=== PATIENT | female | born 1950 | race Caucasian/White ===

== ENCOUNTER 2018-12-26 13:17 | Emergency (ER) | payer OTHER, SELFPAY ==
[2018-12-26 13:18] VITALS: BP 148/99; PULSE 74; RESP 17; TEMP 36; O2SAT 100; BMI 35.2
--- NOTE | 2018-12-26 13:29 | EKG12_ITS ---
Test Reason : BACK PAIN Blood Pressure : / mmHG Vent. Rate : 074 BPM Atrial Rate : 074 BPM P-R Int : 146 ms QRS Dur : 078 ms QT Int : 384 ms P-R-T Axes : 027 054 041 degrees QTc Int : 426 ms Normal sinus rhythm Normal ECG Confirmed by WOODROW JOYCE, HANANE ([id number]), news editor KESHA ALBERT ([id number]) on 12/30/2018 1:35:01 PM Referred By: RADHA Confirmed By:HANANE TROY MD
--- NOTE | 2018-12-26 13:31 | ED.DCSUM_ITS ---
History of Present Illness Chief Complaint: Back Informant: Patient Onset: Today Timing: Continuous Current Severity: Mild Maximum Severity: Moderate Worsened by: Nothing Relieved by: Nothing Narrative: Patient states that she was doing mulch in her garden earlier today. When she came inside she had some mild pain to the right lateral posterior ribs. She went to the local grocery store and while there had pain shoot across her back around the bra line. She does not feel short of breath or have anterior chest pain. Patient has history of breast cancer. - Past Medical History (1) Asthma Status: Chronic (2) Diabetes Status: Chronic (3) HLD (hyperlipidemia) Status: Chronic (4) RSD (reflex sympathetic dystrophy) Status: Chronic (5) Breast cancer Status: Resolved Comment: in remission Past Medical History - Allergies and Home Meds Allergies/Adverse Reactions: Allergies typhoid 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 (Verified 12/26/18 13:21) Anaphylaxis Primary Care Physician: Liam Solano MD [Primary Care Provider] - Prior records reviewed: Yes Past Medical History: - - Reviewed Surgical History: mastectomy Smoking Status: Never smoker - Family History Paternal Family History: Reports: Heart Disease Maternal Family History: Reports: Cancer - Uterine and breast cancer, Stroke Review of Systems General: Denies: Chills, Fever Cardiovascular: Denies: Chest pain, Palpitations, Heart racing Respiratory: Denies: Dyspnea, Cough Genitourinary: Denies: Dysuria, Hematuria Musculoskeletal: Reports: Back pain. Denies: Extremity Pain Physical Exam Vital Signs/Narrative: Vital Signs Temp Pulse Resp BP Pulse Ox 12/26/18 13:18 96.8 F L 74 17 148/99 H 100 General: Well nourished, Well developed ENT: Moist mucous membranes Cardiovascular: Regular rate, Regular rhythm Respiratory: No distress, CTA bilaterally Abdomen: Soft, Nontender Back: Nontender, - - No reproducible back tenderness. No skin rash or lesions noted over the area of interest. Extremities: Nontender, No edema Neurological: Alert, Oriented x3 Diagnostic/Tx/Re-eval Chest X-Ray - ED: 2 View, Read by ED Physician, Normal, Heart, Mediastinum, - - Postsurgical changes noted with mild atelectasis. Abnormal Lab Results 12/26/18 12/26/18 12/26/18 13:33 13:33 13:33 WBC 6.8 RBC 4.90 Hgb 14.0 Hct 42.6 MCV 86.9 MCH 28.6 MCHC 32.9 RDW 13.7 RDW Differential 43.6 Plt Count 237 MPV 9.1 Immature Gran % (Auto) 0.300 Neut % (Auto) 63.9 Lymph % (Auto) 25.0 Swisher % (Auto) 7.5 Eos % (Auto) 2.9 Baso % (Auto) 0.4 Absolute Neuts (auto) 4.4 Absolute Lymphs (auto) 1.70 Total Counted Not Reportable D-Dimer Quant (PE/DVT) 0.52 H* Sodium 139 Potassium 4.1 Chloride 107 Carbon Dioxide 26.0 Anion Gap 6 BUN 13 Creatinine 0.93 Estim Creat Clear Calc 60.03 Est GFR (MDRD) Af Amer 77 Est GFR (MDRD) Non-Af 64 BUN/Creatinine Ratio 14.0 Glucose 97 Calcium 9.4 Troponin I < 0.015 - EKG Initial EKG Interpretation: Sinus Rhythm - Normal sinus rhythm at 74 bpm with no acute ischemia. - Medical Decision Making Patient presents with right back pain rating across to the left. She has a history of breast cancer. Pain is not reproducible. Work-up has been unremarkable for blood clots or other more serious etiology. Patient believes she probably pulled a muscle when she was working earlier. She will be given a short course of [place] and Flexeril. She was warned on sedating side effects. ED Disposition - Plan for ED Patient: Disposition: Home or Assisted Living Instructions: BACK PAIN (Acute or Chronic) Prescriptions: cycloBENZAPRine HCl [Flexeril] 10 mg PO TID PRN #20 tablet PRN Reason: Muscle Spasm Hydrocodone Bitart/Apap 5-325 [[place] 5MG-325MG] 1 tablet PO Q6H PRN PRN 3 Days #10 tablet PRN Reason: Pain Referrals: Liam Solano MD [Primary Care Provider] - 3-5 Days if not improving
[2018-12-26 13:44] LABS: Absolute Neutrophil Count 4.4 X10^3/uL (2.0-7.7); Basophil# 0.03 X10^3/uL; Basophil% 0.4 % (0-1); Eosinophils% 2.9 % (0-5); Hematocrit 42.6 % (37-47); Mean Corp Hgb Conc 32.9 g/gl (32-36); Mean Corpuscular Hgb 28.6 pg (27.0-32.0); Mean Corpuscular Volume 86.9 fL (81-99); Mean Platelet Vol. 9.1 fl (6.2-12.0); Monocyte# 0.51 X10^3/uL; Monocyte% 7.5 % (0-10); Neutrophil # 4.35 X10^3/uL (2.7-7.7); Neutrophil % 63.9 % (47-70); Platelet Count 237 K/mm3 (150-450); RBC Distribution Width CV 13.7 % (11.6-14.6); RBC Distribution Width SD 43.6 fl (35.1-43.9); White Blood Count 6.8 K/mm3 (4.4-11.0)
[2018-12-26] MEDS: 0.9% Normal Saline 1,000 ML 150 ML IV (13:44)
[2018-12-26 13:48] LABS: POSITIVE COUNT NO; POSITIVE DIFFERENTIAL NO; POSITIVE MORPHOLOGY NO
[2018-12-26 13:58] LABS: Anion Gap 6 (5-15); BUN 13 mg/dL (7-18); Calcium,Total 9.4 mg/dL (8.5-10.1); Chloride 107 mmol/L (98-107); Creatinine, Serum 0.93 mg/dL (0.55-1.02); EST Glomerular Filtration Rate 64 mL/min (>60); Est Glom Filt Rate - Afr Amer 77 mL/min (>60); Estimated Creatinine Clearance 60.03 ml/min; Glucose 97 mg/dL (74-106); Potassium 4.1 mmol/L (3.5-5.1); Sodium Level 139 mmol/L (136-145)
[2018-12-26 14:09] LABS: D-Dimer Quantitative (DVT/PE) 0.52 FEU/ug/m (0.27-0.49)
--- NOTE | 2018-12-26 15:15 | RAD_ITS ---
STUDY: X-RAY CHEST REASON FOR EXAM: Female, 68 years old. Back pain radiating to right shoulder blade. TECHNIQUE: Frontal and lateral views of the chest. COMPARISON: March 19, 2017 FINDINGS: Stable hyperexpansion. There is no demonstrated pleural abnormality. Borderline cardiomegaly unchanged. Normal mediastinum and vanessa. Normal visualized pulmonary arteries. Normal visualized aortic arch and descending thoracic aorta. Normal visualized thoracic spine. Normal visualized ribs, clavicles, and shoulders. Clips project over the left hilum unchanged. RAD/Chest PA and Lateral IMPRESSION: Stable chest with no acute finding. Electronically Signed: Fabián Jean MD at 16:00 EDT , Service support ,
[2018-12-26 15:50] VITALS: BP 157/84; PULSE 77; RESP 18; O2SAT 98
== END 2018-12-26 15:52 | disposition home or self-care (01) ==
PROVIDERS: Emergency Provider Emergency Medicine; Family Provider Family Medicine; PCP Family Medicine
DX: M54.6 Pain in thoracic spine (principal); Z85.3 Personal history of malignant neoplasm of breast; J45.909 Unspecified asthma, uncomplicated; E11.9 Type 2 diabetes mellitus without complications; G90.50 Complex regional pain syndrome I, unspecified; E78.5 Hyperlipidemia, unspecified; Z79.51 Long term (current) use of inhaled steroids; Z79.899 Other long term (current) drug therapy
CPT/HCPCS: 71046; 80048; 84484; 85025; 85379; 93005; 96360; 96361; 99284; J7030; A4216

== ENCOUNTER 2024-06-11 21:29 | Emergency (ER) | payer BC, SELFPAY ==
[2024-06-11 21:30] VITALS: BP 140/96; PULSE 84; RESP 18; TEMP 36.7; O2SAT 100; BMI 31.6
--- NOTE | 2024-06-11 22:01 | CT_ITS ---
EXAM: CT HEAD WITHOUT INTRAVENOUS CONTRAST CLINICAL INDICATION: dizziness TECHNIQUE: Multiple axial images were obtained of the head without intravenous contrast. This CT exam was performed using one or more of the following dose reduction techniques: automated exposure control, adjustment of the mA and/or kV according to patient size, and/or use of iterative reconstruction technique. COMPARISON: No relevant prior studies available. FINDINGS: BRAIN AND EXTRA-AXIAL SPACES: Unremarkable. No intra- or extra-axial hemorrhage. No evidence of acute infarct. No intracranial mass or mass effect. There is preservation of the malloy/white matter interface. Posterior fossa structures are unremarkable. Ventricles are appropriate for age. No hydrocephalus. Basal cisterns are patent. BONES/JOINTS: Unremarkable. No discrete lytic or blastic abnormalities. SINUSES: Mucosal thickening in the maxillary sinuses. MASTOID AIR CELLS: Unremarkable. Clear. ORBITS: Visualized globes, extraocular muscles, optic nerves and retrobulbar fat appear unremarkable. CT/Brain/Head without Contrast IMPRESSION: No acute findings in the head/brain. Electronically Signed: Eduar Alston MD at 23:18 EST ,
--- NOTE | 2024-06-11 22:01 | EKG12_ITS ---
Test Reason : DYSRHYTHMIA Blood Pressure : */* mmHG Vent. Rate : 86 BPM Atrial Rate : 86 BPM P-R Int : 168 ms QRS Dur : 76 ms QT Int : 372 ms P-R-T Axes : 64 49 48 degrees QTcB Int : 445 ms Sinus rhythm with frequent and consecutive Premature ventricular complexes Abnormal ECG Confirmed by SOO JOYCE, CARLOS ([id number]), pictures editor KESHA ALBERT ([id number]) on 06/12/2024 11:01:35 AM Referred By: BB Confirmed By: CARLOS VANN MD
--- NOTE | 2024-06-11 22:03 | ED.VIS.CHEST ---
HPI History of Present Illness Chief Complaint: Dizziness Informant: patient Onset/Context/Timing Onset: Today Narrative Narrative: 74-year-old female presents describing dizziness, palpitations, and chest pain. From her description it sounds like she had 2 different types of dizziness today. When she got up this morning more than 12 hours ago, she felt off balance, she felt very poorly like things were moving and like she was going to fall and immediately fell back into bed, and felt like she could not move because the symptoms were going to get worse. That lasted for only a few minutes. She has never had that before. About 1 hour ago or a little more, the patient started having a different type of dizziness, she agrees to feels more faint/lightheaded and associated with frequent palpitations that feel like her heart is skipping a lot. She states she feels a little wobbly still when she tries to get up and walk and it does make the lightheadedness worse but she denies any aquiles vertiginous symptoms, she states her vision feels a little fuzzy but she denies any diplopia or focal visual field deficit or any other focal peripheral neurologic symptoms. No hearing changes or tinnitus. She denies any nausea or vomiting with any of this. She states she followed up as an outpatient with camp coordinator for the first time several weeks ago at [facility] and was basically told to go up on her atorvastatin but did not change any other medications. She states the only heart history that she knows of is a little bit of calcification around the valve. Denies any recent illness. Chest pain that she has right now is just right of sternum and just feels mild without radiation or pleuritic component. PE Risk Factors: Negative for Recent Travel/Surgery, Recent Immobilization, Prior DVT or PE, Cancer or OCP + Smoking + >/=35 [facility] Medical History Hypothyroidism History of cancer chemotherapy Home Medications ?Medication ?Instructions ?Recorded ?Last Taken ?Type Amitriptyline HCl 25 mg PO QHS 12/13/15 03/18/17 20:00 History Lipitor 40 mg PO QHS 12/13/15 03/18/17 20:00 History Synthroid 100 mcg PO DAILY 12/13/15 03/18/17 07:00 History albuterol sulfate 90 mcg/actuation 1 puff inhalation DAILY PRN PRN 12/26/15 12/26/15 History aerosol inhaler (Ventolin HFA) Shortness Of Breath guaifenesin 1,200 mg tablet, 1,200 mg PO BID 12/26/15 03/18/17 20:00 History extended release 12 hr (Mucus Relief ER) albuterol sulfate 2.5 mg/3 mL 2.5 mg inhalation Q4H PRN PRN 03/19/17 03/18/17 07:00 History (0.083 %) solution for nebulization Shortness Of Breath metoprolol succinate 25 mg 25 mg PO DAILY #30 tabs 06/12/24 Unknown Rx tablet,extended release 24 hr Allergy/AdvReac Type Severity Reaction Status Date / Time typhoid 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 Anaphylaxis Verified 06/11/24 21:30 Surgical History (Updated 06/11/24 @ 21:49 by Suad Fragoso) History of tonsillectomy Hx of mastectomy Social History Smoking Status: Never smoker ROS ROS ED Constitutional Constitutional ED: Denies chills or fever(s) Eyes Eyes: Denies change in vision or diplopia ENT ENT ED: Denies rhinorrhea or sore throat Cardiovascular Cardiovascular: Reports as per HPI, chest pain, lightheadedness and palpitations; Denies leg edema or syncope Respiratory/Chest Respiratory/Chest: Denies cough or dyspnea Gastrointestinal Gastrointestinal: Denies abdominal pain, diarrhea, nausea or vomiting Genitourinary Genitourinary ED: Denies dysuria or hematuria Musculoskeletal Musculoskeletal: Denies back pain or neck pain Integumentary Denies abscess or rash Neurologic Neurologic: Reports as per HPI, abnormal gait and dizziness; Denies abnormal hearing, abnormal speech, headache(s), paresthesias, seizure-like activity or weakness Psychiatric Psychiatric: Denies anxiety or suicidal thoughts EXAM Physical Exam Const Vital Signs: 06/11/24 21:30 06/11/24 21:47 06/11/24 22:30 Temperature 98.1 F Temperature Source Oral Pulse Rate 84 Respiratory Rate 18 Respiratory Effort Normal Non-Labored Respiratory Pattern Normal Blood Pressure 140/96 H Blood Pressure Mean 110 Pulse Ox 100 97 Oxygen Delivery Method Room Air Room Air 06/11/24 23:30 Temperature Temperature Source Pulse Rate 86 Respiratory Rate 16 Respiratory Effort Respiratory Pattern Blood Pressure 116/64 Blood Pressure Mean 81 Pulse Ox 96 Oxygen Delivery Method Room Air Positive well nourished and well developed General Appearance ED: well developed and NAD HEENT Reports TM's clear and moist mucous membranes normocephalic and atraumatic Tympanic Membrane ED: Yes TM's clear Eyes PERRL and EOMs intact bilaterally Neck full ROM and supple Resp normal respiratory effort Resp Narrative: Bibasilar rhonchi, symmetric. Conversive in full sentences. Cardio regular rate and regular rhythm Rate: other Other Details: Frequent irregularity. No tachycardia. GI non-tender and non-distended Auscultation: normoactive bowel sounds Palpation: soft Back/Spine no CVA tenderness General Back: other FROM Extremity normal to inspection General Extremety ED: Negative for edema, pulses abnormal or tenderness General Extremity: Negative for edema or pulses abnormal Neuro oriented x3, CN's II-XII intact bilaterally and no sensory deficits noted Neuro Narrative: Normal speech. No dysmetria arms and legs. Patient states she is dizzy right now, jolt test is normal. There is no pathologic nystagmus. Sensorium / Orientation: awake and alert Motor Exam: strength 5/5 throughout Psych mental status grossly normal Skin no rashes or lesions noted and no wounds MDM MDM MDM Narrative Medical decision making narrative: Patient agrees she had 2 different types of dizziness this morning when I talked with her in detail. She had disequilibrium this morning, but she is not having that now although she states she still feels wobbly when she walks. She feels more lightheaded when she is having frequent palpitations and these symptoms coincide with each other, making more likely to be lightheadedness. Her blood pressure at the time of evaluation is 124 systolic. Given her metoprolol 5 mg IV in addition to IV fluids while performing a workup including CT of the head and a cardiac workup. I did a jolt test, the result is normal however the patient is not actively vertiginous (she was actively dizzy, but it is most likely lightheadedness not vertigo). The workup is unremarkable. Two-view chest x-ray is normal in my interpretation and the CT of the head is normal on my interpretation, I reviewed the radiology interpretation they agree. Her EKG is normal except for frequent PVCs which I think is causing her current dizziness/lightheadedness. On reevaluation after the metoprolol 5 mg and IV fluids, she is feeling much better and her PVCs are much less frequent. She states she has had PVCs all her life but never experienced it like this. I reassured her that they are frequent PVCs as opposed to a dysrhythmia. She sees cardiology at [facility]. We did true sequential troponins that are both negative. Therefore I do not think her chest discomfort is acute coronary syndrome and uncomfortable having her be discharged home with close outpatient follow-up and ongoing of put her on metoprolol succinate 25 mg once daily until she follows up. With regards to the episodic vertigo that she had 1 episode of this morning, we gave her appropriate instructions regarding this, I offered a Shweta-Hallpike which she does not want, and follow-up advised if she continues to have episodes. History & Record Review Additional record(s) reviewed:: No prior records Lab Data Attestation: I reviewed the patient's lab results. Labs: Laboratory Results - last 24 hr 06/11/24 06/12/24 22:29 00:42 WBC 6.9 RBC 4.38 Hgb 13.1 Hct 39.5 MCV 90.2 MCH 29.9 MCHC 33.2 RDW Std Deviation 44.3 H RDW Coeff of Sarah 13.2 Plt Count 241 MPV 9.4 Immature Gran % (Auto) 0.400 Neut % (Auto) 56.0 Lymph % (Auto) 27.8 Roane % (Auto) 8.9 Eos % (Auto) 6.2 H Baso % (Auto) 0.7 Absolute Neuts (auto) 3.9 Absolute Lymphs (auto) 1.93 Nucleated RBC % 0 Sodium 140 Potassium 4.0 Chloride 107 Carbon Dioxide 29.0 Anion Gap 4 L BUN 12 Creatinine 0.75 Estim Creat Clear Calc 73.94 Est GFR (MDRD) Af Amer 97 Est GFR (MDRD) Non-Af 80 BUN/Creatinine Ratio 15.9 Glucose 94 Calcium 9.7 Troponin I High Sens 7 8 Radiography Diagnostic Testing: Clinical Impression(s) from Imaging Studies Brain CT 06/11/24 22:01 IMPRESSION: No acute findings in the head/brain. Electronically Signed: Eduar Alston MD at 23:18 EST , Chest X-Ray 06/11/24 22:50 IMPRESSION: No radiographic evidence of acute cardiopulmonary disease. Electronically Signed: Eduar Alston MD at 23:11 EST , Rhythm Strip Rhythm Strip: Sinus Rhythm Rate: 85 Ectopy: PVC(s) EKG Initial EKG: Attestation: I personally reviewed and interpreted this EKG as follows: Interpretation: Sinus Rhythm and No Acute Injury Pattern Comments: freq PVCs. nml intervals. nml axis. Discharge Plan Triage Chief Complaint: Dizziness Other Complaint: Palpitations ED Provider: Arnoldo Morales Dx/Rx/DC Orders Clinical Impression: Lightheadedness, Frequent PVCs, Episodic peripheral vertigo Instructions: PVCs, ED BPV Vertigo Prescriptions: New metoprolol succinate 25 mg tablet extended release 24 hr 25 mg PO DAILY Qty: 30 0RF No Action Amitriptyline HCl 25 mg PO QHS Patient Comments: sleep/mental health Lipitor 40 mg PO QHS Patient Comments: cholesterol Synthroid 100 mcg PO DAILY Patient Comments: thyroid albuterol sulfate [Ventolin HFA] 1 INHALER inhaler 1 puff inhalation DAILY PRN PRN (Reason: Shortness Of Breath) Patient Comments: breathing guaifenesin [Mucus Relief ER] 1,200 MG tablet 1,200 mg PO BID Patient Comments: cough albuterol sulfate 2.5 MG/3 ML solution for nebulization 2.5 mg inhalation Q4H PRN PRN (Reason: Shortness Of Breath) Patient Comments: breathing Primary Care Provider: Liam Solano Referrals: Liam Solano MD [Primary Care Provider] - (and f/u with your camp coordinator) Print Language: [place] Disposition Disposition: Home, Self Care
[2024-06-11 22:30] VITALS: O2SAT 97
[2024-06-11] MEDS: Metoprolol Tartrate 5 MG/5 ML Vial IV (22:33)
[2024-06-11] MEDS: Aspirin 81 MG TAB.CHEW 324 MG PO (22:33)
[2024-06-11] MEDS: 0.9% Normal Saline (500mL Bag) 500 ML 999 ML IV (22:34)
[2024-06-11 22:36] LABS: Absolute Lymphocyte Count 1.93 X10^3/uL (0.83-4.51); Absolute Neutrophil Count 3.9 X10^3/uL (2.0-7.7); Basophil# 0.05 X10^3/uL; Basophil% 0.7 % (0-1); Eosinophil# 0.43 X10^3/uL; Eosinophils% 6.2 % (0-5); Hematocrit 39.5 % (37-47); Hemoglobin 13.1 g/dL (12.0-15.0); Lymphocyte # 1.93 X10^3/ul (0.83-4.51); Lymphocyte % 27.8 % (19-41); Mean Corp Hgb Conc 33.2 g/dL (32-36); Mean Corpuscular Hgb 29.9 pg (27.0-32.0); Mean Corpuscular Volume 90.2 fL (81-99); Mean Platelet Vol. 9.4 fl (6.2-12.0); Monocyte# 0.62 X10^3/uL; Monocyte% 8.9 % (0-10); NRBC Flagged by Analyzer 0 % (0-5); Neutrophil # 3.87 X10^3/uL (2.7-7.7); Platelet Count 241 K/mm3 (150-450); RBC Distribution Width CV 13.2 % (11.6-14.6); RBC Distribution Width SD 44.3 fl (35.1-43.9); Red Blood Count 4.38 M/mm3 (4.2-5.4); White Blood Count 6.9 K/mm3 (4.4-11.0)
--- NOTE | 2024-06-11 22:50 | RAD_ITS ---
EXAM: XR CHEST, 1 VIEW CLINICAL INDICATION: chest pain TECHNIQUE: Frontal view of the chest. COMPARISON: 12/26/2018 FINDINGS: LUNGS AND PLEURAL SPACES: Unremarkable. No consolidation or edema. No pneumothorax. No effusion. HEART: Unremarkable. Cardiac silhouette not enlarged. MEDIASTINUM: Central airways and mediastinal contour are unremarkable. BONES/JOINTS: Unremarkable. No acute fracture. SOFT TISSUES: Unremarkable. RAD/Chest 1 View (Portable) IMPRESSION: No radiographic evidence of acute cardiopulmonary disease. Electronically Signed: Eduar Alston MD at 23:11 EST ,
[2024-06-11 22:54] LABS: Anion Gap 4 (5-15); BUN 12 mg/dL (7-18); BUN/Creat Ratio 15.9 RATIO (10-20); Calcium,Total 9.7 mg/dL (8.5-10.1); Chloride 107 mmol/L (98-107); Creatinine, Serum 0.75 mg/dL (0.55-1.02); EST Glomerular Filtration Rate 80 mL/min (>60); Est Glom Filt Rate - Afr Amer 97 mL/min (>60); Estimated Creatinine Clearance 73.94 ml/min; Glucose 94 mg/dL (74-106); Sodium Level 140 mmol/L (136-145); Troponin-I HS (w/2H Reflex) 7 pg/mL (3.0-54.0)
[2024-06-11 23:30] VITALS: BP 116/64; PULSE 86; RESP 16; O2SAT 96
[2024-06-12 00:32] LABS: Reflex Troponin-HS? (from REC) Y
[2024-06-12 01:00] VITALS: BP 106/57; PULSE 87; RESP 21; O2SAT 96
[2024-06-12 01:08] LABS: Troponin-I HS 8 pg/mL (3.0-54.0)
[2024-06-12 01:24] VITALS: BP 124/67; BP 128/78; BP 130/67; PULSE 82; PULSE 83
[2024-06-12 01:29] VITALS: BP 130/67; PULSE 87; RESP 18; TEMP 37; O2SAT 100
== END 2024-06-12 01:30 | disposition home or self-care (01) ==
PROVIDERS: Emergency Provider Emergency Medicine; PCP Family Medicine; Visit Provider Emergency Medicine
DX: I49.3 Ventricular premature depolarization (principal); R07.9 Chest pain, unspecified; R00.2 Palpitations; Z79.899 Other long term (current) drug therapy; H81.399 Other peripheral vertigo, unspecified ear
CPT/HCPCS: 70450; 71045; 80048; 84484; 85025; 93005; 96361; 96374; 99285; A4216

== ENCOUNTER → 2025-03-04 | Outpatient (CLI) | payer BC, SELFPAY ==
--- NOTE | 2025-03-04 16:25 | MRI_ITS ---
PROCEDURE: LOWER EXT/NO JT/W/O 03/04/2025 REASON FOR EXAM: PAIN, STRESS FRACTURE TECHNIQUE: Procedure Code: [id number] Modality: MR Procedure: LOWER EXT/NO JT/W/O Multiplanar and multisequence images were obtained without IV contrast administration through the left forefoot. COMPARISON: COMPARISON : None FINDINGS: Bone Marrow: There is no abnormal bone marrow signal. Joints: No joint effusion. Mild degenerative changes of the 1st MTP joint. Remaining joint space levels are preserved. Lisfranc joint is normal. Soft Tissues: Mild diffuse soft tissue edema. No abnormal fluid collection or mass. Ligaments and Tendons: Flexor and extensor tendons are normal. Intrinsic ligaments about the forefoot are intact. MRI/Lower Ext/No Jt/w/o IMPRESSION: Mild diffuse soft tissue edema. No evidence to suggest a stress fracture. Degenerative changes of the 1st MTP joint. Reading Location: [id number]
--- OUTSIDE RECORDS SUMMARY | 2025-03-04 22:28 | XMS RPT_ITS | CCD ---
Author Organization [facility] Care Team Providers Care Research & Insights Executive Name Role Phone Liam Wilkins MD Primary Care Provider Liam Wilkins MD Primary Care Provider Jes LARGE ENGINE ASSEMBLER.Jojo ALEX Unavailable Obdulia Rowley PA-C Unavailable [phone] Liam Wilkins MD Primary Care Provider Jes LARGE ENGINE ASSEMBLER.Jojo ALEX Unavailable Obdulia Rowley PA-C Unavailable [phone] PROVIDER, UNKNOWN Referring Unavailable PROVIDER, UNKNOWN Primary Care Unavailable Claudette, Liam Primary Care Unavailable Arnoldo Morales Attending Unavailable Liam Verdugo Referring Unavailable Claudette, Liam Primary Care Unavailable Liam Verdugo Attending Unavailable JESSICA ONEIL Attending Unavailable CLAUDETTE, LIAM A Referring Unavailable CLAUDETTE, LIAM A Primary Care Unavailable CLAUDETTE, LIAM A Referring Unavailable CLAUDETTE, LIAM A Primary Care Unavailable CLAUDETTE, LIAM A Primary Care Unavailable OBDULIA ROWLEY Attending Unavailable CLAUDETTE, LIAM A Primary Care Unavailable OBDULIA ROWLEY Referring Unavailable CLAUDETTE, LIAM A Primary Care Unavailable CLAUDETTE, LIAM A Attending Unavailable CLAUDETTE, LIAM A Primary Care Unavailable RAMAN MACIEL Attending Unavailable CLAUDETTE, LIAM A Primary Care Unavailable RAMAN MACIEL Referring Unavailable CLAUDETTE, LIAM A Primary Care Unavailable CLAUDETTE, LIAM A Attending Unavailable CLAUDETTE, LIAM A Primary Care Unavailable REGINA MCPHERSON Attending Unavailab le CLAUDETTE, LIAM A Primary Care Unavailable CLAUDETTE, LIAM A Referring Unavailable CLAUDETTE, LIAM A Primary Care Unavailable RAMAN MACIEL Referring Unavailable LIAM GONZALES Attending Unavailable CALUDETTE, LIAM A Primary Care Unavailable CLAUDETTE, LIAM A Primary Care Unavailable OBDULIA ROWLEY Attending Unavailable CLAUDETTE, LIAM A Primary Care Unavailable CLAUDETTE, LIAM A Referring Unavailable CLAUDETTE, LIAM A Primary Care Unavailable RAMAN MACIEL Referring Unavailable CLAUDETTE, LIAM A Primary Care Unavailable CLAUDETTE, ILAM A Referring Unavailable CLAUDETTE, LIAM A Primary Care Unavailable CLAUDETTE, LIAM A Attending Unavailable CLAUDETTE, LIAM A Primary Care Unavailable JOJO ANDERSON Attending Unavailable CLAUDETTE, LIAM A Primary Care Unavailable CLAUDETTE, LIAM A Referring Unavailable SHERRY BRUCE Attending Unavailable CLAUDETTE, LIAM A Primary Care Unavailable JOJO ANDERSON Referring Unavailable CLAUDETTE, LIAM A Primary Care Unavailable OBDULIA ROWLEY Referring Unavailable CLAUDETTE, LIAM A Primary Care Unavailable OBDULIA ROWLEY Referring Unavailable CLAUDETTE, LIAM A Primary Care Unavailable Allergies Allergy Classification Reported Allergen(s) Allergy Type Date of Onset Reaction(s) Facility Adhesive Tape (1 source) Adhesive Tape Substance Allergy 04-17-20 11 Other: See Comments [facility] Work Phone: Cats (1 source) Cat Animal Allergy (Dander) 05-12-20 05 Intolerance [facility] Dogs (1 source) Dog Animal Allergy (Dander) 05-12-20 05 Intolerance [facility] Dust (1 source) Dust Substance Allergy 05-12-20 05 Intolerance [facility] Mold Extract (1 source) Mold Extract Drug Allergy 05-12-20 05 Intolerance [facility] NSAIDs (2 sources) Diclofenac Drug Allergy 01-04-20 16 Other: See Comments [facility] Typhoid Vi Polysaccharide Vaccine, S typhi Ty2 strain (1 source) Typhoid Vi Polysaccharide Vaccine, S typhi Ty2 strain Drug Allergy 05-12-20 05 Intolerance [facility] (20 sources) Adhesive Tape; Translations: [ADHESIVE TAPE (ROSINS)] Allergy to substance 04-17-20 11 Other: See Comments [facility] Work Phone: (20 sources) Cat; Translations: [CATS] Allergy to substance 05-12-20 05 Intolerance [facility] Work Phone: (20 sources) Diclofenac; Translations: [DICLOFENAC] Drug Allergy 01-04-20 16 Other: See Comments [facility] Work Phone: (20 sources) Dog; Translations: [DOGS] Allergy to substance 05-12-20 05 Intolerance [facility] Work Phone: (20 sources) Dust; Translations: [DUST] Allergy to substance 05-12-20 05 Intolerance [facility] Work Phone: [phone] (20 sources) meloxicam; Translations: [MELOXICAM] Drug Allergy 01-10-20 16 Other: See Comments [facility] Work Phone: (20 sources) Mold Extract; Translations: [MOLD] Drug Allergy 05-12-20 05 Intolerance [facility] Work Phone: [phone] (20 sources) Typhoid Vi Polysaccharide Vaccine, S typhi Ty2 strain; Translations: [TYPHOID VACCINE] Drug Allergy 05-12-20 05 Intolerance [facility] Work Phone: (20 sources) environmental [Other] Propensity to adverse reactions 09-14-19 12 Other: See Comments [facility] Work Phone: (20 sources) Carbamazepine Analogues; Translations: [CARBAMAZEPINE ANALOGUES] Drug Intolerance 11-25-19 09 Intolerance [facility] Work Phone: (1 source) typhoid vaccine Drug allergy (disorder) 06-11-20 24 [facility] Medications Current Medications Medication Drug Class(es) Dates Sig (Normalized) Sig (Original) acetaminophen 500 mg oral tablet (20 sources) take 2 tablets by mouth every twenty-four hours as needed acetaminophen (TYLENOL) 500 mg tablet Take 1,000 mg by mouth at bedtime as needed. Active Comment on above: Take 1,000 mg by keren th at bedtime as needed. amitriptyline hydrochloride 25 mg oral tablet (20 sources) Tricyclic Antidepressant Start: 07-06-2021 End: 03-02-2025 take 2 tablets by mouth once daily at bedtime amitriptyline (ELAVIL) 25 mg tablet Take 2 tablets by mouth daily at bedtime. 180 tablet 1 03/02/2025 Active Start: 08-25-2020 End: 03-03-2021 take 2 tablets by mouth once daily at bedtime amitriptyline (ELAVIL) 25 mg tablet Take 2 tablets by mouth daily at bedtime. 180 tablet 1 08/25/2020 03/03/2021 Discontinued Comment on above: Take 2 tablets by mo [facility] daily at bedtime. take 2 tablets by mo [facility] at bedtime amoxicillin 875 mg / clavulanate 125 mg oral tablet (4 sources) Penicillin-class Antibacterial Start: End: take 1 tablet by mouth every twelve hours amoxicillin-clavul anate potassium (AUGMENTIN) 875-125 mg per tablet Take 1 tablet by mouth every 12 hours for 10 days. 20 tablet 11/26/2024 12/06/2024 Active Start: 01-03-2023 End: 01-10-2023 take 1 tablet by mouth twice daily amoxicillin-clavulanic acid (AUGMENTIN) 875-125 mg per tablet Take 1 tablet by mouth twice daily for 7 days. 14 tablet 0 01/03/2023 01/10/2023 Active Comment on above: Take 1 tablet by keren twice daily for 7 days. atorvastatin 80 mg oral tablet (20 sources) HMG-CoA Reductase Inhibitor Start: End: take 1 tablet by mouth once daily atorvastatin (LIPITOR) 80 mg tablet Take 1 tablet by mouth once daily. 90 tablet 1 11/26/2024 Active Start: 07-06-2021 End: 04-23-2024 take 1 tablet by mouth once daily atorvastatin (LIPITOR) 40 mg tablet Take 1 tablet by mouth once daily. 90 tablet 1 03/07/2024 04/23/2024 Discontinued Start: 08-25-2020 End: 03-30-2021 take 1 tablet by mouth once daily atorvastatin (LIPITOR) 40 mg tablet Take 1 tablet by mouth once daily. 90 tablet 1 08/25/2020 03/30/2021 Discontinued Comment on above: Take 1 tablet by keren once daily. take 1 tablet by keren th once daily clobetasol propionate 0.0005 mg/mg topical ointment (20 sources) Corticosteroid Start: 11-12-2024 clobetasol (TEMOVATE) 0.05 % ointment Indications: Lichen sclerosus Apply 1 application to affected area two times a day. 60 g 3 11/12/2024 Active Start: 11-09-2023 clobetasol (TE MOVATE) 0.05 % ointment Indications: Lichen sclerosus Apply 1 application to affected area two times a day. TO AFFECTED AREA. 60 g 3 11/09/2023 Active Start: 09-30-2020 End: 04-06-2023 clobetasol (TEMOVATE) 0.05 % ointment Apply 1 application to affected area twice daily. TO AFFECTED AREA for 2 weeks. 60 g 2 09/30/2020 04/06/2023 Discontinued (Course of therapy completed) Comment on above: Apply 1 application to affected area twice daily. TO AFFECTED AREA for 2 weeks. COMPOUNDED PRESCRIPTION (20 sources) Start: 02-07-2017 COMPOUNDED PRESCRIPTION NEBULIZER and supplies FOR HOME USE. DX: J45.30, J45.90. Length of need is life. This is a medically necessary devise for management of patients lung disease. Current machine recently stopped working. While trying to use it started to smoke and stopped. 1 Each 02/07/2017 Active Start: 02-07-2017 COMPOUNDED PRE SCRIPTION NEBULIZER and supplies FOR HOME USE. DX: J45.30, J45.90. Length of need is life. This is a medically necessary devise for management of patients lung disease. Current machine recently stopped working. While trying to use it started to smoke and stopped. 1 Each 0 02/07/2017 Active Comment on above: NEBULIZER and suppli es FOR HOME USE. DX: J45.30, J45.90. Length of need is life. This is a medically necessary devise for management of patients lung disease. Current machine recently stopped working. While trying to use it started to smoke and stopped. ezetimibe 10 mg oral tablet (1 source) Dietary Cholesterol Absorption Inhibitor Start: 03-04-20 25 End: 03-04-20 26 take 1 tablet by mouth once daily ezetimibe (ZETIA) 10 mg tablet Take 1 tablet by mouth once daily. 30 tablet 11 03/04/2025 03/04/2026 Active levothyroxine sodium 0.1 mg oral tablet (20 sources) l-Thyroxine Start: 07-06-19 22 End: 09-26-19 25 take 1 tablet by mouth once daily before breakfast levothyroxine (SYNTHROID) 100 mcg tablet Take 1 tablet by mouth daily before breakfast. 90 tablet 1 09/25/2024 Active Start: 08-09-2020 End: 03-08-2021 take 1 tablet by mouth once daily before breakfast levothyroxine (SYNTHROID) 100 mcg tablet Take 1 tablet by mouth daily before breakfast. 90 tablet 1 08/09/2020 03/08/2021 Discontinued Comment on above: Take 1 tablet by keren th daily before breakfast. take 1 tablet by keren th EVERY MORNING BEFORE BREAKFAST 24 hr metoprolol succinate 25 mg extended release oral tablet (20 sources) beta-Adrenergic Del Start: 4 End: 5 take 1 tablet by mouth once daily metoprolol succinate ER (TOPROL XL) 25 mg 24 hr tablet Indications: PVC (premature ventricular contraction) Take 1 tablet by mouth once daily. 90 tablet 1 12/31/2024 Active mupirocin 0.02 mg/mg topical ointment (1 source) RNA Synthetase Inhibitor Antibacterial Start: 3 End: 3 mupirocin (BACTROBAN) 2 % ointment Apply to affected area three times daily for 7 days. 30 g 0 01/03/2023 01/10/2023 Active Comment on above: Apply to affected ar ea three times daily for 7 days. naproxen 500 mg oral tablet (20 sources) Nonsteroidal Anti-inflammatory Drug Start: 5 take 1 tablet by mouth every twelve hours as needed naproxen (NAPROSYN) 500 mg tablet Take 1 tablet by mouth two times a day as needed (for pain/inflammation). Take with food. 30 tablet 01/21/2025 Active Start: 03-27-2023 End: 04-23-2024 take 1 tablet by mouth every twelve hours as needed naproxen (NAPROSYN) 500 mg tablet Take 1 tablet by mouth two times a day as needed (for pain/inflammation). Take with food. 60 tablet 1 05/18/2023 04/23/2024 Discontinued (Course of therapy completed) Comment on above: Take 1 tablet by keren th two times a day as needed (for pain/inflammation). Take with food. pioglitazone 30 mg oral tablet (20 sources) Peroxisome Proliferator Receptor alpha Agonist, Peroxisome Proliferator Receptor gamma Agonist, Thiazolidinedione Start: 06-23-2 025 take 1 tablet by mouth once daily pioglitazone (ACTOS) 30 mg tablet Take 1 tablet by mouth once daily. 90 tablet 1 12/15/2024 Active Start: 10-29-2024 End: 12-15-2024 take 2 tablets by mouth once daily pioglitazone (ACTOS) 15 mg tablet Take 2 tablets by mouth once daily. 90 tablet 1 10/29/2024 12/15/2024 Discontinued Start: 04-17-2023 End: 04-23-2024 take 1 tablet by mouth once daily pioglitazone (ACTOS) 30 mg tablet Take 1 tablet by mouth once daily. 90 tablet 1 04/17/2023 04/23/2024 Discontinued (Clinical Decision) Start: 07-06-2021 End: 04-17-2023 take 1 tablet by mouth once daily pioglitazone (ACTOS) 15 mg tablet Take 1 tablet by mouth once daily. 90 tablet 1 07/06/2021 01/04/2022 Discontinued Start: 08-25-2020 End: 03-08-2021 take 1 tablet by mouth once daily pioglitazone (ACTOS) 15 mg tablet Take 1 tablet by mouth once daily. 90 tablet 1 08/25/2020 03/08/2021 Discontinued Comment on above: Take 1 tablet by keren th once daily. predniSONE 10 mg oral tablet (20 sources) Start: 11-26-2024 End: 12-05-2024 predniSONE (DELTASONE) 10 mg tablet Take 4 tabs daily for 3 days, then 2 tabs daily for 3 days, then 1 tab daily for 3 days with food. 21 tablet 11/26/2024 12/05/2024 Active Start: 11-21-2024 End: 11-26-2024 take 2 tablets by mouth once daily predniSONE (DELTASONE) 20 mg tablet Take 2 tablets by mouth once daily for 5 days. 10 tablet 11/21/2024 11/26/2024 Discontinued Start: 02-22-2022 End: 05-17-2022 predniSONE (DELTASONE) 10 mg tablet Take 4 tabs daily for 3 days, then 2 tabs daily for 3 days, then 1 tab daily for 3 days with food. 21 tablet 0 02/22/2022 05/17/2022 Discontinued Comment on above: Take 4 tabs daily fo r 3 days, then 2 tabs daily for 3 days, then 1 tab daily for 3 days with food. Completed/Discontinued Medications Medication Drug Class(es) Dates Sig (Normalized) Sig (Original) albuterol 0.83 mg/ml inhalation solution (20 sources) beta2-Adrenergic Agonist Start: 11-26-2024 End: 11-26-2024 albuterol 2.5 mg /3 mL (0.083 %) 2.5 mg (PROVENTIL) Start: 11-26-2024 End: 11-26-2024 take 1 dose by inhalation once 2.5 mg, INHALATION, ONC E, 1 dose, On Sun11/26/24 at 0900 Start: 09-27-2020 End: 11-21-2024 take 2 puff(s) by inhalation every four hours as needed VENTOLIN HFA 90 mcg/actuation inhaler Inhale 2 puffs as instructed every 4 hours as needed. 18 g 2 11/21/2024 Active Start: 06-30-2020 End: 10-29-2024 albuterol (PROVENTIL) 2.5 mg /3 mL (0.083 %) nebulizer solution inhale 3 milliliters in nebulizer every 4 hours if needed for wheezing /SHORTNESS OF BREATH. USE OVER 5 -15 MINUTES 150 mL 2 10/20/2021 10/29/2024 Discontinued Comment on above: inhale 3 milliliters in nebulizer every 4 hours if needed for wheezing /SHORTNESS OF BREATH. USE OVER 5 -15 MINUTES Inhale 2 Puffs as in structed every 4 hours as needed for Wheezing/Shortness of Breath. aspirin 81 mg delayed release oral tablet (20 sources) Platelet Aggregation Inhibitor, Nonsteroidal Anti-inflammatory Drug Start: 07-13-19 End: 09-10-19 23 take 1 tablet by mouth once daily aspirin, enteric coated (ASPIRIN, ENTERIC COATED) 81 mg EC tablet Take 1 tablet by mouth once daily. 07/13/2021 09/09/2022 Discontinued Comment on above: Take 1 tablet by keren th once daily. 30 ml bupivacaine hydrochloride 2.5 mg/ml injection (5 sources) Amide Local Anesthetic Start: 08-15-19 End: 08-15-19 bupivacaine (PF) 0.25 % (2.5 mg/mL) 4 mL injection (SENSORCAINE MPF) Start: 08-15-2024 End: 08-15-2024 4 mL, Injection - FOR ORTHO USE ONLY, ONCE, 1 dose, Starting on Sun08/15/24 at 1447, Until Sun08/15/24 at 1447 Start: 02-27-2024 End: 02-27-2024 bupivacaine (PF) 0.25 % (2.5 mg/mL) 4 mL injection (SENSORCAINE MPF) Start: 02-27-2024 End: 02-27-2024 4 mL, Injection - FOR ORTHO USE ONLY, ONCE, 1 dose, Starting on Sun02/27/24 at 1002, Until Sun02/27/24 at 1002 Start: 05-23-2022 End: 05-23-2022 bupivacaine (PF) 0.5 % (5 mg /mL) 20 mg injection calcipotriene 0.52035 mg/mg topical ointment (20 sources) Vitamin D Analog Start: 11-14-2018 End: 01-04-2022 calcipotriene (DOVONEX) 0.005 % oint Apply 1 application to affected area twice daily. For affected area on the lip. 60 g 2 11/14/2018 01/04/2022 Discontinued Comment on above: Apply 1 application to affected area twice daily. For affected area on the lip. cefadroxil 500 mg oral capsule (20 sources) Cephalosporin Antibacterial Start: 12-31-2024 End: 01-10-2025 take 1 capsule by mouth twice daily cefADROxil (DURICEF) 500 mg capsule Take 1 capsule by mouth two times a day for 10 days. 20 capsule 12/31/2024 01/10/2025 Start: 07-15-2021 End: 01-04-2022 take 1 capsule by mouth twice daily cefADROxil (DURICEF) 500 mg capsule Take 1 capsule by mouth twice daily. 20 capsule 07/15/2021 01/04/2022 Discontinued (Course of therapy completed) Comment on above: Take 1 capsule by [facility] twice daily. cephalexin 500 mg oral capsule (4 sources) Cephalosporin Antibacterial Start: 023 End: 023 take 1 capsule by mouth twice daily cephALEXin (KEFLEX) 500 mg capsule Take 1 capsule by mouth twice daily for 7 days. 14 capsule 09/15/2022 09/22/2022 Comment on above: Take 1 capsule by [facility] twice daily for 7 days. docusate sodium 100 mg oral capsule (20 sources) Start: End: take 1 capsule by mouth twice daily docusate sodium (COLACE) 100 mg capsule Indications: S/P left rotator cuff repair Take 1 capsule by mouth two times a day. 30 capsule 1 07/02/2023 04/23/2024 Discontinued (Course of therapy completed) Comment on above: Take 1 capsule by [facility] two times a day. doxycycline hyclate 100 mg oral tablet (4 sources) Tetracycline-class Drug Start: End: take 1 tablet by mouth twice daily doxycycline (VIBRA-TABS) 100 mg tablet Take 1 tablet by mouth two times a day for 5 days. 10 tablet 11/21/2024 11/26/2024 Discontinued ergocalciferol 1.25 mg oral capsule (20 sources) Provitamin D2 Compound Start: End: ergocalciferol 50,000 unit capsule (VITAMIN D2, DRISDOL) Every other week 6 capsule 3 04/17/2023 04/23/2024 Discontinued (Clinical Decision) Start: 11-25-2020 End: 04-17-2023 take 1 capsule by mouth every week ergocalciferol 50,000 unit capsule (VITAMIN D2, DRISDOL) Take 1 capsule by mouth one time a week. 12 capsule 3 03/30/2021 05/01/2022 Discontinued Comment on above: Take 1 capsule by [facility] one time a week. Every other week erythromycin 0.005 mg/mg ophthalmic ointment (14 sources) Macrolide, Macrolide Antimicrobial Start: 12-31-19 End: 02-25-20 erythromycin (ROMYCIN) 5 mg/gram (0.5 %) ophthalmic ointment Use 1 application in both eyes two times a day. 12/30/2024 02/24/2025 Discontinued (Course of therapy completed) fluticasone / salmeterol (20 sources) Corticosteroid, beta2-Adrenergic Agonist Start: 04-06-20 End: 11-27-19 take 1 puff(s) by inhalation twice daily fluticasone-salmete rol (ADVAIR, WIXELA) 250-50 mcg/dose inhaler Indications: Mild intermittent asthma with exacerbation (HCC) Inhale 1 Puff as instructed two times a day. 180 Each 1 04/06/2023 11/26/2024 Discontinued (Discontinued by Patient) Start: 04-06-2023 take 1 puff(s) by in halation twice daily fluticasone-salmeterol (ADVAIR, WIXELA) 250-50 mcg/dose inhaler Indications: Mild intermittent asthma with exacerbation (HCC) Inhale 1 Puff as instructed two times a day. 180 Each 1 04/06/2023 Active Start: 04-06-2023 take 1 puff(s) by in halation twice daily fluticasone-salmeterol (ADVAIR, WIXELA) 250-50 mcg/dose inhaler Indications: Mild intermittent asthma with exacerbation Inhale 1 Puff as instructed two times a day. 180 Each 1 04/06/2023 Active Start: 04-06-2023 End: 10-03-2023 take 1 puff(s) by inhalation twice daily fluticasone-salmeterol (ADVAIR, WIXELA) 250-50 mcg/dose inhaler Indications: Mild intermittent asthma with exacerbation Inhale 1 Puff as instructed two times a day. 180 Each 1 04/06/2023 10/03/2023 Active Start: 02-10-2022 End: 04-06-2023 take 1 puff(s) by inhalation twice daily fluticasone-salmeterol (ADVAIR, WIXELA) 250-50 mcg/dose inhaler Indications: Mild intermittent asthma with exacerbation Inhale 1 Puff as instructed twice daily. 180 Each 1 02/10/2022 04/06/2023 Discontinued Start: 02-10-2022 take 1 puff(s) by in halation twice daily fluticasone-salmeterol (ADVAIR, WIXELA) 250-50 mcg/dose inhaler Indications: Mild intermittent asthma with exacerbation Inhale 1 Puff as instructed twice daily. 180 Each 1 02/10/2022 Active Start: 02-10-2022 End: 08-09-2022 take 1 puff(s) by inhalation twice daily fluticasone-salmeterol (ADVAIR, WIXELA) 250-50 mcg/dose inhaler Indications: Mild intermittent asthma with exacerbation Inhale 1 Puff as instructed twice daily. 180 Each 1 02/10/2022 08/09/2022 Active Start: 07-06-2021 End: 02-10-2022 take 1 puff(s) by inhalation twice daily fluticasone-salmeterol (ADVAIR, WIXELA) 250-50 mcg/dose inhaler Indications: Mild intermittent asthma with exacerbation Inhale 1 Puff as instructed twice daily. 3 Each 1 07/06/2021 02/10/2022 Discontinued Start: 07-06-2021 take 1 puff(s) by in halation twice daily fluticasone-salmeterol (ADVAIR, WIXELA) 250-50 mcg/dose inhaler Indications: Mild intermittent asthma with exacerbation Inhale 1 Puff as instructed twice daily. 3 Each 1 07/06/2021 Active Start: 07-06-2021 take 1 puff(s) by in halation twice daily fluticasone-salmeterol (ADVAIR, WIXELA) 250-50 mcg/dose inhaler Indications: Mild intermittent asthma with exacerbation Inhale 1 Puff as instructed twice daily. 3 Each 1 07/06/2021 Active Start: 11-12-2020 End: 07-06-2021 take 1 puff(s) by inhalation twice daily fluticasone-salmeterol (ADVAIR, WIXELA) 250-50 mcg/dose Indications: Mild intermittent asthma with exacerbation Inhale 1 Puff as instructed twice daily. 3 Inhaler 1 11/12/2020 07/06/2021 Discontinued Comment on above: Inhale 1 Puff as ins tructed twice daily. Inhale 1 Puff as ins tructed two times a day. iohexol 300 mg IV injection (OMNIPAQUE 300) (1 source) Start: 05-23-20 End: 05-23-20 iohexol 300 mg IV injection (OMNIPAQUE 300) iv contrast (will be provided with radiology test) (8 sources) Start: 01-01-20 End: 01-02-20 inject 1 dose intravenously once iv contrast (will be provided with radiology test) Indications: Acute right eye pain , Pain of right eye CT Orbits W IVCON No IV access, insert saline lock prior to the sedation, infusion, injection for imaging exam. Discontinue saline lock post exam. If Pt. has a central line or IVAD, may access for administration according to line specific nursing protocol. Once exam is complete flush line and de-access according to line specific nursing protocol in the CT contrast administration guidelines link. 1 each 12/31/2024 01/01/2025 Start: 12-31-2024 End: 01-01-2025 iv contrast (will be provide d with radiology test) Indications: Family history of brain aneurysm , Vascular anomaly (HCC) MRA Brain Inject, intravenously, once for 1 dose. No IV access, insert saline lock prior to the beginning of sedation, infusion, injection of imaging exam. Discontinue saline lock post exam. If Pt. has a central line or IVAD, may access for administration according to line specific nursing protocol. Once exam is complete flush line and de-access according to line specific nursing protocol in the MR contrast administration guidelines link. 1 each 12/31/2024 01/01/2025 Start: 12-31-2024 End: 01-01-2025 iv contrast (will be provide d with radiology test) Indications: Family history of brain aneurysm , Vascular anomaly (HCC) MRA Brain Inject, intravenously, once for 1 dose. No IV access, insert saline lock prior to the beginning of sedation, infusion, injection of imaging exam. Discontinue saline lock post exam. If Pt. has a central line or IVAD, may access for administration according to line specific nursing protocol. Once exam is complete flush line and de-access according to line specific nursing protocol in the MR contrast administration guidelines link. 1 each 12/31/2024 01/01/2025 Active Start: 12-31-2024 End: 01-01-2025 inject 1 dose intravenously once iv contrast (will be provided with radiology test) Indications: Acute right eye pain , Pain of right eye CT Orbits W IVCON No IV access, insert saline lock prior to the sedation, infusion, injection for imaging exam. Discontinue saline lock post exam. If Pt. has a central line or IVAD, may access for administration according to line specific nursing protocol. Once exam is complete flush line and de-access according to line specific nursing protocol in the CT contrast administration guidelines link. 1 each 12/31/2024 01/01/2025 Active Start: 09-09-2022 End: 09-09-2022 inject 1 dose intravenously once, then inject 1 dose intravenously once iv contrast (will be provided with radiology test) Inject 1 Each intravenously one time only for [address] Neck W IVCON No IV access, insert saline lock prior to the sedation, infusion, injection for imaging exam. Discontinue saline lock post exam. If Pt. has a central line or IVAD, may access for administration according to line specific nursing protocol. Once exam is complete flush line and de-access according to line specific nursing protocol in the CT contrast administration guidelines link. 1 Each 0 09/09/2022 09/09/2022 Active Comment on above: Inject 1 Each intrav enously one time only for [address] Neck W IVCON No IV access, insert saline lock prior to the sedation, infusion, injection for imaging exam. Discontinue saline lock post exam. If Pt. has a central line or IVAD, may access for administration according to line specific nursing protocol. Once exam is complete flush line and de-access according to line specific nursing protocol in the CT contrast administration guidelines link. letrozole 2.5 mg oral tablet (18 sources) Aromatase Inhibitor Start: 2 End: 2 take 1 tablet by mouth once daily letrozole (FEMARA) 2.5 mg tablet Take 1 tablet by mouth once daily. 90 tablet 1 09/23/2021 01/04/2022 Discontinued (Discontinued by another Health Care Provider) Start: 08-09-2020 End: 03-08-2021 take 1 tablet by mouth once daily letrozole (FEMARA) 2.5 mg tablet Take 1 tablet by mouth once daily. 90 tablet 1 08/09/2020 03/08/2021 Discontinued Comment on above: Take 1 tablet by keren th once daily. Lidocaine (1 source) Antiarrhythmic, Amide Local Anesthetic Start: 05-23-20 End: 05-23-20 lidocaine 10 mg/mL (1 %) 100 mg injection (XYLOCAINE) lidocaine (PF) 10 mg/mL (1 %) 15 mg, triamcinolone acetonide 60 mg (1 source) Start: 02-11-20 23 End: 02-11-20 23 lidocaine (PF) 10 mg/mL (1 %) 15 mg, triamcinolone acetonide 60 mg ondansetron 4 mg disintegrating oral tablet (20 sources) Serotonin-3 Receptor Antagonist Start: 07-02-19 End: 04-23-20 take 1 tablet by mouth every eight hours as needed for nausea ondansetron orally disintegrating (ZOFRAN ODT) 4 mg disintegrating tablet Indications: S/P left rotator cuff repair Take 1 tablet by mouth every 8 hours as needed for nausea/vomiting. 30 tablet 1 07/02/2023 04/23/2024 Discontinued (Course of therapy completed) Comment on above: Take 1 tablet by [facility] every 8 hours as needed for nausea/vomiting. polyethylene glycol 3350 [id number] mg / potassium chloride 2970 mg / sodium bicarbonate 6740 mg / sodium chloride 5860 mg / sodium sulfate 23654 mg powder for oral solution (1 source) Osmotic Laxative Start: 11-09-19 End: 11-09-19 peg 3350-Electrolytes (GOLYTELY) 236-22.74-6.74 -5.86 gram suspension Indications: Altered bowel habits Take 4,000 mL by mouth one time only for 1 dose. Refer to printed prep instructions from your provider. 4000 mL 0 11/09/2023 11/09/2023 psyllium 3400 mg powder for oral suspension (20 sources) Start: 07-28-19 End: 01-05-20 psyllium (METAMUCIL) 3.4 gram packet Indications: constipation Take 2 Packets by mouth once daily. 30 Packet 6 07/28/2020 01/04/2022 Discontinued Comment on above: Take 2 Packets by mo [facility] once daily. sertraline 100 mg oral tablet (20 sources) Serotonin Reuptake Inhibitor Start: 09-10-19 End: 04-23-20 24 take 1 tablet by mouth once daily sertraline (ZOLOFT) 100 mg tablet Take one tablet by mouth once a day. 90 tablet 1 09/09/2022 04/23/2024 Discontinued Start: 09-12-2021 End: 09-09-2022 sertraline (ZOLOFT) 50 mg ta blet 1/2 a tablet by mouth once a day for 10 days then go to one tablet daily 30 tablet 5 09/12/2021 03/16/2022 Discontinued Start: 12-17-2020 End: 05-06-2021 sertraline (ZOLOFT) 50 mg ta blet 1/2 a tablet by mouth once a day for 10 days then go to one tablet daily 30 tablet 3 12/17/2020 05/06/2021 Discontinued Comment on above: 1/2 a tablet by mout h once a day for 10 days then go to one tablet daily Take one tablet by m outh once a day. traMADol hydrochloride 50 mg oral tablet (7 sources) Opioid Agonist Start: 04-09-20 End: 06-13-20 take 1 tablet by mouth twice daily as needed for pain traMADol (ULTRAM) 50 mg tablet Indications: Acute shoulder pain, unspecified laterality Take 1 tablet by mouth two times a day as needed for pain. 14 tablet 0 04/09/2023 06/13/2023 Discontinued Comment on above: Take 1 tablet by keren th two times a day as needed for pain. 1 ml triamcinolone acetonide 40 mg/ml injection (4 sources) Corticosteroid Start: 08-15-19 End: 08-15-19 triamcinolone acetonide 80 mg injection (KeNALog 40) Start: 08-15-2024 End: 08-15-2024 80 mg, Injection - FOR ORTHO USE ONLY, ONCE, 1 dose, Starting on Sun08/15/24 at 1447, Until Sun08/15/24 at 1447 Start: 02-27-2024 End: 02-27-2024 triamcinolone acetonide 80 m g injection (KeNALog 40) Start: 02-27-2024 End: 02-27-2024 80 mg, Injection - FOR ORTHO USE ONLY, ONCE, 1 dose, Starting on Sun02/27/24 at 1002, Until Sun02/27/24 at 1002 Problems Active Problems Problem Classification Problem Date Documented Da te Episodic/Chronic Asthma (20 sources) Mild persistent asthma; Translations: [Mild persistent asthma, uncomplicated] Onset: 2 12-20-2016 Chronic Cancer of breast (20 sources) 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; Translations: [Malignant neoplasm of unspecified site of right female breast] Onset: 8 10-07-2020 Chronic Cardiac and circulatory congenital anomalies (5 sources) Congenital vascular disorder; Translations: [Congenital malformation of peripheral vascular system, unspecified] Onset: 5 01-31-2025 Chronic Cardiac dysrhythmias (6 sources) Multiple premature ventricular complexes; Translations: [Ventricular premature depolarization] Onset: 4 06-16-2024 Chronic Cardiac dysrhythmias (1 source) Palpitations; Translations: [Palpitations] 03-04-2025 Episodic Cataract (20 sources) Bilateral cataracts; Translations: [Unspecified cataract] Onset: 7 12-20-2016 Chronic Diseases of white blood cells (20 sources) Drug-induced neutropenia; Translations: [Other drug-induced agranulocytosis] Onset: 2 12-12-2016 Chronic Disorders of lipid metabolism (20 sources) Mixed hyperlipidemia; Translations: [Mixed hyperlipidemia] Onset: 6 12-12-2016 Chronic Diverticulosis and diverticulitis (20 sources) Diverticulosis of large intestine; Translations: [Diverticulosis of large intestine without perforation or abscess without bleeding] 12-12-2016 Chronic E Codes: Fall (2 sources) Fall; Translations: [Unspecified fall, initial encounter] Onset: 5 01-21-2025 Episodic Esophageal disorders (20 sources) Gastroesophageal reflux disease without esophagitis; Translations: [Gastro-esophageal reflux disease without esophagitis] Onset: 7 12-12-2016 Chronic Fracture of lower limb (1 source) Stress fracture, left foot, initial encounter for fracture; Translations: [Stress fracture, left foot, initial encounter for fracture] Onset: 5 Episodic Genitourinary symptoms and ill-defined conditions (1 source) Increased frequency of urination; Translations: [Frequency of micturition] Episodic Heart valve disorders (20 sources) Rheumatic mitral valve disease, unspecified; Translations: [Mitral valve disorders] Onset: 4 12-12-2016 Chronic Hemorrhoids (20 sources) Internal hemorrhoids; Translations: [Other hemorrhoids] 12-12-2016 Episodic Menopausal disorders (1 source) Primary ovarian failure; Translations: [Other primary ovarian failure] Chronic Nonmalignant breast conditions (3 sources) Lump in upper outer quadrant of left breast; Translations: [Unspecified lump in the left breast, upper outer quadrant] Episodic Nutritional deficiencies (20 sources) Vitamin D deficiency; Translations: [Vitamin D deficiency, unspecified] Onset: 0 09-15-2019 Chronic Occlusion or stenosis of precerebral arteries (20 sources) Bilateral stenosis of carotid arteries; Translations: [Occlusion and stenosis of bilateral carotid arteries] Onset: 2 07-13-2021 Chronic Osteoarthritis (3 sources) Degenerative joint disease of shoulder region; Translations: [Primary osteoarthritis, unspecified shoulder] Onset: 5 10-26-2023 Chronic Other and ill-defined cerebrovascular disease (12 sources) Intracranial aneurysm; Translations: [Cerebral aneurysm, nonruptured] Onset: 5 02-02-2025 Chronic Other and ill-defined cerebrovascular disease (1 source) Cerebral aneurysm, nonruptured; Translations: [Brain aneurysm (HCC)] Onset: 5 Chronic Other connective tissue disease (19 sources) Pain in left foot; Translations: [Pain in left foot] Onset: 8 12-31-2017 Episodic Other connective tissue disease (1 source) Muscle pain; Translations: [Myalgia, unspecified site] Episodic Other connective tissue disease (1 source) Muscle spasm of cervical muscle of neck; Translations: [Other muscle spasm] Episodic Other connective tissue disease (2 sources) Mass of neck; Translations: [Other specified soft tissue disorders] Episodic Other connective tissue disease (2 sources) Pain in left foot; Translations: [Pain in left foot] Onset: 5 Episodic Other eye disorders (4 sources) Pain in eye; Translations: [Ocular pain, right eye] 12-31-2024 Episodic Other eye disorders (4 sources) Pain of right eye; Translations: [Ocular pain, right eye] 12-31-2024 Episodic Other eye disorders (4 sources) Ocular pain, right eye; Translations: [Acute right eye pain] Onset: 5 Episodic Other gastrointestinal disorders (20 sources) Irritable bowel syndrome; Translations: [Mixed irritable bowel syndrome] Onset: 1 07-06-2021 Chronic Other gastrointestinal disorders (1 source) Mixed irritable bowel syndrome; Translations: [Irritable bowel syndrome with both constipation and diarrhea] Onset: 4 Chronic Other gastrointestinal disorders (1 source) Altered bowel function; Translations: [Change in bowel habit] 11-09-2023 Episodic Other gastrointestinal disorders (1 source) Constipation; Translations: [Constipation, unspecified] 01-02-2025 Episodic Other injuries and conditions due to external causes (1 source) Local infection of wound; Translations: [Other injury of unspecified body region, initial encounter] 01-03-2023 Episodic Other liver diseases (20 sources) Steatosis of liver; Translations: [Fatty (change of) liver, not elsewhere classified] Onset: 6 12-12-2016 Chronic Other liver diseases (1 source) Fatty (change of) liver, not elsewhere classified; Translations: [Fatty liver] Onset: 5 Chronic Other lower respiratory disease (4 sources) Rib pain; Translations: [Pleurodynia] Episodic Other nervous system disorders (20 sources) Complex regional pain syndrome; Translations: [Complex regional pain syndrome I, unspecified] 07-06-2021 Chronic Other nervous system disorders (1 source) Complex regional pain syndrome I, unspecified; Translations: [RSD (reflex sympathetic dystrophy)] Onset: 2 Chronic Other non-epithelial cancer of skin (20 sources) History of malignant neoplasm of skin; Translations: [Personal history of other malignant neoplasm of skin] 07-03-2018 Episodic Other non-traumatic joint disorders (1 source) Stiffness of left shoulder; Translations: [Stiffness of left shoulder, not elsewhere classified] 08-10-2023 Episodic Other nutritional; endocrine; and metabolic disorders (20 sources) Metabolic syndrome X; Translations: [Metabolic syndrome] Onset: 6 12-12-2016 Chronic Other nutritional; endocrine; and metabolic disorders (20 sources) Obesity; Translations: [Other obesity due to excess calories] Onset: 8 12-31-2017 Chronic Other skin disorders (3 sources) Lichen sclerosus et atrophicus; Translations: [Circumscribed scleroderma] Onset: 5 11-09-2023 Chronic Other skin disorders (1 source) Eruption; Translations: [Rash and other nonspecific skin eruption] Episodic Other skin disorders (1 source) Skin lesion; Translations: [Disorder of the skin and subcutaneous tissue, unspecified] 04-23-2024 Episodic Residual codes; unclassified (5 sources) History of operative procedure on shoulder; Translations: [Other specified postprocedural states] 08-10-2023 Episodic Residual codes; unclassified (20 sources) Family history of aneurysm of artery; Translations: [Family history of ischemic heart disease and other diseases of the circulatory system] Onset: 5 12-31-2024 Episodic Residual codes; unclassified (2 sources) Family history of ischemic heart disease and other diseases of the circulatory system; Translations: [Family history of brain aneurysm] Onset: 5 Episodic Screening and history of mental health and substance abuse codes (20 sources) Ex-smoker; Translations: [Personal history of nicotine dependence] Onset: 5 07-03-2018 Episodic Spondylosis; intervertebral disc disorders; other back problems (4 sources) Cervical spondylosis without myelopathy; Translations: [Spondylosis without myelopathy or radiculopathy, cervical region] Chronic Thyroid disorders (20 sources) Acquired hypothyroidism; Translations: [Hypothyroidism, unspecified] Onset: 6 12-12-2016 Chronic Past or Other Problems Problem Classification Problem Date Documented Da te Episodic/Chronic Abdominal pain (20 sources) Right upper quadrant pain; Translations: [Right upper quadrant pain] Onset: 01-22-2007 Resolved: 09-10-2013 01-24-2019 Episodic Administrative/social admission (20 sources) Advance directive discussed with patient; Translations: [Other specified counseling] Onset: 01-04-2022 Episodic Cancer of breast (2 sources) History of malignant neoplasm of breast; Translations: [Personal history of malignant neoplasm of breast] Onset: 11-12-2024 11-09-2023 Episodic Conditions associated with dizziness or vertigo (20 sources) Dizziness; Translations: [Dizziness and giddiness] Onset: 11-11-2021 Episodic Diabetes mellitus without complication (20 sources) High hemoglobin A1c level; Translations: [Other abnormal glucose] Onset: 09-10-2017 09-10-2017 Episodic E Codes: Fall (1 source) Fall 01-21-2025 Immunizations and screening for infectious disease (2 sources) Suspected disease caused by 2019-nCoV; Translations: [Suspected COVID-19 virus infection] Onset: 10-29-2024 Episodic Nonspecific chest pain (20 sources) Chest wall pain; Translations: [Other chest pain] Onset: 10-05-2017 12-31-2017 Episodic Other aftercare (20 sources) Patient encounter status; Translations: [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] Onset: 01-04-2022 Episodic Other aftercare (1 source) Other long-term (current) drug therapy; Translations: [Medication management] Onset: 01-04-2022 Episodic Other and unspecified benign neoplasm (20 sources) History of polyp of colon; Translations: [Personal history of colonic polyps] Onset: 01-06-2019 12-04-2019 Episodic Other connective tissue disease (20 sources) Plantar fasciitis; Translations: [Plantar fascial fibromatosis] Onset: 11-24-2013 12-12-2016 Episodic Other connective tissue disease (20 sources) Cyst ; Translations: [Ganglion, multiple sites] Onset: 06-23-2014 12-12-2016 Episodic Other connective tissue disease (20 sources) Triggering of digit; Translations: [Trigger finger, right ring finger] Onset: 06-23-2014 12-12-2016 Episodic Other connective tissue disease (20 sources) Partial thickness rotator cuff tear; Translations: [Incomplete rotator cuff tear or rupture of left shoulder, not specified as traumatic] Onset: 04-16-2023 04-16-2023 Episodic Other gastrointestinal disorders (1 source) Constipation, unspecified; Translations: [Constipation, unspecified constipation type] Onset: 11-12-2024 Episodic Other lower respiratory disease (2 sources) Cough; Translations: [Cough] Onset: 11-21-2024 12-22-2020 Episodic Other non-traumatic joint disorders (20 sources) Pain in left shoulder; Translations: [Pain in joint, shoulder region] Onset: 02-20-2023 02-10-2023 Episodic Other non-traumatic joint disorders (20 sources) Pain in wrist; Translations: [Pain in unspecified wrist] Onset: 11-24-2013 Resolved: 06-08-2014 06-08-2014 Episodic Other nutritional; endocrine; and metabolic disorders (20 sources) Obesity caused by energy imbalance; Translations: [Other obesity due to excess calories] Onset: 12-31-2017 Resolved: 10-17-2023 12-31-2017 Chronic Other nutritional; endocrine; and metabolic disorders (20 sources) Overweight; Translations: [Overweight] Onset: 10-17-2023 10-17-2023 Episodic Other screening for suspected conditions (not mental disorders or infectious disease) (20 sources) Breast neoplasm screening status; Translations: [Encounter for other screening for malignant neoplasm of breast] Onset: 10-31-2023 Episodic Other skin disorders (20 sources) Sebaceous cyst of skin; Translations: [Sebaceous cyst] Onset: 01-20-2014 12-12-2016 Episodic Other skin disorders (20 sources) Mass of lower limb; Translations: [Localized swelling, mass and lump, left lower limb] Onset: 07-03-2018 12-04-2019 Episodic Other upper respiratory infections (3 sources) Acute upper respiratory infection; Translations: [Acute upper respiratory infection, unspecified] Onset: 11-26-2024 11-26-2024 Episodic Residual codes; unclassified (20 sources) Active living will ; Translations: [Other specified health status] Onset: 01-04-2022 Episodic Residual codes; unclassified (1 source) Family history of malignant neoplasm of breast; Translations: [Family history of malignant neoplasm of breast] Onset: 11-12-2024 Episodic Skin and subcutaneous tissue infections (20 sources) Cellulitis; Translations: [Cellulitis, unspecified] Onset: 06-21-2011 Resolved: 06-08-2014 06-08-2014 Episodic Spondylosis; intervertebral disc disorders; other back problems (20 sources) Spinal stenosis other than cervical; Translations: [Spinal stenosis, site unspecified] Onset: 03-02-2006 12-12-2016 Episodic Sprains and strains (20 sources) Glenoid labrum tear; Translations: [Superior glenoid labrum lesion of left shoulder, initial encounter] Onset: 04-16-2023 04-16-2023 Episodic Unclassified (2 sources) Patient encounter status 01-01-2025 Results Test Name Value Interpretation Reference Range [facility] Office Visit (NSEAP) MONTSERRAT AGUAYO ([id number]) 1950 F Date Time Provider Department 02/24/25 10:00 AM JESSICA ONEIL NSEAP During your visit today, we recorded the following information about you: Pulse Blood pressure Weight Height 67/minute 130/71 93.4 kg 1.702 m Jessica Oneil, [email or web address].[email or web address] RECRUITER 02/26/2025 2:39 PM Signed Cerebrovascular Center: [facility] Neuroradiology New Visit Montserrat Aguayo CC#: [id number] Date of Service: 02/24/2025 Primary Care Provider: Liam Wilkins MD Collaborating Physician: Marvin Ivory MD Subjective NEUS REASON FOR VISIT RFV Montserrat Aguayo is a 75 yof with PMH of vertigo, HLD, aortic valve stenosis, asthma, diverticulosis, GERD, fatty liver, IBS, spinal stenosis, b/l carotid stenosis, PACs, and recent finding of possible aneurysm found on recent MRA. Montserrat reports that approximately two weeks prior to the MRA, she experienced significant pain in her right eye, described as a sensation of pressure with each blink. She consulted her eye doctor, who found no foreign bodies in the eye, and subsequently saw Dr. Wilkins, who ordered the MRA to investigate further. Although the pain has improved, she continues to feel as though there is something in her eye. She notes that the discomfort is exacerbated by hot water on her face during showers, as advised by her eye doctor. Montserrat also reports occasional visual disturbances described as crystals or wavy patterns in her vision, which her eye doctor attributed to stress. These episodes are infrequent and brief. Montserrat does not endorse any headaches, vision loss, diplopia, numbness, or weakness. She does report a sensation in her feet described as feeling like an extra skin, which has been present since undergoing chemotherapy 12 years ago. Montserrat recalls a past episode of dizziness when turning over or lying down, for which she sought emergency care. She was informed it might be due to dehydration or an issue with crystals in the head. She attended physical therapy and learned exercises to manage the dizziness, which has since improved. She currently exercises four times a week at the [facility]. 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: Right Family history Subarachnoid hemorrhage/aneurysm: Mother had a fatal SAH from aneurysm (age of 74) Stroke: denies Vascular malformations: Denies Other neurologic diseases: Denies + Cancer in the family REVIEW OF SYSTEMS Head: (-) headaches Eyes: (+) foreign body sensation in eyes, (+) visual disturbances, (-) vision loss, (-) diplopia Neurological: (+) bilateral foot paresthesia, (-) numbness, (-) weakness, (-) dizziness, (-) seizures ACTIVE PROBLEM LIST Acquired Hypothyroidism Mixed Hyperlipidemia Spinal stenosis, unspecified region other than cervical Rsd (Reflex Sympathetic Dystrophy) Mitral valve disorders(424.0) Neck Pain Neutropenia, drug-induced (HCC) Mild Persistent Asthma (Hcc) Plantar Fasciitis Sebaceous Cyst Ganglion and Cyst of Synovium, Tendon and Bursa Trigger Ring Finger of Right Hand Fatty Liver Metabolic Syndrome Gastroesophageal Reflux Disease Without Esophagitis Diverticulosis of Large Intestine Internal Hemorrhoids Without Mention of Complication History of Detached Retina Repair Cataracts, Bilateral Elevated Hemoglobin A1c Carcinoma of Female Breast, Right (Hcc) Right-Sided Chest Wall Pain Mass of Left Lower Leg Ex-Smoker History of Skin Cancer History of Colonic Polyps Vitamin D Deficiency Irritable Bowel Syndrome With Both Constipation and Diarrhea Bilateral Carotid Artery Stenosis Living Will in Place Advance Directive Discussed With Patient Medication Management Neural Foraminal Stenosis of Cervical Spine Acute Pain of Left Shoulder Tear of Left Glenoid Labrum Incomplete Tear of Left Rotator Cuff Labral Tear of Long Head of Left Biceps Tendon Over Weight Colon Cancer Screening Nonrheumatic Aortic Valve Stenosis Vertigo Skin Cancer Screening Family History of Brain Aneurysm Brain Aneurysm (Hcc) PAST MEDICAL HISTORY Diagnosis Date Acquired hypothyroidism 11/29/2005 Bilateral carotid artery stenosis 07/13/2021 US: 06/2021: Stephen 20-40% Brain aneurysm (HCC) 02/02/2025 MRI: 01/2025, consult to neurosurgery placed. Breast cancer (HCC) 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, right (HCC) 10/05/2017 Cataracts, bilateral 12/20/2016 Some relation to steroids with her asthma. Cervicalgia 01/27/2011 Class 1 obesity due to excess calories without serious comorbidity with body mass index (BMI) of 33.0 to 33.9 in adult 12/31/2017 Dive (more content not included)... Normal [facility] 02-13-2025 [facility] Telephone (NIQ) MONTSERRAT AGUAYO ([id number]) 1950 F Date Time Provider Department 02/13/25 NEUROLOGY PROVIDER NIQ During your visit today, we recorded the following information about you: Will Pillai 02/13/2025 2:46 PM Signed ENDOVASCULAR INTAKE Patient name: Montserrat Aguayo When was triage completed? February 13 What diagnosis are you looking to be seen for within our center? (ex: aneurysm, angioma, arteriovenous malformation, brain bleed or brain hemorrhage, cavernous malformation, carotid stenosis, fistula, [place], Vein of Fredy, IIH or pseudotumor, etc.) Brain Aneurysm Is there a specific provider who is requesting you see our center? (referring provider) Liam Wilkins MD Has your referring provider recommended a specific provider in our department? No Is this a second opinion? Have you been recommended for surgery or procedure for this condition? Not a second opinion. Not recommended for surgery/procedure. If yes, have you scheduled this procedure at another facility? If yes, when is the procedure scheduled? Where have you had any imaging for this diagnosis in the past year? These include images such as ultrasounds, MRIs, CTs, or angiograms of the head, brain, neck, carotids, or spine. [facility] Images in Chart Have you had any surgeries or procedures for this condition? No If yes, where was it done and when? Who performed the surgery or procedure? Does any of the following pertain to you? Family history of brain aneurysm? Yes, mother passed from a brain aneurysm. Polycystic kidney disease or other genetic kidney disease? Not applicable if chronic kidney disease. No Connective tissue disease such as fibromuscular dysplasia or Abhay-Danlos Syndrome? No Do you prefer in-person or virtual appointment? Out of state residents must be in [place] at the time of their virtual visit. In Person or Virtual Specific day of the week or time of day? Any Time Do you prefer to be notified of your appointment by phone or Brand.nett message? [phone] Phone Call Thank you for speaking with me today. Your information will now be forwarded to our [facility] practice provider team to review and provide scheduling recommendations. Please allow 3 business days to hear back from us. If you do not, feel free to call back [phone] for an update. Will Pillai 02/13/2025 2:46 PM Signed OSH imaging/records received from [facility]: February 13, 2025 - Imaging AND Records available in Chart Allergies As of Date: 02/13/2025 Noted Allergy Reaction TYPHOID VACCINE 05/12/2005 5 - Intolerance ADHESIVE TAPE (ROSINS) 04/17/2011 14 - Other: See Comments Comments: after 2 days area becomes red and itches CATS 05/12/2005 5 - Intolerance DICLOFENAC 01/04/2016 14 - Other: See Comments Comments: elevated liver enz DOGS 05/12/2005 5 - Intolerance DUST 05/12/2005 5 - Intolerance MELOXICAM 01/10/2016 14 - Other: See Comments Comments: Swollen eyelids MOLD 05/12/2005 5 - Intolerance TEGRETOL (CARBAMAZEPINE ANALOGUES)11/24/2008 5 - Intolerance Comments: blood problem Date Reviewed: 01/31/2025 Reviewed by: Jojo Mueller, assistant manager retail - Fully Assessed Reason for Visit: Future Appointment [256] Cmt: New [place] Any Prescriptions as of 02/27/2025 - naproxen (NAPROSYN) 500 mg tablet Take 1 tablet by mouth two times a day as needed (for pain/inflammation). Take with food. - metoprolol succinate ER (TOPROL XL) 25 mg 24 hr tablet Take 1 tablet by mouth once daily. - pioglitazone (ACTOS) 30 mg tablet Take 1 tablet by mouth once daily. - atorvastatin (LIPITOR) 80 mg tablet Take 1 tablet by mouth once daily. - VENTOLIN HFA 90 mcg/actuation inhaler Inhale 2 puffs as instructed every 4 hours as needed. - clobetasol (TEMOVATE) 0.05 % ointment Apply 1 application to affected area two times a day. - levothyroxine (SYNTHROID) 100 mcg tablet Take 1 tablet by mouth daily before breakfast. - amitriptyline (ELAVIL) 25 mg tablet Take 2 tablets by mouth daily at bedtime. - acetaminophen (TYLENOL) 500 mg tablet Take 1,000 mg by mouth at bedtime as needed. - COMPOUNDED PRESCRIPTION NEBULIZER and supplies FOR HOME USE. DX: J45.30, J45.90. Length of need is life. This is a medically necessary devise for management of patients lung disease. Current machine recently stopped working. While trying to use it started to smoke and stopped. Problem List As Of Date 02/13/2025 Noted Resolved Acquired hypothyroidism [E03.9] 11/29/2005 Mixed hyperlipidemia [E78.2] 11/29/2005 Spinal stenosis, unspecified region other than *03/02/2006 RSD (reflex sympathetic dystrophy) [G90.50] Mitral valve disorders(424.0) [I05.9] Abdominal pain, unspecified site [R10.9] 01/22/2007 09/10/2013 Neck pain [M54.2] 01/27/2011 Cellulitis [L03.90] 06/21/2011 06/08/2014 Neutropenia, drug-induced (HCC) [D70. (more content not included)... Normal [facility] CNPNon 02-10-2025 CNPN Telephone ([facility]) MONTSERRAT AGUAYO ([id number]) 1950 F Date Time Provider Department 02/10/25 MARVIN IVORY [facility] During your visit today, we recorded the following information about you: Tiny Mchugh 02/10/2025 8:15 AM Signed Patient called wanting to schedule an appointment to see Dr Ivory, she has an aneurism. I asked Dr Ivory to review the chart, he states: No need to schedule she can be seen at the [facility] at [facility] or even in [place] we have a neurology clinic that can see her. I called Montserrat to let her know they should be contacting her to schedule. Chapis Dover, RN 02/13/2025 2:14 PM Signed Pt reports her MRI brain shows she has an aneurysm and she was instructed someone would call her to schedule with neuro. See message below. This nurse spoke with naa uriarte pss who attempted to schedule but was denied access stating only the [facility] can decide where this patient can be seen and gave me the number for pt to call and schedule: [phone]. Spoke with pt and gave her this information. Pt agreeable to call the number given. Allergies As of Date: 02/10/2025 Noted Allergy Reaction TYPHOID VACCINE 05/12/2005 5 - Intolerance ADHESIVE TAPE (ROSINS) 04/17/2011 14 - Other: See Comments Comments: after 2 days area becomes red and itches CATS 05/12/2005 5 - Intolerance DICLOFENAC 01/04/2016 14 - Other: See Comments Comments: elevated liver enz DOGS 05/12/2005 5 - Intolerance DUST 05/12/2005 5 - Intolerance MELOXICAM 01/10/2016 14 - Other: See Comments Comments: Swollen eyelids MOLD 05/12/2005 5 - Intolerance TEGRETOL (CARBAMAZEPINE ANALOGUES)11/24/2008 5 - Intolerance Comments: blood problem Date Reviewed: 01/31/2025 Reviewed by: Jojo Mueller, assistant manager retail - Fully Assessed Prescriptions as of 02/13/2025 - naproxen (NAPROSYN) 500 mg tablet Take 1 tablet by mouth two times a day as needed (for pain/inflammation). Take with food. - metoprolol succinate ER (TOPROL XL) 25 mg 24 hr tablet Take 1 tablet by mouth once daily. - erythromycin (ROMYCIN) 5 mg/gram (0.5 %) ophthalmic ointment Use 1 application in both eyes two times a day. - pioglitazone (ACTOS) 30 mg tablet Take 1 tablet by mouth once daily. - atorvastatin (LIPITOR) 80 mg tablet Take 1 tablet by mouth once daily. - VENTOLIN HFA 90 mcg/actuation inhaler Inhale 2 puffs as instructed every 4 hours as needed. - clobetasol (TEMOVATE) 0.05 % ointment Apply 1 application to affected area two times a day. - levothyroxine (SYNTHROID) 100 mcg tablet Take 1 tablet by mouth daily before breakfast. - amitriptyline (ELAVIL) 25 mg tablet Take 2 tablets by mouth daily at bedtime. - acetaminophen (TYLENOL) 500 mg tablet Take 1,000 mg by mouth at bedtime as needed. - COMPOUNDED PRESCRIPTION NEBULIZER and supplies FOR HOME USE. DX: J45.30, J45.90. Length of need is life. This is a medically necessary devise for management of patients lung disease. Current machine recently stopped working. While trying to use it started to smoke and stopped. Problem List As Of Date 02/10/2025 Noted Resolved Acquired hypothyroidism [E03.9] 11/29/2005 Mixed hyperlipidemia [E78.2] 11/29/2005 Spinal stenosis, unspecified region other than *03/02/2006 RSD (reflex sympathetic dystrophy) [G90.50] Mitral valve disorders(424.0) [I05.9] Abdominal pain, unspecified site [R10.9] 01/22/2007 09/10/2013 Neck pain [M54.2] 01/27/2011 Cellulitis [L03.90] 06/21/2011 06/08/2014 Neutropenia, drug-induced (HCC) [D70.2] 08/11/2011 Mild persistent asthma [J45.30] 09/07/2011 Plantar fasciitis [M72.2] 11/24/2013 Wrist pain [M25.539] 11/24/2013 06/08/2014 Sebaceous cyst [L72.3] 01/20/2014 Ganglion and cyst of synovium, tendon and bursa*06/23/2014 Trigger ring finger of right hand [M65.341] 06/23/2014 Fatty liver [K76.0] 04/19/2016 Metabolic syndrome [E88.810] 04/19/2016 Gastroesophageal reflux disease without esophag*08/21/2016 Diverticulosis of large intestine [K57.30] Internal hemorrhoids without mention of complic* History of detached retina repair [Z98.890, Z86*12/20/2016 Cataracts, bilateral [H26.9] 12/20/2016 Well adult exam [Z00.00] 12/20/2016 01/02/2025 Elevated hemoglobin A1c [R73.09] 09/10/2017 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, right (HCC) [C50.91*10/05/2017 Right-sided chest wall pain [R07.89] 10/05/2017 Class 1 obesity due to excess calories without *12/31/2017 10/17/2023 Mass of left lower leg [R22.42] 07/03/2018 Ex-smoker [Z87.891] History of skin cancer [Z85.828] History of colonic polyps [Z86.0100] 01/06/2019 Vitamin D deficiency [E55.9] 09/15/2019 Irritable bowel syndrome with both constipation*07/28/2020 Bilateral carotid artery stenosis [I65.23] 07/13/[address] [Z78.9] 01/04/2022 Advance directive discussed with patient [Z71.8*01/04/2022 Medication managem (more content not included)... [facility] 02-02-2025 CNPN Telephone ([facility]) OLIVIERMONTSERRAT Rod ([id number]) 1950 F Date Time Provider Department [facility]/02[facility] your visit today, we recorded the following information about you: Eliz Camarena LPN 02/02/2025 2:02 PM Signed Patient calling she saw her results of the MRA Brain and shows an Aneurysm. Patient is asking what is she to do next? Please advise Liam Wilkins MD 02/02/2025 8:13 PM Signed Let patient know I will want her to see Neurosurgery for their input to if treatment is needed or just monitoring. Order placed. Katia Bhatt MA 02/03/2025 8:21 AM Signed Pt notified. She will call back to schedule appt with Neurosurgeon. ZEINAB Correa Amanda, RN 02/09/2025 9:45 AM Signed Pt put through to scheduling to set up an appointment with Neurosurgery. Niesha Mujica RN Allergies As of Date: 02/02/2025 Noted Allergy Reaction TYPHOID VACCINE 05/12/2005 5 - Intolerance ADHESIVE TAPE (ROSINS) 04/17/2011 14 - Other: See Comments Comments: after 2 days area becomes red and itches CATS 05/12/2005 5 - Intolerance DICLOFENAC 01/04/2016 14 - Other: See Comments Comments: elevated liver enz DOGS 05/12/2005 5 - Intolerance DUST 05/12/2005 5 - Intolerance MELOXICAM 01/10/2016 14 - Other: See Comments Comments: Swollen eyelids MOLD 05/12/2005 5 - Intolerance TEGRETOL (CARBAMAZEPINE ANALOGUES)11/24/2008 5 - Intolerance Comments: blood problem Date Reviewed: 01/31/2025 Reviewed by: Jojo Mueller, assistant manager retail - Fully Assessed Reason for Visit: MRA brain results [Other] Primary Visit Diagnosis:Brain aneurysm (HCC) [I67.1] Order(s):CONSULT TO NEUROSURGERY [19990701] Order #: [id number]: 1 FUTURE Prescriptions as of 02/09/2025 - naproxen (NAPROSYN) 500 mg tablet Take 1 tablet by mouth two times a day as needed (for pain/inflammation). Take with food. - metoprolol succinate ER (TOPROL XL) 25 mg 24 hr tablet Take 1 tablet by mouth once daily. - erythromycin (ROMYCIN) 5 mg/gram (0.5 %) ophthalmic ointment Use 1 application in both eyes two times a day. - pioglitazone (ACTOS) 30 mg tablet Take 1 tablet by mouth once daily. - atorvastatin (LIPITOR) 80 mg tablet Take 1 tablet by mouth once daily. - VENTOLIN HFA 90 mcg/actuation inhaler Inhale 2 puffs as instructed every 4 hours as needed. - clobetasol (TEMOVATE) 0.05 % ointment Apply 1 application to affected area two times a day. - levothyroxine (SYNTHROID) 100 mcg tablet Take 1 tablet by mouth daily before breakfast. - amitriptyline (ELAVIL) 25 mg tablet Take 2 tablets by mouth daily at bedtime. - acetaminophen (TYLENOL) 500 mg tablet Take 1,000 mg by mouth at bedtime as needed. - COMPOUNDED PRESCRIPTION NEBULIZER and supplies FOR HOME USE. DX: J45.30, J45.90. Length of need is life. This is a medically necessary devise for management of patients lung disease. Current machine recently stopped working. While trying to use it started to smoke and stopped. Problem List As Of Date 02/02/2025 Noted Resolved Acquired hypothyroidism [E03.9] 11/29/2005 Mixed hyperlipidemia [E78.2] 11/29/2005 Spinal stenosis, unspecified region other than *03/02/2006 RSD (reflex sympathetic dystrophy) [G90.50] Mitral valve disorders(424.0) [I05.9] Abdominal pain, unspecified site [R10.9] 01/22/2007 09/10/2013 Neck pain [M54.2] 01/27/2011 Cellulitis [L03.90] 06/21/2011 06/08/2014 Neutropenia, drug-induced (HCC) [D70.2] 08/11/2011 Mild persistent asthma [J45.30] 09/07/2011 Plantar fasciitis [M72.2] 11/24/2013 Wrist pain [M25.539] 11/24/2013 06/08/2014 Sebaceous cyst [L72.3] 01/20/2014 Ganglion and cyst of synovium, tendon and bursa*06/23/2014 Trigger ring finger of right hand [M65.341] 06/23/2014 Fatty liver [K76.0] 04/19/2016 Metabolic syndrome [E88.810] 04/19/2016 Gastroesophageal reflux disease without esophag*08/21/2016 Diverticulosis of large intestine [K57.30] Internal hemorrhoids without mention of complic* History of detached retina repair [Z98.890, Z86*12/20/2016 Cataracts, bilateral [H26.9] 12/20/2016 Well adult exam [Z00.00] 12/20/2016 01/02/2025 Elevated hemoglobin A1c [R73.09] 09/10/2017 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, right (HCC) [C50.91*10/05/2017 Right-sided chest wall pain [R07.89] 10/05/2017 Class 1 obesity due to excess calories without *12/31/2017 10/17/2023 Mass of left lower leg [R22.42] 07/03/2018 Ex-smoker [Z87.891] History of skin cancer [Z85.828] History of colonic polyps [Z86.0100] 01/06/2019 Vitamin D deficiency [E55.9] 09/15/2019 Irritable bowel syndrome with both constipation*07/28/2020 Bilateral carotid artery stenosis [I65.23] 07/13/[address] [Z78.9] 01/04/2022 Advance directive discussed with patient [Z71.8*01/04/2022 Medication management [Z79.899] 01/04/2022 Neural foraminal stenosis of cervical spine [M4*03/21/2022 Acute pain of left (more content not included)... Normal [facility] MRA BRAIN WO/W IVCONon 01-31 MRA BRAIN WO/W IVCON * * *Final Report* * * DATE OF EXAM: Jan 31 2025 11:29AM [facility] 0273 - MRA BRAIN WO/W IVCON / PROCEDURE REASON: multiple diagnoses * * * * Physician Interpretation * * * * EXAMINATION: MRA BRAIN WO/W IVCON CLINICAL HISTORY: Left P-comm Aneurysm versus infundibulum. TECHNIQUE: Intracranial 3D [id number]-mo-glzwlw MRA with post-processing performed at the modality and 2D multiplanar and 3D maximum intensity projections were created, reviewed and archived. Contrast enhanced intracranial MRA. MR Contrast: Elucirem MR Contrast Volume (ml): 9 MR Contrast Route of Administration: IV MQ: MRAB_4 COMPARISON: 07/15/2021 MRI brain. CTA 08/30/2021 RESULT: INTRACRANIAL MRA: 1-2 millimeter laterally directed outpouching from the right cavernous carotid segment on series 2 image 78 is unchanged suggesting small extradural saccular aneurysm. Remaining intracranial ICAs,, proximal MCA segments bilaterally, as well as proximal JONNY segments bilaterally are patent and without significant focal narrowing or other aneurysm. 1-2 millimeter infundibulum at the origin of the left posterior communicating artery. Intracranial vertebral arteries, basilar artery, and proximal [employer] segments bilaterally are patent and without significant focal narrowing or aneurysm. IMPRESSION: 1-2 millimeter saccular outpouching projecting laterally from the right cavernous ICA segment consistent with small extradural saccular aneurysm, unchanged. Infundibulum at the origin of the left posterior communicating arteries unchanged. No large arterial vessel occlusion, significant focal narrowing, or other aneurysm on intracranial MRA. Photographs Curator: DON Transcribe Date/Time: Jan 31 2025 1:05P Dictated by : CHU KEENE MD This examination was interpreted and the report reviewed and electronically signed by: CHU KEENE MD on Jan 31 2025 1:10PM EST [id number] Normal [facility] MRA Head vessels WO and W co ntrast Arian 01-31-2025 IMPRESSION: 1-2 millimeter saccular outpouching projecting laterally from the right cavernous ICA segment consistent with small extradural saccular aneurysm, unchanged. Infundibulum at the origin of the left posterior communicating arteries unchanged. No large arterial vessel occlusion, significant focal narrowing, or other aneurysm on intracranial MRA. Photographs Curator: PSCB Transcribe Date/Time: Jan 31 2025 1:05P Dictated by : CHU KEENE MD This examination was interpreted and the report reviewed and electronically signed by: CHU KEENE MD on Jan 31 2025 1:10PM EST [facility] * * *Final Report* * * DATE OF EXAM: Jan 31 2025 11:29AM [facility] 0273 - MRA BRAIN WO/W IVCON / PROCEDURE REASON: multiple diagnoses * * * * Physician Interpretation * * * * EXAMINATION: MRA BRAIN WO/W IVCON CLINICAL HISTORY: Left P-comm Aneurysm versus infundibulum. TECHNIQUE: Intracranial 3D mrbg-wn-xlzbmf MRA with post-processing performed at the modality and 2D multiplanar and 3D maximum intensity projections were created, reviewed and archived. Contrast enhanced intracranial MRA. MR Contrast: Elucirem MR Contrast Volume (ml): 9 MR Contrast Route of Administration: IV MQ: MRAB_4 COMPARISON: 07/15/2021 MRI brain. CTA 08/30/2021 RESULT: INTRACRANIAL MRA: 1-2 millimeter laterally directed outpouching from the right cavernous carotid segment on series 2 image 78 is unchanged suggesting small extradural saccular aneurysm. Remaining intracranial ICAs,, proximal MCA segments bilaterally, as well as proximal JONNY segments bilaterally are patent and without significant focal narrowing or other aneurysm. 1-2 millimeter infundibulum at the origin of the left posterior communicating artery. Intracranial vertebral arteries, basilar artery, and proximal FAMILY [employer] SERV[employer]IST segments bilaterally are patent and without significant focal narrowing or aneurysm. [facility] Provider, [facility] Iman Kraus - 01/31/2025 * * *Final Report* * * DATE OF EXAM: Jan 31 2025 11:29AM [facility] 0273 - MRA BRAIN WO/W IVCON / PROCEDURE REASON: multiple diagnoses * * * * Physician Interpretation * * * * EXAMINATION: MRA BRAIN WO/W IVCON CLINICAL HISTORY: Left P-comm Aneurysm versus infundibulum. TECHNIQUE: Intracranial 3D fhfx-id-ymuwde MRA with post-processing performed at the modality and 2D multiplanar and 3D maximum intensity projections were created, reviewed and archived. Contrast enhanced intracranial MRA. MR Contrast: Elucirem MR Contrast Volume (ml): 9 MR Contrast Route of Administration: IV MQ: MRAB_4 COMPARISON: 07/15/2021 MRI brain. CTA 08/30/2021 RESULT: INTRACRANIAL MRA: 1-2 millimeter laterally directed outpouching from the right cavernous carotid segment on series 2 image 78 is unchanged suggesting small extradural saccular aneurysm. Remaining intracranial ICAs,, proximal MCA segments bilaterally, as well as proximal JONNY segments bilaterally are patent and without significant focal narrowing or other aneurysm. 1-2 millimeter infundibulum at the origin of the left posterior communicating artery. Intracranial vertebral arteries, basilar artery, and proximal [employer] segments bilaterally are patent and without significant focal narrowing or aneurysm. IMPRESSION IMPRESSION: 1-2 millimeter saccular outpouching projecting laterally from the right cavernous ICA segment consistent with small extradural saccular aneurysm, unchanged. Infundibulum at the origin of the left posterior communicating arteries unchanged. No large arterial vessel occlusion, significant focal narrowing, or other aneurysm on intracranial MRA. Photographs Curator: PSCB Transcribe Date/Time: Jan 31 2025 1:05P Dictated by : CHU KEENE MD This examination was interpreted and the report reviewed and electronically signed by: CHU KEENE MD on Jan 31 2025 1:10PM EST [facility] Radiology Study observation (narrative) [facility] MRA Head vessels WO and W co ntrast IVOrdered By: [facility] Provider on 01-31-2025 [facility] CNOVon 01-21-2025 CNOV Office Visit (FAMPWS ) MONTSERRAT AGUAYO ([id number]) 1950 F Date Time Provider Department 01/21/25 11:40 AM OBDULIA ROWLEY During your visit today, we recorded the following information about you: Temperature Pulse Respiration Blood pressure 97 degrees 81/minute 18/minute 110/78 Weight 93.4 kg Obdulia Rowley PA-C 01/21/2025 2:05 PM Signed Chief Complaint Patient presents with: left foot pain: X 2 weeks HPI Montserrat Aguayo is a 75 year old female who presents here today for Above Complaints.. Left Foot Pain: - Left foot pain x2 weeks following a fall. - Incident occurred when stepping on a walnut under a leaf, causing the right foot to roll and resulting in a fall onto the left side. - Pain localized to the arch and top of the foot. - Severe pain last night, causing difficulty sleeping. - No noticeable bruising on the foot. - Denies decreased sensation in the toes. - History of neuropathy following chemotherapy and radiation. - Previous fall 8 years ago also involved stepping on a walnut, resulting in a foot fracture and requiring a full leg boot. Weight Gain: - Weight increased from 190 lbs last year to 206 lbs currently. - Denies changes in diet or alcohol consumption. - Unable to exercise due to foot pain; previously walked a mile a day and worked out daily. - Recent labs were normal. Past medical history, appointments, medications, allergies reviewed. Previous Medical History PAST MEDICAL HISTORY Diagnosis Date Acquired hypothyroidism 11/29/2005 Bilateral carotid artery stenosis 07/13/2021 US: 06/2021: Stephen 20-40% Breast cancer (HCC) 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, right (HCC) 10/05/2017 Cataracts, bilateral 12/20/2016 Some relation to steroids with her asthma. Cervicalgia 01/27/2011 Class 1 obesity due to excess calories without serious comorbidity with body mass index (BMI) of 33.0 to 33.9 in adult 12/31/2017 Diverticulosis of large intestine Elevated hemoglobin A1c 09/10/2017 Ex-smoker Family history of brain aneurysm 12/31/2024 Mother who . 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 Incomplete tear of left rotator cuff 04/16/2023 Internal hemorrhoids without mention of complication Irritable bowel syndrome with both constipation and diarrhea 07/28/2020 Labral tear of long head of left biceps tendon 04/16/2023 Lichen sclerosus Living will in place 01/04/2022 DPA: Deshawn () Mass of left lower leg 07/03/2018 Benign w/u Metabolic syndrome 04/19/2016 Mild persistent asthma (HCC) 09/07/2011 Mitral valve disorders(424.0) Mixed hyperlipidemia 11/29/2005 Neural foraminal stenosis of cervical spine 03/21/2022 Mod-sever on the left Neutropenia, drug-induced 08/11/2011 Nonrheumatic aortic valve stenosis 06/13/2024 Seeing Cardio: Dr. Colon Obesity Osteopenia 12/22/2024 Right Hip Over weight 10/17/2023 Plantar fasciitis 11/24/2013 Primary insomnia 07/06/2021 Right-sided chest wall pain 10/05/2017 Secondary to breast cancer radiation. RSD (reflex sympathetic dystrophy) Sebaceous cyst 01/20/2014 Spinal stenosis, unspecified region other than cervical 03/02/2006 Tear of left glenoid labrum 04/16/2023 Trigger ring finger of right hand 06/23/2014 Vitamin D deficiency 09/15/2019 Previous Surgical History PAST SURGICAL HISTORY Procedure Laterality Date ADENOIDECTOMY PRIMARY Adenoidectomy BREAST BIOPSY CORE 04/11/2011 right breast 2:00, 4:00 and 10:00 BREAST BIOPSY INCISIONAL 14 years ago right and left breast- benign BREAST RECONSTRUC W FREE FLAP 12/13/2012 bilateral breast BREAST RECONSTRUC W TISS EXPANDR 05/25/2011 right breast with elevation of the serratus flap CARDIAC CATH 03/20/2017 normal, by Dr. Colvin COLONOSCOPY 01/03/2024 repeat 3 years COLONOSCOPY FLX DX W/COLLJ SPEC WHEN PFRMD 04/08/2007 COLONOSCOPY FLX DX W/COLLJ SPEC WHEN PFRMD N/A 09/06/2016 MAC COLONOSCOPY FLX DX W/COLLJ SPEC WHEN PFRMD 02/10/2019 Colonoscopy INSJ TUNNELED CTR VAD W/SUBQ PORT AGE 5 YR/> 07/06/2011 left IJ MASTECTOMY, SIMPLE, COMPLETE 05/25/2011 right breast skin-sparing with SLND/level 1 LND MASTECTOMY, SIMPLE, COMPLETE 12/13/2012 prophylactic left breast PAST SURGICAL HISTORY OF squamous cell skin ca nose, lips, face PAST SURGICAL HISTORY OF 1972 removal of sweat glands (bilateral axilla (right x 2)and groin) PAST SURGICAL HISTORY OF 03/06/2016 removal of polyp at [facility] [employer] COVID-19 VACCINE, AGE 12+ YR (PURPLE TOP) 09/11/2020 first vaccine REM LESION TRUNK,ARM, LEG <0.5 CM 01/24/2014 Exc. se (more content not included)... Normal [facility] XR FOOT 3V AP/LAT/OBL LTon 0 01-21-2025 XR FOOT 3V AP/LAT/OBL LT * * *Final Report* * * DATE OF EXAM: Jan 21 2025 12:57PM [facility] [id number] - XR FOOT 3V AP/LAT/OBL LT / PROCEDURE REASON: multiple diagnoses * * * * Physician Interpretation * * * * EXAM TITLE: XR FOOT 3V AP/LAT/OBL LT EXAM DATE/TIME: 01/21/2025 12:57 PM COMPARISON: None CLINICAL INDICATION/HISTORY: Fall. TECHNIQUE: AP, lateral and oblique views of the left foot are presented. FINDINGS: No acute fractures or subluxations are noted. There is first metatarsophalangeal joint space narrowing, with minimal osteophyte formation. The mineralization of the bones is normal. There is no significant soft tissue swelling. IMPRESSION: No acute fracture seen in the left foot. Degenerative changes in the first metatarsophalangeal joint. Photographs Curator: PSCB Transcribe Date/Time: Jan 21 2025 1:06P Dictated by : SUMEET JARRETT MD This examination was interpreted and the report reviewed and electronically signed by: SUMEET JARRETT MD on Jan 21 2025 1:10PM EST [id number] Normal [facility] XR Foot - left AP and Latera l and obliqueon 01-21-2025 IMPRESSION: No acute fracture seen in the left foot. Degenerative changes in the first metatarsophalangeal joint. Photographs Curator: DON Transcribe Date/Time: Jan 21 2025 1:06P Dictated by : SUMEET JARRETT MD This examination was interpreted and the report reviewed and electronically signed by: SUMEET JARRETT MD on Jan 21 2025 1:10PM [facility] DIVISION OF RADIOLOGY * * *Final Report* * * DATE OF EXAM: Jan 21 2025 12:57PM WOX [id number] - XR FOOT 3V AP/LAT/OBL LT / PROCEDURE REASON: multiple diagnoses * * * * Physician Interpretation * * * * EXAM TITLE: XR FOOT 3V AP/LAT/OBL LT EXAM DATE/TIME: 01/21/2025 12:57 PM COMPARISON: None CLINICAL INDICATION/HISTORY: Fall. TECHNIQUE: AP, lateral and oblique views of the left foot are presented. FINDINGS: No acute fractures or subluxations are noted. There is first metatarsophalangeal joint space narrowing, with minimal osteophyte formation. The mineralization of the bones is normal. There is no significant soft tissue swelling. DIVISION [facility] RADIOLOGY [facility] * * *Final Report* * * DATE OF EXAM: Jan 21 2025 12:57PM WOX [id number] - XR FOOT 3V AP/LAT/OBL LT / PROCEDURE REASON: multiple diagnoses * * * * Physician Interpretation * * * * EXAM TITLE: XR FOOT 3V AP/LAT/OBL LT EXAM DATE/TIME: 01/21/2025 12:57 PM COMPARISON: None CLINICAL INDICATION/HISTORY: Fall. TECHNIQUE: AP, lateral and oblique views of the left foot are presented. FINDINGS: No acute fractures or subluxations are noted. There is first metatarsophalangeal joint space narrowing, with minimal osteophyte formation. The mineralization of the bones is normal. There is no significant soft tissue swelling. IMPRESSION IMPRESSION: No acute fracture seen in the left foot. Degenerative changes in the first metatarsophalangeal joint. Photographs Curator: DON Transcribe Date/Time: Jan 21 2025 1:06P Dictated by : SUMEET JARRETT MD This examination was interpreted and the report reviewed and electronically signed by: SUMEET JARRETT MD on Jan 21 2025 1:10PM EST [facility] Radiology Study observation (narrative) [facility] XR Foot - left AP and Latera l and obliqueOrdered By: Ccf Provider on 01-21-2025 [facility] US Pelvison 01-02-2025 Indication constipation, family history of malignancy, history of breast cancer Impression The uterus is anteverted and measures 71 mm x 39 mm x 53 mm. The endometrial thickness is 1.7 mm. The right ovary measures 10 mm x 9 mm x 23 mm. The left ovary is not visualized. There is no free fluid visualized. Recommendations Normal pelvic ultrasound. 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 View: Suboptimal view: restricted by poor bladder filling. Suboptimal view: restricted by increased bowel gas. Suboptimal view: restricted by patient discomfort Uterus Uterus: Visualized Uterus position: anteverted Description of uterine malformations: none Myometrium: heterogeneous, normal Endometrium: normal Cervix details: normal Uterus length 71 mm Uterus width 53 mm Uterus height 39 mm Uterus Vol 75.0 cm Endometrial thickness, total 1.7 mm Fibroids: No fibroids identified Polyps: No polyps identified Right Ovary Rt ovary: Visualized Rt ovary morphology: postmenopausal atrophic Rt ovary D1 10 mm Rt ovary D2 9 mm Rt ovary D3 23 mm Rt ovary Vol 1.2 cm Rt ovarian cyst(s): No cysts identified Left Ovary Lt ovary: Not visualized Cul de Sac Visualized. no free fluid visualized Performed By: Adriana Limon RDMS Read By: Kam Tay M.D. MATERNAL MEDICINE [facility] DBT Breast - bilateral scree nayelygopiter 01-01-2025 IMPRESSION: There is no mammographic evidence of malignancy. Routine screening mammogram is recommended. Annual mammogram will be due in 1 year. BI-RADS Category 2: Benign RISK: Due to the reported patient's history, the patient's estimated lifetime risk of developing breast cancer cannot be assessed at this time. We encourage all patients to talk with their providers about their risk assessment, further recommendations for managing breast health, and appropriate supplemental screening options if the patient has dense breast tissue. Interpreting Radiologist: Geovanna Fink M.D. Electronically signed on: 01/01/2025 Photographs Curator: COLTON Transcribe Date/Time: Jan 01 2025 9:38A Dictated by: GEOAVNNA FINK MD This examination was interpreted and the report reviewed and electronically signed by: GEOVANNA FINK MD on Jan 01 2025 1:31PM [facility] DIVISION OF RADIOLOGY * * *Final Report* * * DATE OF EXAM: Jan 01 2025 9:51AM [facility] 0582 - YAQUELIN SCREENING W SHAGGY / PROCEDURE REASON: multiple diagnoses * * * * Physician Interpretation * * * * RESULT: [facility] [address] [place] [address] #[id number] - [facility] SCREENING W SHAGGY HISTORY: 74 year-old patient presents for screening. Patient is asymptomatic in both breasts. The patient has the following personal history of breast cancer: breast cancer in the right breast. The patient has a family history of breast cancer. COMPARISON STUDIES: The present examination has been compared to prior imaging studies dated 01/27/2019 (ultrasound), 01/27/2019 (mammogram), 11/09/2021 (mammogram), 11/30/2023 (mammogram) and 01/16/2024 (mammogram). MAMMOGRAM TECHNIQUE: The study was acquired using full field digital technology and interpreted from soft copy. Digital Breast Tomosynthesis (DBT) images were obtained and used to assist in the interpretation of this examination. MAMMOGRAM FINDINGS: The breasts are almost entirely fatty. There are post-operative changes from bilateral mastectomy with tissue flap reconstruction. No suspicious masses, calcifications or other abnormalities are seen in either breast. DIVISION OF RADIOLOGY Provider, [facility] - 01/01/2025 * * *Final Report* * * DATE OF EXAM: Jan 01 2025 9:51AM [facility] 0582 - YAQUELIN SCREENING W SHAGGY / PROCEDURE REASON: multiple diagnoses * * * * Physician Interpretation * * * * RESULT: [facility] [address] [id number] #[id number] - [facility] SCREENING W SHAGGY HISTORY: 74 year-old patient presents for screening. Patient is asymptomatic in both breasts. The patient has the following personal history of breast cancer: breast cancer in the right breast. The patient has a family history of breast cancer. COMPARISON STUDIES: The present examination has been compared to prior imaging studies dated 01/27/2019 (ultrasound), 01/27/2019 (mammogram), 11/09/2021 (mammogram), 11/30/2023 (mammogram) and 01/16/2024 (mammogram). MAMMOGRAM TECHNIQUE: The study was acquired using full field digital technology and interpreted from soft copy. Digital Breast Tomosynthesis (DBT) images were obtained and used to assist in the interpretation of this examination. MAMMOGRAM FINDINGS: The breasts are almost entirely fatty. There are post-operative changes from bilateral mastectomy with tissue flap reconstruction. No suspicious masses, calcifications or other abnormalities are seen in either breast. IMPRESSION IMPRESSION: There is no mammographic evidence of malignancy. Routine screening mammogram is recommended. Annual mammogram will be due in 1 year. BI-RADS Category 2: Benign RISK: Due to the reported patient's history, the patient's estimated lifetime risk of developing breast cancer cannot be assessed at this time. We encourage all patients to talk with their providers about their risk assessment, further recommendations for managing breast health, and appropriate supplemental screening options if the patient has dense breast tissue. Interpreting Radiologist: Geovanna Fink M.D. Electronically signed on: 01/01/2025 Photographs Curator: COLTON Transcribe Date/Time: Jan 01 2025 9:38A Dictated by: GEOVANNA FINK MD This examination was interpreted and the report reviewed and electronically signed by: GEOVANNA FINK MD on Jan 01 2025 1:31PM EST [facility] Radiology Study observation (narrative) [facility] DBT Breast - bilateral scree ningOrdered By: Ccf Provider on 01-01-2025 [facility] YAQUELIN SCREENING W TOMOon 01-01 YAQUELIN SCREENING W SHAGGY * * *Final Report* * * DATE OF EXAM: Jan 01 2025 9:51AM [facility] [id number] - YAQUELIN SCREENING W SHAGGY / PROCEDURE REASON: multiple diagnoses * * * * Physician Interpretation * * * * RESULT: [place] [address] [place] [id number] #[id number] - [facility] SCREENING W SHAGGY HISTORY: 74 year-old patient presents for screening. Patient is asymptomatic in both breasts. The patient has the following personal history of breast cancer: breast cancer in the right breast. The patient has a family history of breast cancer. COMPARISON STUDIES: The present examination has been compared to prior imaging studies dated 01/27/2019 (ultrasound), 01/27/2019 (mammogram), 11/09/2021 (mammogram), 11/30/2023 (mammogram) and 01/16/2024 (mammogram). MAMMOGRAM TECHNIQUE: The study was acquired using full field digital technology and interpreted from soft copy. Digital Breast Tomosynthesis (DBT) images were obtained and used to assist in the interpretation of this examination. MAMMOGRAM FINDINGS: The breasts are almost entirely fatty. There are post-operative changes from bilateral mastectomy with tissue flap reconstruction. No suspicious masses, calcifications or other abnormalities are seen in either breast. IMPRESSION: There is no mammographic evidence of malignancy. Routine screening mammogram is recommended. Annual mammogram will be due in 1 year. BI-RADS Category 2: Benign RISK: Due to the reported patient's history, the patient's estimated lifetime risk of developing breast cancer cannot be assessed at this time. We encourage all patients to talk with their providers about their risk assessment, further recommendations for managing breast health, and appropriate supplemental screening options if the patient has dense breast tissue. Interpreting Radiologist: Geovanna Fink M.D. Electronically signed on: 01/01/2025 Photographs Curator: COLTON Transcribe Date/Time: Jan 01 2025 9:38A Dictated by: GEOVANNA FINK MD This examination was interpreted and the report reviewed and electronically signed by: GEOVANNA FINK MD on Jan 01 2025 1:31PM EST [id number] Normal [facility] US Pelvison 01-01-2025 Radiology Study observation (narrative) [facility] CNOVon 12-31-2024 CNOV Office Visit (FAMPWS ) MONTSERRAT AGUAYO ([id number]) 1950 F Date Time Provider Department 12/31/24 2:00 PM LIAM WILKINS During your visit today, we recorded the following information about you: Pulse Respiration Blood pressure Weight 84/minute 16/minute 118/80 94.2 kg Liam Wilkins MD 12/31/2024 10:08 PM Signed Chief Complaint Patient presents with: Eye Pain HPI Montserrat Aguayo is a 74 year old female who presents here today for right eye pain. Pt called into the office today and spoke with Triage Nurse regarding her symptoms. Pt woke up Sunday morning with right eye pain, soreness, and discomfort behind her eye. Denies any injury or redness to the eye. She did see an Eye Provider on 12/30/24 who examined her eye and stated overall her eye exam was good, no injury in eye, nothing in her eye, and her pressures were good. She was given a prescription for an antibiotic cream to apply twice a day both eyes, due to possible infection. Has applied one application last night and this morning. She was advised if she started getting a MASTERS to contact her PCP's office. This morning she woke up with MASTERS symptoms. Reports aching pain right around her right eye area. Pain described as aching. Montserrat Aguayo is a 74-year-old female presenting with right eye pain. Montserrat reports right eye pain that began yesterday and was evaluated by ophthalmology. The cork tipper performed a comprehensive examination, including fluorescein staining and eversion of the eyelid, and prescribed an ointment. No abrasions or foreign bodies were identified, and the internal structures of the eye appeared normal. Despite this, Montserrat continues to experience pain when blinking, which is localized to the eye, behind the eye, and on the surrounding bone. She also reports discomfort when closing her eyes and significant pain when looking down. Eye movement is mildly painful, but she denies any changes in vision. She denies any history of facial trauma, fever, or chills. She does not wear contact lenses but uses [id number] glasses for reading and computer use. Past medical history, appointments, medications, allergies reviewed. Previous Medical History PAST MEDICAL HISTORY Diagnosis Date Acquired hypothyroidism 11/29/2005 Bilateral carotid artery stenosis 07/13/2021 US: 06/2021: Stephen 20-40% Breast cancer (HCC) 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, right (HCC) 10/05/2017 Cataracts, bilateral 12/20/2016 Some relation to steroids with her asthma. 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 Incomplete tear of left rotator cuff 04/16/2023 Internal hemorrhoids without mention of complication Irritable bowel syndrome with both constipation and diarrhea 07/28/2020 Labral tear of long head of left biceps tendon 04/16/2023 Lichen sclerosus Living will in place 01/04/2022 DPA: Deshawn () Mass of left lower leg 07/03/2018 Benign w/u Metabolic syndrome 04/19/2016 Mild persistent asthma (HCC) 09/07/2011 Mitral valve disorders(424.0) Mixed hyperlipidemia 11/29/2005 Neural foraminal stenosis of cervical spine 03/21/2022 Mod-sever on the left Neutropenia, drug-induced 08/11/2011 Nonrheumatic aortic valve stenosis 06/13/2024 Seeing Cardio: Dr. Colon Obesity Osteopenia 12/22/2024 Right Hip Over weight 10/17/2023 Plantar fasciitis 11/24/2013 Primary insomnia 07/06/2021 Right-sided chest wall pain 10/05/2017 Secondary to breast cancer radiation. RSD (reflex sympathetic dystrophy) Sebaceous cyst 01/20/2014 Spinal stenosis, unspecified region other than cervical 03/02/2006 Tear of left glenoid labrum 04/16/2023 Trigger ring finger of right hand 06/23/2014 Vitamin D deficiency 09/15/2019 Previous Surgical History PAST SURGICAL HISTORY Procedure Laterality Date ADENOIDECTOMY PRIMARY Adenoidectomy BREAST BIOPSY CORE 04/11/2011 right breast 2:00, 4:00 and 10:00 BREAST BIOPSY INCISIONAL 14 years ago right and left breast- benign BREAST RECONSTRUC W FREE FLAP 12/13/2012 bilateral breast BREAST RECONSTRUC W TISS EXPANDR 05/25/2011 right breast with elevation of the serratus flap CARDIAC CATH 03/20/2017 normal, by Dr. Colvin COLONOSCOPY 01/03/2024 repeat 3 years COLONOSCOPY FLX DX W/COLLJ SPEC WHEN PFRMD 04/08/2007 COLONOSCOPY FLX DX W/COLLJ SPEC WHEN PFRMD N/A 03 (more content not included)... Normal [facility] CT ORBITS W IVCONon 01-01-[address] ORBITS W IVCON * * *Final Report* * * DATE OF EXAM: Dec 31 2024 5:07PM [facility] 0014 - CT ORBITS W IVCON / PROCEDURE REASON: multiple diagnoses * * * * Physician Interpretation * * * * EXAMINATION: CT ORBITS W IVCON HISTORY: Acute right eye pain Pain of right eye . TECHNIQUE: CT facial bones with contrast. MQ: CTBWO_3 CT Dose-Length Product (DLP): 303.47 mGy*cm CT Dose Reduction Employed: Automated exposure control(AEC) and iterative recon Contrast: Omnipaque 350. Contrast Dose: 100 cc Route of Administration: IV COMPARISON: CT dated 09/25/2022 RESULT: CT FACIAL BONES: Soft Tissues: Minimal bilateral lower preseptal soft tissue swelling, could reflect preseptal cellulitis in appropriate clinical setting. No discrete post septal extension identified. No abscess. No abnormal enhancement. Facial bones: No evidence of an acute fracture in the visualized facial bones. Orbits: No evidence of an acute fracture. The globes are intact. The soft tissue planes of the orbits are maintained. Paranasal Sinuses: The paranasal sinuses are clear. Foreign Bodies: No evidence of radio opaque foreign bodies. Other: No evidence of a remote fracture. No lytic or blastic process seen in the facial bones. 2 mm LEFT P-comm aneurysm versus infundibulum image: 99, Series: 4 IMPRESSION: 1. Minimal bilateral lower preseptal soft tissue swelling, could reflect preseptal cellulitis in appropriate clinical setting. No definite post septal extension identified. No abscess. 2.2 mm LEFT P-comm aneurysm versus infundibulum image: 99, Series: [address] or MR angiogram of head for confirmation. COMMUNICATION: Instructed ISN to call report to provider at 12/31/2024 9:37 PM Photographs Curator: DON Transcribe Date/Time: Dec 31 2024 9:32P Dictated by : REHAN DELEON MD This examination was interpreted and the report reviewed and electronically signed by: REHAN DELEON MD on Dec 31 2024 9:38PM EST [id number] Normal [facility] CT Orbit W contrast Arian IMPRESSION: 1. Minimal bilateral lower preseptal soft tissue swelling, could reflect preseptal cellulitis in appropriate clinical setting. No definite post septal extension identified. No abscess. 2.2 mm LEFT P-comm aneurysm versus infundibulum image: 99, Series: [address] or MR angiogram of head for confirmation. COMMUNICATION: Instructed ISN to call report to provider at 12/31/2024 9:37 PM Photographs Curator: [facility] Transcribe Date/Time: Dec 31 2024 9:32P Dictated by : REHAN DELEON MD This examination was interpreted and the report reviewed and electronically signed by: REHAN DELEON MD on Dec 31 2024 9:38PM EST [facility] * * *Final Report* * * DATE OF EXAM: Dec 31 2024 5:07PM [facility] 0014 - CT ORBITS W IVCON / PROCEDURE REASON: multiple diagnoses * * * * Physician Interpretation * * * * EXAMINATION: CT ORBITS W IVCON HISTORY: Acute right eye pain Pain of right eye . TECHNIQUE: CT facial bones with contrast. MQ: CTBWO_3 CT Dose-Length Product (DLP): 303.47 mGy*cm CT Dose Reduction Employed: Automated exposure control(AEC) and iterative recon Contrast: Omnipaque 350. Contrast Dose: 100 cc Route of Administration: IV COMPARISON: CT dated 09/25/2022 RESULT: CT FACIAL BONES: Soft Tissues: Minimal bilateral lower preseptal soft tissue swelling, could reflect preseptal cellulitis in appropriate clinical setting. No discrete post septal extension identified. No abscess. No abnormal enhancement. Facial bones: No evidence of an acute fracture in the visualized facial bones. Orbits: No evidence of an acute fracture. The globes are intact. The soft tissue planes of the orbits are maintained. Paranasal Sinuses: The paranasal sinuses are clear. Foreign Bodies: No evidence of radio opaque foreign bodies. Other: No evidence of a remote fracture. No lytic or blastic process seen in the facial bones. 2 mm LEFT P-comm aneurysm versus infundibulum image: 99, Series: 4 [place] [facility] Provider, [facility] - 12/31/2024 * * *Final Report* * * DATE OF EXAM: Dec 31 2024 5:07PM [facility] 0014 - CT ORBITS W IVCON / PROCEDURE REASON: multiple diagnoses * * * * Physician Interpretation * * * * EXAMINATION: CT ORBITS W IVCON HISTORY: Acute right eye pain Pain of right eye . TECHNIQUE: CT facial bones with contrast. MQ: CTBWO_3 CT Dose-Length Product (DLP): 303.47 mGy*cm CT Dose Reduction Employed: Automated exposure control(AEC) and iterative recon Contrast: Omnipaque 350. Contrast Dose: 100 cc Route of Administration: IV COMPARISON: CT dated 09/25/2022 RESULT: CT FACIAL BONES: Soft Tissues: Minimal bilateral lower preseptal soft tissue swelling, could reflect preseptal cellulitis in appropriate clinical setting. No discrete post septal extension identified. No abscess. No abnormal enhancement. Facial bones: No evidence of an acute fracture in the visualized facial bones. Orbits: No evidence of an acute fracture. The globes are intact. The soft tissue planes of the orbits are maintained. Paranasal Sinuses: The paranasal sinuses are clear. Foreign Bodies: No evidence of radio opaque foreign bodies. Other: No evidence of a remote fracture. No lytic or blastic process seen in the facial bones. 2 mm LEFT P-comm aneurysm versus infundibulum image: 99, Series: 4 IMPRESSION IMPRESSION: 1. Minimal bilateral lower preseptal soft tissue swelling, could reflect preseptal cellulitis in appropriate clinical setting. No definite post septal extension identified. No abscess. 2.2 mm LEFT P-comm aneurysm versus infundibulum image: 99, Series: [address] or MR angiogram of head for confirmation. COMMUNICATION: Instructed ISN to call report to provider at 12/31/2024 9:37 PM Photographs Curator: DON Transcribe Date/Time: Dec 31 2024 9:32P Dictated by : REHAN DELEON MD This examination was interpreted and the report reviewed and electronically signed by: REHAN DELEON MD on Dec 31 2024 9:38PM EST [facility] Radiology Study observation (narrative) [facility] CT Orbit W contrast IVOrdere d By: Ccf Provider on 12-31-2024 [facility] Creatinine + eGFR Pnl SerPlB ldon 12-31-2024 Creatinine and Glomerular filtration rate.predicted panel (S/P/Bld) 77 mL/min/1.73m??? Normal >=60 [facility] Comment on above: Order Comment: Speci men Type: BLOOD SPECIMENOrdering Facility: [facility] Address: [address] [place] [address] [place] [address] Result Comment: Yvette mated Glomerular Filtration Rate (eGFR) is calculated using the 2020 CKD-EPI creatinine equation. This equation utilizes serum creatinine, sex, and age as parameters. The creatinine assay has traceable calibration to isotope dilution-mass spectrometry. Refer to KDIGO guidelines for clinical interpretation. In patients with unstable renal function, e.g. those with acute kidney injury, the eGFR may not accurately reflect actual GFR. Performed By: #### 4 [id number] ####[facility] [id number] [place] [address] [place] Creatinine and Glomerular fi ltration rate.predicted panel (S/P/Bld)Ordered By: Jane Matias on 12-31-2024 Creatinine [Mass/Vol] 0.81 mg/dL 0.58 - 0.96 mg/dL [facility] GFR/1.73 sq M.predicted among non-blacks MDRD (S/P/Bld) [Vol rate/Area] 77 mL/min/{1.73_m2} - PINF [facility] Comment on above: Estimated Glomerular Filtration Rate (eGFR) is calculated using the 2020 CKD-EPI creatinine equation. This equation utilizes serum creatinine, sex, and age as parameters. The creatinine assay has traceable calibration to isotope dilution-mass spectrometry. Refer to KDIGO guidelines for clinical interpretation. In patients with unstable renal function, e.g. those with acute kidney injury, the eGFR may not accurately reflect actual GFR. Interpretation and review of laboratory results Normal [facility] Creatinine and Glomerular fi ltration rate.predicted panel (S/P/Bld)on 12-31-2024 Creatinine [Mass/Vol] 0.81 mg/dL Normal 0.58-0.96 [facility] Comment on above: Order Comment: Speci men Type: BLOOD SPECIMENOrdering Facility: [facility] Address: [facility] [place] [id number] Performed By: #### 4 [id number] ####[facility] [id number] [address] [facility] MONTSERRAT AGUAYO ([id number]) 1950 F Date Time Provider Department 12/15/24 [facility] During your visit today, we recorded the following information about you: Eliz Camarena LPN 12/15/2024 9:41 AM Signed Patient calling with question, she was told by 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 Patient wanted to ask PCP if she should go ahead and start taking both? Can send her a my chart message with response. Please advise Jojo Anderson APRN.INTEL RECRUITER 12/15/2024 10:30 AM Signed Ok for patient to start supplementation. Clarisa Solorzano MA 12/15/2024 11:32 AM Signed [employer] message sent with response to below per pt request Clarisa Solorzano MA Allergies As of Date: 12/15/2024 Noted Allergy Reaction TYPHOID VACCINE 05/12/2005 5 - Intolerance ADHESIVE TAPE (ROSINS) 04/17/2011 14 - Other: See Comments Comments: after 2 days area becomes red and itches CATS 05/12/2005 5 - Intolerance DICLOFENAC 01/04/2016 14 - Other: See Comments Comments: elevated liver enz DOGS 05/12/2005 5 - Intolerance DUST 05/12/2005 5 - Intolerance MELOXICAM 01/10/2016 14 - Other: See Comments Comments: Swollen eyelids MOLD 05/12/2005 5 - Intolerance TEGRETOL (CARBAMAZEPINE ANALOGUES)11/24/2008 5 - Intolerance Comments: blood problem Date Reviewed: 11/26/2024 Reviewed by: Sabas Peacock LPN - Fully Assessed Reason for Visit: Patient Question [2542] Prescriptions as of 12/15/2024 - pioglitazone (ACTOS) 30 mg tablet Take 1 tablet by mouth once daily. - atorvastatin (LIPITOR) 80 mg tablet Take 1 tablet by mouth once daily. - VENTOLIN HFA 90 mcg/actuation inhaler Inhale 2 puffs as instructed every 4 hours as needed. - clobetasol (TEMOVATE) 0.05 % ointment Apply 1 application to affected area two times a day. - metoprolol succinate ER (TOPROL XL) 25 mg 24 hr tablet Take 1 tablet by mouth once daily. - levothyroxine (SYNTHROID) 100 mcg tablet Take 1 tablet by mouth daily before breakfast. - amitriptyline (ELAVIL) 25 mg tablet Take 2 tablets by mouth daily at bedtime. - acetaminophen (TYLENOL) 500 mg tablet Take 1,000 mg by mouth at bedtime as needed. - COMPOUNDED PRESCRIPTION NEBULIZER and supplies FOR HOME USE. DX: J45.30, J45.90. Length of need is life. This is a medically necessary devise for management of patients lung disease. Current machine recently stopped working. While trying to use it started to smoke and stopped. Problem List As Of Date 12/15/2024 Noted Resolved Acquired hypothyroidism [E03.9] 11/29/2005 Mixed hyperlipidemia [E78.2] 11/29/2005 Spinal stenosis, unspecified region other than *03/02/2006 RSD (reflex sympathetic dystrophy) [G90.50] Mitral valve disorders(424.0) [I05.9] Abdominal pain, unspecified site [R10.9] 01/22/2007 09/10/2013 Neck pain [M54.2] 01/27/2011 Cellulitis [L03.90] 06/21/2011 06/08/2014 Neutropenia, drug-induced (HCC) [D70.2] 08/11/2011 Mild persistent asthma [J45.30] 09/07/2011 Plantar fasciitis [M72.2] 11/24/2013 Wrist pain [M25.539] 11/24/2013 06/08/2014 Sebaceous cyst [L72.3] 01/20/2014 Ganglion and cyst of synovium, tendon and bursa*06/23/2014 Trigger ring finger of right hand [M65.341] 06/23/2014 Fatty liver [K76.0] 04/19/2016 Metabolic syndrome [E88.810] 04/19/2016 Gastroesophageal reflux disease without esophag*08/21/2016 Diverticulosis of large intestine [K57.30] Internal hemorrhoids without mention of complic* History of detached retina repair [Z98.890, Z86*12/20/2016 Cataracts, bilateral [H26.9] 12/20/2016 Well adult exam [Z00.00] 12/20/2016 Elevated hemoglobin A1c [R73.09] 09/10/2017 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, right (HCC) [C50.91*10/05/2017 Right-sided chest wall pain [R07.89] 10/05/2017 Class 1 obesity due to excess calories without *12/31/2017 10/17/2023 Mass of left lower leg [R22.42] 07/03/2018 Ex-smoker [Z87.891] History of skin cancer [Z85.828] History of colonic polyps [Z86.0100] 01/06/2019 Vitamin D deficiency [E55.9] 09/15/2019 Irritable bowel syndrome with both constipation*07/28/2020 Bilateral carotid artery stenosis [I65.23] 07/13/[address] [Z78.9] 01/04/2022 Advance directive discussed with patient [Z71.8*01/04/2022 Medication management [Z79.899] 01/04/2022 Neural foraminal stenosis of cervical spine [M4*03/21/2022 Acute pain of left shoulder [M25.512] 02/20/2023 Tear of left glenoid labrum [S43.432A] 04/16/2023 Incomplete tear of left rotator cuff [M75.112] 04/16/2023 Labral tear of long head of left biceps tendon *04/16/2023 Over weight [E66.3] 10/17/2023 Colon cancer screening [Z12.11] 10/31/2023 Nonrheumatic aortic valve stenosis [I35.0] 06/13/2024 Vertigo [R42] 08/12/2024 Skin cancer screening [Z12.83] 10/29/2024 Encounter (more content not included)... Normal [facility] BD DXA - AXIAL SKELETONon BD DXA - AXIAL SKELETON * * *Final Report* * * DATE OF EXAM: Dec 11 2024 3:42PM ERICKSON 0804 - BD DXA - AXIAL SKELETON / PROCEDURE REASON: Encounter for screening for osteoporosis * * * * Physician Interpretation * * * * EXAMINATION: DXA BONE DENSITOMETRY BD DXA - AXIAL SKELETON, BD DXA TRABECLR BONE SCORE (TBS) PATIENT DEMOGRAPHICS: Age: 74 years, Gender: Female SCANNER INFORMATION: DXA Model: Snapsort - TidalScale C 61389 Date Scanned: 12/11/2024 3:42 PM CLINICAL HISTORY: SCREENING Encounter for screening for osteoporosis . RISK FACTORS FOR OSTEOPOROSIS AND ASSOCIATED FRACTURES REPORTED BY THIS PATIENT: Please refer to Bone Health Questionnaire in the EMR CURRENT THERAPY: Please refer to Bone Health Questionnaire in the EMR TECHNICAL LIMITATIONS: RESULTS: Lumbar spine (L1, L2, L3, L4): 1.055 g/cm2, T-score 0.1 , Z-score 2.3 Lumbar spine: 2012 : 1.095 g/cm2 Statistically significant decrease Right Femoral Neck: 0.725 g/cm2, T-score -1.1 , Z-score 0.8 Right Total Hip: 0.895 g/cm2, T-score -0.4 , Z-score 1.3 Left Femoral Neck: 0.767 g/cm2, T-score -0.7 , Z-score 1.2 Left Femoral Neck: 2012 : 0.924 g/cm2 Statistically significant decrease Left Total Hip: 0.968 g/cm2, T-score 0.2 , Z-score 1.9 Left Total Hip: 2012 : 1.128 g/cm2 Statistically significant decrease CHANGE IS STATISTICALLY SIGNIFICANT IN THE SPINE OR HIP IF GREATER THAN OR EQUAL TO 0.04 g/cm2 VERTEBRAL FRACTURE ASSESSMENT Not performed. TRABECULAR BONE ASSESSMENT TBS score: 1.218 Bone micro-architecture: Degraded (< or = 1.230) IMPRESSION: THE LOWEST T-SCORE IS -1.1 IN THE RIGHT HIP 1) DIAGNOSIS (based on BMD alone): OSTEOPENIA Caution: Medical conditions other than osteoporosis may cause low bone density, such as osteomalacia or renal osteodystrophy. Clinical correlation is necessary. 2) FRACTURE RISK (Based on TBS adjusted FRAX): 10-year absolute fracture risk: - major osteoporotic fracture = 12 % - hip fracture = 2.1 % - A diagnosis of Osteoporosis, a 10 year probability of hip fracture greater than or equal to 3% or a 10 year probability of any major osteoporosis-related fracture greater than or equal to 20% should be considered for treatment. - DXA scanner generated FRAX calculations may slightly differ from online FRAX calculations due to differences in software versions. - All recommendations and calculations are to be considered as guidelines and should not replace sound clinical judgement - Caution: Fracture risk may be increased independent of BMD in patients with corticosteroid use, age greater than 65 years, or a history of prior fragility fracture. RECOMMENDATIONS: Follow-up in 2 years or as clinically indicated. Patients that are taking corticosteroids, are transplant recipients or have hyperparathyroidism should have annual follow-up. Follow-up scans should always be done on the same machine for accurate comparison. FOR MORE INFORMATION ABOUT DIAGNOSIS AND TREATMENT: [facility] for Osteoporosis and Metabolic Bone Disease:? www.ccf.org/arthritis/o steo National Osteoporosis Foundation:? www.nof.org International Society of Clinical Densitometry www.iscd.org Photographs Curator: DON Transcribe Date/Time: Dec 14 2024 7:18A Dictated by : VENESSA DUMONT MD This examination was interpreted and the report reviewed and electronically signed by: VENESSA DUMONT MD on Dec 14 2024 7:20AM EST [id number] -1.1 Normal [facility] BD DXA TRABECLR BONE SCORE ( TBS)on 12-11-2024 BD DXA TRABECLR BONE SCORE (TBS) * * *Final Report* * * DATE OF EXAM: Dec 11 2024 3:42PM WRB 0801 - BD DXA TRABECLR BONE SCORE (TBS) / PROCEDURE REASON: Encounter for screening for osteoporosis * * * * Physician Interpretation * * * * EXAMINATION: DXA BONE DENSITOMETRY BD DXA - AXIAL SKELETON, BD DXA TRABECLR BONE SCORE (TBS) PATIENT DEMOGRAPHICS: Age: 74 years, Gender: Female SCANNER INFORMATION: DXA Model: Snapsort - TidalScale C 12527 Date Scanned: 12/11/2024 3:42 PM CLINICAL HISTORY: SCREENING Encounter for screening for osteoporosis . RISK FACTORS FOR OSTEOPOROSIS AND ASSOCIATED FRACTURES REPORTED BY THIS PATIENT: Please refer to Bone Health Questionnaire in the EMR CURRENT THERAPY: Please refer to Bone Health Questionnaire in the EMR TECHNICAL LIMITATIONS: RESULTS: Lumbar spine (L1, L2, L3, L4): 1.055 g/cm2, T-score 0.1 , Z-score 2.3 Lumbar spine: 2011 : 1.095 g/cm2 Statistically significant decrease Right Femoral Neck: 0.725 g/cm2, T-score -1.1 , Z-score 0.8 Right Total Hip: 0.895 g/cm2, T-score -0.4 , Z-score 1.3 Left Femoral Neck: 0.767 g/cm2, T-score -0.7 , Z-score 1.2 Left Femoral Neck: 2012 : 0.924 g/cm2 Statistically significant decrease Left Total Hip: 0.968 g/cm2, T-score 0.2 , Z-score 1.9 Left Total Hip: 2012 : 1.128 g/cm2 Statistically significant decrease CHANGE IS STATISTICALLY SIGNIFICANT IN THE SPINE OR HIP IF GREATER THAN OR EQUAL TO 0.04 g/cm2 VERTEBRAL FRACTURE ASSESSMENT Not performed. TRABECULAR BONE ASSESSMENT TBS score: 1.218 Bone micro-architecture: Degraded (< or = 1.230) IMPRESSION: THE LOWEST T-SCORE IS -1.1 IN THE RIGHT HIP 1) DIAGNOSIS (based on BMD alone): OSTEOPENIA Caution: Medical conditions other than osteoporosis may cause low bone density, such as osteomalacia or renal osteodystrophy. Clinical correlation is necessary. 2) FRACTURE RISK (Based on TBS adjusted FRAX): 10-year absolute fracture risk: - major osteoporotic fracture = 12 % - hip fracture = 2.1 % - A diagnosis of Osteoporosis, a 10 year probability of hip fracture greater than or equal to 3% or a 10 year probability of any major osteoporosis-related fracture greater than or equal to 20% should be considered for treatment. - DXA scanner generated FRAX calculations may slightly differ from online FRAX calculations due to differences in software versions. - All recommendations and calculations are to be considered as guidelines and should not replace sound clinical judgement - Caution: Fracture risk may be increased independent of BMD in patients with corticosteroid use, age greater than 65 years, or a history of prior fragility fracture. RECOMMENDATIONS: Follow-up in 2 years or as clinically indicated. Patients that are taking corticosteroids, are transplant recipients or have hyperparathyroidism should have annual follow-up. Follow-up scans should always be done on the same machine for accurate comparison. FOR MORE INFORMATION ABOUT DIAGNOSIS AND TREATMENT: [facility] for Osteoporosis and Metabolic Bone Disease:? www.ccf.org/arthritis/o steo National Osteoporosis Foundation:? www.nof.org International Society of Clinical Densitometry www.iscd.org Photographs Curator: DON Transcribe Date/Time: Dec 14 2024 7:18A Dictated by : VENESSA DUMONT MD This examination was interpreted and the report reviewed and electronically signed by: VENESSA DUMONT MD on Dec 14 2024 7:20AM EST [id number] -1.1 Normal [facility] CNOVon 11-26-2024 CNOV Office Visit (FAMPWS ) MONTSERRAT AGUAYO ([id number]) 1950 F Date Time Provider Department 11/26/24 8:00 AM [facility] During your visit today, we recorded the following information about you: Temperature Pulse Respiration Blood pressure 97 degrees 71/minute 18/minute 128/70 Weight 91.6 kg Obdulia Rowley PA-C 11/26/2024 11:24 AM Signed Chief Complaint Patient presents with: Follow Up: Was seen in and is not feeling any better HPI Montserrat R Olivier is a 74 year old female who presents here today for continued URI symptoms and productive cough. She was seen in [facility] 1 week ago, was given 40 mg prednisone x5d and doxycycline x5 days both completed without any improvement. She has a history of asthma and has been using her ventolin inhaler more frequently. She is coughing up mucus and wakes up during the night coughing. Denies fever, SOB, chest pain, n/v, diarrhea or hemoptysis. She does use afrin daily but this has been her habit for over 20 years. Past medical history, appointments, medications, allergies reviewed. Previous Medical History PAST MEDICAL HISTORY Diagnosis Date Acquired hypothyroidism 11/29/2005 Bilateral carotid artery stenosis 07/13/2021 US: 06/2021: Setphen 20-40% Breast cancer (HCC) 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, right (HCC) 10/05/2017 Cataracts, bilateral 12/20/2016 Some relation to steroids with her asthma. 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 Incomplete tear of left rotator cuff 04/16/2023 Internal hemorrhoids without mention of complication Irritable bowel syndrome with both constipation and diarrhea 07/28/2020 Labral tear of long head of left biceps tendon 04/16/2023 Lichen sclerosus Living will in place 01/04/2022 DPA: Deshawn () Mass of left lower leg 07/03/2018 Benign w/u Metabolic syndrome 04/19/2016 Mild persistent asthma (HCC) 09/07/2011 Mitral valve disorders(424.0) Mixed hyperlipidemia 11/29/2005 Neural foraminal stenosis of cervical spine 03/21/2022 Mod-sever on the left Neutropenia, drug-induced 08/11/2011 Nonrheumatic aortic valve stenosis 06/13/2024 Seeing Cardio: Dr. Dookhan Obesity Over weight 10/17/2023 Plantar fasciitis 11/24/2013 Primary insomnia 07/06/2021 Right-sided chest wall pain 10/05/2017 Secondary to breast cancer radiation. RSD (reflex sympathetic dystrophy) Sebaceous cyst 01/20/2014 Spinal stenosis, unspecified region other than cervical 03/02/2006 Tear of left glenoid labrum 04/16/2023 Trigger ring finger of right hand 06/23/2014 Vitamin D deficiency 09/15/2019 Previous Surgical History PAST SURGICAL HISTORY Procedure Laterality Date ADENOIDECTOMY PRIMARY Adenoidectomy BREAST BIOPSY CORE 04/11/2011 right breast 2:00, 4:00 and 10:00 BREAST BIOPSY INCISIONAL 14 years ago right and left breast- benign BREAST RECONSTRUC W FREE FLAP 12/13/2012 bilateral breast BREAST RECONSTRUC W TISS EXPANDR 05/25/2011 right breast with elevation of the serratus flap CARDIAC CATH 03/20/2017 normal, by Dr. Colvin COLONOSCOPY 01/03/2024 repeat 3 years COLONOSCOPY FLX DX W/COLLJ SPEC WHEN PFRMD 04/08/2007 COLONOSCOPY FLX DX W/COLLJ SPEC WHEN PFRMD N/A 09/06/2016 MAC COLONOSCOPY FLX DX W/COLLJ SPEC WHEN PFRMD 02/10/2019 Colonoscopy INSJ TUNNELED CTR VAD W/SUBQ PORT AGE 5 YR/> 07/06/2011 left IJ MASTECTOMY, SIMPLE, COMPLETE 05/25/2011 right breast skin-sparing with SLND/level 1 LND MASTECTOMY, SIMPLE, COMPLETE 12/13/2012 prophylactic left breast PAST SURGICAL HISTORY OF squamous cell skin ca nose, lips, face PAST SURGICAL HISTORY OF 1972 removal of sweat glands (bilateral axilla (right x 2)and groin) PAST SURGICAL HISTORY OF 03/06/2016 removal of polyp at [facility] [employer] COVID-19 VACCINE, AGE 12+ YR (PURPLE TOP) 09/11/2020 first vaccine REM LESION TRUNK,ARM, LEG <0.5 CM 01/24/2014 Exc. deyanira cyst left inframammary REPAIR ROTATOR CUFF,ACUTE Left 07/02/2023 RMVL MOISES CTR VAD W/SUBQ PORT/BUHR MILL OPERATOR CTR/PRPH INSJ 01/18/2012 Removal left IJ port RPR COMPLEX RETINA DETACH VITRECT ANDMEMBRANE PEEL 09/2014 left retina SIGMOIDOSCOPY FLX DX W/COLLJ SPEC BR/WA IF PFRMD 01/27/2002 Sigmoidoscopy TONSILLECTOMY PRIMARY/SECONDARY Tonsillectomy Family History FAMILY HISTORY Problem Relation Age of Onset Breast Cancer Mother dx in her 50's other (uter (more content not included)... Normal [facility] XR CHEST 2V FRONTAL/LATon XR CHEST 2V FRONTAL/LAT * * *Final Report* * * DATE OF EXAM: Nov 26 2024 10:32AM WOX [id number] - XR CHEST 2V FRONTAL/LAT / PROCEDURE REASON: URI, acute * * * * Physician Interpretation * * * * EXAMINATION: CHEST RADIOGRAPH (2 VIEW FRONTAL and LATERAL) CLINICAL HISTORY: URI, acute MQ: XC2_6 EXAM DATE/TIME: 11/26/2024 10:32 AM COMPARISON: Radiograph dated 09/22/2022 RESULT: Lines, tubes, and devices: Numerous surgical clips again seen projecting over the bilateral hemithoraces. Lungs and pleura: No consolidation. No lung mass. No pleural effusion. No pneumothorax. Cardiomediastinal silhouette: Stable cardiomediastinal silhouette. Bones and soft tissues: Degenerative changes are present within the thoracic spine. IMPRESSION: No acute radiographic abnormality. Photographs Curator: DON Transcribe Date/Time: Nov 26 2024 10:33A Dictated by : KEVIN MONTESINOS MD This examination was interpreted and the report reviewed and electronically signed by: KEVIN MONTESINOS MD on Nov 26 2024 10:34AM EST [id number] Normal [facility] XR Chest PA and Lateralon IMPRESSION: No acute radiographic abnormality. Photographs Curator: [facility] Transcribe Date/Time: Nov 26 2024 10:33A Dictated by : KEVIN MONTESINOS MD This examination was interpreted and the report reviewed and electronically signed by: KEVIN MONTESINOS MD on Nov 26 2024 10:34AM EST DIVISION OF RADIOLOGY * * *Final Report* * * DATE OF EXAM: Nov 26 2024 10:32AM WOX 5291 - XR CHEST 2V FRONTAL/LAT / PROCEDURE REASON: URI, acute * * * * Physician Interpretation * * * * EXAMINATION: CHEST RADIOGRAPH (2 VIEW FRONTAL & LATERAL) CLINICAL HISTORY: URI, acute MQ: XC2_6 EXAM DATE/TIME: 11/26/2024 10:32 AM COMPARISON: Radiograph dated 09/22/2022 RESULT: Lines, tubes, and devices: Numerous surgical clips again seen projecting over the bilateral hemithoraces. Lungs and pleura: No consolidation. No lung mass. No pleural effusion. No pneumothorax. Cardiomediastinal silhouette: Stable cardiomediastinal silhouette. Bones and soft tissues: Degenerative changes are present within the thoracic spine. DIVISION OF RADIOLOGY Provider, Alivia Iman [facility] - 11/26/2024 * * *Final Report* * * DATE OF EXAM: Nov 26 2024 10:32AM WOX 5291 - XR CHEST 2V FRONTAL/LAT / PROCEDURE REASON: URI, acute * * * * Physician Interpretation * * * * EXAMINATION: CHEST RADIOGRAPH (2 VIEW FRONTAL & LATERAL) CLINICAL HISTORY: URI, acute MQ: XC2_6 EXAM DATE/TIME: 11/26/2024 10:32 AM COMPARISON: Radiograph dated 09/22/2022 RESULT: Lines, tubes, and devices: Numerous surgical clips again seen projecting over the bilateral hemithoraces. Lungs and pleura: No consolidation. No lung mass. No pleural effusion. No pneumothorax. Cardiomediastinal silhouette: Stable cardiomediastinal silhouette. Bones and soft tissues: Degenerative changes are present within the thoracic spine. IMPRESSION IMPRESSION: No acute radiographic abnormality. Photographs Curator: DON Transcribe Date/Time: Nov 26 2024 10:33A Dictated by : KEVIN MONTESINOS MD This examination was interpreted and the report reviewed and electronically signed by: KEVIN MONTESINOS MD on Nov 26 2024 10:34AM EST [facility] Radiology Study observation (narrative) [facility] XR Chest PA and LateralOrder ed By: [facility] Provider on 11-26-2024 [facility] CNPAbril 11-25-2024 CNPN Telephone (INTMWS) MONTSERRAT AGUAYO ([id number]) 1950 F Date Time Provider Department 11/25/24 LIAM WILKINS During your visit today, we recorded the following information about you: Viky HawkinsMITZY 11/25/2024 8:54 AM Signed Electronic PA rec'd and completed for ventolin. This was reviewed and approved with insurance. prior authorization approved Payer: [employer] [phone] Note from payer: CaseId:[id number];Status: Approved;Review Type:Prior Auth;Coverage Start Date:10/25/2024;Coverag e End Date:11/24/2025; Approval Details Authorized from October 25, 2024 to November 24, 2025 Electronic appeal: Not supported View History Medication Being Authorized VENTOLIN HFA 90 mcg/actuation inhaler Inhale 2 puffs as instructed every 4 hours as needed. Dispense: 18 g Refills: 2 ISAAC Start: 11/21/2024 Class: Normal This order has been released to its destination. To be filled at: [place] [address] [address] [facility] [phone] TerenceViky hernandezMITZY 11/25/2024 8:54 AM Signed Pt notified via [employer]. Allergies As of Date: 11/25/2024 Noted Allergy Reaction TYPHOID VACCINE 05/12/2005 5 - Intolerance ADHESIVE TAPE (ROSINS) 04/17/2011 14 - Other: See Comments Comments: after 2 days area becomes red and itches CATS 05/12/2005 5 - Intolerance DICLOFENAC 01/04/2016 14 - Other: See Comments Comments: elevated liver enz DOGS 05/12/2005 5 - Intolerance DUST 05/12/2005 5 - Intolerance MELOXICAM 01/10/2016 14 - Other: See Comments Comments: Swollen eyelids MOLD 05/12/2005 5 - Intolerance TEGRETOL (CARBAMAZEPINE ANALOGUES)11/24/2008 5 - Intolerance Comments: blood problem Date Reviewed: 11/21/2024 Reviewed by: Liam Gonzales APRN.INTEL RECRUITER - Fully Assessed Reason for Visit: Insurance Authorization [[id number]] Prescriptions as of 11/25/2024 - doxycycline (VIBRA-TABS) 100 mg tablet Take 1 tablet by mouth two times a day for 5 days. - predniSONE (DELTASONE) 20 mg tablet Take 2 tablets by mouth once daily for 5 days. - VENTOLIN HFA 90 mcg/actuation inhaler Inhale 2 puffs as instructed every 4 hours as needed. - clobetasol (TEMOVATE) 0.05 % ointment Apply 1 application to affected area two times a day. - pioglitazone (ACTOS) 15 mg tablet Take 2 tablets by mouth once daily. - metoprolol succinate ER (TOPROL XL) 25 mg 24 hr tablet Take 1 tablet by mouth once daily. - levothyroxine (SYNTHROID) 100 mcg tablet Take 1 tablet by mouth daily before breakfast. - amitriptyline (ELAVIL) 25 mg tablet Take 2 tablets by mouth daily at bedtime. - atorvastatin (LIPITOR) 80 mg tablet Take 1 tablet by mouth once daily. - fluticasone-salmeterol (ADVAIR, WIXELA) 250-50 mcg/dose inhaler Inhale 1 Puff as instructed two times a day. - acetaminophen (TYLENOL) 500 mg tablet Take 1,000 mg by mouth at bedtime as needed. - COMPOUNDED PRESCRIPTION NEBULIZER and supplies FOR HOME USE. DX: J45.30, J45.90. Length of need is life. This is a medically necessary devise for management of patients lung disease. Current machine recently stopped working. While trying to use it started to smoke and stopped. Problem List As Of Date 11/25/2024 Noted Resolved Acquired hypothyroidism [E03.9] 11/29/2005 Mixed hyperlipidemia [E78.2] 11/29/2005 Spinal stenosis, unspecified region other than *03/02/2006 RSD (reflex sympathetic dystrophy) [G90.50] Mitral valve disorders(424.0) [I05.9] Abdominal pain, unspecified site [R10.9] 01/22/2007 09/10/2013 Neck pain [M54.2] 01/27/2011 Cellulitis [L03.90] 06/21/2011 06/08/2014 Neutropenia, drug-induced (HCC) [D70.2] 08/11/2011 Mild persistent asthma [J45.30] 09/07/2011 Plantar fasciitis [M72.2] 11/24/2013 Wrist pain [M25.539] 11/24/2013 06/08/2014 Sebaceous cyst [L72.3] 01/20/2014 Ganglion and cyst of synovium, tendon and bursa*06/23/2014 Trigger ring finger of right hand [M65.341] 06/23/2014 Fatty liver [K76.0] 04/19/2016 Metabolic syndrome [E88.810] 04/19/2016 Gastroesophageal reflux disease without esophag*08/21/2016 Diverticulosis of large intestine [K57.30] Internal hemorrhoids without mention of complic* History of detached retina repair [Z98.890, Z86*12/20/2016 Cataracts, bilateral [H26.9] 12/20/2016 Well adult exam [Z00.00] 12/20/2016 Elevated hemoglobin A1c [R73.09] 09/10/2017 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, right (HCC) [C50.91*10/05/2017 Right-sided chest wall pain [R07.89] 10/05/2017 Class 1 obesity due to excess calories without *12/31/2017 10/17/2023 Mass of left lower leg [R22.42] 07/03/2018 Ex-smoker [Z87.891] History of skin cancer [Z85.828] History of colonic polyps [Z86.0100] 01/06/2019 Vitamin D deficiency [E55.9] 09/15/2019 Irritable bowel syndrome with both constipation*07/28/2020 Bilateral carotid artery stenosis [I65.23] 07/13/[address] [Z78.9] 0 (more content not included)... Normal [facility] CNOVon 11-21-2024 CNOV Office Visit (UCWSTR ) MONTSERRAT AGUAYO ([id number]) 1950 F Date Time Provider Department 11/21/24 9:30 AM LIAM GONZALES UCWSTR During your visit today, we recorded the following information about you: Temperature Pulse Respiration Blood pressure 97.1 degrees 78/minute 18/minute 112/68 Weight 92 kg Liam Gonzales APRN.CNP 11/21/2024 10:05 AM Signed Subjective HPI Nontoxic-appearing 74-year-old female presents urgent care chief complaint cough body aches chills chest congestion. Duration of symptoms 3 to 4 days. Associated symptoms listed above. Presents today for evaluation. No throat symptoms today is productive cough. States has been using rescue inhaler much more frequently. OTC medications acetaminophen. This is helped with symptom management. Denies any chest pain or hemoptysis. No pleuritic pain. No high fevers. Past medical history prescription medications allergies reviewed. .Patient presents with: Cough: Chest congestion, sneezing, runny nose, sore throat, productive cough, yellow mucous, wheeze and rattling in chest, tightness in chest x 3 days PAST MEDICAL HISTORY Diagnosis Date Acquired hypothyroidism 11/29/2005 Bilateral carotid artery stenosis 07/13/2021 US: 06/2021: Stephen 20-40% Breast cancer (HCC) 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, right (HCC) 10/05/2017 Cataracts, bilateral 12/20/2016 Some relation to steroids with her asthma. 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 Incomplete tear of left rotator cuff 04/16/2023 Internal hemorrhoids without mention of complication Irritable bowel syndrome with both constipation and diarrhea 07/28/2020 Labral tear of long head of left biceps tendon 04/16/2023 Lichen sclerosus Living will in place 01/04/2022 DPA: Deshawn () Mass of left lower leg 07/03/2018 Benign w/u Metabolic syndrome 04/19/2016 Mild persistent asthma (HCC) 09/07/2011 Mitral valve disorders(424.0) Mixed hyperlipidemia 11/29/2005 Neural foraminal stenosis of cervical spine 03/21/2022 Mod-sever on the left Neutropenia, drug-induced 08/11/2011 Nonrheumatic aortic valve stenosis 06/13/2024 Seeing Cardio: Dr. Colon Obesity Over weight 10/17/2023 Plantar fasciitis 11/24/2013 Primary insomnia 07/06/2021 Right-sided chest wall pain 10/05/2017 Secondary to breast cancer radiation. RSD (reflex sympathetic dystrophy) Sebaceous cyst 01/20/2014 Spinal stenosis, unspecified region other than cervical 03/02/2006 Tear of left glenoid labrum 04/16/2023 Trigger ring finger of right hand 06/23/2014 Vitamin D deficiency 09/15/2019 PAST SURGICAL HISTORY Procedure Laterality Date ADENOIDECTOMY PRIMARY Adenoidectomy BREAST BIOPSY CORE 04/11/2011 right breast 2:00, 4:00 and 10:00 BREAST BIOPSY INCISIONAL 14 years ago right and left breast- benign BREAST RECONSTRUC W FREE FLAP 12/13/2012 bilateral breast BREAST RECONSTRUC W TISS EXPANDR 05/25/2011 right breast with elevation of the serratus flap CARDIAC CATH 03/20/2017 normal, by Dr. Colvin COLONOSCOPY 01/03/2024 repeat 3 years COLONOSCOPY FLX DX W/COLLJ SPEC WHEN PFRMD 04/08/2007 COLONOSCOPY FLX DX W/COLLJ SPEC WHEN PFRMD N/A 09/06/2016 MAC COLONOSCOPY FLX DX W/COLLJ SPEC WHEN PFRMD 02/10/2019 Colonoscopy INSJ TUNNELED CTR VAD W/SUBQ PORT AGE 5 YR/> 07/06/2011 left IJ MASTECTOMY, SIMPLE, COMPLETE 05/25/2011 right breast skin-sparing with SLND/level 1 LND MASTECTOMY, SIMPLE, COMPLETE 12/13/2012 prophylactic left breast PAST SURGICAL HISTORY OF squamous cell skin ca nose, lips, face PAST SURGICAL HISTORY OF 1972 removal of sweat glands (bilateral axilla (right x 2)and groin) PAST SURGICAL HISTORY OF 03/06/2016 removal of polyp at [facility] [employer] COVID-19 VACCINE, AGE 12+ YR (PURPLE TOP) 09/11/2020 first vaccine REM LESION TRUNK,ARM, LEG <0.5 CM 01/24/2014 Exc. deyanira cyst left inframammary REPAIR ROTATOR CUFF,ACUTE Left 07/02/2023 RMVL MOISES CTR VAD W/SUBQ PORT/BUHR MILL OPERATOR CTR/PRPH INSJ 01/18/2012 Removal left IJ port RPR COMPLEX RETINA DETACH VITRECT ANDMEMBRANE PEEL 09/2014 left retina SIGMOIDOSCOPY FLX DX W/COLLJ SPEC BR/WA IF PFRMD 01/27/2002 Sigmoidoscopy TONSILLECTOMY PRIMARY/SECONDARY Tonsillectomy ALLERGIES Typhoid Vaccine, Adhesive Tape (Rosins), Cats, Diclofenac, Dogs, Dust, Meloxicam, Mold, and Tegretol [Carbamazepine An (more content not included)... 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 Montserrat is a 74 year old who presents for an annual gynecologic exam without complaints. History of mastectomy. History of breast cancer. History of LS, controlled with Clobetasol. Postmenopausal: Yes since age 54. Denies bleeding or pelvic pain. HRT use: No. Last pap smear: 09/30/2020 normal with negative HPV History of abnormal pap: No Last mammogram: 01/16/2024 normal with follow up in one year. History of abnormal mammogram: Yes , hx of breast cancer OB History Gravida2 Para2 Term2 Preterm0 AB0 Living2 SAB0 IAB0 Ectopic0 Multiple0 Live Births0 Comment: menarche age 17; afb 37; natural menopause age 60 2 vaginal deliveries Box [employer] History LMP: 01/06/2009, Postmenopausal Age at Menarche: Age at First : Age at Menopause: Box Car Bracer History Comments: Sexual Activity: Not Currently; Male; prostate cancer Contraception: No contraception data on record PAST MEDICAL HISTORY Diagnosis Date Acquired hypothyroidism 11/29/2005 Bilateral carotid artery stenosis 07/13/2021 US: 06/2021: Stephen 20-40% 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, right (HCC) 10/05/2017 Cataracts, bilateral 12/20/2016 Some relation to steroids with her asthma. 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 Incomplete tear of left rotator cuff 04/16/2023 Internal hemorrhoids without mention of complication Irritable bowel syndrome with both constipation and diarrhea 07/28/2020 Labral tear of long head of left biceps tendon 04/16/2023 Lichen sclerosus Living will in place 01/04/2022 DPA: Deshawn () Mass of left lower leg 07/03/2018 Benign w/u Metabolic syndrome 04/19/2016 Mild persistent asthma (HCC) 09/07/2011 Mitral valve disorders(424.0) Mixed hyperlipidemia 11/29/2005 Neural foraminal stenosis of cervical spine 03/21/2022 Mod-sever on the left Neutropenia, drug-induced 08/11/2011 Nonrheumatic aortic valve stenosis 06/13/2024 Seeing Cardio: Dr. Colon Obesity Over weight 10/17/2023 Plantar fasciitis 11/24/2013 Primary insomnia 07/06/2021 Right-sided chest wall pain 10/05/2017 Secondary to breast cancer radiation. RSD (reflex sympathetic dystrophy) Sebaceous cyst 01/20/2014 Spinal stenosis, unspecified region other than cervical 03/02/2006 Tear of left glenoid labrum 04/16/2023 Trigger ring finger of right hand 06/23/2014 Vitamin D deficiency 09/15/2019 PAST SURGICAL HISTORY Procedure Laterality Date ADENOIDECTOMY PRIMARY Adenoidectomy BREAST BIOPSY CORE 04/11/2011 right breast 2:00, 4:00 and 10:00 BREAST BIOPSY INCISIONAL 14 years ago right and left breast- benign BREAST RECONSTRUC W FREE FLAP 12/13/2012 bilateral breast BREAST RECONSTRUC W TISS EXPANDR 05/25/2011 right breast with elevation of the serratus flap CARDIAC CATH 03/20/2017 normal, by Dr. Colvin COLONOSCOPY 01/03/2024 repeat 3 years COLONOSCOPY FLX DX W/COLLJ SPEC WHEN PFRMD 04/08/2007 COLONOSCOPY FLX DX W/COLLJ SPEC WHEN PFRMD N/A 09/06/2016 MAC COLONOSCOPY FLX DX W/COLLJ SPEC WHEN PFRMD 02/10/2019 Colonoscopy INSJ TUNNELED CTR VAD W/SUBQ PORT AGE 5 YR/> 07/06/2011 left IJ MASTECTOMY, SIMPLE, COMPLETE 05/25/2011 right breast skin-sparing with SLND/level 1 LND MASTECTOMY, SIMPLE, COMPLETE 12/13/2012 prophylactic left breast PAST SURGICAL HISTORY OF squamous cell skin ca nose, lips, face PAST SURGICAL HISTORY OF 1972 removal of sweat glands (bilateral axilla (right x 2)and groin) PAST SURGICAL HISTORY OF 03/06/2016 removal of polyp at [facility] [employer] COVID-19 VACCINE, AGE 12+ YR (PURPLE TOP) 09/11/2020 first vaccine REM LESION TRUNK,ARM, LEG <0.5 CM 01/24/2014 Exc. deyanira cyst left inframammary REPAIR ROTATOR CUFF,ACUTE Left 07/02/2023 RMVL MOISES CTR VAD W/SUBQ PORT/BUHR MILL OPERATOR CTR/PRPH INSJ 01/18/2012 Removal left IJ port RPR COMPLEX RETINA DETACH VITRECT ANDMEMBRANE PEEL 09/2014 left retina SIGMOIDOSCOPY FLX DX W/COLLJ SPEC BR/WA IF PFRMD 01/27/2002 Sigmoidoscopy TONSILLECTOMY PRIMARY/SECONDARY Tonsillectomy FAMILY HISTORY Problem (more content not included)... Normal [facility] CNOVon 10-29-2024 CNOV Office Visit (FAMPWS ) MONTSERRAT AGUAYO ([id number]) 1950 F Date Time Provider Department 10/29/24 8:40 AM LIAM WILKINS During your visit today, we recorded the following information about you: Pulse Respiration Blood pressure Weight 64/minute 16/minute 118/72 91.6 kg Height 1.727 m Liam Wilkins MD 10/29/2024 9:34 AM Signed Montserrat Aguayo is a 74 year old female here for a Medicare wellness visit. Medicare Health Risk Assessment General Health Good Exercise: Minutes/Day 30 min Exercise: Days/Week 4 days Alcohol: Daily Use declined Alcohol: Drinks/Day 3 or 4 Alcohol: 6 or more drinks Never Feel off balance No Concerns: Teeth/Dentures No Concerns: Sexual function No Troubled by feelings Anxious; Stressed; Angry Frequency: Eating healthy diet Several days ADLs requiring help None of the above Safety precautions in home/vehicle No Smoke, vape, chews tobacco No Difficulty hearing No Difficulty seeing No Current Providers Specialists: I have reviewed specialist-related care of the patient in the medical record. Current care team: Patient Care Team: Liam Wilkins MD as PCP - General (Family Medicine) Jojo Anderson APRN.CNP as Banner Painter (Family Medicine) Obdulia Rowley PA-C as Banner Painter (Family Medicine) Medical/Family history review Reviewed and updated problem list, medical/surgical/family /social history, medications, and allergies. Opioid use review Opioid Medications (last 90 days) No data to display Anxiety/Depression screening PHQ-2 Score: 0 (Lower risk for depression) Recommendation: no further intervention at this time Cognitive screening Score: 4 Cognitive screening reviewed and No further action needed (score 3-5). Functional Observation Was the patient's Timed Up AND Go test unsteady or >= 12 seconds? No Advance Care Planning Surrogate decision maker documented and/or advance directives scanned in chart Measurements BP 118/72 Pulse 64 Resp 16 Ht 172.7 cm (5' 8) Wt 91.6 kg (202 lb) LMP 01/06/2009 BMI 30.71 kg/m? Vision Screening: Follows with optometry/ophthalmology Assessment/Plan See below Chief Complaint Patient presents with: Medicare Wellness Exam HPI Montserrat Aguayo is a 74 year old female who presents here today for Chronic Medical Conditions. and Medicare Annual Visit. Patient is here today with hx of Hypothyroidism, elevated A1c, GERD, hyperlipidemia, RSD, Vit D def, mild persistent asthma, Hx of breast cancer on the right side, obisity as well as those reviewed and addressed below Patient Ophthalmology last visit 08/2024 Patient sees COSMETIC MANAGER next visit 10/2024 patient has [place] having increased stress with family and work at the [employer]. Past medical history, appointments, medications, allergies reviewed. Previous Medical History PAST MEDICAL HISTORY Diagnosis Date Acquired hypothyroidism 11/29/2005 Bilateral carotid artery stenosis 07/13/2021 US: 06/2021: Stephen 20-40% 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, right (HCC) 10/05/2017 Cataracts, bilateral 12/20/2016 Some relation to steroids with her asthma. 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 Incomplete tear of left rotator cuff 04/16/2023 Internal hemorrhoids without mention of complication Irritable bowel syndrome with both constipation and diarrhea 07/28/2020 Labral tear of long head of left biceps tendon 04/16/2023 Lichen sclerosus Living will in place 01/04/2022 DPA: Deshawn () Mass of left lower leg 07/03/2018 Benign w/u Metabolic syndrome 04/19/2016 Mild persistent asthma 09/07/2011 Mitral valve disorders(424.0) Mixed hyperlipidemia 11/29/2005 Neural foraminal stenosis of cervical spine 03/21/2022 Mod-sever on the left Neutropenia, drug-induced (HCC) 08/11/2011 Nonrheumatic aortic valve stenosis 06/13/2024 Seeing Cardio: Dr. Colon Obesity Over weight 10/17/2023 Plantar fasciitis 11/24/2013 Primary insomnia 07/06/2021 Right-sided chest wall pain 10/05/2017 Secondary to breast cancer radiation. RSD (reflex sympathetic dystrophy) Sebaceous cyst 01/20/2014 Spinal stenosis, unspecified region other than cervical 03/02/2006 Tear of left glenoid labrum 04/16/2023 Trigger ring finger of right hand 06/23/2014 Vitamin D deficiency 09/15/2019 Previous Surgical History PAST SURGICAL HI (more content not included)... Normal [facility] Urinalysis complete panel (U )on 10-28-2024 Bacteria LM.HPF (Urine sed) [#/Area] Negative Normal Negative [facility] Comment on above: Order Comment: Speci men Type: URINE SPECIMENOrdering Facility: [facility] Address: [address] [place] [address] Performed By: #### 2 4356-8 ####[facility] LABCLIA [id number] [place] [address] [place] Bilirubin Ql (U) Negative Normal Negative [facility] Comment on above: Order Comment: Speci men Type: URINE SPECIMENOrdering Facility: [facility] Address: [address] [place] [address] Performed By: #### 2 4356-8 ####[facility] LABCLIA [id number] [place] [address] [place] Clarity (Unsp spec) Clear Normal Clear [facility] Comment on above: Order Comment: Speci men Type: URINE SPECIMENOrdering Facility: [facility] Address: [address] [place] [address] Performed By: #### 2 4356-8 ####[facility] LABCLIA [id number] [place] [address] [place] Color (U) Yellow Normal Yellow [facility] Comment on above: Order Comment: Speci men Type: URINE SPECIMENOrdering Facility: [facility] Address: [address] [place] [address] Performed By: #### 2 4356-8 ####[facility] LABCLIA [id number] [address], [facility] [place] Epithelial cells LM.HPF (Urine sed) [#/Area] None Seen Normal [facility] Comment on above: Order Comment: Speci men Type: URINE SPECIMENOrdering Facility: [facility] Address: [address] [place] [address] Performed By: #### 2 4356-8 ####[facility] LABCLIA [id number] [address] STATES OF [facility] Glucose Test strip (U) [Mass/Vol] Negative Normal Negative [facility] Comment on above: Order Comment: Speci men Type: URINE SPECIMENOrdering Facility: [facility] Address: [address] [place] [address] Performed By: #### 2 4356-8 ####[facility]CLIA [id number] [address], [facility] [place] Hemoglobin Ql (U) Negative Normal Negative [facility] Comment on above: Order Comment: Speci men Type: URINE SPECIMENOrdering Facility: [facility] Address: [address] [place] [address] Performed By: #### 2 4356-8 ####[facility] LABCLIA [id number] [facility] [address] [place] [address] [place] Hyaline casts (Urine sed) [#/Area] 0 /[LPF] Normal 0 /LPF [facility] Comment on above: Order Comment: Speci men Type: URINE SPECIMENOrdering Facility: [facility] Address: [address] [place], [place] [id number] Performed By: #### 2 4356-8 ####[facility] LABCLIA [id number] [place] [id number] [place] Ketones Ql (U) Negative Normal Negative [facility] Comment on above: Order Comment: Speci men Type: URINE SPECIMENOrdering Facility: [facility] Address: [address] [place] [address] Performed By: #### 2 4356-8 ####[facility] LABCLIA [id number] [place] [address] [place] Leukocyte esterase Test strip Ql (U) Negative Normal Negative [facility] Comment on above: Order Comment: Speci men Type: URINE SPECIMENOrdering Facility: [facility] Address: [address] [place] [address] Performed By: #### 2 4356-8 ####[facility] LABCLIA [id number] [place] [address] [place] Nitrite Ql (U) Negative Normal Negative [facility] Comment on above: Order Comment: Speci men Type: URINE SPECIMENOrdering Facility: [facility] Address: [address] [place] [address] Performed By: #### 2 4356-8 ####[facility] LABCLIA [id number] [place] [address] [place] pH (U) 5.5 [pH] Normal <8.5 [facility] Comment on above: Order Comment: Speci men Type: URINE SPECIMENOrdering Facility: [facility] Address: [address] [place] [address] Performed By: #### 2 4356-8 ####[facility] LABCLIA [id number] [place] [address] [place] Protein (U) [Mass/Vol] Negative Normal Negative [facility] Comment on above: Order Comment: Speci men Type: URINE SPECIMENOrdering Facility: [facility] Address: [address] [place] [address] Performed By: #### 2 4356-8 ####[facility] LABCLIA [id number] [place] [address] [place] RBC LM.HPF (Urine sed) [#/Area] 0-2 /HPF Normal 0-2 /HPF [facility] Comment on above: Order Comment: Speci men Type: URINE SPECIMENOrdering Facility: [facility] Address: [address] [place] [address] Performed By: #### 2 4356-8 ####[facility] [id number] [place] [address] [place] Specific gravity (U) [Rel density] 1.014 Normal 1.005-1.030 [facility] Comment on above: Order Comment: Speci men Type: URINE SPECIMENOrdering Facility: [facility] Address: [address] [place] [address] Performed By: #### 2 4356-8 ####[facility] [id number] [address] [place] Urobilinogen Ql (U) 0.2 EU/dL Normal 0.2-1.0 EU/dL Cl [facility] Comment on above: Order Comment: Speci men Type: URINE SPECIMENOrdering Facility: [facility] Address: [address] [place] [address] Performed By: #### 2 4356-8 ####[facility] [id number] [place] [address] [place] WBC LM.HPF (Urine sed) [#/Area] 0-5 /HPF Normal 0-5 /HPF [facility] Comment on above: Order Comment: Speci men Type: URINE SPECIMENOrdering Facility: [facility] Address: [address] [place] [address] Performed By: #### 2 4356-8 ####[facility] [id number] [place] [address] [place] 25(OH)D3 SerPl-Ginger 2024 25-hydroxyvitamin D3 [Mass/Vol] 49.2 ng/mL Normal 31.0-80.0 [facility] Comment on above: Order Comment: Speci men Type: BLOOD SPECIMENOrdering Facility: [facility] Address: [address] [place] [address] Result Comment: Clas sification of 25 [place] Vitamin D status: Deficiency/Insufficiency: < or = 30 ng/ml. Sufficiency/Optimal Levels: 31-80 ng/mL Toxicity: > 100 ng/mL. Test performed by chemiluminescent immunoassay. Performed By: #### 1 989-3 ####[facility] LABIA [id number] [place] [address] [place] CBC W Auto Differential pane l (Bld)on 10-27-2024 Basophils (Bld) [#/Vol] 0.07 10*3/uL Normal <0.11 [facility] Comment on above: Order Comment: Speci men Type: BLOOD SPECIMENOrdering Facility: [facility] Address: [address] [place] [address] Performed By: #### 5 7021-8 ####[facility]CLIA [id number] [place] [address] [place] Basophils/100 WBC (Bld) 1.1 % Normal [facility] Comment on above: Order Comment: Speci men Type: BLOOD SPECIMENOrdering Facility: [facility] Address: [address] [place] [address] Performed By: #### 5 7021-8 ####[facility] LABCLIA [id number] [place] [id number] [place] Differential cell count method Nom (Bld) Auto Normal [facility] Comment on above: Order Comment: Speci men Type: BLOOD SPECIMENOrdering Facility: [facility] Address: [address] [place] [address] Performed By: #### 5 7021-8 ####[facility] LABCLIA [id number] [place] [address] [place] Eosinophils (Bld) [#/Vol] 0.20 10*3/uL Normal <0.46 [facility] Comment on above: Order Comment: Speci men Type: BLOOD SPECIMENOrdering Facility: [facility] Address: [address] [place] [address] Performed By: #### 5 7021-8 ####[facility] LABCLIA [id number] [address], [place] [address] [place] Eosinophils/100 WBC (Bld) 3.0 % Normal [facility] Comment on above: Order Comment: Speci men Type: BLOOD SPECIMENOrdering Facility: [facility] Address: [address] [place] [address] Performed By: #### 5 7021-8 ####[facility] LABCLIA [id number] [address], [place] [address] [place] Erythrocyte distribution width (RBC) [Ratio] 13.6 % Normal 11.5-15.0 [facility] Comment on above: Order Comment: Speci men Type: BLOOD SPECIMENOrdering Facility: [facility] Address: [address] [place] [address] Performed By: #### 5 7021-8 ####[facility] LABCLIA [id number] [address], [place] [address] [place] Hematocrit (Bld) [Volume fraction] 41.0 % Normal 36.0-46.0 [facility] Comment on above: Order Comment: Speci men Type: BLOOD SPECIMENOrdering Facility: [facility] Address: [address] [place] [address] Performed By: #### 5 7021-8 ####[facility] LABCLIA [id number] [place] [id number] [place] Hemoglobin (Bld) [Mass/Vol] 13.2 g/dL Normal 11.5-15.5 [facility] Comment on above: Order Comment: Speci men Type: BLOOD SPECIMENOrdering Facility: [facility] Address: [address] [place] [address] Performed By: #### 5 7021-8 ####[facility] LABCLIA [id number] [place] [address] [place] Immature granulocytes (Bld) [#/Vol] 10*3/uL Normal <0.10 [facility] Comment on above: Order Comment: Speci men Type: BLOOD SPECIMENOrdering Facility: [facility] Address: [address] [place] [address] Performed By: #### 5 7021-8 ####[facility] LABCLIA [id number] [place] [address] [place] Immature granulocytes/100 WBC (Bld) 0.3 % Normal [facility] Comment on above: Order Comment: Speci men Type: BLOOD SPECIMENOrdering Facility: [facility] Address: [address] [place] [address] Performed By: #### 5 7021-8 ####[facility] LABCLIA [id number] [place] [address] [place] Lymphocytes (Bld) [#/Vol] 1.90 10*3/uL Normal 1.00-4.00 [facility] Comment on above: Order Comment: Speci men Type: BLOOD SPECIMENOrdering Facility: [facility] Address: [address] [place] [address] Performed By: #### 5 7021-8 ####[facility] LABCLIA [id number] [place] [id number] [place] Lymphocytes/100 WBC (Bld) 29.0 % Normal [facility] Comment on above: Order Comment: Speci men Type: BLOOD SPECIMENOrdering Facility: [facility] Address: [address] [place] [address] Performed By: #### 5 7021-8 ####[facility] LABCLIA [id number] [place] [address] [place] MCH (RBC) [Entitic mass] 29.7 pg Normal 26.0-34.0 [facility] Comment on above: Order Comment: Speci men Type: BLOOD SPECIMENOrdering Facility: [facility] Address: [address] [place] [address] Performed By: #### 5 7021-8 ####[facility] LABIA [id number] [address] [place] MCHC (RBC) [Mass/Vol] 32.2 g/dL Normal 30.5-36.0 [facility] Comment on above: Order Comment: Speci men Type: BLOOD SPECIMENOrdering Facility: [facility] Address: [address] [place] [address] Performed By: #### 5 7021-8 ####[facility] LABCLIA [id number] [place] [address] [place] MCV (RBC) [Entitic vol] 92.1 fL Normal 80.0-100.0 [facility] Comment on above: Order Comment: Speci men Type: BLOOD SPECIMENOrdering Facility: [facility] Address: [address] [place] [address] Performed By: #### 5 7021-8 ####[facility] LABIA [id number] [place] [address] [place] Monocytes (Bld) [#/Vol] 0.54 10*3/uL Normal <0.87 [facility] Comment on above: Order Comment: Speci men Type: BLOOD SPECIMENOrdering Facility: [facility] Address: [address] [place] [address] Performed By: #### 5 7021-8 ####[facility] LABCLIA [id number] [address] [place] Monocytes/100 WBC (Bld) 8.2 % Normal [facility] Comment on above: Order Comment: Speci men Type: BLOOD SPECIMENOrdering Facility: [facility] Address: [address] [place] [address] Performed By: #### 5 7021-8 ####[facility] LABCLIA [id number] [address] [address] [place] Neutrophils (Bld) [#/Vol] 3.83 10*3/uL Normal 1.45-7.50 [facility] Comment on above: Order Comment: Speci men Type: BLOOD SPECIMENOrdering Facility: [facility] Address: [address] [place] [address] Performed By: #### 5 7021-8 ####[facility] LABCLIA [id number] [place] [address] [place] Neutrophils/100 WBC (Bld) 58.4 % Normal [facility] Comment on above: Order Comment: Speci men Type: BLOOD SPECIMENOrdering Facility: [facility] Address: [address] [place] [address] Performed By: #### 5 7021-8 ####[facility] LABCLIA [id number] [place] [address] [place] Nucleated RBC (Bld) [#/Vol] 10*3/uL Normal <0.01 [facility] Comment on above: Order Comment: Speci men Type: BLOOD SPECIMENOrdering Facility: [facility] Address: [address] [place] [address] Performed By: #### 5 7021-8 ####[facility] LABCLIA [id number] [place] [id number] [place] Nucleated RBC/100 WBC (Bld) [Ratio] 0.0 /100 WBC Normal [facility] Comment on above: Order Comment: Speci men Type: BLOOD SPECIMENOrdering Facility: [facility] Address: [address] [place] [address] Performed By: #### 5 7021-8 ####[facility] LABCLIA [id number] [address] [place] [address] [place] Platelet mean volume (Bld) [Entitic vol] 10.5 fL Normal 9.0-12.7 [facility] Comment on above: Order Comment: Speci men Type: BLOOD SPECIMENOrdering Facility: [facility] Address: [address] [place] [address] Performed By: #### 5 7021-8 ####[facility] LABIA [id number] [address], [facility]95 [place] Platelets (Bld) [#/Vol] 303 10*3/uL Normal 150-400 [facility] Comment on above: Order Comment: Speci men Type: BLOOD SPECIMENOrdering Facility: [facility] Address: [address] [place] [address] Performed By: #### 5 7021-8 ####[facility] LABIA [id number] [place] [address] [place] RBC (Bld) [#/Vol] 4.45 10*6/uL Normal 3.90-5.20 [facility] Comment on above: Order Comment: Speci men Type: BLOOD SPECIMENOrdering Facility: [facility] Address: [address] [place] [address] Performed By: #### 5 7021-8 ####[facility] LABIA [id number] [place] [id number] [place] WBC (Bld) [#/Vol] 6.56 10*3/uL Normal 3.70-11.00 [facility] Comment on above: Order Comment: Speci men Type: BLOOD SPECIMENOrdering Facility: [facility] Address: [address] [place] [address] Performed By: #### 5 7021-8 ####[facility] LABIA [id number] [address], [facility]95 [place] Comprehensive metabolic 2000 panelon 10-27-2024 Albumin [Mass/Vol] 4.7 g/dL Normal 3.9-4.9 [facility] Comment on above: Order Comment: Speci men Type: BLOOD SPECIMENOrdering Facility: [facility] Address: [address] [place] [address] Performed By: #### 3 016-3, LIPNF, 36352-9 ####[facility] LABCLIA [id number] [place] [address] [place] ALP [Catalytic activity/Vol] 86 U/L Normal 34-123 [facility] Comment on above: Order Comment: Speci men Type: BLOOD SPECIMENOrdering Facility: [facility] Address: [address] [place] [address] Performed By: #### 3 016-3, LIPNF, 06095-2 ####[facility] LABCLIA [id number] [place] [address] [place] ALT [Catalytic activity/Vol] 32 U/L Normal 7-38 [facility] Comment on above: Order Comment: Speci men Type: BLOOD SPECIMENOrdering Facility: [facility] Address: [address] [place] [address] Performed By: #### 3 016-3, LIPNF, 44632-1 ####[facility] LABCLIA [id number] [place] [address] [place] Anion gap [Moles/Vol] 16 mmol/L High 8-15 [facility] Comment on above: Order Comment: Speci men Type: BLOOD SPECIMENOrdering Facility: [facility] Address: [address] [place] [address] Performed By: #### 3 016-3, LIPNF, 59661-9 ####[facility] LABCLIA [id number] [place] [id number] [place] AST [Catalytic activity/Vol] 33 U/L Normal 13-35 [facility] Comment on above: Order Comment: Speci men Type: BLOOD SPECIMENOrdering Facility: [facility] Address: [address] [place], [place] [address] Performed By: #### 3 016-3, LIPNF, ####[facility] LABCLIA [id number] [address] [address] [place] Bilirubin [Mass/Vol] 0.4 mg/dL Normal 0.2-1.3 [facility] Comment on above: Order Comment: Speci men Type: BLOOD SPECIMENOrdering Facility: [facility] Address: [address] [place], [place] [address] Performed By: #### 3 016-3, LIPNF, ####[facility] LABCLIA [id number] [place] [address] [place] Calcium [Mass/Vol] 10.0 mg/dL Normal 8.5-10.2 [facility] Comment on above: Order Comment: Speci men Type: BLOOD SPECIMENOrdering Facility: [facility] Address: [address] [place] [address] Performed By: #### 3 016-3, LIPNF, ####[facility] LABCLIA [id number] [place] [address] [place] Chloride [Moles/Vol] 103 mmol/L Normal 98-107 [facility] Comment on above: Order Comment: Speci men Type: BLOOD SPECIMENOrdering Facility: [facility] Address: [address] [place], [place] [address] Performed By: #### 3 016-3, LIPNF, 61056-4 ####[facility] LABCLIA [id number] [place] [id number] [place] CO2 [Moles/Vol] 21 mmol/L Low 22-30 [facility] Comment on above: Order Comment: Speci men Type: BLOOD SPECIMENOrdering Facility: [facility] Address: [address] [place] [address] Performed By: #### 3 016-3, LIPTHELMA, 62257-2 ####[facility] LABIA [id number] [place] [id number] [place] Creatinine [Mass/Vol] 0.80 mg/dL Normal 0.58-0.96 [facility] Comment on above: Order Comment: Speci men Type: BLOOD SPECIMENOrdering Facility: [facility] Address: [address] [place] [address] Performed By: #### 3 016-3, LIPTHELMA, 11891-1 ####[facility] LABIA [id number] [place] [address] [place] Creatinine and Glomerular filtration rate.predicted panel (S/P/Bld) 78 mL/min/1.73m??? Normal >=60 [facility] Comment on above: Order Comment: [facility] Type: BLOOD SPECIMENOrdering Facility: [facility] Address: [address] [place] [address] Result Comment: Yvette mated Glomerular Filtration Rate (eGFR) is calculated using the 2020 CKD-EPI creatinine equation. This equation utilizes serum creatinine, sex, and age as parameters. The creatinine assay has traceable calibration to isotope dilution-mass spectrometry. Refer to KDIGO guidelines for clinical interpretation. In patients with unstable renal function, e.g. those with acute kidney injury, the eGFR may not accurately reflect actual GFR. Performed By: #### 3 016-3, DANIEL, 93379-9 ####[facility] LABIA [id number] [place] [id number] [place] Glucose [Mass/Vol] 90 mg/dL Normal 74-99 [facility] Comment on above: Order Comment: Speci men Type: BLOOD SPECIMENOrdering Facility: [facility] Address: [address] [place] [address] Result Comment: The [place] Diabetes Association (ADA) provides guidance for cutoff values for fasting glucose and random glucose. The ADA defines fasting as no caloric intake for at least 8 hours. Fasting plasma glucose results between 100 to 125 mg/dL indicate increased risk for diabetes (prediabetes). Fasting plasma glucose results greater than or equal to 126 mg/dL meet the criteria for diagnosis of diabetes. In the absence of unequivocal hyperglycemia, results should be confirmed by repeat testing. In a patient with classic symptoms of hyperglycemia or hyperglycemic crisis, random plasma glucose results greater than or equal to 200 mg/dL meet the criteria for diagnosis of diabetes. Reference: Standards of Medical Care in Diabetes 2016, [place] [employer] Association. Diabetes Care. 2016.39(Suppl 1). Performed By: #### 3 016-3, LIPNF, ####[facility] LABCLIA [id number] [place] [address] [place] Potassium [Moles/Vol] 5.0 mmol/L Normal 3.7-5.1 [facility] Comment on above: Order Comment: Speci men Type: BLOOD SPECIMENOrdering Facility: [facility] Address: [address] [place] [address] Performed By: #### 3 016-3, LIPNF, 44381-7 ####[facility] LABIA [id number] [place] [address] [place] Protein [Mass/Vol] 7.4 g/dL Normal 6.3-8.0 [facility] Comment on above: Order Comment: Speci men Type: BLOOD SPECIMENOrdering Facility: [facility] Address: [address] [place] [address] Performed By: #### 3 016-3, LIPNF, 86477-5 ####[facility] LABIA [id number] [place] [address] [place] Sodium [Moles/Vol] 140 mmol/L Normal 136-144 [facility] Comment on above: Order Comment: Speci men Type: BLOOD SPECIMENOrdering Facility: [facility] Address: [address] [place] [address] Performed By: #### 3 016-3, LIPNF, 78411-9 ####[facility] LABCLIA [id number] [place] [id number] [place] Urea nitrogen [Mass/Vol] 14 mg/dL Normal 7-21 [facility] Comment on above: Order Comment: Speci men Type: BLOOD SPECIMENOrdering Facility: [facility] Address: [address] [place] [address] Performed By: #### 3 016-3, LIPNF, 11800-3 ####[facility] LABCLIA [id number] [address], [facility]95 [place] HbA1c (Bld)on 10-27-2024 Average glucose Estimated from glycated hemoglobin (Bld) [Mass/Vol] 126 mg/dL Normal [facility] Comment on above: Order Comment: Sarayi men Type: BLOOD SPECIMENOrdering Facility: [facility] Address: [address] [place] [address] Result Comment: eAG: (Estimated average glucose) is a calculated value from HgbA1c and is operations support representative of the average blood glucose level in the last 2-3 month period. Performed By: #### 5 5454-3 ####[facility] LABCLIA [id number] [address] [place] [address] [place] HbA1c (Bld) [Mass fraction] 6.0 % High 4.3-5.6 [facility] Comment on above: Order Comment: Sarayi men Type: BLOOD SPECIMENOrdering Facility: [facility] Address: [address] [place] [address] Result Comment: [place] Diabetes Association guidelines indicate that patients with HgbA1c in the range 5.7-6.4% are at increased risk for development of diabetes, and intervention by lifestyle modification may be beneficial. HgbA1c greater or equal to 6.5% is considered diagnostic of diabetes. Performed By: #### 5 5454-3 ####[facility] LABCLIA [id number] [facility] [id number] [address] [place] LIPID PANEL, NONFASTINGon Cholesterol [Mass/Vol] 190 mg/dL Normal <200 [facility] Comment on above: Order Comment: Speci men Type: BLOOD SPECIMENOrdering Facility: [facility] Address: [address] [place] [address] Result Comment: <200 mg/dL, Desirable 200-239 mg/dL, Borderline high >239 mg/dL, High Performed By: #### 3 016-3, LIPNF, 86886-1 ####[facility] LABCLIA [id number] [address] [place] HDL CHOLESTEROL, NF 70 mg/dL Normal >39 [facility] Comment on above: Order Comment: Speci men Type: BLOOD SPECIMENOrdering Facility: [facility] Address: [address] [place] [address] Result Comment: 40-5 9 mg/dL, Acceptable >59 mg/dL, High: Negative risk factor for coronary heart disease <40 mg/dL, Low: Positive risk factor for coronary heart disease Performed By: #### 3 016-3, LIPNF, 04267-9 ####[facility] LABCLIA [id number] [address] LDL CHOLESTEROL CALCULATED, NF 90 mg/dL Normal <100 [facility] Comment on above: Order Comment: Speci men Type: BLOOD SPECIMENOrdering Facility: [facility] Address: [address] [place] [address] Result Comment: <100 mg/dL, Optimal 100-129 mg/dL, Near optimal/above optimal 130-159 mg/dL, Borderline high 160-189 mg/dL, High >189 mg/dL, Very high Secondary prevention optimal LDL Cholesterol levels are recommended to be <70 mg/dL LDL cholesterol is calculated using the Nevarez-NIH equation. Performed By: #### 3 016-3, LIPNF, 15629-6 ####[facility] LABCLIA [id number] [place] [id number] [facility] [place] LDL/HDL RATIO, NF 1.29 mg/dL Normal <2.54 [facility] Comment on above: Order Comment: Speci men Type: BLOOD SPECIMENOrdering Facility: [facility] Address: [address] [place] [address] Result Comment: Nora christian: 1. National Cholesterol Education Program ATP III Guideline At-A-Glance Quick Desk Reference: National Heart, Lung, and Blood [place]. National Institutes of Health. 2001: NIH Publication No. 01-3305. 2. An International Atherosclerosis Society position paper: global recommendations for the management of dyslipidemia: executive summary, Atherosclerosis. 2014: 232(2):410-413. Performed By: #### 3 016-3, LIPNF, 50453-5 ####[facility] LABCLIA [id number] [place] [address] [place] NON HDL CHOL, NF 120 mg/dL Normal <130 [facility] Comment on above: Order Comment: Speci men Type: BLOOD SPECIMENOrdering Facility: [facility] Address: [address] [place] [address] Result Comment: <130 mg/dL, Optimal 130-159 mg/dL, Near optimal/above optimal 160-189 mg/dL, Borderline high 190-219 mg/dL, High >219 mg/dL, Very high Secondary prevention optimal non HDL Cholesterol levels are recommended to be <100 mg/dL Performed By: #### 3 016-3, LIPNF, 55148-2 ####[facility] LABCLIA [id number] [address] [place] T CHOL/HDL RATIO NF 2.71 mg/dL Normal <5.10 [facility] Comment on above: Order Comment: Speci men Type: BLOOD SPECIMENOrdering Facility: [facility] Address: [address] [place] [address] Performed By: #### 3 016-3, LIPNF, 34807-0 ####[facility] LABCLIA [id number] [place] [address] [place] TRIGLYCERIDES, NF 177 mg/dL High <150 [facility] Comment on above: Order Comment: Speci men Type: BLOOD SPECIMENOrdering Facility: [facility] Address: [address] [place] [address] Result Comment: <150 mg/dL, Normal 150-199 mg/dL, Borderline high 200-499 mg/dL, High >499 mg/dL, Very high Performed By: #### 3 016-3, LIPTHELMA, 11333-1 ####[facility] LABCLIA [id number] [place] [address] [place] VLDL CHOLESTEROL, NF 28 mg/dL Normal <30 [facility] Comment on above: Order Comment: Speci men Type: BLOOD SPECIMENOrdering Facility: [facility] Address: [address] [place] [address] Performed By: #### 3 016-3, LIPTHELMA, 66663-5 ####[facility] LABIA [id number] [place] [address] [place] TSH SerPl-aCncon 10-27-2024 TSH Qn 1.080 m[IU]/L Normal 0.270-4.200 [facility] Comment on above: Order Comment: Speci men Type: BLOOD SPECIMENOrdering Facility: [facility] Address: [address] [place] [address] Performed By: #### 3 016-3, LIPTHELMA, 89534-5 ####[facility] LABIA [id number] [address] [place] CNOVon 08-15-2024 CNOV Office Visit (ORMDRG ) MONTSERRAT AGUAYO ([id number]) 1950 F Date Time Provider Department 08/15/24 2:30 PM REGINA MCPHERSON During your visit today, we recorded the following information about you: Regina Mcpherson MD 08/15/2024 2:48 PM Signed PAIN EVALUATION 08/15/2024 1433 Pain Location: Shoulder-Left Description: Aching Frequency: Intermittent Comments: last L-shoulder CSI:02/22/24 Encounter Diagnosis ICD-10-CM 1. Left shoulder pain, unspecified chronicity M25.512 2. S/P shoulder surgery Z98.890 Montserrat Aguayo returns for left shoulder injection. Had been doing well but hurting more due to need to sleep on that side. Large Joint Arthro/Inj: L shoulder joint 08/15/2024 2:47 PM The procedure site was prepped in the usual sterile fashion. Site: L shoulder joint Medications: 80 mg triamcinolone acetonide 40 mg/mL Anesthetics: 4 mL bupivacaine (PF) 0.25 % (2.5 mg/mL) Outcome: Tolerated well, no immediate complications Post-injection instructions were reviewed with the patient and the patient voiced understanding of these instructions. Regina Mcpherson MD Shoulder AND Elbow Surgeon Department of Orthopaedic Surgery [facility] Allergies As of Date: 08/15/2024 Noted Allergy Reaction TYPHOID VACCINE 05/12/2005 5 - Intolerance ADHESIVE TAPE (ROSINS) 04/17/2011 14 - Other: See Comments Comments: after 2 days area becomes red and itches CATS 05/12/2005 5 - Intolerance DICLOFENAC 01/04/2016 14 - Other: See Comments Comments: elevated liver enz DOGS 05/12/2005 5 - Intolerance DUST 05/12/2005 5 - Intolerance MELOXICAM 01/10/2016 14 - Other: See Comments Comments: Swollen eyelids MOLD 05/12/2005 5 - Intolerance TEGRETOL (CARBAMAZEPINE ANALOGUES)11/24/2008 5 - Intolerance Comments: blood problem Date Reviewed: 06/16/2024 Reviewed by: Clarisa Solorzano MA - Fully Assessed Reason for Visit: Established Patient [175] Follow Up [171] Primary Visit Diagnosis:Left shoulder pain, unspecified chronicity [M25.512] Other Visit Diagnosis:S/P shoulder surgery [Z98.890] Order(s):Large Joint Arthro/Inj: L shoulder joint [[id number]] Order #: [id number] [] bupivacaine (PF) 0.25 % (2.5 mg/mL) 4 mL injection (SENSORCAINE MPF)Disp: Rfl: [] triamcinolone acetonide 80 mg injection (KeNALog 40)Disp: Rfl: Prescriptions as of 08/15/2024 - metoprolol succinate ER (TOPROL XL) 25 mg 24 hr tablet Take 1 tablet by mouth once daily. - atorvastatin (LIPITOR) 80 mg tablet Take 1 tablet by mouth once daily. - amitriptyline (ELAVIL) 25 mg tablet Take 2 tablets by mouth daily at bedtime. - levothyroxine (SYNTHROID) 100 mcg tablet Take 1 tablet by mouth daily before breakfast. - VENTOLIN HFA 90 mcg/actuation inhaler Inhale 2 Puffs as instructed every 4 hours as needed for wheezing/shortness of breath. - VENTOLIN HFA 90 mcg/actuation inhaler Inhale 2 Puffs as instructed every 4 hours as needed. - clobetasol (TEMOVATE) 0.05 % ointment Apply 1 application to affected area two times a day. TO AFFECTED AREA. - fluticasone-salmeterol (ADVAIR, WIXELA) 250-50 mcg/dose inhaler Inhale 1 Puff as instructed two times a day. - acetaminophen (TYLENOL) 500 mg tablet Take 1,000 mg by mouth at bedtime as needed. - albuterol (PROVENTIL) 2.5 mg /3 mL (0.083 %) nebulizer solution inhale 3 milliliters in nebulizer every 4 hours if needed for wheezing /SHORTNESS OF BREATH. USE OVER 5 -15 MINUTES - COMPOUNDED PRESCRIPTION NEBULIZER and supplies FOR HOME USE. DX: J45.30, J45.90. Length of need is life. This is a medically necessary devise for management of patients lung disease. Current machine recently stopped working. While trying to use it started to smoke and stopped. Problem List As Of Date 08/15/2024 Noted Resolved Acquired hypothyroidism [E03.9] 11/29/2005 Mixed hyperlipidemia [E78.2] 11/29/2005 Spinal stenosis, unspecified region other than *03/02/2006 RSD (reflex sympathetic dystrophy) [G90.50] Mitral valve disorders(424.0) [I05.9] Abdominal pain, unspecified site [R10.9] 01/22/2007 09/10/2013 Neck pain [M54.2] 01/27/2011 Cellulitis [L03.90] 06/21/2011 06/08/2014 Neutropenia, drug-induced (HCC) [D70.2] 08/11/2011 Mild persistent asthma [J45.30] 09/07/2011 Plantar fasciitis [M72.2] 11/24/2013 Wrist pain [M25.539] 11/24/2013 06/08/2014 Sebaceous cyst [L72.3] 01/20/2014 Ganglion and cyst of synovium, tendon and bursa*06/23/2014 Trigger ring finger of right hand [M65.341] 06/23/2014 Fatty liver [K76.0] 04/19/2016 Metabolic syndrome [E88.810] 04/19/2016 Gastroesophageal reflux disease without esophag*08/21/2016 Diverticulosis of large intestine [K57.30] Internal hemorrhoids without mention of complic* History of detached retina repair [Z98.890, Z86*12/20/2016 Cataracts, bilater (more content not included)... Normal [facility] Large Joint Arthro/Inj: L sh oulder jointon 08-15-2024 Regina Mcpherson MD 08/15/2024 2:48 PM Large Joint Arthro/Inj: L shoulder joint 08/15/2024 2:47 PM The procedure site was prepped in the usual sterile fashion. Site: L shoulder joint Medications: 80 mg triamcinolone acetonide 40 mg/mL Anesthetics: 4 mL bupivacaine (PF) 0.25 % (2.5 mg/mL) Outcome: Tolerated well, no immediate complications Post-injection instructions were reviewed with the patient and the patient voiced understanding of these instructions. [facility] [id number] 08-12-2024 [id number] HNO ID: [id number] Author: SHERRY BRUCE PT Service: ? Author Type: Physical Therapist Type: [id number] Filed: 08/12/2024 10:28 Note Text: [facility] Physical Therapy Plan of Care Certification Patient Name: Montserrat Aguayo : 1950 [facility] #: [id number] Date: 08/12/2024 To: Liam Wilkins MD From Therapist: Sherry Bruce PT RE: Patient Certification/ Recertification Your review, approval and electronic signature are required in order to comply with Payor: RUPERT / Plan: BLUE ACCESS PPO / Product Type: PPO / regulations. The identified Physical Therapy PLAN OF CARE for the patient is as follows: R42 Vertigo (primary encounter diagnosis) PLAN OF CARE: Assessment: Montserrat Aguayo presents with diagnosis of vertigo that interferes with bed mobility . The patient presents with impairments in ADL's, independence in exercise, overall function, patient reported outcome measures, and symptom management. Patient did not complete the PROMIS? (Patient Reported Outcome Measures Information System). Prognosis for therapy is Good due to: current objective clinical presentation, good overall health status, acuteness of condition, positive past response to therapy, within-session changes, good support system/ coping skills . The patient will benefit from skilled therapy services to meet the goals established for this plan of care as noted below. Goals for Episode of Care: established 08/12/24 Patient will have negative positional testing for BPPV. Patient will be independent with home exercise program and progression. Patient will return to prior level of function with all activities of daily living with trace reports of dizziness. Patient Goals: resolve vertigo with positional changes Time Frame for Goals and Treatment : 09/23/24 Planned Interventions, Frequency, and Duration: Current Frequency: 1x/week Duration: 6 weeks Total Number of Visits Planned: 6 Planned Treatment Interventions: Therapeutic exercise (10322), Neuromuscular re-education (93886), Manual therapy (04421), Therapeutic activities (99861), Self-retirement management (89395), Gait Training (57572) PLAN FOR NEXT VISIT: pt. to return has needed for BPPV Patient demonstrates good understanding of plan of care and treatment. The above goals and plan of care were discussed and agreed upon by patient/family. For further details regarding this patient refer to the Physical Therapy electronically documented visit dated 08/12/2024. Provider Attestation I have reviewed the treatment plan for Montserrat Aguayo, [facility]# [id number] for the period of 08/12/24 -- 09/23/24, established on 08/12/2024. Signature certifies the need for therapy services. Normal [facility] CNTHERAPYon 08-12-2024 CNTHERAPY OT/PT/Speech Visit (PTWS) MONTSERRAT AGUAYO ([id number]) 1950 F Date Time Provider Department 08/12/24 9:45 AM SHERRY BRUCE PTWS Date Time Provider Department [place] 08/12/2024 9:45 AM [id number] BRUCE PTMOMO Gutierrez Reason for Visit: PT Eval [747] Primary Visit Diagnosis:Vertigo [R42] Allergies As of Date: 08/12/2024 Noted Allergy Reaction TYPHOID VACCINE 05/12/2005 5 - Intolerance ADHESIVE TAPE (ROSINS) 04/17/2011 14 - Other: See Comments Comments: after 2 days area becomes red and itches CATS 05/12/2005 5 - Intolerance DICLOFENAC 01/04/2016 14 - Other: See Comments Comments: elevated liver enz DOGS 05/12/2005 5 - Intolerance DUST 05/12/2005 5 - Intolerance MELOXICAM 01/10/2016 14 - Other: See Comments Comments: Swollen eyelids MOLD 05/12/2005 5 - Intolerance TEGRETOL (CARBAMAZEPINE ANALOGUES)11/24/2008 5 - Intolerance Comments: blood problem Date Reviewed: 06/16/2024 Reviewed by: Clarisa Solorzano MA - Fully Assessed Prescriptions as of 08/12/2024 - metoprolol succinate ER (TOPROL XL) 25 mg 24 hr tablet Take 1 tablet by mouth once daily. - atorvastatin (LIPITOR) 80 mg tablet Take 1 tablet by mouth once daily. - amitriptyline (ELAVIL) 25 mg tablet Take 2 tablets by mouth daily at bedtime. - levothyroxine (SYNTHROID) 100 mcg tablet Take 1 tablet by mouth daily before breakfast. - VENTOLIN HFA 90 mcg/actuation inhaler Inhale 2 Puffs as instructed every 4 hours as needed for wheezing/shortness of breath. - VENTOLIN HFA 90 mcg/actuation inhaler Inhale 2 Puffs as instructed every 4 hours as needed. - clobetasol (TEMOVATE) 0.05 % ointment Apply 1 application to affected area two times a day. TO AFFECTED AREA. - fluticasone-salmeterol (ADVAIR, WIXELA) 250-50 mcg/dose inhaler Inhale 1 Puff as instructed two times a day. - acetaminophen (TYLENOL) 500 mg tablet Take 1,000 mg by mouth at bedtime as needed. - albuterol (PROVENTIL) 2.5 mg /3 mL (0.083 %) nebulizer solution inhale 3 milliliters in nebulizer every 4 hours if needed for wheezing /SHORTNESS OF BREATH. USE OVER 5 -15 MINUTES - COMPOUNDED PRESCRIPTION NEBULIZER and supplies FOR HOME USE. DX: J45.30, J45.90. Length of need is life. This is a medically necessary devise for management of patients lung disease. Current machine recently stopped working. While trying to use it started to smoke and stopped. Captain'S Assistant: Therapy (PT/OT/Speech/Resp) ID: [id number] 08/12/2024 10:17 AM Author: SHERRY BRUCE Signed by SHERRY BRUCE PT on 08/12/2024 at 10:17 AM Document text: Program_ID:[id number] Access Code: [email or web address] URL: [email or web address] Date: 08-12-2024 Prepared By: Sherry Bruce Program Notes Patient Education - BPPV - What Is The Vestibular System? - What Is Vestibular Rehab? - BPPV - What Is BPPV? Normal [facility] THERAPY NTon 08-12-2024 THERAPY NT HNO ID: [id number] Author: SHERRY BRUCE PT Service: ? Author Type: Physical Therapist Type: Therapy (PT/OT/Speech/Resp) Filed: 08/12/2024 10:17 Note Text: Program_ID:[id number] Access Code: [email or web address] URL: [email or web address] Date: 08-12-2024 Prepared By: Sherry Bruce Program Notes Patient Education - BPPV - What Is The Vestibular System? - What Is Vestibular Rehab? - BPPV - What Is BPPV? Normal [facility] CNPNon 07-28-2024 CNPN Telephone (FAMPWS) MONTSERRAT AGUAYO ([id number]) 1950 F Date Time Provider Department 07/28/24 JOJO ANDERSON [facility] During your visit today, we recorded the following information about you: Jojo Anderson APRN.INTEL RECRUITER 07/28/2024 10:19 AM Signed Please let patient know her heart monitor shows PVC and PAC which are benign abnormal beats of the heart. She ccan continue the metoprolol. Katia Bhatt MA 07/28/2024 10:37 AM Signed Pt notified of results via [employer]. Katia Bhatt Ma Allergies As of Date: 07/28/2024 Noted Allergy Reaction TYPHOID VACCINE 05/12/2005 5 - Intolerance ADHESIVE TAPE (ROSINS) 04/17/2011 14 - Other: See Comments Comments: after 2 days area becomes red and itches CATS 05/12/2005 5 - Intolerance DICLOFENAC 01/04/2016 14 - Other: See Comments Comments: elevated liver enz DOGS 05/12/2005 5 - Intolerance DUST 05/12/2005 5 - Intolerance MELOXICAM 01/10/2016 14 - Other: See Comments Comments: Swollen eyelids MOLD 05/12/2005 5 - Intolerance TEGRETOL (CARBAMAZEPINE ANALOGUES)11/24/2008 5 - Intolerance Comments: blood problem Date Reviewed: 06/16/2024 Reviewed by: Clarisa Solorzano MA - Fully Assessed Reason for Visit: Results [95] Prescriptions as of 07/28/2024 - metoprolol succinate ER (TOPROL XL) 25 mg 24 hr tablet Take 1 tablet by mouth once daily. - atorvastatin (LIPITOR) 80 mg tablet Take 1 tablet by mouth once daily. - amitriptyline (ELAVIL) 25 mg tablet Take 2 tablets by mouth daily at bedtime. - levothyroxine (SYNTHROID) 100 mcg tablet Take 1 tablet by mouth daily before breakfast. - VENTOLIN HFA 90 mcg/actuation inhaler Inhale 2 Puffs as instructed every 4 hours as needed for wheezing/shortness of breath. - VENTOLIN HFA 90 mcg/actuation inhaler Inhale 2 Puffs as instructed every 4 hours as needed. - clobetasol (TEMOVATE) 0.05 % ointment Apply 1 application to affected area two times a day. TO AFFECTED AREA. - fluticasone-salmeterol (ADVAIR, WIXELA) 250-50 mcg/dose inhaler Inhale 1 Puff as instructed two times a day. - acetaminophen (TYLENOL) 500 mg tablet Take 1,000 mg by mouth at bedtime as needed. - albuterol (PROVENTIL) 2.5 mg /3 mL (0.083 %) nebulizer solution inhale 3 milliliters in nebulizer every 4 hours if needed for wheezing /SHORTNESS OF BREATH. USE OVER 5 -15 MINUTES - COMPOUNDED PRESCRIPTION NEBULIZER and supplies FOR HOME USE. DX: J45.30, J45.90. Length of need is life. This is a medically necessary devise for management of patients lung disease. Current machine recently stopped working. While trying to use it started to smoke and stopped. Problem List As Of Date 07/28/2024 Noted Resolved Acquired hypothyroidism [E03.9] 11/29/2005 Mixed hyperlipidemia [E78.2] 11/29/2005 Spinal stenosis, unspecified region other than *03/02/2006 RSD (reflex sympathetic dystrophy) [G90.50] Mitral valve disorders(424.0) [I05.9] Abdominal pain, unspecified site [R10.9] 01/22/2007 09/10/2013 Neck pain [M54.2] 01/27/2011 Cellulitis [L03.90] 06/21/2011 06/08/2014 Neutropenia, drug-induced (HCC) [D70.2] 08/11/2011 Mild persistent asthma [J45.30] 09/07/2011 Plantar fasciitis [M72.2] 11/24/2013 Wrist pain [M25.539] 11/24/2013 06/08/2014 Sebaceous cyst [L72.3] 01/20/2014 Ganglion and cyst of synovium, tendon and bursa*06/23/2014 Trigger ring finger of right hand [M65.341] 06/23/2014 Fatty liver [K76.0] 04/19/2016 Metabolic syndrome [E88.810] 04/19/2016 Gastroesophageal reflux disease without esophag*08/21/2016 Diverticulosis of large intestine [K57.30] Internal hemorrhoids without mention of complic* History of detached retina repair [Z98.890, Z86*12/20/2016 Cataracts, bilateral [H26.9] 12/20/2016 Well adult exam [Z00.00] 12/20/2016 Elevated hemoglobin A1c [R73.09] 09/10/2017 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, right (HCC) [C50.91*10/05/2017 Right-sided chest wall pain [R07.89] 10/05/2017 Class 1 obesity due to excess calories without *12/31/2017 10/17/2023 Mass of left lower leg [R22.42] 07/03/2018 Ex-smoker [Z87.891] History of skin cancer [Z85.828] History of colonic polyps [Z86.0100] 01/06/2019 Vitamin D deficiency [E55.9] 09/15/2019 Irritable bowel syndrome with both constipation*07/28/2020 Bilateral carotid artery stenosis [I65.23] 07/13/[address] [Z78.9] 01/04/2022 Advance directive discussed with patient [Z71.8*01/04/2022 Medication management [Z79.899] 01/04/2022 Neural foraminal stenosis of cervical spine [M4*03/21/2022 Acute pain of left shoulder [M25.512] 02/20/2023 Tear of left glenoid labrum [S43.432A] 04/16/2023 Incomplete tear of left rotator cuff [M75.112] 04/16/2023 Labral tear of long head of left biceps tendon *04/16/2023 Over weight [E66.3] 10/17/2023 Colon cancer screening [Z12.11] 10/31/2023 Nonrheumatic aortic valve stenosis [I35.0] 06/13/2024 Encounter S (more content not included)... Normal [facility] CNPNon 07-02-2024 CNPN Telephone (FAMPWS) OLIVIERMONTSERRAT R ([id number]) 1950 F Date Time Provider Department 07/02/24 LIAM WILKINS During your visit today, we recorded the following information about you: Chapis Dover RN 07/02/2024 12:11 PM Signed Pt phoned to let Dr. Wilkins know about 2 weeks ago, went to ER because her heart was going crazy and she was dizzy. ER told her she had ventricular something. ER prescribed metoprolol. Pt had appt with Rhoda Anderson, who ordered a heart monitor. Pt is currently wearing the heart monitor. Reports the dizziness is better, but not gone, and now only occurs when she lays down at night. Asking pcp if she needs to keep taking the metoprolol? If yes, please send new Rx to her pharmacy as she needs a refill. Liam Wilkins MD 07/02/2024 8:02 PM Signed Find out if patient made a f/u appt with cardio like ER advised. If not I would advise her to do this and stay on the metoprolol until she sees them. Has she had the event monitor placed and wearing it yet? Script sent. The following approved medication requests have been transmitted electronically. Requested Prescriptions Signed Prescriptions Disp Refills metoprolol succinate ER (TOPROL XL) 25 mg 24 hr tablet 90 tablet 1 Sig: Take 1 tablet by mouth once daily. Authorizing Provider: LIAM WILKINS MD Hudson, M Robin, RN 07/03/2024 9:12 AM Signed Phoned patient and given provider's message below. Pt reports: 1) Jenna put the heart monitor on her at a nurse visit on 06-23-24. She has been wearing it almost 2 weeks and was instructed to wear it for 1 month. Its a little itchy but its doing ok. 2) Pt has f/u appt with [facility] studder on 08/22/24 in [place]. Pt agreeable to keep taking the metoprolol. 3) Pt had appt w/Rhoda Anderson on 06/16/24 and discussed the dizziness. Reports provider checked for orthostatic BP and it was negative. Provider thought it could be caused by inner ear thing or dehydration. Pt states she increased her fluid intake but the dizziness is still happening only when she lays down or sits up. Pt is very concerned about this. 4) Pt reports she is receiving an injection in her left shoulder next week on 07-10-24 with [facility] in [place]. Liam Wilkins MD 07/03/2024 5:23 PM Signed Find out from Montserrat if the dizziness with position changes feels like a spinning feeling. If so the next step would be to get vestibular Tx at PHYSICAL THERAPY. Chapis Dover RN 07/04/2024 9:36 AM Signed Phoned pt and given provider's message below. Pt states the dizziness does happen with position changes and it does feel like everything is spinning around her. Pt agreeable to try vestibular tx with physical therapy. Please place order and have someone call her to schedule appt. Pt asking message be sent to Dr. Wilkins from her: Liam Madera MD 07/04/2024 4:21 PM Signed Order placed. Namrata Clifford MA 07/04/2024 4:29 PM Signed Please assist patient with scheduling with PT. Namrata Clifford MA Allergies As of Date: 07/02/2024 Noted Allergy Reaction TYPHOID VACCINE 05/12/2005 5 - Intolerance ADHESIVE TAPE (ROSINS) 04/17/2011 14 - Other: See Comments Comments: after 2 days area becomes red and itches CATS 05/12/2005 5 - Intolerance DICLOFENAC 01/04/2016 14 - Other: See Comments Comments: elevated liver enz DOGS 05/12/2005 5 - Intolerance DUST 05/12/2005 5 - Intolerance MELOXICAM 01/10/2016 14 - Other: See Comments Comments: Swollen eyelids MOLD 05/12/2005 5 - Intolerance TEGRETOL (CARBAMAZEPINE ANALOGUES)11/24/2008 5 - Intolerance Comments: blood problem Date Reviewed: 06/16/2024 Reviewed by: Clarisa Solorzano MA - Fully Assessed Reason for Visit: Patient Question [0427] Primary Visit Diagnosis:Vertigo [R42] Other Visit Diagnosis:PVC (premature ventricular contraction) [I49.3] Order(s):metoprolol succinate ER (TOPROL XL) 25 mg 24 hr tabletTake 1 tablet by mouth once daily.Disp: 90 tabletRfl: 1 CONSULT TO PHYSICAL THERAPY [9020] Order #: [id number]: 1 FUTURE Prescriptions as of 08/22/2024 - metoprolol succinate ER (TOPROL XL) 25 mg 24 hr tablet Take 1 tablet by mouth once daily. - atorvastatin (LIPITOR) 80 mg tablet Take 1 tablet by mouth once daily. - amitriptyline (ELAVIL) 25 mg tablet Take 2 tablets by mouth daily at bedtime. - levothyroxine (SYNTHROID) 100 mcg tablet Take 1 tablet by mouth daily before breakfast. - VENTOLIN HFA 90 mcg/actuation inhaler Inhale 2 Puffs as instructed every 4 hours as needed for wheezing/shortness of breath. - VENTOLIN HFA 90 mcg/actuation inhaler Inhale 2 Puffs as instructed every 4 hours as needed. - clobetasol (TEMOVATE) 0.05 % ointment Apply 1 application to affected area two times a day. TO AFFECTED AREA. - fluticasone-salmeterol (ADVAIR, WIXELA) 250-50 mcg/dose inhaler Inhale 1 Puff as instructed (more content not included)... [facility] Nurse Visit (FAMPWS) MONTSERRAT AGUAYO ([id number]) 1950 F Date Time Provider Department 06/23/24 4:00 PM MT NURSE RONALDO During your visit today, we recorded the following information about you: Jenna Betancourt LPN 06/23/2024 4:23 PM Signed Patient brought cardiac event monitor that was mailed to her. [place] that she needed help applying it to ensure done correctly. Helped set up device, prep area, and apply at this time. Patient tolerated well. Device is reading accurately. Reviewed instruction booklet for when to charge devices, apply replacement pad, and how to return when complete therapy. Also provided with number to call if any further assistance is needed. Pt verbalized understanding of all information. Jenna Betancourt LPN Allergies As of Date: 06/23/2024 Noted Allergy Reaction TYPHOID VACCINE 05/12/2005 5 - Intolerance ADHESIVE TAPE (ROSINS) 04/17/2011 14 - Other: See Comments Comments: after 2 days area becomes red and itches CATS 05/12/2005 5 - Intolerance DICLOFENAC 01/04/2016 14 - Other: See Comments Comments: elevated liver enz DOGS 05/12/2005 5 - Intolerance DUST 05/12/2005 5 - Intolerance MELOXICAM 01/10/2016 14 - Other: See Comments Comments: Swollen eyelids MOLD 05/12/2005 5 - Intolerance TEGRETOL (CARBAMAZEPINE ANALOGUES)11/24/2008 5 - Intolerance Comments: blood problem Date Reviewed: 06/16/2024 Reviewed by: Clarisa Solorzano MA - Fully Assessed Reason for Visit: event monitor [Other] Primary Visit Diagnosis:Dizziness [R42] Other Visit Diagnosis:PVC (premature ventricular contraction) [I49.3] Prescriptions as of 06/23/2024 - metoprolol succinate ER (TOPROL XL) 25 mg 24 hr tablet Take 25 mg by mouth once daily. - atorvastatin (LIPITOR) 80 mg tablet Take 1 tablet by mouth once daily. - amitriptyline (ELAVIL) 25 mg tablet Take 2 tablets by mouth daily at bedtime. - levothyroxine (SYNTHROID) 100 mcg tablet Take 1 tablet by mouth daily before breakfast. - VENTOLIN HFA 90 mcg/actuation inhaler Inhale 2 Puffs as instructed every 4 hours as needed for wheezing/shortness of breath. - VENTOLIN HFA 90 mcg/actuation inhaler Inhale 2 Puffs as instructed every 4 hours as needed. - clobetasol (TEMOVATE) 0.05 % ointment Apply 1 application to affected area two times a day. TO AFFECTED AREA. - fluticasone-salmeterol (ADVAIR, WIXELA) 250-50 mcg/dose inhaler Inhale 1 Puff as instructed two times a day. - acetaminophen (TYLENOL) 500 mg tablet Take 1,000 mg by mouth at bedtime as needed. - albuterol (PROVENTIL) 2.5 mg /3 mL (0.083 %) nebulizer solution inhale 3 milliliters in nebulizer every 4 hours if needed for wheezing /SHORTNESS OF BREATH. USE OVER 5 -15 MINUTES - COMPOUNDED PRESCRIPTION NEBULIZER and supplies FOR HOME USE. DX: J45.30, J45.90. Length of need is life. This is a medically necessary devise for management of patients lung disease. Current machine recently stopped working. While trying to use it started to smoke and stopped. Problem List As Of Date 06/23/2024 Noted Resolved Acquired hypothyroidism [E03.9] 11/29/2005 Mixed hyperlipidemia [E78.2] 11/29/2005 Spinal stenosis, unspecified region other than *03/02/2006 RSD (reflex sympathetic dystrophy) [G90.50] Mitral valve disorders(424.0) [I05.9] Abdominal pain, unspecified site [R10.9] 01/22/2007 09/10/2013 Neck pain [M54.2] 01/27/2011 Cellulitis [L03.90] 06/21/2011 06/08/2014 Neutropenia, drug-induced (HCC) [D70.2] 08/11/2011 Mild persistent asthma [J45.30] 09/07/2011 Plantar fasciitis [M72.2] 11/24/2013 Wrist pain [M25.539] 11/24/2013 06/08/2014 Sebaceous cyst [L72.3] 01/20/2014 Ganglion and cyst of synovium, tendon and bursa*06/23/2014 Trigger ring finger of right hand [M65.341] 06/23/2014 Fatty liver [K76.0] 04/19/2016 Metabolic syndrome [E88.810] 04/19/2016 Gastroesophageal reflux disease without esophag*08/21/2016 Diverticulosis of large intestine [K57.30] Internal hemorrhoids without mention of complic* History of detached retina repair [Z98.890, Z86*12/20/2016 Cataracts, bilateral [H26.9] 12/20/2016 Well adult exam [Z00.00] 12/20/2016 Elevated hemoglobin A1c [R73.09] 09/10/2017 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, right (HCC) [C50.91*10/05/2017 Right-sided chest wall pain [R07.89] 10/05/2017 Class 1 obesity due to excess calories without *12/31/2017 10/17/2023 Mass of left lower leg [R22.42] 07/03/2018 Ex-smoker [Z87.891] History of skin cancer [Z85.828] History of colonic polyps [Z86.0100] 01/06/2019 Vitamin D deficiency [E55.9] 09/15/2019 Irritable bowel syndrome with both constipation*07/28/2020 Bilateral carotid artery stenosis [I65.23] 07/13/[address] [Z78.9] 01/04/2022 Advance directive discussed with patient [Z71.8*01/04/2022 Medication management [Z79.899] 01/04/2022 Neural foraminal stenosis of cervical spine [M4*03/21/2022 Acute pain of le (more content not included)... [facility] MON[facility] ([id number]) 1950 F Date Time Provider Department 06/23/24 KNOBLE, JOJO FAMPWS During your visit today, we recorded the following information about you: Niesha Mujica RN 06/23/2024 11:07 AM Signed Pt called in and reports she was ordered a halter monitor by Jojo Anderson FACILITIES OPERATOR for dizziness and PVCs. Pt reports she has stenosis in her neck and she only notices the dizziness when she is laying down on a pillow and putting pressure on her neck. She was wondering if this could be causing the dizziness and heart issues. Pt set up with Jenna Betancourt LPN to place heart monitor. Please call and advise. Jojo Anderson, LYNN.INTEL RECRUITER 06/23/2024 12:31 PM Signed It could contribute to her dizziness but I do not believe it is the source of all of her symptoms. Niesha Mujica RN 06/23/2024 12:37 PM Signed Pt called and is notified of providers message. Pt voices understanding and was asking if she should have a f/u on the stenosis to see if it has gotten worse. CHRISTIE Brandon Danielle, LYNN.INTEL RECRUITER 06/23/2024 12:38 PM Signed US completed 11/2023. Showed 20-40% stenosis no need for follow up at this time. Clarisa Solorzano MA 06/23/2024 1:46 PM Signed Left message for patient to return call to office ZEINAB Bo Krystle, RN 06/23/2024 3:03 PM Signed Patient returns call and provider message reviewed with verbalized understanding. CHRISTIE Way Brittany, MA 06/23/2024 4:45 PM Signed Pt stops by office requesting provider reconsider a repeat US. She states every tie she turns her head she feels dizzy and feels this is necessary Please advise ZEINAB Bo Danielle, LYNN.INTEL RECRUITER 06/23/2024 4:52 PM Signed Please let patient know that stenosis is something that happens over time and repeating testing this soon is not advised. Annual monitoring is the most frequent we would schedule this test. Also her amount of stenosis is very minimal for her age and is not likely to cause symptoms. Niesha Mujica RN 06/23/2024 4:59 PM Signed Pt called and is notified of providers results and instructions. Pt voices understanding. Niesha Mujica RN Allergies As of Date: 06/23/2024 Noted Allergy Reaction TYPHOID VACCINE 05/12/2005 5 - Intolerance ADHESIVE TAPE (ROSINS) 04/17/2011 14 - Other: See Comments Comments: after 2 days area becomes red and itches CATS 05/12/2005 5 - Intolerance DICLOFENAC 01/04/2016 14 - Other: See Comments Comments: elevated liver enz DOGS 05/12/2005 5 - Intolerance DUST 05/12/2005 5 - Intolerance MELOXICAM 01/10/2016 14 - Other: See Comments Comments: Swollen eyelids MOLD 05/12/2005 5 - Intolerance TEGRETOL (CARBAMAZEPINE ANALOGUES)11/24/2008 5 - Intolerance Comments: blood problem Date Reviewed: 06/16/2024 Reviewed by: Clarisa Solorzano MA - Fully Assessed Reason for Visit: Patient Question [3252] Appointment [186] Prescriptions as of 06/23/2024 - metoprolol succinate ER (TOPROL XL) 25 mg 24 hr tablet Take 25 mg by mouth once daily. - atorvastatin (LIPITOR) 80 mg tablet Take 1 tablet by mouth once daily. - amitriptyline (ELAVIL) 25 mg tablet Take 2 tablets by mouth daily at bedtime. - levothyroxine (SYNTHROID) 100 mcg tablet Take 1 tablet by mouth daily before breakfast. - VENTOLIN HFA 90 mcg/actuation inhaler Inhale 2 Puffs as instructed every 4 hours as needed for wheezing/shortness of breath. - VENTOLIN HFA 90 mcg/actuation inhaler Inhale 2 Puffs as instructed every 4 hours as needed. - clobetasol (TEMOVATE) 0.05 % ointment Apply 1 application to affected area two times a day. TO AFFECTED AREA. - fluticasone-salmeterol (ADVAIR, WIXELA) 250-50 mcg/dose inhaler Inhale 1 Puff as instructed two times a day. - acetaminophen (TYLENOL) 500 mg tablet Take 1,000 mg by mouth at bedtime as needed. - albuterol (PROVENTIL) 2.5 mg /3 mL (0.083 %) nebulizer solution inhale 3 milliliters in nebulizer every 4 hours if needed for wheezing /SHORTNESS OF BREATH. USE OVER 5 -15 MINUTES - COMPOUNDED PRESCRIPTION NEBULIZER and supplies FOR HOME USE. DX: J45.30, J45.90. Length of need is life. This is a medically necessary devise for management of patients lung disease. Current machine recently stopped working. While trying to use it started to smoke and stopped. Problem List As Of Date 06/23/2024 Noted Resolved Acquired hypothyroidism [E03.9] 11/29/2005 Mixed hyperlipidemia [E78.2] 11/29/2005 Spinal stenosis, unspecified region other than *03/02/2006 RSD (reflex sympathetic dystrophy) [G90.50] Mitral valve disorders(424.0) [I05.9] Abdominal pain, unspecified site [R10.9] 01/22/2007 09/10/2013 Neck pain [M54.2] 01/27/2011 Cellulitis [L03.90] 06/21/2011 06/08/2014 Neutropenia, drug-induced (HCC) [D70.2] 08/11/2011 Mild persistent asthma [J45.30] more content not included)... [facility] MONTSERRAT AGUAYO ([id number]) 1950 F Date Time Provider Department 06/17/24 [facility] During your visit today, we recorded the following information about you: Jojo Anderson APRN.INTEL RECRUITER 06/17/2024 8:58 AM Signed Please let patient know her T3 is slightly low but her TSH and other labs are normal. Continue current levothyroxine dose. Namrata Clifford MA 06/17/2024 9:05 AM Signed Patient notified and voiced understanding. Namrata Clifford MA Allergies As of Date: 06/17/2024 Noted Allergy Reaction TYPHOID VACCINE 05/12/2005 5 - Intolerance ADHESIVE TAPE (ROSINS) 04/17/2011 14 - Other: See Comments Comments: after 2 days area becomes red and itches CATS 05/12/2005 5 - Intolerance DICLOFENAC 01/04/2016 14 - Other: See Comments Comments: elevated liver enz DOGS 05/12/2005 5 - Intolerance DUST 05/12/2005 5 - Intolerance MELOXICAM 01/10/2016 14 - Other: See Comments Comments: Swollen eyelids MOLD 05/12/2005 5 - Intolerance TEGRETOL (CARBAMAZEPINE ANALOGUES)11/24/2008 5 - Intolerance Comments: blood problem Date Reviewed: 06/16/2024 Reviewed by: Clarisa Solorzano MA - Fully Assessed Reason for Visit: Results [95] Prescriptions as of 06/17/2024 - metoprolol succinate ER (TOPROL XL) 25 mg 24 hr tablet Take 25 mg by mouth once daily. - atorvastatin (LIPITOR) 80 mg tablet Take 1 tablet by mouth once daily. - amitriptyline (ELAVIL) 25 mg tablet Take 2 tablets by mouth daily at bedtime. - levothyroxine (SYNTHROID) 100 mcg tablet Take 1 tablet by mouth daily before breakfast. - VENTOLIN HFA 90 mcg/actuation inhaler Inhale 2 Puffs as instructed every 4 hours as needed for wheezing/shortness of breath. - VENTOLIN HFA 90 mcg/actuation inhaler Inhale 2 Puffs as instructed every 4 hours as needed. - clobetasol (TEMOVATE) 0.05 % ointment Apply 1 application to affected area two times a day. TO AFFECTED AREA. - fluticasone-salmeterol (ADVAIR, WIXELA) 250-50 mcg/dose inhaler Inhale 1 Puff as instructed two times a day. - acetaminophen (TYLENOL) 500 mg tablet Take 1,000 mg by mouth at bedtime as needed. - albuterol (PROVENTIL) 2.5 mg /3 mL (0.083 %) nebulizer solution inhale 3 milliliters in nebulizer every 4 hours if needed for wheezing /SHORTNESS OF BREATH. USE OVER 5 -15 MINUTES - COMPOUNDED PRESCRIPTION NEBULIZER and supplies FOR HOME USE. DX: J45.30, J45.90. Length of need is life. This is a medically necessary devise for management of patients lung disease. Current machine recently stopped working. While trying to use it started to smoke and stopped. Problem List As Of Date 06/17/2024 Noted Resolved Acquired hypothyroidism [E03.9] 11/29/2005 Mixed hyperlipidemia [E78.2] 11/29/2005 Spinal stenosis, unspecified region other than *03/02/2006 RSD (reflex sympathetic dystrophy) [G90.50] Mitral valve disorders(424.0) [I05.9] Abdominal pain, unspecified site [R10.9] 01/22/2007 09/10/2013 Neck pain [M54.2] 01/27/2011 Cellulitis [L03.90] 06/21/2011 06/08/2014 Neutropenia, drug-induced (HCC) [D70.2] 08/11/2011 Mild persistent asthma [J45.30] 09/07/2011 Plantar fasciitis [M72.2] 11/24/2013 Wrist pain [M25.539] 11/24/2013 06/08/2014 Sebaceous cyst [L72.3] 01/20/2014 Ganglion and cyst of synovium, tendon and bursa*06/23/2014 Trigger ring finger of right hand [M65.341] 06/23/2014 Fatty liver [K76.0] 04/19/2016 Metabolic syndrome [E88.810] 04/19/2016 Gastroesophageal reflux disease without esophag*08/21/2016 Diverticulosis of large intestine [K57.30] Internal hemorrhoids without mention of complic* History of detached retina repair [Z98.890, Z86*12/20/2016 Cataracts, bilateral [H26.9] 12/20/2016 Well adult exam [Z00.00] 12/20/2016 Elevated hemoglobin A1c [R73.09] 09/10/2017 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, right (HCC) [C50.91*10/05/2017 Right-sided chest wall pain [R07.89] 10/05/2017 Class 1 obesity due to excess calories without *12/31/2017 10/17/2023 Mass of left lower leg [R22.42] 07/03/2018 Ex-smoker [Z87.891] History of skin cancer [Z85.828] History of colonic polyps [Z86.0100] 01/06/2019 Vitamin D deficiency [E55.9] 09/15/2019 Irritable bowel syndrome with both constipation*07/28/2020 Bilateral carotid artery stenosis [I65.23] 07/13/[address] [Z78.9] 01/04/2022 Advance directive discussed with patient [Z71.8*01/04/2022 Medication management [Z79.899] 01/04/2022 Neural foraminal stenosis of cervical spine [M4*03/21/2022 Acute pain of left shoulder [M25.512] 02/20/2023 Tear of left glenoid labrum [S43.432A] 04/16/2023 Incomplete tear of left rotator cuff [M75.112] 04/16/2023 Labral tear of long head of left biceps tendon *04/16/2023 Over weight [E66.3] 10/17/2023 Colon cancer screening [Z12.11] 10/31/2023 Nonrheumatic aortic valve stenosis [I35.0] 06/13/2024 Encounter Status:Clos (more content not included)... Normal [facility] CNOVon 06-16-2024 CNOV Office Visit (NICOLE[facility] ) MONTSERRAT AGUAYO ([id number]) 1950 F Date Time Provider Department 06/16/24 3:20 PM JOJO ANDERSON During your visit today, we recorded the following information about you: Pulse Blood pressure Weight 82/minute 141/69 90.7 kg Jojo Anderson APRN.INTEL RECRUITER 06/16/2024 3:28 PM Signed Chief Complaint Patient presents with: ER F/U HPI Motnserrat Aguayo is a 74 year old female who presents here today for Above Complaints.. Patient presents for ER follow up for irregular heartbeat and dizziness. Patient was seen 06/12 ad was told she may have vertigo as well as PVC's. Past medical history, appointments, medications, allergies reviewed. Previous Medical History PAST MEDICAL HISTORY Diagnosis Date Acquired hypothyroidism 11/29/2005 Bilateral carotid artery stenosis 07/13/2021 US: 06/2021: Stephen 20-40% 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, right (HCC) 10/05/2017 Cataracts, bilateral 12/20/2016 Some relation to steroids with her asthma. 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 Incomplete tear of left rotator cuff 04/16/2023 Internal hemorrhoids without mention of complication Irritable bowel syndrome with both constipation and diarrhea 07/28/2020 Labral tear of long head of left biceps tendon 04/16/2023 Lichen sclerosus Living will in place 01/04/2022 DPA: Deshawn () Mass of left lower leg 07/03/2018 Benign w/u Metabolic syndrome 04/19/2016 Mild persistent asthma 09/07/2011 Mitral valve disorders(424.0) Mixed hyperlipidemia 11/29/2005 Neural foraminal stenosis of cervical spine 03/21/2022 Mod-sever on the left Neutropenia, drug-induced (HCC) 08/11/2011 Nonrheumatic aortic valve stenosis 06/13/2024 Seeing Cardio: Dr. Colon Obesity Over weight 10/17/2023 Plantar fasciitis 11/24/2013 Primary insomnia 07/06/2021 Right-sided chest wall pain 10/05/2017 Secondary to breast cancer radiation. RSD (reflex sympathetic dystrophy) Sebaceous cyst 01/20/2014 Spinal stenosis, unspecified region other than cervical 03/02/2006 Tear of left glenoid labrum 04/16/2023 Trigger ring finger of right hand 06/23/2014 Vitamin D deficiency 09/15/2019 Previous Surgical History PAST SURGICAL HISTORY Procedure Laterality Date ADENOIDECTOMY PRIMARY Adenoidectomy BREAST BIOPSY CORE 04/11/2011 right breast 2:00, 4:00 and 10:00 BREAST BIOPSY INCISIONAL 14 years ago right and left breast- benign BREAST RECONSTRUC W FREE FLAP 12/13/2012 bilateral breast BREAST RECONSTRUC W TISS EXPANDR 05/25/2011 right breast with elevation of the serratus flap CARDIAC CATH 03/20/2017 normal, by Dr. Colvin COLONOSCOPY 01/03/2024 repeat 3 years COLONOSCOPY FLX DX W/COLLJ SPEC WHEN PFRMD 04/08/2007 COLONOSCOPY FLX DX W/COLLJ SPEC WHEN PFRMD N/A 09/06/2016 MAC COLONOSCOPY FLX DX W/COLLJ SPEC WHEN PFRMD 02/10/2019 Colonoscopy INSJ TUNNELED CTR VAD W/SUBQ PORT AGE 5 YR/> 07/06/2011 left IJ MASTECTOMY, SIMPLE, COMPLETE 05/25/2011 right breast skin-sparing with SLND/level 1 LND MASTECTOMY, SIMPLE, COMPLETE 12/13/2012 prophylactic left breast PAST SURGICAL HISTORY OF squamous cell skin ca nose, lips, face PAST SURGICAL HISTORY OF 1972 removal of sweat glands (bilateral axilla (right x 2)and groin) PAST SURGICAL HISTORY OF 03/06/2016 removal of polyp at [facility] [employer] COVID-19 VACCINE, AGE 12+ YR (PURPLE TOP) 09/11/2020 first vaccine REM LESION TRUNK,ARM, LEG <0.5 CM 01/24/2014 Exc. deyanira cyst left inframammary REPAIR ROTATOR CUFF,ACUTE Left 07/02/2023 RMVL MOISES CTR VAD W/SUBQ PORT/BUHR MILL OPERATOR CTR/PRPH INSJ 01/18/2012 Removal left IJ port RPR COMPLEX RETINA DETACH VITRECT ANDMEMBRANE PEEL 09/2014 left retina SIGMOIDOSCOPY FLX DX W/COLLJ SPEC BR/WA IF PFRMD 01/27/2002 Sigmoidoscopy TONSILLECTOMY PRIMARY/SECONDARY Tonsillectomy Family History FAMILY HISTORY Problem Relation Age of Onset Breast Cancer Mother dx in her 50's other (uterine cancer) Mother dx before breast cancer Aneurysm Mother Brain Heart Father MT, valve disorder Headache Sister other (other cances) Sister no known family h/o: ovarian; prostate, colon, pancreatic, lung, thyroid, brain, melenoma, leukemia, sarcomas No Known Problems Maternal Grandmother Heart Attack Maternal Grandfather other (rectal cancer) Paternal Grandmother 95 Colon Cancer (more content not included)... Normal [facility] GYL13ze 06-16-2024 ECG01 Ventricular Rate : 6 7 BPM Atrial Rate : 67 BPM P-R Interval : 150 ms QRS Duration : 76 ms Q-T Interval : 382 ms QTC Calculation(Bazett) : 403 ms Calculated P [place] : 68 degrees Calculated R [place] : 42 degrees Calculated T [place] : 49 degrees NORMAL SINUS RHYTHM NORMAL ECG Confirmed by MD PEARCE QARAB ([id number]) on 06/24/2024 3:21:05 PM NAME : MONTSERRAT AGUAYO PID : [id number] : 1950 Gender : Female Race : ORD : Procedure Date : Jun 16 2024 15:37:28 Edit Date : Jun 24 2024 15:21:08 Diagnosis: NORMAL SINUS RHYTHM NORMAL ECG Confirmed by MD PEARCE QARAB ([id number]) on 06/24/2024 3:21:05 PM Test Reason : [facility] Over[facility] By : MD PEARCE QARAB Edited By : MD PEARCE QARAB Referred By : Jojo Anderson Acquired by : Dee cordero [facility] HbA1c (Bld)on 06-16-2024 Average glucose Estimated from glycated hemoglobin (Bld) [Mass/Vol] 111 mg/dL Normal [facility] Comment on above: Order Comment: Coral silver Type: BLOOD SPECIMENOrdering Facility: [facility] Address: [address] [place] [address] Result Comment: eAG: (Estimated average glucose) is a calculated value from HgbA1c and is operations support representative of the average blood glucose level in the last 2-3 month period. Performed By: #### 5 5454-3 ####[facility] [id number] [place] [address] [place] HbA1c (Bld) [Mass fraction] 5.5 % Normal 4.3-5.6 [facility] Comment on above: Order Comment: Coral silver Type: BLOOD SPECIMENOrdering Facility: [facility] Address: [address] [place] [address] Result Comment: Amer [place] Diabetes Association guidelines indicate that patients with HgbA1c in the range 5.7-6.4% are at increased risk for development of diabetes, and intervention by lifestyle modification may be beneficial. HgbA1c greater or equal to 6.5% is considered diagnostic of diabetes. Performed By: #### 5 5454-3 ####[facility] [id number] [place] [address] [place] T3 SerPl-mCncon 06-16-2024 T3 [Mass/Vol] 76 ng/dL Low 79-165 [facility] Comment on above: Order Comment: Speci men Type: BLOOD SPECIMENOrdering Facility: [facility] Address: [address] [place] [address] Performed By: #### 3 024-7, 3016-3, 3053-6 ####[facility] [id number] [place] [address] [place] T4 Free SerPl-mCncon 024 Free T4 [Mass/Vol] 1.3 ng/dL Normal 0.9-1.7 [facility] Comment on above: Order Comment: Speci men Type: BLOOD SPECIMENOrdering Facility: [facility] Address: [address] [place] [address] Performed By: #### 3 024-7, 3016-3, 305-6 ####[facility] [id number] [address] [place] TSH SerPl-aCncon 06-16-2024 TSH Qn 1.590 m[IU]/L Normal 0.270-4.200 [facility] Comment on above: Order Comment: Speci men Type: BLOOD SPECIMENOrdering Facility: [facility] Address: [address] [place] [address] Performed By: #### 3 024-7, 3016-3, 3053-6 ####[facility] [id number] [place] [id number] [place] CNPNon 06-12-2024 CNPN Telephone ([facility]) MONTSERRAT AGUAYO ([id number]) 1950 F Date Time Provider Department 06/12/24 LIAM WILKINS During your visit today, we recorded the following information about you: Chapis Dover RN 06/12/2024 10:16 AM Signed Pt reports she was in [facility] ER yesterday with dizziness and irregular heart beat. Reports irregular heart beat is not new. Reports she was having a-fib and pvc's. ER prescribed metoprolol succinate. Reports CT was negative, CXR negative. Reports she slept good last night, woke up this morning with a little dizziness, but had not drank liquids yet. Reports the dizziness this morning is not near as bad as yesterday. Pt started drinking water while talking to this nurse. Pt declined ER f/u appt on Sunday stating she has jury duty. Scheduled f/u appt for Sunday. Advised patient to ER if dizziness became worse, and if she develops CP, SOB, MASTERS or any concerning symptoms. Pt agreeable. Liam Wilkins MD 06/12/2024 11:25 AM Signed I do not have the ER report to review. However if she was in A. Fib they should ad advised she f/u with cardiology? Can someone pull the ER report and confirm if she was in A. Fib? If so was she advised to see cardio? Sabas Peacock LPN 06/12/2024 1:04 PM Signed Was able to locate ER Discharge summary in Onbase Initial EKG Interpretation: Sinus Rhythm and no acute injury pattern. Frequent pvcs nml intervals nml axis. Pt was advised to f/u with her hairspring studder. No mention of A-fib. Sabas Peacock LPN Scan on 06/12/2024 1:23 AM by Provider, External, PA-C: Consultation - Emergency Medicine Liam Wilkins MD 06/13/2024 1:40 PM Signed Jojo patient will probably need a 30 day event monitor and check TSH and Free T4 if it was not done yet. Allergies As of Date: 06/12/2024 Noted Allergy Reaction TYPHOID VACCINE 05/12/2005 5 - Intolerance ADHESIVE TAPE (ROSINS) 04/17/2011 14 - Other: See Comments Comments: after 2 days area becomes red and itches CATS 05/12/2005 5 - Intolerance DICLOFENAC 01/04/2016 14 - Other: See Comments Comments: elevated liver enz DOGS 05/12/2005 5 - Intolerance DUST 05/12/2005 5 - Intolerance MELOXICAM 01/10/2016 14 - Other: See Comments Comments: Swollen eyelids MOLD 05/12/2005 5 - Intolerance TEGRETOL (CARBAMAZEPINE ANALOGUES)11/24/2008 5 - Intolerance Comments: blood problem Date Reviewed: 04/23/2024 Reviewed by: Liam Wilkins MD - Fully Assessed Reason for Visit: [facility] ER visit [Other] Prescriptions as of 06/17/2024 - metoprolol succinate ER (TOPROL XL) 25 mg 24 hr tablet Take 25 mg by mouth once daily. - atorvastatin (LIPITOR) 80 mg tablet Take 1 tablet by mouth once daily. - amitriptyline (ELAVIL) 25 mg tablet Take 2 tablets by mouth daily at bedtime. - levothyroxine (SYNTHROID) 100 mcg tablet Take 1 tablet by mouth daily before breakfast. - VENTOLIN HFA 90 mcg/actuation inhaler Inhale 2 Puffs as instructed every 4 hours as needed for wheezing/shortness of breath. - VENTOLIN HFA 90 mcg/actuation inhaler Inhale 2 Puffs as instructed every 4 hours as needed. - clobetasol (TEMOVATE) 0.05 % ointment Apply 1 application to affected area two times a day. TO AFFECTED AREA. - fluticasone-salmeterol (ADVAIR, WIXELA) 250-50 mcg/dose inhaler Inhale 1 Puff as instructed two times a day. - acetaminophen (TYLENOL) 500 mg tablet Take 1,000 mg by mouth at bedtime as needed. - albuterol (PROVENTIL) 2.5 mg /3 mL (0.083 %) nebulizer solution inhale 3 milliliters in nebulizer every 4 hours if needed for wheezing /SHORTNESS OF BREATH. USE OVER 5 -15 MINUTES - COMPOUNDED PRESCRIPTION NEBULIZER and supplies FOR HOME USE. DX: J45.30, J45.90. Length of need is life. This is a medically necessary devise for management of patients lung disease. Current machine recently stopped working. While trying to use it started to smoke and stopped. Problem List As Of Date 06/12/2024 Noted Resolved Acquired hypothyroidism [E03.9] 11/29/2005 Mixed hyperlipidemia [E78.2] 11/29/2005 Spinal stenosis, unspecified region other than *03/02/2006 RSD (reflex sympathetic dystrophy) [G90.50] Mitral valve disorders(424.0) [I05.9] Abdominal pain, unspecified site [R10.9] 01/22/2007 09/10/2013 Neck pain [M54.2] 01/27/2011 Cellulitis [L03.90] 06/21/2011 06/08/2014 Neutropenia, drug-induced (HCC) [D70.2] 08/11/2011 Mild persistent asthma [J45.30] 09/07/2011 Plantar fasciitis [M72.2] 11/24/2013 Wrist pain [M25.539] 11/24/2013 06/08/2014 Sebaceous cyst [L72.3] 01/20/2014 Ganglion and cyst of synovium, tendon and bursa*06/23/2014 Trigger ring finger of right hand [M65.341] 06/23/2014 Fatty liver [K76.0] 04/19/2016 Metabolic syndrome [E88.810] 04/19/2016 Gastroesophageal reflux disease without esophag*08/21/2016 Diverticulosis of large intestine [K57.30] Internal hemorrhoids without mention of c (more content not included)... Normal [facility] L501.4020on 06-12-2024 TROPONIN-I HS 8 pg/mL Normal 3.0-54.0 [facility] Comment on above: Result Comment: Plea se Note: New Test Units and Gender Specific Reference Ranges. For more information see Policy Stat Procedure [place] High Sensitivity Troponin (TNIH) and attachments. Performed By: #### L 501.4020 #### [facility] [address] [place], [place], [id number] 12 Lead EKGon 06-11-2024 12 Lead EKG [facility] [address] [place] [address] 12 Lead EKG 06/11/24 2206 MR#: [id number] Acct: [id number] Name: MONTSERRAT AGUAYO Rep #: [id number] : 1950 74 From: Michael Ferguson MD Attending Dr: Status: DEP ER Ordering Dr: Arnoldo Morales MD Date: 06/11/24 Location: ED Sex: F C Admitted: Test Reason : DYSRHYTHMIA Blood Pressure : */* mmHG Vent. Rate : 86 BPM Atrial Rate : 86 BPM P-R Int : 168 ms QRS Dur : 76 ms QT Int : 372 ms P-R-T Axes : 64 49 48 degrees QTcB Int : 445 ms Sinus rhythm with frequent and consecutive Premature ventricular complexes Abnormal ECG Confirmed by SOO JOYCE, MICHAEL ([id number]), editor & co founder NIESHA ALBERT ([id number]) on 06/12/2024 11:01:35 AM Referred By: BB Confirmed By: MICHAEL FERGUSON MD 06/12/24 1101 Date Michael Ferguson MD CC: Dr. Arnoldo Morales MD; Dr. Liam Wilkins MD Signed Normal [facility] Basic Metabolic Profile (BMP )on 06-11-2024 BUN/CRE 15.9 RATIO Normal 10-20 [facility] Comment on above: Order Comment: 1 Y Performed By: #### L 501.5425, L500.2500, L100.0100 #### [facility] [address] [place], [address] CA,Total 9.7 mg/dL Normal 8.5-10.1 [facility] Comment on above: Order Comment: 1 Y Performed By: #### L 501.5425, L500.2500, L100.0100 #### [facility] [address] [place], [address] Chloride [Moles/Vol] 107 mmol/L Normal 98-107 [facility] Comment on above: Order Comment: 1 Y Performed By: #### L 501.5425, L500.2500, L100.0100 #### [facility] [address] [place], [address] CO2 [Moles/Vol] 29.0 mmol/L Normal 21.0-32.0 [facility] Comment on above: Order Comment: 1 Y Performed By: #### L 501.5425, L500.2500, L100.0100 #### [facility] [address] [place], [address] Creatinine [Mass/Vol] 0.75 mg/dL Normal 0.55-1.02 [facility] Comment on above: Order Comment: 1 Y Result Comment: The validity of the calculated GFR GFRAA in patients over 70 years has not been determined. Clinical correlation is essential. Performed By: #### L 501.5425, L500.2500, L100.0100 #### [facility] [address] [place], [address] ECRCL 73.94 ml/min Normal [facility] Comment on above: Order Comment: 1 Y Performed By: #### L 501.5425, L500.2500, L100.0100 #### [facility] [address] [place], [address] EST GFR - AA 97 mL/min Normal >60 [facility] Comment on above: Order Comment: 1 Y Result Comment: Afri can [place] GFR Calc Performed By: #### L 501.5425, L500.2500, L100.0100 #### [facility] [address] [place], [address] GAP 4 Low 5-15 [facility] Comment on above: Order Comment: 1 Y Performed By: #### L 501.5425, L500.2500, L100.0100 #### [facility] [address] [place], [address] GFR/1.73 sq M.predicted among non-blacks MDRD (S/P/Bld) [Vol rate/Area] 80 mL/min/{1.73_m2} Normal >60 [facility] Comment on above: Order Comment: 1 Y Result Comment: Non- GFR Calc Performed By: #### L 501.5425, L500.2500, L100.0100 #### [facility] [address] [place], [address] Glucose [Mass/Vol] 94 mg/dL Normal 74-106 [facility] Comment on above: Order Comment: 1 Y Performed By: #### L 501.5425, L500.2500, L100.0100 #### [facility] [address] [place], [address] Potassium [Moles/Vol] 4.0 mmol/L Normal 3.5-5.1 [facility] Comment on above: Order Comment: 1 Y Performed By: #### L 501.5425, L500.2500, L100.0100 #### [facility] [address] [place], [address] Sodium [Moles/Vol] 140 mmol/L Normal 136-145 [facility] Comment on above: Order Comment: 1 Y Performed By: #### L 501.5425, L500.2500, L100.0100 #### [facility] [address] [place], [address] Urea nitrogen [Mass/Vol] 12 mg/dL Normal 7-18 [facility] Comment on above: Order Comment: 1 Y Performed By: #### L 501.5425, L500.2500, L100.0100 #### [facility] [address] [place], [address] Brain/Head without Contrasto n 06-11-2024 Brain/Head without Contrast [facility] [address] [place] [address] Brain/Head without Contrast MR#: [id number] Acct: [id number] Name: MONTSERRAT AGUAYO Rep #: [id number] : 1950 F 74 From: Eduar Alston MD PCP: Dr. Liam Wilkins MD Status: REG ER Study: Brain/Head without Contrast Date of Exam: 05/25 02/15 Exam# [id number] Ordering Dr: [place] [id number] EXAM: CT HEAD WITHOUT INTRAVENOUS CONTRAST CLINICAL INDICATION: dizziness TECHNIQUE: Multiple axial images were obtained of the head without intravenous contrast. This CT exam was performed using one or more of the following dose reduction techniques: automated exposure control, adjustment of the mA and/or kV according to patient size, and/or use of iterative reconstruction technique. COMPARISON: No relevant prior studies available. FINDINGS: BRAIN AND EXTRA-AXIAL SPACES: Unremarkable. No intra- or extra-axial hemorrhage. No evidence of acute infarct. No intracranial mass or mass effect. There is preservation of the malloy/white matter interface. Posterior fossa structures are unremarkable. Ventricles are appropriate for age. No hydrocephalus. Basal cisterns are patent. BONES/JOINTS: Unremarkable. No discrete lytic or blastic abnormalities. SINUSES: Mucosal thickening in the maxillary sinuses. MASTOID AIR CELLS: Unremarkable. Clear. ORBITS: Visualized globes, extraocular muscles, optic nerves and retrobulbar fat appear unremarkable. CT/Brain/Head without Contrast IMPRESSION: No acute findings in the head/brain. Electronically Signed: Eduar Alston MD at 23:18 EST , CC: Dr. Arnoldo Morales MD; Dr. Liam Wilkins MD Photographs Curator: Signed Normal [facility] CBC W/Diff, Automatedon 05-25 Absolute Lymph 1.93 X10 3/uL Normal 0.83-4.51 [facility] Comment on above: Performed By: #### L 501.5425, L500.2500, L100.0100 #### [facility] [address] [place], [address] Absolute Neut 3.9 X10 3/uL Normal 2.0-7.7 [facility] Comment on above: Performed By: #### L 501.5425, L500.2500, L100.0100 #### [facility] [address] [place], [address] Basophils/100 WBC (Bld) 0.7 % Normal 0-1 [facility] Comment on above: Performed By: #### L 501.5425, L500.2500, L100.0100 #### [facility] [address] [place], [address] Eosinophils/100 WBC (Bld) 6.2 % High 0-5 [facility] Comment on above: Performed By: #### L 501.5425, L500.2500, L100.0100 #### [facility] [address] [place], [address] Erythrocyte distribution width (RBC) [Ratio] 13.2 % Normal 11.6-14.6 [facility] Comment on above: Performed By: #### L 501.5425, L500.2500, L100.0100 #### [facility] [address] [place], [address] Hematocrit (Bld) [Volume fraction] 39.5 % Normal 37-47 [facility] Comment on above: Performed By: #### L 501.5425, L500.2500, L100.0100 #### [facility] [address] [place], [address] Hemoglobin (Bld) [Mass/Vol] 13.1 g/dL Normal 12.0-15.0 [facility] Comment on above: Performed By: #### L 501.5425, L500.2500, L100.0100 #### [facility] [address] [place], [address] IG% 0.400 Normal 0.0-0.9 [facility] Comment on above: Result Comment: IG% - Immature Granulocytes (promyelocytes, myelocytes and metamyelocytes) > 1% indicates that a LEFT SHIFT is Present. Performed By: #### L 501.5425, L500.2500, L100.0100 #### [facility] [address] [place], [address] Lymphocytes/100 WBC (Bld) 27.8 % Normal 19-41 [facility] Comment on above: Performed By: #### L 501.5425, L500.2500, L100.0100 #### [facility] [address] [place], [address] MCH (RBC) [Entitic mass] 29.9 pg Normal 27.0-32.0 [facility] Comment on above: Performed By: #### L 501.5425, L500.2500, L100.0100 #### [facility] [address] [place], [address] MCHC (RBC) [Mass/Vol] 33.2 g/dL Normal 32-36 [facility] Comment on above: Performed By: #### L 501.5425, L500.2500, L100.0100 #### [facility] [address] [place], [address] MCV (RBC) [Entitic vol] 90.2 fL Normal 81-99 [facility] Comment on above: Performed By: #### L 501.5425, L500.2500, L100.0100 #### [facility] [address] [place], [address] Monocytes/100 WBC (Bld) 8.9 % Normal 0-10 [facility] Comment on above: Performed By: #### L 501.5425, L500.2500, L100.0100 #### [facility] [address] [place], [address] Neutrophils/100 WBC (Bld) 56.0 % Normal 47-70 [facility] Comment on above: Performed By: #### L 501.5425, L500.2500, L100.0100 #### [facility] [address] [place], [address] Nucleated RBC (Bld) [#/Vol] 0 10*3/uL Normal 0-5 [facility] Comment on above: Performed By: #### L 501.5425, L500.2500, L100.0100 #### [facility] [address] [place], [address] Platelet mean volume (Bld) [Entitic vol] 9.4 fL Normal 6.2-12.0 [facility] Comment on above: Performed By: #### L 501.5425, L500.2500, L100.0100 #### [facility] [address] [place], [address] Platelets (Bld) [#/Vol] 241 10*3/uL Normal 150-450 [facility] Comment on above: Performed By: #### L 501.5425, L500.2500, L100.0100 #### [facility] [address] [place], [address] RBC (Bld) [#/Vol] 4.38 10*6/uL Normal 4.2-5.4 [facility] Comment on above: Performed By: #### L 501.5425, L500.2500, L100.0100 #### [facility] [address] [place], [address] RDW SD 44.3 fl High 35.1-43.9 [facility] Comment on above: Performed By: #### L 501.5425, L500.2500, L100.0100 #### [facility] [address] [place], [address] WBC (Bld) [#/Vol] 6.9 10*3/uL Normal 4.4-11.0 [facility] Comment on above: Performed By: #### L 501.5425, L500.2500, L100.0100 #### [facility] [address] [place], [address] Chest 1 View (Portable)on Chest 1 View (Portable) [facility] [address] [place] [address] Chest 1 View (Portable) MR#: [id number] Acct: [id number] Name: MONTSERRAT AGUAYO Rep #: [id number] : 1950 F 74 From: Eduar Alston MD PCP: Dr. Liam Wilkins MD Status: REG ER Study: Chest 1 View (Portable) Date of Exam: 06/11/24 Exam# [id number] Ordering Dr: [place] [id number] EXAM: XR CHEST, 1 VIEW CLINICAL INDICATION: chest pain TECHNIQUE: Frontal view of the chest. COMPARISON: 12/26/2018 FINDINGS: LUNGS AND PLEURAL SPACES: Unremarkable. No consolidation or edema. No pneumothorax. No effusion. HEART: Unremarkable. Cardiac silhouette not enlarged. MEDIASTINUM: Central airways and mediastinal contour are unremarkable. BONES/JOINTS: Unremarkable. No acute fracture. SOFT TISSUES: Unremarkable. RAD/Chest 1 View (Portable) IMPRESSION: No radiographic evidence of acute cardiopulmonary disease. Electronically Signed: Eduar Alston MD at 23:11 EST , CC: Dr. Arnoldo Morales MD; Dr. Liam Wilkins MD Photographs Curator: Signed Normal [facility] Emergency Department Summary on 06-11-2024 Emergency Department Summary [facility] Medical Records Department [address] [place] [address] Emergency Department Summary 06/11/24 MR#: [id number] Acct: [id number] Name: MONTSERRAT AGUAYO Rep #: [id number] : 1950 74 From: Arnoldo Morales MD PCP: Dr. Liam Wilkins MD Status:REG ER Location: ED HPI History of Present Illness Chief Complaint: Dizziness Informant: patient Onset/Context/Timing Onset: Today Narrative Narrative: 74-year-old female presents describing dizziness, palpitations, and chest pain. From her description it sounds like she had 2 different types of dizziness today. When she got up this morning more than 12 hours ago, she felt off balance, she felt very poorly like things were moving and like she was going to fall and immediately fell back into bed, and felt like she could not move because the symptoms were going to get worse. That lasted for only a few minutes. She has never had that before. About 1 hour ago or a little more, the patient started having a different type of dizziness, she agrees to feels more faint/lightheaded and associated with frequent palpitations that feel like her heart is skipping a lot. She states she feels a little wobbly still when she tries to get up and walk and it does make the lightheadedness worse but she denies any aquiles vertiginous symptoms, she states her vision feels a little fuzzy but she denies any diplopia or focal visual field deficit or any other focal peripheral neurologic symptoms. No hearing changes or tinnitus. She denies any nausea or vomiting with any of this. She states she followed up as an outpatient with [facility] studder for the first time several weeks ago at [facility] and was basically told to go up on her atorvastatin but did not change any other medications. She states the only heart history that she knows of is a little bit of calcification around the valve. Denies any recent illness. Chest pain that she has right now is just right of sternum and just feels mild without radiation or pleuritic component. PE Risk Factors: Negative for Recent Travel/Surgery, Recent Immobilization, Prior DVT or PE, Cancer or OCP + Smoking + >/=35 PFSH PFSH Medical History Hypothyroidism History of cancer chemotherapy Home Medications ???Medication ???Instructions ???Recorded ???Last Taken ???Type Amitriptyline HCl 25 mg PO QHS 12/13/15 03/18/17 20:00 History Lipitor 40 mg PO QHS 12/13/15 03/18/17 20:00 History Synthroid 100 mcg PO DAILY 12/13/15 03/18/17 07:00 History albuterol sulfate 90 mcg/actuation 1 puff inhalation DAILY PRN PRN 12/26/15 12/26/15 History aerosol inhaler (Ventolin HFA) Shortness Of Breath guaifenesin 1,200 mg tablet, 1,200 mg PO BID 12/26/15 03/18/17 20:00 History extended release 12 hr (Mucus Relief ER) albuterol sulfate 2.5 mg/3 mL 2.5 mg inhalation Q4H PRN PRN 03/19/17 03/18/17 07:00 History (0.083 %) solution for nebulization Shortness Of Breath metoprolol succinate 25 mg 25 mg PO DAILY #30 tabs 06/12/24 Unknown Rx tablet,extended release 24 hr Allergy/AdvReac Type Severity Reaction Status Date / Time typhoid 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 Anaphylaxis Verified 06/11/24 21:30 Surgical History (Updated 06/11/24 @ 21:49 by Megha Fragoso) History of tonsillectomy Hx of mastectomy Social History Smoking Status: Never smoker ROS ROS ED Constitutional Constitutional ED: Denies chills or fever(s) Eyes Eyes: Denies change in vision or diplopia ENT ENT ED: Denies rhinorrhea or sore throat Cardiovascular Cardiovascular: Reports as per HPI, chest pain, lightheadedness and palpitations; Denies leg edema or syncope Respiratory/Chest Respiratory/Chest: Denies cough or dyspnea Gastrointestinal Gastrointestinal: Denies abdominal pain, diarrhea, nausea or vomiting Genitourinary Genitourinary ED: Denies dysuria or hematuria Musculoskeletal Musculoskeletal: Denies back pain or neck pain Integumentary Denies abscess or rash Neurologic Neurologic: Reports as per HPI, abnormal gait and dizziness; Denies abnormal hearing, abnormal speech, headache(s), paresthesias, seizure-like activity or weakness Psychiatric Psychiatric: Denies anxiety or suicidal thoughts EXAM Physical Exam Const Vital Signs: 06/11/24 21:30 06/11/24 21:47 06/11/24 22:30 Temperature 98.1 F Temperature Source Oral Pulse Rate 84 Respiratory Rate 18 Respiratory Effort Normal Non-Labored Respiratory Pattern Normal Blood Pressure 140/96 H Blood Pressure Mean 110 Pulse Ox 100 97 Oxygen Delivery Method Room Air Room Air 06/11/24 23:30 Temperature Temperature Source Pulse Rate 86 Respiratory Rate 16 Respiratory Effort Respiratory Pattern Blood Pressure 116/64 Blood Pressure (more content not included)... Normal [facility] L501.5425on 06-11-2024 TROPONIN-I HS 7 pg/mL Normal 3.0-54.0 [facility] Comment on above: Order Comment: 1 Y Result Comment: Luis Carlos irby Note: New Test Units and Gender Specific Reference Ranges. For more information see Policy Stat Procedure [place] High Sensitivity Troponin (TNIH) and attachments. Performed By: #### L 501.5425, L500.2500, L100.0100 #### [facility] [address] [place], [address] CNOVon 04-23-2024 CNOV Office Visit (FAMPWS ) MONTSERRAT AGUAYO ([id number]) 1950 F Date Time Provider Department 04/23/24 3:00 PM LIAM WILKINS FAMPWS During your visit today, we recorded the following information about you: Pulse Respiration Blood pressure Weight 80/minute 16/minute 114/70 88 kg Liam Wilkins MD 04/23/2024 9:30 PM Signed Chief Complaint Patient presents with: F/U 6 months HPI Montserratshani Aguayo is a 74 year old female who presents here today for 6 month follow up. Patient is here today with hx of Hypothyroidism, elevated A1c, GERD, hyperlipidemia, RSD, Vit D def, mild persistent asthma, Hx of breast cancer on the right side, obisity as well as those reviewed and addressed below Patient has been doing well. In the past used topical cream to treat scalp for precancer. Has noted dents on both sides of the scalp feel rough. Sometimes itchy. Past medical history, appointments, medications, allergies reviewed. Previous Medical History PAST MEDICAL HISTORY Diagnosis Date Acquired hypothyroidism 11/29/2005 Bilateral carotid artery stenosis 07/13/2021 US: 06/2021: Stephen 20-40% 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, right (HCC) 10/05/2017 Cataracts, bilateral 12/20/2016 Some relation to steroids with her asthma. 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 Incomplete tear of left rotator cuff 04/16/2023 Internal hemorrhoids without mention of complication Irritable bowel syndrome with both constipation and diarrhea 07/28/2020 Labral tear of long head of left biceps tendon 04/16/2023 Lichen sclerosus Living will in place 01/04/2022 DPA: Deshawn () Mass of left lower leg 07/03/2018 Benign w/u Metabolic syndrome 04/19/2016 Mild persistent asthma 09/07/2011 Mitral valve disorders(424.0) Mixed hyperlipidemia 11/29/2005 Neural foraminal stenosis of cervical spine 03/21/2022 Mod-sever on the left Neutropenia, drug-induced (HCC) 08/11/2011 Obesity Over weight 10/17/2023 Plantar fasciitis 11/24/2013 Primary insomnia 07/06/2021 Right-sided chest wall pain 10/05/2017 Secondary to breast cancer radiation. RSD (reflex sympathetic dystrophy) Sebaceous cyst 01/20/2014 Spinal stenosis, unspecified region other than cervical 03/02/2006 Tear of left glenoid labrum 04/16/2023 Trigger ring finger of right hand 06/23/2014 Vitamin D deficiency 09/15/2019 Previous Surgical History PAST SURGICAL HISTORY Procedure Laterality Date ADENOIDECTOMY PRIMARY Adenoidectomy BREAST BIOPSY CORE 04/11/2011 right breast 2:00, 4:00 and 10:00 BREAST BIOPSY INCISIONAL 14 years ago right and left breast- benign BREAST RECONSTRUC W FREE FLAP 12/13/2012 bilateral breast BREAST RECONSTRUC W TISS EXPANDR 05/25/2011 right breast with elevation of the serratus flap CARDIAC CATH 03/20/2017 normal, by Dr. Colvin COLONOSCOPY 01/03/2024 repeat 3 years COLONOSCOPY FLX DX W/COLLJ SPEC WHEN PFRMD 04/08/2007 COLONOSCOPY FLX DX W/COLLJ SPEC WHEN PFRMD N/A 09/06/2016 MAC COLONOSCOPY FLX DX W/COLLJ SPEC WHEN PFRMD 02/10/2019 Colonoscopy INSJ TUNNELED CTR VAD W/SUBQ PORT AGE 5 YR/> 07/06/2011 left IJ MASTECTOMY, SIMPLE, COMPLETE 05/25/2011 right breast skin-sparing with SLND/level 1 LND MASTECTOMY, SIMPLE, COMPLETE 12/13/2012 prophylactic left breast PAST SURGICAL HISTORY OF squamous cell skin ca nose, lips, face PAST SURGICAL HISTORY OF 1972 removal of sweat glands (bilateral axilla (right x 2)and groin) PAST SURGICAL HISTORY OF 03/06/2016 removal of polyp at [facility] [employer] COVID-19 VACCINE, AGE 12+ YR (PURPLE TOP) 09/11/2020 first vaccine REM LESION TRUNK,ARM, LEG <0.5 CM 01/24/2014 Exc. deyanira cyst left inframammary REPAIR ROTATOR CUFF,ACUTE Left 07/02/2023 RMVL MOISES CTR VAD W/SUBQ PORT/BUHR MILL OPERATOR CTR/PRPH INSJ 01/18/2012 Removal left IJ port RPR COMPLEX RETINA DETACH VITRECT ANDMEMBRANE PEEL 09/2014 left retina SIGMOIDOSCOPY FLX DX W/COLLJ SPEC BR/WA IF PFRMD 01/27/2002 Sigmoidoscopy TONSILLECTOMY PRIMARY/SECONDARY Tonsillectomy Family History FAMILY HISTORY Problem Relation Age of Onset Breast Cancer Mother dx in her 50's other (uterine cancer) Mother dx before breast cancer Aneurysm Mother Brain Heart Father MT, valve disorder Headache Sister other (other cances) Sister no known family h/o: ovarian; prostate, colon, pancreatic, lung, (more content not included)... Normal [facility] CNPNon 04-23-2024 CNPN Telephone (FAMPWS) OLIVIERMONTSERRAT IRBY ([id number]) 1950 F Date Time Provider Department 04/23/24 NAMRATA CLIFFORD [facility] During your visit today, we recorded the following information about you: Namrata Clifford MA 04/23/2024 3:57 PM Signed Patient forgot to ask in the appointment. When she had her colonoscopy she had stopped her sugar medication. They told her that her sugar was too low and she has never started the medication again. Should she restart she noticed her blood work her sugar was a little high. Namrata Clifford MA Can notify patient via my chart. Liam Wilkins MD 04/23/2024 4:08 PM Signed Advise patient that I still want her to stay of the medication at this time. Namrata Clifford MA 04/23/2024 4:22 PM Signed Patient notified via my chart. ZEINAB Angelo Jeffrey A, MD 05/05/2024 12:18 PM Signed Let patient know I want her to stay off the pioglitazone. Namrata Clifford MA 05/05/2024 12:50 PM Signed Patient notified via my chart. Namrata Clifford MA Allergies As of Date: 04/23/2024 Noted Allergy Reaction TYPHOID VACCINE 05/12/2005 5 - Intolerance ADHESIVE TAPE (ROSINS) 04/17/2011 14 - Other: See Comments Comments: after 2 days area becomes red and itches CATS 05/12/2005 5 - Intolerance DICLOFENAC 01/04/2016 14 - Other: See Comments Comments: elevated liver enz DOGS 05/12/2005 5 - Intolerance DUST 05/12/2005 5 - Intolerance MELOXICAM 01/10/2016 14 - Other: See Comments Comments: Swollen eyelids MOLD 05/12/2005 5 - Intolerance TEGRETOL (CARBAMAZEPINE ANALOGUES)11/24/2008 5 - Intolerance Comments: blood problem Date Reviewed: 04/23/2024 Reviewed by: Liam Wilkins MD - Fully Assessed Reason for Visit: Patient Question [7917] Prescriptions as of 05/05/2024 - atorvastatin (LIPITOR) 80 mg tablet Take 1 tablet by mouth once daily. - amitriptyline (ELAVIL) 25 mg tablet Take 2 tablets by mouth daily at bedtime. - levothyroxine (SYNTHROID) 100 mcg tablet Take 1 tablet by mouth daily before breakfast. - VENTOLIN HFA 90 mcg/actuation inhaler Inhale 2 Puffs as instructed every 4 hours as needed for wheezing/shortness of breath. - VENTOLIN HFA 90 mcg/actuation inhaler Inhale 2 Puffs as instructed every 4 hours as needed. - clobetasol (TEMOVATE) 0.05 % ointment Apply 1 application to affected area two times a day. TO AFFECTED AREA. - fluticasone-salmeterol (ADVAIR, WIXELA) 250-50 mcg/dose inhaler Inhale 1 Puff as instructed two times a day. - acetaminophen (TYLENOL) 500 mg tablet Take 1,000 mg by mouth at bedtime as needed. - albuterol (PROVENTIL) 2.5 mg /3 mL (0.083 %) nebulizer solution inhale 3 milliliters in nebulizer every 4 hours if needed for wheezing /SHORTNESS OF BREATH. USE OVER 5 -15 MINUTES - COMPOUNDED PRESCRIPTION NEBULIZER and supplies FOR HOME USE. DX: J45.30, J45.90. Length of need is life. This is a medically necessary devise for management of patients lung disease. Current machine recently stopped working. While trying to use it started to smoke and stopped. Problem List As Of Date 04/23/2024 Noted Resolved Acquired hypothyroidism [E03.9] 11/29/2005 Mixed hyperlipidemia [E78.2] 11/29/2005 Spinal stenosis, unspecified region other than *03/02/2006 RSD (reflex sympathetic dystrophy) [G90.50] Mitral valve disorders(424.0) [I05.9] Abdominal pain, unspecified site [R10.9] 01/22/2007 09/10/2013 Neck pain [M54.2] 01/27/2011 Cellulitis [L03.90] 06/21/2011 06/08/2014 Neutropenia, drug-induced (HCC) [D70.2] 08/11/2011 Mild persistent asthma [J45.30] 09/07/2011 Plantar fasciitis [M72.2] 11/24/2013 Wrist pain [M25.539] 11/24/2013 06/08/2014 Sebaceous cyst [L72.3] 01/20/2014 Ganglion and cyst of synovium, tendon and bursa*06/23/2014 Trigger ring finger of right hand [M65.341] 06/23/2014 Fatty liver [K76.0] 04/19/2016 Metabolic syndrome [E88.810] 04/19/2016 Gastroesophageal reflux disease without esophag*08/21/2016 Diverticulosis of large intestine [K57.30] Internal hemorrhoids without mention of complic* History of detached retina repair [Z98.890, Z86*12/20/2016 Cataracts, bilateral [H26.9] 12/20/2016 Well adult exam [Z00.00] 12/20/2016 Elevated hemoglobin A1c [R73.09] 09/10/2017 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, right (HCC) [C50.91*10/05/2017 Right-sided chest wall pain [R07.89] 10/05/2017 Class 1 obesity due to excess calories without *12/31/2017 10/17/2023 Mass of left lower leg [R22.42] 07/03/2018 Ex-smoker [Z87.891] History of skin cancer [Z85.828] History of colonic polyps [Z86.0100] 01/06/2019 Vitamin D deficiency [E55.9] 09/15/2019 Irritable bowel syndrome with both constipation*07/28/2020 Bilateral carotid artery stenosis [I65.23] 07/13/[address] [Z78.9] 01/04/2022 Advance directive discussed with patient [Z71.8*01/04/2022 Medication management [Z79.899] 01/04/2022 Neural foraminal stenosi (more content not included)... Normal [facility] Toi 04-19-2024 CNPN Telephone ([facility]) MONTSERRAT AGUAYO ([id number]) 1950 F Date Time Provider Department 04/19/24 ANUJA COLON During your visit today, we recorded the following information about you: Anuja Colon MD 04/19/2024 11:23 AM Addendum I spoke to Montserrat and reviewed her 04/18 lipids and LFTs with her. She states that she has not increased her Lipitor dose to 80 mg po daily and is waiting to discuss this with Dr. Wilkins on 04/23. She will keep us updated and how she wishes to proceed. She is advised that if/when she increases her lipitor dose to 80 mg daily, repeat lipids and LFTs in 4-6 weeks is recommended[address] CT showed trivial calcific plaque in LM. Carotid US showed 20-39% ICA stenosis bilaterally. Goal LDL ideally <70. Allergies As of Date: 04/19/2024 Noted Allergy Reaction TYPHOID VACCINE 05/12/2005 5 - Intolerance ADHESIVE TAPE (ROSINS) 04/17/2011 14 - Other: See Comments Comments: after 2 days area becomes red and itches CATS 05/12/2005 5 - Intolerance DICLOFENAC 01/04/2016 14 - Other: See Comments Comments: elevated liver enz DOGS 05/12/2005 5 - Intolerance DUST 05/12/2005 5 - Intolerance MELOXICAM 01/10/2016 14 - Other: See Comments Comments: Swollen eyelids MOLD 05/12/2005 5 - Intolerance TEGRETOL (CARBAMAZEPINE ANALOGUES)11/24/2008 5 - Intolerance Comments: blood problem Date Reviewed: 02/22/2024 Reviewed by: Rosi Luke MA - Fully Assessed Prescriptions as of 04/19/2024 - amitriptyline (ELAVIL) 25 mg tablet Take 2 tablets by mouth daily at bedtime. - atorvastatin (LIPITOR) 40 mg tablet Take 1 tablet by mouth once daily. - levothyroxine (SYNTHROID) 100 mcg tablet Take 1 tablet by mouth daily before breakfast. - VENTOLIN HFA 90 mcg/actuation inhaler Inhale 2 Puffs as instructed every 4 hours as needed for wheezing/shortness of breath. - VENTOLIN HFA 90 mcg/actuation inhaler Inhale 2 Puffs as instructed every 4 hours as needed. - clobetasol (TEMOVATE) 0.05 % ointment Apply 1 application to affected area two times a day. TO AFFECTED AREA. - ondansetron orally disintegrating (ZOFRAN ODT) 4 mg disintegrating tablet Take 1 tablet by mouth every 8 hours as needed for nausea/vomiting. - docusate sodium (COLACE) 100 mg capsule Take 1 capsule by mouth two times a day. - naproxen (NAPROSYN) 500 mg tablet Take 1 tablet by mouth two times a day as needed (for pain/inflammation). Take with food. - ergocalciferol 50,000 unit capsule (VITAMIN D2, DRISDOL) Every other week - pioglitazone (ACTOS) 30 mg tablet Take 1 tablet by mouth once daily. - fluticasone-salmeterol (ADVAIR, WIXELA) 250-50 mcg/dose inhaler Inhale 1 Puff as instructed two times a day. - sertraline (ZOLOFT) 100 mg tablet Take one tablet by mouth once a day. - acetaminophen (TYLENOL) 500 mg tablet Take 1,000 mg by mouth at bedtime as needed. - albuterol (PROVENTIL) 2.5 mg /3 mL (0.083 %) nebulizer solution inhale 3 milliliters in nebulizer every 4 hours if needed for wheezing /SHORTNESS OF BREATH. USE OVER 5 -15 MINUTES - COMPOUNDED PRESCRIPTION NEBULIZER and supplies FOR HOME USE. DX: J45.30, J45.90. Length of need is life. This is a medically necessary devise for management of patients lung disease. Current machine recently stopped working. While trying to use it started to smoke and stopped. Problem List As Of Date 04/19/2024 Noted Resolved Acquired hypothyroidism [E03.9] 11/29/2005 Mixed hyperlipidemia [E78.2] 11/29/2005 Spinal stenosis, unspecified region other than *03/02/2006 RSD (reflex sympathetic dystrophy) [G90.50] Mitral valve disorders(424.0) [I05.9] Abdominal pain, unspecified site [R10.9] 01/22/2007 09/10/2013 Neck pain [M54.2] 01/27/2011 Cellulitis [L03.90] 06/21/2011 06/08/2014 Neutropenia, drug-induced (HCC) [D70.2] 08/11/2011 Mild persistent asthma [J45.30] 09/07/2011 Plantar fasciitis [M72.2] 11/24/2013 Wrist pain [M25.539] 11/24/2013 06/08/2014 Sebaceous cyst [L72.3] 01/20/2014 Ganglion and cyst of synovium, tendon and bursa*06/23/2014 Trigger ring finger of right hand [M65.341] 06/23/2014 Fatty liver [K76.0] 04/19/2016 Metabolic syndrome [E88.810] 04/19/2016 Gastroesophageal reflux disease without esophag*08/21/2016 Diverticulosis of large intestine [K57.30] Internal hemorrhoids without mention of complic* History of detached retina repair [Z98.890, Z86*12/20/2016 Cataracts, bilateral [H26.9] 12/20/2016 Well adult exam [Z00.00] 12/20/2016 Elevated hemoglobin A1c [R73.09] 09/10/2017 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, right (HCC) [C50.91*10/05/2017 Right-sided chest wall pain [R07.89] 10/05/2017 Class 1 obesity due to excess calories without *12/31/2017 10/17/2023 Mass of left lower leg [R22.42] 07/03/2018 Ex-smoker [Z87.891] History of skin cancer [Z85.828] History of colonic polyps [Z86.0100] 01/06/2019 Vitamin D deficiency [E55.9] (more content not included)... Normal [facility] HbA1c (Bld)on 04-18-2024 Average glucose Estimated from glycated hemoglobin (Bld) [Mass/Vol] 120 mg/dL Normal [facility] Comment on above: Order Comment: Speci men Type: BLOOD SPECIMENOrdering Facility: [facility] Address: [address], [place] [address] Result Comment: eAG: (Estimated average glucose) is a calculated value from HgbA1c and is operations support representative of the average blood glucose level in the last 2-3 month period. Performed By: #### 5 5454-3 ####[facility] LABCLIA [id number] [address] [address] [place] HbA1c (Bld) [Mass fraction] 5.8 % High 4.3-5.6 [facility] Comment on above: Order Comment: Speci men Type: BLOOD SPECIMENOrdering Facility: [facility] Address: [address] [place] [address] Result Comment: Amer ican Diabetes Association guidelines indicate that patients with HgbA1c in the range 5.7-6.4% are at increased risk for development of diabetes, and intervention by lifestyle modification may be beneficial. HgbA1c greater or equal to 6.5% is considered diagnostic of diabetes. Performed By: #### 5 5454-3 ####[facility] LABIA [id number] [place] [address] [place] Hepatic function 2000 panelo n 04-18-2024 Albumin [Mass/Vol] 4.3 g/dL Normal 3.9-4.9 [facility] Comment on above: Order Comment: Coral silver Type: BLOOD SPECIMENOrdering Facility: [facility] Address: [address] [place] [address] Performed By: #### 2 4325-3, LIPNF, 6-3 ####[facility] LABIA [id number] [place] [address] [place] ALP [Catalytic activity/Vol] 80 U/L Normal 34-123 [facility] Comment on above: Order Comment: Coral men Type: BLOOD SPECIMENOrdering Facility: [facility] Address: [address] [place] [address] Performed By: #### 2 4325-3, LIPNF, 3016-3 ####[facility] LABIA [id number] [place] [id number] [place] ALT [Catalytic activity/Vol] 30 U/L Normal 7-38 [facility] Comment on above: Order Comment: Speci men Type: BLOOD SPECIMENOrdering Facility: [facility] Address: [address] [place] [address] Performed By: #### 2 4325-3, LIPNF, 3016-3 ####[facility] LABCLIA [id number] [place] [address] [place] AST [Catalytic activity/Vol] 32 U/L Normal 13-35 [facility] Comment on above: Order Comment: Speci men Type: BLOOD SPECIMENOrdering Facility: [facility] Address: [address] [place] [address] Performed By: #### 2 4325-3, LIPNF, 3015-3 ####[facility] LABCLIA [id number] [place] [address] [place] Bilirubin [Mass/Vol] 0.4 mg/dL Normal 0.2-1.3 [facility] Comment on above: Order Comment: Speci men Type: BLOOD SPECIMENOrdering Facility: [facility] Address: [address] [place] [address] Performed By: #### 2 4325-3, LIPNF, 3015-3 ####[facility] LABCLIA [id number] [place] [address] [place] Bilirubin.conjugated [Mass/Vol] mg/dL Normal <0.2 [facility] Comment on above: Order Comment: Speci men Type: BLOOD SPECIMENOrdering Facility: [facility] Address: [address] [place] [address] Performed By: #### 2 4325-3, LIPNF, 3016-3 ####[facility] LABCLIA [id number] [place] [id number] [place] Protein [Mass/Vol] 7.0 g/dL Normal 6.3-8.0 [facility] Comment on above: Order Comment: Speci men Type: BLOOD SPECIMENOrdering Facility: [facility] Address: [address] [place] [address] Performed By: #### 2 4325-3, LIPNF, 3016-3 ####[facility] LABCLIA [id number] [place] [address] [place] LIPID PANEL, NONFASTINGon Cholesterol [Mass/Vol] 202 mg/dL High <200 [facility] Comment on above: Order Comment: Speci men Type: BLOOD SPECIMENOrdering Facility: [facility] Address: [address] [place] [address] Result Comment: <200 mg/dL, Desirable 200-239 mg/dL, Borderline high >239 mg/dL, High Performed By: #### 2 4325-3, LIPNF, 3016-3 ####[facility] LABCLIA [id number] [place] [address] [place] HDL CHOLESTEROL, NF 93 mg/dL Normal >39 [facility] Comment on above: Order Comment: Speci men Type: BLOOD SPECIMENOrdering Facility: [facility] Address: [address] [place] [address] Result Comment: 40-5 9 mg/dL, Acceptable >59 mg/dL, High: Negative risk factor for coronary heart disease <40 mg/dL, Low: Positive risk factor for coronary heart disease Performed By: #### 2 4325-3, LIPNF, 3016-3 ####[facility] LABCLIA [id number] [place] [address] [place] LDL CHOLESTEROL, NF 96 mg/dL Normal <100 [facility] Comment on above: Order Comment: Speci men Type: BLOOD SPECIMENOrdering Facility: [facility] Address: [address] [place] [address] Result Comment: <100 mg/dL, Optimal 100-129 mg/dL, Near optimal/above optimal 130-159 mg/dL, Borderline high 160-189 mg/dL, High >189 mg/dL, Very high Secondary prevention optimal LDL Cholesterol levels are recommended to be < 70 mg/dL Performed By: #### 2 4325-3, LIPTHELMA, 3015-3 ####[facility] LABCLIA [id number] [place] [address] [place] LDL/HDL RATIO, NF 1.03 mg/dL Normal <2.54 [facility] Comment on above: Order Comment: Speci men Type: BLOOD SPECIMENOrdering Facility: [facility] Address: [address] [place] [address] Result Comment: Refe rence: 1. National Cholesterol Education Program ATP III Guideline At-A-Glance Quick Desk Reference: National Heart, Lung, and Blood [place]. National Institutes of Health. 2001: NIH Publication No. 01-3305. 2. An International Atherosclerosis Society position paper: global recommendations for the management of dyslipidemia: executive summary, Atherosclerosis. 2014: 232(2):410-413. Performed By: #### 2 4325-3, DANIEL, 3015-3 ####[facility] LABCLIA [id number] [place] [address] [place] NON HDL CHOL, NF 109 mg/dL Normal <130 [facility] Comment on above: Order Comment: Speci men Type: BLOOD SPECIMENOrdering Facility: [facility] Address: [address] [place] [address] Result Comment: <130 mg/dL, Optimal 130-159 mg/dL, Near optimal/above optimal 160-189 mg/dL, Borderline high 190-219 mg/dL, High >219 mg/dL, Very high Secondary prevention optimal non HDL Cholesterol levels are recommended to be <100 mg/dL Performed By: #### 2 4325-3, LIPTHELMA, 3015-3 ####[facility] LABCLIA [id number] [place] [address] [place] T CHOL/HDL RATIO NF 2.17 mg/dL Normal <5.10 [facility] Comment on above: Order Comment: Speci men Type: BLOOD SPECIMENOrdering Facility: [facility] Address: [address] [place] [address] Performed By: #### 2 4325-3, LIPNF, 3015-3 ####[facility] LABCLIA [id number] [place] [address] [place] TRIGLYCERIDES, NF 63 mg/dL Normal <150 [facility] Comment on above: Order Comment: Speci men Type: BLOOD SPECIMENOrdering Facility: [facility] Address: [address] [place] [address] Result Comment: <150 mg/dL, Normal 150-199 mg/dL, Borderline high 200-499 mg/dL, High >499 mg/dL, Very high Performed By: #### 2 4325-3, LIPNF, 3015-3 ####[facility] LABCLIA [id number] [place] [address] [place] VLDL CHOLESTEROL, NF 13 mg/dL Normal <30 [facility] Comment on above: Order Comment: Speci men Type: BLOOD SPECIMENOrdering Facility: [facility] Address: [address] [place] [address] Performed By: #### 2 4325-3, LIPNF, 3015-3 ####[facility] LABCLIA [id number] [place] [address] [place] TSH SerPl-aCncon 04-18-2024 TSH Qn 1.570 m[IU]/L Normal 0.270-4.200 [facility] Comment on above: Order Comment: Speci men Type: BLOOD SPECIMENOrdering Facility: [facility] Address: [address] [place] [address] Performed By: #### 2 4325-3, LIPNF, 3015-3 ####[facility] LABCLIA [id number] [place] [address] [place] Large Joint Arthro/Inj: L zulma munoz jointon 02-27-2024 Regina Mcpherson MD 02/27/2024 10:02 AM Large Joint Arthro/Inj: L shoulder joint 02/27/2024 10:02 AM The procedure site was prepped in the usual sterile fashion. Site: L shoulder joint Medications: 80 mg triamcinolone acetonide 40 mg/mL Anesthetics: 4 mL bupivacaine (PF) 0.25 % (2.5 mg/mL) Outcome: Tolerated well, no immediate complications Post-injection instructions were reviewed with the patient and the patient voiced understanding of these instructions. [facility] MG Breast - left Diagnostic for implanton 01-16-2024 IMPRESSION: BENIGN There is no mammographic evidence of malignancy. Return to annual mammogram screening schedule is recommended. Bandar Amaro M.D. djg/:01/16/2024 14:02:51 Family Dinner Service Specialist(s): Malia Ortega [facility] Mammogram BI-RADS: Category 2: Benign Multiple national specialty organizations have released breast cancer screening guidelines for women at average risk for developing breast cancer - guidelines that are based on both evidence and opinion, yet differ on when to start and how often to screen for breast cancer. With representation from Breast Imaging, Internal Medicine, Women's Health, Family Medicine, and Medical/Surgical Oncology, the [facility] has carefully reviewed the data and reached the following consensus: 1) All women should engage in shared decision-making with their providers to decide when to start and how often to screen; 2) All women should have the opportunity to start screening mammography at age 40; 3) For women ages 45-55, we recommend annual screening mammograms; 4) For women ages 55 and over, we support both the transition from an annual to a biennial interval if this aligns more with patient's values and preferences, or continuation with annual screening; 5) All women should discuss with their providers when to stop screening mammograms. Photographs Curator: Criss Transcribe Date/Time: Jan 16 2024 1:17P Dictated by: BANDAR AMARO MD This examination was interpreted and the report reviewed and electronically signed by: BANDAR AMARO MD on Jan 16 2024 2:02PM [facility] DIVISION OF RADIOLOGY * * *Final Report* * * DATE OF EXAM: Jan 16 2024 1:50PM [facility] 0621 - YAQUELIN DIAGNOSTIC LT / PROCEDURE REASON: Abnormal mammogram of left breast * * * * Physician Interpretation * * * * RESULT: #[id number] - [facility] DIAGNOSTIC LT UNILATERAL LEFT DIGITAL DIAGNOSTIC MAMMOGRAM WITH CAD: 01/16/2024 HISTORY: Abnormal Mammogram Of Left Breast / Call back/abnormal mamm: Left/ Calcifications on left TRAM /priors available for comparison. RESULT: TECHNIQUE: The study was acquired using full field digital technology and interpreted from soft copy. Current study was also evaluated with a Computer Aided Detection (CAD). Comparison is made to exams dated: 11/30/2023 mammogram, 11/09/2021 mammogram - [facility], 01/27/2019 mammogram - [facility] [place], and 04/09/2012 mammogram - [facility]. The left breast is almost entirely fatty. 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 No significant masses, calcifications, or other findings are seen in the breast. Specifically, no convincing microcalcifcations are reproduced in the area of interest on screening mammogram. DIVISION OF RADIOLOGY Provider, [facility] - 01/16/2024 * * *Final Report* * * DATE OF EXAM: Jan 16 2024 1:50PM [facility] 0621 - [facility] DIAGNOSTIC LT / PROCEDURE REASON: Abnormal mammogram of left breast * * * * Physician Interpretation * * * * RESULT: #[id number] - [facility] DIAGNOSTIC LT UNILATERAL LEFT DIGITAL DIAGNOSTIC MAMMOGRAM WITH CAD: 01/16/2024 HISTORY: Abnormal Mammogram Of Left Breast / Call back/abnormal mamm: Left/ Calcifications on left TRAM /priors available for comparison. RESULT: TECHNIQUE: The study was acquired using full field digital technology and interpreted from soft copy. Current study was also evaluated with a Computer Aided Detection (CAD). Comparison is made to exams dated: 11/30/2023 mammogram, 11/09/2021 mammogram - [facility], 01/27/2019 mammogram - [facility], and 04/09/2012 mammogram - [facility]. The left breast is almost entirely fatty. 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 No significant masses, calcifications, or other findings are seen in the breast. Specifically, no convincing microcalcifcations are reproduced in the area of interest on screening mammogram. IMPRESSION IMPRESSION: BENIGN There is no mammographic evidence of malignancy. Return to annual mammogram screening schedule is recommended. Bandar Amaro M.D. djg/:01/16/2024 14:02:51 Family Dinner Service Specialist(s): Bre [facility] Mammogram BI-RADS: Category 2: Benign Multiple national specialty organizations have released breast cancer screening guidelines for women at average risk for developing breast cancer - guidelines that are based on both evidence and opinion, yet differ on when to start and how often to screen for breast cancer. With representation from Breast Imaging, Internal Medicine, Women's Health, Family Medicine, and Medical/Surgical Oncology, the [facility] has carefully reviewed the data and reached the following consensus: 1) All women should engage in shared decision-making with their providers to decide when to start and how often to screen; 2) All women should have the opportunity to start screening mammography at age 40; 3) For women ages 45-55, we recommend annual screening mammograms; 4) For women ages 55 and over, we support both the transition from an annual to a biennial interval if this aligns more with patient's values and preferences, or continuation with annual screening; 5) All women should discuss with their providers when to stop screening mammograms. Photographs Curator: Criss Transcribe Date/Time: Jan 16 2024 1:17P Dictated by: BANDAR AMARO MD This examination was interpreted and the report reviewed and electronically signed by: BANDAR AMARO MD on Jan 16 2024 2:02PM EST [facility] Radiology Study observation (narrative) [facility] MG Breast - left Diagnostic for implantOrdered By: Ccf Provider on 01-16-2024 [facility] XR SHOULDER GENERAL 3V OR MO RE AP/TRUE AP/OTHER LEFTon 04-06-2023 [facility] XR Shoulder - left 3 Viewson 04-06-2023 IMPRESSION: No acute osseous abnormality Photographs Curator: DON Transcribe Date/Time: Apr 06 2023 4:25P Dictated by : JENNA EAST MD This examination was interpreted and the report reviewed and electronically signed by: JENNA EAST MD on Apr 06 2023 4:26PM EST DIVISION OF RADIOLOGY * * *Final Report* * * DATE OF EXAM: Apr 06 2023 4:22PM WOX 5252 - XR SHLDR >/=3V AP/REID AP/OTHR LT / PROCEDURE REASON: Left shoulder pain, unspecified chronicity * * * * Physician Interpretation * * * * EXAMINATION: XR SHLDR >/=3V AP/REID AP/OTHR LT CLINICAL HISTORY: Left shoulder pain Technique: XR SHLDR >/=3V AP/REID AP/OTHR LT -- LEFT with 3 views on 3 images Comparison: None RESULT: No acute fracture or dislocation. Mild acromioclavicular joint space narrowing. DIVISION OF RADIOLOGY Provider, [facility] - 04/06/2023 * * *Final Report* * * DATE OF EXAM: Apr 06 2023 4:22PM WOX 5252 - XR SHLDR >/=3V AP/REID AP/OTHR LT / PROCEDURE REASON: Left shoulder pain, unspecified chronicity * * * * Physician Interpretation * * * * EXAMINATION: XR SHLDR >/=3V AP/REID AP/OTHR LT CLINICAL HISTORY: Left shoulder pain Technique: XR SHLDR >/=3V AP/REID AP/OTHR LT -- LEFT with 3 views on 3 images Comparison: None RESULT: No acute fracture or dislocation. Mild acromioclavicular joint space narrowing. IMPRESSION IMPRESSION: No acute osseous abnormality Photographs Curator: [facility] Transcribe Date/Time: Apr 06 2023 4:25P Dictated by : JENNA EAST MD This examination was interpreted and the report reviewed and electronically signed by: JENNA EAST MD on Apr 06 2023 4:26PM EST [facility] Radiology Study observation (narrative) [facility] XR Shoulder - left 3 ViewsOr dered By: [facility] Provider on 04-06-2023 [facility] No Panel Informationon 11-09 [facility] UA DIP, URINE (POC)on 2022 BILIRUBIN UA (POCT) Negative Negative [facility] CLARITY UA (POCT) Clear [facility] COLOR UA (POCT) Yellow [facility] GLUCOSE UA (POCT) Negative Negative mg/dL [facility] HEMOGLOBIN/BLOOD UA (POCT) Negative Negative [facility] KETONE UA (POCT) Negative Negative mg/dL [facility] LEUKOCYTES UA (POCT) Trace Abnormal Negative [facility]) Negative Negative [facility] PH UA (POCT) 5.5 4.5 - 8.0 [facility] Protein Ql (U) Negative Negative mg/dL [facility] SPECIFIC GRAVITY UA (POCT) 1.010 1.005 - 1.030 [facility] UROBILINOGEN UA (POCT) 0.2 E.U./dL Normal E.U./dL [facility] CT FLANK WO IVCONon 10-07-19 [facility] [address] NECK SOFT TISSUE W IVCONo n 09-25-2022 [facility] XR Abdomen Supine and Uprigh ton 09-25-2022 IMPRESSION: Nonobstructive bowel gas pattern Photographs Curator: DON Transcribe Date/Time: Sep 25 2022 4:23P Dictated by : KEVIN MONTESINOS MD This examination was interpreted and the report reviewed and electronically signed by: KEVIN MONTESINOS MD on Sep 25 2022 4:29PM [facility] DIVISION OF RADIOLOGY * * *Final Report* * * DATE OF EXAM: Sep 22 2022 11:52AM WOX [id number] - XR ABDOMEN 1V SUPINE / PROCEDURE REASON: Flank pain * * * * Physician Interpretation * * * * TITLE: XR ABDOMEN 1V SUPINE CLINICAL INDICATION: Flank pain TECHNIQUE: Supine frontal radiograph of the abdomen COMPARISON: None FINDINGS: Nonobstructive bowel gas pattern. Moderate stool burden. No radiographic evidence of urinary tract calculi. Phleboliths in the pelvis. Surgical clips project over the lower abdomen and pelvis. Degenerative changes in the spine. DIVISION OF RADIOLOGY Provider, [place] [facility] [place] - 09/25/2022 * * *Final Report* * * DATE OF EXAM: Sep 22 2022 11:52AM WOX [id number] - XR ABDOMEN 1V SUPINE / PROCEDURE REASON: Flank pain * * * * Physician Interpretation * * * * TITLE: XR ABDOMEN 1V SUPINE CLINICAL INDICATION: Flank pain TECHNIQUE: Supine frontal radiograph of the abdomen COMPARISON: None FINDINGS: Nonobstructive bowel gas pattern. Moderate stool burden. No radiographic evidence of urinary tract calculi. Phleboliths in the pelvis. Surgical clips project over the lower abdomen and pelvis. Degenerative changes in the spine. IMPRESSION IMPRESSION: Nonobstructive bowel gas pattern Photographs Curator: [facility] Transcribe Date/Time: Sep 25 2022 4:23P Dictated by : KEVIN MONTESINOS MD This examination was interpreted and the report reviewed and electronically signed by: KEVIN MONTESINOS MD on Sep 25 2022 4:29PM EST [facility] XR Abdomen Supine and Uprigh tOrdered By: [facility] Provider on 09-25-2022 [facility] XR Ribs - right Views and est PAon 09-25-2022 IMPRESSION: No radiographic evidence of acute osseous abnormality in the right ribs Photographs Curator: [facility] Transcribe Date/Time: Sep 25 2022 4:30P Dictated by : KEVIN MONTESINOS MD This examination was interpreted and the report reviewed and electronically signed by: KEVIN MONTESINOS MD on Sep 25 2022 4:32PM EST DIVISION OF RADIOLOGY * * *Final Report* * * DATE OF EXAM: Sep 22 2022 11:52AM WOX [id number] - XR RIB/CHST 3V AP RIB/OBL/CHST R / PROCEDURE REASON: multiple diagnoses * * * * Physician Interpretation * * * * TITLE: XR RIB/CHST 3V AP RIB/OBL/CHST R CLINICAL INDICATION: Right rib pain TECHNIQUE: 3 view right sided radiographic rib series with inclusion of the single frontal view of the chest for purposes of comparison/symmetry COMPARISON: Chest x-ray dated December 22, 2020 FINDINGS: No acute displaced right rib fracture or radiographic evidence of destructive osseous lesion. Numerous surgical clips project over the bilateral hemithoraces. Degenerative changes in the spine. DIVISION OF RADIOLOGY Provider, [facility] - 09/25/2022 * * *Final Report* * * DATE OF EXAM: Sep 22 2022 11:52AM WOX [id number] - XR RIB/CHST 3V AP RIB/OBL/CHST R / PROCEDURE REASON: multiple diagnoses * * * * Physician Interpretation * * * * TITLE: XR RIB/CHST 3V AP RIB/OBL/CHST R CLINICAL INDICATION: Right rib pain TECHNIQUE: 3 view right sided radiographic rib series with inclusion of the single frontal view of the chest for purposes of comparison/symmetry COMPARISON: Chest x-ray dated December 22, 2020 FINDINGS: No acute displaced right rib fracture or radiographic evidence of destructive osseous lesion. Numerous surgical clips project over the bilateral hemithoraces. Degenerative changes in the spine. IMPRESSION IMPRESSION: No radiographic evidence of acute osseous abnormality in the right ribs Photographs Curator: [facility] Transcribe Date/Time: Sep 25 2022 4:30P Dictated by : KEVIN MONTESINOS MD This examination was interpreted and the report reviewed and electronically signed by: KEVIN MONTESINOS MD on Sep 25 2022 4:32PM EST [facility] No Panel Informationon 09-22 Radiology Study observation (narrative) [facility] UA DIP, URINE (POC)on 2022 BILIRUBIN UA (POCT) Negative Negative [facility] CLARITY UA (POCT) Slightly Cloudy Cl [facility] COLOR UA (POCT) Other [facility] GLUCOSE UA (POCT) Negative Negative mg/dL [facility] HEMOGLOBIN/BLOOD UA (POCT) Trace-intact Abnormal Negative [facility] KETONE UA (POCT) Negative Negative mg/dL [facility] LEUKOCYTES UA (POCT) Trace Abnormal Negative [facility] NITRITE UA (POCT) Negative Negative [facility] PH UA (POCT) 7.0 4.5 - 8.0 [facility] Protein Ql (U) Negative Negative mg/dL [facility] SPECIFIC GRAVITY UA (POCT) 1.010 1.005 - 1.030 [facility] UROBILINOGEN UA (POCT) 0.2 E.U./dL Normal E.U./dL [facility] MRI CERVICAL SPINE WO IVCONo n 03-21-2022 [facility] YAQUELIN DIAGNOSTIC BILATon 11-09 [facility] US BREAST LTD LTon [facility] XR CERV OTHER 4V AP/LAT/OBLo n 11-08-2021 [facility] XR Cervical spine AP and Lat eral and obliqueon 11-08-2021 IMPRESSION: Degenerative changes as detailed in report. Photographs Curator: [facility] Transcribe Date/Time: Nov 08 2021 11:33A Dictated by : ELIZ TOLEDO MD This examination was interpreted and the report reviewed and electronically signed by: ELIZ TOLEDO MD on Nov 08 2021 11:35AM EST [email or web address] E_DIVISION OF RADIOLOGY * * *Final Report* * * DATE OF EXAM: Nov 08 2021 10:09AM WOX [id number] - XR CERVICAL 4V AP/LAT/OBL / PROCEDURE REASON: Neck pain * * * * Physician Interpretation * * * * EXAMINATION: XR CERVICAL 4V AP/LAT/OBL HISTORY: Neck pain in upper cervical region on both sides for a month. Negative injury. TECHNIQUE: XR CERVICAL 4V AP/LAT/OBL Laterality: NOT APPLICABLE Number of different views (projections): 4 M: XB_1 COMPARISON: Comparison is made to prior cervical spine dated 01/20/2011 RESULT: 4 views of the cervical spine demonstrate multilevel degenerative change with vertebral body osteophytosis and disc space narrowing, greatest at C5-6, C6-7 and C7-T1. There are no vertebral body compression deformities and alignment is well maintained. Bilateral obliques demonstrate moderate to severe foraminal narrowing bilaterally from C3 through T1. The atlantoaxial interval and craniocervical junction are intact. There is no prevertebral soft tissue abnormality. [email or web address] E_DIVISION OF RADIOLOGY Provider, Geraldine Valerio [facility] - 11/08/2021 * * *Final Report* * * DATE OF EXAM: Nov 08 2021 10:09AM WOX [id number] - XR CERVICAL 4V AP/LAT/OBL / PROCEDURE REASON: Neck pain * * * * Physician Interpretation * * * * EXAMINATION: XR CERVICAL 4V AP/LAT/OBL HISTORY: Neck pain in upper cervical region on both sides for a month. Negative injury. TECHNIQUE: XR CERVICAL 4V AP/LAT/OBL Laterality: NOT APPLICABLE Number of different views (projections): 4 M: XB_1 COMPARISON: Comparison is made to prior cervical spine dated 01/20/2011 RESULT: 4 views of the cervical spine demonstrate multilevel degenerative change with vertebral body osteophytosis and disc space narrowing, greatest at C5-6, C6-7 and C7-T1. There are no vertebral body compression deformities and alignment is well maintained. Bilateral obliques demonstrate moderate to severe foraminal narrowing bilaterally from C3 through T1. The atlantoaxial interval and craniocervical junction are intact. There is no prevertebral soft tissue abnormality. IMPRESSION IMPRESSION: Degenerative changes as detailed in report. Photographs Curator: [facility] Transcribe Date/Time: Nov 08 2021 11:33A Dictated by : ELIZ TOLEDO MD This examination was interpreted and the report reviewed and electronically signed by: ELIZ TOLEDO MD on Nov 08 2021 11:35AM EST [facility] Radiology Study observation (narrative) [facility] XR Cervical spine AP and Lat eral and obliqueOrdered By: [facility] Provider on 11-08-2021 [facility] XR Chest PA and Lateralon IMPRESSION: No acute radiographic abnormality. Photographs Curator: [facility] Transcribe Date/Time: Dec 22 2020 9:01A Dictated by : PREETI STEPHENS MD This examination was interpreted and the report reviewed and electronically signed by: PREETI STEPHENS MD on Dec 22 2020 9:12AM [facility] DIVISION OF RADIOLOGY * * *Final Report* * * DATE OF EXAM: Dec 22 2020 8:53AM WOX [id number] - XR CHEST 2V FRONTAL/LAT / PROCEDURE REASON: Cough * * * * Physician Interpretation * * * * EXAMINATION: CHEST RADIOGRAPH (2 VIEW FRONTAL & LATERAL) CLINICAL HISTORY: Cough MQ: XC2_6 EXAM DATE/TIME: 12/22/2020 8:53 AM COMPARISON: 12/05/2019 RESULT: Lines, tubes, and devices: None. Lungs and pleura: No consolidation. No lung mass. No pleural effusion. No pneumothorax. Cardiomediastinal silhouette: Normal cardiomediastinal silhouette. Bones and soft tissues: Unremarkable. Mild degenerative change and osteophytosis throughout the dorsal spine. Mild scoliosis DIVISION OF RADIOLOGY Provider, [facility] - 12/22/2020 * * *Final Report* * * DATE OF EXAM: Dec 22 2020 8:53AM WOX [id number] - XR CHEST 2V FRONTAL/LAT / PROCEDURE REASON: Cough * * * * Physician Interpretation * * * * EXAMINATION: CHEST RADIOGRAPH (2 VIEW FRONTAL & LATERAL) CLINICAL HISTORY: Cough MQ: XC2_6 EXAM DATE/TIME: 12/22/2020 8:53 AM COMPARISON: 12/05/2019 RESULT: Lines, tubes, and devices: None. Lungs and pleura: No consolidation. No lung mass. No pleural effusion. No pneumothorax. Cardiomediastinal silhouette: Normal cardiomediastinal silhouette. Bones and soft tissues: Unremarkable. Mild degenerative change and osteophytosis throughout the dorsal spine. Mild scoliosis IMPRESSION IMPRESSION: No acute radiographic abnormality. Photographs Curator: [facility] Transcribe Date/Time: Dec 22 2020 9:01A Dictated by : PREETI STEPHENS MD This examination was interpreted and the report reviewed and electronically signed by: PREETI STEPHENS MD on Dec 22 2020 9:12AM EST [facility] Radiology Study observation (narrative) [facility] XR Chest PA and LateralOrder ed By: [facility] Provider on 12-22-2020 [facility] Vital Signs Date Time Vital Sign Value Performing Clinician Facility 03-04-2025 10:47-0400 Body height 170.2 cm Anuja Colon MD Work Phone: [facility] 03-04-2025 10:47-0400 Body mass index (BMI) [Ratio] 32.46 kg/m2 Anuja Colon MD Work Phone: [facility] 03-04-2025 10:47-0400 Body weight 94 kg Anuja Colon MD Work Phone: [facility] 03-04-2025 10:47-0400 Diastolic blood pressure 64 mm[Hg] Anuja Colon MD Work Phone: [facility] 03-04-2025 10:47-0400 Heart rate 79 /min Anuja Colon MD Work Phone: [facility] 03-04-2025 10:47-0400 SaO2% (BldA) [Mass fraction] 97 % Anuja Colon MD Work Phone: [facility] 03-04-2025 10:47-0400 Systolic blood pressure 126 mm[Hg] Anuja Colon MD Work Phone: [facility] 02-24-2025 09:33-0400 Body height 170.2 cm Jessica Oneil LARGE ENGINE ASSEMBLER.INTEL RECRUITER Work Phone: [facility] 02-24-2025 09:33-0400 Body mass index (BMI) [Ratio] 32.26 kg/m2 Jessica Oneil LARGE ENGINE ASSEMBLER.INTEL RECRUITER Work Phone: [facility] 02-24-2025 09:33-0400 Body weight 93.44 kg Jessica Oneil LARGE ENGINE ASSEMBLER.INTEL RECRUITER Work Phone: [facility] 02-24-2025 09:33-0400 Diastolic blood pressure 71 mm[Hg] Jessica Oneil LARGE ENGINE ASSEMBLER.INTEL RECRUITER Work Phone: [facility] 02-24-2025 09:33-0400 Heart rate 67 /min Jessica Oneil LARGE ENGINE ASSEMBLER.INTEL RECRUITER Work Phone: [facility] 02-24-2025 09:33-0400 Systolic blood pressure 130 mm[Hg] Jessica Oneil LARGE ENGINE ASSEMBLER.INTEL RECRUITER Work Phone: [facility] 01-21-2025 11:38-0400 Body mass index (BMI) [Ratio] 31.33 kg/m2 Obdulia Rowley PA-C Work Phone: [facility] 01-21-2025 11:38-0400 Body temperature 97 [degF] Obdulia Rowley PA-C Work Phone: [facility] 01-21-2025 11:38-0400 Body weight 93.44 kg Obdulia Rowley PA-C Work Phone: [facility] 01-21-2025 11:38-0400 Diastolic blood pressure 78 mm[Hg] Obdulia Rowley PA-C Work Phone: [facility] 01-21-2025 11:38-0400 Heart rate 81 /min Obdulia Rowley PA-C Work Phone: [facility] 01-21-2025 11:38-0400 Respiratory rate 18 /min Obdulia Rowley PA-C Work Phone: [facility] 01-21-2025 11:38-0400 SaO2% (BldA) [Mass fraction] 98 % Obdulia MCCULLOUGH-C Work Phone: [facility] 01-21-2025 11:38-0400 Systolic blood pressure 110 mm[Hg] Obdulia MCCULLOUGH-C Work Phone: [facility] 12-31-2024 14:04-0400 Body mass index (BMI) [Ratio] 31.57 kg/m2 Liam Wilkins MD Work Phone: [facility] 12-31-2024 14:04-0400 Body weight 94.17 kg Liam Wilkins MD Work Phone: [facility] 12-31-2024 14:04-0400 Diastolic blood pressure 80 mm[Hg] Liam Wilkins MD Work Phone: [facility] 12-31-2024 14:04-0400 Heart rate 84 /min Liam Wilkins MD Work Phone: [facility] 12-31-2024 14:04-0400 Respiratory rate 16 /min Liam Wilkins MD Work Phone: [facility] 12-31-2024 14:04-0400 Systolic blood pressure 118 mm[Hg] Liam Wilknis MD Work Phone: [facility] 11-26-2024 08:56-0400 SaO2% (BldA) [Mass fraction] 98 % Obdulia MCCULLOUGH-C Work Phone: [facility] Comment on above: after albuterol treatment 11-26-2024 08:04-0400 Body mass index (BMI) [Ratio] 30.72 kg/m2 Obdulia MCCULLOUGH-C Work Phone: [facility] 11-26-2024 08:04-0400 Body temperature 97 [degF] Obdulia MCCULLOUGH-C Work Phone: [facility] 11-26-2024 08:04-0400 Body weight 91.63 kg Obdulia MCCULLOUGH-C Work Phone: [facility] 11-26-2024 08:04-0400 Diastolic blood pressure 70 mm[Hg] Obdulia Rowley PA-C Work Phone: [facility] 11-26-2024 08:04-0400 Heart rate 71 /min Obdulia Rowley PA-C Work Phone: [facility] 11-26-2024 08:04-0400 Respiratory rate 18 /min Obdulia Rowley PA-C Work Phone: [facility] 11-26-2024 08:04-0400 Systolic blood pressure 128 mm[Hg] Obdulia Rowley PA-C Work Phone: [facility] 11-21-2024 09:37-0400 Body mass index (BMI) [Ratio] 30.85 kg/m2 Liam Gonzales LARGE ENGINE ASSEMBLER.INTEL RECRUITER Work Phone: [facility] 11-21-2024 09:37-0400 Body temperature 97.11 [degF] Liam Candelarialance LARGE ENGINE ASSEMBLER.INTEL RECRUITER Work Phone: [facility] 11-21-2024 09:37-0400 Body weight 92 kg Liam Gonzales LARGE ENGINE ASSEMBLER.INTEL RECRUITER Work Phone: [facility] 11-21-2024 09:37-0400 Diastolic blood pressure 68 mm[Hg] Liam Candelarialance LARGE ENGINE ASSEMBLER.INTEL RECRUITER Work Phone: [facility] 11-21-2024 09:37-0400 Heart rate 78 /min Liam Gonzales LARGE ENGINE ASSEMBLER.INTEL RECRUITER Work Phone: [facility] 11-21-2024 09:37-0400 Respiratory rate 18 /min Liam Gonzales LARGE ENGINE ASSEMBLER.INTEL RECRUITER Work Phone: [facility] 11-21-2024 09:37-0400 SaO2% (BldA) [Mass fraction] 98 % Liam Gonzales LARGE ENGINE ASSEMBLER.INTEL RECRUITER Work Phone: [facility] 11-21-2024 09:37-0400 Systolic blood pressure 112 mm[Hg] Liam Gonzales LARGE ENGINE ASSEMBLER.INTEL RECRUITER Work Phone: [facility] 10-29-2024 08:38-0400 Body height 172.7 cm Liam Wilkins MD Work Phone: [facility] 10-29-2024 08:38-0400 Body mass index (BMI) [Ratio] 30.71 kg/m2 Liam Wilkins MD Work Phone: [facility] 10-29-2024 08:38-0400 Body weight 91.63 kg Liam Wilkins MD Work Phone: [facility] 10-29-2024 08:38-0400 Diastolic blood pressure 72 mm[Hg] Liam Wilkins MD Work Phone: [facility] 10-29-2024 08:38-0400 Heart rate 64 /min Liam Wilkins MD Work Phone: [facility] 10-29-2024 08:38-0400 Respiratory rate 16 /min Liam Wilkins MD Work Phone: [facility] 10-29-2024 08:38-0400 Systolic blood pressure 118 mm[Hg] Liam Wilkins MD Work Phone: [facility] 06-16-2024 15:09-0500 Body mass index (BMI) [Ratio] 30.41 kg/m2 Jojo Anderson APRN.INTEL RECRUITER Work Phone: [facility] 06-16-2024 15:09-0500 Body weight 90.72 kg Jojo Anderson APRN.INTEL RECRUITER Work Phone: [facility] 06-16-2024 15:09-0500 Diastolic blood pressure 69 mm[Hg] Jojo Anderson APRN.INTEL RECRUITER Work Phone: [facility] 06-16-2024 15:09-0500 Heart rate 82 /min Jojo Anderson APRN.INTEL RECRUITER Work Phone: [facility] 06-16-2024 15:09-0500 Systolic blood pressure 141 mm[Hg] Jojo Anderson APRN.INTEL RECRUITER Work Phone: [facility] 04-23-2024 14:47-0400 Body mass index (BMI) [Ratio] 29.5 kg/m2 Liam Wilkins MD Work Phone: [facility] 04-23-2024 14:47-0400 Body weight 88 kg Liam Wilkins MD Work Phone: [facility] 04-23-2024 14:47-0400 Diastolic blood pressure 70 mm[Hg] Liam Wilkins MD Work Phone: [facility] 04-23-2024 14:47-0400 Heart rate 80 /min Liam Wilkins MD Work Phone: [facility] 04-23-2024 14:47-0400 Respiratory rate 16 /min Liam Wilkins MD Work Phone: [facility] 04-23-2024 14:47-0400 Systolic blood pressure 114 mm[Hg] Liam Wilkins MD Work Phone: [facility] 02-22-2024 09:09-0400 Body height 172.7 cm Anuja Colon MD Work Phone: [facility] 02-22-2024 09:09-0400 Body mass index (BMI) [Ratio] 29.16 kg/m2 Anuja Colon MD Work Phone: [facility] 02-22-2024 09:09-0400 Body weight 87 kg Anuja Colon MD Work Phone: [facility] 02-22-2024 09:09-0400 Diastolic blood pressure 66 mm[Hg] Anuja Colon MD Work Phone: [facility] 02-22-2024 09:09-0400 Heart rate 88 /min Anuja Colon MD Work Phone: [facility] 02-22-2024 09:09-0400 SaO2% (BldA) [Mass fraction] 98 % Anuja Colon MD Work Phone: [facility] 02-22-2024 09:09-0400 Systolic blood pressure 106 mm[Hg] Anuja Colon MD Work Phone: [facility] 11-13-2023 08:29-0400 Body height 172.7 cm Sangeetha South MD Work Phone: [facility] 11-13-2023 08:29-0400 Body mass index (BMI) [Ratio] 29.19 kg/m2 Sangeetha South MD Work Phone: [facility] 11-13-2023 08:29-0400 Body weight 87.09 kg Sangeetha South MD Work Phone: [facility] 11-13-2023 08:29-0400 Diastolic blood pressure 82 mm[Hg] Sangeetha South MD Work Phone: [facility] 11-13-2023 08:29-0400 Systolic blood pressure 128 mm[Hg] Sangeetha South MD Work Phone: [facility] 11-09-2023 14:52-0400 Body mass index (BMI) [Ratio] 29.19 kg/m2 Dianna Eller MD Work Phone: [facility] 11-09-2023 14:52-0400 Body weight 87.09 kg Dianna Eller MD Work Phone: [facility] 11-09-2023 14:52-0400 Diastolic blood pressure 62 mm[Hg] Dianna Eller MD Work Phone: [facility] 11-09-2023 14:52-0400 Heart rate 84 /min Dianna Eller MD Work Phone: [facility] 11-09-2023 14:52-0400 Systolic blood pressure 116 mm[Hg] Dianna Eller MD Work Phone: [facility] 11-09-2023 14:27-0400 Body mass index (BMI) [Ratio] 29.19 kg/m2 Sangeetha South MD Work Phone: [facility] 11-09-2023 14:27-0400 Body weight 87.09 kg Sangeetha South MD Work Phone: [facility] 11-09-2023 14:27-0400 Diastolic blood pressure 62 mm[Hg] Sangeetha South MD Work Phone: [facility] 11-09-2023 14:27-0400 Systolic blood pressure 116 mm[Hg] Sangeetha South MD Work Phone: [facility] 10-17-2023 18:06-0400 Body height 172.7 cm Liam Wilkins MD Work Phone: [facility] 10-17-2023 18:06-0400 Body mass index (BMI) [Ratio] 29.8 kg/m2 Liam Wilkins MD Work Phone: [facility] 10-17-2023 18:06-0400 Body weight 88.91 kg Liam Wilkins MD Work Phone: [facility] 10-17-2023 18:06-0400 Diastolic blood pressure 70 mm[Hg] Liam Wilkins MD Work Phone: [facility] 10-17-2023 18:06-0400 Heart rate 84 /min Liam Wilkins MD Work Phone: [facility] 10-17-2023 18:06-0400 Respiratory rate 16 /min Liam Wilkins MD Work Phone: [facility] 10-17-2023 18:06-0400 Systolic blood pressure 118 mm[Hg] Liam Wilkins MD Work Phone: [facility] 06-13-2023 09:18-0500 Body height 172.7 cm Pacc 1 Work Phone: [facility] 06-13-2023 09:18-0500 Body temperature 97.7 [degF] Pacc 1 Work Phone: [facility] 06-13-2023 09:18-0500 Body weight 92.08 kg Pacc 1 Work Phone: [facility] 06-13-2023 09:18-0500 Diastolic blood pressure 88 mm[Hg] Pacc 1 Work Phone: [facility] 06-13-2023 09:18-0500 Heart rate 80 /min Pacc 1 Work Phone: [facility] 06-13-2023 09:18-0500 Respiratory rate 16 /min Pacc 1 Work Phone: [facility] 06-13-2023 09:18-0500 SaO2% (BldA) [Mass fraction] 96 % Pacc 1 Work Phone: [facility] 06-13-2023 09:18-0500 Systolic blood pressure 122 mm[Hg] Pacc 1 Work Phone: [facility] 04-17-2023 11:43-0400 Body weight 94.35 kg Liam Wilkins MD Work Phone: [facility] 04-17-2023 11:43-0400 Diastolic blood pressure 60 mm[Hg] Liam Wilkins MD Work Phone: [facility] 04-17-2023 11:43-0400 Heart rate 54 /min Liam Wilkins MD Work Phone: [facility] 04-17-2023 11:43-0400 Respiratory rate 16 /min Liam Wilkins MD Work Phone: [facility] 04-17-2023 11:43-0400 Systolic blood pressure 122 mm[Hg] Liam Wilkins MD Work Phone: [facility] 04-06-2023 15:33-0400 Body weight 92.99 kg Liam Wilkins MD Work Phone: [facility] 04-06-2023 15:33-0400 Diastolic blood pressure 76 mm[Hg] Liam Wilkins MD Work Phone: [facility] 04-06-2023 15:33-0400 Heart rate 80 /min Liam Wilkins MD Work Phone: [facility] 04-06-2023 15:33-0400 Respiratory rate 14 /min Liam Wilkins MD Work Phone: [facility] 04-06-2023 15:33-0400 Systolic blood pressure 132 mm[Hg] Liam Wilkins MD Work Phone: [facility] 02-10-2023 10:18-0400 Body weight 95.71 kg Liam Wilkins MD Work Phone: [facility] 02-10-2023 10:18-0400 Diastolic blood pressure 70 mm[Hg] Liam Wilkins MD Work Phone: [facility] 02-10-2023 10:18-0400 Heart rate 68 /min Liam Wilkins MD Work Phone: [facility] 02-10-2023 10:18-0400 Respiratory rate 16 /min Liam Wilkins MD Work Phone: [facility] 02-10-2023 10:18-0400 Systolic blood pressure 118 mm[Hg] Liam Wilkins MD Work Phone: [facility] 01-03-2023 14:50-0400 Body temperature 98.29 [degF] Jney Athy PA-C Work Phone: [facility] 01-03-2023 14:50-0400 Body weight 97.43 kg Jeny Athy PA-C Work Phone: [facility] 01-03-2023 14:50-0400 Diastolic blood pressure 68 mm[Hg] Jeny Athy PA-C Work Phone: [facility] 01-03-2023 14:50-0400 Heart rate 100 /min Jeny Athy PA-C Work Phone: [facility] 01-03-2023 14:50-0400 Respiratory rate 21 /min Jeyn Athy PA-C Work Phone: [facility] 01-03-2023 14:50-0400 SaO2% (BldA) [Mass fraction] 96 % Jeny Athy PA-C Work Phone: [facility] 01-03-2023 14:50-0400 Systolic blood pressure 124 mm[Hg] Jeny Athy PA-C Work Phone: [facility] 10-25-2022 18:33-0400 Body weight 98.43 kg Liam Wilkins MD Work Phone: [facility] 10-25-2022 18:33-0400 Diastolic blood pressure 74 mm[Hg] Liam Wilkins MD Work Phone: [facility] 10-25-2022 18:33-0400 Heart rate 72 /min Liam Wilkins MD Work Phone: [facility] 10-25-2022 18:33-0400 Respiratory rate 16 /min Liam Wilkins MD Work Phone: [facility] 10-25-2022 18:33-0400 Systolic blood pressure 124 mm[Hg] Liam Wlikins MD Work Phone: [facility] 09-22-2022 10:35-0400 Body temperature 99.61 [degF] Obdulia Rowley PA-C Work Phone: [facility] 09-22-2022 10:35-0400 Body weight 98.43 kg Obdulia Rowley PA-C Work Phone: [facility] 09-22-2022 10:35-0400 Diastolic blood pressure 82 mm[Hg] Obdulia Rowley PA-C Work Phone: [facility] 09-22-2022 10:35-0400 Heart rate 60 /min Obdulia Rowley PA-C Work Phone: [facility] 09-22-2022 10:35-0400 Respiratory rate 18 /min Obdulia Rowley PA-C Work Phone: [facility] 09-22-2022 10:35-0400 Systolic blood pressure 132 mm[Hg] Obdulia Rowley PA-C Work Phone: [facility] 09-15-2022 09:10-0400 Body temperature 97.7 [degF] Liam Gonzales LARGE ENGINE ASSEMBLER.INTEL RECRUITER Work Phone: [facility] 09-15-2022 09:10-0400 Diastolic blood pressure 82 mm[Hg] Liam Gonzales LARGE ENGINE ASSEMBLER.INTEL RECRUITER Work Phone: [facility] 09-15-2022 09:10-0400 Heart rate 110 /min Liam Gonzales LARGE ENGINE ASSEMBLER.INTEL RECRUITER Work Phone: [facility] 09-15-2022 09:10-0400 Respiratory rate 18 /min Liam Gonzales LARGE ENGINE ASSEMBLER.INTEL RECRUITER Work Phone: [facility] 09-15-2022 09:10-0400 SaO2% (BldA) [Mass fraction] 97 % Liam Gonzales LARGE ENGINE ASSEMBLER.INTEL RECRUITER Work Phone: [facility] 09-15-2022 09:10-0400 Systolic blood pressure 148 mm[Hg] Liam Gonzales LARGE ENGINE ASSEMBLER.INTEL RECRUITER Work Phone: [facility] 09-09-2022 09:08-0400 Body height 170.8 cm Liam Wilkins MD Work Phone: [facility] 09-09-2022 09:08-0400 Body weight 99.79 kg Liam Wilkins MD Work Phone: [facility] 09-09-2022 09:08-0400 Diastolic blood pressure 82 mm[Hg] Liam Wilkins MD Work Phone: [facility] 09-09-2022 09:08-0400 Heart rate 70 /min Liam Wilkins MD Work Phone: [facility] 09-09-2022 09:08-0400 Respiratory rate 16 /min Liam Wilkins MD Work Phone: [facility] 09-09-2022 09:08-0400 Systolic blood pressure 138 mm[Hg] Liam Wilkins MD Work Phone: [facility] 08-16-2022 08:45-0500 Body height 172.7 cm Leslie Ricodon PA-C Work Phone: [facility] 08-16-2022 08:45-0500 Body weight 101.52 kg Leslie Ney PA-C Work Phone: [facility] 08-16-2022 08:45-0500 Diastolic blood pressure 72 mm[Hg] Leslie Ney PA-C Work Phone: [facility] 08-16-2022 08:45-0500 Heart rate 85 /min Leslie Ney PA-C Work Phone: [facility] 08-16-2022 08:45-0500 Respiratory rate 18 /min Leslie Ney PA-C Work Phone: [facility] 08-16-2022 08:45-0500 Systolic blood pressure 146 mm[Hg] Leslie Ney PA-C Work Phone: [facility] 05-23-2022 09:19-0500 Diastolic blood pressure 87 mm[Hg] Ramiro Barnett MD Work Phone: [facility] 05-23-2022 09:19-0500 Heart rate 72 /min Ramiro Barnett MD Work Phone: [facility] 05-23-2022 09:19-0500 Respiratory rate 18 /min Ramiro Barnett MD Work Phone: [facility] 05-23-2022 09:19-0500 SaO2% (BldA) [Mass fraction] 96 % Ramiro Barnett MD Work Phone: [facility] 05-23-2022 09:19-0500 Systolic blood pressure 123 mm[Hg] Ramiro Barnett MD Work Phone: [facility] 05-17-2022 07:25-0500 Body height 170.2 cm Margarita Traylor LARGE ENGINE ASSEMBLER.INTEL RECRUITER Work Phone: [facility] 05-17-2022 07:25-0500 Body weight 97.07 kg Margarita Traylor LARGE ENGINE ASSEMBLER.INTEL RECRUITER Work Phone: [facility] 04-20-2022 08:31-0400 Heart rate 84 /min Ramiro Barnett MD Work Phone: [facility] 04-20-2022 08:31-0400 Respiratory rate 16 /min Ramiro Barnett MD Work Phone: [facility] 04-20-2022 08:31-0400 SaO2% (BldA) [Mass fraction] 97 % Ramiro Barnett MD Work Phone: [facility] 03-21-2022 10:33-0400 Body temperature 97.2 [degF] Jeny Athy PA-C Work Phone: [facility] 03-21-2022 10:33-0400 Diastolic blood pressure 84 mm[Hg] Jeny Athy PA-C Work Phone: [facility] 03-21-2022 10:33-0400 Heart rate 82 /min Jeny Athy PA-C Work Phone: [facility] 03-21-2022 10:33-0400 Respiratory rate 18 /min Jeny Athy PA-C Work Phone: [facility] 03-21-2022 10:33-0400 SaO2% (BldA) [Mass fraction] 99 % Jeny Athy PA-C Work Phone: [facility] 03-21-2022 10:33-0400 Systolic blood pressure 126 mm[Hg] Jeny Athy PA-C Work Phone: [facility] 03-03-2022 10:33-0400 Body weight 97.07 kg Liam Wilkins MD Work Phone: [facility] 03-03-2022 10:33-0400 Diastolic blood pressure 80 mm[Hg] Liam Wilkins MD Work Phone: [facility] 03-03-2022 10:33-0400 Heart rate 72 /min Liam Wilkins MD Work Phone: [facility] 03-03-2022 10:33-0400 Respiratory rate 16 /min Liam Wilkins MD Work Phone: [facility] 03-03-2022 10:33-0400 Systolic blood pressure 138 mm[Hg] Liam Wilkins MD Work Phone: [facility] 02-22-2022 07:25-0400 Body temperature 96.91 [degF] Liam Gonzales APRN.CNP Work Phone: [facility] 02-22-2022 07:25-0400 Body weight 98.43 kg [facility] LARGE ENGINE ASSEMBLER.INTEL RECRUITER Work Phone: [facility] 02-22-2022 07:25-0400 Diastolic blood pressure 80 mm[Hg] [facility] LARGE ENGINE ASSEMBLER.INTEL RECRUITER Work Phone: [facility] 02-22-2022 07:25-0400 Heart rate 90 /min [facility] LARGE ENGINE ASSEMBLER.INTEL RECRUITER Work Phone: [facility] 02-22-2022 07:25-0400 Respiratory rate 16 /min [facility] LARGE ENGINE ASSEMBLER.INTEL RECRUITER Work Phone: [facility] 02-22-2022 07:25-0400 SaO2% (BldA) [Mass fraction] 97 % [facility] LARGE ENGINE ASSEMBLER.INTEL RECRUITER Work Phone: [facility] 02-22-2022 07:25-0400 Systolic blood pressure 122 mm[Hg] [facility] LARGE ENGINE ASSEMBLER.INTEL RECRUITER Work Phone: [facility] 01-04-2022 10:46-0400 Body weight 99.79 kg Liam Wilkins MD Work Phone: [facility] 01-04-2022 10:46-0400 Diastolic blood pressure 76 mm[Hg] Liam Wilkins MD Work Phone: [facility] 01-04-2022 10:46-0400 Heart rate 68 /min Liam Wilkins MD Work Phone: [facility] 01-04-2022 10:46-0400 Respiratory rate 16 /min Liam Wilkins MD Work Phone: [facility] 01-04-2022 10:46-0400 Systolic blood pressure 126 mm[Hg] Liam Wilkins MD Work Phone: [facility] 11-08-2021 09:04-0400 Body weight 100.25 kg Liam Wilkins MD Work Phone: [facility] 11-08-2021 09:04-0400 Diastolic blood pressure 78 mm[Hg] Liam Wilkins MD Work Phone: [facility] 11-08-2021 09:04-0400 Heart rate 78 /min Liam Wilkins MD Work Phone: [facility] 11-08-2021 09:04-0400 Respiratory rate 14 /min Liam Wilkins MD Work Phone: [facility] 11-08-2021 09:04-0400 Systolic blood pressure 130 mm[Hg] Liam Wilkins MD Work Phone: [facility] 11-02-2021 14:17-0400 Body height 171 cm Bala Masci DO Work Phone: [facility] 11-02-2021 14:17-0400 Body temperature 97.9 [degF] Bala Masci DO Work Phone: [facility] 11-02-2021 14:17-0400 Body weight 100.25 kg Bala Masci DO Work Phone: [facility] 11-02-2021 14:17-0400 Diastolic blood pressure 88 mm[Hg] Bala Masci DO Work Phone: [facility] 11-02-2021 14:17-0400 Heart rate 72 /min Bala Masci DO Work Phone: [facility] 11-02-2021 14:17-0400 SaO2% (BldA) [Mass fraction] 95 % Bala Masci DO Work Phone: [facility] 11-02-2021 14:17-0400 Systolic blood pressure 133 mm[Hg] Bala Masci DO Work Phone: [facility] Encounters Encounter Date Encounter Type Care Provider Facility Start: 03-04-2025 ambulatory Liam Lopez y:[facility] Start: 03-04-2025 End: 03-04-2025 Patient encounter procedure Anuja Colon MD Work Phone: Cardiology Comment on above: Palpitations (Primar y Dx); Hyperlipidemia, unspecified hyperlipidemia type Start: 03-02-2025 End: 03-02-2025 Refill Liam Wilkins MD Work Phone: [facility] Comment on above: Refill Request Start: 02-27-2025 End: 02-27-2025 E-mail encounter from caregiver Jessica Oneil LARGE ENGINE ASSEMBLER.INTEL RECRUITER Work Phone: [facility] Start: 02-27-2025 End: 02-27-2025 Follow-up encounter Jessica Nation Thad LARGE ENGINE ASSEMBLER.INTEL RECRUITER Work Phone: [facility] Comment on above: Follow up Start: 02-24-2025 End: 02-24-2025 Patient encounter procedure Jessica Nation Thad LARGE ENGINE ASSEMBLER.INTEL RECRUITER Work Phone: NEUROLOGY Comment on above: Brain aneurysm (HCC) (Primary Dx); Family history of brain aneurysm Start: 02-24-2025 End: 02-24-2025 ambulatory JESSICA ONEIL Facility:[facility] Start: 02-13-2025 End: 02-27-2025 Telephone encounter Neurology Provider Neurology Comment on above: Future Appointment ( [place] Any) Start: 02-10-2025 End: 02-10-2025 Telephone encounter Marvin Ivory MD Work Phone: [facility] Start: 02-02-2025 End: 02-03-2025 Telephone encounter Liam Wilkins MD Work Phone: [facility] Comment on above: MRA brain results Start: 01-31-2025 ambulatory UNKNOWN PROVIDER Facili ty:[facility] Start: 01-31-2025 End: 01-31-2025 Subsequent hospital visit by physician [facility] (1.5t) Radiology Comment on above: Family history of br ain aneurysm [Z82.49] Start: 01-21-2025 End: 01-21-2025 Follow-up encounter Obdulia Rowley PA-C Work Phone: [facility] Start: 01-21-2025 End: 01-21-2025 Subsequent hospital visit by physician [facility] Work Phone: Radiology Comment on above: Foot pain, left [M79 .672] Start: 01-21-2025 End: 01-21-2025 Office outpatient visit 15 minutes Obdulia Rowley PA-C Work Phone: [facility] Comment on above: Foot pain, left (Mckayla camara Dx); Fall, initial encounter Start: 01-21-2025 End: 01-21-2025 ambulatory Liam Wilkins MD Work Phone: [facility] [place] Comment on above: Foot Pain Start: 01-01-2025 End: 01-01-2025 Patient encounter procedure [employer] [facility]/Gynecology Start: 01-01-2025 End: 01-01-2025 ambulatory [employer] [facility] Work Phone: OB/Gynecology Start: 01-01-2025 End: 01-01-2025 Patient encounter status [facility] Start: 01-01-2025 End: 01-01-2025 Subsequent hospital visit by physician Screen Mammo [facility] Mammogram Comment on above: Encounter for gyneco logical examination (general) (routine) without abnormal findings [Z01.419] Start: 12-31-2024 End: 03-02-2025 Refill Liam Wilkins MD Work Phone: [facility] Comment on above: Refill Request Eye Pain Right Eye Acute right eye pain (Primary Dx); Pain of right eye; Medication management Acute right eye pain [H57.11] Results Start: 12-15-2024 End: 02-14-2025 Refill Liam Wilkins MD Work Phone: [facility] Comment on above: Refill Request Patient Question Start: 12-11-2024 ambulatory LIAM Ardon ty:[facility] Start: 12-11-2024 End: 12-11-2024 Subsequent hospital visit by physician [facility] Work Phone: [facility] Comment on above: Encounter for screen ing for osteoporosis [Z13.820] Start: 11-26-2024 End: 11-26-2024 Follow-up encounter Obdulia Rowley PA-C Work Phone: [facility] [place] Start: 11-26-2024 ambulatory LIAM Ardon ty:[facility] Start: 11-26-2024 End: 11-26-2024 Subsequent hospital visit by physician [facility] Work Phone: Radiology Comment on above: URI, acute [J06.9] Start: 11-26-2024 End: 11-26-2024 Office outpatient visit 25 minutes Obdulia Rowley PA-C Work Phone: [facility] Comment on above: URI, acute (Primary Dx); Mild intermittent asthma with acute exacerbation (HCC) Start: 11-26-2024 End: 11-26-2024 ambulatory LIAM WILKINS Facility:[facility] Start: 11-25-2024 End: 11-25-2024 Telephone encounter Liam Wilkins MD Work Phone: [facility] Comment on above: Insurance Authorizat ion Start: 11-21-2024 End: 11-21-2024 Office outpatient visit 25 minutes Liam Gonzales APRN.CNP Work Phone: [facility] Comment on above: Mild intermittent as thma with acute exacerbation (HCC) (Primary Dx) Start: 11-21-2024 End: 11-21-2024 Refill Liam Wilkins MD Work Phone: [facility] Comment on above: Refill Request Start: 11-12-2024 End: 11-12-2024 ambulatory LIAM WILKINS Facility:[facility] Start: 11-12-2024 Encounter for gynecological examination (general) (routine) without abnormal findings RAMAN MACIEL [facility] Start: 10-29-2024 Encounter for genera l adult medical examination without abnormal findings LIAM WILKINS [facility] Start: 10-29-2024 End: 10-29-2024 Patient encounter procedure Liam Wilkins MD Work Phone: [facility] Comment on above: Well adult exam (Mckayla jax Dx); Mixed hyperlipidemia; Acquired hypothyroidism; Elevated hemoglobin A1c; Gastroesophageal reflux disease without esophagitis; Mild persistent asthma without complication (HCC); Nonrheumatic aortic valve stenosis; 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, right (HCC); Neutropenia, drug-induced (HCC); RSD (reflex sympathetic dystrophy); Fatty liver; Irritable bowel syndrome with both constipation and diarrhea; Advance directive discussed with patient; Encounter for immunization; Skin cancer screening; Screening for depression Start: 10-29-2024 End: 10-29-2024 Patient encounter status Liam Wilkins MD Work Phone: [facility] Work Phone: Start: 10-29-2024 End: 10-29-2024 ambulatory LIAM WILKINS Facility:[facility] Start: 10-27-2024 End: 10-27-2024 ambulatory LIAM WILKINS Facility:[facility] Start: 10-06-2024 End: 10-06-2024 Refill Liam Wilkins MD Work Phone: [facility] [place] Comment on above: Refill Request Start: 09-25-2024 End: 09-25-2024 Refill Liam Wilkins MD Work Phone: [facility] [place] Comment on above: Refill Request Start: 09-22-2024 End: 09-22-2024 Chart abstracting Liam Wilkins MD Work Phone: [facility] Comment on above: Outside Diabetic Eye Exam Start: 09-05-2024 End: 09-05-2024 Refill Liam Wilkins MD Work Phone: [address] [place] [address] Comment on above: Rx Refills Start: 08-15-2024 End: 08-15-2024 ambulatory LIAM WILKINS Facility:[facility] Start: 08-15-2024 End: 08-15-2024 E-mail encounter from caregiver Anuja Colon MD Work Phone: Cardiology Start: 08-15-2024 End: 08-15-2024 Patient encounter procedure Anuja Colon MD Work Phone: Cardiology Comment on above: 08/21 Appointment Left shoulder pain, unspecified chronicity (Primary Dx); S/P shoulder surgery Start: 08-12-2024 End: 08-12-2024 ambulatory Sherry Swain [facility] Physical Therapy Comment on above: Vertigo (Primary Dx) Start: 07-28-2024 End: 07-28-2024 Telephone encounter Jojo Anderson APRN.INTEL RECRUITER Work Phone: [facility] Comment on above: Results Start: 07-02-2024 End: 08-22-2024 Telephone encounter Liam Wilkins MD Work Phone: [facility] Comment on above: Patient Question Start: 06-23-2024 End: 06-23-2024 ambulatory [facility] Facility:[facility] Start: 06-23-2024 End: 06-23-2024 Nursing evaluation of patient and report Mi Nurse Work Phone: [facility] Comment on above: Dizziness (Primary D x); PVC (premature ventricular contraction) Start: 06-23-2024 End: 06-23-2024 Telephone encounter Jojo Anderson APRN.INTEL RECRUITER Work Phone: [facility] Comment on above: Patient Question; Ap pointment Start: 06-17-2024 End: 06-17-2024 Telephone encounter Jojo Anderson APRN.INTEL RECRUITER Work Phone: [facility] Comment on above: Results Start: 06-16-2024 End: 06-16-2024 Patient encounter procedure Jojo Anderson APRN.INTEL RECRUITER Work Phone: [facility] Comment on above: Acquired hypothyroid ism (Primary Dx); Elevated hemoglobin A1c; Dizziness; PVC (premature ventricular contraction) Start: 06-16-2024 End: 06-16-2024 ambulatory LIAM Dipika WILKINS Facility:[facility] Start: 06-12-2024 End: 06-17-2024 Telephone encounter Liam Wilkins MD Work Phone: [facility] Comment on above: [facility] ER visit Start: 06-11-2024 End: 06-12-2024 Emergency department patient visit Liam Claudette Facility:[facility] Start: 04-23-2024 End: 04-23-2024 ambulatory LIAM WILKINS Facility:[facility] Start: 04-23-2024 End: 04-23-2024 Patient encounter procedure Liam Wilkins MD Work Phone: [facility] Comment on above: Mixed hyperlipidemia (Primary Dx); Acquired hypothyroidism; Elevated hemoglobin A1c; Gastroesophageal reflux disease without esophagitis; Bilateral carotid artery stenosis; Mild persistent asthma without complication; 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, right (HCC); Neutropenia, drug-induced (HCC); Vitamin D deficiency; Fatty liver; Skin lesions Start: 04-23-2024 End: 04-23-2024 Telephone encounter Namrata Clifford MA [facility] Comment on above: Patient Question Start: 04-19-2024 End: 04-19-2024 Telephone encounter Anuja Colon MD Work Phone: Cardiology Start: 04-18-2024 End: 04-18-2024 ambulatory LIAM WILKINS Facility:[facility] Start: 03-07-2024 End: 03-07-2024 Refill Liam Wilkins MD Work Phone: [facility] Comment on above: Refill Request Start: 02-22-2024 End: 02-22-2024 Patient encounter procedure Anuja Colon MD Work Phone: Cardiology Comment on above: Aortic valve stenosi s, etiology of cardiac valve disease unspecified (Primary Dx); Bilateral carotid artery stenosis Left shoulder pain, unspecified chronicity (Primary Dx); S/P shoulder surgery Start: 02-01-2024 Telephone encounter Dianna Avila MD Work Phone: General Surgery Start: 01-16-2024 End: 01-16-2024 Subsequent hospital visit by physician [facility] Work Phone: Radiology Comment on above: Abnormal mammogram o f left breast [R92.8] Start: 01-10-2024 Telephone encounter Liam Wilkins MD Work Phone: [facility] Comment on above: Results Start: 01-09-2024 Telephone encounter Regina Mcpherson MD Work Phone: Orthopaedics Comment on above: Appointment Start: 2024 Telephone encounter Liam Wilkins MD Work Phone: [facility] Comment on above: medication issue/que stion regarding pap Start: 12-31-2023 Refill Liam stevens MD Work Phone: [facility] Comment on above: Refill Request Start: 12-20-2023 Refill Liam stevens MD Work Phone: [facility] Comment on above: Refill Request Start: 12-18-2023 Telephone encounter Liam Wilkins MD Work Phone: [facility] Comment on above: Patient Question Start: 12-14-2023 End: 12-14-2023 Patient encounter procedure Regina Mcpherson MD Work Phone: Orthopedics Comment on above: Osteoarthritis of oulder, unspecified laterality, unspecified osteoarthritis type (Primary Dx) Start: 12-05-2023 Telephone encounter Obdulia park PA-C Work Phone: [facility] [place] Comment on above: Results Start: 11-30-2023 Documentation procedure Mammog karolina Coordinator [facility] Department Start: 11-30-2023 Letter encounter Mammography Coordinator [facility] Department Start: 11-28-2023 Telephone encounter Liam Wilkins MD Work Phone: [facility] Comment on above: Results Start: 11-13-2023 End: 11-13-2023 Patient encounter status Sangeetha South MD Work Phone: [facility] Start: 11-13-2023 End: 11-13-2023 Periodic preventive med est patient 65yrs& older Sangeetha South MD Work Phone: OB/Gynecology Comment on above: Encounter for gyneco logical examination (general) (routine) without abnormal findings (Primary Dx); Encounter for screening mammogram for breast cancer; Lichen sclerosus Start: 11-09-2023 End: 11-09-2023 Patient encounter procedure Dianna Eller MD Work Phone: General Surgery Comment on above: Colon cancer screeni ng; Altered bowel habits Start: 11-09-2023 End: 11-09-2023 Office outpatient visit 15 minutes Sangeetha South MD Work Phone: OB/Gynecology Comment on above: Lichen sclerosus (Pr imary Dx); History of right breast cancer; H/O bilateral mastectomy Start: 10-31-2023 Telephone encounter Liam Wilkins MD Work Phone: [facility] [place] Comment on above: Patient Question Start: 10-26-2023 End: 10-26-2023 Patient encounter procedure Regina Mcpherson MD Work Phone: Orthopedics Comment on above: Osteoarthritis of sh [place]ulder, unspecified laterality, unspecified osteoarthritis type (Primary Dx); S/P shoulder surgery Start: 10-23-2023 End: 10-23-2023 ambulatory Alex [facility] Physical Therapy Comment on above: Tear of left glenoid labrum, subsequent encounter (Primary Dx); Labral tear of long head of left biceps tendon, initial encounter Start: 10-17-2023 End: 10-17-2023 Patient encounter procedure Liam Wilkins MD Work Phone: [facility] Comment on above: Well adult exam ([facility] Dx); Mixed hyperlipidemia; Elevated hemoglobin A1c; Bilateral carotid artery stenosis; Acquired hypothyroidism; Mild persistent asthma without complication; Gastroesophageal reflux disease without esophagitis; Neutropenia, drug-induced (HCC); Vitamin D deficiency; RSD (reflex sympathetic dystrophy); Over weight; 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, right (HCC); Irritable bowel syndrome with both constipation and diarrhea; Fatty liver; Incomplete tear of left rotator cuff, unspecified whether traumatic; Encounter for immunization Start: 10-17-2023 End: 10-17-2023 Patient encounter status Liam Wilkins MD Work Phone: [facility] Work Phone: Start: 10-09-2023 End: 10-09-2023 ambulatory Alex [facility]enhall [facility] Comment on above: Tear of left glenoid labrum, subsequent encounter (Primary Dx); Labral tear of long head of left biceps tendon, initial encounter Start: 10-03-2023 End: 10-03-2023 ambulatory Alex [facility] Physical Therapy Comment on above: Tear of left glenoid labrum, subsequent encounter (Primary Dx); Labral tear of long head of left biceps tendon, initial encounter Start: 09-28-2023 End: 09-28-2023 Patient encounter procedure Megha Seymour PA-C Work Phone: Orthopedics Comment on above: S/P shoulder surgery (Primary Dx) Start: 09-26-2023 End: 09-26-2023 ambulatory La[facility] Physical Therapy Comment on above: Tear of left glenoid labrum, subsequent encounter (Primary Dx); Labral tear of long head of left biceps tendon, initial encounter Start: 09-18-2023 End: 09-18-2023 ambulatory Alex [facility] Physical Therapy Comment on above: Tear of left glenoid labrum, subsequent encounter (Primary Dx); Labral tear of long head of left biceps tendon, initial encounter Start: 09-11-2023 End: 09-11-2023 ambulatory Alex [facility] Physical Therapy Comment on above: Tear of left glenoid labrum, subsequent encounter (Primary Dx); Labral tear of long head of left biceps tendon, initial encounter Start: 09-04-2023 End: 09-04-2023 ambulatory Alex [facility] Physical Therapy Comment on above: Tear of left glenoid labrum, initial encounter (Primary Dx); Labral tear of long head of left biceps tendon, initial encounter Start: 09-03-2023 Refill Liam stevens MD Work Phone: [facility] Comment on above: Refill Request Start: 08-21-2023 End: 08-21-2023 ambulatory Alex [facility] Physical Therapy Comment on above: Tear of left glenoid labrum, initial encounter (Primary Dx); Labral tear of long head of left biceps tendon, initial encounter Start: 08-16-2023 Chart abstracting Liam yi MD Work Phone: [facility] Comment on above: Outside Diabetic Eye Exam Start: 08-14-2023 End: 08-14-2023 ambulatory Alex [facility] Physical Therapy Comment on above: Tear of left glenoid labrum, initial encounter (Primary Dx); Labral tear of long head of left biceps tendon, initial encounter Start: 08-10-2023 End: 08-10-2023 Patient encounter procedure Megha Seymour PA-C Work Phone: Orthopedics Comment on above: S/P shoulder surgery (Primary Dx); Stiffness of left shoulder joint Start: 08-07-2023 End: 08-07-2023 ambulatory Alex [facility] Physical Therapy Comment on above: Tear of left glenoid labrum, initial encounter (Primary Dx); Labral tear of long head of left biceps tendon, initial encounter Start: 07-31-2023 End: 07-31-2023 ambulatory Alex Mendenhall [facility] Comment on above: Tear of left glenoid labrum, initial encounter (Primary Dx); Labral tear of long head of left biceps tendon, initial encounter Start: 07-24-2023 End: 07-24-2023 ambulatory Alex Mendenhall [facility] Comment on above: Tear of left glenoid labrum, initial encounter (Primary Dx); Labral tear of long head of left biceps tendon, initial encounter Start: 06-13-2023 End: 06-13-2023 Admission to [facility] 1 Work Phone: [facility] Start: 06-13-2023 End: 06-13-2023 ambulatory [facility] 1 Work Phone: Pre Anesthesia Comment on above: Pre-operative examin ation (Primary Dx); Acquired hypothyroidism; Bilateral carotid artery stenosis; 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, right (HCC); Elevated hemoglobin A1c; History of skin cancer; Irritable bowel syndrome with both constipation and diarrhea; Mild persistent asthma without complication; Mixed hyperlipidemia; RSD (reflex sympathetic dystrophy); Class 1 obesity due to excess calories without serious comorbidity with body mass index (BMI) of 30.0 to 30.9 in adult Start: 06-13-2023 End: 06-13-2023 Preprocedural examination done [facility] 1 Work Phone: [facility] Work Phone: Start: 05-30-2023 Telephone encounter Regina Mcpherson MD Work Phone: Orthopedics Comment on above: Appointment (Post-op physical therapy appointment) Start: 05-14-2023 Orders Only Regina Mcpherson MD Work Phone: Orthopedics Comment on above: Tear of left glenoid labrum, initial encounter (Primary Dx); Incomplete tear of left rotator cuff, unspecified whether traumatic; Labral tear of long head of left biceps tendon, initial encounter Start: 04-26-2023 ambulatory Liam stevens MD Work Phone: [facility] Comment on above: recommendations for moving forward Start: 04-17-2023 End: 04-17-2023 Patient encounter procedure Liam Wilkins MD Work Phone: [facility] Comment on above: Mixed hyperlipidemia (Primary Dx); Acquired hypothyroidism; Elevated hemoglobin A1c; Gastroesophageal reflux disease without esophagitis; Mild persistent asthma without complication; Bilateral carotid artery stenosis; 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, right (HCC); Class 1 obesity due to excess calories without serious comorbidity with body mass index (BMI) of 33.0 to 33.9 in adult; Neutropenia, drug-induced (HCC); RSD (reflex sympathetic dystrophy); Vitamin D deficiency; Acute pain of left shoulder Start: 04-16-2023 Telephone encounter Liam Wilkins MD Work Phone: [facility] Comment on above: Results Start: 04-11-2023 End: 04-11-2023 Subsequent hospital visit by physician [facility] (1.5t) [facility] Comment on above: Left shoulder pain, unspecified chronicity [M25.512] Start: 04-06-2023 End: 04-06-2023 Subsequent hospital visit by physician Pat [facility] Work Phone: Radiology Comment on above: Left shoulder pain, unspecified chronicity [M25.512] Start: 04-06-2023 End: 04-06-2023 Patient encounter procedure Liam Wilkins MD Work Phone: [facility] Comment on above: Left shoulder pain, unspecified chronicity (Primary Dx); Mild intermittent asthma with exacerbation Start: 04-03-2023 Telephone encounter Liam Wilkins MD Work Phone: [facility] Comment on above: Appointment Start: 04-02-2023 End: 04-02-2023 ambulatory Alex Swain [facility] Comment on above: Acute pain of left s phyllis (Primary Dx) Start: 03-27-2023 Telephone encounter Liam Wilkins MD Work Phone: [facility] Comment on above: requesting medicatio n Start: 03-26-2023 End: 03-26-2023 ambulatory Alex Mendenhall PT [facility] Comment on above: Acute pain of left s phyllis (Primary Dx) Start: 03-13-2023 End: 03-13-2023 ambulatory Alex Mendenhall PT [facility] Comment on above: Acute pain of left s phyllis (Primary Dx) Start: 03-01-2023 Refill Jojo rabago LARGE ENGINE ASSEMBLER.INTEL RECRUITER Work Phone: [facility] Comment on above: Refill Request Start: 02-20-2023 Refill Jojo rabago LARGE ENGINE ASSEMBLER.INTEL RECRUITER Work Phone: [facility] Comment on above: Refill Request Start: 02-20-2023 End: 02-20-2023 ambulatory Sherry Bruce PT [facility] Comment on above: Acute pain of left s phyllis (Primary Dx) Start: 02-10-2023 End: 02-10-2023 Patient encounter procedure Liam Wilkins MD Work Phone: [facility] Comment on above: Acute pain of left s phyllis (Primary Dx) Start: 01-03-2023 End: 01-03-2023 Patient encounter procedure Jeny Don PA-C Work Phone: [facility] Comment on above: Infected wound (Prim kaylee Dx) Start: 11-09-2022 End: 11-09-2022 Subsequent hospital visit by physician [facility] Work Phone: Nuclear Medicine Comment on above: Rib pain on right si de [R07.81] Start: 10-25-2022 End: 10-25-2022 Patient encounter procedure Liam Wilkins MD Work Phone: [facility] Comment on above: Rib pain on right si de (Primary Dx) Start: 10-10-2022 Telephone encounter Obdulia park PA-C Work Phone: [facility] Comment on above: Results Start: 10-06-2022 End: 10-06-2022 Subsequent hospital visit by physician T[facility] (I-Stat) Work Phone: Cat Scan Comment on above: Flank pain [R10.9] Start: 09-26-2022 Telephone encounter Obdulia MCCULLOUGH-C Work Phone: [facility] Comment on above: Results Start: 09-25-2022 Telephone encounter Obdulia park PA-C Work Phone: [facility] Comment on above: Results Start: 09-25-2022 End: 09-25-2022 Subsequent hospital visit by physician T[facility] (I-Stat) Work Phone: Cat Scan Comment on above: Mass of soft tissue of neck [M79.89] Start: 09-22-2022 End: 09-22-2022 Subsequent hospital visit by physician Pat [facility] Work Phone: Radiology Comment on above: Flank pain [R10.9] Start: 09-22-2022 End: 09-22-2022 Patient encounter procedure Obdulia Rowley PA-C Work Phone: [facility] Comment on above: Flank pain (Primary Dx); Rib pain on right side Start: 09-16-2022 Telephone encounter Jeny DobbsC Work Phone: [facility] Comment on above: Results Start: 09-15-2022 End: 09-15-2022 Office outpatient visit 25 minutes Liam Gonzales APRN.CNP Work Phone: [facility] Comment on above: Urinary frequency (P rimary Dx) Start: 09-09-2022 End: 09-09-2022 Patient encounter procedure Liam Wilkins MD Work Phone: [facility] Comment on above: Well adult exam ([facility] Dx); Acquired hypothyroidism; Mixed hyperlipidemia; Mild persistent asthma without complication; Gastroesophageal reflux disease without esophagitis; Elevated hemoglobin A1c; Bilateral carotid artery stenosis; RSD (reflex sympathetic dystrophy); Neutropenia, drug-induced (HCC); 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, right (HCC); Class 1 obesity due to excess calories without serious comorbidity with body mass index (BMI) of 33.0 to 33.9 in adult; Vitamin D deficiency; Mass of soft tissue of neck; Advance directive discussed with patient Start: 09-09-2022 End: 09-09-2022 Patient encounter status Liam Wilkins MD Work Phone: [facility] Start: 09-04-2022 Refill Liam stevens MD Work Phone: [facility] Comment on above: Refill Request Start: 08-30-2022 Telephone encounter Obdulia park PA-C Work Phone: [facility] Comment on above: Results Start: 08-29-2022 Telephone encounter Liam Wilkins MD Work Phone: [facility] Comment on above: Orders Start: 08-16-2022 End: 08-16-2022 Patient encounter procedure Leslie Lesliegem Brewster PA-C Work Phone: [facility] [place] Comment on above: Degenerative disc di sease, cervical (Primary Dx); Osseous and subluxation stenosis of intervertebral foramina of cervical region; Muscle spasms of neck; Neural foraminal stenosis of cervical spine; Neck pain Start: 07-24-2022 Telephone encounter Liam Wilkins MD Work Phone: [facility] Comment on above: Referral Request Start: 06-23-2022 Telephone encounter Ramiro Barnett MD Work Phone: [facility] [place] Comment on above: Appointment Start: 06-22-2022 Telephone encounter Liam Wilkins MD Work Phone: Pain Management Comment on above: Appointment Start: 06-15-2022 End: 06-15-2022 ambulatory Alex Mendenhall PT [facility] Comment on above: Neck pain (Primary D x); Dizziness Start: 06-05-2022 End: 06-05-2022 ambulatory Alex Mendenhall PT [facility] Comment on above: Neck pain (Primary D x); Dizziness Start: 05-30-2022 End: 05-30-2022 ambulatory Alex Mendenhall [facility] Comment on above: Neck pain (Primary D x); Dizziness Start: 05-24-2022 End: 05-24-2022 ambulatory Margarita Traylor APRN.INTEL RECRUITER Work Phone: [facility] [place] Comment on above: Cervical spondylosis without myelopathy (Primary Dx); Myalgia Start: 05-24-2022 End: 05-24-2022 Telemedicine consultation with patient Margarita Traylor LARGE ENGINE ASSEMBLER.INTEL RECRUITER Work Phone: [facility] Start: 05-23-2022 End: 05-23-2022 ambulatory Ramiro Barnett MD Work Phone: [facility] [place] Comment on above: Procedure Start: 05-23-2022 End: 05-23-2022 Patient encounter procedure Ramiro Barnett MD Work Phone: [facility] Start: 05-16-2022 End: 05-16-2022 ambulatory Alex [facility]enh[facility] Comment on above: Neck pain (Primary D x); Dizziness Start: 05-02-2022 End: 05-02-2022 ambulatory Alex [facility]enh[facility] Comment on above: Neck pain (Primary D x); Dizziness Start: 05-01-2022 Refill Liam stevens MD Work Phone: [facility] Comment on above: Refill Request Start: 04-25-2022 End: 04-25-2022 ambulatory Alex Abdirashid [facility] Comment on above: Dizziness (Primary D x); Neck pain Start: 04-24-2022 Telephone encounter Liam Wilkins MD Work Phone: [facility] Comment on above: Physical Therapy Start: 04-20-2022 Telephone encounter Ramiro Barnett MD Work Phone: [facility] Comment on above: Patient Update (Inje ction questions ) Start: 04-20-2022 End: 04-20-2022 Patient encounter procedure Ramiro Barnett MD Work Phone: [facility] Comment on above: Cervical spondylosis without myelopathy (Primary Dx); Cervical stenosis of spinal canal Start: 03-21-2022 Telephone encounter Liam Wilkins MD Work Phone: [facility] Comment on above: Results Start: 03-21-2022 End: 03-21-2022 Patient encounter procedure Jeny Don PA-C Work Phone: [facility] Comment on above: Suspected COVID-19 v irus infection (Primary Dx) Start: 03-21-2022 End: 03-21-2022 Subsequent hospital visit by physician Mri [facility] (I-Stat/1.5t) Work Phone: Radiology Comment on above: Cervicalgia [M54.2] Start: 03-16-2022 Refill Liam stevens MD Work Phone: [facility] Comment on above: Refill Request Start: 03-03-2022 End: 03-03-2022 Patient encounter procedure Liam Wilkins MD Work Phone: [facility] Comment on above: Cervicalgia (Primary Dx) Start: 02-22-2022 End: 02-22-2022 Patient encounter procedure Liam Gonzales APRN.CNP Work Phone: [facility] Comment on above: Rash (Primary Dx) Start: 02-10-2022 Refill Liam stevens MD Work Phone: [facility] Comment on above: Refill Request Start: 02-07-2022 End: 02-07-2022 ambulatory Alex Mendenhall PT [facility] Comment on above: Dizziness (Primary D x) Start: 01-16-2022 End: 01-16-2022 ambulatory Alex Mendenhall PT [facility] Comment on above: Dizziness (Primary D x) Start: 01-09-2022 End: 01-09-2022 ambulatory Alex Mendenhall PT [facility] Comment on above: Dizziness (Primary D x) Start: 01-04-2022 End: 01-04-2022 Patient encounter procedure Liam Wilkins MD Work Phone: [facility] Comment on above: Mixed hyperlipidemia (Primary Dx); Acquired hypothyroidism; Elevated hemoglobin A1c; Gastroesophageal reflux disease without esophagitis; Mild persistent asthma without complication; Bilateral carotid artery stenosis; 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, right (HCC); Class 1 obesity due to excess calories without serious comorbidity with body mass index (BMI) of 33.0 to 33.9 in adult; Neutropenia, drug-induced (HCC); RSD (reflex sympathetic dystrophy); Vitamin D deficiency; Living will in place; Advance directive discussed with patient; Screening for osteoporosis; Primary ovarian failure; Medication management Start: 01-02-2022 End: 01-02-2022 ambulatory Alex [facility] Comment on above: Dizziness (Primary D x) Start: 12-16-2021 End: 12-16-2021 ambulatory Alex [facility] Comment on above: Dizziness (Primary D x) Start: 12-05-2021 End: 12-05-2021 ambulatory Alex Abdirashid [facility] Comment on above: Dizziness (Primary D x) Start: 11-30-2021 End: 11-30-2021 ambulatory Alex [facility] Comment on above: Dizziness (Primary D x) Start: 11-14-2021 End: 11-14-2021 ambulatory Alex Abdirashid PT Work Phone: [facility] Comment on above: Dizziness (Primary D x) Start: 11-10-2021 End: 11-10-2021 ambulatory Alex Abdirashid PT Work Phone: [facility] Comment on above: Dizziness (Primary D x) Start: 11-09-2021 End: 11-09-2021 Subsequent hospital visit by physician [facility] Comment on above: Mass of upper outer quadrant of left breast [N63.21] Start: 11-08-2021 Telephone encounter Liam Wilkins MD Work Phone: [facility] Comment on above: Results Start: 11-08-2021 End: 11-08-2021 Subsequent hospital visit by physician [facility] Work Phone: Radiology Comment on above: Neck pain [M54.2] Start: 11-08-2021 End: 11-08-2021 Patient encounter procedure Liam Wilkins MD Work Phone: [facility] Comment on above: Neck pain (Primary D x) Start: 11-06-2021 ambulatory Liam stevens MD Work Phone: [facility] Comment on above: related issue? advic e please Start: 11-02-2021 End: 11-02-2021 ambulatory Bala Wolf DO Work Phone: Hematology/Oncology Comment on above: 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, right (HCC) (Primary Dx); Mass of upper outer quadrant of left breast; Breast cancer screening, high risk patient Start: 11-02-2021 End: 11-02-2021 Patient encounter procedure Bala Wolf DO Work Phone: [facility] Start: 10-20-2021 Refill Liam stevens MD Work Phone: [facility] Comment on above: Refill Request Start: 09-27-2021 E-mail encounter fro m caregiver [facility] Provider [facility] ARLIN [facility]TE[facility] Start: 09-27-2021 Patient encounter procedure [facility] Provider Neurology Comment on above: appointment Start: 09-23-2021 Refill Liam stevens MD Work Phone: [facility] Comment on above: Refill Request Start: 09-13-2021 Telephone encounter Liam Wilkins MD Work Phone: [facility] Comment on above: Patient Update Start: 09-08-2021 Telephone encounter Liam Wilkins MD Work Phone: [facility] Comment on above: Appointment Start: 07-06-2021 Patient encounter status Bj Wilkins MD Work Phone: [facility] Work Phone: Start: 12-22-2020 End: 12-22-2020 Subsequent hospital visit by physician [facility] Work Phone: Radiology Comment on above: Cough [R05] Start: 12-20-2016 End: 01-02-2025 Patient encounter status [facility] Procedures Date Procedure Procedure Detail Performing Clinician Start: 01-31-2025 Mra head w/o & w/contrast material Liam Wilkins MD Work Phone: Start: 01-21-2025 Radex foot complete minimum 3 views Obdulia MCCULLOUGH-C Work Phone: Start: 01-01-2025 Screening digital breast tomosynthesis bi Raman Janell LARGE ENGINE ASSEMBLER.INTEL RECRUITER Work Phone: Start: 01-01-2025 Us pelvic nonobstetric real-time image complete Raman Janell BAILEY.INTEL RECRUITER Work Phone: Start: 12-31-2024 Ct orbit sella/post fossa/ear w/contrast matrl Liam Wilkins MD Work Phone: Start: 11-26-2024 Radiologic exam chest 2 views Obdulia MCCULLOUGH-C Work Phone: Start: 10-29-2024 PFIZER-BIONTNuiku COVID-19 VACCINE AGE 12+ YR (COMIRNATY) Liam Wilkins MD Work Phone: Start: 10-29-2024 Adult depression screening assessment Liam Wilkins MD Work Phone: Start: 10-27-2024 Lipid 1996 panel - Serum or Plasma Liam Wilkins MD Work Phone: Start: 08-15-2024 Arthrocentesis aspir&/inj major jt/bursa w/o us Regina Mcpherson MD Work Phone: Start: 06-16-2024 Ecg routine ecg w/least 12 lds i&r only [facility] Provider Start: 04-18-2024 Lipid 1996 panel - Serum or Plasma Anuja Colon MD Work Phone: Start: 02-27-2024 Arthrocentesis aspir&/inj major jt/bursa w/o us Regina Mcpherson MD Work Phone: Start: 01-16-2024 Diagnostic mammography computer-aided detcj uni Sangeetha South MD Work Phone: Start: 10-17-2023 PFIZER-BIONTNuiku COVID-19 VACCINE ( SEASON) AGE 12+ YR Liam Wilkins MD Work Phone: Start: 10-04-2023 Lipid 1995 panel - Serum or Plasma Alex Mendenhall PT Start: 04-06-2023 Radex shoulder complete minimum 2 views iLam Wilkins MD Work Phone: Start: 03-26-2023 Lipid 1995 panel - Serum or Plasma Alex Mendenhall PT Start: 01-03-2023 Cul bact xcpt urine blood/stool aerobic isol Jeny R Florencia MOCTEZUMA Work Phone: Start: 11-09-2022 Bone &/joint imaging whole body Liam Wilkins MD Work Phone: Start: 10-25-2022 Urnls dip stick/tablet rgnt auto w/o microscopy Liam Wilkins MD Work Phone: Start: 10-06-2022 Ct abdomen & pelvis w/o contrast material Obdulia Rowley PA-C Work Phone: Start: 09-25-2022 Ct soft tissue neck w/contrast material Liam Wilkins MD Work Phone: Start: 09-22-2022 Radiologic exam abdomen 1 view Obdulia Rowley PA-C Work Phone: Start: 09-15-2022 Urnls dip stick/tablet rgnt auto w/o microscopy Sherry Douglas LARGE ENGINE ASSEMBLER.INTEL RECRUITER Work Phone: Start: 08-29-2022 Lipid 1995 panel - Serum or Plasma Alex Mendenhall PT Start: 03-21-2022 Mri spinal canal cervical w/o contrast matrl Liam Wilkins MD Work Phone: Start: 01-04-2022 Adult depression screening assessment Liam Wilkins MD Work Phone: Start: 11-09-2021 Us breast uni real time with image limited Bala Wolf DO Work Phone: Start: 11-09-2021 Diagnostic mammography computer-aided detcj bi Bala Wolf DO Work Phone: Start: 11-08-2021 Radex spine cervical 4 or 5 views Liam Wilkins MD Work Phone: Start: 12-22-2020 Radiologic exam chest 2 views Liam Gonzales APRN.CNP Work Phone: Start: 12-15-2020 Adult depression screening assessment Liam Wilkins MD Work Phone: Start: 02-10-2019 Colonoscopy Liam Wilkins MD Work Phone: Start: 12-20-2016 H/O: surgery History of detached retina repair Liam Wilkins MD Work Phone: History of bilateral mastectomy H/O bilateral mastectomy Sangeetha South MD Work Phone: Plan of Treatment Date Care Activity Detail Author Start: 06-10-2030 Urine microalbumin profile [facility] Start: 10-27-2029 Lipid panel Lipid Screening [facility] Start: 04-18-2029 Lipid panel Lipid Screening [facility] Start: 10-03-2028 Lipid panel Lipid Screening [facility] Start: 03-26-2028 Lipid 1996 panel - S nikos or Plasma Lipid Screening [facility] Start: 03-26-2028 Lipid panel Lipid Screening [facility] Start: 10-28-2027 Diabetes Screening Diabetes Screenin [facility] Start: 08-30-2027 Lipid 1996 panel - S nikos or Plasma Lipid Screening [facility] Start: 08-30-2027 LIPID SCREEN LIPID SCREEN [facility] Start: 06-16-2027 Diabetes Screening Diabetes Screenin g [facility] Start: 04-18-2027 Diabetes Screening Diabetes Screenin g [facility] Start: 01-09-2027 Diabetes Screening Diabetes Screenin g [facility] Start: 01-02-2027 Screening for malign ant neoplasm of colon [facility] Start: 12-30-2026 LIPID SCREEN LIPID SCREEN [facility] Start: 10-03-2026 Diabetes Screening Diabetes Screenin g [facility] Start: 07-04-2026 LIPID SCREEN LIPID SCREEN [facility] Start: 03-26-2026 Diabetes Screening Diabetes Screenin g [facility] Start: 01-21-2026 Annual PCP Team Cigarette Packing Machine Operator faith Disease Visit Annual PCP Team Chronic Disease Visit [facility] Start: 12-31-2025 Annual PCP Team Cigarette Packing Machine Operator faith Disease Visit Annual PCP Team Chronic Disease Visit [facility] Start: 11-26-2025 Annual PCP Team Cigarette Packing Machine Operator faith Disease Visit Annual PCP Team Chronic Disease Visit [facility] Start: 11-17-2025 End: 11-17-2025 Patient encounter procedure 11/17/2025 9:00 AM EDT Office Visit Cardiology [address] [place] [id number] Anuja Colon MD [address] [place] [address] [phone] 8 mo follow up Cardiology Comment on above: 8 mo follow up Start: 10-29-2025 Annual PCP Team Cigarette Packing Machine Operator faith Disease Visit Annual PCP Team Chronic Disease Visit [facility] Start: 10-29-2025 Anxiety Screening Anxiety Screening [facility] Start: 10-29-2025 Depression Screening Depression Scre ening [facility] Start: 08-29-2025 DIABETES SCREEN DIABETES SCREEN [facility] Start: 08-29-2025 Diabetes Screening Diabetes Screenin g [facility] Start: 06-23-2025 End: 06-23-2025 ambulatory 06/23/2025 10:30 AM EST [facility] [employer] [facility] [id number] [place] [id number] Rosario Leal, [facility] [address] [place] [address] Family history of malignant neoplasm of breast [Z80.3]; History of breast cancer [Z85.3] [facility] Comment on above: Family history of ma lignant neoplasm of breast [Z80.3]; History of breast cancer [Z85.3] Start: 06-16-2025 Annual PCP Team Cigarette Packing Machine Operator faith Disease Visit Annual PCP Team Chronic Disease Visit [facility] Start: 05-05-2025 End: 05-05-2025 Patient encounter procedure 05/05/2025 8:40 AM EST Office Visit [facility] [address] [facility] [place], [place] [address] Liam Wilkins MD [address] [place], [place] [address] [address] 6 month follow up Family [facility] Comment on above: 6 month follow up Start: 05-01-2025 Covid-19 Vaccine (10 - Pfizer risk season) Covid-19 Vaccine (10 - Pfizer risk ) [facility] Start: 04-23-2025 Annual PCP Team Cigarette Packing Machine Operator faith Disease Visit Annual PCP Team Chronic Disease Visit [facility] Start: 04-23-2025 Anxiety Screening Anxiety Screening [facility] Comment on above: Postponed from 01/06 (Declined at this time) Start: 04-17-2025 End: 07-17-2025 Hemoglobin A1c in Blood HEMOGLOBIN A1C Lab Routine Elevated hemoglobin A1c Expected: 04/17/2025, Expires: 07/17/2025 [facility] Work Phone: Comment on above: Expected: 04/17/2025 , Expires: 07/17/2025 Start: 04-17-2025 End: 07-17-2025 LIPID PANEL, NONFASTING LIPID PANEL, NONFASTING Lab Routine Mixed hyperlipidemia Expected: 04/17/2025, Expires: 07/17/2025 [facility] Comment on above: Expected: 04/17/2025 , Expires: 07/17/2025 Start: 04-17-2025 End: 07-17-2025 Thyrotropin [Units/volume] in Serum or Plasma THYROID STIMULATING HORMONE Lab Routine Acquired hypothyroidism Expected: 04/17/2025, Expires: 07/17/2025 [facility] Comment on above: Expected: 04/17/2025 , Expires: 07/17/2025 Start: 04-03-2025 End: 07-03-2025 Hepatic function 2000 panel - Serum or Plasma HEPATIC FUNCTION PNL Lab Routine Hyperlipidemia, unspecified hyperlipidemia type Expected: 04/03/2025, Expires: 07/03/2025 [facility] Comment on above: Expected: 04/03/2025 , Expires: 07/03/2025 Start: 04-03-2025 End: 07-03-2025 LIPID PANEL, NONFASTING LIPID PANEL, NONFASTING Lab Routine Hyperlipidemia, unspecified hyperlipidemia type Expected: 04/03/2025, Expires: 07/03/2025 [facility] Comment on above: Expected: 04/03/2025 , Expires: 07/03/2025 Start: 03-04-2025 End: 03-04-2025 Patient encounter procedure 03/04/2025 11:00 AM EDT Office Visit Cardiology [address] [address] Anuja Colon MD [address] [place], [place] [id number] DX: Ventricular Tachycardia, Valve Issue Cardiology Comment on above: DX: Ventricular Tach ycardia, Valve Issue Start: 02-23-2025 Influenza vaccination Influenza Vacc ine (#1) [facility] Start: 01-31-2025 End: 01-31-2025 Patient encounter procedure 01/31/2025 10:30 AM EDT Appointment Radiology [address] [place] [address] Family history of brain aneurysm [Z82.49] Radiology Comment on above: Family history of br ain aneurysm [Z82.49] Start: 01-01-2025 End: 01-01-2025 Patient encounter procedure 01/01/2025 9:50 AM EDT Appointment Mammogram [address] [place] [address] Encounter for gynecological examination (general) (routine) without abnormal findings [Z01.419]; Encounter for screening mammogram for breast cancer [Z12.31] Mammogram Comment on above: Encounter for gyneco logical examination (general) (routine) without abnormal findings [Z01.419]; Encounter for screening mammogram for breast cancer [Z12.31] Start: 01-01-2025 End: 01-01-2025 ambulatory 01/01/2025 9:00 AM EDT Procedure OB/Gynecology [address] [address] Remote, [employer] [facility] [address] [place] [address] Constipation, unspecified constipation type [K59.00] OB/Gynecology Comment on above: Constipation, unspec ified constipation type [K59.00] Start: 01-01-2025 End: 01-01-2025 Patient encounter procedure 01/01/2025 7:45 AM EDT Appointment Radiology [address] [place] [id number] Encounter for screening for osteoporosis [Z13.820] Radiology Comment on above: Encounter for screen ing for osteoporosis [Z13.820] Start: 12-30-2024 DIABETES SCREEN DIABETES SCREEN [facility] Start: 11-26-2024 End: 11-26-2024 Patient encounter procedure 11/26/2024 8:00 AM EDT Office Visit [facility] [place] [address] [place] [address] Obdulia Rowley PA-C [address] [place] [address] Follow Up EC. URI. ATB will be completed 11/25/2024 and patient not feeling any better. [facility] Comment on above: Follow Up EC. URI. A TB will be completed 11/25/2024 and patient not feeling any better. Start: 11-21-2024 End: 11-21-2024 Patient encounter procedure 11/21/2024 10:15 AM EDT Office Visit Orthopedics [address] [facility] [address] [place] [address] Regina Mcpherson MD [address] [facility] [address] [place] [address] L-shoulder CSI Orthopedics Comment on above: L-shoulder CSI Start: 11-12-2024 End: 11-12-2024 Patient encounter procedure 11/12/2024 10:15 AM EDT Office Visit OB/Gynecology [address] [place] [address] Raman Maciel APRN.INTEL RECRUITER [address] [place] [address] Annual OB/Gynecology Comment on above: Annual Start: 10-29-2024 End: 10-29-2024 Patient encounter procedure [facility] [place] Comment on above: Medicare wellness Start: 10-16-2024 Annual PCP Team Cigarette Packing Machine Operator faith Disease Visit Annual PCP Team Chronic Disease Visit [facility] Start: 10-10-2024 End: 01-09-2025 25-hydroxyvitamin D3 [Mass/volume] in Serum or Plasma VITAMIN D 25 HYDROXY Lab Routine Vitamin D deficiency Expected: 10/10/2024, Expires: 01/09/2025 [facility] Work Phone: Comment on above: Expected: 10/10/2024 , Expires: 01/09/2025 Start: 10-10-2024 End: 01-09-2025 CBC W Auto Differential panel - Blood COMPLETE BLOOD COUNT AND DIFFERENTIAL Lab Routine Neutropenia, drug-induced (HCC) Fatty liver Expected: 10/10/2024, Expires: 01/09/2025 [facility] Comment on above: Expected: 10/10/2024 , Expires: 01/09/2025 Start: 10-10-2024 End: 01-09-2025 Comprehensive metabolic 2000 panel - Serum or Plasma COMPREHENSIVE METABOLIC PANEL Lab Routine Mixed hyperlipidemia Fatty liver Expected: 10/10/2024, Expires: 01/09/2025 [facility] Comment on above: Expected: 10/10/2024 , Expires: 01/09/2025 Start: 10-10-2024 End: 01-09-2025 Hemoglobin A1c in Blood HEMOGLOBIN A1C Lab Routine Elevated hemoglobin A1c Expected: 10/10/2024, Expires: 01/09/2025 [facility] Comment on above: Expected: 10/10/2024 , Expires: 01/09/2025 Start: 10-10-2024 End: 01-09-2025 LIPID PANEL, NONFASTING LIPID PANEL, NONFASTING Lab Routine Mixed hyperlipidemia Bilateral carotid artery stenosis Fatty liver Expected: 10/10/2024, Expires: 01/09/2025 [facility] Comment on above: Expected: 10/10/2024 , Expires: 01/09/2025 Start: 10-10-2024 End: 01-09-2025 Thyrotropin [Units/volume] in Serum or Plasma THYROID STIMULATING HORMONE Lab Routine Acquired hypothyroidism Expected: 10/10/2024, Expires: 01/09/2025 [facility] Comment on above: Expected: 10/10/2024 , Expires: 01/09/2025 Start: 10-10-2024 End: 01-09-2025 Urinalysis complete panel - Urine URINALYSIS, WITH MICROSCOPIC Lab Routine Mixed hyperlipidemia Expected: 10/10/2024, Expires: 01/09/2025 [facility] Comment on above: Expected: 10/10/2024 , Expires: 01/09/2025 Start: 08-22-2024 End: 08-22-2024 Patient encounter procedure 08/22/2024 2:00 PM EST Office Visit Cardiology [address] [address] Anuja Colon MD [address] [place] [id number] 6 month follow up Cardiology Comment on above: 6 month follow up Start: 08-21-2024 End: 08-21-2024 ambulatory 08/21/2024 11:00 AM EST OT/PT/Speech Visit [facility] Therapy [address] [place] [address] O'Sherry Box, PT R42 (ICD-10-CM) - Vertigo [facility] Comment on above: R42 (ICD-10-CM) - Ve rtigo Start: 08-15-2024 End: 08-15-2024 Patient encounter procedure Orthopedics Comment on above: left shoulder surg f ollow up L-shoulder CSI Start: 08-12-2024 End: 08-12-2024 ambulatory 08/12/2024 9:45 AM EST OT/PT/Speech Visit [facility] Therapy [address] [place] [address] O'IsauroSherry pierre, PT Vertigo [R42] [facility] Comment on above: Vertigo [R42] Start: 07-10-2024 End: 07-10-2024 Patient encounter procedure 07/10/2024 10:15 AM EST Office Visit [facility] [address] [place] [address] Regina Mcpherson MD [address] [place] [address] [place] [address] Left shoulder pain---dmk [facility] Comment on above: Left shoulder pain-- -dmk Start: 07-04-2024 DIABETES SCREEN DIABETES SCREEN [facility] Start: 06-25-2024 Advance Directive Discussion Advance Directive Discussion [facility] Start: 06-24-2024 Behavioral Health Screening Behavioral Health Screening [facility] Comment on above: Postponed from 06/25 (Declined at this time) Start: 06-16-2024 End: 09-15-2024 Hemoglobin A1c in Blood [facility] Comment on above: Expected: 06/16/2024 , Expires: 09/15/2024 Start: 06-16-2024 End: 09-15-2024 Thyrotropin [Units/volume] in Serum or Plasma [facility] Work Phone: Comment on above: Expected: 06/16/2024 , Expires: 09/15/2024 Start: 06-16-2024 End: 09-15-2024 Thyroxine (T4) free [Mass/volume] in Serum or Plasma [facility] Comment on above: Expected: 06/16/2024 , Expires: 09/15/2024 Start: 06-16-2024 End: 09-15-2024 Triiodothyronine (T3) [Mass/volume] in Serum or Plasma [facility] Comment on above: Expected: 06/16/2024 , Expires: 09/15/2024 Start: 06-15-2024 Annual PCP Team Cigarette Packing Machine Operator faith Disease Visit Annual PCP Team Chronic Disease Visit [facility] Start: 06-14-2024 Covid-19 Vaccine ( season) Covid-19 Vaccine () [facility] Start: 06-06-2024 Covid-19 Vaccine ( season) Covid-19 Vaccine () [facility] Start: 04-23-2024 End: 04-23-2024 Patient encounter procedure 04/23/2024 3:00 PM EDT Office Visit [facility] [place] [address] [place] [address] Liam Wilkins MD [address] [place] [address] 6 month follow up [facility] [place] Comment on above: 6 month follow up Start: 04-23-2024 Depression Screening Depression Scre ening [facility] Comment on above: Postponed from 01/06 (Declined at this time) Start: 04-17-2024 Annual PCP Team Cigarette Packing Machine Operator faith Disease Visit Annual PCP Team Chronic Disease Visit [facility] Start: 04-06-2024 Annual PCP Team Cigarette Packing Machine Operator faith Disease Visit Annual PCP Team Chronic Disease Visit [facility] Start: 04-04-2024 End: 07-04-2024 Hemoglobin A1c in Blood HEMOGLOBIN A1C Lab Routine Elevated hemoglobin A1c Expected: 04/04/2024, Expires: 07/04/2024 [facility] Comment on above: Expected: 04/04/2024 , Expires: 07/04/2024 Start: 04-04-2024 End: 07-04-2024 LIPID PANEL, NONFASTING LIPID PANEL, NONFASTING Lab Routine Mixed hyperlipidemia Bilateral carotid artery stenosis Expected: 04/04/2024, Expires: 07/04/2024 [facility] Comment on above: Expected: 04/04/2024 , Expires: 07/04/2024 Start: 04-04-2024 End: 07-04-2024 Thyrotropin [Units/volume] in Serum or Plasma THYROID STIMULATING HORMONE Lab Routine Acquired hypothyroidism Expected: 04/04/2024, Expires: 07/04/2024 [facility] Comment on above: Expected: 04/04/2024 , Expires: 07/04/2024 Start: 03-24-2024 End: 06-23-2024 Hepatic function 2000 panel - Serum or Plasma HEPATIC FUNCTION PNL Lab Routine Bilateral carotid artery stenosis Expected: 03/24/2024, Expires: 06/23/2024 [facility] Work Phone: Comment on above: Expected: 03/24/2024 , Expires: 06/23/2024 Start: 02-24-2024 Covid-19 Vaccine ( season) Covid-19 Vaccine ( season) [facility] Start: 02-24-2024 Covid-19 Vaccine ( season) Covid-19 Vaccine () [facility] Start: 02-24-2024 Influenza vaccination Influenza Vacc ine (#1) [facility] Start: 02-22-2024 End: 02-22-2024 Patient encounter procedure Cardiology Comment on above: [email or web address] left shoulder inj Start: 02-11-2024 ANNUAL PCP TEAM APPLICATION ASSISTANT FAITH DISEASE VISIT ANNUAL PCP TEAM CHRONIC DISEASE VISIT [facility] Start: 02-11-2024 Colonoscopy COLONOSCOPY [facility] Start: 02-11-2024 COLORECTAL CANCER SCREENING COLORECTAL CANCER SCREENING [facility] Start: 02-11-2024 Screening for malign ant neoplasm of colon [facility] Start: 02-08-2024 End: 02-08-2024 Patient encounter procedure 02/08/2024 3:15 PM EDT Office Visit Orthopedics [address] [facility] [address] [place] [phone] Regina Mcpherson MD [address] [facility] [address] [place], [place] [id number] left shoulder inj Orthopedics Comment on above: left shoulder inj Start: 01-16-2024 End: 01-16-2024 Patient encounter procedure Mammogram Comment on above: Comp- LT CALCS CB callback Start: 01-09-2024 End: 04-09-2024 Basic metabolic 2000 panel - Serum or Plasma BASIC METABOLIC PANEL Lab Routine Elevated hemoglobin A1c Mixed hyperlipidemia Expected: 01/09/2024, Expires: 04/09/2024 [facility] Work Phone: Comment on above: Expected: 01/09/2024 , Expires: 04/09/2024 Start: 01-03-2024 End: 01-03-2024 Patient encounter procedure LD SURGERY Comment on above: Altered bowel habits [R19.4] Start: 01-02-2024 End: 01-02-2024 Patient encounter procedure 01/02/2024 9:00 AM EDT Office Visit OB/Gynecology [address] [place], [place] [id number] Sangeetha South MD [address] [place] [address] mother had a history of uterine cancer OB/Gynecology Comment on above: mother had a history of uterine cancer Start: 12-25-2023 End: 12-25-2023 Patient encounter procedure 12/25/2023 2:00 PM EDT Appointment Mammogram [address] [place] [address] Comp- LT CALCS CB Mammogram Comment on above: Comp- LT CALCS CB Start: 12-14-2023 End: 12-14-2023 Patient encounter procedure Orthopedics Comment on above: 6 week follow up for left shoulder L-BTR 07/02/23, 6wk f/ u Start: 12-13-2023 End: 12-13-2023 Patient encounter procedure 12/13/2023 1:00 PM EDT Appointment LD SURGERY [address] [place] [address] Dianna Eller MD [address] [place] [id number] LD SURGERY Start: 12-12-2023 Covid-19 Vaccine ( season) Covid-19 Vaccine ( season) [facility] Start: 11-30-2023 End: 11-30-2023 Patient encounter procedure 11/30/2023 9:10 AM EDT Appointment Mammogram [address] [place] [address] Mammogram Start: 11-28-2023 End: 11-28-2023 Patient encounter procedure 11/28/2023 10:00 AM EDT Office Visit Vasculary Surgery [address] [place], [place] [address] Bilateral carotid artery stenosis [I65.23] Vasculary Surgery Comment on above: Bilateral carotid ar silvia stenosis [I65.23] Start: 11-23-2023 End: 11-23-2023 Patient encounter procedure 11/23/2023 8:15 AM EDT Office Visit Orthopedics [address] [phone] Regina Mcpherson MD [address] [place] [address] left bicep followup Orthopedics Comment on above: left bicep followup Start: 11-16-2023 End: 02-15-2024 25-hydroxyvitamin D3 [Mass/volume] in Serum or Plasma VITAMIN D 25 HYDROXY Lab Routine Vitamin D deficiency Expected: 11/16/2023, Expires: 02/15/2024 [facility] Work Phone: Comment on above: Expected: 11/16/2023 , Expires: 02/15/2024 Start: 11-13-2023 End: 11-13-2023 Patient encounter procedure 11/13/2023 8:40 AM EDT Office Visit OB/Gynecology [address] [place] [address] Sangeetha South MD [address] [place] [address] Annual OB/Gynecology Comment on above: Annual Start: 11-08-2023 End: 11-08-2023 Patient encounter procedure 11/08/2023 12:30 PM EDT Office Visit Vasculary Surgery [address] [place] [address] Bilateral carotid artery stenosis [I65.23] Vasculary Surgery Comment on above: Bilateral carotid ar silvia stenosis [I65.23] Start: 10-26-2023 ANNUAL PCP TEAM APPLICATION ASSISTANT FAITH DISEASE VISIT ANNUAL PCP TEAM CHRONIC DISEASE VISIT [facility] Start: 10-26-2023 End: 10-26-2023 Patient encounter procedure 10/26/2023 9:15 AM EDT Office Visit Orthopedics [address] [phone] Regina Mcpherson MD [address] [place] [address] L-arthroscopic biceps tenodesis 07-02-2023 Orthopedics Comment on above: L-arthroscopic bicep s tenodesis 07-02-2023 Start: 10-23-2023 End: 10-23-2023 ambulatory 10/23/2023 6:00 PM EDT OT/PT/Speech Visit [facility] Physical Therapy [address] [place] [address] Alex Mendenhall, PT M75.112 (ICD-10-CM) - Incomplete tear of left rotator cuff, unspecified whether traumatic [facility] Comment on above: M75.112 (ICD-10-CM) - Incomplete tear of left rotator cuff, unspecified whether traumatic Start: 10-05-2023 End: 01-04-2024 25-hydroxyvitamin D3 [Mass/volume] in Serum or Plasma VITAMIN D 25 HYDROXY Lab Routine Vitamin D deficiency Expected: 10/05/2023, Expires: 01/04/2024 [facility] Work Phone: Comment on above: Expected: 10/05/2023 , Expires: 01/04/2024 Start: 10-05-2023 End: 01-04-2024 CBC W Auto Differential panel - Blood CBC + DIFF Lab Routine Acquired hypothyroidism Expected: 10/05/2023, Expires: 01/04/2024 [facility] Work Phone: Comment on above: Expected: 10/05/2023 , Expires: 01/04/2024 Start: 10-05-2023 End: 01-04-2024 Comprehensive metabolic 2000 panel - Serum or Plasma COMP METABOLIC PANEL Lab Routine Mixed hyperlipidemia Expected: 10/05/2023, Expires: 01/04/2024 [facility] Work Phone: Comment on above: Expected: 10/05/2023 , Expires: 01/04/2024 Start: 10-05-2023 End: 01-04-2024 Hemoglobin A1c in Blood HGB A1C Lab Routine Elevated hemoglobin A1c Expected: 10/05/2023, Expires: 01/04/2024 [facility] Work Phone: Comment on above: Expected: 10/05/2023 , Expires: 01/04/2024 Start: 10-05-2023 End: 01-04-2024 LIPID PANEL, NONFASTING LIPID PANEL, NONFASTING Lab Routine Mixed hyperlipidemia Bilateral carotid artery stenosis Expected: 10/05/2023, Expires: 01/04/2024 [facility] Work Phone: Comment on above: Expected: 10/05/2023 , Expires: 01/04/2024 Start: 10-05-2023 End: 01-04-2024 Thyrotropin [Units/volume] in Serum or Plasma TSH BLD Lab Routine Acquired hypothyroidism Expected: 10/05/2023, Expires: 01/04/2024 [facility] Work Phone: Comment on above: Expected: 10/05/2023 , Expires: 01/04/2024 Start: 10-05-2023 End: 01-04-2024 Urinalysis complete panel - Urine URINALYSIS, WITH MICROSCOPIC Lab Routine Mixed hyperlipidemia Expected: 10/05/2023, Expires: 01/04/2024 [facility] Work Phone: Comment on above: Expected: 10/05/2023 , Expires: 01/04/2024 Start: 09-23-2023 ANNUAL PCP TEAM APPLICATION ASSISTANT FAITH DISEASE VISIT ANNUAL PCP TEAM CHRONIC DISEASE VISIT [facility] Start: 09-10-2023 ANNUAL PCP TEAM APPLICATION ASSISTANT FAITH DISEASE VISIT ANNUAL PCP TEAM CHRONIC DISEASE VISIT [facility] Start: 06-25-2023 Advance Directive Discussion Advance Directive Discussion [facility] Start: 06-25-2023 Behavioral Health Screening Behavioral Health Screening [facility] Start: 06-25-2023 Depression Assessment Depression Ass essment [facility] Start: 04-21-2023 Covid-19 Vaccine () Covid-19 Vaccine () [facility] Start: 04-21-2023 Covid-19 Vaccine (7 - Pfizer risk series) Covid-19 Vaccine (7 - Pfizer risk series) [facility] Start: 03-03-2023 ANNUAL PCP TEAM APPLICATION ASSISTANT FAITH DISEASE VISIT ANNUAL PCP TEAM CHRONIC DISEASE VISIT [facility] Start: 02-23-2023 End: 04-25-2023 25-hydroxyvitamin D3 [Mass/volume] in Serum or Plasma VITAMIN D 25 HYDROXY Lab Routine Vitamin D deficiency Expected: 02/23/2023, Expires: 04/25/2023 [facility] Work Phone: Comment on above: Expected: 02/23/2023 , Expires: 04/25/2023 Start: 02-23-2023 End: 04-25-2023 Hemoglobin A1c in Blood HGB A1C Lab Routine Elevated hemoglobin A1c Expected: 02/23/2023, Expires: 04/25/2023 [facility] Work Phone: Comment on above: Expected: 02/23/2023 , Expires: 04/25/2023 Start: 02-23-2023 Influenza vaccination INFLUENZA (#1) [facility] Start: 02-23-2023 End: 04-25-2023 LIPID PANEL, NONFASTING LIPID PANEL, NONFASTING Lab Routine Mixed hyperlipidemia Expected: 02/23/2023, Expires: 04/25/2023 [facility] Work Phone: Comment on above: Expected: 02/23/2023 , Expires: 04/25/2023 Start: 02-23-2023 End: 04-25-2023 Thyrotropin [Units/volume] in Serum or Plasma TSH BLD Lab Routine Acquired hypothyroidism Expected: 02/23/2023, Expires: 04/25/2023 [facility] Work Phone: Comment on above: Expected: 02/23/2023 , Expires: 04/25/2023 Start: 01-04-2023 Adult depression screening assessment DEPRESSION SCREENING [facility] Start: 01-04-2023 ANNUAL PCP TEAM APPLICATION ASSISTANT FAITH DISEASE VISIT ANNUAL PCP TEAM CHRONIC DISEASE VISIT [facility] Start: 11-08-2022 ANNUAL PCP TEAM APPLICATION ASSISTANT FAITH DISEASE VISIT ANNUAL PCP TEAM CHRONIC DISEASE VISIT [facility] Start: 08-29-2022 End: 10-29-2022 25-hydroxyvitamin D3 [Mass/volume] in Serum or Plasma [facility] Work Phone: Comment on above: Expected: 08/29/2022 , Expires: 10/29/2022 Start: 08-29-2022 End: 10-29-2022 CBC W Auto Differential panel - Blood [facility] Work Phone: Comment on above: Expected: 08/29/2022 , Expires: 10/29/2022 Start: 08-29-2022 End: 10-29-2022 Comprehensive metabolic 2000 panel - Serum or Plasma [facility] Work Phone: Comment on above: Expected: 08/29/2022 , Expires: 10/29/2022 Start: 08-29-2022 End: 10-29-2022 Hemoglobin A1c in Blood [facility] Work Phone: Comment on above: Expected: 08/29/2022 , Expires: 10/29/2022 Start: 08-29-2022 End: 10-29-2022 LIPID PANEL, NONFASTING [facility] Work Phone: Comment on above: Expected: 08/29/2022 , Expires: 10/29/2022 Start: 08-29-2022 End: 10-29-2022 Thyrotropin [Units/volume] in Serum or Plasma [facility] Work Phone: Comment on above: Expected: 08/29/2022 , Expires: 10/29/2022 Start: 08-29-2022 End: 10-29-2022 Urinalysis complete panel - Urine [facility] Work Phone: Comment on above: Expected: 08/29/2022 , Expires: 10/29/2022 Start: 07-06-2022 ANNUAL PCP TEAM APPLICATION ASSISTANT FAITH DISEASE VISIT ANNUAL PCP TEAM CHRONIC DISEASE VISIT [facility] Start: 06-25-2022 ADVANCE DIRECTIVE DISCUSSION ADVANCE DIRECTIVE DISCUSSION [facility] Start: 06-25-2022 DEPRESSION ASSESSMENT DEPRESSION ASS ESSMENT [facility] Start: 06-23-2022 End: 08-23-2022 25-hydroxyvitamin D3 [Mass/volume] in Serum or Plasma VITAMIN D 25 HYDROXY Lab Routine Vitamin D deficiency Expected: 06/23/2022, Expires: 08/23/2022 [facility] Work Phone: Comment on above: Expected: 06/23/2022 , Expires: 08/23/2022 Start: 06-23-2022 End: 08-23-2022 CBC W Auto Differential panel - Blood CBC + DIFF Lab Routine Acquired hypothyroidism Medication management Expected: 06/23/2022, Expires: 08/23/2022 [facility] Work Phone: Comment on above: Expected: 06/23/2022 , Expires: 08/23/2022 Start: 06-23-2022 End: 08-23-2022 Comprehensive metabolic 2000 panel - Serum or Plasma COMP METABOLIC PANEL Lab Routine Mixed hyperlipidemia Elevated hemoglobin A1c Expected: 06/23/2022, Expires: 08/23/2022 [facility] Work Phone: Comment on above: Expected: 06/23/2022 , Expires: 08/23/2022 Start: 06-23-2022 End: 08-23-2022 Hemoglobin A1c in Blood HGB A1C Lab Routine Elevated hemoglobin A1c Expected: 06/23/2022, Expires: 08/23/2022 [facility] Work Phone: Comment on above: Expected: 06/23/2022 , Expires: 08/23/2022 Start: 06-23-2022 End: 08-23-2022 LIPID PANEL, NONFASTING LIPID PANEL, NONFASTING Lab Routine Mixed hyperlipidemia Expected: 06/23/2022, Expires: 08/23/2022 [facility] Work Phone: Comment on above: Expected: 06/23/2022 , Expires: 08/23/2022 Start: 06-23-2022 End: 08-23-2022 Thyrotropin [Units/volume] in Serum or Plasma TSH BLD Lab Routine Acquired hypothyroidism Expected: 06/23/2022, Expires: 08/23/2022 [facility] Work Phone: Comment on above: Expected: 06/23/2022 , Expires: 08/23/2022 Start: 06-23-2022 End: 08-23-2022 Urinalysis complete panel - Urine URINALYSIS, WITH MICROSCOPIC Lab Routine Mixed hyperlipidemia Expected: 06/23/2022, Expires: 08/23/2022 [facility] Work Phone: Comment on above: Expected: 06/23/2022 , Expires: 08/23/2022 Start: 05-26-2022 COVID-19 VACCINE (6 - Pfizer risk series) COVID-19 VACCINE (6 - Pfizer risk series) [facility] Start: 03-21-2022 End: 04-04-2022 Influenza virus A and B RNA and SARS-CoV-2 (COVID-19) N gene panel - Respiratory specimen by JOSE with probe detection [facility] Work Phone: Comment on above: Expected: 03/21/2022 , Expires: 04/04/2022 Start: 03-08-2022 COVID-19 VACCINE (5 - Booster for Pfizer series) COVID-19 VACCINE (5 - Booster for Pfizer series) [facility] Start: 02-23-2022 Influenza vaccination INFLUENZA (#1) [facility] Start: 12-31-2021 COVID-19 VACCINE (5 - Booster for Pfizer series) COVID-19 VACCINE (5 - Booster for Pfizer series) [facility] Start: 12-15-2021 Adult depression screening assessment DEPRESSION SCREENING [facility] Start: 09-30-2021 Screening for malign ant neoplasm of cervix Cervical Cancer Screening [facility] Start: 07-31-2021 COVID-19 VACCINE (4 - Booster for Pfizer series) COVID-19 VACCINE (4 - Booster for Pfizer series) [facility] Start: 06-25-2021 ADVANCE DIRECTIVE DISCUSSION ADVANCE DIRECTIVE DISCUSSION [facility] Start: 06-25-2021 DEPRESSION ASSESSMENT DEPRESSION ASS ESSMENT [facility] Start: 02-15-2007 FECAL OCCULT BLOOD FECAL OCCULT BLOO D [facility] Start: 02-15-2007 Screening for malign ant neoplasm of colon Fecal Occult Blood [facility] Start: 01-06-1997 COLOGUARD (FIT-DNA) COLOGUARD (FIT-D NA) [facility] Start: 01-06-[address] COLONOGRAPHY [facility] Start: 01-06-1997 Screening for malign ant neoplasm of colon [facility] Start: 01-06-1997 SIGMOIDOSCOPY SIGMO[facility]OSCOPY [facility] Start: 01-06-1970 Anxiety Screening Anxiety Screening [facility] Start: 01-06-1970 Depression Screening Depression Scre ening [facility] Bacteria identified in Urine by Culture URINE CULTURE Microbiology Routine Urinary frequency Ordered: 09/15/2022 [facility] Work Phone: Comment on above: Ordered: 09/15/2022 Bacteria identified in Urine by Culture URINE CULTURE Microbiology Routine Flank pain 09/22/2022 11:[address] [facility] Work Phone: Bacteria identified in Wound by Culture ABSCESS AND WOUND CULTURE WITH GRAM STAIN Microbiology Routine Infected wound 01/03/2023 3:[address] [facility] Work Phone: BD DXA TRABECULAR JERAD NE SCORE (TBS) BD DXA TRABECULAR BONE SCORE (TBS) Radiology Routine Encounter for screening for osteoporosis 12/11/2024 3:42 PM EDT [facility] End: 11-24-2023 Bone &/joint imaging whole body NM BONE WHOLE BODY Radiology Routine Rib pain on right side 1 Occurrences starting 10/25/2022 until 11/24/2023 [facility] Work Phone: Comment on above: 1 Occurrences starti ng 10/25/2022 until 11/24/2023 End: 10-22-2023 Ct abdomen & pelvis w/o contrast material CT FLANK WO IVCON Radiology Routine Flank pain 1 Occurrences starting 09/22/2022 until 10/22/2023 [facility] Work Phone: Comment on above: 1 Occurrences starti ng 09/22/2022 until 10/22/2023 End: 10-09-2023 Ct soft tissue neck w/contrast material CT NECK SOFT TISSUE W IVCON Radiology Routine Mass of soft tissue of neck 1 Occurrences starting 09/09/2022 until 10/09/2023 [facility] Work Phone: Comment on above: 1 Occurrences starti ng 09/09/2022 until 10/09/2023 End: 12-12-2024 DBT Breast - bilateral screening YAQUELIN SCREENING W SHAGGY Radiology Routine Encounter for screening mammogram for breast cancer 1 Occurrences starting 11/13/2023 until 12/12/2024 [facility] Work Phone: Comment on above: 1 Occurrences starti ng 11/13/2023 until 12/12/2024 End: 12-02-2022 Diagnostic mammography computer-aided detcj bi YAQUELIN DIAGNOSTIC BILAT Radiology Routine Mass of upper outer quadrant of left breast Breast cancer screening, high risk patient 1 Occurrences starting 11/02/2021 until 12/02/2022 [facility] Work Phone: Comment on above: 1 Occurrences starti ng 11/02/2021 until 12/02/2022 End: 02-03-2023 Dxa bone density study 1/> sites axial skel DXA-AXIAL SKELETON Radiology Routine Screening for osteoporosis Primary ovarian failure 1 Occurrences starting 01/04/2022 until 02/03/2023 [facility] Work Phone: Comment on above: 1 Occurrences starti ng 01/04/2022 until 02/03/2023 DXA Skeletal system. axial Views for bone density DXA-AXIAL SKELETON Radiology Routine Encounter for screening for osteoporosis 12/11/2024 3:[address] [facility] Work Phone: ECG COMPLETE [facility] Comment on above: Ordered: 06/16/2024 End: 11-08-2024 Flexible sigmoidoscopy study COLONOSCOPY DIAGNOSTIC Endoscopy Routine Altered bowel habits 1 Occurrences starting 11/09/2023 until 11/08/2024 [facility] Work Phone: Comment on above: 1 Occurrences starti ng 11/09/2023 until 11/08/2024 End: 05-05-2024 MRI SHOULDER WO IVCON LEFT MRI SHOULDER WO IVCON LEFT Radiology Routine Left shoulder pain, unspecified chronicity 1 Occurrences starting 04/06/2023 until 05/05/2024 [facility] Work Phone: Comment on above: 1 Occurrences starti ng 04/06/2023 until 05/05/2024 MRI SHOULDER WO IVCO N LEFT MRI SHOULDER WO IVCON LEFT Radiology Routine Left shoulder pain, unspecified chronicity 04/11/2023 10:[address] [facility] Work Phone: End: 04-02-2023 Mri spinal canal cervical w/o contrast matrl MRI CERVICAL SPINE WO IVCON Radiology Routine Cervicalgia 1 Occurrences starting 03/03/2022 until 04/02/2023 [facility] Work Phone: Comment on above: 1 Occurrences starti ng 03/03/2022 until 04/02/2023 Njx dx/ther agt pvrt facet jt crv/thrc 1 level NJX DX/THER AGT PVRT FACET JT CRV/THRC 1 LEVEL Procedures Routine Cervical spondylosis without myelopathy Ordered: 05/23/2022 [facility] Work Phone: Comment on above: Ordered: 05/23/2022 Njx dx/ther agt pvrt facet jt crv/thrc 2nd level NJX DX/THER AGT PVRT FACET JT CRV/THRC 2ND LEVEL Procedures Routine Cervical spondylosis without myelopathy Ordered: 05/23/2022 [facility] Work Phone: Comment on above: Ordered: 05/23/2022 OUTSIDE VENDOR CARDI AC OUTPATIENT EVENT RECORDER OUTSIDE VENDOR CARDIAC OUTPATIENT EVENT RECORDER Holter Routine Dizziness PVC (premature ventricular contraction) Ordered: 06/16/2024 [facility] Comment on above: Ordered: 06/16/2024 OUTSIDE VENDOR CARDI AC OUTPATIENT EXTENDED RHYTHM RECORDING (WITHOUT TELEMETRY) OUTSIDE VENDOR CARDIAC OUTPATIENT EXTENDED RHYTHM RECORDING (WITHOUT TELEMETRY) Holter Routine Palpitations Ordered: 03/04/2025 [facility] Work Phone: Comment on above: Ordered: 03/04/2025 Urinalysis complete panel - Urine URINALYSIS, WITH MICROSCOPIC Lab Routine Flank pain 09/22/2022 11:[address] [facility] Work Phone: End: 12-02-2022 Us breast uni real time with image limited US BREAST LTD LT Radiology Routine Mass of upper outer quadrant of left breast Breast cancer screening, high risk patient 1 Occurrences starting 11/02/2021 until 12/02/2022 [facility] Work Phone: Comment on above: 1 Occurrences starti ng 11/02/2021 until 12/02/2022 End: 10-16-2024 US Carotid arteries - bilateral US CAROTID ARTERIES [facility] Vascular Lab Routine Bilateral carotid artery stenosis 1 Occurrences starting 10/17/2023 until 10/16/2024 [facility] Comment on above: 1 Occurrences starti ng 10/17/2023 until 10/16/2024 End: 10-22-2023 XR ABDOMEN 1V SUPINE XR ABDOMEN 1V SUPINE Radiology Routine Flank pain 1 Occurrences starting 09/22/2022 until 10/22/2023 [facility] Work Phone: Comment on above: 1 Occurrences starti ng 09/22/2022 until 10/22/2023 XR ABDOMEN 1V SUPINE XR ABDOMEN 1V SUPINE Radiology Routine Flank pain 09/22/2022 11:[address] [facility] Work Phone: End: 10-22-2023 XR RIBS/CHEST 3V AP RIB/OBLS/CXR RIGHT XR RIBS/CHEST 3V AP RIB/OBLS/CXR RIGHT Radiology Routine Flank pain Rib pain on right side 1 Occurrences starting 09/22/2022 until 10/22/2023 [facility] Work Phone: Comment on above: 1 Occurrences starti ng 09/22/2022 until 10/22/2023 XR RIBS/CHEST 3V AP RIB/OBLS/CXR RIGHT XR RIBS/CHEST 3V AP RIB/OBLS/CXR RIGHT Radiology Routine Flank pain Rib pain on right side 09/22/2022 11:[address] [facility] Work Phone: [facility] Immunizations Immunization Date Immunization Notes Care Provider Fa pa 10-29-2024 COVID-19 vaccine, ag e 12+ yr (PFIZER-BIONTECH COMIRNATY) Liam Wilkins MD Work Phone: [facility] 04-19-2024 influenza virus vacc ine, unspecified formulation Liam Wilkins MD Work Phone: [facility] 04-12-2024 influenza, high dose seasonal, preservative-free Namrata Clifford [facility] 04-11-2024 COVID-19 vaccine, ag e 12+ yr, bivalent (MODERNA) Namrata Clifford [facility] 10-17-2023 COVID-19 vaccine, ag e 12+ yr, season (PFIZER-BIONTECH) Liam Wilkins MD Work Phone: [facility] 02-24-2023 COVID-19 vaccine, ag e 12+ yr, season (PFIZER-BIONTECH) Liam Wilkins MD Work Phone: [facility] 02-24-2023 influenza, high dose seasonal, preservative-free Liam Wilkins MD Work Phone: [facility] 02-24-2023 respiratory syncytia l virus (RSV) vaccine, unspecified formulation Liam Wilkins MD Work Phone: [facility] 02-24-2023 influenza virus vacc ine, unspecified formulation Liam Wilkins MD Work Phone: [facility] 10-02-2020 COVID-19 vaccine, ag e 12+ yr (PFIZER-BIONTECH - PURPLE TOP) Liam Wilkins MD Work Phone: [facility] 09-11-2020 COVID-19 vaccine, ag e 12+ yr (PFIZER-BIONTECH - PURPLE TOP) Liam Wilkins MD Work Phone: [facility] Work Phone: 06-10-2020 tetanus toxoid, redu sony diphtheria toxoid, and acellular pertussis vaccine, adsorbed Liam Wilkins MD Work Phone: [facility] 06-10-2020 zoster vaccine recombinant Liam Wilkins MD Work Phone: [facility] 04-17-2020 influenza, high-dose , quadrivalent vaccine (FLUZONE HIGH DOSE QUADRIVALENT) Liam Wilkins MD Work Phone: [facility] 08-22-2019 zoster vaccine recombinant Liam Wilkins MD Work Phone: [facility] 07-03-2018 influenza, high dose seasonal, preservative-free Liam Wilkins MD Work Phone: [facility] 12-31-2017 pneumococcal polysaccharide vaccine, 23 valent Liam Wilkins MD Work Phone: [facility] 03-20-2017 influenza, high dose seasonal, preservative-free Liam Wilkins MD Work Phone: [facility] 12-20-2016 pneumococcal conjuga te vaccine, 13 valent Liam Wilkins MD Work Phone: [facility] 03-21-2016 influenza, injectabl e, quadrivalent, contains preservative Liam Wilkins MD Work Phone: [facility] 06-08-2014 influenza, seasonal, injectable Liam Wilkins MD Work Phone: [facility] 04-08-2009 influenza virus vacc ine, unspecified formulation Liam Wilkins MD Work Phone: [facility] 01-30-2008 tetanus toxoid, redu sony diphtheria toxoid, and acellular pertussis vaccine, adsorbed Liam Wilkins MD Work Phone: [facility] Work Phone: 12-22-1997 diphtheria and tetan us toxoids, adsorbed for pediatric use Liam Wiklins MD Work Phone: [facility] Work Phone: 10-23-1994 pneumococcal polysaccharide vaccine, 23 valgina Wilkins MD Work Phone: [facility] Payers Date Payer Category Payer Self-pay 2024 Unknown [id number] 2021 Blue Cross Blue Shield BLUE ACCE SS PPO Member Subscriber Plan / Payer (Effective 2021-Present) Name: Montserrat Aguayo Relation to Subscriber: Self Name: Montserrat Aguayo Payer ID: [id number] (NAIC) Type: PPO Address: [address] [place] [id number] 2021 Unknown RUPERT BLUE ACCE SS PPO [id number] 2021-Present [phone] [address] [place] [address] PPO [id number] 2021 Unknown ANTHLEIA BLUE ACCE PPO [id number] 2021-Present [phone] [address] [place] [address] O [id number] 2021 Unknown [id number] 2020 Private Health Insurance DARCIE Kat ESTHER OA [id number] 2020-2021 [address] [place] [address] Open Access [id number] Unknown [id number] Unknown [id number] Social History Date Type Detail Facility Start: 04-25-2011 End: 02-22-2024 Tobacco smoking status NHIS Ex-smoker [facility] Start: 06-25-1969 End: 06-25-1981 History of tobacco use Current smoker [facility] Start: 06-25-1969 End: 06-25-1981 History of tobacco use Cigarette Smoker [facility] Start: 12-22-2020 End: 07-13-2021 Alcohol intake Current non-drinker of alcohol (finding) [facility] Start: 12-04-2019 History SDOH Alcohol Frequency 5 [facility] Start: 12-04-2019 End: 06-03-2020 History SDOH Alcohol Std Drinks 1 [facility] Start: 12-04-2019 History SDOH Social Connections Phone 4 [facility] Start: 12-04-2019 End: 06-03-2020 History SDOH Social Connections Get Together 2 [facility] Start: 12-04-2019 History SDOH Social Connections Living 3 [facility] Start: 12-04-2019 History SDOH Physica l Activity DPW 6 [facility] Start: 12-04-2019 Education 20 [facility] Start: 1950 Sex Assigned At Not on file [facility] Start: 11-22-2020 End: 05-23-2022 Exposure to SARS-CoV-2 (event) Not sure [facility] Start: 11-02-2021 End: 02-24-2025 Alcohol intake Current drinker of alcohol (finding) [facility] Start: 11-02-2021 History SDOH Alcohol Comment wine with meals [facility] Start: 04-25-2011 End: 10-25-2022 Cigarettes smoked current (pack per day) - Reported 2 [facility] Work Phone: Start: 04-25-2011 End: 02-22-2024 Tobacco use and exposure Smokeless tobacco non-user [facility] Start: 10-25-2022 End: 01-03-2023 Tobacco use panel [facility] Work Phone: Start: 05-26-2012 Adult Depression Scr eening Assessment 2 [facility] Work Phone: Do you belong to any clubs or organizations such as rastafarian groups, unions, fraternal or athletic groups, or school groups? Yes [facility] Are you now , , , , never or living with a partner? [facility] How often to you hav e a drink containing alcohol? 4 or more times a week [facility] Work Phone: How many standard dr inks containing alcohol do you have on a typical day? 1 or 2 [facility] Work Phone: How often do you hav e 6 or more drinks on 1 occasion? Never [facility] Work Phone: Do you feel stress - tense, restless, nervous, or anxious, or unable to sleep at night because your mind is troubled all the time - these days [OSQ] Only a little [facility] (I/We) worried kevin er (my/our) food would run out before (I/we) got money to buy more. Never true [facility] In the past 12 month s, was there a time when you were not able to pay the mortgage or rent on time? No [facility] How many standard dr inks containing alcohol do you have on a typical day? 3 or 4 [facility] Medical Equipment Procedure Code Equipment Code Equipment Origin al Text Equipment Identifier Dates Exp Tiss 550ml S tyl Cpx3 Med - [id number] Start: 05-25-2011 Mesh Srg Surgipr o 6x6in Liset - [id number] Start: 12-13-2012 Comment on above: Description: Surgipr o [place]. Poly. Mesh Mesh Srg Surgipr o 6x6in Liset - [id number] Start: 12-13-2012 Comment on above: Description: surgipr o mesh Port Implantable Power Port 6fr - [id number] Start: 07-06-2011 Lnt Implant Syst em 4.75 Bc [facility] [id number] Start: 07-02-2023 Functional Status Date Assessment Result Facility 01-05-2015 Are you deaf, or do you have serious difficulty hearing No 01/05/2015 10:21 AM Petra Morton RN No [facility] 01-05-2015 Are you blind, or do you have serious difficulty seeing, even when wearing glasses No 01/05/2015 10:21 AM Petra Morton RN No [facility] 01-05-2015 Do you have serious difficulty walking or climbing stairs No 01/05/2015 10:21 AM Petra Morton RN No [facility] 01-05-2015 Do you have difficul ty dressing or bathing No 01/05/2015 10:21 AM EDPetra Kumar, CHRISTIE No [facility] 01-05-2015 Because of a physica l, mental, or emotional condition, do you have difficulty doing errands alone such as visiting a physician's office or shopping No 01/05/2015 10:21 AM Petra Morton, CHRISTIE No [facility] Mental Status Date Assessment Result Facility 01-05-2015 Because of a physica l, mental, or emotional condition, do you have serious difficulty concentrating, remembering, or making decisions No 01/05/2015 10:21 AM EDPetra Kumar, CHRISTIE No [facility] Clinical Notes 11-24-2013 to 03-04-2025 Ajay Uribe LPN - 03/04/2025 1:06 PM JOHNNYTAnuja Colon MD - 03/04/2025 11:00 AM EDTPatient InstructionsTelephone Encounter - Liam Wilkins MD - 03/02/2025 9:15 PM EDTPatient Instructions Note Date & Type Note Facility 03-04-2025 History of Present illness Narrative EVENT MONITOR DISPOSABLE PATCH INSTRUCTIONS Patient Name: Montserrat Aguayo Clinic Number: [id number] Skin prepped and cleansed with alcohol Patch secured to prepped area Monitor Activated Serial #: [id number] Patient Instructed: Prescribed order timeframe Bathing guidelines Usage of event button and diary documentation Return of monitor at the end of prescribed order Call with problems [phone] or [phone]. [phone] Patient expresses a good understanding of instructions Ajay Uribe LPN Images from the original note were not included. [facility] SECTION OF REGIONAL CARDIOLOGY OUTPATIENT VISIT DATE 02/22/2024 OUTPATIENT VISIT TYPE Established PRIMARY CARE PHYSICIAN: Liam Wilkins [address] [place] [address] HISTORY OF PRESENT ILLNESS: Ms. Aguayo is a 74 year old female, history of hypothyroidism, carotid artery stenosis 20-39% ICA stenosis bilaterally, aortic stenosis, hyperlipidemia, presents for f/u. Last seen on 02/22/24. She denies chest pain, SOB, palpitations, orthopnea, PND, leg swelling, lightheadedness, syncope. She presented to [facility] in May 2024 with palpitations and dizziness. She wore an event monitor from 06/23 to 07/22/2024 which showed episodes of PVCs, ventricular bigeminy, PACs with sinus rhythm. She was started on metoprolol and since then states that her palpitations are improved. She did PT for dizziness which has since resolved. TTE 06/19/2023: EF 54%, 0.9/0.9, mild TR, paradoxical low-flow, low gradient severe . Trace to 1+ AR. Peak AV velocity 272. LAINEY 0.72. Mid/distal ascending aorta 2.8/2.9 Prior hx: Previously seen by Dr. Deng Joe 06/22/2023. RONY was recommended to assess her aortic valve severity however RONY declined and lasted another modality. CT scan was offered. Cardiac CT 06/27/2023 revealed a trileaflet aortic valve with trivial calcification of leaflets. No evidence of any significant stenosis. Trivial calcific atherosclerotic plaque in the distal left main, otherwise no calcific plaque noted. No significant coronary stenosis however current study not optimized for assessment of CAD. Normal aortic size. She exercised 3-4x per week-engages in 30 mins of resistance training machines as well as walks 1 mile per day. She is limited by left leg pain and is following with podiatry. She is planned for MRI of the leg to assess for any stress fracture. PAST MEDICAL HISTORY Diagnosis Date Acquired hypothyroidism 11/29/2005 Bilateral carotid artery stenosis 07/13/2021 US: 06/2021: Stephen 20-40% Brain aneurysm (HCC) 02/02/2025 MRI: 01/2025, consult to neurosurgery placed. Breast cancer (HCC) 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, right (HCC) 10/05/2017 Cataracts, bilateral 12/20/2016 Some relation to steroids with her asthma. Cervicalgia 01/27/2011 Class 1 obesity due to excess calories without serious comorbidity with body mass index (BMI) of 33.0 to 33.9 in adult 12/31/2017 Diverticulosis of large intestine Elevated hemoglobin A1c 09/10/2017 Ex-smoker Family history of brain aneurysm 12/31/2024 Mother who . 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 Incomplete tear of left rotator cuff 04/16/2023 Internal hemorrhoids without mention of complication Irritable bowel syndrome with both constipation and diarrhea 07/28/2020 Labral tear of long head of left biceps tendon 04/16/2023 Lichen sclerosus Living will in place 01/04/2022 DPA: Deshawn () Mass of left lower leg 07/03/2018 Benign w/u Metabolic syndrome 04/19/2016 Mild persistent asthma (HCC) 09/07/2011 Mitral valve disorders(424.0) Mixed hyperlipidemia 11/29/2005 Neural foraminal stenosis of cervical spine 03/21/2022 Mod-sever on the left Neutropenia, drug-induced 08/11/2011 Nonrheumatic aortic valve stenosis 06/13/2024 Seeing Cardio: Dr. Colon Obesity Osteopenia 12/22/2024 Right Hip Over weight 10/17/2023 Plantar fasciitis 11/24/2013 Primary insomnia 07/06/2021 Right-sided chest wall pain 10/05/2017 Secondary to breast cancer radiation. RSD (reflex sympathetic dystrophy) Sebaceous cyst 01/20/2014 Spinal stenosis, unspecified region other than cervical 03/02/2006 Tear of left glenoid labrum 04/16/2023 Trigger ring finger of right hand 06/23/2014 Vitamin D deficiency 09/15/2019 PAST SURGICAL HISTORY Procedure Laterality Date ADENOIDECTOMY PRIMARY <AGE 14 Adenoidectomy BREAST BIOPSY CORE 04/11/2011 right breast 2:00, 4:00 and 10:00 BREAST BIOPSY INCISIONAL 14 years ago right and left breast- benign BREAST RECONSTRUC W FREE FLAP 12/13/2012 bilateral breast BREAST RECONSTRUC W TISS EXPANDR 05/25/2011 right breast with elevation of the serratus flap CARDIAC CATH 03/20/2017 normal, by Dr. Colvin COLONOSCOPY 01/03/2024 repeat 3 years COLONOSCOPY FLX DX W/COLLJ SPEC WHEN PFRMD 04/08/2007 COLONOSCOPY FLX DX W/COLLJ SPEC WHEN PFRMD N/A 09/06/2016 MAC COLONOSCOPY FLX DX W/COLLJ SPEC WHEN PFRMD 02/10/2019 Colonoscopy INSJ TUNNELED CTR VAD W/SUBQ PORT AGE 5 YR/> 07/06/2011 left IJ MASTECTOMY, SIMPLE, COMPLETE 05/25/2011 right breast skin-sparing with SLND/level 1 LND MASTECTOMY, SIMPLE, COMPLETE 12/13/2012 prophylactic left breast PAST SURGICAL HISTORY OF squamous cell skin ca nose, lips, face PAST SURGICAL HISTORY OF 1972 removal of sweat glands (bilateral axilla (right x 2)and groin) PAST SURGICAL HISTORY OF 03/06/2016 removal of polyp at [facility] [employer] COVID-19 VACCINE, AGE 12+ YR (PURPLE TOP) 09/11/2020 first vaccine REM LESION TRUNK,ARM, LEG <0.5 CM 01/24/2014 Exc. deyanira cyst left inframammary REPAIR ROTATOR CUFF,ACUTE Left 07/02/2023 RMVL MOISES CTR VAD W/SUBQ PORT/BUHR MILL OPERATOR CTR/PRPH INSJ 01/18/2012 Removal left IJ port RPR COMPLEX RETINA DETACH VITRECT &MEMBRANE PEEL 09/2014 left retina SIGMOIDOSCOPY FLX DX W/COLLJ SPEC BR/WA IF PFRMD 01/27/2002 Sigmoidoscopy TONSILLECTOMY PRIMARY/SECONDARY <AGE 12 Tonsillectomy Social History Tobacco Use Smoking status: Former Current packs/day: 0.00 Average packs/day: 2.0 packs/day for 12.0 years (24.0 ttl pk-yrs) Types: Cigarettes Start date: 06/25/1969 Quit date: 06/25/1981 Years since quittin.7 Smokeless tobacco: Never Vaping Use Vaping status: Never Used Substance Use Topics Alcohol use: Yes Alcohol/week: 7.0 standard drinks of alcohol Types: 7 Glasses of wine per week Comment: wine with meals Drug use: No FAMILY HISTORY Problem Relation Age of Onset Breast Cancer Mother dx in her 50's other (uterine cancer) Mother dx before breast cancer Aneurysm Mother Brain Heart Father [place], valve disorder Headache Sister other (other cances) Sister no known family h/o: ovarian; prostate, colon, pancreatic, lung, thyroid, brain, melenoma, leukemia, sarcomas No Known Problems Maternal Grandmother Heart Attack Maternal Grandfather other (rectal cancer) Paternal Grandmother 95 Colon Cancer Paternal Grandmother No Known Problems Paternal Grandfather No Known Problems Daughter Heart Son Breast Cancer Maternal Aunt 1) details unknown Breast Cancer Maternal Aunt 2) details unknown ALLERGIES Allergen Reactions Typhoid Vaccine Intolerance Adhesive Tape (Haley* Other: See Comments after 2 days area becomes red and itches Cats Intolerance Diclofenac Other: See Comments elevated liver enz Dogs Intolerance Dust Intolerance Meloxicam Other: See Comments Swollen eyelids Mold Intolerance Tegretol [Carbamaze* Intolerance blood problem CURRENT MEDICATIONS: amitriptyline (ELAVIL) 25 mg tablet Take 2 tablets by mouth daily at bedtime. naproxen (NAPROSYN) 500 mg tablet Take 1 tablet by mouth two times a day as needed (for pain/inflammation). Take with food. metoprolol succinate ER (TOPROL XL) 25 mg 24 hr tablet Take 1 tablet by mouth once daily. pioglitazone (ACTOS) 30 mg tablet Take 1 tablet by mouth once daily. atorvastatin (LIPITOR) 80 mg tablet Take 1 tablet by mouth once daily. VENTOLIN HFA 90 mcg/actuation inhaler Inhale 2 puffs as instructed every 4 hours as needed. clobetasol (TEMOVATE) 0.05 % ointment Apply 1 application to affected area two times a day. levothyroxine (SYNTHROID) 100 mcg tablet Take 1 tablet by mouth daily before breakfast. acetaminophen (TYLENOL) 500 mg tablet Take 1,000 mg by mouth at bedtime as needed. COMPOUNDED PRESCRIPTION NEBULIZER and supplies FOR HOME USE. DX: J45.30, J45.90. Length of need is life. This is a medically necessary devise for management of patients lung disease. Current machine recently stopped working. While trying to use it started to smoke and stopped. PHYSICAL EXAMINATION: BP 126/64 (BP Position: Sitting) Pulse 79 Ht 170.2 cm (5' 7) Wt 94 kg (207 lb 3.7 oz) LMP 01/06/2009 SpO2 97% BMI 32.46 kg/m General: Appears comfortable in no apparent cardiopulmonary distress Neck: No JVD, no bruits CVS: S1, S2, No m/r/g Chest: CTAB Abd: Soft, nontender, no masses, BS present Ext: No pedal edema, pedal pulses 2+ bilaterally Neuro: No focal neurological deficits CARDIOVASCULAR MEDICINE TESTING: Last ECHO Result Conclusion ECHO Collected: 06/19/2023 7:56 AM (Edited Result - FINAL) Impression: CONCLUSIONS: - Exam indication: Abnormal ECG - The left ventricle is normal in size. Left ventricular systolic function is normal. EF = 54 5% (2D biplane) Grade I left ventricular diastolic dysfunction. - The right ventricle is normal in size. Right ventricular systolic function is normal. - There appears to be paradoxical low flow, low gradient severe aortic valve stenosis caused by calcified valve. AV area is 0.72 cm (0.34 cm /m ) by BERTO youngerI. LAINEY could not be assessed by planimetry due to poor visualization of the aortic valve. The peak gradient is 30 mmHg, the mean gradient is 17 mmHg and the dimensionless valve index is 0.21. - Exam was compared with the prior echocardiographic exam performed on 06/27/2011. There was no aortic stenosis in 2011 and LVEF was 60+/-5%. * * * Final (Updated) * * * Last EKG Result Conclusion ECG COMPLETE Collected: 06/16/2024 3:37 PM (Final result) Impression: NORMAL SINUS RHYTHM NORMAL ECG Confirmed by MD PORTIA, QAB ([id number]) on 06/24/2024 3:21:05 PM ASSESSMENT/PLAN: 1. Aortic valve stenosis, etiology of cardiac valve disease unspecified - ICD9: 424.1, ICD10: I35.0 Per TTE 2022: paradoxical low-flow, low gradient severe . Trace to 1+ AR. Peak AV velocity 272. LAINEY 0.72. No e/o stenosis per CT - We discussed repeating TTE. She is declining at this time. 2. Carotid artery stenosis- 20-39% bilateral carotid artery stenosis. 3. Coronary artery stenosis- trivial LM calcific plaque per cardiac CT. - Aim for LDL <70. LDL 90 on 10/27/24. - Increase atorvastatin to 80 mg p.o. daily. Start zetia - Check lipids and LFTs in 4 to 6 weeks - Low cholesterol diet- limit red meats, shellfish. Prioritize white meats such as chicken breast, turkey breast, fish for animal protein source, green vegetables, fruits, healthy nuts, heart healthy oats. - RTC in 6-8 months, sooner if medically necessary 4. PVCs - Obtain 1 week Zio patch - On metoprolol Anuja Colon MD, [facility] Non invasive Sports Case Repairer documented in this encounter [facility] 03-04-2025 Instructions Anuja Colon MD - 03/04/2025 11:35 AM EDT Start ezetimibe for cholesterol in addition to your atorvastatin. Proceed to the lab 4-6 weeks after starting ezetimibe to check your lipid panel and liver function lab tests. documented in this encounter [facility] 03-02-2025 Telephone encounter Note The following approved medication requests have been transmitted electronically. Requested Prescriptions Signed Prescriptions Disp Refills amitriptyline (ELAVIL) 25 mg tablet 180 tablet 1 Sig: Take 2 tablets by mouth daily at bedtime. Authorizing Provider: LIAM WILKINS MD [facility] 03-02-2025 Miscellaneous Notes The following approved medication requests have been transmitted electronically. Requested Prescriptions Signed Prescriptions Disp Refills amitriptyline (ELAVIL) 25 mg tablet 180 tablet 1 Sig: Take 2 tablets by mouth daily at bedtime. Authorizing Provider: LIAM WILKINS MD Prescription Refill Information The patient has been identified by name and date of : Yes Caregiver verified no other encounters exist for this prescription request: Yes Caregiver confirmed with patient/requestor that no other refills are due, in the near future, with this provider at this time: Yes The last office visit in the department: 01-21-25 Does the patient have a future office visit with this provider/department: Yes Requested Prescriptions Pending Prescriptions Disp Refills amitriptyline (ELAVIL) 25 mg tablet 180 tablet 1 Sig: Take 2 tablets by mouth daily at bedtime. Patricia Condon March 02, 2025 8:20 AM documented in this encounter [facility] 03-02-2025 Telephone encounter Note Prescription Refill Information The patient has been identified by name and date of : Yes Caregiver verified no other encounters exist for this prescription request: Yes Caregiver confirmed with patient/requestor that no other refills are due, in the near future, with this provider at this time: Yes The last office visit in the department: 01-21-25 Does the patient have a future office visit with this provider/department: Yes Requested Prescriptions Pending Prescriptions Disp Refills amitriptyline (ELAVIL) 25 mg tablet 180 tablet 1 Sig: Take 2 tablets by mouth daily at bedtime. Patricia Condon March 02, 2025 8:20 AM [facility] 02-24-2025 Instructions Jessica Oneil APRN.INTEL RECRUITER - 02/24/2025 10:14 AM EDT Today you saw: Jessica MCCANN APRN at the [facility]'s Cerebrovascular Neurosurgery/Endovascular Department Thank you seeing me today. Our office will try to remind you about your next follow-up around 2-3 months before you are due. If you do not hear from us, please call [phone], option 2 or send a My Chart message to connect with one of our caregivers. Please join us for our Brain Aneurysm support group: [facility]- Conference Room B (8th floor) [address] [place] [address] Rd, [place], [place] Upcoming dates & topics: 6:00-7:00PM September 30, 2024- Disability and social work resources December 30, 2024- Aneurysm rupture and family screening April 07, 2025 - What to do when you plateau in your recovery? Stroke support group information can be found on: [email or web address] Save the date: Brain Aneurysm Awareness 5K Run/ Walk on Friday March 14, 2025 [email or web address] Call 911 right away if you or someone else has any of these stroke symptoms: Sudden numbness or weakness in the face, arm, or leg, especially on one side of the body. Sudden confusion, trouble speaking, slurred speech, or difficulty understanding speech. Sudden trouble seeing or double vision in one or both eyes. Sudden trouble walking, dizziness, loss of balance, or lack of coordination. Sudden severe headache, worst headache of life, often accompanied by neck stiffness and vomiting. We discussed your recent MRA findings: - You have two findings: a right cavernous aneurysm and a possible left posterior communicating artery (PCOM) infundibulum. - The right cavernous aneurysm is located outside the brain and poses very low risk of causing a stroke. Its rupture risk is essentially 0% over the next 5 years. It has been stable since 2021. - The left PCOM finding is likely an infundibulum (a normal variant where an artery branches off). This also appears stable and does not currently look concerning. - I will send your imaging to Dr. Moncada for review to confirm these findings. If he agrees that the left PCOM is an infundibulum, we will follow up with imaging in 2 years. If he feels further evaluation is needed, we may consider a cerebral angiogram for a more detailed 3D view of the blood vessels. - I recommend that your siblings and children undergo screening for aneurysms, given your family history. I have sent a letter to your MyChart with instructions for them to share with their healthcare providers. We discussed living with an aneurysm: - There are no restrictions on your daily activities. You can fly, travel, and exercise as usual. - Avoid skydiving, deep scuba diving, or heavy weightlifting. When lifting objects, always remember to breathe to avoid sudden spikes in blood pressure. - Keep your blood pressure under 130. Your current reading of 130/71 is excellent. We discussed your next steps: - I will follow up with Dr. Moncada and notify you of his recommendations. - If you have any new symptoms, such as severe headaches, vision changes, or neurological symptoms, please contact our office or go to the emergency room immediately. You are doing well overall, and I encourage you to continue your current healthy habits, including regular exercise and maintaining good blood pressure control. documented in this encounter [facility] 02-24-2025 Note HNO ID: [id number] Author: JESSICA ONEIL APRN.ABI Service: ? Author Type: Nurse Practitioner Type: Progress Notes Filed: 02/26/2025 14:39 Note Text: Cerebrovascular Center: Cerebrovascular Neurosurgery and Endovascular Surgical Neuroradiology New Visit Montserrat Aguayo [facility]#: [id number] Date of Service: 02/24/2025 Primary Care Provider: Liam Wilkins MD Collaborating Physician: Marvin Ivory MD [facility] REASON FOR VISIT RFV Montserrat Aguayo is a 75 yof with PMH of vertigo, HLD, aortic valve stenosis, asthma, diverticulosis, GERD, fatty liver, IBS, spinal stenosis, b/l carotid stenosis, PACs, and recent finding of possible aneurysm found on recent MRA. Montserrat reports that approximately two weeks prior to the MRA, she experienced significant pain in her right eye, described as a sensation of pressure with each blink. She consulted her eye doctor, who found no foreign bodies in the eye, and subsequently saw Dr. Wilkins, who ordered the MRA to investigate further. Although the pain has improved, she continues to feel as though there is something in her eye. She notes that the discomfort is exacerbated by hot water on her face during showers, as advised by her eye doctor. Montserrat also reports occasional visual disturbances described as crystals or wavy patterns in her vision, which her eye doctor attributed to stress. These episodes are infrequent and brief. Montserrat does not endorse any headaches, vision loss, diplopia, numbness, or weakness. She does report a sensation in her feet described as feeling like an extra skin, which has been present since undergoing chemotherapy 12 years ago. Montserrat recalls a past episode of dizziness when turning over or lying down, for which she sought emergency care. She was informed it might be due to dehydration or an issue with crystals in the head. She attended physical therapy and learned exercises to manage the dizziness, which has since improved. She currently exercises four times a week at the [facility]. 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: Right Family history Subarachnoid hemorrhage/aneurysm: Mother had a fatal SAH from aneurysm (age of 74) Stroke: denies Vascular malformations: Denies Other neurologic diseases: Denies + Cancer in the family REVIEW OF SYSTEMS Head: (-) headaches Eyes: (+) foreign body sensation in eyes, (+) visual disturbances, (-) vision loss, (-) diplopia Neurological: (+) bilateral foot paresthesia, (-) numbness, (-) weakness, (-) dizziness, (-) seizures ACTIVE PROBLEM LIST Acquired Hypothyroidism Mixed Hyperlipidemia Spinal stenosis, unspecified region other than cervical Rsd (Reflex Sympathetic Dystrophy) Mitral valve disorders(424.0) Neck Pain Neutropenia, drug-induced (HCC) Mild Persistent Asthma (Hcc) Plantar Fasciitis Sebaceous Cyst Ganglion and Cyst of Synovium, Tendon and Bursa Trigger Ring Finger of Right Hand Fatty Liver Metabolic Syndrome Gastroesophageal Reflux Disease Without Esophagitis Diverticulosis of Large Intestine Internal Hemorrhoids Without Mention of Complication History of Detached Retina Repair Cataracts, Bilateral Elevated Hemoglobin A1c Carcinoma of Female Breast, Right (Hcc) Right-Sided Chest Wall Pain Mass of Left Lower Leg Ex-Smoker History of Skin Cancer History of Colonic Polyps Vitamin D Deficiency Irritable Bowel Syndrome With Both Constipation and Diarrhea Bilateral Carotid Artery Stenosis Living Will in Place Advance Directive Discussed With Patient Medication Management Neural Foraminal Stenosis of Cervical Spine Acute Pain of Left Shoulder Tear of Left Glenoid Labrum Incomplete Tear of Left Rotator Cuff Labral Tear of Long Head of Left Biceps Tendon Over Weight Colon Cancer Screening Nonrheumatic Aortic Valve Stenosis Vertigo Skin Cancer Screening Family History of Brain Aneurysm Brain Aneurysm (Hcc) PAST MEDICAL HISTORY Diagnosis Date Acquired hypothyroidism 11/29/2005 Bilateral carotid artery stenosis 07/13/2021 US: 06/2021: Stephen 20-40% Brain aneurysm (HCC) 02/02/2025 MRI: 01/2025, consult to neurosurgery placed. Breast cancer (HCC) 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, right (HCC) 10/05/2017 Cataracts, bilateral 12/20/2016 Some relation to steroids with her asthma. Cervicalgia 01/27/2011 Class 1 obesity due to excess calories without serious comorbidity with body mass index (BMI) of 33.0 to 33.9 in adult 12/31/2017 Diverticulosis of large intestine Elevated hemoglobin A1c 09/10/2017 Ex-smoker Family history of brain aneurysm 12/31/2024 Mother who . Fatty liver 04/19/2016 Foot pain, left 12/31/2017 Ganglion and cyst of synovium, tendon and bursa (more content not included)... [facility] 02-24-2025 History of Present illness Narrative Images from the original note were not included. Cerebrovascular Center: Cerebrovascular Neurosurgery and Endovascular Surgical Neuroradiology New Visit Montserrat Aguayo [facility]#: [id number] Date of Service: 02/24/2025 Primary Care Provider: Liam Wilkins MD Collaborating Physician: Marvin Ivory MD Subjective [facility] REASON FOR VISIT RFV Montserrat Aguayo is a 75 yof with PMH of vertigo, HLD, aortic valve stenosis, asthma, diverticulosis, GERD, fatty liver, IBS, spinal stenosis, b/l carotid stenosis, PACs, and recent finding of possible aneurysm found on recent MRA. Montserrat reports that approximately two weeks prior to the MRA, she experienced significant pain in her right eye, described as a sensation of pressure with each blink. She consulted her eye doctor, who found no foreign bodies in the eye, and subsequently saw Dr. Wilkins, who ordered the MRA to investigate further. Although the pain has improved, she continues to feel as though there is something in her eye. She notes that the discomfort is exacerbated by hot water on her face during showers, as advised by her eye doctor. Montserrat also reports occasional visual disturbances described as crystals or wavy patterns in her vision, which her eye doctor attributed to stress. These episodes are infrequent and brief. Montserrat does not endorse any headaches, vision loss, diplopia, numbness, or weakness. She does report a sensation in her feet described as feeling like an extra skin, which has been present since undergoing chemotherapy 12 years ago. Montserrat recalls a past episode of dizziness when turning over or lying down, for which she sought emergency care. She was informed it might be due to dehydration or an issue with crystals in the head. She attended physical therapy and learned exercises to manage the dizziness, which has since improved. She currently exercises four times a week at the [facility]. 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: Right Family history Subarachnoid hemorrhage/aneurysm: Mother had a fatal SAH from aneurysm (age of 74) Stroke: denies Vascular malformations: Denies Other neurologic diseases: Denies + Cancer in the family REVIEW OF SYSTEMS Head: (-) headaches Eyes: (+) foreign body sensation in eyes, (+) visual disturbances, (-) vision loss, (-) diplopia Neurological: (+) bilateral foot paresthesia, (-) numbness, (-) weakness, (-) dizziness, (-) seizures ACTIVE PROBLEM LIST Acquired Hypothyroidism Mixed Hyperlipidemia Spinal stenosis, unspecified region other than cervical Rsd (Reflex Sympathetic Dystrophy) Mitral valve disorders(424.0) Neck Pain Neutropenia, drug-induced (HCC) Mild Persistent Asthma (Hcc) Plantar Fasciitis Sebaceous Cyst Ganglion and Cyst of Synovium, Tendon and Bursa Trigger Ring Finger of Right Hand Fatty Liver Metabolic Syndrome Gastroesophageal Reflux Disease Without Esophagitis Diverticulosis of Large Intestine Internal Hemorrhoids Without Mention of Complication History of Detached Retina Repair Cataracts, Bilateral Elevated Hemoglobin A1c Carcinoma of Female Breast, Right (Hcc) Right-Sided Chest Wall Pain Mass of Left Lower Leg Ex-Smoker History of Skin Cancer History of Colonic Polyps Vitamin D Deficiency Irritable Bowel Syndrome With Both Constipation and Diarrhea Bilateral Carotid Artery Stenosis Living Will in Place Advance Directive Discussed With Patient Medication Management Neural Foraminal Stenosis of Cervical Spine Acute Pain of Left Shoulder Tear of Left Glenoid Labrum Incomplete Tear of Left Rotator Cuff Labral Tear of Long Head of Left Biceps Tendon Over Weight Colon Cancer Screening Nonrheumatic Aortic Valve Stenosis Vertigo Skin Cancer Screening Family History of Brain Aneurysm Brain Aneurysm (Hcc) PAST MEDICAL HISTORY Diagnosis Date Acquired hypothyroidism 11/29/2005 Bilateral carotid artery stenosis 07/13/2021 US: 06/2021: Stephen 20-40% Brain aneurysm (HCC) 02/02/2025 MRI: 01/2025, consult to neurosurgery placed. Breast cancer (HCC) 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, right (HCC) 10/05/2017 Cataracts, bilateral 12/20/2016 Some relation to steroids with her asthma. Cervicalgia 01/27/2011 Class 1 obesity due to excess calories without serious comorbidity with body mass index (BMI) of 33.0 to 33.9 in adult 12/31/2017 Diverticulosis of large intestine Elevated hemoglobin A1c 09/10/2017 Ex-smoker Family history of brain aneurysm 12/31/2024 Mother who . 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 Incomplete tear of left rotator cuff 04/16/2023 Internal hemorrhoids without mention of complication Irritable bowel syndrome with both constipation and diarrhea 07/28/2020 Labral tear of long head of left biceps tendon 04/16/2023 Lichen sclerosus Living will in place 01/04/2022 DPA: Deshawn () Mass of left lower leg 07/03/2018 Benign w/u Metabolic syndrome 04/19/2016 Mild persistent asthma (HCC) 09/07/2011 Mitral valve disorders(424.0) Mixed hyperlipidemia 11/29/2005 Neural foraminal stenosis of cervical spine 03/21/2022 Mod-sever on the left Neutropenia, drug-induced 08/11/2011 Nonrheumatic aortic valve stenosis 06/13/2024 Seeing Cardio: Dr. Colon Obesity Osteopenia 12/22/2024 Right Hip Over weight 10/17/2023 Plantar fasciitis 11/24/2013 Primary insomnia 07/06/2021 Right-sided chest wall pain 10/05/2017 Secondary to breast cancer radiation. RSD (reflex sympathetic dystrophy) Sebaceous cyst 01/20/2014 Spinal stenosis, unspecified region other than cervical 03/02/2006 Tear of left glenoid labrum 04/16/2023 Trigger ring finger of right hand 06/23/2014 Vitamin D deficiency 09/15/2019 PAST SURGICAL HISTORY Procedure Laterality Date ADENOIDECTOMY PRIMARY <AGE 12 Adenoidectomy BREAST BIOPSY CORE 04/11/2011 right breast 2:00, 4:00 and 10:00 BREAST BIOPSY INCISIONAL 14 years ago right and left breast- benign BREAST RECONSTRUC W FREE FLAP 12/13/2012 bilateral breast BREAST RECONSTRUC W TISS EXPANDR 05/25/2011 right breast with elevation of the serratus flap CARDIAC CATH 03/20/2017 normal, by Dr. Colvin COLONOSCOPY 01/03/2024 repeat 3 years COLONOSCOPY FLX DX W/COLLJ SPEC WHEN PFRMD 04/08/2007 COLONOSCOPY FLX DX W/COLLJ SPEC WHEN PFRMD N/A 09/06/2016 MAC COLONOSCOPY FLX DX W/COLLJ SPEC WHEN PFRMD 02/10/2019 Colonoscopy INSJ TUNNELED CTR VAD W/SUBQ PORT AGE 5 YR/> 07/06/2011 left IJ MASTECTOMY, SIMPLE, COMPLETE 05/25/2011 right breast skin-sparing with SLND/level 1 LND MASTECTOMY, SIMPLE, COMPLETE 12/13/2012 prophylactic left breast PAST SURGICAL HISTORY OF squamous cell skin ca nose, lips, face PAST SURGICAL HISTORY OF 1972 removal of sweat glands (bilateral axilla (right x 2)and groin) PAST SURGICAL HISTORY OF 03/06/2016 removal of polyp at [facility] [employer] COVID-19 VACCINE, AGE 12+ YR (PURPLE TOP) 09/11/2020 first vaccine REM LESION TRUNK,ARM, LEG <0.5 CM 01/24/2014 Exc. deyanira cyst left inframammary REPAIR ROTATOR CUFF,ACUTE Left 07/02/2023 RMVL MOISES CTR VAD W/SUBQ PORT/BUHR MILL OPERATOR CTR/PRPH INSJ 01/18/2012 Removal left IJ port RPR COMPLEX RETINA DETACH VITRECT &MEMBRANE PEEL 09/2014 left retina SIGMOIDOSCOPY FLX DX W/COLLJ SPEC BR/WA IF PFRMD 01/27/2002 Sigmoidoscopy TONSILLECTOMY PRIMARY/SECONDARY <AGE 12 Tonsillectomy Allergies: Typhoid Vaccine, Adhesive Tape (Rosins), Cats, Diclofenac, Dogs, Dust, Meloxicam, Mold, and Tegretol [Carbamazepine Analogues] Medications: Current Outpatient Medications Medication Sig naproxen (NAPROSYN) 500 mg tablet Take 1 tablet by mouth two times a day as needed (for pain/inflammation). Take with food. metoprolol succinate ER (TOPROL XL) 25 mg 24 hr tablet Take 1 tablet by mouth once daily. pioglitazone (ACTOS) 30 mg tablet Take 1 tablet by mouth once daily. atorvastatin (LIPITOR) 80 mg tablet Take 1 tablet by mouth once daily. VENTOLIN HFA 90 mcg/actuation inhaler Inhale 2 puffs as instructed every 4 hours as needed. clobetasol (TEMOVATE) 0.05 % ointment Apply 1 application to affected area two times a day. levothyroxine (SYNTHROID) 100 mcg tablet Take 1 tablet by mouth daily before breakfast. amitriptyline (ELAVIL) 25 mg tablet Take 2 tablets by mouth daily at bedtime. acetaminophen (TYLENOL) 500 mg tablet Take 1,000 mg by mouth at bedtime as needed. COMPOUNDED PRESCRIPTION NEBULIZER and supplies FOR HOME USE. DX: J45.30, J45.90. Length of need is life. This is a medically necessary devise for management of patients lung disease. Current machine recently stopped working. While trying to use it started to smoke and stopped. No current facility-administered medications for this visit. SOCIAL HISTORY[1] Objective Patient Entered Questionnaires PROMIS/NeuroQoL Score Percentiles 09/04/2023 07/08/2023 03/13/2023 Physical Health Physical Function Percentile 4 7 18* 11/10/2021 PROMIS SOCIAL ROLE SCORE Social Role Satisfaction Percentile 82 06/13/2023 03/13/2023 11/10/2021 PROMIS Global Health Scale Physical Health Percentile 41 31 66 Mental Health Percentile 53 73 53 Percentiles provide an indication of how a patient's score ranks in relation to the [place] general population. > 31st percentile is within normal limits or better * < 31st percentile is at least SD worse than population, which may be clinically relevant < 16th percentile is at least 1 SD worse than population and warrants attention Depression Screenin10/29/2024 04/20/2022 11/15/2011 PHQ-9 Score 4 0 1 Self-Harm Response Several days Not at all Not at all Data saved with a previous flowsheet row definition PHQ-9 Scores: PHQ-9 Self-Harm (Item 9) Response: 0 - 9 No to Mild depression 0 - Not at all 10 - 14 Moderate depression 1 - Several Days > 15 Severe depression 2 - More than half the days 3 - Nearly every day 06/13/2023 Sleep Apnea Probability Score Probability (%) 35 (Sleep study not recommended) PHYSICAL EXAMINATION BP 130/71 Pulse 67 Ht 170.2 cm (5' 7) Wt 93.4 kg (206 lb) LMP 01/06/2009 BMI 32.26 kg/m General: Well-developed, well-nourished, in no acute distress. HEENT: Normocephalic, atraumatic. Sclerae anicteric. Lungs: Respirations even and unlabored, on room air. Extremities: No edema, cyanosis, or clubbing. Skin: No rash or ecchymoses. Neurological: Awake, alert, oriented to person, place, and time. Speech fluent, no dysarthria. Good attention and insight into illness. Cranial Nerves: Pupils equal, extraocular movements intact without nystagmus. Facial sensation and movements normal and symmetric. Tongue midline. Shoulder shrug symmetric. Motor: Normal bulk and tone. Strength 5/5 throughout. No pronator drift or tremor. Sensation: Grossly intact light touch. Coordination: Tmdiwy-lg-[id number] without dysmetria bilaterally. Gait: Ambulates easily into the office without assistance. Stroke Mechanism and Scales = 0 RESULTS 01/31/25 MRA: 1-2 millimeter saccular outpouching projecting laterally from the right cavernous ICA segment consistent with small extradural saccular aneurysm, unchanged. Infundibulum at the origin of the left posterior communicating arteries unchanged. No large arterial vessel occlusion, significant focal narrowing, or other aneurysm on intracranial MRA. 08/30/2021 CTA head/neck: Mild supratentorial microvascular ischemic changes. Otherwise normal brain. No evidence of an acute intracranial process. No significant stenosis in either carotid bifurcation by NASCET criteria. Patent cervical vertebral arteries. Mild stenosis in the proximal cervical right vertebral artery. Mild distal left vertebral artery stenosis. Otherwise no evidence of significant large vessel intracranial occlusive disease. 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 Discussed estimated low risk considering size, location, and evidence of stability. Family history is notable for maternal from a brain aneurysm at age 74. - Will review imaging with Dr. Moncada to confirm findings and determine if further angiography is warranted or if routine surveillance in 2 years is appropriate in setting of ongoing stability. - Advised patient to maintain goal BP <130/80 mmHg - No activity restrictions necessary; advised to avoid skydiving, deep scuba diving, and heavy lifting; patient already avoids lifting >10 lbs due to prior shoulder surgery. - Recommended screening for aneurysms in first-degree relatives (sister, son, daughter); provided a letter via [employer] with instructions for MRA or CTA screening. I spent a total of 40 minutes on the date of the service which included preparing to see the patient, [id number] patient care, completing clinical documentation, obtaining and/or reviewing separately obtained history, performing a medically appropriate examination, counseling and educating the patient/family/caregiver, communicating with other HCPs (not separately reported), independently interpreting results (not separately reported), communicating results to the patient/family/caregiver, and care coordination (not separately reported). Recording using [employer] software for draft documentation of the visit was discussed with the patient/authorized operations support representative; all questions welcomed and answered. Patient/authorized operations support representative agreed to proceed SIGNATURE Jessica Oneil APRN.INTEL RECRUITER 02/24/2025 CC Liam Wilkins [address] [place] [id number] Liam Wilkins [address] [place] [id number] [1] Social History Tobacco Use Smoking status: Former Current packs/day: 0.00 Average packs/day: 2.0 packs/day for 12.0 years (24.0 ttl pk-yrs) Types: Cigarettes Start date: 06/25/1969 Quit date: 06/25/1981 Years since quittin.7 Smokeless tobacco: Never Vaping Use Vaping status: Never Used Substance Use Topics Alcohol use: Yes Alcohol/week: 7.0 standard drinks of alcohol Types: 7 Glasses of wine per week Comment: wine with meals Drug use: No documented in this encounter [facility] 02-13-2025 Telephone encounter Note OSH imaging/records received from [facility]: February 13, 2025 - Imaging & Records available in Chart [facility] 02-13-2025 Miscellaneous Notes OSH imaging/records received from [facility]: February 13, 2025 - Imaging & Records available in Chart ENDOVASCULAR INTAKE Patient name: Montserrat Aguayo When was triage completed? February 13 What diagnosis are you looking to be seen for within our center? (ex: aneurysm, angioma, arteriovenous malformation, brain bleed or brain hemorrhage, cavernous malformation, carotid stenosis, fistula, Moy[place]oya, Vein of Fredy, IIH or pseudotumor, etc.) Brain Aneurysm Is there a specific provider who is requesting you see our center? (referring provider) Liam Wilkins MD Has your referring provider recommended a specific provider in our department? No Is this a second opinion? Have you been recommended for surgery or procedure for this condition? Not a second opinion. Not recommended for surgery/procedure. If yes, have you scheduled this procedure at another facility? If yes, when is the procedure scheduled? Where have you had any imaging for this diagnosis in the past year? These include images such as ultrasounds, MRIs, CTs, or angiograms of the head, brain, neck, carotids, or spine. [facility] Images in Chart Have you had any surgeries or procedures for this condition? No If yes, where was it done and when? Who performed the surgery or procedure? Does any of the following pertain to you? Family history of brain aneurysm? Yes, mother passed from a brain aneurysm. Polycystic kidney disease or other genetic kidney disease? Not applicable if chronic kidney disease. No Connective tissue disease such as fibromuscular dysplasia or Abhay-Danlos Syndrome? No Do you prefer in-person or virtual appointment? Out of state residents must be in [place] at the time of their virtual visit. In Person or Virtual Specific day of the week or time of day? Any Time Do you prefer to be notified of your appointment by phone or MyChart message? [phone] Phone Call Thank you for speaking with me today. Your information will now be forwarded to our endovascular advance practice provider team to review and provide scheduling recommendations. Please allow 3 business days to hear back from us. If you do not, feel free to call back [phone] for an update. documented in this encounter [facility] 02-13-2025 Telephone encounter Note ENDOVASCULAR INTAKE Patient name: Montserrat Aguayo When was triage completed? February 13 What diagnosis are you looking to be seen for within our center? (ex: aneurysm, angioma, arteriovenous malformation, brain bleed or brain hemorrhage, cavernous malformation, carotid stenosis, fistula, Moyamoya, Vein of Fredy, IIH or pseudotumor, etc.) Brain Aneurysm Is there a specific provider who is requesting you see our center? (referring provider) Liam Wilkins MD Has your referring provider recommended a specific provider in our department? No Is this a second opinion? Have you been recommended for surgery or procedure for this condition? Not a second opinion. Not recommended for surgery/procedure. If yes, have you scheduled this procedure at another facility? If yes, when is the procedure scheduled? Where have you had any imaging for this diagnosis in the past year? These include images such as ultrasounds, MRIs, CTs, or angiograms of the head, brain, neck, carotids, or spine. [facility] Images in Chart Have you had any surgeries or procedures for this condition? No If yes, where was it done and when? Who performed the surgery or procedure? Does any of the following pertain to you? Family history of brain aneurysm? Yes, mother passed from a brain aneurysm. Polycystic kidney disease or other genetic kidney disease? Not applicable if chronic kidney disease. No Connective tissue disease such as fibromuscular dysplasia or Abhay-Danlos Syndrome? No Do you prefer in-person or virtual appointment? Out of state residents must be in [place] at the time of their virtual visit. In Person or Virtual Specific day of the week or time of day? Any Time Do you prefer to be notified of your appointment by phone or Tripcoverhart message? [phone] Phone Call Thank you for speaking with me today. Your information will now be forwarded to our endovascular advance practice provider team to review and provide scheduling recommendations. Please allow 3 business days to hear back from us. If you do not, feel free to call back [phone] for an update. [facility] 02-10-2025 Telephone encounter Note Patient called wanting to schedule an appointment to see Dr Ivory, she has an aneurism. I asked Dr Ivory to review the chart, he states: No need to schedule she can be seen at the [facility] at [facility] or even in [place] we have a neurology clinic that can see her. I called Montserrat to let her know they should be contacting her to schedule. [facility] 02-10-2025 Miscellaneous Notes Patient called wanting to schedule an appointment to see Dr Ivory, she has an aneurism. I asked Dr Ivory to review the chart, he states: No need to schedule she can be seen at the [facility] at [facility] or even in [place] we have a neurology clinic that can see her. I called Montserrat to let her know they should be contacting her to schedule. documented in this encounter [facility] 02-03-2025 Telephone encounter Note Pt notified. She will call back to schedule appt with Neurosurgeon. Katia Bhatt MA [facility] 02-03-2025 Miscellaneous Notes Pt notified. She will call back to schedule appt with Neurosurgeon. Katia Bhatt MA Let patient know I will want her to see Neurosurgery for their input to if treatment is needed or just monitoring. Order placed. Patient calling she saw her results of the MRA Brain and shows an Aneurysm. Patient is asking what is she to do next? Please advise documented in this encounter [facility] 02-02-2025 Telephone encounter Note Let patient know I will want her to see Neurosurgery for their input to if treatment is needed or just monitoring. Order placed. [facility] 02-02-2025 Telephone encounter Note Patient calling she saw her results of the MRA Brain and shows an Aneurysm. Patient is asking what is she to do next? Please advise [facility] 01-31-2025 History of Present illness Narrative Radiology Service Progress Note DATE OF SERVICE: January 31, 2025 TIME: 11:05 AM PATIENT IDENTITY VERIFICATION COMPLETED USING TWO (2) STANDARD IDENTIFIERS: Name and Date of confirmed by patient verbally and Name and Date of confirmed by identification band. FALL SCREENING: Has the patient had 2 falls in the last year or 1 fall with injury or currently using an Ambulatory Assistive Device (Walker, Cane, Wheelchair, Crutches, etc.)? No PATIENT GENDER DATA: Assigned female at . status: : No status: NO. PATIENT RELEVANT IMPLANT DATA REVIEWED: Yes PATIENT PRESENTS WITH AN IMPLANTABLE OR ATTACHED UNIT SECRETARY: No ALLERGIES: Reviewed and unchanged CONTRAST ALLERGY: NO. EXAM: MRI - CONTRAST TYPE: GROUP II PERIPHERAL IV DATA: Ambulatory: A peripheral IV was started in the Left antecubital site with a Angio cath/Butterfly: 22 gauge. RADIOLOGY DEPARTMENT: MR; Exam(s) Completed: Head: [place] MRA. Aromatherapy Administered: No SIGNATURE: SOFIA Jones PATIENT NAME: Montserrat Augayo DATE: January 31, 2025 TIME: 11:05 AM documented in this encounter [facility] 01-31-2025 Note HNO ID: [id number] Author: JOJO MUELLER MRI Tech Service: Radiology Author Type: Country Director Type: Progress Notes Filed: 01/31/2025 11:10 Note Text: Radiology Service Progress Note DATE OF SERVICE: January 31, 2025 TIME: 11:05 AM PATIENT IDENTITY VERIFICATION COMPLETED USING TWO (2) STANDARD IDENTIFIERS: Name and Date of confirmed by patient verbally and Name and Date of confirmed by identification band. FALL SCREENING: Has the patient had 2 falls in the last year or 1 fall with injury or currently using an Ambulatory Assistive Device (Walker, Cane, Wheelchair, Crutches, etc.)? No PATIENT GENDER DATA: Assigned female at . status: : No status: NO. PATIENT RELEVANT IMPLANT DATA REVIEWED: Yes PATIENT PRESENTS WITH AN IMPLANTABLE OR ATTACHED UNIT SECRETARY: No ALLERGIES: Reviewed and unchanged CONTRAST ALLERGY: NO. EXAM: MRI - CONTRAST TYPE: GROUP II PERIPHERAL IV DATA: Ambulatory: A peripheral IV was started in the Left antecubital site with a Angio cath/Butterfly: 22 gauge. RADIOLOGY DEPARTMENT: MR; Exam(s) Completed: Head: [place] MRA. Aromatherapy Administered: No SIGNATURE: SOFIA Jones PATIENT NAME: Montserrat Aguayo DATE: January 31, 2025 TIME: 11:05 AM [facility] 01-21-2025 Telephone encounter Note The following approved medication requests have been transmitted electronically. Requested Prescriptions Signed Prescriptions Disp Refills naproxen (NAPROSYN) 500 mg tablet 30 tablet 0 Sig: Take 1 tablet by mouth two times a day as needed (for pain/inflammation). Take with food. Authorizing Provider: OBDULIA ROWLEY PA-C [facility] 01-21-2025 Miscellaneous Notes The following approved medication requests have been transmitted electronically. Requested Prescriptions Signed Prescriptions Disp Refills naproxen (NAPROSYN) 500 mg tablet 30 tablet 0 Sig: Take 1 tablet by mouth two times a day as needed (for pain/inflammation). Take with food. Authorizing Provider: OBDULIA ROWLEY PA-C Pt notified of Obdulia's message. She would like to try this. Please send to [facility]. Sabas Peacock LPN Noted. We could do some anti-inflammatory medications such as naproxen to see if that helps? Pt notified of results and instructions. Pt would like to try the surgical shoe. Pt currently wearing a mens size 11. Wants the larger size. Pt will crop picker out front. Shoe placed out fron for crop picker. Pt also advises that she has had RSD in the past and a injury makes this flare up. She is worried about this. Sabas Peacock LPN Let patient know that there are no fractures. We could put her in a surgical shoes if she would like to go that route. documented in this encounter [facility] 01-21-2025 Telephone encounter Note Pt notified of Obdulia's message. She would like to try this. Please send to [facility]. Sabas Peacock LPN [facility] 01-21-2025 Telephone encounter Note Noted. We could do some anti-inflammatory medications such as naproxen to see if that helps? [facility] 01-21-2025 Telephone encounter Note Pt notified of results and instructions. Pt would like to try the surgical shoe. Pt currently wearing a mens size 11. Wants the larger size. Pt will crop picker out front. Shoe placed out fron for crop picker. Pt also advises that she has had RSD in the past and a injury makes this flare up. She is worried about this. Sabas Peacock LPN [facility] 01-21-2025 Telephone encounter Note Let patient know that there are no fractures. We could put her in a surgical shoes if she would like to go that route. [facility] 01-21-2025 History of Present illness Narrative Radiology Service Progress Note PATIENT NAME: Montserrat Aguayo DATE OF SERVICE: January 21, 2025 TIME: 12:46 PM PATIENT IDENTITY VERIFICATION COMPLETED USING TWO (2) IDENTIFIERS: Name and Date of confirmed by patient verbally. FALL SCREENING: Has the patient had 2 falls in the last year or 1 fall with injury or currently using an Ambulatory Assistive Device (Walker, Cane, Wheelchair, Crutches, etc.)? No PATIENT GENDER DATA: Assigned female at . status: : No status: NO. PATIENT RELEVANT IMPLANT DATA REVIEWED: Yes PATIENT PRESENTS WITH AN IMPLANTABLE OR ATTACHED UNIT SECRETARY: No RADIOLOGY DEPARTMENT: General X-ray: Exam(s) Completed: Lower Extremity X-Ray(s): Foot, Left PERIPHERAL IV DATA: Not applicable SIGNED BY: DENISE Coburn) January 21, 2025 12:46 PM documented in this encounter [facility] 01-21-2025 Note HNO ID: [id number] Author: AVNI RICKS RT (R) Service: ? Author Type: Country Director Type: Progress Notes Filed: 01/21/2025 12:54 Note Text: Radiology Service Progress Note PATIENT NAME: Montserrat Aguayo DATE OF SERVICE: January 21, 2025 TIME: 12:46 PM PATIENT IDENTITY VERIFICATION COMPLETED USING TWO (2) IDENTIFIERS: Name and Date of confirmed by patient verbally. FALL SCREENING: Has the patient had 2 falls in the last year or 1 fall with injury or currently using an Ambulatory Assistive Device (Walker, Cane, Wheelchair, Crutches, etc.)? No PATIENT GENDER DATA: Assigned female at . status: : No status: NO. PATIENT RELEVANT IMPLANT DATA REVIEWED: Yes PATIENT PRESENTS WITH AN IMPLANTABLE OR ATTACHED UNIT SECRETARY: No RADIOLOGY DEPARTMENT: General X-ray: Exam(s) Completed: Lower Extremity X-Ray(s): Foot, Left PERIPHERAL IV DATA: Not applicable SIGNED BY: DENISE Coburn) January 21, 2025 12:46 PM [facility] 01-21-2025 Note HNO ID: [id number] Author: OBDULIA ROWLEY PA-C Service: ? Author Type: Physician Press Machine Feeder Type: Progress Notes Filed: 01/21/2025 14:05 Note Text: Chief Complaint Patient presents with: left foot pain: X 2 weeks HPI Montserrat Aguayo is a 75 year old female who presents here today for Above Complaints.. Left Foot Pain: - Left foot pain x2 weeks following a fall. - Incident occurred when stepping on a walnut under a leaf, causing the right foot to roll and resulting in a fall onto the left side. - Pain localized to the arch and top of the foot. - Severe pain last night, causing difficulty sleeping. - No noticeable bruising on the foot. - Denies decreased sensation in the toes. - History of neuropathy following chemotherapy and radiation. - Previous fall 8 years ago also involved stepping on a walnut, resulting in a foot fracture and requiring a full leg boot. Weight Gain: - Weight increased from 190 lbs last year to 206 lbs currently. - Denies changes in diet or alcohol consumption. - Unable to exercise due to foot pain; previously walked a mile a day and worked out daily. - Recent labs were normal. Past medical history, appointments, medications, allergies reviewed. Previous Medical History PAST MEDICAL HISTORY Diagnosis Date Acquired hypothyroidism 11/29/2005 Bilateral carotid artery stenosis 07/13/2021 US: 06/2021: [place] 20-40% Breast cancer (HCC) 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, right (HCC) 10/05/2017 Cataracts, bilateral 12/20/2016 Some relation to steroids with her asthma. Cervicalgia 01/27/2011 Class 1 obesity due to excess calories without serious comorbidity with body mass index (BMI) of 33.0 to 33.9 in adult 12/31/2017 Diverticulosis of large intestine Elevated hemoglobin A1c 09/10/2017 Ex-smoker Family history of brain aneurysm 12/31/2024 Mother who . 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 Incomplete tear of left rotator cuff 04/16/2023 Internal hemorrhoids without mention of complication Irritable bowel syndrome with both constipation and diarrhea 07/28/2020 Labral tear of long head of left biceps tendon 04/16/2023 Lichen sclerosus Living will in place 01/04/2022 DPA: Deshawn () Mass of left lower leg 07/03/2018 Benign w/u Metabolic syndrome 04/19/2016 Mild persistent asthma (HCC) 09/07/2011 Mitral valve disorders(424.0) Mixed hyperlipidemia 11/29/2005 Neural foraminal stenosis of cervical spine 03/21/2022 Mod-sever on the left Neutropenia, drug-induced 08/11/2011 Nonrheumatic aortic valve stenosis 06/13/2024 Seeing Cardio: Dr. Colon Obesity Osteopenia 12/22/2024 Right Hip Over weight 10/17/2023 Plantar fasciitis 11/24/2013 Primary insomnia 07/06/2021 Right-sided chest wall pain 10/05/2017 Secondary to breast cancer radiation. RSD (reflex sympathetic dystrophy) Sebaceous cyst 01/20/2014 Spinal stenosis, unspecified region other than cervical 03/02/2006 Tear of left glenoid labrum 04/16/2023 Trigger ring finger of right hand 06/23/2014 Vitamin D deficiency 09/15/2019 Previous Surgical History PAST SURGICAL HISTORY Procedure Laterality Date ADENOIDECTOMY PRIMARY Adenoidectomy BREAST BIOPSY CORE 04/11/2011 right breast 2:00, 4:00 and 10:00 BREAST BIOPSY INCISIONAL 14 years ago right and left breast- benign BREAST RECONSTRUC W FREE FLAP 12/13/2012 bilateral breast BREAST RECONSTRUC W TISS EXPANDR 05/25/2011 right breast with elevation of the serratus flap CARDIAC CATH 03/20/2017 normal, by Dr. Colvin COLONOSCOPY 01/03/2024 repeat 3 years COLONOSCOPY FLX DX W/COLLJ SPEC WHEN PFRMD 04/08/2007 COLONOSCOPY FLX DX W/COLLJ SPEC WHEN PFRMD N/A 09/06/2016 MAC COLONOSCOPY FLX DX W/COLLJ SPEC WHEN PFRMD 02/10/2019 Colonoscopy INSJ TUNNELED CTR VAD W/SUBQ PORT AGE 5 YR/> 07/06/2011 left IJ MASTECTOMY, SIMPLE, COMPLETE 05/25/2011 right breast skin-sparing with SLND/level 1 LND MASTECTOMY, SIMPLE, COMPLETE 12/13/2012 prophylactic left breast PAST SURGICAL HISTORY OF squamous cell skin ca nose, lips, face PAST SURGICAL HISTORY OF 1972 removal of sweat glands (bilateral axilla (right x 2)and groin) PAST SURGICAL HISTORY OF 03/06/2016 removal of polyp at [facility] [employer] COVID-19 VACCINE, AGE 12+ YR (PURPLE TOP) 09/11/2020 first vaccine REM LESION TRUNK,ARM, LEG <0.5 CM 01/24/2014 Exc. deyanira cyst left inframammary REPAIR ROTATOR CUFF,ACUTE Left 07/02/2023 RMVL [place]IS[place] CTR VAD W/SUBQ PORT/BUHR MILL OPERATOR CTR/PRPH INSJ 01/18/2012 Removal left IJ port RPR COMPLEX RETINA DETACH VITRECT ANDMEMBRANE PEEL 09/2014 left retina SIGMOIDOSCOPY FLX DX W/COLLJ SPEC BR/WA IF PFRMD 01/27/2002 (more content not included)... [facility] 01-21-2025 History of Present illness Narrative Chief Complaint Patient presents with: left foot pain: X 2 weeks HPI Montserrat Aguayo is a 75 year old female who presents here today for Above Complaints.. Left Foot Pain: - Left foot pain x2 weeks following a fall. - Incident occurred when stepping on a walnut under a leaf, causing the right foot to roll and resulting in a fall onto the left side. - Pain localized to the arch and top of the foot. - Severe pain last night, causing difficulty sleeping. - No noticeable bruising on the foot. - Denies decreased sensation in the toes. - History of neuropathy following chemotherapy and radiation. - Previous fall 8 years ago also involved stepping on a walnut, resulting in a foot fracture and requiring a full leg boot. Weight Gain: - Weight increased from 190 lbs last year to 206 lbs currently. - Denies changes in diet or alcohol consumption. - Unable to exercise due to foot pain; previously walked a mile a day and worked out daily. - Recent labs were normal. Past medical history, appointments, medications, allergies reviewed. Previous Medical History PAST MEDICAL HISTORY Diagnosis Date Acquired hypothyroidism 11/29/2005 Bilateral carotid artery stenosis 07/13/2021 US: 06/2021: Stephen 20-40% Breast cancer (HCC) 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, right (HCC) 10/05/2017 Cataracts, bilateral 12/20/2016 Some relation to steroids with her asthma. Cervicalgia 01/27/2011 Class 1 obesity due to excess calories without serious comorbidity with body mass index (BMI) of 33.0 to 33.9 in adult 12/31/2017 Diverticulosis of large intestine Elevated hemoglobin A1c 09/10/2017 Ex-smoker Family history of brain aneurysm 12/31/2024 Mother who . 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 Incomplete tear of left rotator cuff 04/16/2023 Internal hemorrhoids without mention of complication Irritable bowel syndrome with both constipation and diarrhea 07/28/2020 Labral tear of long head of left biceps tendon 04/16/2023 Lichen sclerosus Living will in place 01/04/2022 DPA: Deshawn () Mass of left lower leg 07/03/2018 Benign w/u Metabolic syndrome 04/19/2016 Mild persistent asthma (HCC) 09/07/2011 Mitral valve disorders(424.0) Mixed hyperlipidemia 11/29/2005 Neural foraminal stenosis of cervical spine 03/21/2022 Mod-sever on the left Neutropenia, drug-induced 08/11/2011 Nonrheumatic aortic valve stenosis 06/13/2024 Seeing Cardio: Dr. Colon Obesity Osteopenia 12/22/2024 Right Hip Over weight 10/17/2023 Plantar fasciitis 11/24/2013 Primary insomnia 07/06/2021 Right-sided chest wall pain 10/05/2017 Secondary to breast cancer radiation. RSD (reflex sympathetic dystrophy) Sebaceous cyst 01/20/2014 Spinal stenosis, unspecified region other than cervical 03/02/2006 Tear of left glenoid labrum 04/16/2023 Trigger ring finger of right hand 06/23/2014 Vitamin D deficiency 09/15/2019 Previous Surgical History PAST SURGICAL HISTORY Procedure Laterality Date ADENOIDECTOMY PRIMARY <AGE 14 Adenoidectomy BREAST BIOPSY CORE 04/11/2011 right breast 2:00, 4:00 and 10:00 BREAST BIOPSY INCISIONAL 14 years ago right and left breast- benign BREAST RECONSTRUC W FREE FLAP 12/13/2012 bilateral breast BREAST RECONSTRUC W TISS EXPANDR 05/25/2011 right breast with elevation of the serratus flap CARDIAC CATH 03/20/2017 normal, by Dr. Colvin COLONOSCOPY 01/03/2024 repeat 3 years COLONOSCOPY FLX DX W/COLLJ SPEC WHEN PFRMD 04/08/2007 COLONOSCOPY FLX DX W/COLLJ SPEC WHEN PFRMD N/A 09/06/2016 MAC COLONOSCOPY FLX DX W/COLLJ SPEC WHEN PFRMD 02/10/2019 Colonoscopy INSJ TUNNELED CTR VAD W/SUBQ PORT AGE 5 YR/> 07/06/2011 left IJ MASTECTOMY, SIMPLE, COMPLETE 05/25/2011 right breast skin-sparing with SLND/level 1 LND MASTECTOMY, SIMPLE, COMPLETE 12/13/2012 prophylactic left breast PAST SURGICAL HISTORY OF squamous cell skin ca nose, lips, face PAST SURGICAL HISTORY OF 1972 removal of sweat glands (bilateral axilla (right x 2)and groin) PAST SURGICAL HISTORY OF 03/06/2016 removal of polyp at [facility] COVID-19 VACCINE, AGE 12+ YR (PURPLE TOP) 09/11/2020 first vaccine REM LESION TRUNK,ARM, LEG <0.5 CM 01/24/2014 Exc. deyanira cyst left inframammary REPAIR ROTATOR CUFF,ACUTE Left 07/02/2023 RMVL MOISES CTR VAD W/SUBQ PORT/BUHR MILL OPERATOR CTR/PRPH INSJ 01/18/2012 Removal left IJ port RPR COMPLEX RETINA DETACH VITRECT &MEMBRANE PEEL 09/2014 left retina SIGMOIDOSCOPY FLX DX W/COLLJ SPEC BR/WA IF PFRMD 01/27/2002 Sigmoidoscopy TONSILLECTOMY PRIMARY/SECONDARY <AGE 14 Tonsillectomy Family History FAMILY HISTORY Problem Relation Age of Onset Breast Cancer Mother dx in her 50's other (uterine cancer) Mother dx before breast cancer Aneurysm Mother Brain Heart Father MT, valve disorder Headache Sister other (other cances) Sister no known family h/o: ovarian; prostate, colon, pancreatic, lung, thyroid, brain, melenoma, leukemia, sarcomas No Known Problems Maternal Grandmother Heart Attack Maternal Grandfather other (rectal cancer) Paternal Grandmother 95 Colon Cancer Paternal Grandmother No Known Problems Paternal Grandfather No Known Problems Daughter Heart Son Breast Cancer Maternal Aunt 1) details unknown Breast Cancer Maternal Aunt 2) details unknown Patient Allergies ALLERGIES Allergen Reactions Typhoid Vaccine Intolerance Adhesive Tape (Haley* Other: See Comments after 2 days area becomes red and itches Cats Intolerance Diclofenac Other: See Comments elevated liver enz Dogs Intolerance Dust Intolerance Meloxicam Other: See Comments Swollen eyelids Mold Intolerance Tegretol [Carbamaze* Intolerance blood problem Current Medications Current Outpatient Medications on File Prior to Visit Medication Sig metoprolol succinate ER (TOPROL XL) 25 mg 24 hr tablet Take 1 tablet by mouth once daily. pioglitazone (ACTOS) 30 mg tablet Take 1 tablet by mouth once daily. atorvastatin (LIPITOR) 80 mg tablet Take 1 tablet by mouth once daily. VENTOLIN HFA 90 mcg/actuation inhaler Inhale 2 puffs as instructed every 4 hours as needed. clobetasol (TEMOVATE) 0.05 % ointment Apply 1 application to affected area two times a day. levothyroxine (SYNTHROID) 100 mcg tablet Take 1 tablet by mouth daily before breakfast. amitriptyline (ELAVIL) 25 mg tablet Take 2 tablets by mouth daily at bedtime. acetaminophen (TYLENOL) 500 mg tablet Take 1,000 mg by mouth at bedtime as needed. erythromycin (ROMYCIN) 5 mg/gram (0.5 %) ophthalmic ointment Use 1 application in both eyes two times a day. (Patient not taking: Reported on 01/21/2025) COMPOUNDED PRESCRIPTION NEBULIZER and supplies FOR HOME USE. DX: J45.30, J45.90. Length of need is life. This is a medically necessary devise for management of patients lung disease. Current machine recently stopped working. While trying to use it started to smoke and stopped. No current facility-administered medications on file prior to visit. Social History Social History Tobacco Use Smoking status: Former Current packs/day: 0.00 Average packs/day: 2.0 packs/day for 12.0 years (24.0 ttl pk-yrs) Types: Cigarettes Start date: 06/25/1969 Quit date: 06/25/1981 Years since quittin.6 Smokeless tobacco: Never Vaping Use Vaping status: Never Used Substance Use Topics Alcohol use: Yes Alcohol/week: 7.0 standard drinks of alcohol Types: 7 Glasses of wine per week Comment: wine with meals Drug use: No Review of Symptoms REVIEW OF SYSTEMS SEE HPI EXAM: BP 110/78 (BP Site: Left Arm, BP Position: Sitting, BP Cuff Size: Large Adult) Pulse 81 Temp 36.1 C (97 F) Resp 18 Wt 93.4 kg (206 lb) LMP 01/06/2009 SpO2 98% BMI 31.33 kg/m General Appearance: Well appearing, alert, in no acute distress, well-hydrated, well nourished.. Musculoskeletal: +pain to palp throughout forefoot. No bruising or swelling noted. ROM intact with discomfort. . Health Maintenance List Influenza Vaccine(1) due on 02/23/2025 Depression Screening due on 10/29/2025 Anxiety Screening due on 10/29/2025 Annual PCP Team Chronic Disease Visit due on 01/21/2026 Colorectal Cancer Screening due on 01/02/2027 Diabetes Screening due on 10/28/2027 Lipid Screening due on 10/27/2029 DTaP,Tdap,Td Vaccine(4 - Td or Tdap) due on 06/10/2030 Bone Density Screening Completed Advance Directive Discussion Completed RSV Vaccine Completed Hepatitis C Screening Completed Shingrix Vaccine Completed Pneumococcal Vaccine: 50+ Completed Mammogram Screening Discontinued Cervical Cancer Screening Discontinued Data reviewed Xray self read: Neg for fracture. Radiology read: IMPRESSION: No acute fracture seen in the left foot. Degenerative changes in the first metatarsophalangeal joint. Assessment and Plan 1. Foot pain, left (M79.672) 2. Fall, initial encounter (W19.XXXA) - Acute left foot pain and swelling following a fall two weeks ago; pain localized to the arch and dorsum of the foot, with significant tenderness on palpation. - No clear history of ecchymosis; no new numbness reported, though baseline paresthesia present from prior chemotherapy and radiation. - Order X-ray of the left foot to evaluate for possible fracture. - Xray negative for fracture, will offer patient a surgical shoe for comfort. Obdulia Rowley PA-C Recording using [employer] software for draft documentation of the visit was discussed with the patient/authorized operations support representative; all questions welcomed and answered. Patient/authorized operations support representative agreed to proceed documented in this encounter [facility] 01-21-2025 Telephone encounter Note Patient calls for foot pain. Nurse triage completed. Protocol recommends see provider within 24 hours. Same-day appt scheduled. Care advice reviewed with verbalized understanding. Reason for Disposition [1] MODERATE pain (e.g., interferes with normal activities, limping) AND [2] high-risk adult (e.g., age > 60 years, osteoporosis, chronic steroid use) Answer Assessment - Initial Assessment Questions 1. MECHANISM: Patient reports that on 01/06 she had fallen. At the time she noticed maybe a little pain but as time has passed and she has ambulated on the foot the pain has become worse. She reports that at rest it is minimal and if she ices it the pain is relieved but when she is up walking on it she would rate it a 7/10. 2. ONSET: 01/06 3. LOCATION: Foot 4. APPEARANCE of INJURY: Patient reports that she might notice a little swelling to the top of her foot. 5. WEIGHT-BEARING: Patient is able to bear weight and walk. 6. SIZE: NA 7. PAIN: - MILD (1-3): Doesn't interfere with normal activities. TO - MODERATE (4-7): Interferes with normal activities (e.g., work or school), awakens from sleep, limping. 8. TETANUS: NA 9. OTHER SYMPTOMS: No Protocols used: Foot [id number] [facility] 01-21-2025 Miscellaneous Notes Patient calls for foot pain. Nurse triage completed. Protocol recommends see provider within 24 hours. Same-day appt scheduled. Care advice reviewed with verbalized understanding. Reason for Disposition [1] MODERATE pain (e.g., interferes with normal activities, limping) AND [2] high-risk adult (e.g., age > 60 years, osteoporosis, chronic steroid use) Answer Assessment - Initial Assessment Questions 1. MECHANISM: Patient reports that on 01/06 she had fallen. At the time she noticed maybe a little pain but as time has passed and she has ambulated on the foot the pain has become worse. She reports that at rest it is minimal and if she ices it the pain is relieved but when she is up walking on it she would rate it a 7/10. 2. ONSET: 01/06 3. LOCATION: Foot 4. APPEARANCE of INJURY: Patient reports that she might notice a little swelling to the top of her foot. 5. WEIGHT-BEARING: Patient is able to bear weight and walk. 6. SIZE: NA 7. PAIN: - MILD (1-3): Doesn't interfere with normal activities. TO - MODERATE (4-7): Interferes with normal activities (e.g., work or school), awakens from sleep, limping. 8. TETANUS: NA 9. OTHER SYMPTOMS: No Protocols used: Foot [id number] documented in this encounter [facility] 01-02-2025 Note HNO ID: [id number] Author: KAM TAY MD Service: ? Author Type: Physician Type: Progress Notes Filed: 01/02/2025 22:49 Note Text: The patient presents for requested ultrasound. Full report available in the Imaging tab in [employer]. Kam Tay MD [facility] 01-02-2025 History of Present illness Narrative The patient presents for requested ultrasound. Full report available in the Imaging tab in [employer]. Kam Tay MD documented in this encounter [facility] 01-01-2025 Telephone encounter Note Please contact pt to set up MRA. Katia Bhatt MA [facility] 01-01-2025 Miscellaneous Notes Please contact pt to set up MRA. Katia Bhatt MA Patient contacted and informed of CT findings of a periorbital cellulitis and antibiotic being sent in. She was also informed o a possible aneurysm and need for a MRA of the brain. Order placed and needs scheduled. Per patient her mother from a brain aneurysm. documented in this encounter [facility] 01-01-2025 History of Present illness Narrative Radiology Service Progress Note PATIENT NAME: Montserrat Aguayo DATE OF SERVICE: January 01, 2025 TIME: 9:58 AM PATIENT IDENTITY VERIFICATION COMPLETED USING TWO (2) IDENTIFIERS: Name and Date of confirmed by patient verbally. FALL SCREENING: Has the patient had 2 falls in the last year or 1 fall with injury or currently using an Ambulatory Assistive Device (Walker, Cane, Wheelchair, Crutches, etc.)? No PATIENT GENDER DATA: Assigned female at . status: : No status: NO. PATIENT RELEVANT IMPLANT DATA REVIEWED: Not Applicable PATIENT PRESENTS WITH AN IMPLANTABLE OR ATTACHED UNIT SECRETARY: No RADIOLOGY DEPARTMENT: Mammography PERIPHERAL IV DATA: Not applicable SIGNED BY: Romina Barriga January 01, 2025 9:58 AM documented in this encounter [facility] 01-01-2025 Note HNO ID: [id number] Author: HAYLIE SIERRA Mammo Tech Service: ? Author Type: Country Director Type: Progress Notes Filed: 01/01/2025 09:58 Note Text: Radiology Service Progress Note PATIENT NAME: Montserrat Aguayo DATE OF SERVICE: January 01, 2025 TIME: 9:58 AM PATIENT IDENTITY VERIFICATION COMPLETED USING TWO (2) IDENTIFIERS: Name and Date of confirmed by patient verbally. FALL SCREENING: Has the patient had 2 falls in the last year or 1 fall with injury or currently using an Ambulatory Assistive Device (Walker, Cane, Wheelchair, Crutches, etc.)? No PATIENT GENDER DATA: Assigned female at . status: : No status: NO. PATIENT RELEVANT IMPLANT DATA REVIEWED: Not Applicable PATIENT PRESENTS WITH AN IMPLANTABLE OR ATTACHED UNIT SECRETARY: No RADIOLOGY DEPARTMENT: Mammography PERIPHERAL IV DATA: Not applicable SIGNED BY: Romina Barriga January 01, 2025 9:58 AM [facility] 12-31-2024 Telephone encounter Note Patient contacted and informed of CT findings of a periorbital cellulitis and antibiotic being sent in. She was also informed o a possible aneurysm and need for a MRA of the brain. Order placed and needs scheduled. Per patient her mother from a brain aneurysm. [facility] 12-31-2024 History of Present illness Narrative Radiology Service Progress Note DATE OF SERVICE: December 31, 2024 TIME: 5:10 PM PATIENT IDENTITY VERIFICATION COMPLETED USING TWO (2) STANDARD IDENTIFIERS: Name and Date of confirmed by patient verbally. FALL SCREENING: Has the patient had 2 falls in the last year or 1 fall with injury or currently using an Ambulatory Assistive Device (Walker, Cane, Wheelchair, Crutches, etc.)? No PATIENT GENDER DATA: Assigned female at . status: : No status: NO. PATIENT RELEVANT IMPLANT DATA REVIEWED: Yes PATIENT PRESENTS WITH AN IMPLANTABLE OR ATTACHED UNIT SECRETARY: No ALLERGIES: Reviewed and unchanged CONTRAST ALLERGY: NO. EXAM: CT -CONTRAST INDUCED NEPHROPATHY RISK FACTORS: Patient age > 60 years CREATININE: Creatinine Date Value Ref Range Status 12/31/2024 0.81 0.58 - 0.96 mg/dL Final 10/27/2024 0.80 0.58 - 0.96 mg/dL Final 01/10/2024 0.82 0.58 - 0.96 mg/dL Final Estimated Glomerular Filtration Rate Date Value Ref Range Status 12/31/2024 77 >=60 mL/min/1.73m Final Comment: Estimated Glomerular Filtration Rate (eGFR) is calculated using the 2020 CKD-EPI creatinine equation. This equation utilizes serum creatinine, sex, and age as parameters. The creatinine assay has traceable calibration to isotope dilution-mass spectrometry. Refer to KDIGO guidelines for clinical interpretation. In patients with unstable renal function, e.g. those with acute kidney injury, the eGFR may not accurately reflect actual GFR. eGFR- Date Value Ref Range Status 07/04/2021 >60 Final P.O.C.T. RESULTS: POC done: Yes, See Lab Tab December 31, 2024 TREATMENT: N/A PERIPHERAL IV DATA: Ambulatory: A peripheral IV was started in the Left antecubital site with a Angio cath: 20 gauge. RADIOLOGY DEPARTMENT: CT; Exam(s) Completed: Orbits SIGNATURE: RT Juliano(Rod) PATIENT NAME: Montserrat Aguayo DATE: December 31, 2024 TIME: 5:10 PM documented in this encounter [facility] 12-31-2024 Note HNO ID: [id number] Author: JANE BACK RT(Rod) Service: Radiology Author Type: Country Director Type: Progress Notes Filed: 12/31/2024 17:10 Note Text: Radiology Service Progress Note DATE OF SERVICE: December 31, 2024 TIME: 5:10 PM PATIENT IDENTITY VERIFICATION COMPLETED USING TWO (2) STANDARD IDENTIFIERS: Name and Date of confirmed by patient verbally. FALL SCREENING: Has the patient had 2 falls in the last year or 1 fall with injury or currently using an Ambulatory Assistive Device (Walker, Cane, Wheelchair, Crutches, etc.)? No PATIENT GENDER DATA: Assigned female at . status: : No status: NO. PATIENT RELEVANT IMPLANT DATA REVIEWED: Yes PATIENT PRESENTS WITH AN IMPLANTABLE OR ATTACHED UNIT SECRETARY: No ALLERGIES: Reviewed and unchanged CONTRAST ALLERGY: NO. EXAM: CT -CONTRAST INDUCED NEPHROPATHY RISK FACTORS: Patient age > 60 years CREATININE: Creatinine Date Value Ref Range Status 12/31/2024 0.81 0.58 - 0.96 mg/dL Final 10/27/2024 0.80 0.58 - 0.96 mg/dL Final 01/10/2024 0.82 0.58 - 0.96 mg/dL Final Estimated Glomerular Filtration Rate Date Value Ref Range Status 12/31/2024 77 >=60 mL/min/1.73m? Final Comment: Estimated Glomerular Filtration Rate (eGFR) is calculated using the 2020 CKD-EPI creatinine equation. This equation utilizes serum creatinine, sex, and age as parameters. The creatinine assay has traceable calibration to isotope dilution-mass spectrometry. Refer to KDIGO guidelines for clinical interpretation. In patients with unstable renal function, e.g. those with acute kidney injury, the eGFR may not accurately reflect actual GFR. eGFR- Date Value Ref Range Status 07/04/2021 >60 Final P.O.C.T. RESULTS: POC done: Yes, See Lab Tab December 31, 2024 TREATMENT: N/A PERIPHERAL IV DATA: Ambulatory: A peripheral IV was started in the Left antecubital site with a Angio cath: 20 gauge. RADIOLOGY DEPARTMENT: CT; Exam(s) Completed: Orbits SIGNATURE: RT Juliano(R) PATIENT NAME: Montserrat Aguayo DATE: December 31, 2024 TIME: 5:10 PM [facility] 07-09-2025 Instructions Liam Wilkins MD - 12/31/2024 2:42 PM EDT We discussed your right eye pain: - You were evaluated by ophthalmology yesterday, and no abrasions or foreign objects were found in your eye. They started you on an ointment as a precaution. - Today, you reported pain in and behind your right eye, especially when blinking or looking down. You also noted that closing your eye increases the pressure and discomfort. - I performed an exam, including a fluorescein stain test, which did not reveal any abnormalities. - To further evaluate the cause of your symptoms, I am ordering a stat orbital CT scan to check for any issues behind the eye, such as orbital cellulitis. The goal is to have this completed today. If we cannot perform the scan here, we will coordinate with [facility]. - Please monitor your symptoms closely. If you develop redness, swelling, fever, or worsening pain, seek immediate medical attention. We discussed your ear: - You mentioned a slight ache in your ear. Upon examination, your ear canal, eardrum, and the area behind the eardrum appeared normal with no redness or signs of infection. Next steps: - Complete the orbital CT scan as soon as possible. We will contact you with the results and discuss the next steps based on the findings. - If your symptoms worsen or you have any new concerns, please call our office. documented in this encounter [facility] 12-31-2024 Note HNO ID: [id number] Author: LIAM WILKINS MD Service: ? Author Type: Physician Type: Progress Notes Filed: 12/31/2024 22:08 Note Text: Chief Complaint Patient presents with: Eye Pain HPI Montserrat Aguayo is a 74 year old female who presents here today for right eye pain. Pt called into the office today and spoke with Triage Nurse regarding her symptoms. Pt woke up Sunday morning with right eye pain, soreness, and discomfort behind her eye. Denies any injury or redness to the eye. She did see an Eye Provider on 12/30/24 who examined her eye and stated overall her eye exam was good, no injury in eye, nothing in her eye, and her pressures were good. She was given a prescription for an antibiotic cream to apply twice a day both eyes, due to possible infection. Has applied one application last night and this morning. She was advised if she started getting a MASTERS to contact her PCP's office. This morning she woke up with MASTERS symptoms. Reports aching pain right around her right eye area. Pain described as aching. Montserrat Aguayo is a 74-year-old female presenting with right eye pain. Montserrat reports right eye pain that began yesterday and was evaluated by ophthalmology. The cork tipper performed a comprehensive examination, including fluorescein staining and eversion of the eyelid, and prescribed an ointment. No abrasions or foreign bodies were identified, and the internal structures of the eye appeared normal. Despite this, Montserrat continues to experience pain when blinking, which is localized to the eye, behind the eye, and on the surrounding bone. She also reports discomfort when closing her eyes and significant pain when looking down. Eye movement is mildly painful, but she denies any changes in vision. She denies any history of facial trauma, fever, or chills. She does not wear contact lenses but uses [id number] glasses for reading and computer use. Past medical history, appointments, medications, allergies reviewed. Previous Medical History PAST MEDICAL HISTORY Diagnosis Date Acquired hypothyroidism 11/29/2005 Bilateral carotid artery stenosis 07/13/2021 US: 06/2021: Stephen 20-40% Breast cancer (HCC) 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, right (HCC) 10/05/2017 Cataracts, bilateral 12/20/2016 Some relation to steroids with her asthma. 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 Incomplete tear of left rotator cuff 04/16/2023 Internal hemorrhoids without mention of complication Irritable bowel syndrome with both constipation and diarrhea 07/28/2020 Labral tear of long head of left biceps tendon 04/16/2023 Lichen sclerosus Living will in place 01/04/2022 DPA: Deshawn () Mass of left lower leg 07/03/2018 Benign w/u Metabolic syndrome 04/19/2016 Mild persistent asthma (HCC) 09/07/2011 Mitral valve disorders(424.0) Mixed hyperlipidemia 11/29/2005 Neural foraminal stenosis of cervical spine 03/21/2022 Mod-sever on the left Neutropenia, drug-induced 08/11/2011 Nonrheumatic aortic valve stenosis 06/13/2024 Seeing Cardio: Dr. Colon Obesity Osteopenia 12/22/2024 Right Hip Over weight 10/17/2023 Plantar fasciitis 11/24/2013 Primary insomnia 07/06/2021 Right-sided chest wall pain 10/05/2017 Secondary to breast cancer radiation. RSD (reflex sympathetic dystrophy) Sebaceous cyst 01/20/2014 Spinal stenosis, unspecified region other than cervical 03/02/2006 Tear of left glenoid labrum 04/16/2023 Trigger ring finger of right hand 06/23/2014 Vitamin D deficiency 09/15/2019 Previous Surgical History PAST SURGICAL HISTORY Procedure Laterality Date ADENOIDECTOMY PRIMARY Adenoidectomy BREAST BIOPSY CORE 04/11/2011 right breast 2:00, 4:00 and 10:00 BREAST BIOPSY INCISIONAL 14 years ago right and left breast- benign BREAST RECONSTRUC W FREE FLAP 12/13/2012 bilateral breast BREAST RECONSTRUC W TISS EXPANDR 05/25/2011 right breast with elevation of the serratus flap CARDIAC CATH 03/20/2017 normal, by Dr. Colvin COLONOSCOPY 01/03/2024 repeat 3 years COLONOSCOPY FLX DX W/COLLJ SPEC WHEN PFRMD 04/08/2007 COLONOSCOPY FLX DX W/COLLJ SPEC WHEN PFRMD N/A 09/06/2016 MAC COLONOSCOPY FLX DX W/COLLJ SPEC WHEN PFRMD 02/10/2019 Colonoscopy INSJ TUNNELED CTR VAD W/SUBQ PORT AGE 5 YR/> 07/06/2011 left IJ MASTECTOMY, SIMPLE, COMPLETE 05/25/2011 right breast skin-sparing with SLND/level 1 LND MASTECTOMY, SIMPLE, COMPLET (more content not included)... [facility] 07-09-2025 History of Present illness Narrative Chief Complaint Patient presents with: Eye Pain HPI Montserrat Aguayo is a 74 year old female who presents here today for right eye pain. Pt called into the office today and spoke with Triage Nurse regarding her symptoms. Pt woke up Sunday morning with right eye pain, soreness, and discomfort behind her eye. Denies any injury or redness to the eye. She did see an Eye Provider on 12/30/24 who examined her eye and stated overall her eye exam was good, no injury in eye, nothing in her eye, and her pressures were good. She was given a prescription for an antibiotic cream to apply twice a day both eyes, due to possible infection. Has applied one application last night and this morning. She was advised if she started getting a MASTERS to contact her PCP's office. This morning she woke up with MASTERS symptoms. Reports aching pain right around her right eye area. Pain described as aching. Montserrat Aguayo is a 74-year-old female presenting with right eye pain. Montserrat reports right eye pain that began yesterday and was evaluated by ophthalmology. The cork tipper performed a comprehensive examination, including fluorescein staining and eversion of the eyelid, and prescribed an ointment. No abrasions or foreign bodies were identified, and the internal structures of the eye appeared normal. Despite this, Montserrat continues to experience pain when blinking, which is localized to the eye, behind the eye, and on the surrounding bone. She also reports discomfort when closing her eyes and significant pain when looking down. Eye movement is mildly painful, but she denies any changes in vision. She denies any history of facial trauma, fever, or chills. She does not wear contact lenses but uses [id number] glasses for reading and computer use. Past medical history, appointments, medications, allergies reviewed. Previous Medical History PAST MEDICAL HISTORY Diagnosis Date Acquired hypothyroidism 11/29/2005 Bilateral carotid artery stenosis 07/13/2021 US: 06/2021: Stephen 20-40% Breast cancer (HCC) 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, right (HCC) 10/05/2017 Cataracts, bilateral 12/20/2016 Some relation to steroids with her asthma. 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 Incomplete tear of left rotator cuff 04/16/2023 Internal hemorrhoids without mention of complication Irritable bowel syndrome with both constipation and diarrhea 07/28/2020 Labral tear of long head of left biceps tendon 04/16/2023 Lichen sclerosus Living will in place 01/04/2022 DPA: Deshawn () Mass of left lower leg 07/03/2018 Benign w/u Metabolic syndrome 04/19/2016 Mild persistent asthma (HCC) 09/07/2011 Mitral valve disorders(424.0) Mixed hyperlipidemia 11/29/2005 Neural foraminal stenosis of cervical spine 03/21/2022 Mod-sever on the left Neutropenia, drug-induced 08/11/2011 Nonrheumatic aortic valve stenosis 06/13/2024 Seeing Cardio: Dr. Colon Obesity Osteopenia 12/22/2024 Right Hip Over weight 10/17/2023 Plantar fasciitis 11/24/2013 Primary insomnia 07/06/2021 Right-sided chest wall pain 10/05/2017 Secondary to breast cancer radiation. RSD (reflex sympathetic dystrophy) Sebaceous cyst 01/20/2014 Spinal stenosis, unspecified region other than cervical 03/02/2006 Tear of left glenoid labrum 04/16/2023 Trigger ring finger of right hand 06/23/2014 Vitamin D deficiency 09/15/2019 Previous Surgical History PAST SURGICAL HISTORY Procedure Laterality Date ADENOIDECTOMY PRIMARY <AGE 14 Adenoidectomy BREAST BIOPSY CORE 04/11/2011 right breast 2:00, 4:00 and 10:00 BREAST BIOPSY INCISIONAL 14 years ago right and left breast- benign BREAST RECONSTRUC W FREE FLAP 12/13/2012 bilateral breast BREAST RECONSTRUC W TISS EXPANDR 05/25/2011 right breast with elevation of the serratus flap CARDIAC CATH 03/20/2017 normal, by Dr. Colvin COLONOSCOPY 01/03/2024 repeat 3 years COLONOSCOPY FLX DX W/COLLJ SPEC WHEN PFRMD 04/08/2007 COLONOSCOPY FLX DX W/COLLJ SPEC WHEN PFRMD N/A 09/06/2016 MAC COLONOSCOPY FLX DX W/COLLJ SPEC WHEN PFRMD 02/10/2019 Colonoscopy INSJ TUNNELED CTR VAD W/SUBQ PORT AGE 5 YR/> 07/06/2011 left IJ MASTECTOMY, SIMPLE, COMPLETE 05/25/2011 right breast skin-sparing with SLND/level 1 LND MASTECTOMY, SIMPLE, COMPLETE 12/13/2012 prophylactic left breast PAST SURGICAL HISTORY OF squamous cell skin ca nose, lips, face PAST SURGICAL HISTORY OF 1972 removal of sweat glands (bilateral axilla (right x 2)and groin) PAST SURGICAL HISTORY OF 03/06/2016 removal of polyp at [facility] [employer] COVID-19 VACCINE, AGE 12+ YR (PURPLE TOP) 09/11/2020 first vaccine REM LESION TRUNK,ARM, LEG <0.5 CM 01/24/2014 Exc. deyanira cyst left inframammary REPAIR ROTATOR CUFF,ACUTE Left 07/02/2023 RMVL MOISES CTR VAD W/SUBQ PORT/BUHR MILL OPERATOR CTR/PRPH INSJ 01/18/2012 Removal left IJ port RPR COMPLEX RETINA DETACH VITRECT &MEMBRANE PEEL 09/2014 left retina SIGMOIDOSCOPY FLX DX W/COLLJ SPEC BR/WA IF PFRMD 01/27/2002 Sigmoidoscopy TONSILLECTOMY PRIMARY/SECONDARY <AGE 14 Tonsillectomy Family History FAMILY HISTORY Problem Relation Age of Onset Breast Cancer Mother dx in her 50's other (uterine cancer) Mother dx before breast cancer Aneurysm Mother Brain Heart Father MT, valve disorder Headache Sister other (other cances) Sister no known family h/o: ovarian; prostate, colon, pancreatic, lung, thyroid, brain, melenoma, leukemia, sarcomas No Known Problems Maternal Grandmother Heart Attack Maternal Grandfather other (rectal cancer) Paternal Grandmother 95 Colon Cancer Paternal Grandmother No Known Problems Paternal Grandfather No Known Problems Daughter Heart Son Breast Cancer Maternal Aunt 1) details unknown Breast Cancer Maternal Aunt 2) details unknown Patient Allergies ALLERGIES Allergen Reactions Typhoid Vaccine Intolerance Adhesive Tape (Haley* Other: See Comments after 2 days area becomes red and itches Cats Intolerance Diclofenac Other: See Comments elevated liver enz Dogs Intolerance Dust Intolerance Meloxicam Other: See Comments Swollen eyelids Mold Intolerance Tegretol [Carbamaze* Intolerance blood problem Current Medications Current Outpatient Medications on File Prior to Visit Medication Sig pioglitazone (ACTOS) 30 mg tablet Take 1 tablet by mouth once daily. atorvastatin (LIPITOR) 80 mg tablet Take 1 tablet by mouth once daily. VENTOLIN HFA 90 mcg/actuation inhaler Inhale 2 puffs as instructed every 4 hours as needed. clobetasol (TEMOVATE) 0.05 % ointment Apply 1 application to affected area two times a day. levothyroxine (SYNTHROID) 100 mcg tablet Take 1 tablet by mouth daily before breakfast. amitriptyline (ELAVIL) 25 mg tablet Take 2 tablets by mouth daily at bedtime. acetaminophen (TYLENOL) 500 mg tablet Take 1,000 mg by mouth at bedtime as needed. COMPOUNDED PRESCRIPTION NEBULIZER and supplies FOR HOME USE. DX: J45.30, J45.90. Length of need is life. This is a medically necessary devise for management of patients lung disease. Current machine recently stopped working. While trying to use it started to smoke and stopped. No current facility-administered medications on file prior to visit. Social History Social History Tobacco Use Smoking status: Former Current packs/day: 0.00 Average packs/day: 2.0 packs/day for 12.0 years (24.0 ttl pk-yrs) Types: Cigarettes Start date: 06/25/1969 Quit date: 06/25/1981 Years since quittin.5 Smokeless tobacco: Never Vaping Use Vaping status: Never Used Substance Use Topics Alcohol use: Yes Alcohol/week: 7.0 standard drinks of alcohol Types: 7 Glasses of wine per week Comment: wine with meals Drug use: No Review of Symptoms REVIEW OF SYSTEMS SEE HPI EXAM: BP 118/80 (BP Site: Left Arm, BP Position: Sitting, BP Cuff Size: Regular Adult) Pulse 84 Resp 16 Wt 94.2 kg (207 lb 9.6 oz) LMP 01/06/2009 BMI 31.57 kg/m General Appearance: Well appearing, alert, in no acute distress, well-hydrated, well nourished.. Eyes: Anicteric sclera. Pupils are equally round and reactive to light. Extraocular movements are intact. , has mild pain with moving her right eye. If upper eye lid is closed and looks down it hurts more. Could not tolerate me trying to invert the upper eye lid due to pain. Fluorecin staining of the right eye was neg for foreign body or scratch. There is mild tenderness with palpation around the eye especially superiorly and with palpation to the right eye. Ears: right external ear, canal and TM were all normal. . Health Maintenance List Influenza Vaccine(1) due on 02/23/2025 Covid-19 Vaccine(10 - Pfizer risk season) due on 05/01/2025 Depression Screening due on 10/29/2025 Anxiety Screening due on 10/29/2025 Annual PCP Team Chronic Disease Visit due on 12/31/2025 Colorectal Cancer Screening due on 01/02/2027 Diabetes Screening due on 10/28/2027 Lipid Screening due on 10/27/2029 DTaP,Tdap,Td Vaccine(4 - Td or Tdap) due on 06/10/2030 Bone Density Screening Completed Advance Directive Discussion Completed RSV Vaccine Completed Hepatitis C Screening Completed Shingrix Vaccine Completed Pneumococcal Vaccine: 50+ Completed Mammogram Screening Discontinued Cervical Cancer Screening Discontinued Data reviewed Assessment and Plan 1. Acute right eye pain (H57.11) Pain of right eye (H57.11) Ophthalmology evaluation yesterday revealed no abrasions or foreign bodies. Patient reports pain when blinking, moving the eye, and pressure on the eye, particularly when looking down. No changes in vision noted. Examination reveals mild tenderness upon palpation and significant pain on the bone around the eye. No signs of periorbital cellulitis observed. Fluorescein stain test performed, no abnormalities detected. - Ordered stat orbital CT scan to evaluate for potential underlying causes such as orbital cellulitis. - Arranged for the CT scan to be performed today, either at our facility or at [facility] if necessary. - undiagnosed new problem withunknown prognosis. 2. Medication management (Z79.899) Ophthalmology prescribed an ointment as a precautionary measure during the initial evaluation. F/u if not resolving. Liam Wilkins MD CT came back showing periorbital cellulitis. Patient was called and notified and script nikko Castellon sent to pharmacy for twice a day for 10 days. Requested Prescriptions Signed Prescriptions Disp Refills iv contrast (will be provided with radiology test) 1 each 0 Sig: CT Orbits W IVCON No IV access, insert saline lock prior to the sedation, infusion, injection for imaging exam. Discontinue saline lock post exam. If Pt. has a central line or IVAD, may access for administration according to line specific nursing protocol. Once exam is complete flush line and de-access according to line specific nursing protocol in the CT contrast administration guidelines link. cefADROxil (DURICEF) 500 mg capsule 20 capsule 0 Sig: Take 1 capsule by mouth two times a day for 10 days. Recording using [employer] software for draft documentation of the visit was discussed with the patient/authorized operations support representative; all questions welcomed and answered. Patient/authorized operations support representative agreed to proceed documented in this encounter [facility] 12-31-2024 Telephone encounter Note Patient notified. Diana [facility] RN [facility] 12-31-2024 Miscellaneous Notes Patient notified. Diana [facility] RN Ok to be seen in office. If pain gets worse I bhavna go to the ER. May need CT to make sure there is no infection behind the eye. Triage Protocol Advised: PCP TO ADVISE. Pt has appt with Dr. Wilkins for 2 pm today. Please call her back to confirm if appt ok to keep or with other instructions. Reason for Disposition MODERATE eye pain or discomfort (e.g., interferes with normal activities or awakens from sleep; more than mild) Answer Assessment - Initial Assessment Questions Pt woke up Sunday morning with right eye pain and eye soreness and also discomfort behind her eye. No redness or injury. She saw an eye provider yesterday who examined her eye and stated eye exam was good, no injury to eyeball, nothing in her eye, and pressure was good. Was ordered an antibiotic cream to apply twice a day. Had one application yesterday and one this morning. She was told that is she began to get a headache to notify PCP. Reports this morning she feels like she may have a slight headache in addition to sx's. She is calling for advise or appt. -discomfort behind right eye area and under right eyebrow area, sore when she pushes on right eyeball, rates it 6-7 out of 10 on pain scale -no right eye vision changes -right eyeball area hurts with blinking or movements -no redness -no rash -no eye drainage -no burning -no increased warmth to right eye orbit area -no swelling -no cold sx's or sinus issues -no right ear, jaw or neck pain -no fever or chills -no dental issues 1. ONSET: Sunday woke up and hurt 2. TIMING: constant and varies 3. SEVERITY: moderate-not taking any OTC analgesics 4. LOCATION: right eye area 5. CAUSE: not certain 6. VISION: no changes in vision 7. EYE DISCHARGE: none 8. FEVER: no 9. OTHER SYMPTOMS: as above 10. : no Protocols used: Eye Pain and Other [id number] documented in this encounter [facility] 12-31-2024 Telephone encounter Note Ok to be seen in office. If pain gets worse I bhavna go to the ER. May need CT to make sure there is no infection behind the eye. [facility] 12-31-2024 Telephone encounter Note Pt prior pharmacy is now permanently closed. Requesting refill of this script to be sent to new pharmacy, as pended. Thank you. The patient has been identified by name and date of : Yes Caregiver verified no other encounters exist for this prescription request: Yes Caregiver confirmed with patient/requestor that no other refills are due, in the near future, with this provider at this time: Yes The last office visit in the department: 11/26/2024 Does the patient have a future office visit with this provider/department: Yes 12/31/2024 Requested Prescriptions Pending Prescriptions Disp Refills metoprolol succinate ER (TOPROL XL) 25 mg 24 hr tablet 90 tablet 1 Sig: Take 1 tablet by mouth once daily. Diana [facility] RN [facility] 12-31-2024 Miscellaneous Notes Pt prior pharmacy is now permanently closed. Requesting refill of this script to be sent to new pharmacy, as pended. Thank you. The patient has been identified by name and date of : Yes Caregiver verified no other encounters exist for this prescription request: Yes Caregiver confirmed with patient/requestor that no other refills are due, in the near future, with this provider at this time: Yes The last office visit in the department: 11/26/2024 Does the patient have a future office visit with this provider/department: Yes 12/31/2024 Requested Prescriptions Pending Prescriptions Disp Refills metoprolol succinate ER (TOPROL XL) 25 mg 24 hr tablet 90 tablet 1 Sig: Take 1 tablet by mouth once daily. Diana [facility] RN documented in this encounter [facility] 12-31-2024 Telephone encounter Note Triage Protocol Advised: PCP TO ADVISE. Pt has appt with Dr. Wilkins for 2 pm today. Please call her back to confirm if appt ok to keep or with other instructions. Reason for Disposition MODERATE eye pain or discomfort (e.g., interferes with normal activities or awakens from sleep; more than mild) Answer Assessment - Initial Assessment Questions Pt woke up Sunday morning with right eye pain and eye soreness and also discomfort behind her eye. No redness or injury. She saw an eye provider yesterday who examined her eye and stated eye exam was good, no injury to eyeball, nothing in her eye, and pressure was good. Was ordered an antibiotic cream to apply twice a day. Had one application yesterday and one this morning. She was told that is she began to get a headache to notify PCP. Reports this morning she feels like she may have a slight headache in addition to sx's. She is calling for advise or appt. -discomfort behind right eye area and under right eyebrow area, sore when she pushes on right eyeball, rates it 6-7 out of 10 on pain scale -no right eye vision changes -right eyeball area hurts with blinking or movements -no redness -no rash -no eye drainage -no burning -no increased warmth to right eye orbit area -no swelling -no cold sx's or sinus issues -no right ear, jaw or neck pain -no fever or chills -no dental issues 1. ONSET: Sunday woke up and hurt 2. TIMING: constant and varies 3. SEVERITY: moderate-not taking any OTC analgesics 4. LOCATION: right eye area 5. CAUSE: not certain 6. VISION: no changes in vision 7. EYE DISCHARGE: none 8. FEVER: no 9. OTHER SYMPTOMS: as above 10. : no Protocols used: Eye Pain and Other [id number] [facility] 12-15-2024 Telephone encounter Note [employer] message sent with response to below per pt request Clarisa Solorzano MA [facility] 12-15-2024 Miscellaneous Notes [employer] message sent with response to below per pt request Clarisa Solorzano MA Ok for patient to start supplementation. Patient calling with question, she was told by 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 Patient wanted to ask PCP if she should go ahead and start taking both? Can send her a my chart message with response. Please advise documented in this encounter [facility] 12-15-2024 Telephone encounter Note Ok for patient to start supplementation. [facility] 12-15-2024 Telephone encounter Note Patient calling with question, she was told by 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 Patient wanted to ask PCP if she should go ahead and start taking both? Can send her a my chart message with response. Please advise [facility] 12-15-2024 Telephone encounter Note The patient has been identified by name and date of : Yes Caregiver verified no other encounters exist for this prescription request: Yes Caregiver confirmed with patient/requestor that no other refills are due, in the near future, with this provider at this time: Yes The last office visit in the department: 11/26/2024 Does the patient have a future office visit with this provider/department: Yes 05/05/2025 Requested Prescriptions Pending Prescriptions Disp Refills pioglitazone (ACTOS) 30 mg tablet 90 tablet Sig: Take 1 tablet by mouth once daily. Eliz Camarena LPN December 15, 2024 9:36 AM [facility] 12-15-2024 Miscellaneous Notes The patient has been identified by name and date of : Yes Caregiver verified no other encounters exist for this prescription request: Yes Caregiver confirmed with patient/requestor that no other refills are due, in the near future, with this provider at this time: Yes The last office visit in the department: 11/26/2024 Does the patient have a future office visit with this provider/department: Yes 05/05/2025 Requested Prescriptions Pending Prescriptions Disp Refills pioglitazone (ACTOS) 30 mg tablet 90 tablet Sig: Take 1 tablet by mouth once daily. Eliz Camarena LPN December 15, 2024 9:36 AM documented in this encounter [facility] 12-11-2024 History of Present illness Narrative Radiology Service Progress Note PATIENT NAME: Montserrat Aguayo DATE OF SERVICE: December 11, 2024 TIME: 3:22 PM PATIENT IDENTITY VERIFICATION COMPLETED USING TWO (2) IDENTIFIERS: Name and Date of confirmed by patient verbally. FALL SCREENING: Has the patient had 2 falls in the last year or 1 fall with injury or currently using an Ambulatory Assistive Device (Walker, Cane, Wheelchair, Crutches, etc.)? No PATIENT GENDER DATA: Assigned female at . status: : No status: NO. PATIENT RELEVANT IMPLANT DATA REVIEWED: Not Applicable PATIENT PRESENTS WITH AN IMPLANTABLE OR ATTACHED UNIT SECRETARY: No RADIOLOGY DEPARTMENT: Bone Density PERIPHERAL IV DATA: Not applicable SIGNED BY: RT Manuel(Rod) December 11, 2024 3:22 PM documented in this encounter [facility] 12-11-2024 Note HNO ID: [id number] Author: ANGELICA ECHEVERRIA RT(R) Service: ? Author Type: Technologist Type: Progress Notes Filed: 12/11/2024 15:30 Note Text: Radiology Service Progress Note PATIENT NAME: Montserrat Aguayo DATE OF SERVICE: December 11, 2024 TIME: 3:22 PM PATIENT IDENTITY VERIFICATION COMPLETED USING TWO (2) IDENTIFIERS: Name and Date of confirmed by patient verbally. FALL SCREENING: Has the patient had 2 falls in the last year or 1 fall with injury or currently using an Ambulatory Assistive Device (Walker, Cane, Wheelchair, Crutches, etc.)? No PATIENT GENDER DATA: Assigned female at . status: : No status: NO. PATIENT RELEVANT IMPLANT DATA REVIEWED: Not Applicable PATIENT PRESENTS WITH AN IMPLANTABLE OR ATTACHED UNIT SECRETARY: No RADIOLOGY DEPARTMENT: Bone Density PERIPHERAL IV DATA: Not applicable SIGNED BY: RT Manuel(R) December 11, 2024 3:22 PM [facility] 11-26-2024 Telephone encounter Note Patient notified of results and provider's instructions. Patient verbalizes understanding. Sabas Peacock LPN [facility] 11-26-2024 Miscellaneous Notes Patient notified of results and provider's instructions. Patient verbalizes understanding. Sabas Peacock LPN CXR negative. Continue as we discussed. documented in this encounter [facility] 11-26-2024 Telephone encounter Note CXR negative. Continue as we discussed. [facility] 11-26-2024 History of Present illness Narrative Radiology Service Progress Note PATIENT NAME: Montserrat Aguayo DATE OF SERVICE: November 26, 2024 TIME: 10:26 AM PATIENT IDENTITY VERIFICATION COMPLETED USING TWO (2) IDENTIFIERS: Name and Date of confirmed by patient verbally. FALL SCREENING: Has the patient had 2 falls in the last year or 1 fall with injury or currently using an Ambulatory Assistive Device (Walker, Cane, Wheelchair, Crutches, etc.)? No PATIENT GENDER DATA: Assigned female at . status: : No status: NO. PATIENT RELEVANT IMPLANT DATA REVIEWED: Yes PATIENT PRESENTS WITH AN IMPLANTABLE OR ATTACHED UNIT SECRETARY: No RADIOLOGY DEPARTMENT: General X-ray: Exam(s) Completed: Chest X-Ray PERIPHERAL IV DATA: Not applicable SIGNED BY: RT Almas(R) November 26, 2024 10:26 AM documented in this encounter [facility] 11-26-2024 Note HNO ID: [id number] Author: AVNI RICKS RT(R) Service: ? Author Type: Country Director Type: Progress Notes Filed: 11/26/2024 10:32 Note Text: Radiology Service Progress Note PATIENT NAME: Montserrat Aguayo DATE OF SERVICE: November 26, 2024 TIME: 10:26 AM PATIENT IDENTITY VERIFICATION COMPLETED USING TWO (2) IDENTIFIERS: Name and Date of confirmed by patient verbally. FALL SCREENING: Has the patient had 2 falls in the last year or 1 fall with injury or currently using an Ambulatory Assistive Device (Walker, Cane, Wheelchair, Crutches, etc.)? No PATIENT GENDER DATA: Assigned female at . status: : No status: NO. PATIENT RELEVANT IMPLANT DATA REVIEWED: Yes PATIENT PRESENTS WITH AN IMPLANTABLE OR ATTACHED UNIT SECRETARY: No RADIOLOGY DEPARTMENT: General X-ray: Exam(s) Completed: Chest X-Ray PERIPHERAL IV DATA: Not applicable SIGNED BY: RT Almas(Rod) November 26, 2024 10:26 AM [facility] 11-26-2024 Note HNO ID: [id number] Author: SABAS PEACOCK LPN Service: ? Author Type: LICENSED NURSE Type: Progress Notes Filed: 11/26/2024 11:24 Note Text: Albuterol 2.5 mg solution aerosol treatment given per doctor's order at 8:50. Lot # [id number], Expiration date 04/24/25. O2 sat is 98% on room air post-treatment.. Patient tolerated treatment with no adverse effects. Sabas Peacock LPN [facility] 11-26-2024 History of Present illness Narrative Albuterol 2.5 mg solution aerosol treatment given per doctor's order at 8:50. Lot # [id number], Expiration date 04/24/25. O2 sat is 98% on room air post-treatment.. Patient tolerated treatment with no adverse effects. Sabas Peacock LPN Chief Complaint Patient presents with: Follow Up: Was seen in and is not feeling any better HPI Montserrat Aguayo is a 74 year old female who presents here today for continued URI symptoms and productive cough. She was seen in 1 week ago, was given 40 mg prednisone x5d and doxycycline x5 days both completed without any improvement. She has a history of asthma and has been using her ventolin inhaler more frequently. She is coughing up mucus and wakes up during the night coughing. Denies fever, SOB, chest pain, n/v, diarrhea or hemoptysis. She does use afrin daily but this has been her habit for over 20 years. Past medical history, appointments, medications, allergies reviewed. Previous Medical History PAST MEDICAL HISTORY Diagnosis Date Acquired hypothyroidism 11/29/2005 Bilateral carotid artery stenosis 07/13/2021 US: 06/2021: Stephen 20-40% Breast cancer (HCC) 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, right (HCC) 10/05/2017 Cataracts, bilateral 12/20/2016 Some relation to steroids with her asthma. 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 Incomplete tear of left rotator cuff 04/16/2023 Internal hemorrhoids without mention of complication Irritable bowel syndrome with both constipation and diarrhea 07/28/2020 Labral tear of long head of left biceps tendon 04/16/2023 Lichen sclerosus Living will in place 01/04/2022 DPA: Deshawn () Mass of left lower leg 07/03/2018 Benign w/u Metabolic syndrome 04/19/2016 Mild persistent asthma (HCC) 09/07/2011 Mitral valve disorders(424.0) Mixed hyperlipidemia 11/29/2005 Neural foraminal stenosis of cervical spine 03/21/2022 Mod-sever on the left Neutropenia, drug-induced 08/11/2011 Nonrheumatic aortic valve stenosis 06/13/2024 Seeing Cardio: Dr. Colon Obesity Over weight 10/17/2023 Plantar fasciitis 11/24/2013 Primary insomnia 07/06/2021 Right-sided chest wall pain 10/05/2017 Secondary to breast cancer radiation. RSD (reflex sympathetic dystrophy) Sebaceous cyst 01/20/2014 Spinal stenosis, unspecified region other than cervical 03/02/2006 Tear of left glenoid labrum 04/16/2023 Trigger ring finger of right hand 06/23/2014 Vitamin D deficiency 09/15/2019 Previous Surgical History PAST SURGICAL HISTORY Procedure Laterality Date ADENOIDECTOMY PRIMARY <AGE 14 Adenoidectomy BREAST BIOPSY CORE 04/11/2011 right breast 2:00, 4:00 and 10:00 BREAST BIOPSY INCISIONAL 14 years ago right and left breast- benign BREAST RECONSTRUC W FREE FLAP 12/13/2012 bilateral breast BREAST RECONSTRUC W TISS EXPANDR 05/25/2011 right breast with elevation of the serratus flap CARDIAC CATH 03/20/2017 normal, by Dr. Colvin COLONOSCOPY 01/03/2024 repeat 3 years COLONOSCOPY FLX DX W/COLLJ SPEC WHEN PFRMD 04/08/2007 COLONOSCOPY FLX DX W/COLLJ SPEC WHEN PFRMD N/A 09/06/2016 MAC COLONOSCOPY FLX DX W/COLLJ SPEC WHEN PFRMD 02/10/2019 Colonoscopy INSJ TUNNELED CTR VAD W/SUBQ PORT AGE 5 YR/> 07/06/2011 left IJ MASTECTOMY, SIMPLE, COMPLETE 05/25/2011 right breast skin-sparing with SLND/level 1 LND MASTECTOMY, SIMPLE, COMPLETE 12/13/2012 prophylactic left breast PAST SURGICAL HISTORY OF squamous cell skin ca nose, lips, face PAST SURGICAL HISTORY OF 1972 removal of sweat glands (bilateral axilla (right x 2)and groin) PAST SURGICAL HISTORY OF 03/06/2016 removal of polyp at [facility] [employer] COVID-19 VACCINE, AGE 12+ YR (PURPLE TOP) 09/11/2020 first vaccine REM LESION TRUNK,ARM, LEG <0.5 CM 01/24/2014 Exc. deyanira cyst left inframammary REPAIR ROTATOR CUFF,ACUTE Left 07/02/2023 RMVL MOISES CTR VAD W/SUBQ PORT/BUHR MILL OPERATOR CTR/PRPH INSJ 01/18/2012 Removal left IJ port RPR COMPLEX RETINA DETACH VITRECT &MEMBRANE PEEL 09/2014 left retina SIGMOIDOSCOPY FLX DX W/COLLJ SPEC BR/WA IF PFRMD 01/27/2002 Sigmoidoscopy TONSILLECTOMY PRIMARY/SECONDARY <AGE 14 Tonsillectomy Family History FAMILY HISTORY Problem Relation Age of Onset Breast Cancer Mother dx in her 50's other (uterine cancer) Mother dx before breast cancer Aneurysm Mother Brain Heart Father [place], valve disorder Headache Sister other (other cances) Sister no known family h/o: ovarian; prostate, colon, pancreatic, lung, thyroid, brain, melenoma, leukemia, sarcomas No Known Problems Maternal Grandmother Heart Attack Maternal Grandfather other (rectal cancer) Paternal Grandmother 95 Colon Cancer Paternal Grandmother No Known Problems Paternal Grandfather No Known Problems Daughter Heart Son Breast Cancer Maternal Aunt 1) details unknown Breast Cancer Maternal Aunt 2) details unknown Patient Allergies ALLERGIES Allergen Reactions Typhoid Vaccine Intolerance Adhesive Tape (Haley* Other: See Comments after 2 days area becomes red and itches Cats Intolerance Diclofenac Other: See Comments elevated liver enz Dogs Intolerance Dust Intolerance Meloxicam Other: See Comments Swollen eyelids Mold Intolerance Tegretol [Carbamaze* Intolerance blood problem Current Medications Current Outpatient Medications on File Prior to Visit Medication Sig doxycycline (VIBRA-TABS) 100 mg tablet Take 1 tablet by mouth two times a day for 5 days. (Patient not taking: Reported on 11/26/2024) predniSONE (DELTASONE) 20 mg tablet Take 2 tablets by mouth once daily for 5 days. (Patient not taking: Reported on 11/26/2024) VENTOLIN HFA 90 mcg/actuation inhaler Inhale 2 puffs as instructed every 4 hours as needed. clobetasol (TEMOVATE) 0.05 % ointment Apply 1 application to affected area two times a day. pioglitazone (ACTOS) 15 mg tablet Take 2 tablets by mouth once daily. metoprolol succinate ER (TOPROL XL) 25 mg 24 hr tablet Take 1 tablet by mouth once daily. levothyroxine (SYNTHROID) 100 mcg tablet Take 1 tablet by mouth daily before breakfast. amitriptyline (ELAVIL) 25 mg tablet Take 2 tablets by mouth daily at bedtime. atorvastatin (LIPITOR) 80 mg tablet Take 1 tablet by mouth once daily. fluticasone-salmeterol (ADVAIR, WIXELA) 250-50 mcg/dose inhaler Inhale 1 Puff as instructed two times a day. (Patient not taking: Reported on 11/21/2024) acetaminophen (TYLENOL) 500 mg tablet Take 1,000 mg by mouth at bedtime as needed. COMPOUNDED PRESCRIPTION NEBULIZER and supplies FOR HOME USE. DX: J45.30, J45.90. Length of need is life. This is a medically necessary devise for management of patients lung disease. Current machine recently stopped working. While trying to use it started to smoke and stopped. No current facility-administered medications on file prior to visit. Social History Social History Tobacco Use Smoking status: Former Current packs/day: 0.00 Average packs/day: 2.0 packs/day for 12.0 years (24.0 ttl pk-yrs) Types: Cigarettes Start date: 06/25/1969 Quit date: 06/25/1981 Years since quittin.4 Smokeless tobacco: Never Vaping Use Vaping status: Never Used Substance Use Topics Alcohol use: Yes Alcohol/week: 7.0 standard drinks of alcohol Types: 7 Glasses of wine per week Comment: wine with meals Drug use: No Review of Symptoms REVIEW OF SYSTEMS GENERAL: No weight loss, malaise or fevers HEENT: Negative for frequent or significant headaches, No changes in hearing or vision, no nasal problems RESPIRATORY: Negative for cough, hemoptysis, dyspnea or shortness of breath CARDIOVASCULAR: Negative for chest pain or palpitations GI: No nausea, vomiting, or diarrhea EXAM: BP 128/70 (BP Site: Left Arm, BP Position: Sitting, BP Cuff Size: Large Adult) Pulse 71 Temp 36.1 C (97 F) Resp 18 Wt 91.6 kg (202 lb) LMP 01/06/2009 SpO2 96% BMI 30.72 kg/m Head: Normocephalic, no masses, lesions, tenderness or abnormalities. Eyes: Anicteric sclera. Extraocular movements are intact. . Ears: External ears normal, canals clear. Nose/Sinuses: Nares normal, septum midline, mucosa normal, no drainage or sinus tenderness. Oropharynx: Lips, mucosa, and tongue normal, teeth and gums normal, oropharynx normal. Neck: Supple, no adenopathy; thyroid symmetric, normal size Lungs: +expiratory wheezing bilaterally. No rhonchi or rales.. Heart: RRR without murmur, gallop, or rubs. No ectopy. Health Maintenance List Covid-19 Vaccine(10 - Pfizer risk season) due on 05/01/2025 Annual PCP Team Chronic Disease Visit due on 10/29/2025 Depression Screening due on 10/29/2025 Anxiety Screening due on 10/29/2025 Colorectal Cancer Screening due on 01/02/2027 Diabetes Screening due on 10/28/2027 Lipid Screening due on 10/27/2029 DTaP,Tdap,Td Vaccine(4 - Td or Tdap) due on 06/10/2030 Bone Density Screening Completed Influenza Vaccine Completed Advance Directive Discussion Completed RSV Vaccine Completed Hepatitis C Screening Completed Shingrix Vaccine Completed Pneumococcal Vaccine: 50+ Completed Mammogram Screening Discontinued Cervical Cancer Screening Discontinued Data reviewed ASSESSMENT/PLAN: 1. URI, acute - ICD9: 465.9, ICD10: J06.9 (primary diagnosis) Due to her symptoms continuing for over a week and her age, 10 day course of augmentin was prescribed. Also instructed pt to continue with mucinex and informed her to take up to 1200mg a day. (Or 600 BID depending on OTC box instructions at home) Ordered Chest XR to r/o other causes of her symptoms Start pred taper. - XR CHEST 2V FRONTAL/LAT - ALBUTEROL SULFATE 2.5 MG/3 ML (0.083 %) SOLUTION FOR NEBULIZATION 2. Mild intermittent asthma with acute exacerbation (HCC) - ICD9: 493.92, ICD10: J45.21 Patient received nebulizer treatment in office today. This improved her pulse ox from 96 to 98 and her expiratory wheezing was decreased bilaterally as well. Instructed patient to continue using her albuterol as needed - ALBUTEROL SULFATE 2.5 MG/3 ML (0.083 %) SOLUTION FOR NEBULIZATION Patient to follow up as needed for worsening or no improvement in symptoms. Eugenie Green PA-S I have personally seen and examined the patient and performed the medical-decision making components. I have reviewed the Physician Press Machine Feeder (PA) student's documentation and verified the findings in the note as written. Any additions or changes are noted in bold/italics. Obdulia Rowley PA-C documented in this encounter [facility] 11-26-2024 Note HNO ID: [id number] Author: OBDULIA ROWLEY PA-C Service: ? Author Type: Physician Press Machine Feeder Type: Progress Notes Filed: 11/26/2024 11:24 Note Text: Chief Complaint Patient presents with: Follow Up: Was seen in and is not feeling any better HPI Montserrat Aguayo is a 74 year old female who presents here today for continued URI symptoms and productive cough. She was seen in 1 week ago, was given 40 mg prednisone x5d and doxycycline x5 days both completed without any improvement. She has a history of asthma and has been using her ventolin inhaler more frequently. She is coughing up mucus and wakes up during the night coughing. Denies fever, SOB, chest pain, n/v, diarrhea or hemoptysis. She does use afrin daily but this has been her habit for over 20 years. Past medical history, appointments, medications, allergies reviewed. Previous Medical History PAST MEDICAL HISTORY Diagnosis Date Acquired hypothyroidism 11/29/2005 Bilateral carotid artery stenosis 07/13/2021 US: 06/2021: Stephen 20-40% Breast cancer (HCC) 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, right (HCC) 10/05/2017 Cataracts, bilateral 12/20/2016 Some relation to steroids with her asthma. 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 Incomplete tear of left rotator cuff 04/16/2023 Internal hemorrhoids without mention of complication Irritable bowel syndrome with both constipation and diarrhea 07/28/2020 Labral tear of long head of left biceps tendon 04/16/2023 Lichen sclerosus Living will in place 01/04/2022 DPA: Deshawn () Mass of left lower leg 07/03/2018 Benign w/u Metabolic syndrome 04/19/2016 Mild persistent asthma (HCC) 09/07/2011 Mitral valve disorders(424.0) Mixed hyperlipidemia 11/29/2005 Neural foraminal stenosis of cervical spine 03/21/2022 Mod-sever on the left Neutropenia, drug-induced 08/11/2011 Nonrheumatic aortic valve stenosis 06/13/2024 Seeing Cardio: Dr. Colon Obesity Over weight 10/17/2023 Plantar fasciitis 11/24/2013 Primary insomnia 07/06/2021 Right-sided chest wall pain 10/05/2017 Secondary to breast cancer radiation. RSD (reflex sympathetic dystrophy) Sebaceous cyst 01/20/2014 Spinal stenosis, unspecified region other than cervical 03/02/2006 Tear of left glenoid labrum 04/16/2023 Trigger ring finger of right hand 06/23/2014 Vitamin D deficiency 09/15/2019 Previous Surgical History PAST SURGICAL HISTORY Procedure Laterality Date ADENOIDECTOMY PRIMARY Adenoidectomy BREAST BIOPSY CORE 04/11/2011 right breast 2:00, 4:00 and 10:00 BREAST BIOPSY INCISIONAL 14 years ago right and left breast- benign BREAST RECONSTRUC W FREE FLAP 12/13/2012 bilateral breast BREAST RECONSTRUC W TISS EXPANDR 05/25/2011 right breast with elevation of the serratus flap CARDIAC CATH 03/20/2017 normal, by Dr. Colvin COLONOSCOPY 01/03/2024 repeat 3 years COLONOSCOPY FLX DX W/COLLJ SPEC WHEN PFRMD 04/08/2007 COLONOSCOPY FLX DX W/COLLJ SPEC WHEN PFRMD N/A 09/06/2016 MAC COLONOSCOPY FLX DX W/COLLJ SPEC WHEN PFRMD 02/10/2019 Colonoscopy INSJ TUNNELED CTR VAD W/SUBQ PORT AGE 5 YR/> 07/06/2011 left IJ MASTECTOMY, SIMPLE, COMPLETE 05/25/2011 right breast skin-sparing with SLND/level 1 LND MASTECTOMY, SIMPLE, COMPLETE 12/13/2012 prophylactic left breast PAST SURGICAL HISTORY OF squamous cell skin ca nose, lips, face PAST SURGICAL HISTORY OF 1972 removal of sweat glands (bilateral axilla (right x 2)and groin) PAST SURGICAL HISTORY OF 03/06/2016 removal of polyp at [facility] [employer] COVID-19 VACCINE, AGE 12+ YR (PURPLE TOP) 09/11/2020 first vaccine REM LESION TRUNK,ARM, LEG <0.5 CM 01/24/2014 Exc. deyanira cyst left inframammary REPAIR ROTATOR CUFF,ACUTE Left 07/02/2023 RMVL MOISES CTR VAD W/SUBQ PORT/BUHR MILL OPERATOR CTR/PRPH INSJ 01/18/2012 Removal left IJ port RPR COMPLEX RETINA DETACH VITRECT ANDMEMBRANE PEEL 09/2014 left retina SIGMOIDOSCOPY FLX DX W/COLLJ SPEC BR/WA IF PFRMD 01/27/2002 Sigmoidoscopy TONSILLECTOMY PRIMARY/SECONDARY Tonsillectomy Family History FAMILY HISTORY Problem Relation Age of Onset Breast Cancer Mother dx in her 50's other (uterine cancer) Mother dx before breast cancer Aneurysm Mother Brain Heart Father [place], valve disorder Headache Sister other (other cances) Sister no known family h/o: ovarian; prostate, colon, pancreatic, lung, thyroid, brain, melenoma, leukemia, sarcomas No Known Problems (more content not included)... [facility] 11-25-2024 Telephone encounter Note Pt notified via [employer]. [facility] 11-25-2024 Miscellaneous Notes Pt notified via [employer]. Images from the original note were not included. Electronic PA rec'd and completed for [employer]. This was reviewed and approved with insurance. prior authorization approved Payer: [employer] [phone] Note from payer: CaseId:[id number];Status:Approved;Re view Type:Prior Auth;Coverage Start Date:10/25/2024;Coverage End Date:11/24/2025; Approval Details Authorized from October 25, 2024 to November 24, 2025 Electronic appeal: Not supported View History Medication Being Authorized VENTOLIN HFA 90 mcg/actuation inhaler Inhale 2 puffs as instructed every 4 hours as needed. Dispense: 18 g Refills: 2 ISAAC Start: 11/21/2024 Class: Normal This order has been released to its destination. To be filled at: [place] [address] [address] [place] [address] documented in this encounter [facility] 11-25-2024 Telephone encounter Note Images from the original note were not included. Electronic PA rec'd and completed for ventolin. This was reviewed and approved with insurance. prior authorization approved Payer: [employer] [phone] Note from payer: CaseId:[id number];Status:Approved;Re view Type:Prior Auth;Coverage Start Date:10/25/2024;Coverage End Date:11/24/2025; Approval Details Authorized from October 25, 2024 to November 24, 2025 Electronic appeal: Not supported View History Medication Being Authorized VENTOLIN HFA 90 mcg/actuation inhaler Inhale 2 puffs as instructed every 4 hours as needed. Dispense: 18 g Refills: 2 ISAAC Start: 11/21/2024 Class: Normal This order has been released to its destination. To be filled at: [place] [address] [address] [address] [facility] 11-21-2024 Telephone encounter Note The following approved medication requests have been transmitted electronically. Requested Prescriptions Signed Prescriptions Disp Refills VENTOLIN HFA 90 mcg/actuation inhaler 18 g 2 Sig: Inhale 2 puffs as instructed every 4 hours as needed. Authorizing Provider: LIAM WILKINS MD [facility] 11-21-2024 Miscellaneous Notes The following approved medication requests have been transmitted electronically. Requested Prescriptions Signed Prescriptions Disp Refills VENTOLIN HFA 90 mcg/actuation inhaler 18 g 2 Sig: Inhale 2 puffs as instructed every 4 hours as needed. Authorizing Provider: LIAM WILKINS MD Patient requests refill of Ventolin as below. Patient reports that insurance no longer covers ventolin and she has spoke with [employer] both of which reports PA needs submitted. Prior Authorization Documentation Prior authorization requested for the following medication: Medication: Ventolin Inhaler Provider: Dr. Wilkins Insurance Company Name: [employer] Phone number: [phone] Patient ID number: [id number] RXBIN: [id number] [id number] Pharm[facility] Name: [facility] Telephone number: [phone] The patient has been identified by name and date of : Yes Caregiver verified no other encounters exist for this prescription request: Yes Caregiver confirmed with patient/requestor that no other refills are due, in the near future, with this provider at this time: Yes The last office visit in the department: 10/29/2024 Does the patient have a future office visit with this provider/department: 05/05/2025 Requested Prescriptions Pending Prescriptions Disp Refills VENTOLIN HFA 90 mcg/actuation inhaler 18 g 0 Sig: Inhale 2 puffs as instructed every 4 hours as needed. Audrey Chamberlain RN November 21, 2024 2:16 PM documented in this encounter [facility] 11-21-2024 Telephone encounter Note Patient requests refill of Ventolin as below. Patient reports that insurance no longer covers ventolin and she has spoke with [employer] both of which reports PA needs submitted. Prior Authorization Documentation Prior authorization requested for the following medication: Medication: Ventolin Inhaler Provider: Dr. Wilkins Insurance Company Name: [employer] Phone number: [phone] Patient ID number: [id number] RXBIN: [id number] RXGRP: [id number] Pharmacy Name: [facility] Telephone number: [phone] [facility] 11-21-2024 Telephone encounter Note The patient has been identified by name and date of : Yes Caregiver verified no other encounters exist for this prescription request: Yes Caregiver confirmed with patient/requestor that no other refills are due, in the near future, with this provider at this time: Yes The last office visit in the department: 10/29/2024 Does the patient have a future office visit with this provider/department: 05/05/2025 Requested Prescriptions Pending Prescriptions Disp Refills VENTOLIN HFA 90 mcg/actuation inhaler 18 g 0 Sig: Inhale 2 puffs as instructed every 4 hours as needed. Audrey Chamberlain RN November 21, 2024 2:16 PM T [facility] 11-21-2024 Note HNO ID: [id number] Author: LIAM GONZALES APRN.INTEL RECRUITER Service: ? Author Type: Nurse Practitioner Type: Progress Notes Filed: 11/21/2024 10:05 Note Text: Subjective HPI Nontoxic-appearing 74-year-old female presents urgent care chief complaint cough body aches chills chest congestion. Duration of symptoms 3 to 4 days. Associated symptoms listed above. Presents today for evaluation. No throat symptoms today is productive cough. States has been using rescue inhaler much more frequently. OTC medications acetaminophen. This is helped with symptom management. Denies any chest pain or hemoptysis. No pleuritic pain. No high fevers. Past medical history prescription medications allergies reviewed. .Patient presents with: Cough: Chest congestion, sneezing, runny nose, sore throat, productive cough, yellow mucous, wheeze and rattling in chest, tightness in chest x 3 days PAST MEDICAL HISTORY Diagnosis Date Acquired hypothyroidism 11/29/2005 Bilateral carotid artery stenosis 07/13/2021 US: 06/2021: Stephen 20-40% Breast cancer (HCC) 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, right (HCC) 10/05/2017 Cataracts, bilateral 12/20/2016 Some relation to steroids with her asthma. 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 Incomplete tear of left rotator cuff 04/16/2023 Internal hemorrhoids without mention of complication Irritable bowel syndrome with both constipation and diarrhea 07/28/2020 Labral tear of long head of left biceps tendon 04/16/2023 Lichen sclerosus Living will in place 01/04/2022 DPA: Deshawn () Mass of left lower leg 07/03/2018 Benign w/u Metabolic syndrome 04/19/2016 Mild persistent asthma (HCC) 09/07/2011 Mitral valve disorders(424.0) Mixed hyperlipidemia 11/29/2005 Neural foraminal stenosis of cervical spine 03/21/2022 Mod-sever on the left Neutropenia, drug-induced 08/11/2011 Nonrheumatic aortic valve stenosis 06/13/2024 Seeing Cardio: Dr. Colon Obesity Over weight 10/17/2023 Plantar fasciitis 11/24/2013 Primary insomnia 07/06/2021 Right-sided chest wall pain 10/05/2017 Secondary to breast cancer radiation. RSD (reflex sympathetic dystrophy) Sebaceous cyst 01/20/2014 Spinal stenosis, unspecified region other than cervical 03/02/2006 Tear of left glenoid labrum 04/16/2023 Trigger ring finger of right hand 06/23/2014 Vitamin D deficiency 09/15/2019 PAST SURGICAL HISTORY Procedure Laterality Date ADENOIDECTOMY PRIMARY Adenoidectomy BREAST BIOPSY CORE 04/11/2011 right breast 2:00, 4:00 and 10:00 BREAST BIOPSY INCISIONAL 14 years ago right and left breast- benign BREAST RECONSTRUC W FREE FLAP 12/13/2012 bilateral breast BREAST RECONSTRUC W TISS EXPANDR 05/25/2011 right breast with elevation of the serratus flap CARDIAC CATH 03/20/2017 normal, by Dr. Colvin COLONOSCOPY 01/03/2024 repeat 3 years COLONOSCOPY FLX DX W/COLLJ SPEC WHEN PFRMD 04/08/2007 COLONOSCOPY FLX DX W/COLLJ SPEC WHEN PFRMD N/A 09/06/2016 MAC COLONOSCOPY FLX DX W/COLLJ SPEC WHEN PFRMD 02/10/2019 Colonoscopy INSJ TUNNELED CTR VAD W/SUBQ PORT AGE 5 YR/> 07/06/2011 left IJ MASTECTOMY, SIMPLE, COMPLETE 05/25/2011 right breast skin-sparing with SLND/level 1 LND MASTECTOMY, SIMPLE, COMPLETE 12/13/2012 prophylactic left breast PAST SURGICAL HISTORY OF squamous cell skin ca nose, lips, face PAST SURGICAL HISTORY OF 1972 removal of sweat glands (bilateral axilla (right x 2)and groin) PAST SURGICAL HISTORY OF 03/06/2016 removal of polyp at [facility] [employer] COVID-19 VACCINE, AGE 12+ YR (PURPLE TOP) 09/11/2020 first vaccine REM LESION TRUNK,ARM, LEG <0.5 CM 01/24/2014 Exc. deyanira cyst left inframammary REPAIR ROTATOR CUFF,ACUTE Left 07/02/2023 RMVL MOISES CTR VAD W/SUBQ PORT/BUHR MILL OPERATOR CTR/PRPH INSJ 01/18/2012 Removal left IJ port RPR COMPLEX RETINA DETACH VITRECT ANDMEMBRANE PEEL 09/2014 left retina SIGMOIDOSCOPY FLX DX W/COLLJ SPEC BR/WA IF PFRMD 01/27/2002 Sigmoidoscopy TONSILLECTOMY PRIMARY/SECONDARY Tonsillectomy ALLERGIES Typhoid Vaccine, Adhesive Tape (Rosins), Cats, Diclofenac, Dogs, Dust, Meloxicam, Mold, and Tegretol [Carbamazepine Analogues] MEDICATIONS clobetasol (TEMOVATE) 0.05 % ointment Apply 1 application to affected area two times a day. pioglitazone (ACTOS) 15 mg tablet Take 2 tablets by mouth once daily. metoprolol succinate ER (TOPROL XL) 25 mg 24 hr tablet Take 1 tablet by mouth once daily. levothy (more content not included)... [facility] 11-21-2024 History of Present illness Narrative Subjective HPI Nontoxic-appearing 74-year-old female presents urgent care chief complaint cough body aches chills chest congestion. Duration of symptoms 3 to 4 days. Associated symptoms listed above. Presents today for evaluation. No throat symptoms today is productive cough. States has been using rescue inhaler much more frequently. OTC medications acetaminophen. This is helped with symptom management. Denies any chest pain or hemoptysis. No pleuritic pain. No high fevers. Past medical history prescription medications allergies reviewed. .Patient presents with: Cough: Chest congestion, sneezing, runny nose, sore throat, productive cough, yellow mucous, wheeze and rattling in chest, tightness in chest x 3 days PAST MEDICAL HISTORY Diagnosis Date Acquired hypothyroidism 11/29/2005 Bilateral carotid artery stenosis 07/13/2021 US: 06/2021: Stephen 20-40% Breast cancer (HCC) 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, right (HCC) 10/05/2017 Cataracts, bilateral 12/20/2016 Some relation to steroids with her asthma. 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 Incomplete tear of left rotator cuff 04/16/2023 Internal hemorrhoids without mention of complication Irritable bowel syndrome with both constipation and diarrhea 07/28/2020 Labral tear of long head of left biceps tendon 04/16/2023 Lichen sclerosus Living will in place 01/04/2022 DPA: Deshawn () Mass of left lower leg 07/03/2018 Benign w/u Metabolic syndrome 04/19/2016 Mild persistent asthma (HCC) 09/07/2011 Mitral valve disorders(424.0) Mixed hyperlipidemia 11/29/2005 Neural foraminal stenosis of cervical spine 03/21/2022 Mod-sever on the left Neutropenia, drug-induced 08/11/2011 Nonrheumatic aortic valve stenosis 06/13/2024 Seeing Cardio: Dr. Colon Obesity Over weight 10/17/2023 Plantar fasciitis 11/24/2013 Primary insomnia 07/06/2021 Right-sided chest wall pain 10/05/2017 Secondary to breast cancer radiation. RSD (reflex sympathetic dystrophy) Sebaceous cyst 01/20/2014 Spinal stenosis, unspecified region other than cervical 03/02/2006 Tear of left glenoid labrum 04/16/2023 Trigger ring finger of right hand 06/23/2014 Vitamin D deficiency 09/15/2019 PAST SURGICAL HISTORY Procedure Laterality Date ADENOIDECTOMY PRIMARY <AGE 14 Adenoidectomy BREAST BIOPSY CORE 04/11/2011 right breast 2:00, 4:00 and 10:00 BREAST BIOPSY INCISIONAL 14 years ago right and left breast- benign BREAST RECONSTRUC W FREE FLAP 12/13/2012 bilateral breast BREAST RECONSTRUC W TISS EXPANDR 05/25/2011 right breast with elevation of the serratus flap CARDIAC CATH 03/20/2017 normal, by Dr. Colvin COLONOSCOPY 01/03/2024 repeat 3 years COLONOSCOPY FLX DX W/COLLJ SPEC WHEN PFRMD 04/08/2007 COLONOSCOPY FLX DX W/COLLJ SPEC WHEN PFRMD N/A 09/06/2016 MAC COLONOSCOPY FLX DX W/COLLJ SPEC WHEN PFRMD 02/10/2019 Colonoscopy INSJ TUNNELED CTR VAD W/SUBQ PORT AGE 5 YR/> 07/06/2011 left IJ MASTECTOMY, SIMPLE, COMPLETE 05/25/2011 right breast skin-sparing with SLND/level 1 LND MASTECTOMY, SIMPLE, COMPLETE 12/13/2012 prophylactic left breast PAST SURGICAL HISTORY OF squamous cell skin ca nose, lips, face PAST SURGICAL HISTORY OF 1972 removal of sweat glands (bilateral axilla (right x 2)and groin) PAST SURGICAL HISTORY OF 03/06/2016 removal of polyp at [facility] [employer] COVID-19 VACCINE, AGE 12+ YR (PURPLE TOP) 09/11/2020 first vaccine REM LESION TRUNK,ARM, LEG <0.5 CM 01/24/2014 Exc. deyanira cyst left inframammary REPAIR ROTATOR CUFF,ACUTE Left 07/02/2023 RMVL MOISES CTR VAD W/SUBQ PORT/BUHR MILL OPERATOR CTR/PRPH INSJ 01/18/2012 Removal left IJ port RPR COMPLEX RETINA DETACH VITRECT &MEMBRANE PEEL 09/2014 left retina SIGMOIDOSCOPY FLX DX W/COLLJ SPEC BR/WA IF PFRMD 01/27/2002 Sigmoidoscopy TONSILLECTOMY PRIMARY/SECONDARY <AGE 12 Tonsillectomy ALLERGIES Typhoid Vaccine, Adhesive Tape (Rosins), Cats, Diclofenac, Dogs, Dust, Meloxicam, Mold, and Tegretol [Carbamazepine Analogues] MEDICATIONS clobetasol (TEMOVATE) 0.05 % ointment Apply 1 application to affected area two times a day. pioglitazone (ACTOS) 15 mg tablet Take 2 tablets by mouth once daily. metoprolol succinate ER (TOPROL XL) 25 mg 24 hr tablet Take 1 tablet by mouth once daily. levothyroxine (SYNTHROID) 100 mcg tablet Take 1 tablet by mouth daily before breakfast. amitriptyline (ELAVIL) 25 mg tablet Take 2 tablets by mouth daily at bedtime. atorvastatin (LIPITOR) 80 mg tablet Take 1 tablet by mouth once daily. VENTOLIN HFA 90 mcg/actuation inhaler Inhale 2 Puffs as instructed every 4 hours as needed for wheezing/shortness of breath. VENTOLIN HFA 90 mcg/actuation inhaler Inhale 2 Puffs as instructed every 4 hours as needed. (Patient not taking: Reported on 11/21/2024) fluticasone-salmeterol (ADVAIR, WIXELA) 250-50 mcg/dose inhaler Inhale 1 Puff as instructed two times a day. (Patient not taking: Reported on 11/21/2024) acetaminophen (TYLENOL) 500 mg tablet Take 1,000 mg by mouth at bedtime as needed. COMPOUNDED PRESCRIPTION NEBULIZER and supplies FOR HOME USE. DX: J45.30, J45.90. Length of need is life. This is a medically necessary devise for management of patients lung disease. Current machine recently stopped working. While trying to use it started to smoke and stopped. FAMILY HISTORY Problem Relation Age of Onset Breast Cancer Mother dx in her 50's other (uterine cancer) Mother dx before breast cancer Aneurysm Mother Brain Heart Father MT, valve disorder Headache Sister other (other cances) Sister no known family h/o: ovarian; prostate, colon, pancreatic, lung, thyroid, brain, melenoma, leukemia, sarcomas No Known Problems Maternal Grandmother Heart Attack Maternal Grandfather other (rectal cancer) Paternal Grandmother 95 Colon Cancer Paternal Grandmother No Known Problems Paternal Grandfather No Known Problems Daughter Heart Son Breast Cancer Maternal Aunt 1) details unknown Breast Cancer Maternal Aunt 2) details unknown Social History Tobacco Use Smoking status: Former Current packs/day: 0.00 Average packs/day: 2.0 packs/day for 12.0 years (24.0 ttl pk-yrs) Types: Cigarettes Start date: 06/25/1969 Quit date: 06/25/1981 Years since quittin.4 Smokeless tobacco: Never Vaping Use Vaping status: Never Used Substance Use Topics Alcohol use: Yes Alcohol/week: 7.0 standard drinks of alcohol Types: 7 Glasses of wine per week Comment: wine with meals Drug use: No BP 112/68 Pulse 78 Temp 36.2 C (97.1 F) Resp 18 Wt 92 kg (202 lb 13.2 oz) LMP 01/06/2009 SpO2 98% BMI 30.85 kg/m Review of Systems Constitutional: Positive for malaise/fatigue. Negative for chills and fever. HENT: Positive for congestion and sore throat. Negative for ear discharge, ear pain and sinus pain. Eyes: Negative for blurred vision, pain, discharge and redness. Respiratory: Positive for cough and sputum production. Negative for hemoptysis, shortness of breath, wheezing and stridor. Cardiovascular: Negative for chest pain. Gastrointestinal: Negative for abdominal pain, diarrhea, nausea and vomiting. Musculoskeletal: Positive for myalgias. Skin: Negative for itching and rash. Neurological: Positive for headaches. Negative for dizziness. Objective Physical Exam Constitutional: General: She is not in acute distress. Appearance: She is not diaphoretic. HENT: Head: Normocephalic. Jaw: No trismus, tenderness, swelling or pain on movement. Nose: Congestion present. Mouth/Throat: Mouth: Mucous membranes are moist. Pharynx: Oropharynx is clear. Uvula midline. No pharyngeal swelling, oropharyngeal exudate, posterior oropharyngeal erythema or uvula swelling. Eyes: Conjunctiva/sclera: Conjunctivae normal. Pupils: Pupils are equal, round, and reactive to light. Cardiovascular: Rate and Rhythm: Normal rate and regular rhythm. Heart sounds: Normal heart sounds. Pulmonary: Effort: Pulmonary effort is normal. No tachypnea, accessory muscle usage or respiratory distress. Breath sounds: No stridor. Wheezing present. No rhonchi or rales. Musculoskeletal: Cervical back: Normal range of motion and neck supple. No edema, erythema, rigidity or tenderness. No pain with movement. Normal range of motion. Lymphadenopathy: Cervical: No cervical adenopathy. Skin: General: Skin is warm and dry. Neurological: Mental Status: She is alert and oriented to person, place, and time. ASSESSMENT/PLAN: 1. Mild intermittent asthma with acute exacerbation (HCC) - ICD9: 493.92, ICD10: J45.21 Diagnosed with asthma exacerbation. Placed on doxycycline and prednisone. Patient was educated on supportive therapies. Patient will follow up with primary care provider as needed. Patient was instructed to immediately proceed to emergency room for any new, worsening, or symptoms lasting longer than anticipated. The patient's clinical presentation is otherwise unremarkable at this time. Based on exam and clinical finding, the patient is stable for discharge. Plan of care was discussed with patient. Patient verbalizes understanding and agrees to plan of care. This note was generated using [employer] software. It may contain errors in wording, punctuation, or spelling. Liam Gonzales APRN.ABI documented in this encounter [facility] 11-12-2024 Note HNO ID: [id number] Author: RAMAN MACIEL APRN.ABI Service: ? 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 Montserrat is a 74 year old who presents for an annual gynecologic exam without complaints. History of mastectomy. History of breast cancer. History of LS, controlled with Clobetasol. Postmenopausal: Yes since age 54. Denies bleeding or pelvic pain. HRT use: No. Last pap smear: 09/30/2020 normal with negative HPV History of abnormal pap: No Last mammogram: 01/16/2024 normal with follow up in one year. History of abnormal mammogram: Yes , hx of breast cancer OB History Gravida2 Para2 Term2 Preterm0 AB0 Living2 SAB0 IAB0 Ectopic0 Multiple0 Live Births0 Comment: menarche age 17; afb 37; natural menopause age 60 2 vaginal deliveries Box [employer] Br[employer] History LMP: 01/06/2009, Postmenopausal Age at Menarche: Age at First : Age at Menopause: Box Car Bracer History Comments: Sexual Activity: Not Currently; Male; prostate cancer Contraception: No contraception data on record PAST MEDICAL HISTORY Diagnosis Date Acquired hypothyroidism 11/29/2005 Bilateral carotid artery stenosis 07/13/2021 US: 06/2021: Stephen 20-40% 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, right (HCC) 10/05/2017 Cataracts, bilateral 12/20/2016 Some relation to steroids with her asthma. 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 Incomplete tear of left rotator cuff 04/16/2023 Internal hemorrhoids without mention of complication Irritable bowel syndrome with both constipation and diarrhea 07/28/2020 Labral tear of long head of left biceps tendon 04/16/2023 Lichen sclerosus Living will in place 01/04/2022 DPA: Deshawn () Mass of left lower leg 07/03/2018 Benign w/u Metabolic syndrome 04/19/2016 Mild persistent asthma (HCC) 09/07/2011 Mitral valve disorders(424.0) Mixed hyperlipidemia 11/29/2005 Neural foraminal stenosis of cervical spine 03/21/2022 Mod-sever on the left Neutropenia, drug-induced 08/11/2011 Nonrheumatic aortic valve stenosis 06/13/2024 Seeing Cardio: Dr. Colon Obesity Over weight 10/17/2023 Plantar fasciitis 11/24/2013 Primary insomnia 07/06/2021 Right-sided chest wall pain 10/05/2017 Secondary to breast cancer radiation. RSD (reflex sympathetic dystrophy) Sebaceous cyst 01/20/2014 Spinal stenosis, unspecified region other than cervical 03/02/2006 Tear of left glenoid labrum 04/16/2023 Trigger ring finger of right hand 06/23/2014 Vitamin D deficiency 09/15/2019 PAST SURGICAL HISTORY Procedure Laterality Date ADENOIDECTOMY PRIMARY Adenoidectomy BREAST BIOPSY CORE 04/11/2011 right breast 2:00, 4:00 and 10:00 BREAST BIOPSY INCISIONAL 14 years ago right and left breast- benign BREAST RECONSTRUC W FREE FLAP 12/13/2012 bilateral breast BREAST RECONSTRUC W TISS EXPANDR 05/25/2011 right breast with elevation of the serratus flap CARDIAC CATH 03/20/2017 normal, by Dr. Colvin COLONOSCOPY 01/03/2024 repeat 3 years COLONOSCOPY FLX DX W/COLLJ SPEC WHEN PFRMD 04/08/2007 COLONOSCOPY FLX DX W/COLLJ SPEC WHEN PFRMD N/A 09/06/2016 MAC COLONOSCOPY FLX DX W/COLLJ SPEC WHEN PFRMD 02/10/2019 Colonoscopy INSJ TUNNELED CTR VAD W/SUBQ PORT AGE 5 YR/> 07/06/2011 left IJ MASTECTOMY, SIMPLE, COMPLETE 05/25/2011 right breast skin-sparing with SLND/level 1 LND MASTECTOMY, SIMPLE, COMPLETE 12/13/2012 prophylactic left breast PAST SURGICAL HISTORY OF squamous cell skin ca nose, lips, face PAST SURGICAL HISTORY OF 1972 removal of sweat glands (bilateral axilla (right x 2)and groin) PAST SURGICAL HISTORY OF 03/06/2016 removal of polyp at [facility] [employer] COVID-19 VACCINE, AGE 12+ YR (PURPLE TOP) 09/11/2020 first vaccine REM LESION TRUNK,ARM, LEG <0.5 CM 01/24/2014 Exc. deyanira cyst left inframammary REPAIR ROTATOR CUFF,ACUTE Left 07/02/2023 RMVL [facility]ISES CTR VAD W/SUBQ PORT/BUHR MILL OPERATOR CTR/PRPH INSJ 01/18/2012 Removal left IJ port RPR COMPLEX RETINA DETACH VITRECT ANDMEMBRANE PEEL 09/2014 left retina SIGMOIDOSCOPY FLX DX W/COLLJ SPEC BR/WA IF PFRMD 01/27/2002 Sigmoidoscopy TONSILLECTOMY PRIMARY/SECONDARY Tonsillectomy FAMILY HISTORY Problem Relation Age of Onset Breast Cancer Mother dx in her 50's other (uterine cancer) Mother dx before breast cancer Aneurysm Mother Brain Heart Father MT, valve disorder Headache Sister other (other cances) (more content not included)... [facility] 10-29-2024 Instructions Liam Wilkins MD - 10/29/2024 8:44 AM EDT Restart the pioglitazone 30 mg a day Please get labs and urine test done on or after 04/17/2025 prior to your next visit. Screening schedule The following prevention plan is recommended: Depression Screening Never done Covid-19 Vaccine( season) due on 06/14/2024 Advance Directive Discussion due on 06/25/2024 WHAT YOU CAN DO TO PREVENT FALLS Many falls can be prevented. By making some changes, you can lower your chances of falling. Four things YOU can do to prevent falls for you* and your caregiver 1. Begin a regular exercise program Exercise is one of the most important ways to lower your chances of falling. It makes you stronger and helps you feel better. Exercises that improve balance and coordination (like Elias Chi) are the most helpful. Lack of exercise leads to weakness and increases your chances of falling. Ask your doctor or health care provider about the best type of exercise program for you. 2. Have your health care provider review your medicines Have your doctor or pharmacist review all the medicines you take, even [id number] medicines. As you get older, the way medicines work in your body can change. Some medicines, or combinations of medicines, can make you sleepy or dizzy and can cause you to fall. 3. Have your vision checked Have your eyes checked by an eye doctor at least once a year. You may be wearing the wrong glasses or have a condition like glaucoma or cataracts that limits your vision. Poor vision can increase your chances of falling. 4. Make your home safer About half of all falls happen at home. To make your home safer: Remove things you can trip over (like papers, books, clothes, and shoes) from stairs and places where you walk. Remove small throw rugs or use double-sided tape to keep the rugs from slipping. Keep items you use often in cabinets you can reach easily without using a step stool. Have grab bars put in next to your toilet and in the tub or shower. Use non-slip mats in the bathtub and on shower floors. Improve the lighting in your home. As you get older, you need brighter lights to see well. Hang light-weight curtains or shades to reduce glare. Have handrails and lights put in on all staircases. Wear shoes both inside and outside the house. Avoid going barefoot or wearing slippers. For more information, contact: Centers for Disease Control and Prevention www.cdc.gov/injury * This information may not apply if you have certain medical conditions. documented in this encounter [facility] 10-29-2024 History of Present illness Narrative Images from the original note were not included. Montserrat Aguayo is a 74 year old female here for a Medicare wellness visit. Medicare Health Risk Assessment General Health Good Exercise: Minutes/Day 30 min Exercise: Days/Week 4 days Alcohol: Daily Use declined Alcohol: Drinks/Day 3 or 4 Alcohol: 6 or more drinks Never Feel off balance No Concerns: Teeth/Dentures No Concerns: Sexual function No Troubled by feelings Anxious; Stressed; Angry Frequency: Eating healthy diet Several days ADLs requiring help None of the above Safety precautions in home/vehicle No Smoke, vape, chews tobacco No Difficulty hearing No Difficulty seeing No Current Providers Specialists: I have reviewed specialist-related care of the patient in the medical record. Current care team: Patient Care Team: Liam Wilkins MD as PCP - General (Family Medicine) Jojo Anderson APRN.INTEL RECRUITER as [facility]anner Painter (Family Medicine) Obdulia Rowley PA-C as [facility] Painter (Family Medicine) Medical/Family history review Reviewed and updated problem list, medical/surgical/family/social history, medications, and allergies. Opioid use review Opioid Medications (last 90 days) No data to display Anxiety/Depression screening PHQ-2 Score: 0 (Lower risk for depression) Recommendation: no further intervention at this time Cognitive screening Score: 4 Cognitive screening reviewed and No further action needed (score 3-5). Functional Observation Was the patient's Timed Up & Go test unsteady or >= 12 seconds? No Advance Care Planning Surrogate decision maker documented and/or advance directives scanned in chart Measurements BP 118/72 Pulse 64 Resp 16 Ht 172.7 cm (5' 8) Wt 91.6 kg (202 lb) LMP 01/06/2009 BMI 30.71 kg/m Vision Screening: Follows with optometry/ophthalmology Assessment/Plan See below Chief Complaint Patient presents with: Medicare Wellness Exam HPI Montserrat Aguayo is a 74 year old female who presents here today for Chronic Medical Conditions. and Medicare Annual Visit. Patient is here today with hx of Hypothyroidism, elevated A1c, GERD, hyperlipidemia, RSD, Vit D def, mild persistent asthma, Hx of breast cancer on the right side, obisity as well as those reviewed and addressed below Patient Ophthalmology last visit 08/2024 Patient sees COSMETIC MANAGER next visit 10/2024 patient has [place] having increased stress with family and work at the [employer]. Past medical history, appointments, medications, allergies reviewed. Previous Medical History PAST MEDICAL HISTORY Diagnosis Date Acquired hypothyroidism 11/29/2005 Bilateral carotid artery stenosis 07/13/2021 US: 06/2021: Stephen 20-40% 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, right (HCC) 10/05/2017 Cataracts, bilateral 12/20/2016 Some relation to steroids with her asthma. 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 Incomplete tear of left rotator cuff 04/16/2023 Internal hemorrhoids without mention of complication Irritable bowel syndrome with both constipation and diarrhea 07/28/2020 Labral tear of long head of left biceps tendon 04/16/2023 Lichen sclerosus Living will in place 01/04/2022 DPA: Deshawn () Mass of left lower leg 07/03/2018 Benign w/u Metabolic syndrome 04/19/2016 Mild persistent asthma 09/07/2011 Mitral valve disorders(424.0) Mixed hyperlipidemia 11/29/2005 Neural foraminal stenosis of cervical spine 03/21/2022 Mod-sever on the left Neutropenia, drug-induced (HCC) 08/11/2011 Nonrheumatic aortic valve stenosis 06/13/2024 Seeing Cardio: Dr. Colon Obesity Over weight 10/17/2023 Plantar fasciitis 11/24/2013 Primary insomnia 07/06/2021 Right-sided chest wall pain 10/05/2017 Secondary to breast cancer radiation. RSD (reflex sympathetic dystrophy) Sebaceous cyst 01/20/2014 Spinal stenosis, unspecified region other than cervical 03/02/2006 Tear of left glenoid labrum 04/16/2023 Trigger ring finger of right hand 06/23/2014 Vitamin D deficiency 09/15/2019 Previous Surgical History PAST SURGICAL HISTORY Procedure Laterality Date ADENOIDECTOMY PRIMARY <AGE 14 Adenoidectomy BREAST BIOPSY CORE 04/11/2011 right breast 2:00, 4:00 and 10:00 BREAST BIOPSY INCISIONAL 14 years ago right and left breast- benign BREAST RECONSTRUC W FREE FLAP 12/13/2012 bilateral breast BREAST RECONSTRUC W TISS EXPANDR 05/25/2011 right breast with elevation of the serratus flap CARDIAC CATH 03/20/2017 normal, by Dr. Colvin COLONOSCOPY 01/03/2024 repeat 3 years COLONOSCOPY FLX DX W/COLLJ SPEC WHEN PFRMD 04/08/2007 COLONOSCOPY FLX DX W/COLLJ SPEC WHEN PFRMD N/A 09/06/2016 MAC COLONOSCOPY FLX DX W/COLLJ SPEC WHEN PFRMD 02/10/2019 Colonoscopy INSJ TUNNELED CTR VAD W/SUBQ PORT AGE 7 YR/> 07/06/2011 left IJ MASTECTOMY, SIMPLE, COMPLETE 05/25/2011 right breast skin-sparing with SLND/level 1 LND MASTECTOMY, SIMPLE, COMPLETE 12/13/2012 prophylactic left breast PAST SURGICAL HISTORY OF squamous cell skin ca nose, lips, face PAST SURGICAL HISTORY OF 1972 removal of sweat glands (bilateral axilla (right x 2)and groin) PAST SURGICAL HISTORY OF 03/06/2016 removal of polyp at [facility] COVID-19 VACCINE, AGE 12+ YR (PURPLE TOP) 09/11/2020 first vaccine REM LESION TRUNK,ARM, LEG <0.5 CM 01/24/2014 Exc. deyanira cyst left inframammary REPAIR ROTATOR CUFF,ACUTE Left 07/02/2023 RMVL MOISES CTR VAD W/SUBQ PORT/BUHR MILL OPERATOR CTR/PRPH INSJ 01/18/2012 Removal left IJ port RPR COMPLEX RETINA DETACH VITRECT &MEMBRANE PEEL 09/2014 left retina SIGMOIDOSCOPY FLX DX W/COLLJ SPEC BR/WA IF PFRMD 01/27/2002 Sigmoidoscopy TONSILLECTOMY PRIMARY/SECONDARY <AGE 12 Tonsillectomy Family History FAMILY HISTORY Problem Relation Age of Onset Breast Cancer Mother dx in her 50's other (uterine cancer) Mother dx before breast cancer Aneurysm Mother Brain Heart Father MT, valve disorder Headache Sister other (other cances) Sister no known family h/o: ovarian; prostate, colon, pancreatic, lung, thyroid, brain, melenoma, leukemia, sarcomas No Known Problems Maternal Grandmother Heart Attack Maternal Grandfather other (rectal cancer) Paternal Grandmother 95 Colon Cancer Paternal Grandmother No Known Problems Paternal Grandfather No Known Problems Daughter Heart Son Breast Cancer Maternal Aunt 1) details unknown Breast Cancer Maternal Aunt 2) details unknown Patient Allergies ALLERGIES Allergen Reactions Typhoid Vaccine Intolerance Adhesive Tape (Haley* Other: See Comments after 2 days area becomes red and itches Cats Intolerance Diclofenac Other: See Comments elevated liver enz Dogs Intolerance Dust Intolerance Meloxicam Other: See Comments Swollen eyelids Mold Intolerance Tegretol [Carbamaze* Intolerance blood problem Current Medications Current Outpatient Medications on File Prior to Visit Medication Sig metoprolol succinate ER (TOPROL XL) 25 mg 24 hr tablet Take 1 tablet by mouth once daily. levothyroxine (SYNTHROID) 100 mcg tablet Take 1 tablet by mouth daily before breakfast. amitriptyline (ELAVIL) 25 mg tablet Take 2 tablets by mouth daily at bedtime. atorvastatin (LIPITOR) 80 mg tablet Take 1 tablet by mouth once daily. VENTOLIN HFA 90 mcg/actuation inhaler Inhale 2 Puffs as instructed every 4 hours as needed for wheezing/shortness of breath. VENTOLIN HFA 90 mcg/actuation inhaler Inhale 2 Puffs as instructed every 4 hours as needed. clobetasol (TEMOVATE) 0.05 % ointment Apply 1 application to affected area two times a day. TO AFFECTED AREA. fluticasone-salmeterol (ADVAIR, WIXELA) 250-50 mcg/dose inhaler Inhale 1 Puff as instructed two times a day. acetaminophen (TYLENOL) 500 mg tablet Take 1,000 mg by mouth at bedtime as needed. albuterol (PROVENTIL) 2.5 mg /3 mL (0.083 %) nebulizer solution inhale 3 milliliters in nebulizer every 4 hours if needed for wheezing /SHORTNESS OF BREATH. USE OVER 5 -15 MINUTES COMPOUNDED PRESCRIPTION NEBULIZER and supplies FOR HOME USE. DX: J45.30, J45.90. Length of need is life. This is a medically necessary devise for management of patients lung disease. Current machine recently stopped working. While trying to use it started to smoke and stopped. (Patient taking differently: NEBULIZER and supplies FOR HOME USE. DX: J45.30, J45.90. Length of need is life. This is a medically necessary devise for management of patients lung disease. Current machine recently stopped working. While trying to use it started to smoke and stopped. As needed) No current facility-administered medications on file prior to visit. Social History Social History Tobacco Use Smoking status: Former Current packs/day: 0.00 Average packs/day: 2.0 packs/day for 12.0 years (24.0 ttl pk-yrs) Types: Cigarettes Start date: 06/25/1969 Quit date: 06/25/1981 Years since quittin.3 Smokeless tobacco: Never Vaping Use Vaping status: Never Used Substance Use Topics Alcohol use: Yes Alcohol/week: 7.0 standard drinks of alcohol Types: 7 Glasses of wine per week Comment: wine with meals Drug use: No Review of Symptoms REVIEW OF SYSTEMS GENERAL: No weight loss, malaise or fevers HEENT: Negative for frequent or significant headaches, No changes in hearing or vision, no nose bleeds or other nasal problems. Just her typical allergy symptoms NECK: Negative for lumps, goiter, pain and significant neck swelling RESPIRATORY: Negative for cough, hemoptysis, wheezing, COPD, dyspnea or shortness of breath CARDIOVASCULAR: Negative for chest pain, leg swelling, hypertension, CHF or palpitations GI: No nausea, vomiting, or increased diarrhea and No heartburn or reflux symptoms. No blood : No history of dysuria, frequency or blood MUSCULOSKELETAL: Negative for joint pain or swelling, back pain or muscle pain SKIN: Negative for lesions, rash, and itching PSYCH: Negative for sleep disturbance, mood disorder. Some recent stress but feels she is doing fine. HEMATOLOGY/LYMPHOLOGY: Negative for prolonged bleeding, bruising easily or swollen nodes ENDOCRINE: Negative for cold or heat intolerance, polyuria, polydipsia and goiter NEURO: No history of headaches, syncope, paralysis, seizures or tremors EXAM: BP 118/72 Pulse 64 Resp 16 Ht 172.7 cm (5' 8) Wt 91.6 kg (202 lb) LMP 01/06/2009 BMI 30.71 kg/m Last 5 Encounter Wt Readings: Date: Wt: 10/29/2024 91.6 kg (202 lb) 06/16/2024 90.7 kg (200 lb) 04/23/2024 88 kg (194 lb) 02/22/2024 87 kg (191 lb 12.8 oz) 12/26/2023 87.1 kg (192 lb) General Appearance: Well appearing, alert, in no acute distress, well-hydrated, well nourished. and Overweight. Skin: sees derm. Head: Normocephalic, no masses, lesions, tenderness or abnormalities. Eyes: Anicteric sclera. Pupils are equally round and reactive to light. Extraocular movements are intact. Ears: External ears, TM's normal, canals clear. Nose/Sinuses: Nares normal, septum midline, mucosa normal, no drainage or sinus tenderness. Oropharynx: Lips, mucosa, and tongue normal, teeth and gums normal, oropharynx normal. Neck: Supple, no adenopathy; thyroid symmetric, normal size, no bruits. Lungs: Lungs clear to auscultation. No wheezing, rhonchi, rales.. Heart: RRR without murmur, gallop, or rubs. No ectopy. Abdomen: Normal abdominal exam, Abdomen soft, non-tender. Bowel sounds normal. No masses, organomegaly. Extremities: No deformities, edema, skin discoloration, Good capillary refill. . Musculoskeletal: Muscular strength intact, No joint swelling, deformity, or tenderness. Peripheral Pulses: Normal. Neurologic: Gait normal. Reflexes normal and symmetric. Sensation to light touch and crainal nerves 2-12 intact.. Health Maintenance List Depression Screening Never done Covid-19 Vaccine( season) due on 06/14/2024 Advance Directive Discussion due on 06/25/2024 Anxiety Screening due on 04/23/2025 Annual PCP Team Chronic Disease Visit due on 06/16/2025 Colorectal Cancer Screening due on 01/02/2027 Diabetes Screening due on 10/28/2027 Lipid Screening due on 10/27/2029 DTaP,Tdap,Td Vaccine(4 - Td or Tdap) due on 06/10/2030 Bone Density Screening Completed Influenza Vaccine Completed RSV Vaccine Completed Hepatitis C Screening Completed Shingrix Vaccine Completed Pneumococcal Vaccine: 50+ Completed Mammogram Screening Discontinued Cervical Cancer Screening Discontinued Data reviewed Latest Ref Rng 10/04/2023 04/18/2024 06/16/2024 10/27/2024 10/28/2024 WBC 3.70 - 11.00 k/uL 6.00 6.56 RBC 3.90 - 5.20 m/uL 4.39 4.45 Hemoglobin 11.5 - 15.5 g/dL 13.1 13.2 Hematocrit 36.0 - 46.0 % 41.1 41.0 MCV 80.0 - 100.0 fL 93.6 92.1 MCH 26.0 - 34.0 pg 29.8 29.7 MCHC 30.5 - 36.0 g/dL 31.9 32.2 RDW-CV 11.5 - 15.0 % 13.4 13.6 Platelet Count 150 - 400 k/uL 289 303 MPV 9.0 - 12.7 fL 9.9 10.5 Neut% % 58.2 58.4 Abs Neut (ANC) 1.45 - 7.50 k/uL 3.49 3.83 Lymph% % 27.0 29.0 Abs Lymph 1.00 - 4.00 k/uL 1.62 1.90 Mcdowell% % 8.0 8.2 Abs Mcdowell <0.87 k/uL 0.48 0.54 Eosin% % 6.0 3.0 Abs Eosin <0.46 k/uL 0.36 0.20 Baso% % 0.5 1.1 Abs Baso <0.11 k/uL 0.03 0.07 Immature Gran % % 0.3 0.3 IMMATURE GRANS (ABS) <0.10 k/uL <0.03 <0.03 NRBC /100 WBC 0.0 0.0 Absolute nRBC <0.01 k/uL <0.01 <0.01 DTYPE Auto Auto Color Yellow Yellow Yellow Clarity Clear Clear Clear Glucose, Urine Negative Negative Negative Bilirubin, Urine Negative Negative Negative Ketones, Urine Negative Negative Negative Specific [place], Ur 1.005 - 1.030 1.006 1.014 Hemoglobin/Blood,Ur Negative Negative Negative pH, Urine <8.5 7.5 5.5 Protein, Urine Negative Negative Negative Urobilinogen 0.2-1.0 EU/dL 0.2 EU/dL 0.2 EU/dL Nitrites Negative Negative Negative Leukest Negative Trace ! Negative WBC, Urine 0-5 /HPF 0-5 /HPF 0-5 /HPF RBC, Urine 0-2 /HPF 0-2 /HPF 0-2 /HPF Bacteria Negative /HPF Negative Negative Epithelial Cells /HPF None Seen None Seen Hyaline Cast 0 /LPF 0 /LPF 0 /LPF Protein, Total 6.3 - 8.0 g/dL 6.9 7.0 7.4 Albumin 3.9 - 4.9 g/dL 4.4 4.3 4.7 Calcium 8.5 - 10.2 mg/dL 9.5 10.0 Bilirubin, Total 0.2 - 1.3 mg/dL 0.4 0.4 0.4 Alkaline Phosphatase 34 - 123 U/L 80 80 86 AST 13 - 35 U/L 26 32 33 ALT 7 - 38 U/L 19 30 32 Glucose 74 - 99 mg/dL 90 90 BUN 7 - 21 mg/dL 11 14 Creatinine 0.58 - 0.96 mg/dL 0.63 0.80 Sodium 136 - 144 mmol/L 140 140 Potassium 3.7 - 5.1 mmol/L 4.5 5.0 Chloride 98 - 107 mmol/L 103 103 CO2 22 - 30 mmol/L 28 21 (L) Anion Gap 8 - 15 mmol/L 9 16 (H) eGFR >=60 mL/min/1.73m 95 78 Total Cholesterol, Nonfasting <200 mg/dL 174 202 (H) 190 Triglycerides, Nonfasting <150 mg/dL 90 63 177 (H) HDL Cholesterol, Nonfasting >39 mg/dL 71 93 70 LDL Cholesterol Calculated, Nonfasting <100 mg/dL 85 96 90 Non HDL Cholesterol, Nonfasting <130 mg/dL 103 109 120 VLDL Cholesterol, Nonfasting <30 mg/dL 18 13 28 Total Chol/HDL Ratio, Nonfasting <5.10 mg/dL 2.45 2.17 2.71 LDL/HDL Ratio, Nonfasting <2.54 mg/dL 1.20 1.03 1.29 Bilirubin, Direct <0.2 mg/dL <0.2 Hemoglobin A1C 4.3 - 5.6 % 5.3 5.8 (H) 5.5 6.0 (H) Estimated Average Glucose mg/dL 105 120 111 126 Vitamin D 25 Hydroxy 31.0 - 80.0 ng/mL 91.5 (H) 49.2 TSH 0.270 - 4.200 mIU/L 1.030 1.570 1.590 1.080 A/P ASSESSMENT/PLAN: 1. Well adult exam - ICD9: V70.0, ICD10: Z00.00 (primary diagnosis) - Counseled on healthy diet and regular exercise - Patient counseled on and acknowledged vaccine benefits/risks/side effects; VIS provided: COVID-19 - Follow up for annual exam in one year 2. Mixed hyperlipidemia - ICD9: 272.2, ICD10: E78.2 - Controlled - Continue current medications - Counseled on healthy diet and regular exercise 3. Acquired hypothyroidism - ICD9: 244.9, ICD10: E03.9 - Instructed patient on importance of taking on an empty stomach either first thing in the morning or at bedtime. - continue current dose of Synthroid 4. Elevated hemoglobin A1c - ICD9: 790.29, ICD10: R73.09 - will place back on Actos at 30 mg a day. 5. Gastroesophageal reflux disease without esophagitis - ICD9: 530.81, ICD10: K21.9 - controlled with diet. 6. Mild persistent asthma without complication (HCC) - ICD9: 493.90, ICD10: J45.30 - Mild persistent asthma stable - Continue current medications - Avoidance of triggers recommended 7. Nonrheumatic aortic valve stenosis - ICD9: 424.1, ICD10: I35.0 - clinically stable and follows with cardio 8. 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, right (HCC) - ICD9: 174.9, ICD10: C50.911 - s/p mastectomy and follows with CONVEYOR SYSTEM DISPATCHER for management 9. Neutropenia, drug-induced (HCC) - ICD9: 288.03, E980.5, ICD10: D70.2 - recent labs were stable 10. RSD (reflex sympathetic dystrophy) - ICD9: 337.20, ICD10: G90.50 - managed per elavil. 11. Fatty liver - ICD9: 571.8, ICD10: K76.0 FIB-4 Calculation: 1.39 at 10/27/2024 2:10 PM Calculated from: SGOT/AST: 33 U/L at 10/27/2024 2:10 PM SGPT/ALT: 32 U/L at 10/27/2024 2:10 PM Platelets: 303 k/uL at 10/27/2024 2:10 PM Age: 74 years 12. Irritable bowel syndrome with both constipation and diarrhea - ICD9: 564.1, ICD10: K58.2 - stable no changes 13. Advance directive discussed with patient - ICD9: V65.49, ICD10: Z71.89 - up to date 14. Encounter for immunization - ICD9: V03.89, ICD10: Z23 - [employer] COVID-19 VACCINE AGE 12+ YR (COMIRNATY): given 15. Skin cancer screening - ICD9: V76.43, ICD10: Z12.83 - seeing derm 16. Screening for depression - ICD9: V79.0, ICD10: Z13.31 - DEPRESSION SCREENING Requested Prescriptions Signed Prescriptions Disp Refills pioglitazone (ACTOS) 15 mg tablet 90 tablet 1 Sig: Take 2 tablets by mouth once daily. F/u 6 months routine check TSH, Lipid and A1c prior Liam Wilkins MD documented in this encounter [facility] 10-29-2024 Note HNO ID: [id number] Author: LIAM WILKINS MD Service: ? Author Type: Physician Type: Progress Notes Filed: 10/29/2024 09:34 Note Text: Montserrat Aguayo is a 74 year old female here for a Medicare wellness visit. Medicare Health Risk Assessment General Health Good Exercise: Minutes/Day 30 min Exercise: Days/Week 4 days Alcohol: Daily Use declined Alcohol: Drinks/Day 3 or 4 Alcohol: 6 or more drinks Never Feel off balance No Concerns: Teeth/Dentures No Concerns: Sexual function No Troubled by feelings Anxious; Stressed; Angry Frequency: Eating healthy diet Several days ADLs requiring help None of the above Safety precautions in home/vehicle No Smoke, vape, chews tobacco No Difficulty hearing No Difficulty seeing No Current Providers Specialists: I have reviewed specialist-related care of the patient in the medical record. Current care team: Patient Care Team: Liam Wilkins MD as PCP - General (Family Medicine) Jojo Anderson APRN.AIB as Banner Painter (Family Medicine) Obdulia Rowley PA-C as [facility] Painter (Family Medicine) Medical/Family history review Reviewed and updated problem list, medical/surgical/family/social history, medications, and allergies. Opioid use review Opioid Medications (last 90 days) No data to display Anxiety/Depression screening PHQ-2 Score: 0 (Lower risk for depression) Recommendation: no further intervention at this time Cognitive screening Score: 4 Cognitive screening reviewed and No further action needed (score 3-5). Functional Observation Was the patient's Timed Up AND Go test unsteady or >= 12 seconds? No Advance Care Planning Surrogate decision maker documented and/or advance directives scanned in chart Measurements BP 118/72 Pulse 64 Resp 16 Ht 172.7 cm (5' 8) Wt 91.6 kg (202 lb) LMP 01/06/2009 BMI 30.71 kg/m? Vision Screening: Follows with optometry/ophthalmology Assessment/Plan See below Chief Complaint Patient presents with: Medicare Wellness Exam HPI Montserrat Aguayo is a 74 year old female who presents here today for Chronic Medical Conditions. and Medicare Annual Visit. Patient is here today with hx of Hypothyroidism, elevated A1c, GERD, hyperlipidemia, RSD, Vit D def, mild persistent asthma, Hx of breast cancer on the right side, obisity as well as those reviewed and addressed below Patient Ophthalmology last visit 08/2024 Patient sees COSMETIC MANAGER next visit 10/2024 patient has [place] having increased stress with family and work at the [employer]. Past medical history, appointments, medications, allergies reviewed. Previous Medical History PAST MEDICAL HISTORY Diagnosis Date Acquired hypothyroidism 11/29/2005 Bilateral carotid artery stenosis 07/13/2021 US: 06/2021: Stephen 20-40% 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, right (HCC) 10/05/2017 Cataracts, bilateral 12/20/2016 Some relation to steroids with her asthma. 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 Incomplete tear of left rotator cuff 04/16/2023 Internal hemorrhoids without mention of complication Irritable bowel syndrome with both constipation and diarrhea 07/28/2020 Labral tear of long head of left biceps tendon 04/16/2023 Lichen sclerosus Living will in place 01/04/2022 DPA: Deshawn () Mass of left lower leg 07/03/2018 Benign w/u Metabolic syndrome 04/19/2016 Mild persistent asthma 09/07/2011 Mitral valve disorders(424.0) Mixed hyperlipidemia 11/29/2005 Neural foraminal stenosis of cervical spine 03/21/2022 Mod-sever on the left Neutropenia, drug-induced (HCC) 08/11/2011 Nonrheumatic aortic valve stenosis 06/13/2024 Seeing Cardio: Dr. Colon Obesity Over weight 10/17/2023 Plantar fasciitis 11/24/2013 Primary insomnia 07/06/2021 Right-sided chest wall pain 10/05/2017 Secondary to breast cancer radiation. RSD (reflex sympathetic dystrophy) Sebaceous cyst 01/20/2014 Spinal stenosis, unspecified region other than cervical 03/02/2006 Tear of left glenoid labrum 04/16/2023 Trigger ring finger of right hand 06/23/2014 Vitamin D deficiency 09/15/2019 Previous Surgical History PAST SURGICAL HISTORY Procedure Laterality Date ADENOIDECTOMY PRIMARY Adenoidectomy BREAST BIOPSY CORE 04/11/2011 right breast 2:00, 4:00 and 10:00 BREAST BIOPSY INCISIONAL 14 years ago right and left breast- benign BREAST RECONSTRUC W FREE FLAP 12/13/2012 bilateral breast BREAST RECONST (more content not included)... [facility] 10-06-2024 Telephone encounter Note The following approved medication requests have been transmitted electronically. Requested Prescriptions Signed Prescriptions Disp Refills metoprolol succinate ER (TOPROL XL) 25 mg 24 hr tablet 90 tablet 1 Sig: Take 1 tablet by mouth once daily. Authorizing Provider: LIAM WILKINS MD [facility] 10-06-2024 Miscellaneous Notes The following approved medication requests have been transmitted electronically. Requested Prescriptions Signed Prescriptions Disp Refills metoprolol succinate ER (TOPROL XL) 25 mg 24 hr tablet 90 tablet 1 Sig: Take 1 tablet by mouth once daily. Authorizing Provider: LIAM WILKINS MD Prescription Refill Information The patient has been identified by name and date of : Yes Caregiver verified no other encounters exist for this prescription request: Yes Caregiver confirmed with patient/requestor that no other refills are due, in the near future, with this provider at this time: Yes The last office visit in the department: 06-16-24 Does the patient have a future office visit with this provider/department: Yes Requested Prescriptions Pending Prescriptions Disp Refills metoprolol succinate ER (TOPROL XL) 25 mg 24 hr tablet 90 tablet 1 Sig: Take 1 tablet by mouth once daily. Sangeetha Crum October 06, 2024 9:15 AM documented in this encounter [facility] 10-06-2024 Telephone encounter Note Prescription Refill Information The patient has been identified by name and date of : Yes Caregiver verified no other encounters exist for this prescription request: Yes Caregiver confirmed with patient/requestor that no other refills are due, in the near future, with this provider at this time: Yes The last office visit in the department: 06-16-24 Does the patient have a future office visit with this provider/department: Yes Requested Prescriptions Pending Prescriptions Disp Refills metoprolol succinate ER (TOPROL XL) 25 mg 24 hr tablet 90 tablet 1 Sig: Take 1 tablet by mouth once daily. Sangeetha Crum October 06, 2024 9:15 AM [facility] 09-25-2024 Telephone encounter Note The patient has been identified by name and date of : Yes Caregiver verified no other encounters exist for this prescription request: Yes Caregiver confirmed with patient/requestor that no other refills are due, in the near future, with this provider at this time: Yes The last office visit in the department: 06/16/2024 Does the patient have a future office visit with this provider/department: Yes 10/29/2024 Requested Prescriptions Pending Prescriptions Disp Refills levothyroxine (SYNTHROID) 100 mcg tablet 90 tablet 1 Sig: Take 1 tablet by mouth daily before breakfast. Diana Bradley RN [facility] 09-25-2024 Miscellaneous Notes The patient has been identified by name and date of : Yes Caregiver verified no other encounters exist for this prescription request: Yes Caregiver confirmed with patient/requestor that no other refills are due, in the near future, with this provider at this time: Yes The last office visit in the department: 06/16/2024 Does the patient have a future office visit with this provider/department: Yes 10/29/2024 Requested Prescriptions Pending Prescriptions Disp Refills levothyroxine (SYNTHROID) 100 mcg tablet 90 tablet 1 Sig: Take 1 tablet by mouth daily before breakfast. Diana Bradley RN documented in this encounter [facility] 09-22-2024 Note HNO ID: [id number] Author: SABAS PEACOCK LPN Service: ? Author Type: LICENSED NURSE Type: Progress Notes Filed: 09/22/2024 15:15 Note Text: Scan on 09/22/2024 11:22 AM by ProviderJay PA-C: Consultation - Ophthalmology [facility] 09-22-2024 History of Present illness Narrative Scan on 09/22/2024 11:22 AM by ProviderJay PA-C: Consultation - Ophthalmology documented in this encounter [facility] 09-05-2024 Telephone encounter Note Called and let Pt know medication was send in for her. [facility] 09-05-2024 Miscellaneous Notes Called and let Pt know medication was send in for her. Prescription Refill Information The patient has been identified by name and date of : Yes Caregiver verified no other encounters exist for this prescription request: Yes Caregiver confirmed with patient/requestor that no other refills are due, in the near future, with this provider at this time: Yes The last office visit in the department: 04/23/25 Does the patient have a future office visit with this provider/department: Yes 10/29/24 Requested Prescriptions Pending Prescriptions Disp Refills amitriptyline (ELAVIL) 25 mg tablet 180 tablet 1 Sig: Take 2 tablets by mouth daily at bedtime. Philomena Hernández LPN September 05, 2024 9:41 AM Patient called in and is wanting is amitriptyline sent to [facility] [place] Please advise Patient has been identified by name and date of : Yes, Provider Date 09/05/24 Time 08:30AM Patient phones for refill(s): amitriptyline Requested Prescriptions No prescriptions requested or ordered in this encounter Date of last office visit in primary care: Visit date not found Date of next office visit in primary care: Visit date not found Please advise. Thank you. Billie Chris. documented in this encounter [facility] 09-05-2024 Telephone encounter Note Prescription Refill Information The patient has been identified by name and date of : Yes Caregiver verified no other encounters exist for this prescription request: Yes Caregiver confirmed with patient/requestor that no other refills are due, in the near future, with this provider at this time: Yes The last office visit in the department: 04/23/25 Does the patient have a future office visit with this provider/department: Yes 10/29/24 Requested Prescriptions Pending Prescriptions Disp Refills amitriptyline (ELAVIL) 25 mg tablet 180 tablet 1 Sig: Take 2 tablets by mouth daily at bedtime. Philomena Hernández LPN September 05, 2024 9:41 AM [facility] 09-05-2024 Telephone encounter Note Patient called in and is wanting is amitriptyline sent [facility] [place] Please advise Patient has been identified by name and date of : Yes, Provider Date 09/05/24 Time 08:30AM Patient phones for refill(s): amitriptyline Requested Prescriptions No prescriptions requested or ordered in this encounter Date of last office visit in primary care: Visit date not found Date of next office visit in primary care: Visit date not found Please advise. Thank you. Billie Chris. [facility] 08-15-2024 Note HNO ID: [id number] Author: REGINA MCPHERSON MD Service: ? Author Type: Physician Type: Progress Notes Filed: 08/15/2024 14:48 Note Text: PAIN EVALUATION 08/15/2024 1433 Pain Location: Shoulder-Left Description: Aching Frequency: Intermittent Comments: last L-shoulder CSI:02/22/24 Encounter Diagnosis ICD-10-CM 1. Left shoulder pain, unspecified chronicity M25.512 2. S/P shoulder surgery Z98.890 [place] R Olivier returns for left shoulder injection. Had been doing well but hurting more due to need to sleep on that side. Large Joint Arthro/Inj: L shoulder joint 08/15/2024 2:47 PM The procedure site was prepped in the usual sterile fashion. Site: L shoulder joint Medications: 80 mg triamcinolone acetonide 40 mg/mL Anesthetics: 4 mL bupivacaine (PF) 0.25 % (2.5 mg/mL) Outcome: Tolerated well, no immediate complications Post-injection instructions were reviewed with the patient and the patient voiced understanding of these instructions. Regina Mcpherson MD Shoulder AND Elbow Surgeon Department of Orthopaedic Surgery [facility] 08-15-2024 History of Present illness Narrative Associated Order(s): Large Joint Arthro/Inj: L shoulder joint Post-Procedure Diagnose(s): S/P shoulder surgery; Left shoulder pain, unspecified chronicity PAIN EVALUATION 08/15/2024 1433 Pain Location: Shoulder-Left Description: Aching Frequency: Intermittent Comments: last L-shoulder CSI:02/22/24 Encounter Diagnosis ICD-10-CM 1. Left shoulder pain, unspecified chronicity M25.512 2. S/P shoulder surgery Z98.890 [place] R Olivier returns for left shoulder injection. Had been doing well but hurting more due to need to sleep on that side. Large Joint Arthro/Inj: L shoulder joint 08/15/2024 2:47 PM The procedure site was prepped in the usual sterile fashion. Site: L shoulder joint Medications: 80 mg triamcinolone acetonide 40 mg/mL Anesthetics: 4 mL bupivacaine (PF) 0.25 % (2.5 mg/mL) Outcome: Tolerated well, no immediate complications Post-injection instructions were reviewed with the patient and the patient voiced understanding of these instructions. Regina Mcpherson MD Shoulder & Elbow Surgeon Department of Orthopaedic Surgery [facility] documented in this encounter [facility] 08-12-2024 History of Present illness Narrative Program_ID:[id number] Access Code: [email or web address] URL: [email or web address] Date: 08-12-2024 Prepared By: Sherry Bruce Program Notes Patient Education - BPPV - What Is The Vestibular System? - What Is Vestibular Rehab? - BPPV - What Is BPPV? Images from the original note were not included. Episode Visit Count: 1 Therapist That Will Accept/Oversee The Plan Of Care: Sherry Bruce Start of Care Date: 08/12/24 Onset Date: 07/01/24 Plan of Care Certification Date: 08/12/24 Next Certification Due Date: 09/23/24 Patient Identified by Name and Date of : Yes REHABILITATION AND SPORTS THERAPY PHYSICAL THERAPY EVALUATION PLAN OF CARE: Assessment: [place]serrat Aguayo presents with diagnosis of vertigo that interferes with bed mobility . The patient presents with impairments in ADL's, independence in exercise, overall function, patient reported outcome measures, and symptom management. Patient did not complete the PROMIS (Patient Reported Outcome Measures Information System). Prognosis for therapy is Good due to: current objective clinical presentation, good overall health status, acuteness of condition, positive past response to therapy, within-session changes, good support system/ coping skills . The patient will benefit from skilled therapy services to meet the goals established for this plan of care as noted below. Goals for Episode of Care: established 08/12/24 Patient will have negative positional testing for BPPV. Patient will be independent with home exercise program and progression. Patient will return to prior level of function with all activities of daily living with trace reports of dizziness. Patient Goals: resolve vertigo with positional changes Time Frame for Goals and Treatment : 09/23/24 Planned Interventions, Frequency, and Duration: Current Frequency: 1x/week Duration: 6 weeks Total Number of Visits Planned: 6 Planned Treatment Interventions: Therapeutic exercise (64508), Neuromuscular re-education (06432), Manual therapy (04694), Therapeutic activities (81156), Self-retirement management (79710), Gait Training (47371) PLAN FOR NEXT VISIT: pt. to return has needed for BPPV Patient demonstrates good understanding of plan of care and treatment. The above goals and plan of care were discussed and agreed upon by patient/family. SUBJECTIVE: for vertigo (room spinning) that came on with getting up from bed and turning in bed either direction, worst with turning to the R. Symptoms have improved, less intense and still only lasting about 30 sec. Patient Goals: resolve vertigo with positional changes Functional Limitations: bed mobility Prior Level of Function: Independent without limitations Intake Information: Prescription present Previous Treatment: (ED) Falls Interview: No positive findings with falls interview Vestibular Symptoms present for: weeks Symptom onset: sudden Dizziness: Yes Description: spinning (self), vertigo (feels eyes moving) Rating of current symptoms: 0/10 Symptoms worsened by: lying down, rolling left, rolling right, supine to sit Symptoms improved by: being still, closing eyes Imbalance: No Fall Assessment: No falls Nausea: denies Motion Sickness: None Neck Symptoms: Yes (chronic -- unchanging) Jaw Symptoms: No Ear Symptoms: No Hearing Changes: No recent changes Sleeping Position: (unable to sleep on L side or supine) History of Syncope: No Denies: headaches, visual changes, paresthesia, neuropathy, focal weakness, tremors, neurological complaints Reports: dizziness Pain: Pain Pain Level: 0 Post Treatment Pain Post Treatment Pain Level: 0 Post Treatment Symptoms: better- resolved symptoms following 2nd manuever PROMIS Scales 09/11/2023 09/04/2023 07/08/2023 Higher is Better Phys Func - T Score 33 (moderate dysfunction) 35 (moderate dysfunction) Phys Func - Percentile 4 7 Self-Eff Symptom - T Score 41 (Average) 50 (Average) Self-Eff Symptom - Percentile 18 50 Proxy-reported 11/10/2021 Lower is Better Pain Interference - T Score 50 (within normal limits) Pain Interference - Percentile 50 T-scores: mean of general population = 50. 5 points is clinically meaningfully difference Percentiles provide an indication of how the patient's score ranks in relation to the general population. Higher percentile rankings indicate better function/quality of life. 50th percentile is the average of the general population and indicates half of respondents had a worse score. OBJECTIVE MEASURES WITH LEVEL OF FUNCTION: Posture / Alignment Posture: Forward head, Increased thoracic kyphosis Oculomotor Testing Fixation Present Ocular ROM: WNL Positional Testing Right Shweta-Hallpike: Upbeat, Less than 60 seconds, Left Torsional / Counterclockwise, Paroxysmal, With delay Positional Test Comments: symptoms without nystagmus with re-test Gait Gait Observation: unremarkable Education: Education Learning Preferences: Demonstration, Explanation, Performance Learning/educational needs: Plan of Care, Home exercise program Education Provided: Yes, see treatment interventions for education provided Education Provided To: Patient Education Mode/Type: Demonstration, Explanation/Discussion, Literature/Printed Materials, Performance Response to Education/Teach Back: States/Identifies, Return Demonstration TREATMENT: PT Treatment Interventions: Self-[facility] Management, Canalith Repositioning, Neuromuscular Re-Education Evaluation Self-[facility] Management: 1: *Access Code: [email or web address] URL: [email or web address] Date: 08/12/2024 Prepared by: Sherry Lovett Patient Education - BPPV - What Is The Vestibular System? - What Is Vestibular Rehab? - BPPV - What Is BPPV? 2: post procedure precautions: head upright x 2 hours, avoid laying on the R side or elevate the head 3: used inner ear model to education BPPV Skilled Intervention: Skilled judgment in the selection of proper modification for activity of daily living/home management based on clinical presentation, deficits, and needs. Provided written instruction for activities of daily living techniques to facilitate proper performance and compliance. Reviewed patient specific diagnosis in relation to activities of daily living/home management. Activity progression based on professional judgement. Moderate verbal cues for maintaining neutral spine alignment. Provided written instruction for home program to facilitate proper performance and compliance. Correct performance of home program was facilitated with verbal, visual, and tactile cueing. Canalith Repositionin: isis for R canalithiasis 2x Skilled Intervention: Professional judgment was used to determine specific treatment interventions based on assessment of symptoms. Physically assisted patient through each step of repositioning. Verbal and tactile cues provided to patient to assist in moving between each position of maneuver in correct sequence. Patient education including handouts provided regarding self repostitioning techniques to be performed at home. Billing * Evaluation Low Complexity: 1 Unit Self-Care/Home Management Treatment Minutes: 10 * Canalith Repositionin unit Skilled Treatment Time Minutes (timed and untimed codes): 45 Total Session Time (minutes): 45 Session Start Time : 936 Session Stop Time : 1021 Sherry Bruce PT documented in this encounter [facility] 08-12-2024 Note HNO ID: [id number] Author: SHERRY BRUCE PT Service: ? Author Type: Physical Therapist Type: Progress Notes Filed: 08/12/2024 10:28 Note Text: Episode Visit Count: 1 Therapist That Will Accept/Oversee The Plan Of Care: Sherry Bruce Start of Care Date: 08/12/24 Onset Date: 07/01/24 Plan of Care Certification Date: 08/12/24 Next Certification Due Date: 09/23/24 Patient Identified by Name and Date of : Yes REHABILITATION AND SPORTS THERAPY PHYSICAL THERAPY EVALUATION PLAN OF CARE: Assessment: Montserrat Aguayo presents with diagnosis of vertigo that interferes with bed mobility . The patient presents with impairments in ADL's, independence in exercise, overall function, patient reported outcome measures, and symptom management. Patient did not complete the PROMIS? (Patient Reported Outcome Measures Information System). Prognosis for therapy is Good due to: current objective clinical presentation, good overall health status, acuteness of condition, positive past response to therapy, within-session changes, good support system/ coping skills . The patient will benefit from skilled therapy services to meet the goals established for this plan of care as noted below. Goals for Episode of Care: established 08/12/24 Patient will have negative positional testing for BPPV. Patient will be independent with home exercise program and progression. Patient will return to prior level of function with all activities of daily living with trace reports of dizziness. Patient Goals: resolve vertigo with positional changes Time Frame for Goals and Treatment : 09/23/24 Planned Interventions, Frequency, and Duration: Current Frequency: 1x/week Duration: 6 weeks Total Number of Visits Planned: 6 Planned Treatment Interventions: Therapeutic exercise (40471), Neuromuscular re-education (10171), Manual therapy (90258), Therapeutic activities (29687), Self-retirement management (54251), Gait Training (15802) PLAN FOR NEXT VISIT: pt. to return has needed for BPPV Patient demonstrates good understanding of plan of care and treatment. The above goals and plan of care were discussed and agreed upon by patient/family. SUBJECTIVE: for vertigo (room spinning) that came on with getting up from bed and turning in bed either direction, worst with turning to the R. Symptoms have improved, less intense and still only lasting about 30 sec. Patient Goals: resolve vertigo with positional changes Functional Limitations: bed mobility Prior Level of Function: Independent without limitations Intake Information: Prescription present Previous Treatment: (ED) Falls Interview: No positive findings with falls interview Vestibular Symptoms present for: weeks Symptom onset: sudden Dizziness: Yes Description: spinning (self), vertigo (feels eyes moving) Rating of current symptoms: 0/10 Symptoms worsened by: lying down, rolling left, rolling right, supine to sit Symptoms improved by: being still, closing eyes Imbalance: No Fall Assessment: No falls Nausea: denies Motion Sickness: None Neck Symptoms: Yes (chronic -- unchanging) Jaw Symptoms: No Ear Symptoms: No Hearing Changes: No recent changes Sleeping Position: (unable to sleep on L side or supine) History of Syncope: No Denies: headaches, visual changes, paresthesia, neuropathy, focal weakness, tremors, neurological complaints Reports: dizziness Pain: Pain Pain Level: 0 Post Treatment Pain Post Treatment Pain Level: 0 Post Treatment Symptoms: better- resolved symptoms following 2nd manuever PROMIS Scales 09/11/2023 09/04/2023 07/08/2023 Higher is Better Phys Func - T Score 33 (moderate dysfunction) 35 (moderate dysfunction) Phys Func - Percentile 4 7 Self-Eff Symptom - T Score 41 (Average) 50 (Average) Self-Eff Symptom - Percentile 18 50 Proxy-reported 11/10/2021 Lower is Better Pain Interference - T Score 50 (within normal limits) Pain Interference - Percentile 50 T-scores: mean of general population = 50. 5 points is clinically meaningfully difference Percentiles provide an indication of how the patient's score ranks in relation to the general population. Higher percentile rankings indicate better function/quality of life. 50th percentile is the average of the general population and indicates half of respondents had a worse score. OBJECTIVE MEASURES WITH LEVEL OF FUNCTION: Posture / Alignment Posture: Forward head, Increased thoracic kyphosis Oculomotor Testing Fixation Present Ocular ROM: WNL Positional Testing Right Shweta-Hallpike: Upbeat, Less than 60 seconds, Left Torsional / Counterclockwise, Paroxysmal, With delay Positional Test Comments: symptoms without nystagmus with re-test Gait Gait Observation: unremarkable Education: Education Learning Preferences: Demonstration, Explanation, Performance Learning/educational needs: Plan of Care, Home exercise program Education Provided: Yes (more content not included)... [facility] 07-28-2024 Telephone encounter Note Pt notified of results via [employer]. Katia Bhatt Ma [facility] 07-28-2024 Miscellaneous Notes Pt notified of results via [employer]. Katia Bhatt Ma Please let patient know her heart monitor shows PVC and PAC which are benign abnormal beats of the heart. She ccan continue the metoprolol. documented in this encounter [facility] 07-28-2024 Telephone encounter Note Please let patient know her heart monitor shows PVC and PAC which are benign abnormal beats of the heart. She ccan continue the metoprolol. [facility] Work Phone: 07-04-2024 Telephone encounter Note Please assist patient with scheduling with PT. Namrata Clifford MA [facility] 07-04-2024 Miscellaneous Notes Please assist patient with scheduling with PT. Namrata Clifford MA Order placed. Phoned pt and given provider's message below. Pt states the dizziness does happen with position changes and it does feel like everything is spinning around her. Pt agreeable to try vestibular tx with physical therapy. Please place order and have someone call her to schedule appt. Pt asking message be sent to Dr. Wilkins from her: [place] Find out from [place]errat if the dizziness with position changes feels like a spinning feeling. If so the next step would be to get vestibular Tx at PHYSICAL THERAPY. Phoned patient and given provider's message below. Pt reports: 1) Jenna put the heart monitor on her at a nurse visit on 06-23-24. She has been wearing it almost 2 weeks and was instructed to wear it for 1 month. Its a little itchy but its doing ok. 2) Pt has f/u appt with [facility] on 08/22/24 in [place]. Pt agreeable to keep taking the metoprolol. 3) Pt had appt w/Rhoda Anderson on 06/16/24 and discussed the dizziness. Reports provider checked for orthostatic BP and it was negative. Provider thought it could be caused by inner ear thing or dehydration. Pt states she increased her fluid intake but the dizziness is still happening only when she lays down or sits up. Pt is very concerned about this. 4) Pt reports she is receiving an injection in her left shoulder next week on 07-10-24 with [facility] in [place]. Find out if patient made a f/u appt with cardio like ER advised. If not I would advise her to do this and stay on the metoprolol until she sees them. Has she had the event monitor placed and wearing it yet? Script sent. The following approved medication requests have been transmitted electronically. Requested Prescriptions Signed Prescriptions Disp Refills metoprolol succinate ER (TOPROL XL) 25 mg 24 hr tablet 90 tablet 1 Sig: Take 1 tablet by mouth once daily. Authorizing Provider: LIAM WILKINS MD Pt phoned to let Dr. Wilkins know about 2 weeks ago, went to ER because her heart was going crazy and she was dizzy. ER told her she had ventricular something. ER prescribed metoprolol. Pt had appt with Rhoda Anderson, who ordered a heart monitor. Pt is currently wearing the heart monitor. Reports the dizziness is better, but not gone, and now only occurs when she lays down at night. Asking pcp if she needs to keep taking the metoprolol? If yes, please send new Rx to her pharmacy as she needs a refill. documented in this encounter [facility] 07-04-2024 Telephone encounter Note Order placed. [facility] 07-04-2024 Telephone encounter Note Phoned pt and given provider's message below. Pt states the dizziness does happen with position changes and it does feel like everything is spinning around her. Pt agreeable to try vestibular tx with physical therapy. Please place order and have someone call her to schedule appt. Pt asking message be sent to Dr. Wilkins from her: Monyu [facility] 07-03-2024 Telephone encounter Note Find out from [place] if the dizziness with position changes feels like a spinning feeling. If so the next step would be to get vestibular Tx at PHYSICAL THERAPY. [facility] 07-03-2024 Telephone encounter Note Phoned patient and given provider's message below. Pt reports: 1) Jenna put the heart monitor on her at a nurse visit on 06-23-24. She has been wearing it almost 2 weeks and was instructed to wear it for 1 month. Its a little itchy but its doing ok. 2) Pt has f/u appt with [facility] on 08/22/24 in [place]. Pt agreeable to keep taking the metoprolol. 3) Pt had appt w/Rhoda Anderson on 06/16/24 and discussed the dizziness. Reports provider checked for orthostatic BP and it was negative. Provider thought it could be caused by inner ear thing or dehydration. Pt states she increased her fluid intake but the dizziness is still happening only when she lays down or sits up. Pt is very concerned about this. 4) Pt reports she is receiving an injection in her left shoulder next week on 07-10-24 with [facility] in [place]. [facility] 07-02-2024 Telephone encounter Note Find out if patient made a f/u appt with cardio like ER advised. If not I would advise her to do this and stay on the metoprolol until she sees them. Has she had the event monitor placed and wearing it yet? Script sent. The following approved medication requests have been transmitted electronically. Requested Prescriptions Signed Prescriptions Disp Refills metoprolol succinate ER (TOPROL XL) 25 mg 24 hr tablet 90 tablet 1 Sig: Take 1 tablet by mouth once daily. Authorizing Provider: LIAM WILKINS MD [facility] 07-02-2024 Telephone encounter Note Pt phoned to let Dr. Wilkins know about 2 weeks ago, went to ER because her heart was going crazy and she was dizzy. ER told her she had ventricular something. ER prescribed metoprolol. Pt had appt with Rhoda Anderson, who ordered a heart monitor. Pt is currently wearing the heart monitor. Reports the dizziness is better, but not gone, and now only occurs when she lays down at night. Asking pcp if she needs to keep taking the metoprolol? If yes, please send new Rx to her pharmacy as she needs a refill. [facility] 06-23-2024 Telephone encounter Note Pt called and is notified of providers results and instructions. Pt voices understanding. Niesha Mujica RN [facility] 06-23-2024 Miscellaneous Notes Pt called and is notified of providers results and instructions. Pt voices understanding. Niesha Mujica RN Please let patient know that stenosis is something that happens over time and repeating testing this soon is not advised. Annual monitoring is the most frequent we would schedule this test. Also her amount of stenosis is very minimal for her age and is not likely to cause symptoms. Pt stops by office requesting provider reconsider a repeat US. She states every tie she turns her head she feels dizzy and feels this is necessary Please advise Clarisa Solorzano MA Patient returns call and provider message reviewed with verbalized understanding. Audrey Chamberlain RN Left message for patient to return call to office Clarisa Solorzano MA US completed 11/2023. Showed 20-40% stenosis no need for follow up at this time. Pt called and is notified of providers message. Pt voices understanding and was asking if she should have a f/u on the stenosis to see if it has gotten worse. Niesha Mujica RN It could contribute to her dizziness but I do not believe it is the source of all of her symptoms. Pt called in and reports she was ordered a halter monitor by Jojo Anderson FACILITIES OPERATOR for dizziness and PVCs. Pt reports she has stenosis in her neck and she only notices the dizziness when she is laying down on a pillow and putting pressure on her neck. She was wondering if this could be causing the dizziness and heart issues. Pt set up with Jenna Betancourt LPN to place heart monitor. Please call and advise. documented in this encounter [facility] 06-23-2024 Telephone encounter Note Please let patient know that stenosis is something that happens over time and repeating testing this soon is not advised. Annual monitoring is the most frequent we would schedule this test. Also her amount of stenosis is very minimal for her age and is not likely to cause symptoms. [facility] Work Phone: 06-23-2024 Telephone encounter Note Pt stops by office requesting provider reconsider a repeat US. She states every tie she turns her head she feels dizzy and feels this is necessary Please advise Clarisa Solorzano MA [facility] 06-23-2024 Note HNO ID: [id number] Author: EJNNA BETANCOURT LPN Service: ? Author Type: LICENSED NURSE Type: Progress Notes Filed: 06/23/2024 16:23 Note Text: Patient brought cardiac event monitor that was mailed to her. [place] that she needed help applying it to ensure done correctly. Helped set up device, prep area, and apply at this time. Patient tolerated well. Device is reading accurately. Reviewed instruction booklet for when to charge devices, apply replacement pad, and how to return when complete therapy. Also provided with number to call if any further assistance is needed. Pt verbalized understanding of all information. Jenna Betancourt LPN [facility] 06-23-2024 History of Present illness Narrative Patient brought cardiac event monitor that was mailed to her. [place] that she needed help applying it to ensure done correctly. Helped set up device, prep area, and apply at this time. Patient tolerated well. Device is reading accurately. Reviewed instruction booklet for when to charge devices, apply replacement pad, and how to return when complete therapy. Also provided with number to call if any further assistance is needed. Pt verbalized understanding of all information. Jenna Betancourt LPN documented in this encounter [facility] 06-23-2024 Telephone encounter Note Patient returns call and provider message reviewed with verbalized understanding. Audrey Chamberlain RN [facility] 06-23-2024 Telephone encounter Note Left message for patient to return call to office Clarisa Solorzano MA [facility] 06-23-2024 Telephone encounter Note US completed 11/2023. Showed 20-40% stenosis no need for follow up at this time. [facility] 06-23-2024 Telephone encounter Note Pt called and is notified of providers message. Pt voices understanding and was asking if she should have a f/u on the stenosis to see if it has gotten worse. Niesha Mujica RN [facility] 06-23-2024 Telephone encounter Note It could contribute to her dizziness but I do not believe it is the source of all of her symptoms. [facility] 06-23-2024 Telephone encounter Note Pt called in and reports she was ordered a halter monitor by Jojo Anderson FACILITIES OPERATOR for dizziness and PVCs. Pt reports she has stenosis in her neck and she only notices the dizziness when she is laying down on a pillow and putting pressure on her neck. She was wondering if this could be causing the dizziness and heart issues. Pt set up with Jenna Betancourt LPN to place heart monitor. Please call and advise. [facility] 06-17-2024 Telephone encounter Note Patient notified and voiced understanding. Namrata Clifford MA [facility] 06-17-2024 Miscellaneous Notes Patient notified and voiced understanding. Namrata Clifford MA Please let patient know her T3 is slightly low but her TSH and other labs are normal. Continue current levothyroxine dose. documented in this encounter [facility] 06-17-2024 Telephone encounter Note Please let patient know her T3 is slightly low but her TSH and other labs are normal. Continue current levothyroxine dose. [facility] Work Phone: 06-16-2024 Note HNO ID: [id number] Author: JOJO ANDERSON APRN.ABI Service: ? Author Type: Nurse Practitioner Type: Progress Notes Filed: 06/16/2024 15:28 Note Text: Chief Complaint Patient presents with: ER F/U HPI Montserrat Aguayo is a 74 year old female who presents here today for Above Complaints.. Patient presents for ER follow up for irregular heartbeat and dizziness. Patient was seen 06/12 ad was told she may have vertigo as well as PVC's. Past medical history, appointments, medications, allergies reviewed. Previous Medical History PAST MEDICAL HISTORY Diagnosis Date Acquired hypothyroidism 11/29/2005 Bilateral carotid artery stenosis 07/13/2021 US: 06/2021: Stephen 20-40% 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, right (HCC) 10/05/2017 Cataracts, bilateral 12/20/2016 Some relation to steroids with her asthma. 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 Incomplete tear of left rotator cuff 04/16/2023 Internal hemorrhoids without mention of complication Irritable bowel syndrome with both constipation and diarrhea 07/28/2020 Labral tear of long head of left biceps tendon 04/16/2023 Lichen sclerosus Living will in place 01/04/2022 DPA: Deshawn () Mass of left lower leg 07/03/2018 Benign w/u Metabolic syndrome 04/19/2016 Mild persistent asthma 09/07/2011 Mitral valve disorders(424.0) Mixed hyperlipidemia 11/29/2005 Neural foraminal stenosis of cervical spine 03/21/2022 Mod-sever on the left Neutropenia, drug-induced (HCC) 08/11/2011 Nonrheumatic aortic valve stenosis 06/13/2024 Seeing Cardio: Dr. Colon Obesity Over weight 10/17/2023 Plantar fasciitis 11/24/2013 Primary insomnia 07/06/2021 Right-sided chest wall pain 10/05/2017 Secondary to breast cancer radiation. RSD (reflex sympathetic dystrophy) Sebaceous cyst 01/20/2014 Spinal stenosis, unspecified region other than cervical 03/02/2006 Tear of left glenoid labrum 04/16/2023 Trigger ring finger of right hand 06/23/2014 Vitamin D deficiency 09/15/2019 Previous Surgical History PAST SURGICAL HISTORY Procedure Laterality Date ADENOIDECTOMY PRIMARY Adenoidectomy BREAST BIOPSY CORE 04/11/2011 right breast 2:00, 4:00 and 10:00 BREAST BIOPSY INCISIONAL 14 years ago right and left breast- benign BREAST RECONSTRUC W FREE FLAP 12/13/2012 bilateral breast BREAST RECONSTRUC W TISS EXPANDR 05/25/2011 right breast with elevation of the serratus flap CARDIAC CATH 03/20/2017 normal, by Dr. Colvin COLONOSCOPY 01/03/2024 repeat 3 years COLONOSCOPY FLX DX W/COLLJ SPEC WHEN PFRMD 04/08/2007 COLONOSCOPY FLX DX W/COLLJ SPEC WHEN PFRMD N/A 09/06/2016 MAC COLONOSCOPY FLX DX W/COLLJ SPEC WHEN PFRMD 02/10/2019 Colonoscopy INSJ TUNNELED CTR VAD W/SUBQ PORT AGE 5 YR/> 07/06/2011 left IJ MASTECTOMY, SIMPLE, COMPLETE 05/25/2011 right breast skin-sparing with SLND/level 1 LND MASTECTOMY, SIMPLE, COMPLETE 12/13/2012 prophylactic left breast PAST SURGICAL HISTORY OF squamous cell skin ca nose, lips, face PAST SURGICAL HISTORY OF 1972 removal of sweat glands (bilateral axilla (right x 2)and groin) PAST SURGICAL HISTORY OF 03/06/2016 removal of polyp at [facility] [employer] COVID-19 VACCINE, AGE 12+ YR (PURPLE TOP) 09/11/2020 first vaccine REM LESION TRUNK,ARM, LEG <0.5 CM 01/24/2014 Exc. deyanira cyst left inframammary REPAIR ROTATOR CUFF,ACUTE Left 07/02/2023 RMVL MOISES CTR VAD W/SUBQ PORT/BUHR MILL OPERATOR CTR/PRPH INSJ 01/18/2012 Removal left IJ port RPR COMPLEX RETINA DETACH VITRECT ANDMEMBRANE PEEL 09/2014 left retina SIGMOIDOSCOPY FLX DX W/COLLJ SPEC BR/WA IF PFRMD 01/27/2002 Sigmoidoscopy TONSILLECTOMY PRIMARY/SECONDARY Tonsillectomy Family History FAMILY HISTORY Problem Relation Age of Onset Breast Cancer Mother dx in her 50's other (uterine cancer) Mother dx before breast cancer Aneurysm Mother Brain Heart Father MT, valve disorder Headache Sister other (other cances) Sister no known family h/o: ovarian; prostate, colon, pancreatic, lung, thyroid, brain, melenoma, leukemia, sarcomas No Known Problems Maternal Grandmother Heart Attack Maternal Grandfather other (rectal cancer) Paternal Grandmother 95 Colon Cancer Paternal Grandmother No Known Problems Paternal Grandfather No Known Problems Daughter Heart Son Breast Cancer Maternal Aunt 1) details unknown Breast Cancer Maternal Aunt 2) details unknown Patient Allergies ALLERGIES All (more content not included)... [facility] 06-16-2024 History of Present illness Narrative Chief Complaint Patient presents with: ER F/U HPI Montserrat Aguayo is a 74 year old female who presents here today for Above Complaints.. Patient presents for ER follow up for irregular heartbeat and dizziness. Patient was seen 06/12 ad was told she may have vertigo as well as PVC's. Past medical history, appointments, medications, allergies reviewed. Previous Medical History PAST MEDICAL HISTORY Diagnosis Date Acquired hypothyroidism 11/29/2005 Bilateral carotid artery stenosis 07/13/2021 US: 06/2021: Stephen 20-40% 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, right (HCC) 10/05/2017 Cataracts, bilateral 12/20/2016 Some relation to steroids with her asthma. 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 Incomplete tear of left rotator cuff 04/16/2023 Internal hemorrhoids without mention of complication Irritable bowel syndrome with both constipation and diarrhea 07/28/2020 Labral tear of long head of left biceps tendon 04/16/2023 Lichen sclerosus Living will in place 01/04/2022 DPA: Deshawn () Mass of left lower leg 07/03/2018 Benign w/u Metabolic syndrome 04/19/2016 Mild persistent asthma 09/07/2011 Mitral valve disorders(424.0) Mixed hyperlipidemia 11/29/2005 Neural foraminal stenosis of cervical spine 03/21/2022 Mod-sever on the left Neutropenia, drug-induced (HCC) 08/11/2011 Nonrheumatic aortic valve stenosis 06/13/2024 Seeing Cardio: Dr. Colon Obesity Over weight 10/17/2023 Plantar fasciitis 11/24/2013 Primary insomnia 07/06/2021 Right-sided chest wall pain 10/05/2017 Secondary to breast cancer radiation. RSD (reflex sympathetic dystrophy) Sebaceous cyst 01/20/2014 Spinal stenosis, unspecified region other than cervical 03/02/2006 Tear of left glenoid labrum 04/16/2023 Trigger ring finger of right hand 06/23/2014 Vitamin D deficiency 09/15/2019 Previous Surgical History PAST SURGICAL HISTORY Procedure Laterality Date ADENOIDECTOMY PRIMARY <AGE 14 Adenoidectomy BREAST BIOPSY CORE 04/11/2011 right breast 2:00, 4:00 and 10:00 BREAST BIOPSY INCISIONAL 14 years ago right and left breast- benign BREAST RECONSTRUC W FREE FLAP 12/13/2012 bilateral breast BREAST RECONSTRUC W TISS EXPANDR 05/25/2011 right breast with elevation of the serratus flap CARDIAC CATH 03/20/2017 normal, by Dr. Colvin COLONOSCOPY 01/03/2024 repeat 3 years COLONOSCOPY FLX DX W/COLLJ SPEC WHEN PFRMD 04/08/2007 COLONOSCOPY FLX DX W/COLLJ SPEC WHEN PFRMD N/A 09/06/2016 MAC COLONOSCOPY FLX DX W/COLLJ SPEC WHEN PFRMD 02/10/2019 Colonoscopy INSJ TUNNELED CTR VAD W/SUBQ PORT AGE 5 YR/> 07/06/2011 left IJ MASTECTOMY, SIMPLE, COMPLETE 05/25/2011 right breast skin-sparing with SLND/level 1 LND MASTECTOMY, SIMPLE, COMPLETE 12/13/2012 prophylactic left breast PAST SURGICAL HISTORY OF squamous cell skin ca nose, lips, face PAST SURGICAL HISTORY OF 1972 removal of sweat glands (bilateral axilla (right x 2)and groin) PAST SURGICAL HISTORY OF 03/06/2016 removal of polyp at [facility] [employer] COVID-19 VACCINE, AGE 12+ YR (PURPLE TOP) 09/11/2020 first vaccine REM LESION TRUNK,ARM, LEG <0.5 CM 01/24/2014 Exc. deyanira cyst left inframammary REPAIR ROTATOR CUFF,ACUTE Left 07/02/2023 RMVL MOISES CTR VAD W/SUBQ PORT/BUHR MILL OPERATOR CTR/PRPH INSJ 01/18/2012 Removal left IJ port RPR COMPLEX RETINA DETACH VITRECT &MEMBRANE PEEL 09/2014 left retina SIGMOIDOSCOPY FLX DX W/COLLJ SPEC BR/WA IF PFRMD 01/27/2002 Sigmoidoscopy TONSILLECTOMY PRIMARY/SECONDARY <AGE 14 Tonsillectomy Family History FAMILY HISTORY Problem Relation Age of Onset Breast Cancer Mother dx in her 50's other (uterine cancer) Mother dx before breast cancer Aneurysm Mother Brain Heart Father MT, valve disorder Headache Sister other (other cances) Sister no known family h/o: ovarian; prostate, colon, pancreatic, lung, thyroid, brain, melenoma, leukemia, sarcomas No Known Problems Maternal Grandmother Heart Attack Maternal Grandfather other (rectal cancer) Paternal Grandmother 95 Colon Cancer Paternal Grandmother No Known Problems Paternal Grandfather No Known Problems Daughter Heart Son Breast Cancer Maternal Aunt 1) details unknown Breast Cancer Maternal Aunt 2) details unknown Patient Allergies ALLERGIES Allergen Reactions Typhoid Vaccine Intolerance Adhesive Tape (Haley* Other: See Comments after 2 days area becomes red and itches Cats Intolerance Diclofenac Other: See Comments elevated liver enz Dogs Intolerance Dust Intolerance Meloxicam Other: See Comments Swollen eyelids Mold Intolerance Tegretol [Carbamaze* Intolerance blood problem Current Medications Current Outpatient Medications on File Prior to Visit Medication Sig metoprolol succinate ER (TOPROL XL) 25 mg 24 hr tablet Take 25 mg by mouth once daily. atorvastatin (LIPITOR) 80 mg tablet Take 1 tablet by mouth once daily. amitriptyline (ELAVIL) 25 mg tablet Take 2 tablets by mouth daily at bedtime. levothyroxine (SYNTHROID) 100 mcg tablet Take 1 tablet by mouth daily before breakfast. VENTOLIN HFA 90 mcg/actuation inhaler Inhale 2 Puffs as instructed every 4 hours as needed for wheezing/shortness of breath. VENTOLIN HFA 90 mcg/actuation inhaler Inhale 2 Puffs as instructed every 4 hours as needed. clobetasol (TEMOVATE) 0.05 % ointment Apply 1 application to affected area two times a day. TO AFFECTED AREA. fluticasone-salmeterol (ADVAIR, WIXELA) 250-50 mcg/dose inhaler Inhale 1 Puff as instructed two times a day. acetaminophen (TYLENOL) 500 mg tablet Take 1,000 mg by mouth at bedtime as needed. albuterol (PROVENTIL) 2.5 mg /3 mL (0.083 %) nebulizer solution inhale 3 milliliters in nebulizer every 4 hours if needed for wheezing /SHORTNESS OF BREATH. USE OVER 5 -15 MINUTES COMPOUNDED PRESCRIPTION NEBULIZER and supplies FOR HOME USE. DX: J45.30, J45.90. Length of need is life. This is a medically necessary devise for management of patients lung disease. Current machine recently stopped working. While trying to use it started to smoke and stopped. (Patient taking differently: NEBULIZER and supplies FOR HOME USE. DX: J45.30, J45.90. Length of need is life. This is a medically necessary devise for management of patients lung disease. Current machine recently stopped working. While trying to use it started to smoke and stopped. As needed) No current facility-administered medications on file prior to visit. Social History Social History Tobacco Use Smoking status: Former Current packs/day: 0.00 Average packs/day: 2.0 packs/day for 12.0 years (24.0 ttl pk-yrs) Types: Cigarettes Start date: 06/25/1969 Quit date: 06/25/1981 Years since quittin.0 Smokeless tobacco: Never Vaping Use Vaping status: Never Used Substance Use Topics Alcohol use: Yes Alcohol/week: 7.0 standard drinks of alcohol Types: 7 Glasses of wine per week Comment: wine with meals Drug use: No Review of Symptoms REVIEW OF SYSTEMS SEE HPI EXAM: BP 141/69 Pulse 82 Wt 90.7 kg (200 lb) LMP 01/06/2009 BMI 30.41 kg/m General Appearance: Well appearing, alert, in no acute distress, well-hydrated, well nourished. Lungs: Lungs clear to auscultation. No wheezing, rhonchi, rales.. Heart: RRR without murmur, gallop, or rubs. No ectopy. Neurologic: Gait normal. Reflexes normal and symmetric. Sensation grossly intact.. Health Maintenance List Depression Screening Never done Covid-19 Vaccine( season) due on 06/14/2024 Anxiety Screening due on 04/23/2025 Annual PCP Team Chronic Disease Visit due on 04/23/2025 Colorectal Cancer Screening due on 01/02/2027 Diabetes Screening due on 04/18/2027 Lipid Screening due on 04/18/2029 DTaP,Tdap,Td Vaccine(4 - Td or Tdap) due on 06/10/2030 Bone Density Screening Completed Influenza Vaccine Completed Advance Directive Discussion Completed RSV Vaccine Completed Hepatitis C Screening Completed Shingrix Vaccine Completed Pneumococcal Vaccine: 50+ Completed HPV Vaccine Aged Out Mammogram Screening Discontinued Spirometry Discontinued Cervical Cancer Screening Discontinued ASSESSMENT/PLAN: 1. Acquired hypothyroidism - ICD9: 244.9, ICD10: E03.9 (primary diagnosis) - Instructed patient on importance of taking on an empty stomach either first thing in the morning or at bedtime. - check TSH, free T4, and Free T3 today - THYROID STIMULATING HORMONE - T3 - T4 FREE/FREE THYROXINE 2. Elevated hemoglobin A1c - ICD9: 790.29, ICD10: R73.09 - HEMOGLOBIN A1C 3. Dizziness - ICD9: 780.4, ICD10: R42 - OUTSIDE VENDOR CARDIAC OUTPATIENT EVENT RECORDER - ECG COMPLETE 4. PVC (premature ventricular contraction) - ICD9: 427.69, ICD10: I49.3 - METOPROLOL SUCCINATE ER 25 MG TABLET,EXTENDED RELEASE 24 HR - OUTSIDE VENDOR CARDIAC OUTPATIENT EVENT RECORDER - ECG COMPLETE Jojo Anderson APRN.INTEL RECRUITER documented in this encounter [facility] 06-16-2024 Note HNO ID: [id number] Author: RAJAN CONCEPCION MD Service: ? Author Type: Physician Type: Procedures Filed: 07/25/2024 16:26 Note Text: [facility] Name: MONTSERRAT AGUAYO : 1950 Ordering provider: JOJO ANDERSON Indication: R42 Dizziness and giddiness Type of monitor: Event Monitor Enrollment dates: 06/23/2024 - 07/22/2024 [facility] 06-13-2024 Telephone encounter Note Jojo patient will probably need a 30 day event monitor and check TSH and Free T4 if it was not done yet. [facility] 06-13-2024 Miscellaneous Notes Jojo patient will probably need a 30 day event monitor and check TSH and Free T4 if it was not done yet. Was able to locate ER Discharge summary in Onbase Initial EKG Interpretation: Sinus Rhythm and no acute injury pattern. Frequent pvcs nml intervals nml axis. Pt was advised to f/u with her hairspring studder. No mention of A-fib. Sabas Peacock LPN Scan on 06/12/2024 1:23 AM by Provider, External[facility]: Consultation - Emergency Medicine I do not have the ER report to review. However if she was in A. Fib they should ad advised she f/u with cardiology? Can someone pull the ER report and confirm if she was in A. Fib? If so was she advised to see cardio? Pt reports she was in [facility] ER yesterday with dizziness and irregular heart beat. Reports irregular heart beat is not new. Reports she was having a-fib and pvc's. ER prescribed metoprolol succinate. Reports CT was negative, CXR negative. Reports she slept good last night, woke up this morning with a little dizziness, but had not drank liquids yet. Reports the dizziness this morning is not near as bad as yesterday. Pt started drinking water while talking to this nurse. Pt declined ER f/u appt on Sunday stating she has jury duty. Scheduled f/u appt for Sunday. Advised patient to ER if dizziness became worse, and if she develops CP, SOB, MASTERS or any concerning symptoms. Pt agreeable. documented in this encounter [facility] 06-12-2024 Telephone encounter Note Was able to locate ER Discharge summary in Onbase Initial EKG Interpretation: Sinus Rhythm and no acute injury pattern. Frequent pvcs nml intervals nml axis. Pt was advised to f/u with her hairspring studder. No mention of A-fib. Sabas Peacock LPN Scan on 06/12/2024 1:23 AM by Provider, RHIANNA Thompson: Consultation - Emergency Medicine [facility] 06-12-2024 Telephone encounter Note I do not have the ER report to review. However if she was in A. Fib they should ad advised she f/u with cardiology? Can someone pull the ER report and confirm if she was in A. Fib? If so was she advised to see cardio? [facility] 06-12-2024 Telephone encounter Note Pt reports she was in [facility] ER yesterday with dizziness and irregular heart beat. Reports irregular heart beat is not new. Reports she was having a-fib and pvc's. ER prescribed metoprolol succinate. Reports CT was negative, CXR negative. Reports she slept good last night, woke up this morning with a little dizziness, but had not drank liquids yet. Reports the dizziness this morning is not near as bad as yesterday. Pt started drinking water while talking to this nurse. Pt declined ER f/u appt on Sunday stating she has jury duty. Scheduled f/u appt for Sunday. Advised patient to ER if dizziness became worse, and if she develops CP, SOB, MASTERS or any concerning symptoms. Pt agreeable. [facility] 04-23-2024 Telephone encounter Note Patient notified via my chart. Namrata Clifford MA [facility] 04-23-2024 Miscellaneous Notes Patient notified via my chart. Namrata Clifford MA Advise patient that I still want her to stay of the medication at this time. Patient forgot to ask in the appointment. When she had her colonoscopy she had stopped her sugar medication. They told her that her sugar was too low and she has never started the medication again. Should she restart she noticed her blood work her sugar was a little high. Namrata Clifford MA Can notify patient via my chart. documented in this encounter [facility] 04-23-2024 Telephone encounter Note Advise patient that I still want her to stay of the medication at this time. [facility] 04-23-2024 Telephone encounter Note Patient forgot to ask in the appointment. When she had her colonoscopy she had stopped her sugar medication. They told her that her sugar was too low and she has never started the medication again. Should she restart she noticed her blood work her sugar was a little high. Namrata Clifford MA Can notify patient via my chart. [facility] 04-23-2024 Instructions Liam Wilkins MD - 04/23/2024 3:42 PM EDT Please get labs and urine test done on or after 10/10/2024 prior to your next visit. documented in this encounter [facility] 04-23-2024 Note HNO ID: [id number] Author: LIAM WILKINS MD Service: ? Author Type: Physician Type: Progress Notes Filed: 04/23/2024 21:30 Note Text: Chief Complaint Patient presents with: F/U 6 months HPI Montserrat Aguayo is a 74 year old female who presents here today for 6 month follow up. Patient is here today with hx of Hypothyroidism, elevated A1c, GERD, hyperlipidemia, RSD, Vit D def, mild persistent asthma, Hx of breast cancer on the right side, obisity as well as those reviewed and addressed below Patient has been doing well. In the past used topical cream to treat scalp for precancer. Has noted dents on both sides of the scalp feel rough. Sometimes itchy. Past medical history, appointments, medications, allergies reviewed. Previous Medical History PAST MEDICAL HISTORY Diagnosis Date Acquired hypothyroidism 11/29/2005 Bilateral carotid artery stenosis 07/13/2021 US: 06/2021: Stephen 20-40% 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, right (HCC) 10/05/2017 Cataracts, bilateral 12/20/2016 Some relation to steroids with her asthma. 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 Incomplete tear of left rotator cuff 04/16/2023 Internal hemorrhoids without mention of complication Irritable bowel syndrome with both constipation and diarrhea 07/28/2020 Labral tear of long head of left biceps tendon 04/16/2023 Lichen sclerosus Living will in place 01/04/2022 DPA: Deshawn () Mass of left lower leg 07/03/2018 Benign w/u Metabolic syndrome 04/19/2016 Mild persistent asthma 09/07/2011 Mitral valve disorders(424.0) Mixed hyperlipidemia 11/29/2005 Neural foraminal stenosis of cervical spine 03/21/2022 Mod-sever on the left Neutropenia, drug-induced (HCC) 08/11/2011 Obesity Over weight 10/17/2023 Plantar fasciitis 11/24/2013 Primary insomnia 07/06/2021 Right-sided chest wall pain 10/05/2017 Secondary to breast cancer radiation. RSD (reflex sympathetic dystrophy) Sebaceous cyst 01/20/2014 Spinal stenosis, unspecified region other than cervical 03/02/2006 Tear of left glenoid labrum 04/16/2023 Trigger ring finger of right hand 06/23/2014 Vitamin D deficiency 09/15/2019 Previous Surgical History PAST SURGICAL HISTORY Procedure Laterality Date ADENOIDECTOMY PRIMARY Adenoidectomy BREAST BIOPSY CORE 04/11/2011 right breast 2:00, 4:00 and 10:00 BREAST BIOPSY INCISIONAL 14 years ago right and left breast- benign BREAST RECONSTRUC W FREE FLAP 12/13/2012 bilateral breast BREAST RECONSTRUC W TISS EXPANDR 05/25/2011 right breast with elevation of the serratus flap CARDIAC CATH 03/20/2017 normal, by Dr. Colvin COLONOSCOPY 01/03/2024 repeat 3 years COLONOSCOPY FLX DX W/COLLJ SPEC WHEN PFRMD 04/08/2007 COLONOSCOPY FLX DX W/COLLJ SPEC WHEN PFRMD N/A 09/06/2016 MAC COLONOSCOPY FLX DX W/COLLJ SPEC WHEN PFRMD 02/10/2019 Colonoscopy INSJ TUNNELED CTR VAD W/SUBQ PORT AGE 5 YR/> 07/06/2011 left IJ MASTECTOMY, SIMPLE, COMPLETE 05/25/2011 right breast skin-sparing with SLND/level 1 LND MASTECTOMY, SIMPLE, COMPLETE 12/13/2012 prophylactic left breast PAST SURGICAL HISTORY OF squamous cell skin ca nose, lips, face PAST SURGICAL HISTORY OF 1972 removal of sweat glands (bilateral axilla (right x 2)and groin) PAST SURGICAL HISTORY OF 03/06/2016 removal of polyp at [facility] [employer] COVID-19 VACCINE, AGE 12+ YR (PURPLE TOP) 09/11/2020 first vaccine REM LESION TRUNK,ARM, LEG <0.5 CM 01/24/2014 Exc. deyanira cyst left inframammary REPAIR ROTATOR CUFF,ACUTE Left 07/02/2023 RMVL MOISES CTR VAD W/SUBQ PORT/BUHR MILL OPERATOR CTR/PRPH INSJ 01/18/2012 Removal left IJ port RPR COMPLEX RETINA DETACH VITRECT ANDMEMBRANE PEEL 09/2014 left retina SIGMOIDOSCOPY FLX DX W/COLLJ SPEC BR/WA IF PFRMD 01/27/2002 Sigmoidoscopy TONSILLECTOMY PRIMARY/SECONDARY Tonsillectomy Family History FAMILY HISTORY Problem Relation Age of Onset Breast Cancer Mother dx in her 50's other (uterine cancer) Mother dx before breast cancer Aneurysm Mother Brain Heart Father MT, valve disorder Headache Sister other (other cances) Sister no known family h/o: ovarian; prostate, colon, pancreatic, lung, thyroid, brain, melenoma, leukemia, sarcomas No Known Problems Maternal Grandmother Heart Attack Maternal Grandfather other (rectal cancer) Paternal Grandmother 95 Colon Cancer Paternal Grandmother No Known Problems Paternal Grandfather No Known Problems [place] (more content not included)... [facility] 04-23-2024 History of Present illness Narrative Chief Complaint Patient presents with: F/U 6 months HPI Montserrat Aguayo is a 74 year old female who presents here today for 6 month follow up. Patient is here today with hx of Hypothyroidism, elevated A1c, GERD, hyperlipidemia, RSD, Vit D def, mild persistent asthma, Hx of breast cancer on the right side, obisity as well as those reviewed and addressed below Patient has been doing well. In the past used topical cream to treat scalp for precancer. Has noted dents on both sides of the scalp feel rough. Sometimes itchy. Past medical history, appointments, medications, allergies reviewed. Previous Medical History PAST MEDICAL HISTORY Diagnosis Date Acquired hypothyroidism 11/29/2005 Bilateral carotid artery stenosis 07/13/2021 US: 06/2021: Stephen 20-40% 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, right (HCC) 10/05/2017 Cataracts, bilateral 12/20/2016 Some relation to steroids with her asthma. 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 Incomplete tear of left rotator cuff 04/16/2023 Internal hemorrhoids without mention of complication Irritable bowel syndrome with both constipation and diarrhea 07/28/2020 Labral tear of long head of left biceps tendon 04/16/2023 Lichen sclerosus Living will in place 01/04/2022 DPA: Deshawn () Mass of left lower leg 07/03/2018 Benign w/u Metabolic syndrome 04/19/2016 Mild persistent asthma 09/07/2011 Mitral valve disorders(424.0) Mixed hyperlipidemia 11/29/2005 Neural foraminal stenosis of cervical spine 03/21/2022 Mod-sever on the left Neutropenia, drug-induced (HCC) 08/11/2011 Obesity Over weight 10/17/2023 Plantar fasciitis 11/24/2013 Primary insomnia 07/06/2021 Right-sided chest wall pain 10/05/2017 Secondary to breast cancer radiation. RSD (reflex sympathetic dystrophy) Sebaceous cyst 01/20/2014 Spinal stenosis, unspecified region other than cervical 03/02/2006 Tear of left glenoid labrum 04/16/2023 Trigger ring finger of right hand 06/23/2014 Vitamin D deficiency 09/15/2019 Previous Surgical History PAST SURGICAL HISTORY Procedure Laterality Date ADENOIDECTOMY PRIMARY <AGE 14 Adenoidectomy BREAST BIOPSY CORE 04/11/2011 right breast 2:00, 4:00 and 10:00 BREAST BIOPSY INCISIONAL 14 years ago right and left breast- benign BREAST RECONSTRUC W FREE FLAP 12/13/2012 bilateral breast BREAST RECONSTRUC W TISS EXPANDR 05/25/2011 right breast with elevation of the serratus flap CARDIAC CATH 03/20/2017 normal, by Dr. Colvin COLONOSCOPY 01/03/2024 repeat 3 years COLONOSCOPY FLX DX W/COLLJ SPEC WHEN PFRMD 04/08/2007 COLONOSCOPY FLX DX W/COLLJ SPEC WHEN PFRMD N/A 09/06/2016 MAC COLONOSCOPY FLX DX W/COLLJ SPEC WHEN PFRMD 02/10/2019 Colonoscopy INSJ TUNNELED CTR VAD W/SUBQ PORT AGE 7 YR/> 07/06/2011 left IJ MASTECTOMY, SIMPLE, COMPLETE 05/25/2011 right breast skin-sparing with SLND/level 1 LND MASTECTOMY, SIMPLE, COMPLETE 12/13/2012 prophylactic left breast PAST SURGICAL HISTORY OF squamous cell skin ca nose, lips, face PAST SURGICAL HISTORY OF 1972 removal of sweat glands (bilateral axilla (right x 2)and groin) PAST SURGICAL HISTORY OF 03/06/2016 removal of polyp at [facility] [employer] COVID-19 VACCINE, AGE 12+ YR (PURPLE TOP) 09/11/2020 first vaccine REM LESION TRUNK,ARM, LEG <0.5 CM 01/24/2014 Exc. deyanira cyst left inframammary REPAIR ROTATOR CUFF,ACUTE Left 07/02/2023 RMVL MOISES CTR VAD W/SUBQ PORT/BUHR MILL OPERATOR CTR/PRPH INSJ 01/18/2012 Removal left IJ port RPR COMPLEX RETINA DETACH VITRECT &MEMBRANE PEEL 09/2014 left retina SIGMOIDOSCOPY FLX DX W/COLLJ SPEC BR/WA IF PFRMD 01/27/2002 Sigmoidoscopy TONSILLECTOMY PRIMARY/SECONDARY <AGE 14 Tonsillectomy Family History FAMILY HISTORY Problem Relation Age of Onset Breast Cancer Mother dx in her 50's other (uterine cancer) Mother dx before breast cancer Aneurysm Mother Brain Heart Father MT, valve disorder Headache Sister other (other cances) Sister no known family h/o: ovarian; prostate, colon, pancreatic, lung, thyroid, brain, melenoma, leukemia, sarcomas No Known Problems Maternal Grandmother Heart Attack Maternal Grandfather other (rectal cancer) Paternal Grandmother 95 Colon Cancer Paternal Grandmother No Known Problems Paternal Grandfather No Known Problems Daughter Heart Son Breast Cancer Maternal Aunt 1) details unknown Breast Cancer Maternal Aunt 2) details unknown Patient Allergies ALLERGIES Allergen Reactions Typhoid Vaccine Intolerance Adhesive Tape (Haley* Other: See Comments after 2 days area becomes red and itches Cats Intolerance Diclofenac Other: See Comments elevated liver enz Dogs Intolerance Dust Intolerance Meloxicam Other: See Comments Swollen eyelids Mold Intolerance Tegretol [Carbamaze* Intolerance blood problem Current Medications Current Outpatient Medications on File Prior to Visit Medication Sig amitriptyline (ELAVIL) 25 mg tablet Take 2 tablets by mouth daily at bedtime. atorvastatin (LIPITOR) 40 mg tablet Take 1 tablet by mouth once daily. levothyroxine (SYNTHROID) 100 mcg tablet Take 1 tablet by mouth daily before breakfast. VENTOLIN HFA 90 mcg/actuation inhaler Inhale 2 Puffs as instructed every 4 hours as needed for wheezing/shortness of breath. VENTOLIN HFA 90 mcg/actuation inhaler Inhale 2 Puffs as instructed every 4 hours as needed. clobetasol (TEMOVATE) 0.05 % ointment Apply 1 application to affected area two times a day. TO AFFECTED AREA. ondansetron orally disintegrating (ZOFRAN ODT) 4 mg disintegrating tablet Take 1 tablet by mouth every 8 hours as needed for nausea/vomiting. (Patient not taking: Reported on 10/17/2023) docusate sodium (COLACE) 100 mg capsule Take 1 capsule by mouth two times a day. naproxen (NAPROSYN) 500 mg tablet Take 1 tablet by mouth two times a day as needed (for pain/inflammation). Take with food. (Patient not taking: Reported on 06/22/2023) ergocalciferol 50,000 unit capsule (VITAMIN D2, DRISDOL) Every other week pioglitazone (ACTOS) 30 mg tablet Take 1 tablet by mouth once daily. (Patient not taking: Reported on 11/09/2023) fluticasone-salmeterol (ADVAIR, WIXELA) 250-50 mcg/dose inhaler Inhale 1 Puff as instructed two times a day. sertraline (ZOLOFT) 100 mg tablet Take one tablet by mouth once a day. (Patient not taking: Reported on 06/22/2023) acetaminophen (TYLENOL) 500 mg tablet Take 1,000 mg by mouth at bedtime as needed. albuterol (PROVENTIL) 2.5 mg /3 mL (0.083 %) nebulizer solution inhale 3 milliliters in nebulizer every 4 hours if needed for wheezing /SHORTNESS OF BREATH. USE OVER 5 -15 MINUTES COMPOUNDED PRESCRIPTION NEBULIZER and supplies FOR HOME USE. DX: J45.30, J45.90. Length of need is life. This is a medically necessary devise for management of patients lung disease. Current machine recently stopped working. While trying to use it started to smoke and stopped. (Patient taking differently: NEBULIZER and supplies FOR HOME USE. DX: J45.30, J45.90. Length of need is life. This is a medically necessary devise for management of patients lung disease. Current machine recently stopped working. While trying to use it started to smoke and stopped. As needed) No current facility-administered medications on file prior to visit. Social History Social History Tobacco Use Smoking status: Former Current packs/day: 0.00 Average packs/day: 2.0 packs/day for 12.0 years (24.0 ttl pk-yrs) Types: Cigarettes Start date: 06/25/1969 Quit date: 06/25/1981 Years since quittin.8 Smokeless tobacco: Never Vaping Use Vaping status: Never Used Substance Use Topics Alcohol use: Yes Alcohol/week: 7.0 standard drinks of alcohol Types: 7 Glasses of wine per week Comment: wine with meals Drug use: No Review of Symptoms REVIEW OF SYSTEMS GENERAL: No weight loss, malaise or fevers NECK: Negative for lumps, goiter, pain and significant neck swelling RESPIRATORY: Negative for cough, hemoptysis, wheezing, COPD, dyspnea or shortness of breath. Allergies has been flared. Has been coughing up some yellow mucus from post nasal drainage but this has decreased. CARDIOVASCULAR: Negative for chest pain, leg swelling, hypertension, CHF or changes in her occasional palpitations GI: No nausea, vomiting, or diarrhea and No heartburn or reflux symptoms ENDOCRINE: Negative for cold or heat intolerance, polyuria, polydipsia and goiter NEURO: No history of headaches, syncope, paralysis, seizures or tremors EXAM: BP 114/70 Pulse 80 Resp 16 Wt 88 kg (194 lb) LMP 01/06/2009 BMI 29.50 kg/m Last 4 Encounter Wt Readings: Date: Wt: 04/23/2024 88 kg (194 lb) 02/22/2024 87 kg (191 lb 12.8 oz) 12/26/2023 87.1 kg (192 lb) 11/13/2023 87.1 kg (192 lb) General Appearance: Well appearing, alert, in no acute distress, well-hydrated, well nourished. and Overweight. Skin: Skin color, texture, turgor normal, no suspicious rashes. Has some dry patchy areas on her scalp. Neck: Supple, no adenopathy; thyroid symmetric, normal size, no bruits. Lungs: Lungs clear to auscultation. No wheezing, rhonchi, rales.. Heart: RRR without murmur, gallop, or rubs. No ectopy. Abdomen: Normal abdominal exam, Abdomen soft, non-tender. Bowel sounds normal. No masses, organomegaly. Extremities: No deformities, edema, skin discoloration, Good capillary refill. . Peripheral Pulses: Normal. Neurologic: Gait normal. Sensation to light touch and crainal nerves 2-12 intact.. Health Maintenance List Depression Screening Never done Anxiety Screening Never done Influenza Vaccine(1) due on 02/24/2024 Covid-19 Vaccine( season) due on 02/24/2024 Annual PCP Team Chronic Disease Visit due on 04/23/2025 Colorectal Cancer Screening due on 01/02/2027 Diabetes Screening due on 04/18/2027 Lipid Screening due on 04/18/2029 DTaP,Tdap,Td Vaccine(4 - Td or Tdap) due on 06/10/2030 Bone Density Screening Completed Advance Directive Discussion Completed RSV Vaccine Completed Hepatitis C Screening Completed Shingrix Vaccine Completed Pneumococcal Vaccine: 65+ Completed HPV Vaccine Aged Out Mammogram Screening Discontinued Spirometry Discontinued Cervical Cancer Screening Discontinued Data reviewed Latest Ref Rng 10/04/2023 12/04/2023 04/18/2024 WBC 3.70 - 11.00 k/uL 6.00 RBC 3.90 - 5.20 m/uL 4.39 Hemoglobin 11.5 - 15.5 g/dL 13.1 Hematocrit 36.0 - 46.0 % 41.1 MCV 80.0 - 100.0 fL 93.6 MCH 26.0 - 34.0 pg 29.8 MCHC 30.5 - 36.0 g/dL 31.9 RDW-CV 11.5 - 15.0 % 13.4 Platelet Count 150 - 400 k/uL 289 MPV 9.0 - 12.7 fL 9.9 Neut% % 58.2 Abs Neut (ANC) 1.45 - 7.50 k/uL 3.49 Lymph% % 27.0 Abs Lymph 1.00 - 4.00 k/uL 1.62 Mcdowell% % 8.0 Abs Mcdowell <0.87 k/uL 0.48 Eosin% % 6.0 Abs Eosin <0.46 k/uL 0.36 Baso% % 0.5 Abs Baso <0.11 k/uL 0.03 Immature Gran % % 0.3 IMMATURE GRANS (ABS) <0.10 k/uL <0.03 NRBC /100 WBC 0.0 Absolute nRBC <0.01 k/uL <0.01 DTYPE Auto Protein, Total 6.3 - 8.0 g/dL 6.9 7.0 Albumin 3.9 - 4.9 g/dL 4.4 4.3 Calcium 8.5 - 10.2 mg/dL 9.5 Bilirubin, Total 0.2 - 1.3 mg/dL 0.4 0.4 Alkaline Phosphatase 34 - 123 U/L 80 80 AST 13 - 35 U/L 26 32 ALT 7 - 38 U/L 19 30 Glucose 74 - 99 mg/dL 90 BUN 7 - 21 mg/dL 11 Creatinine 0.58 - 0.96 mg/dL 0.63 Sodium 136 - 144 mmol/L 140 Potassium 3.7 - 5.1 mmol/L 4.5 Chloride 97 - 105 mmol/L 103 CO2 22 - 30 mmol/L 28 Anion Gap 9 - 18 mmol/L 9 eGFR >=60 mL/min/1.73m 95 Total Cholesterol, Nonfasting <200 mg/dL 174 202 (H) Triglycerides, Nonfasting <150 mg/dL 90 63 HDL Cholesterol, Nonfasting >39 mg/dL 71 93 LDL Cholesterol, Nonfasting <100 mg/dL 85 96 Non HDL Cholesterol, Nonfasting <130 mg/dL 103 109 VLDL Cholesterol, Nonfasting <30 mg/dL 18 13 Total Chol/HDL Ratio, Nonfasting <5.10 mg/dL 2.45 2.17 LDL/HDL Ratio, Nonfasting <2.54 mg/dL 1.20 1.03 Bilirubin, Direct <0.2 mg/dL <0.2 Hemoglobin A1C 4.3 - 5.6 % 5.3 5.8 (H) Estimated Average Glucose mg/dL 105 120 Vitamin D 25 Hydroxy 31.0 - 80.0 ng/mL 91.5 (H) 64.7 TSH 0.270 - 4.200 mIU/L 1.030 1.570 A/P ASSESSMENT/PLAN: 1. Mixed hyperlipidemia - ICD9: 272.2, ICD10: E78.2 (primary diagnosis) - Uncontrolled - Increase atorvastatin (Lipitor) to 80 mg a day. - Counseled on healthy diet and regular exercise - Discussed need for and benefit of weight loss. BMI 29.50 kg/(m^2) 2. Acquired hypothyroidism - ICD9: 244.9, ICD10: E03.9 - Instructed patient on importance of taking on an empty stomach either first thing in the morning or at bedtime. - continue current dose of Synthroid 3. Elevated hemoglobin A1c - ICD9: 790.29, ICD10: R73.09 - cont control with diet. 4. Gastroesophageal reflux disease without esophagitis - ICD9: 530.81, ICD10: K21.9 - controlled with diet. 5. Bilateral carotid artery stenosis - ICD9: 433.10, 433.30, ICD10: I65.23 - goal to get LDL less then 70. Increase lipitor to 80 mg a day. 6. Mild persistent asthma without complication - ICD9: 493.90, ICD10: J45.30 - Mild persistent asthma stable - Continue current medications - Avoidance of triggers recommended 7. 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, right (HCC) - ICD9: 174.9, ICD10: C50.911 - cont f/u with oncology. 8. Neutropenia, drug-induced (HCC) - ICD9: 288.03, E980.5, ICD10: D70.2 - labs have been ok. 9. Vitamin D deficiency - ICD9: 268.9, ICD10: E55.9 - stable with taking Centrum. 10. Fatty liver - ICD9: 571.8, ICD10: K76.0 - patient continues work on weight loss. 11. Skin lesions - ICD9: 709.9, ICD10: L98.9 - advised patient to get back in with [facility]. F/u 6 months Well Adult exam. Check CMP, Lipid, UA, A1c, TSH, CBC, Vit D prior. Liam Wilkins MD documented in this encounter [facility] 04-19-2024 Telephone encounter Note I spoke to Montserrat and reviewed her 04/18 lipids and LFTs with her. She states that she has not increased her Lipitor dose to 80 mg po daily and is waiting to discuss this with Dr. Wilkins on 04/23. She will keep us updated and how she wishes to proceed. She is advised that if/when she increases her lipitor dose to 80 mg daily, repeat lipids and LFTs in 4-6 [address] is recommended[address] CT showed trivial calcific plaque in LM. Carotid US showed 20-39% ICA stenosis bilaterally. Goal LDL ideally <70. [facility] Work Phone: 04-19-2024 Miscellaneous Notes I spoke to Montserrat and reviewed her 04/18 lipids and LFTs with her. She states that she has not increased her Lipitor dose to 80 mg po daily and is waiting to discuss this with Dr. Wilkins on 04/23. She will keep us updated and how she wishes to proceed. She is advised that if/when she increases her lipitor dose to 80 mg daily, repeat lipids and LFTs in 4-6 [address] is recommended[address] Cardiac CT showed trivial calcific plaque in LM. Carotid US showed 20-39% ICA stenosis bilaterally. Goal LDL ideally <70. documented in this encounter [facility] 03-07-2024 Telephone encounter Note Prescription Refill Information The patient has been identified by name and date of : Yes Caregiver verified no other encounters exist for this prescription request: Yes Caregiver confirmed with patient/requestor that no other refills are due, in the near future, with this provider at this time: Yes The last office visit in the department: 10/17/23 Does the patient have a future office visit with this provider/department: Yes Requested Prescriptions Pending Prescriptions Disp Refills amitriptyline (ELAVIL) 25 mg tablet 180 tablet 1 Sig: Take 2 tablets by mouth daily at bedtime. atorvastatin (LIPITOR) 40 mg tablet 90 tablet 1 Sig: Take 1 tablet by mouth once daily. levothyroxine (SYNTHROID) 100 mcg tablet 90 tablet 1 Sig: Take 1 tablet by mouth daily before breakfast. Sabas Peacock LPN March 07, 2024 9:23 AM [facility] 03-07-2024 Miscellaneous Notes Prescription Refill Information The patient has been identified by name and date of : Yes Caregiver verified no other encounters exist for this prescription request: Yes Caregiver confirmed with patient/requestor that no other refills are due, in the near future, with this provider at this time: Yes The last office visit in the department: 10/17/23 Does the patient have a future office visit with this provider/department: Yes Requested Prescriptions Pending Prescriptions Disp Refills amitriptyline (ELAVIL) 25 mg tablet 180 tablet 1 Sig: Take 2 tablets by mouth daily at bedtime. atorvastatin (LIPITOR) 40 mg tablet 90 tablet 1 Sig: Take 1 tablet by mouth once daily. levothyroxine (SYNTHROID) 100 mcg tablet 90 tablet 1 Sig: Take 1 tablet by mouth daily before breakfast. Sabas Peacock LPN March 07, 2024 9:23 AM Prescription Refill Information The patient has been identified by name and date of : Yes Caregiver verified no other encounters exist for this prescription request: Yes Caregiver confirmed with patient/requestor that no other refills are due, in the near future, with this provider at this time: Yes The last office visit in the department: 10/17/23 Does the patient have a future office visit with this provider/department: Yes Requested Prescriptions Pending Prescriptions Disp Refills amitriptyline (ELAVIL) 25 mg tablet 180 tablet 1 Sig: Take 2 tablets by mouth daily at bedtime. atorvastatin (LIPITOR) 40 mg tablet 90 tablet 1 Sig: Take 1 tablet by mouth once daily. levothyroxine (SYNTHROID) 100 mcg tablet 90 tablet 1 Sig: Take 1 tablet by mouth daily before breakfast. Della Levin [facility] March 07, 2024 9:19 AM documented in this encounter [facility] 03-07-2024 Telephone encounter Note Prescription Refill Information The patient has been identified by name and date of : Yes Caregiver verified no other encounters exist for this prescription request: Yes Caregiver confirmed with patient/requestor that no other refills are due, in the near future, with this provider at this time: Yes The last office visit in the department: 10/17/23 Does the patient have a future office visit with this provider/department: Yes Requested Prescriptions Pending Prescriptions Disp Refills amitriptyline (ELAVIL) 25 mg tablet 180 tablet 1 Sig: Take 2 tablets by mouth daily at bedtime. atorvastatin (LIPITOR) 40 mg tablet 90 tablet 1 Sig: Take 1 tablet by mouth once daily. levothyroxine (SYNTHROID) 100 mcg tablet 90 tablet 1 Sig: Take 1 tablet by mouth daily before breakfast. Della Levin [facility] March 07, 2024 9:19 AM [facility] 02-27-2024 History of Present illness Narrative Associated Order(s): Large Joint Arthro/Inj: L shoulder joint Post-Procedure Diagnose(s): S/P shoulder surgery; Left shoulder pain, unspecified chronicity PAIN EVALUATION 02/22/2024 1000 Pain Location: Shoulder-Left Description: Aching Frequency: Intermittent Encounter Diagnosis ICD-10-CM 1. Left shoulder pain, unspecified chronicity M25.512 2. S/P shoulder surgery Z98.890 Montserrat Aguayo returns follow-up on left shoulder pain and stiffness following surgery. Her stiffness has resolved but she still has had achy pain in the lateral shoulder. She request corticosteroid injection today to allow her to continue maintaining her function. I examined the left shoulder today. She does have improvement in her overhead and rotational movement which is less restricted today. She has good strength with resisted elevation. Biceps contour is normal. Belly press test is normal but with pain in the anterior shoulder. PLAN: Discussed the plan for conservative management of her pain in the left shoulder as she recovers her range of motion. Corticosteroid injection was administered in the office today. She will return as needed for continued medical management of her shoulder. Large Joint Arthro/Inj: L shoulder joint 02/27/2024 10:02 AM The procedure site was prepped in the usual sterile fashion. Site: L shoulder joint Medications: 80 mg triamcinolone acetonide 40 mg/mL Anesthetics: 4 mL bupivacaine (PF) 0.25 % (2.5 mg/mL) Outcome: Tolerated well, no immediate complications Post-injection instructions were reviewed with the patient and the patient voiced understanding of these instructions. Regina Mcpherson MD Shoulder & Elbow Surgeon Department of Orthopaedic Surgery [facility] documented in this encounter [facility] 02-22-2024 History of Present illness Narrative Images from the original note were not included. [facility] [place] SECTION OF REGIONAL CARDIOLOGY OUTPATIENT VISIT DATE 02/22/2024 OUTPATIENT VISIT TYPE Established PRIMARY CARE PHYSICIAN: Liam Wilkins [address] [place] [address] HISTORY OF PRESENT ILLNESS: Ms. Aguayo is a 74 year old female, history of hypothyroidism, carotid artery stenosis 20-39% ICA stenosis bilaterally, aortic stenosis, hyperlipidemia, presents for f/u. She denies chest pain, SOB, palpitations, orthopnea, PND, leg swelling, lightheadedness, syncope. At her last visit, RONY was recommended to assess her aortic valve severity however RONY declined and lasted another modality. CT scan was offered. Cardiac CT 06/27/2023 revealed a trileaflet aortic valve with trivial calcification of leaflets. No evidence of any significant stenosis. Trivial calcific atherosclerotic plaque in the distal left main, otherwise no calcific plaque noted. No significant coronary stenosis however current study not optimized for assessment of CAD. Normal aortic size. Previously seen by Dr. Deng Joe 06/22/2023. PAST MEDICAL HISTORY 11/29/2005: Acquired hypothyroidism 07/13/2021: Bilateral carotid artery stenosis Comment: US: 06/2021: Stephen 20-40% 10/05/2017: 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, right (HCC) 12/20/2016: Cataracts, bilateral Comment: Some relation to steroids with her asthma. 01/27/2011: Cervicalgia 12/31/2017: Class 1 obesity due to excess calories without serious comorbidity with body mass index (BMI) of 33.0 to 33.9 in adult No date: Diverticulosis of large intestine 09/10/2017: Elevated hemoglobin A1c No date: Ex-smoker 04/19/2016: Fatty liver 12/31/2017: Foot pain, left 06/23/2014: Ganglion and cyst of synovium, tendon and bursa 08/21/2016: Gastroesophageal reflux disease without esophagitis No date: Hidradenitis 01/06/2019: History of colonic polyps 12/20/2016: History of detached retina repair Comment: left No date: History of skin cancer Comment: Face and lips - SCCIS 04/16/2023: Incomplete tear of left rotator cuff No date: Internal hemorrhoids without mention of complication 07/28/2020: Irritable bowel syndrome with both constipation and diarrhea 04/16/2023: Labral tear of long head of left biceps tendon No date: Lichen sclerosus 01/04/2022: Living will in place Comment: DPA: Deshawn () 07/03/2018: Mass of left lower leg Comment: Benign w/u 04/19/2016: Metabolic syndrome 09/07/2011: Mild persistent asthma No date: Mitral valve disorders(424.0) 11/29/2005: Mixed hyperlipidemia 03/21/2022: Neural foraminal stenosis of cervical spine Comment: Mod-sever on the left 08/11/2011: Neutropenia, drug-induced (HCC) No date: Obesity 10/17/2023: Over weight 11/24/2013: Plantar fasciitis 07/06/2021: Primary insomnia 10/05/2017: Right-sided chest wall pain Comment: Secondary to breast cancer radiation. No date: RSD (reflex sympathetic dystrophy) 01/20/2014: Sebaceous cyst 03/02/2006: Spinal stenosis, unspecified region other than cervical 04/16/2023: Tear of left glenoid labrum 06/23/2014: Trigger ring finger of right hand 09/15/2019: Vitamin D deficiency PAST SURGICAL HISTORY No date: ADENOIDECTOMY PRIMARY <AGE 14 Comment: Adenoidectomy 04/11/2011: BREAST BIOPSY CORE Comment: right breast 2:00, 4:00 and 10:00 14 years ago: BREAST BIOPSY INCISIONAL Comment: right and left breast- benign 12/13/2012: BREAST RECONSTRUC W FREE FLAP Comment: bilateral breast 05/25/2011: BREAST RECONSTRUC W TISS EXPANDR Comment: right breast with elevation of the serratus flap 03/20/2017: CARDIAC CATH Comment: normal, by Dr. Colvin 01/03/2024: COLONOSCOPY Comment: repeat 3 years 04/08/2007: COLONOSCOPY FLX DX W/COLLJ SPEC WHEN PFRMD 09/06/2016: COLONOSCOPY FLX DX W/COLLJ SPEC WHEN PFRMD; N/A Comment: MAC 02/10/2019: COLONOSCOPY FLX DX W/COLLJ SPEC WHEN PFRMD Comment: Colonoscopy 07/06/2011: INSJ TUNNELED CTR VAD W/SUBQ PORT AGE 7 YR/> Comment: left IJ 05/25/2011: MASTECTOMY, SIMPLE, COMPLETE Comment: right breast skin-sparing with SLND/level 1 LND 12/13/2012: MASTECTOMY, SIMPLE, COMPLETE Comment: prophylactic left breast No date: PAST SURGICAL HISTORY OF Comment: squamous cell skin ca nose, lips, face 1972: PAST SURGICAL HISTORY OF Comment: removal of sweat glands (bilateral axilla (right x 2)and groin) 03/06/2016: PAST SURGICAL HISTORY OF Comment: removal of polyp at [facility] 09/11/2020: [employer] COVID-19 VACCINE, AGE 12+ YR (PURPLE TOP) Comment: first vaccine 01/24/2014: REM LESION TRUNK,ARM, LEG <0.5 CM Comment: Exc. deyanira cyst left inframammary 07/02/2023: REPAIR ROTATOR CUFF,ACUTE; Left 01/18/2012: RMVL [facility]IS[facility] CTR VAD W/SUBQ PORT/[facility] OPERATOR CTR/PRPH INSJ Comment: Removal left IJ port 09/2014: RPR COMPLEX RETINA DETACH VITRECT &MEMBRANE PEEL Comment: left retina 01/27/2002: SIGMOIDOSCOPY FLX DX W/COLLJ SPEC BR/WA IF PFRMD Comment: Sigmoidoscopy No date: TONSILLECTOMY PRIMARY/SECONDARY <AGE 14 Comment: Tonsillectomy Social History Tobacco Use Smoking status: Former Current packs/day: 0.00 Average packs/day: 2.0 packs/day for 12.0 years (24.0 ttl pk-yrs) Types: Cigarettes Start date: 06/25/1969 Quit date: 06/25/1981 Years since quittin.6 Smokeless tobacco: Never Vaping Use Vaping status: Never Used Substance Use Topics Alcohol use: Yes Alcohol/week: 7.0 standard drinks of alcohol Types: 7 Glasses of wine per week Comment: wine with meals Drug use: No FAMILY HISTORY Problem Relation Age of Onset Breast Cancer Mother dx in her 50's other (uterine cancer) Mother dx before breast cancer Aneurysm Mother Brain Heart Father MT, valve disorder Headache Sister other (other cances) Sister no known family h/o: ovarian; prostate, colon, pancreatic, lung, thyroid, brain, melenoma, leukemia, sarcomas No Known Problems Maternal Grandmother Heart Attack Maternal Grandfather other (rectal cancer) Paternal Grandmother 95 Colon Cancer Paternal Grandmother No Known Problems Paternal Grandfather No Known Problems Daughter Heart Son Breast Cancer Maternal Aunt 1) details unknown Breast Cancer Maternal Aunt 2) details unknown ALLERGIES Allergen Reactions Typhoid Vaccine Intolerance Adhesive Tape (Haley* Other: See Comments after 2 days area becomes red and itches Cats Intolerance Diclofenac Other: See Comments elevated liver enz Dogs Intolerance Dust Intolerance Meloxicam Other: See Comments Swollen eyelids Mold Intolerance Tegretol [Carbamaze* Intolerance blood problem CURRENT MEDICATIONS: VENTOLIN HFA 90 mcg/actuation inhaler Inhale 2 Puffs as instructed every 4 hours as needed for wheezing/shortness of breath. VENTOLIN HFA 90 mcg/actuation inhaler Inhale 2 Puffs as instructed every 4 hours as needed. clobetasol (TEMOVATE) 0.05 % ointment Apply 1 application to affected area two times a day. TO AFFECTED AREA. atorvastatin (LIPITOR) 40 mg tablet take 1 tablet by mouth once daily amitriptyline (ELAVIL) 25 mg tablet Take 2 tablets by mouth daily at bedtime. ondansetron orally disintegrating (ZOFRAN ODT) 4 mg disintegrating tablet Take 1 tablet by mouth every 8 hours as needed for nausea/vomiting. (Patient not taking: Reported on 10/17/2023) docusate sodium (COLACE) 100 mg capsule Take 1 capsule by mouth two times a day. (Patient not taking: Reported on 12/31/2023) naproxen (NAPROSYN) 500 mg tablet Take 1 tablet by mouth two times a day as needed (for pain/inflammation). Take with food. (Patient not taking: Reported on 06/22/2023) levothyroxine (SYNTHROID) 100 mcg tablet Take 1 tablet by mouth daily before breakfast. ergocalciferol 50,000 unit capsule (VITAMIN D2, DRISDOL) Every other week (Patient not taking: Reported on 12/31/2023) pioglitazone (ACTOS) 30 mg tablet Take 1 tablet by mouth once daily. (Patient not taking: Reported on 11/09/2023) fluticasone-salmeterol (ADVAIR, WIXELA) 250-50 mcg/dose inhaler Inhale 1 Puff as instructed two times a day. sertraline (ZOLOFT) 100 mg tablet Take one tablet by mouth once a day. (Patient not taking: Reported on 06/22/2023) acetaminophen (TYLENOL) 500 mg tablet Take 1,000 mg by mouth at bedtime as needed. albuterol (PROVENTIL) 2.5 mg /3 mL (0.083 %) nebulizer solution inhale 3 milliliters in nebulizer every 4 hours if needed for wheezing /SHORTNESS OF BREATH. USE OVER 5 -15 MINUTES COMPOUNDED PRESCRIPTION NEBULIZER and supplies FOR HOME USE. DX: J45.30, J45.90. Length of need is life. This is a medically necessary devise for management of patients lung disease. Current machine recently stopped working. While trying to use it started to smoke and stopped. (Patient taking differently: NEBULIZER and supplies FOR HOME USE. DX: J45.30, J45.90. Length of need is life. This is a medically necessary devise for management of patients lung disease. Current machine recently stopped working. While trying to use it started to smoke and stopped. As needed) PHYSICAL EXAMINATION: BP 106/66 Pulse 88 Ht 172.7 cm (5' 8) Wt 87 kg (191 lb 12.8 oz) LMP 01/06/2009 SpO2 98% BMI 29.16 kg/m General: Appears comfortable in no apparent cardiopulmonary distress Neck: No JVD, no bruits CVS: S1, S2, No m/r/g Chest: CTAB Abd: Soft, nontender, no masses, BS present Ext: No pedal edema, pedal pulses 2+ bilaterally Neuro: No focal neurological deficits CARDIOVASCULAR MEDICINE TESTING: Last ECHO Result Conclusion ECHO Collected: 06/19/2023 7:56 AM (Edited Result - FINAL) Impression: CONCLUSIONS: - Exam indication: Abnormal ECG - The left ventricle is normal in size. Left ventricular systolic function is normal. EF = 54 5% (2D biplane) Grade I left ventricular diastolic dysfunction. - The right ventricle is normal in size. Right ventricular systolic function is normal. - There appears to be paradoxical low flow, low gradient severe aortic valve stenosis caused by calcified valve. AV area is 0.72 cm (0.34 cm /m ) by continuity, VTI. LAINEY could not be assessed by planimetry due to poor visualization of the aortic valve. The peak gradient is 30 mmHg, the mean gradient is 17 mmHg and the dimensionless valve index is 0.21. - Exam was compared with the prior echocardiographic exam performed on 06/27/2011. There was no aortic stenosis in 2011 and LVEF was 60+/-5%. * * * Final (Updated) * * * Last EKG Result Conclusion ECG COMPLETE Collected: 06/22/2023 1:27 PM (Final result) Impression: SINUS RHYTHM WITH OCCASIONAL PREMATURE VENTRICULAR COMPLEXES NORMAL ECG Confirmed by MILES ETIENNE MD ([id number]) on 07/16/2023 11:01:[address] Result Conclusion CT CARDIAC W IVCON Exam End: 06/27/2023 3:22 PM (Final result) Impression: IMPRESSION: Trileaflet aortic valve with trivial calcification of the valve leaflets. There is preserved excursion of the leaflets without evidence of any significant stenosis. Please correlate with echocardiography for aortic valve gradients, if clinically indicated. Trivial calcific atherosclerotic plaque noted in the distal left main, otherwise no calcific plaque noted. No significant coronary stenosis, however current study not optimized for assessment of CAD. Photographs Curator: DON Transcribe Date/Time: Jun 27 2023 3:44P Dictated by : PATTI MORTON MD This examination was interpreted and the report reviewed and electronically signed by: PATTI MORTON MD on Jun 27 2023 3:52PM EST ASSESSMENT/PLAN: 1. Aortic valve stenosis, etiology of cardiac valve disease unspecified - ICD9: 424.1, ICD10: I35.0 - No e/o stenosis per CT 2. Carotid artery stenosis- 20-39% bilateral carotid artery stenosis. Coronary artery stenosis- trivial LM calcific plaque per cardiac CT. - Aim for LDL <70 - Increase atorvastatin to 80 mg p.o. daily. She states that she will take 2 of her 40 mg atorvastatin tablets once daily and inform us when she needs a new prescription. -Check lipids and LFTs in 4 to 6 weeks - Low cholesterol diet- limit red meats, shellfish. Prioritize white meats such as chicken breast, turkey breast, fish for animal protein source, green vegetables, fruits, healthy nuts, heart healthy oats. - RTC in 6 months, sooner if medically necessary Anuja Colon MD, [facility] Non invasive Sports Case Repairer documented in this encounter [facility] 02-01-2024 Miscellaneous Notes Images from the original note were not included. Dianna Eller MD P [facility] General Surgery Pool Please let patient know that pathology for polyps was benign. Recommend follow up surveillance colonoscopy in 3 years. Please update Health Maintenance and generate recall letter, thank you. My Chart message sent to patient. Health maintenance and surgical history updated. Recall letter placed. Darcy Cruz RN documented in this encounter [facility] 02-01-2024 Telephone encounter Note Images from the original note were not included. Dianna Eller MD P [facility] General Surgery Pool Please let patient know that pathology for polyps was benign. Recommend follow up surveillance colonoscopy in 3 years. Please update Health Maintenance and generate recall letter, thank you. My Chart message sent to patient. Health maintenance and surgical history updated. Recall letter placed. Darcy Cruz RN [facility] 01-16-2024 History of Present illness Narrative Radiology Service Progress Note PATIENT NAME: Montserrat Aguayo DATE OF SERVICE: January 16, 2024 TIME: 1:25 PM PATIENT IDENTITY VERIFICATION COMPLETED USING TWO (2) IDENTIFIERS: Name and Date of confirmed by patient verbally. FALL SCREENING: Has the patient had 2 falls in the last year or 1 fall with injury or currently using an Ambulatory Assistive Device (Walker, Cane, Wheelchair, Crutches, etc.)? No PATIENT GENDER DATA: Female. status: : No status: NO. PATIENT RELEVANT IMPLANT DATA REVIEWED: Not Applicable PATIENT PRESENTS WITH AN IMPLANTABLE OR ATTACHED UNIT SECRETARY: No RADIOLOGY DEPARTMENT: Mammography PERIPHERAL IV DATA: Not applicable SIGNED BY: RT Erika(R) January 16, 2024 1:25 PM documented in this encounter [facility] 01-11-2024 Telephone encounter Note Noted. [facility] 01-11-2024 Miscellaneous Notes Noted. Pt notified of results. Pt states she is still on the same diet but will work on improving it and see what her A1c shows. Sabas Peacock LPN Let patient know her blood sugar was ok at 91. If she feels she maybe doing better with her diet we can hold off on restating the Actos for now and see what her next A1c value is. documented in this encounter [facility] 01-11-2024 Telephone encounter Note Pt notified of results. Pt states she is still on the same diet but will work on improving it and see what her A1c shows. Sabas Peacock LPN [facility] 01-10-2024 Telephone encounter Note Let patient know her blood sugar was ok at 91. If she feels she maybe doing better with her diet we can hold off on restating the Actos for now and see what her next A1c value is. [facility] 01-10-2024 Telephone encounter Note Second attempt at reaching out to patient to reschedule appointment on 02/08/2024 [facility] 01-10-2024 Miscellaneous Notes Second attempt at reaching out to patient to reschedule appointment on 02/08/2024 Lvm for patient to call back and reschedule appointment with Dr. Mcpherson on 02/08/2024. Can be put with Megha Seymour. documented in this encounter [facility] 01-09-2024 Telephone encounter Note Lvm for patient to call back and reschedule appointment with Dr. Mcpherson on 02/08/2024. Can be put with Megha Seymour. [facility] 01-09-2024 Telephone encounter Note Patient notified and voiced understanding. Namrata Clifford MA [facility] 01-09-2024 Miscellaneous Notes Patient notified and voiced understanding. Namrata Clifford MA Let patient know lab order placed. She is not to be fasting when she does this. Pt returned call and given provider's message below with verbalized understanding. Patient reports her last BS was low just before the colonoscopy, and is aware it could be b/c she was fasting, but would feel better if doctor would put order in lab for her to re-check the glucose, just to be safe. Reports she has no s/s of low BS, such as weakness, shakiness, lightheadedness, but she would just feel better to re-check it. Please advise patient. Statement corrected. Clarification Dr. Wilkins is it suppose to say there is no uterine cancer screening or there is now screening. Namrata Clifford MA Let patient know that she had a pelvic exam at her appt on 11/13/2023. They don't do pap smears after the age of 70 for screening. Also let her know uterine cancer would not be found on a pap smear, just cervical cancer is. There is no screening test specifically for uterine cancer. Last visit with [facility] on 11/13/23 with pelvic exam done. Left message for patient to contact office. Happy Birthday! Namrata Clifford MA 1) Advise patient if back to a regular diet then restart the Actos. Advise patient to call her CON[facility] SYSTEM DISPATCHER's office and request an appt for pelvic and possible pap test. Pt calling with 2 questions: Pt had a colonoscopy on Sunday and they did a blood sugar on pt and it was low. Pt is holding her Actose because her blood sugar was low. Pt is asking what to do with Medication. Please advise pt. Pt saw [facility] and they looked at her Lichen but did not do a pap. Pt's mother had uterine cancer in her 60's. Pt was told she can wait for a year to have a pap. Pt concerned with waiting because of the family history. Pt concerned with waiting a year. Please advise pt. Antionette Loo LPN documented in this encounter [facility] 01-09-2024 Telephone encounter Note Let patient know lab order placed. She is not to be fasting when she does this. [facility] 01-09-2024 Telephone encounter Note Pt returned call and given provider's message below with verbalized understanding. Patient reports her last BS was low just before the colonoscopy, and is aware it could be b/c she was fasting, but would feel better if doctor would put order in lab for her to re-check the glucose, just to be safe. Reports she has no s/s of low BS, such as weakness, shakiness, lightheadedness, but she would just feel better to re-check it. Please advise patient. [facility] 01-08-2024 Telephone encounter Note Statement corrected. [facility] 01-08-2024 Telephone encounter Note Clarification Dr. Wilkins is it suppose to say there is no uterine cancer screening or there is now screening. Namrata Clifford MA [facility] 01-08-2024 Telephone encounter Note Let patient know that she had a pelvic exam at her appt on 11/13/2023. They don't do pap smears after the age of 70 for screening. Also let her know uterine cancer would not be found on a pap smear, just cervical cancer is. There is no screening test specifically for uterine cancer. [facility] 01-08-2024 Telephone encounter Note Last visit with [facility] on 11/13/23 with pelvic exam done. [facility] 2024 Telephone encounter Note Left message for patient to contact office. Happy Birthday! Namrata Clifford MA [facility] 2024 Telephone encounter Note 1) Advise patient if back to a regular diet then restart the Actos. Advise patient to call her CON[facility] SYSTEM DISPATCHER's office and request an appt for pelvic and possible pap test. [facility] 2024 Telephone encounter Note Pt calling with 2 questions: Pt had a colonoscopy on Sunday and they did a blood sugar on pt and it was low. Pt is holding her Actose because her blood sugar was low. Pt is asking what to do with Medication. Please advise pt. Pt saw [facility] and they looked at her Lichen but did not do a pap. Pt's mother had uterine cancer in her 60's. Pt was told she can wait for a year to have a pap. Pt concerned with waiting because of the family history. Pt concerned with waiting a year. Please advise pt. Antionette Loo LPN [facility] 12-31-2023 Telephone encounter Note The following approved medication requests have been transmitted electronically. Requested Prescriptions Signed Prescriptions Disp Refills VENTOLIN HFA 90 mcg/actuation inhaler 18 g 11 Sig: Inhale 2 Puffs as instructed every 4 hours as needed for wheezing/shortness of breath. Authorizing Provider: LIAM WILKINS MD T [facility] 12-31-2023 Miscellaneous Notes The following approved medication requests have been transmitted electronically. Requested Prescriptions Signed Prescriptions Disp Refills VENTOLIN HFA 90 mcg/actuation inhaler 18 g 11 Sig: Inhale 2 Puffs as instructed every 4 hours as needed for wheezing/shortness of breath. Authorizing Provider: LIAM WILKINS MD The patient has been identified by name and date of : Yes Caregiver verified no other encounters exist for this prescription request: Yes Caregiver confirmed with patient/requestor that no other refills are due, in the near future, with this provider at this time: Yes The last office visit in the department: 10/17/2023 Does the patient have a future office visit with this provider/department: Yes 04/23/2024 Requested Prescriptions Pending Prescriptions Disp Refills VENTOLIN HFA 90 mcg/actuation inhaler 18 g 11 Sig: Inhale 2 Puffs as instructed every 4 hours as needed for wheezing/shortness of breath. Sydni Simon RN December 31, 2023 3:53 PM documented in this encounter [facility] 12-31-2023 Telephone encounter Note The patient has been identified by name and date of : Yes Caregiver verified no other encounters exist for this prescription request: Yes Caregiver confirmed with patient/requestor that no other refills are due, in the near future, with this provider at this time: Yes The last office visit in the department: 10/17/2023 Does the patient have a future office visit with this provider/department: Yes 04/23/2024 Requested Prescriptions Pending Prescriptions Disp Refills VENTOLIN HFA 90 mcg/actuation inhaler 18 g 11 Sig: Inhale 2 Puffs as instructed every 4 hours as needed for wheezing/shortness of breath. Sydni Simon RN December 31, 2023 3:53 PM [facility] 12-20-2023 Telephone encounter Note The following approved medication requests have been transmitted electronically. Requested Prescriptions Signed Prescriptions Disp Refills VENTOLIN HFA 90 mcg/actuation inhaler 18 g 0 Sig: Inhale 2 Puffs as instructed every 4 hours as needed. Authorizing Provider: LIAM WILKINS MD [facility] 12-20-2023 Miscellaneous Notes The following approved medication requests have been transmitted electronically. Requested Prescriptions Signed Prescriptions Disp Refills VENTOLIN HFA 90 mcg/actuation inhaler 18 g 0 Sig: Inhale 2 Puffs as instructed every 4 hours as needed. Authorizing Provider: LIAM WILKINS MD Patient calling with request for refill of Ventolin Inhaler. She is almost out of medication and she is leaving for [place] tomorrow. She says [facility] is out of medication. She called [facility] and they have one in stock. She is asking for one refill to [facility]. Pended per request. Sydni Simon RN The patient has been identified by name and date of : Yes Caregiver verified no other encounters exist for this prescription request: Yes Caregiver confirmed with patient/requestor that no other refills are due, in the near future, with this provider at this time: Yes The last office visit in the department: 10/17/2023 Does the patient have a future office visit with this provider/department: Yes 04/23/2024 Requested Prescriptions Pending Prescriptions Disp Refills VENTOLIN HFA 90 mcg/actuation inhaler 18 g 0 Sig: Inhale 2 Puffs as instructed every 4 hours as needed. Sydni Simon RN December 20, 2023 2:40 PM documented in this encounter [facility] 12-20-2023 Telephone encounter Note Patient calling with request for refill of Ventolin Inhaler. She is almost out of medication and she is leaving for [place] tomorrow. She says [facility] is out of medication. She called [facility] and they have one in stock. She is asking for one refill to [facility]. Pended per request. Sydni Simon RN The patient has been identified by name and date of : Yes Caregiver verified no other encounters exist for this prescription request: Yes Caregiver confirmed with patient/requestor that no other refills are due, in the near future, with this provider at this time: Yes The last office visit in the department: 10/17/2023 Does the patient have a future office visit with this provider/department: Yes 04/23/2024 Requested Prescriptions Pending Prescriptions Disp Refills VENTOLIN HFA 90 mcg/actuation inhaler 18 g 0 Sig: Inhale 2 Puffs as instructed every 4 hours as needed. Sydni Simon RN December 20, 2023 2:40 PM [facility] 12-18-2023 Telephone encounter Note Patient asking if she can still schedule with cardiology. Advised referral is still active. Transferred to [facility] to schedule with cardiology. [facility] 12-18-2023 Miscellaneous Notes Patient asking if she can still schedule with cardiology. Advised referral is still active. Transferred to [facility] to schedule with cardiology. documented in this encounter [facility] 12-14-2023 History of Present illness Narrative Images from the original note were not included. PAIN EVALUATION 12/14/2023 1007 Pain Location: Shoulder-Left Description: Sore Frequency: Continuous Intervention/Comfort measure: Exercise;Cold;Medication tylenol Comments: PT stop per provider LAMBERT notes, patient has been doing exercises on her own Encounter Diagnosis ICD-10-CM 1. Osteoarthritis of shoulder, unspecified laterality, unspecified osteoarthritis type M19.019 Montserrat Aguayo returns for follow-up on pain of the left shoulder following arthroscopic surgery. She has stopped doing physical therapy and feels much better now. Focused examination of her left shoulder today does demonstrate improved ability to elevate and rotate the shoulder with less discomfort. PLAN: Today we discussed her improvement with stopping physical therapy. Light use of the arm and activity modification was recommended. She has questions today about how to perform exercises while avoiding pain. Her questions were answered today. Follow-up will be as needed. Regina Mcpherson MD Shoulder & Elbow Surgeon Department of Orthopaedic Surgery [facility] documented in this encounter [facility] 12-05-2023 Telephone encounter Note Pt notified of result & voiced understanding. Jayda Gaona LPN [facility] 12-05-2023 Miscellaneous Notes Pt notified of result & voiced understanding. Jayda Gaona LPN Repeat vit D is in normal range. documented in this encounter [facility] 12-05-2023 Telephone encounter Note Repeat vit D is in normal range. [facility] 11-30-2023 Note Formatting of this n ote might be different from the original. November 30, 2023 PID: [id number] Montserrat Aguayo [address] [place] [address] Dear Phd Aguayo, Your recent breast imaging exam on 11/30/2023 showed a possible finding that requires additional imaging studies for a complete evaluation. Most such findings are probably benign (not cancer). If you have a healthcare provider who ordered/prescribed your screening mammogram: Please call [phone] or EXT: [phone] to schedule an appointment for your additional imaging (if you have not already done so). If you DO NOT have a healthcare provider (ie you did not have an order/prescription for your screening mammogram): Please call to schedule an appointment for your additional imaging (if you have not already done so). You must have an order/prescription from your physician when calling to schedule your appointment. If your order/prescription is not electronic, you must bring the hard copy with you on the day of your exam to avoid delays. Your imaging studies and reports are kept on file at [facility] as part of your permanent medical record, and are available for your continuing care. Thank you for allowing us to help in meeting your health care needs. Sincerely, Dr. Han Interpreting Radiologist [facility] (Additional imaging) [facility] 11-30-2023 Miscellaneous Notes November 30, 2023 PID: [id number] Montserrat Aguayo [address] [place] [address] Dear Phd Aguayo, Your recent breast imaging exam on 11/30/2023 showed a possible finding that requires additional imaging studies for a complete evaluation. Most such findings are probably benign (not cancer). If you have a healthcare provider who ordered/prescribed your screening mammogram: Please call [phone] or EXT: [phone] to schedule an appointment for your additional imaging (if you have not already done so). If you DO NOT have a healthcare provider (ie you did not have an order/prescription for your screening mammogram): Please call to schedule an appointment for your additional imaging (if you have not already done so). You must have an order/prescription from your physician when calling to schedule your appointment. If your order/prescription is not electronic, you must bring the hard copy with you on the day of your exam to avoid delays. Your imaging studies and reports are kept on file at [facility] as part of your permanent medical record, and are available for your continuing care. Thank you for allowing us to help in meeting your health care needs. Sincerely, Dr. Han Interpreting Radiologist [facility] (Additional imaging) documented in this encounter [facility] 11-29-2023 Telephone encounter Note Patient informed and verbalized understanding. Petra Bonner MA [facility] 11-29-2023 Miscellaneous Notes Patient informed and verbalized understanding. Petra Bonner MA Let patient kow the US of her neck arteries showed no increased narrowing compared to US done in 2021. No changes needed and continue to monitor. documented in this encounter [facility] 11-28-2023 Telephone encounter Note Let patient kow the US of her neck arteries showed no increased narrowing compared to US done in 2021. No changes needed and continue to monitor. [facility] 11-13-2023 History of Present illness Narrative [employer] Supervisor offered: Patient declines. Mariano is a 73 year old who presents for an annual gynecologic exam without complaints. Started clobetasol crowley weeks itching already improved Postmenopausal: yes HRT use: No. Last Pap: 10/05/2020 normal HPV: 10/04/2020 negative History of abnormal pap: No Last mammogram: 2021 normal History of abnormal mammogram: Yes Lichen sclerosis OB History T2 L2 SAB0 IAB0 Ectopic0 Multiple0 Live Births0 Comment: menarche age 17; afb 37; natural menopause age 60 2 vaginal deliveries Box Car Bracer History LMP: 01/06/2009, Postmenopausal Age at Menarche: Age at First : Age at Menopause: Box Car Bracer History Comments: Sexual Activity: Not Currently; Male; prostate cancer Contraception: No contraception data on record PAST MEDICAL HISTORY Diagnosis Date Acquired hypothyroidism 11/29/2005 Bilateral carotid artery stenosis 07/13/2021 US: 06/2021: Stephen 20-40% 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, right (HCC) 10/05/2017 Cataracts, bilateral 12/20/2016 Some relation to steroids with her asthma. 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 Incomplete tear of left rotator cuff 04/16/2023 Internal hemorrhoids without mention of complication Irritable bowel syndrome with both constipation and diarrhea 07/28/2020 Labral tear of long head of left biceps tendon 04/16/2023 Lichen sclerosus Living will in place 01/04/2022 DPA: Deshawn () Mass of left lower leg 07/03/2018 Benign w/u Metabolic syndrome 04/19/2016 Mild persistent asthma 09/07/2011 Mitral valve disorders(424.0) Mixed hyperlipidemia 11/29/2005 Neural foraminal stenosis of cervical spine 03/21/2022 Mod-sever on the left Neutropenia, drug-induced (HCC) 08/11/2011 Obesity Over weight 10/17/2023 Plantar fasciitis 11/24/2013 Primary insomnia 07/06/2021 Right-sided chest wall pain 10/05/2017 Secondary to breast cancer radiation. RSD (reflex sympathetic dystrophy) Sebaceous cyst 01/20/2014 Spinal stenosis, unspecified region other than cervical 03/02/2006 Tear of left glenoid labrum 04/16/2023 Trigger ring finger of right hand 06/23/2014 Vitamin D deficiency 09/15/2019 PAST SURGICAL HISTORY Procedure Laterality Date ADENOIDECTOMY PRIMARY <AGE 14 Adenoidectomy BREAST BIOPSY CORE 04/11/2011 right breast 2:00, 4:00 and 10:00 BREAST BIOPSY INCISIONAL 14 years ago right and left breast- benign BREAST RECONSTRUC W FREE FLAP 12/13/2012 bilateral breast BREAST RECONSTRUC W TISS EXPANDR 05/25/2011 right breast with elevation of the serratus flap CARDIAC CATH 03/20/2017 normal, by Dr. Colvin COLONOSCOPY FLX DX W/COLLJ SPEC WHEN PFRMD 04/08/2007 COLONOSCOPY FLX DX W/COLLJ SPEC WHEN PFRMD N/A 09/06/2016 MAC COLONOSCOPY FLX DX W/COLLJ SPEC WHEN PFRMD 02/10/2019 Colonoscopy INSJ TUNNELED CTR VAD W/SUBQ PORT AGE 5 YR/> 07/06/2011 left IJ MASTECTOMY, SIMPLE, COMPLETE 05/25/2011 right breast skin-sparing with SLND/level 1 LND MASTECTOMY, SIMPLE, COMPLETE 12/13/2012 prophylactic left breast PAST SURGICAL HISTORY OF squamous cell skin ca nose, lips, face PAST SURGICAL HISTORY OF 1972 removal of sweat glands (bilateral axilla (right x 2)and groin) PAST SURGICAL HISTORY OF 03/06/2016 removal of polyp at [facility] [employer] COVID-19 VACCINE, AGE 12+ YR (PURPLE TOP) 09/11/2020 first vaccine REM LESION TRUNK,ARM, LEG <0.5 CM 01/24/2014 Exc. deyanira cyst left inframammary REPAIR ROTATOR CUFF,ACUTE Left 07/02/2023 RMVL MOISES CTR VAD W/SUBQ PORT/BUHR MILL OPERATOR CTR/PRPH INSJ 01/18/2012 Removal left IJ port RPR COMPLEX RETINA DETACH VITRECT &MEMBRANE PEEL 09/2014 left retina SIGMOIDOSCOPY FLX DX W/COLLJ SPEC BR/WA IF PFRMD 01/27/2002 Sigmoidoscopy TONSILLECTOMY PRIMARY/SECONDARY <AGE 12 Tonsillectomy FAMILY HISTORY Problem Relation Age of Onset Breast Cancer Mother dx in her 50's other (uterine cancer) Mother dx before breast cancer Aneurysm Mother Brain Heart Father MT, valve disorder Headache Sister other (other cances) Sister no known family h/o: ovarian; prostate, colon, pancreatic, lung, thyroid, brain, melenoma, leukemia, sarcomas No Known Problems Maternal Grandmother Heart Attack Maternal Grandfather other (rectal cancer) Paternal Grandmother 95 Colon Cancer Paternal Grandmother No Known Problems Paternal Grandfather No Known Problems Daughter Heart Son Breast Cancer Maternal Aunt 1) details unknown Breast Cancer Maternal Aunt 2) details unknown SOCIAL HISTORY Social History Tobacco Use Smoking status: Former Packs/day: 2.00 Years: 12.00 Additional pack years: 0.00 Total pack years: 24.00 Types: Cigarettes Quit date: 06/25/1981 Years since quittin.4 Smokeless tobacco: Never Vaping Use Vaping Use: Never used Substance Use Topics Alcohol use: Yes Alcohol/week: 7.0 standard drinks of alcohol Types: 7 Glasses of wine per week Comment: wine with meals Drug use: No REVIEW OF SYSTEMS Abdomen: No abdominal pain, nausea, vomiting, diarrhea, or constipation. No bloating, early satiety, indigestion, or increased flatulence. Bladder: No dysuria, gross hematuria, urinary frequency, urinary urgency, or incontinence Breast: No breast lumps, nipple d/c, overlying skin changes, redness or skin retraction Allergies and current medication updated:Yes EXAM: BP 128/82 Ht 5' 8 (1.73m) Wt 192 lb (87.1kg) LMP 01/06/2009 BMI 29.20 kg/(m^2). GENERAL: pleasant, female in no apparent distress HEENT: Normocephalic, atraumatic, mucus membranes moist, and no lesions NECK: Supple, full range of motion, no adenopathy, and thyroid normal DERMATOLOGY: Normal, without lesions, non-icteric, and non-hirsute BREAST: Patient declined due to mastectomy and free flap reconstruction CHEST: Normal inspiratory effort ABDOMEN: soft, non-tender, and no masses PELVIC: external genitalia normal, normal Bartholin's glands, urethra, Lobeco's glands, no cervical lesions, good vaginal support, physiologic discharge present, normal appearing perineal body and perianal region, vulvar lesion think pale skin. Erythema improved from last week BIMANUAL: uterus normal size, shape and consistency, no adnexal masses, and non-tender RECTOVAGINAL: deferred. NEURO: alert and oriented x3,exam grossly non-focal EXTREMITIES: normal ASSESSMENT/PLAN: 1) Health maintenance: Pap/HPV screening no longer needed Mammogram ordered 2) Follow up one year or sooner as needed Sangeetha South MD documented in this encounter [facility] 11-09-2023 Instructions Dianna Eller MD - 11/09/2023 3:01 PM EDT Images from the original note were not included. Bowel Preparation Instructions for: Golytely, Nulytely, Trilyte or Colyte (polyethylene glycol 3350 and electrolytes) IF YOU DO NOT FOLLOW THESE DIRECTIONS, YOUR COLONOSCOPY WILL BE CANCELLED. Zambrano Instructions: Your bowel must be empty so that your doctor can clearly view your colon. Follow all of the instructions in this handout EXACTLY as they are written. Do NOT eat any solid food the ENTIRE day before your colonoscopy. Drink only clear liquids. Buy your bowel preparation at least 5 days before your colonoscopy. TRANSPORTATION on the Day of Your Exam A responsible person MUST be present with you at Check In prior to your colonoscopy and REMAIN in the endoscopy area until you are discharged. You are NOT ALLOWED to drive, take a taxi or bus, or leave the Endoscopy Center ALONE. If you do not have a responsible livery car driver (family member or friend) with you to take you home, your exam cannot be done with sedation and will be cancelled. Please bring a list of all of your current medications, including any Over-the Counter medications with you. Medications If you take insulin, diabetic medications or blood thinners such as Coumadin (warfarin), Plavix (clopidogrel), Ticlid (ticlopidine hydrochloride), Agrylin (anagrelide), Xarelto (Rivaroxaban), Pradaxa (Dabigatran), Eliquis (Apixaban), and Effient (Prasugrel). You MUST call the doctors who orders those medicines for instructions on altering the dosage before your colonoscopy. All other medications should be taken the day of the exam with a sip of water including ASPIRIN. Five (5) Days Before Your Colonoscopy Do NOT take medicines that stop diarrhea - such as Imodium, Kaopectate, or Pepto Bismol. Do NOT take fiber supplements - such as Metamucil, Citrucel, or Perdiem. Do NOT take products that contain iron - such as multi-vitamins (the label lists what is in the products). Do NOT take Vitamin E. Buy the prescription bowel preparation solution at your local pharmacy or drugstore pharmacy. 1 05/2019 Bowel Preparation Instructions for: Golytely, Nulytely, Trilyte or Colyte (polyethylene glycol 3350 and electrolytes) Three (3) Days Before Your Colonoscopy Do NOT eat high-fiber foods - such as popcorn, beans, seeds (flax, sunflower, quinoa), multigrain bread, nuts, salad/vegetables, or fresh and dried fruit. One (1) Day Before Your Colonoscopy Only drink clear liquids the ENTIRE DAY before your colonoscopy. Do NOT eat any solid foods. Drink at least 8 ounces of clear liquids every hour after waking up. The clear liquids you can drink include: Clear Liquid (NO RED LIQUIDS) DO NOT DRINK Gatorade, Pedialyte or Powerade Clear broth or bouillon Coffee or tea (no milk or non-dairy creamer) Carbonated and non-carbonated soft drinks Owen-Aid or other fruit flavored drinks Strained fruit juices (no pulp) Jell-O, popsicles, hard candy Water Alcohol Milk or non-dairy creamers Noodles or vegetables in soup Juice with pulp Liquid you cannot see through Do not use tobacco/vaping products The bowel preparation solution will be consumed in two parts. Mix the solution the evening before your colonoscopy and refrigerate before drinking. You may add the flavor pack that came with the bowel preparation. Do NOT add ice, sugar or any other flavorings to the solution. Part 1 At 6:00 PM - Evening before your colonoscopy Drink an 8-oz glass of bowel preparation every 10 minutes for a total of 8 glasses. You may continue to drink clear liquids until midnight. Part 2 On the day of your colonoscopy you may drink clear liquids up to (three) 3 hours before your procedure. 4 1/2 hours before your colonoscopy Drink an 8-oz glass of bowel preparation every 10 minutes for a total of 8 glasses. Fifteen (15) minutes later, drink an 8-oz glass of clear liquids every 15 minutes for a total of 2 glasses. You may continue to drink clear liquids up to (three) 3 hours before your exam. 2 05/2019 documented in this encounter [facility] 11-09-2023 Nurse Note REVIEW OF SYSTEMS: General: The patient denies fatigue, NOTES weight loss, denies weight gain, denies feeling hot, and denies feelings of cold. Eyes: The patient denies glaucoma, NOTES eye injury/surgery, does not wear glasses or contacts. Ear/Nose/Throat: The patient NOTES allergies, NOTES hayfever, denies ear infections, and denies bloody noses. Cardiovascular: The patient denies chest pain, denies heart disease, denies high blood pressure,denies cardiac stent, denies prior heart attack, denies irregular heart beat, denies high cholesterol, denies poor circulation, denies heart failure, other cardiac issues, denies claudication, denies cold feet, denies peripheral arterial stent. Respiratory: The patient denies tuberculosis, denies pneumonia, denies frequent cough, denies pulmonary embolism, denies shortness of breath, and denies coughing up blood. Gastrointestinal: The patient denies difficulty swallowing, denies acid reflux, denies ulcers, denies vomiting, denies jaundice/hepatitis, denies gallbladder problems, denies black or tarry stools, denies hemorrhoids, denies bleeding from rectum, denies diverticulitis, denies constipation, denies diarrhea, denies loss of stool control, and denies hernias. Kidney/Bladder: The patient denies kidney stones, denies urine infections, and denies bloody urine. Skin: The patient NOTES a history of skin cancer, denies bleeding/changing moles, and denies a history of skin rash. Neurologic: The patient denies a history of epilepsy/convulsions, denies headaches, denies head/spinal injuries, and denies stroke/TIA. Psychiatric: The patient denies psychiatric medications, denies depression, and denies voices, denies substance abuse. Endocrine: The patient NOTES thyroid disorders, denies diabetes, and denies hormonal problems. Hematologic: The patient denies a history of bruising, denies bleeding, and denies anemia, denies blood clots. Infections: The patient denies a history of measles and mumps, denies rheumatic fever, and denies sexually transmitted diseases. Musculoskeletal: The patient denies back pain/injury, denies back problems, NOTES sciatica, denies knee/foot trouble, NOTES arthritis, or denies gout. When was patient's last Mammogram screening? 2021 Last Colonoscopy: 02/10/2019 Antionette Villagran MA [facility] 11-09-2023 Nurse Note REVIEW OF SYSTEMS: General: The patient denies fatigue, NOTES weight loss, denies weight gain, denies feeling hot, and denies feelings of cold. Eyes: The patient denies glaucoma, NOTES eye injury/surgery, does not wear glasses or contacts. Ear/Nose/Throat: The patient NOTES allergies, NOTES hayfever, denies ear infections, and denies bloody noses. Cardiovascular: The patient denies chest pain, denies heart disease, denies high blood pressure,denies cardiac stent, denies prior heart attack, denies irregular heart beat, denies high cholesterol, denies poor circulation, denies heart failure, other cardiac issues, denies claudication, denies cold feet, denies peripheral arterial stent. Respiratory: The patient denies tuberculosis, denies pneumonia, denies frequent cough, denies pulmonary embolism, denies shortness of breath, and denies coughing up blood. Gastrointestinal: The patient denies difficulty swallowing, denies acid reflux, denies ulcers, denies vomiting, denies jaundice/hepatitis, denies gallbladder problems, denies black or tarry stools, denies hemorrhoids, denies bleeding from rectum, denies diverticulitis, denies constipation, denies diarrhea, denies loss of stool control, and denies hernias. Kidney/Bladder: The patient denies kidney stones, denies urine infections, and denies bloody urine. Skin: The patient NOTES a history of skin cancer, denies bleeding/changing moles, and denies a history of skin rash. Neurologic: The patient denies a history of epilepsy/convulsions, denies headaches, denies head/spinal injuries, and denies stroke/TIA. Psychiatric: The patient denies psychiatric medications, denies depression, and denies voices, denies substance abuse. Endocrine: The patient NOTES thyroid disorders, denies diabetes, and denies hormonal problems. Hematologic: The patient denies a history of bruising, denies bleeding, and denies anemia, denies blood clots. Infections: The patient denies a history of measles and mumps, denies rheumatic fever, and denies sexually transmitted diseases. Musculoskeletal: The patient denies back pain/injury, denies back problems, NOTES sciatica, denies knee/foot trouble, NOTES arthritis, or denies gout. When was patient's last Mammogram screening? 2021 Last Colonoscopy: 02/10/2019 Antionette Villagran MA documented in this encounter [facility] 11-09-2023 History of Present illness Narrative HISTORY AND PHYSICAL Montserrat Aguayo 1950 REFERRING PHYSICIAN: Liam Wilkins MD CHIEF COMPLAINT: colon consult HPI: The patient is a 73 year old female referred for endoscopy. Montserrat notes unintentional weight loss - 20# in one year She also notes decreased appetite She denies rectal bleeding; denies blood in stools She denies abdominal pain She does note changes in bowel habits. She states that she has hard bowel movement then followed by loose bowel movements. In the past, she would note constipation, up to 5 days without a BMI. She is now drinking more free water but still alternating hard bowel movements with looose bowel movements She also notes increased eructation and increased abdominal bloating/gas. She last had a colonoscopy 2018 - hyperplastic polyps found; a colonoscopy in 2017 - hyperplastic polyps. She notes no colon cancer in her immediate family. PAST MEDICAL HISTORY Diagnosis Date Acquired hypothyroidism 11/29/2005 Bilateral carotid artery stenosis 07/13/2021 US: 06/2021: Stephen 20-40% 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, right (HCC) 10/05/2017 Cataracts, bilateral 12/20/2016 Some relation to steroids with her asthma. 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 Incomplete tear of left rotator cuff 04/16/2023 Internal hemorrhoids without mention of complication Irritable bowel syndrome with both constipation and diarrhea 07/28/2020 Labral tear of long head of left biceps tendon 04/16/2023 Lichen sclerosus Living will in place 01/04/2022 DPA: Deshawn () Mass of left lower leg 07/03/2018 Benign w/u Metabolic syndrome 04/19/2016 Mild persistent asthma 09/07/2011 Mitral valve disorders(424.0) Mixed hyperlipidemia 11/29/2005 Neural foraminal stenosis of cervical spine 03/21/2022 Mod-sever on the left Neutropenia, drug-induced (HCC) 08/11/2011 Obesity Over weight 10/17/2023 Plantar fasciitis 11/24/2013 Primary insomnia 07/06/2021 Right-sided chest wall pain 10/05/2017 Secondary to breast cancer radiation. RSD (reflex sympathetic dystrophy) Sebaceous cyst 01/20/2014 Spinal stenosis, unspecified region other than cervical 03/02/2006 Tear of left glenoid labrum 04/16/2023 Trigger ring finger of right hand 06/23/2014 Vitamin D deficiency 09/15/2019 PAST SURGICAL HISTORY Procedure Laterality Date ADENOIDECTOMY PRIMARY <AGE 14 Adenoidectomy BREAST BIOPSY CORE 04/11/2011 right breast 2:00, 4:00 and 10:00 BREAST BIOPSY INCISIONAL 14 years ago right and left breast- benign BREAST RECONSTRUC W FREE FLAP 12/13/2012 bilateral breast BREAST RECONSTRUC W TISS EXPANDR 05/25/2011 right breast with elevation of the serratus flap CARDIAC CATH 03/20/2017 normal, by Dr. Colvin COLONOSCOPY FLX DX W/COLLJ SPEC WHEN PFRMD 04/08/2007 COLONOSCOPY FLX DX W/COLLJ SPEC WHEN PFRMD N/A 09/06/2016 MAC COLONOSCOPY FLX DX W/COLLJ SPEC WHEN PFRMD 02/10/2019 Colonoscopy INSJ TUNNELED CTR VAD W/SUBQ PORT AGE 5 YR/> 07/06/2011 left IJ MASTECTOMY, SIMPLE, COMPLETE 05/25/2011 right breast skin-sparing with SLND/level 1 LND MASTECTOMY, SIMPLE, COMPLETE 12/13/2012 prophylactic left breast PAST SURGICAL HISTORY OF squamous cell skin ca nose, lips, face PAST SURGICAL HISTORY OF 1972 removal of sweat glands (bilateral axilla (right x 2)and groin) PAST SURGICAL HISTORY OF 03/06/2016 removal of polyp at [facility] [employer] COVID-19 VACCINE, AGE 12+ YR (PURPLE TOP) 09/11/2020 first vaccine REM LESION TRUNK,ARM, LEG <0.5 CM 01/24/2014 Exc. deyanira cyst left inframammary REPAIR ROTATOR CUFF,ACUTE Left 07/02/2023 RMVL MOISES CTR VAD W/SUBQ PORT/BUHR MILL OPERATOR CTR/PRPH INSJ 01/18/2012 Removal left IJ port RPR COMPLEX RETINA DETACH VITRECT &MEMBRANE PEEL 09/2014 left retina SIGMOIDOSCOPY FLX DX W/COLLJ SPEC BR/WA IF PFRMD 01/27/2002 Sigmoidoscopy TONSILLECTOMY PRIMARY/SECONDARY <AGE 12 Tonsillectomy Current Outpatient Medications Medication Sig clobetasol (TEMOVATE) 0.05 % ointment Apply 1 application to affected area two times a day. TO AFFECTED AREA. atorvastatin (LIPITOR) 40 mg tablet take 1 tablet by mouth once daily amitriptyline (ELAVIL) 25 mg tablet Take 2 tablets by mouth daily at bedtime. docusate sodium (COLACE) 100 mg capsule Take 1 capsule by mouth two times a day. levothyroxine (SYNTHROID) 100 mcg tablet Take 1 tablet by mouth daily before breakfast. ergocalciferol 50,000 unit capsule (VITAMIN D2, DRISDOL) Every other week fluticasone-salmeterol (ADVAIR, WIXELA) 250-50 mcg/dose inhaler Inhale 1 Puff as instructed two times a day. VENTOLIN HFA 90 mcg/actuation inhaler Inhale 2 Puffs as instructed every 4 hours as needed for wheezing/shortness of breath. acetaminophen (TYLENOL) 500 mg tablet Take 1,000 mg by mouth at bedtime as needed. albuterol (PROVENTIL) 2.5 mg /3 mL (0.083 %) nebulizer solution inhale 3 milliliters in nebulizer every 4 hours if needed for wheezing /SHORTNESS OF BREATH. USE OVER 5 -15 MINUTES COMPOUNDED PRESCRIPTION NEBULIZER and supplies FOR HOME USE. DX: J45.30, J45.90. Length of need is life. This is a medically necessary devise for management of patients lung disease. Current machine recently stopped working. While trying to use it started to smoke and stopped. (Patient taking differently: NEBULIZER and supplies FOR HOME USE. DX: J45.30, J45.90. Length of need is life. This is a medically necessary devise for management of patients lung disease. Current machine recently stopped working. While trying to use it started to smoke and stopped. As needed) peg 3350-Electrolytes (GOLYTELY) 236-22.74-6.74 -5.86 gram suspension Take 4,000 mL by mouth one time only for 1 dose. Refer to printed prep instructions from your provider. ondansetron orally disintegrating (ZOFRAN ODT) 4 mg disintegrating tablet Take 1 tablet by mouth every 8 hours as needed for nausea/vomiting. (Patient not taking: Reported on 10/17/2023) naproxen (NAPROSYN) 500 mg tablet Take 1 tablet by mouth two times a day as needed (for pain/inflammation). Take with food. (Patient not taking: Reported on 06/22/2023) pioglitazone (ACTOS) 30 mg tablet Take 1 tablet by mouth once daily. (Patient not taking: Reported on 11/09/2023) sertraline (ZOLOFT) 100 mg tablet Take one tablet by mouth once a day. (Patient not taking: Reported on 06/22/2023) No current facility-administered medications for this visit. ALLERGIES: Typhoid Vaccine, Adhesive Tape (Rosins), Cats, Diclofenac, Dogs, Dust, Meloxicam, Mold, and Tegretol [Carbamazepine Analogues] PERSONAL HISTORY: Social History Tobacco Use Smoking status: Former Packs/day: 2.00 Years: 12.00 Additional pack years: 0.00 Total pack years: 24.00 Types: Cigarettes Quit date: 06/25/1981 Years since quittin.4 Smokeless tobacco: Never Vaping Use Vaping Use: Never used Substance Use Topics Alcohol use: Yes Alcohol/week: 7.0 standard drinks of alcohol Types: 7 Glasses of wine per week Comment: wine with meals Drug use: No FAMILY HISTORY Problem Relation Age of Onset Breast Cancer Mother dx in her 50's other (uterine cancer) Mother dx before breast cancer Aneurysm Mother Brain Heart Father MT, valve disorder Headache Sister other (other cances) Sister no known family h/o: ovarian; prostate, colon, pancreatic, lung, thyroid, brain, melenoma, leukemia, sarcomas No Known Problems Maternal Grandmother Heart Attack Maternal Grandfather other (rectal cancer) Paternal Grandmother 95 Colon Cancer Paternal Grandmother No Known Problems Paternal Grandfather No Known Problems Daughter Heart Son Breast Cancer Maternal Aunt 1) details unknown Breast Cancer Maternal Aunt 2) details unknown The review of systems data was entered by the nurse and reviewed by mn Nursing Notes: Antionette Villagran MA 11/09/2023 2:58 PM Signed REVIEW OF SYSTEMS: General: The patient denies fatigue, NOTES weight loss, denies weight gain, denies feeling hot, and denies feelings of cold. Eyes: The patient denies glaucoma, NOTES eye injury/surgery, does not wear glasses or contacts. Ear/Nose/Throat: The patient NOTES allergies, NOTES hayfever, denies ear infections, and denies bloody noses. Cardiovascular: The patient denies chest pain, denies heart disease, denies high blood pressure,denies cardiac stent, denies prior heart attack, denies irregular heart beat, denies high cholesterol, denies poor circulation, denies heart failure, other cardiac issues, denies claudication, denies cold feet, denies peripheral arterial stent. Respiratory: The patient denies tuberculosis, denies pneumonia, denies frequent cough, denies pulmonary embolism, denies shortness of breath, and denies coughing up blood. Gastrointestinal: The patient denies difficulty swallowing, denies acid reflux, denies ulcers, denies vomiting, denies jaundice/hepatitis, denies gallbladder problems, denies black or tarry stools, denies hemorrhoids, denies bleeding from rectum, denies diverticulitis, denies constipation, denies diarrhea, denies loss of stool control, and denies hernias. Kidney/Bladder: The patient denies kidney stones, denies urine infections, and denies bloody urine. Skin: The patient NOTES a history of skin cancer, denies bleeding/changing moles, and denies a history of skin rash. Neurologic: The patient denies a history of epilepsy/convulsions, denies headaches, denies head/spinal injuries, and denies stroke/TIA. Psychiatric: The patient denies psychiatric medications, denies depression, and denies voices, denies substance abuse. Endocrine: The patient NOTES thyroid disorders, denies diabetes, and denies hormonal problems. Hematologic: The patient denies a history of bruising, denies bleeding, and denies anemia, denies blood clots. Infections: The patient denies a history of measles and mumps, denies rheumatic fever, and denies sexually transmitted diseases. Musculoskeletal: The patient denies back pain/injury, denies back problems, NOTES sciatica, denies knee/foot trouble, NOTES arthritis, or denies gout. When was patient's last Mammogram screening? 2021 Last Colonoscopy: 02/10/2019 Antionette Villagran MA PHYSICAL EXAMINATION: General: The patient is 73 year old female, well nourished, well hydrated in no acute distress. The patient is oriented to time, place, and person. VITALS: Blood pressure 116/62, pulse 84, weight 87.1 kg (192 lb), last menstrual period 01/06/2009. Body mass index is 29.19 kg/m . Head: Normal cephalic, atraumatic Eyes: pupils are equally round, sclera are clear/anicteric Neck is supple with no tracheal deviation Cardiac: normal heart sounds, regular Respiratory: Normal respiratory excursion and pattern. Abdominal exam: benign Extremities: no clubbing, cyanosis or edema. Neuro: non focal Psych: normal mood Assessment IMPRESSION: changes in bowel habits and decreased appetite with weight loss PLAN: I have discussed the above with the patient. I have offered colonoscopy , possible biopsies I have explained the procedure to the patient. I have counseled the patient as to the risks of the procedure, including but not limited to: infection, bleeding, injury to any intrabdominal organs such as liver/spleen, perforation of the GI tract, inability to complete the procedure, complications of anesthesia, etc. - the patient understands. I have explained to the patient the difference between IV conscious sedation and MAC anesthesia - and I have offered either, according to the patient's wishes. I have explained that with IV conscious sedation there is no anesthesia provider available and therefore there is a limitation of the amount of IV medications that can be given and that the patient may wake up in the middle of the procedure and/or experience pain/discomfort during the procedure. Further discussion was done and the patient was given the opportunity to ask questions and all questions were answered. The patient chooses MAC anesthesia. Patient was counseled that if there are changes in his/her medical condition, to let the office know if surgery should proceed. If there are changes in patient's medical condition from time of this encounter to the day of the procedure that preclude anesthesia, patient may have procedure cancelled for patient's safety. The patient wishes to proceed. I have answered all questions to the patient s satisfaction and the patient has no further questions. My clinic staff has educated the patient as to the colon cleansing regimen and I have prescribed Golytely for the colon cleansing solution. The patient will be scheduled for the procedure at [facility] Diagnoses: (R19.4) Altered bowel habits (primary encounter diagnosis) (Z12.11) Colon cancer screening I have confirmed and edited as necessary, the PFSH and ROS obtained by others. Consultation requested by Dr. Liam Wilkins for an opinion regarding patient's changes in bowel habits and decreased appetite with weight loss. My final recommendations will be communicated back to the requesting physician by way of shared Medical record or letter to requesting physician via US mail. Medical Decision Making: Risk: Moderate: Decision on minor surgery w/ risk factors Medical Decision Making Level: 2 - Straightforward Dianna Eller MD documented in this encounter [facility] 11-09-2023 History of Present illness Narrative Montserrat Aguayo is a 73 year old female who presents for problem visit lichen sclerosis HPI: Diagnosed years ago with lichen sclerosis. Improved for a while after radiation an chemo.Now having a recurrence of itching and burning. Wants to restart clobetasol. OB History T2 L2 SAB0 IAB0 Ectopic0 Multiple0 Live Births0 Comment: menarche age 17; afb 37; natural menopause age 60 2 vaginal deliveries Box Car Bracer History LMP: 01/06/2009, Postmenopausal Age at Menarche: Age at First : Age at Menopause: Box Car Bracer History Comments: Sexual Activity: Not Currently; Male; prostate cancer Contraception: No contraception data on record PAST MEDICAL HISTORY Diagnosis Date Acquired hypothyroidism 11/29/2005 Bilateral carotid artery stenosis 07/13/2021 US: 06/2021: Stephen 20-40% 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, right (HCC) 10/05/2017 Cataracts, bilateral 12/20/2016 Some relation to steroids with her asthma. 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 Incomplete tear of left rotator cuff 04/16/2023 Internal hemorrhoids without mention of complication Irritable bowel syndrome with both constipation and diarrhea 07/28/2020 Labral tear of long head of left biceps tendon 04/16/2023 Lichen sclerosus Living will in place 01/04/2022 DPA: Deshawn () Mass of left lower leg 07/03/2018 Benign w/u Metabolic syndrome 04/19/2016 Mild persistent asthma 09/07/2011 Mitral valve disorders(424.0) Mixed hyperlipidemia 11/29/2005 Neural foraminal stenosis of cervical spine 03/21/2022 Mod-sever on the left Neutropenia, drug-induced (HCC) 08/11/2011 Obesity Over weight 10/17/2023 Plantar fasciitis 11/24/2013 Primary insomnia 07/06/2021 Right-sided chest wall pain 10/05/2017 Secondary to breast cancer radiation. RSD (reflex sympathetic dystrophy) Sebaceous cyst 01/20/2014 Spinal stenosis, unspecified region other than cervical 03/02/2006 Tear of left glenoid labrum 04/16/2023 Trigger ring finger of right hand 06/23/2014 Vitamin D deficiency 09/15/2019 PAST SURGICAL HISTORY Procedure Laterality Date ADENOIDECTOMY PRIMARY <AGE 14 Adenoidectomy BREAST BIOPSY CORE 04/11/2011 right breast 2:00, 4:00 and 10:00 BREAST BIOPSY INCISIONAL 14 years ago right and left breast- benign BREAST RECONSTRUC W FREE FLAP 12/13/2012 bilateral breast BREAST RECONSTRUC W TISS EXPANDR 05/25/2011 right breast with elevation of the serratus flap CARDIAC CATH 03/20/2017 normal, by Dr. Colvin COLONOSCOPY FLX DX W/COLLJ SPEC WHEN PFRMD 04/08/2007 COLONOSCOPY FLX DX W/COLLJ SPEC WHEN PFRMD N/A 09/06/2016 MAC COLONOSCOPY FLX DX W/COLLJ SPEC WHEN PFRMD 02/10/2019 Colonoscopy INSJ TUNNELED CTR VAD W/SUBQ PORT AGE 5 YR/> 07/06/2011 left IJ MASTECTOMY, SIMPLE, COMPLETE 05/25/2011 right breast skin-sparing with SLND/level 1 LND MASTECTOMY, SIMPLE, COMPLETE 12/13/2012 prophylactic left breast PAST SURGICAL HISTORY OF squamous cell skin ca nose, lips, face PAST SURGICAL HISTORY OF 1972 removal of sweat glands (bilateral axilla (right x 2)and groin) PAST SURGICAL HISTORY OF 03/06/2016 removal of polyp at [facility] COVID-19 VACCINE, AGE 12+ YR (PURPLE TOP) 09/11/2020 first vaccine REM LESION TRUNK,ARM, LEG <0.5 CM 01/24/2014 Exc. deyanira cyst left inframammary REPAIR ROTATOR CUFF,ACUTE Left 07/02/2023 RMVL MOISES CTR VAD W/SUBQ PORT/BUHR MILL OPERATOR CTR/PRPH INSJ 01/18/2012 Removal left IJ port RPR COMPLEX RETINA DETACH VITRECT &MEMBRANE PEEL 09/2014 left retina SIGMOIDOSCOPY FLX DX W/COLLJ SPEC BR/WA IF PFRMD 01/27/2002 Sigmoidoscopy TONSILLECTOMY PRIMARY/SECONDARY <AGE 14 Tonsillectomy FAMILY HISTORY Problem Relation Age of Onset Breast Cancer Mother dx in her 50's other (uterine cancer) Mother dx before breast cancer Aneurysm Mother Brain Heart Father MT, valve disorder Headache Sister other (other cances) Sister no known family h/o: ovarian; prostate, colon, pancreatic, lung, thyroid, brain, melenoma, leukemia, sarcomas No Known Problems Maternal Grandmother Heart Attack Maternal Grandfather other (rectal cancer) Paternal Grandmother 95 Colon Cancer Paternal Grandmother No Known Problems Paternal Grandfather No Known Problems Daughter Heart Son Breast Cancer Maternal Aunt 1) details unknown Breast Cancer Maternal Aunt 2) details unknown Social History Tobacco Use Smoking status: Former Packs/day: 2.00 Years: 12.00 Additional pack years: 0.00 Total pack years: 24.00 Types: Cigarettes Quit date: 06/25/1981 Years since quittin.4 Smokeless tobacco: Never Vaping Use Vaping Use: Never used Substance Use Topics Alcohol use: Yes Alcohol/week: 7.0 standard drinks of alcohol Types: 7 Glasses of wine per week Comment: wine with meals Drug use: No Current Outpatient Medications Medication Sig atorvastatin (LIPITOR) 40 mg tablet take 1 tablet by mouth once daily amitriptyline (ELAVIL) 25 mg tablet Take 2 tablets by mouth daily at bedtime. docusate sodium (COLACE) 100 mg capsule Take 1 capsule by mouth two times a day. levothyroxine (SYNTHROID) 100 mcg tablet Take 1 tablet by mouth daily before breakfast. ergocalciferol 50,000 unit capsule (VITAMIN D2, DRISDOL) Every other week pioglitazone (ACTOS) 30 mg tablet Take 1 tablet by mouth once daily. (Patient not taking: Reported on 11/09/2023) fluticasone-salmeterol (ADVAIR, WIXELA) 250-50 mcg/dose inhaler Inhale 1 Puff as instructed two times a day. VENTOLIN HFA 90 mcg/actuation inhaler Inhale 2 Puffs as instructed every 4 hours as needed for wheezing/shortness of breath. acetaminophen (TYLENOL) 500 mg tablet Take 1,000 mg by mouth at bedtime as needed. albuterol (PROVENTIL) 2.5 mg /3 mL (0.083 %) nebulizer solution inhale 3 milliliters in nebulizer every 4 hours if needed for wheezing /SHORTNESS OF BREATH. USE OVER 5 -15 MINUTES COMPOUNDED PRESCRIPTION NEBULIZER and supplies FOR HOME USE. DX: J45.30, J45.90. Length of need is life. This is a medically necessary devise for management of patients lung disease. Current machine recently stopped working. While trying to use it started to smoke and stopped. (Patient taking differently: NEBULIZER and supplies FOR HOME USE. DX: J45.30, J45.90. Length of need is life. This is a medically necessary devise for management of patients lung disease. Current machine recently stopped working. While trying to use it started to smoke and stopped. As needed) clobetasol (TEMOVATE) 0.05 % ointment Apply 1 application to affected area two times a day. TO AFFECTED AREA. peg 3350-Electrolytes (GOLYTELY) 236-22.74-6.74 -5.86 gram suspension Take 4,000 mL by mouth one time only for 1 dose. Refer to printed prep instructions from your provider. ondansetron orally disintegrating (ZOFRAN ODT) 4 mg disintegrating tablet Take 1 tablet by mouth every 8 hours as needed for nausea/vomiting. (Patient not taking: Reported on 10/17/2023) naproxen (NAPROSYN) 500 mg tablet Take 1 tablet by mouth two times a day as needed (for pain/inflammation). Take with food. (Patient not taking: Reported on 06/22/2023) sertraline (ZOLOFT) 100 mg tablet Take one tablet by mouth once a day. (Patient not taking: Reported on 06/22/2023) No current facility-administered medications for this visit. Allergies As of Date: 11/09/2023 Allergen Noted Reaction TYPHOID VACCINE 05/12/2005 Intolerance ADHESIVE TAPE (ROSINS) 04/17/2011 Other: See Comments CATS 05/12/2005 Intolerance DICLOFENAC 01/04/2016 Other: See Comments DOGS 05/12/2005 Intolerance DUST 05/12/2005 Intolerance MELOXICAM 01/10/2016 Other: See Comments MOLD 05/12/2005 Intolerance TEGRETOL [CARBAMAZEPINE ANALOGUES]11/24/2008 Intolerance Fully Assessed 11/09/2023 REVIEW OF SYSTEMS Abdomen: No bloating, early satiety, indigestion, or increased flatulence. No abdominal pain, nausea, vomiting, diarrhea, or constipation. Bladder: No dysuria, gross hematuria, urinary frequency, urinary urgency, or incontinence. Breast: No breast lumps, nipple d/c, overlying skin changes, redness or skin retraction. Expanded ROS: CONVEYOR SYSTEM DISPATCHER: Negative for abnormal vaginal bleeding, abnormal vaginal discharge or Positive for vaginal itching Allergies and current medication updated:Yes EXAM: BP 116/62 Wt 192 lb (87.1kg) LMP 01/06/2009 GENERAL: pleasant, female in no apparent distress HEENT: Normocephalic, atraumatic, mucus membranes moist, and no lesions NECK: full range of motion DERMATOLOGY: Normal, without lesions, non-icteric, and non-hirsute BREAST: deferred CHEST: Normal inspiratory effort ABDOMEN: Deferred PELVIC: no vulvar lesions, skin changes consistent with lichen sclerosis. No lesions. No bleeding. No masses. Obliteration of labia. BIMANUAL: uterus normal size, shape and consistency, no adnexal masses, and non-tender NEURO: alert and oriented x3,exam grossly non-focal EXTREMITIES: normal ASSESSMENT AND PLAN: Encounter Diagnosis ICD-10-CM 1. Lichen sclerosus L90.0 clobetasol (TEMOVATE) 0.05 % ointment 2. History of right breast cancer Z85.3 3. H/O bilateral mastectomy Z90.13 clobetasol Sangeetha South MD documented in this encounter [facility] 11-02-2023 Telephone encounter Note Per Angelia: Called and spoke with patient. Please schedule this patient an appointment 3 months from her last for a repeat injection. Thanks, Megha Seymour PA-C Please schedule patient appointment 3 months from 10/26/23 (last office visit) as requested. L-shoulder Thank you, Mable Apodaca MA [facility] 11-02-2023 Miscellaneous Notes Per Angelia: Called and spoke with patient. Please schedule this patient an appointment 3 months from her last for a repeat injection. Thanks, Megha Seymour PA-C Please schedule patient appointment 3 months from 10/26/23 (last office visit) as requested. L-shoulder Thank you, Mable Apodaca MA Called patient and scheduled with Dr. Eller on 11/09/23 Left message for patient to contact office. Please patient with scheduling for colonoscopy. Namrata Clifford MA Let patient know I'm can not say for sure what Dr. Mcpherson ment in regards to exercising at the gym. I will forward this question to him as well so maybe he can have a nurse reach out to her to clarify more. Order placed for Gen surgery consult for colonoscopy. Patient calling and asking if orders can be placed for her to have colonoscopy done? See message below as well. Please review and advise, Theresa Elkins RN Patient did see Dr. Mcpherson who stated that the cartilage in her shoulder is deteriorating and had he recommended that she stop PT as this is causing more problems/worsening issue. She mentioned that he told her that she could go to the gym and work out but not to use weights during her work out. Patient is confused about his recommendations and asking for your advise. documented in this encounter [facility] 11-01-2023 Telephone encounter Note Called patient and scheduled with Dr. Eller on 11/09/23 [facility] 10-31-2023 Telephone encounter Note Left message for patient to contact office. Please patient with scheduling for colonoscopy. Namrata Clifford MA [facility] 10-31-2023 Telephone encounter Note Let patient know I'm can not say for sure what Dr. Mcpherson ment in regards to exercising at the gym. I will forward this question to him as well so maybe he can have a nurse reach out to her to clarify more. Order placed for Gen surgery consult for colonoscopy. [facility] 10-31-2023 Telephone encounter Note Patient calling and asking if orders can be placed for her to have colonoscopy done? See message below as well. Please review and advise, Theresa Elkins RN [facility] 10-31-2023 Telephone encounter Note Patient did see Dr. Mcpherson who stated that the cartilage in her shoulder is deteriorating and had he recommended that she stop PT as this is causing more problems/worsening issue. She mentioned that he told her that she could go to the gym and work out but not to use weights during her work out. Patient is confused about his recommendations and asking for your advise. [facility] 10-26-2023 History of Present illness Narrative Images from the original note were not included. PAIN EVALUATION 10/26/2023 0852 Pain Level: 6 Pain Location: Shoulder-Left Description: Sharp;Shooting;Aching Frequency: Intermittent Intervention/Comfort measure: Exercise;Heat;Cold;Medication tylenol arthritis Comments: PT Currently Encounter Diagnosis ICD-10-CM 1. Osteoarthritis of shoulder, unspecified laterality, unspecified osteoarthritis type M19.019 2. S/P shoulder surgery Z98.890 Montserrat Aguayo returns follow-up on left shoulder with persistent pain and difficulty with mobility nearly 4 months following arthroscopic biceps tenodesis. She has been doing physical therapy and there is concern that she is developing a frozen shoulder. I examined her left shoulder today. She demonstrates 140 degrees of active elevation 120 degrees of active side abduction. There is pain throughout her arc of motion. She does not have any weakness with rotator cuff testing. I reviewed her operative report. At the time of surgery there was findings of significant osteoarthritis with loss of cartilage and osteophyte formation at the posterior humeral head and glenoid. PLAN: Today we decided upon continued medical management of her pain due to early osteoarthritis of her shoulder. Long-term she may benefit from shoulder arthroplasty. She will use the arm for activities as tolerated. She will stretch daily. She will return as needed for continued medical treatments including corticosteroid injection if desired. Regina Mcpherson MD Shoulder & Elbow Surgeon Department of Orthopaedic Surgery [facility] documented in this encounter [facility] 10-24-2023 History of Present illness Narrative Images from the original note were not included. Episode Visit Count: 14 Therapist That Will Accept/Oversee The Plan Of Care: Alex Mendenhall Start of Care Date: 07/09/23 Onset Date: 07/02/23 Plan of Care Certification Date: 02/20/23 Next Certification Due Date: 03/26/23 [facility] PHYSICAL THERAPY PROGRESS REPORT PLAN OF CARE UPDATE: Assessment: Montserrat Aguayo demonstrates difficulty with lifting, physical activities, working, sleeping, reaching behind back, reaching overhead, use hand with arm at shoulder level, and grooming. She has progressed toward goals. Patient continues to present with impairments in ADL's, overall function, range of motion, strength, symptom management, and tissue tenderness that interfere with . Current prognosis is Fair due to: clinical presentation, multiple co- morbidities, chronic nature of impairments, limited tolerance to activity . She will benefit from continued skilled therapy services to meet the updated goals for this plan of care as noted below. Goals updated on 10/23/2023. Goals for Episode of Care: created on 07/09/23 through 11/22/23 Stuart in home exercise program. Met Patient will decrease pain rating by 2 points to meet minimal clinical important difference for numeric pain rating scale. Met Patient will increase active ROM of L elbow and shoulder to WNL to allow pt to to improve performance of ADLs. Progressing towards Patient will demonstrate increase in L shoulder strength to 4+/5 during manual muscle testing in order to improve function for basic self-care tasks, home management tasks, leisure / recreation skills, and prior functional tasks. Progressing Perform reaching, lifting, work tasks with decreased report of symptoms/pain in 8-12 weeks. Progressing Perform self care and sleeping without pain. Progressing towards Planned Interventions, Frequency, and Duration: 1x/week, 4 weeks Total Number of Visits Planned: 4 Patient to be seen for Therapeutic exercise (48895), Neuromuscular re-education (84613), Manual therapy (54855), Therapeutic activities (31501), Self-retirement management ([id number]), Patient/Family/Caregiver Education, Body Mechanics Training PLAN FOR NEXT VISIT: assess carry over from today's visit and follow up with surgeon. Needling an option, will monitor response SUBJECTIVE: Patient has had a rough week. She is not sure what caused it, but her pain went from intermittent to constant and progressive over the last week. Pain is isolated to the L shoulder superiorly and down the arm laterally to mid brachium. Pain: Pain Pain Level: 6 Pain Location: Shoulder - Left Description: Sore, Aching, Radiating, Sharp Frequency: Continuous PROMIS Scales 09/11/2023 09/04/2023 07/08/2023 Higher is Better Phys Func - Score 33 (moderate dysfunction) 35 (moderate dysfunction) Phys Func - Percentile 4 7 Self-Eff Symptom - Score 41 (Average) 50 (Average) Self-Eff Symptom - Percentile 18 50 T-scores: mean of general population = 50. 5 points is clinically meaningfully difference Percentiles provide an indication of how the patient's score ranks in relation to the general population. Higher percentile rankings indicate better function/quality of life. 50th percentile is the average of the general population and indicates half of respondents had a worse score. OBJECTIVE MEASURES WITH LEVEL OF FUNCTION: UE AROM L Shoulder Flex: 145 Degrees L Shoulder ABduction: 110 Degrees L Shoulder Internal Rotation (Functional): greater trochanter L Shoulder External Rotation (Functional): occiput/upper cervical Special Tests - Shoulder Shoulder Special Tests: Empty Can, [place] Empty Can: Left Negative [place]: Left Negative TREATMENT: Therapeutic Exercise: 1: Wall slides into flexion 3x10 2: Shoulder pulleys 3x10 into flexion/scaption 3: Shoulder iso's with light pressure 2x10, 1-2 sec holds 4: Wand ER 3x10 Skilled Intervention: Patient was educated in proper exercise technique and purpose for exercises. Skilled judgment was used in selection of appropriate interventions. Provided written instruction for home exercise program to facilitate proper performance and compliance. Correct performance of therapeutic exercises was facilitated with verbal, visual, and tactile cuing. Manual Therapy: 1: STM, TrPr, stripping to L infraspinatus, supraspinatus, Skilled Intervention: Manual skills to improve joint mobility, ROM, and decrease pain. Utilized anatomy knowledge of the therapist, and assessment of patient's response to intervention. Billing Therapeutic Exercise Treatment Minutes: 15 Manual TherapyTreatment Minutes: 27 Skilled Treatment Time Minutes (timed and untimed codes): 42 Total Session Time (minutes): 42 Session Start Time : 1718 Session Stop Time : 1800 Alex Mendenhall PT documented in this encounter [facility] 10-17-2023 Instructions Liam Wilkins MD - 10/17/2023 6:37 PM EDT Contact our orthopedic and ask if the labral tear was fixed. If no could this be what's still causing you to have pain in the superior part of the left shoulder. Please get your Vit D rechecked on or after 11/16/2023. Please get labs done on or after 04/04/2024 prior to your next visit. documented in this encounter [facility] 10-17-2023 History of Present illness Narrative Images from the original note were not included. Chief Complaint Patient presents with: Physical HPI Montserrat Aguayo is a 73 year old female who presents here today for Physical. Patient is here today with hx of Hypothyroidism, elevated A1c, GERD, hyperlipidemia, RSD, Vit D def, mild persistent asthma, Hx of breast cancer on the right side, obisity as well as those reviewed and addressed below Patient indicated that she has one more session in PT. Patient is still having trouble with left shoulder. Patient indicated loss of appetite. Food just doesn't taste good. She had lost weight after her surgery was down to 186 now back to 196. Said she has been drinking beer to put some weight back on. Patient was taking Tilden during thi time. Patient indicated she got flu shot/RSV/Covid shot in 02/24/2023. Will need to find out which RSV from [facility] in [place]. Past medical history, appointments, medications, allergies reviewed. Previous Medical History PAST MEDICAL HISTORY Diagnosis Date Acquired hypothyroidism 11/29/2005 Bilateral carotid artery stenosis 07/13/2021 US: 06/2021: Stephen 20-40% 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, right (HCC) 10/05/2017 Cataracts, bilateral 12/20/2016 Some relation to steroids with her asthma. 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 Incomplete tear of left rotator cuff 04/16/2023 Internal hemorrhoids without mention of complication Irritable bowel syndrome with both constipation and diarrhea 07/28/2020 Labral tear of long head of left biceps tendon 04/16/[address] 01/04/2022 DPA: Deshawn () Mass of left lower leg 07/03/2018 Benign w/u Metabolic syndrome 04/19/2016 Mild persistent asthma 09/07/2011 Mitral valve disorders(424.0) Mixed hyperlipidemia 11/29/2005 Neural foraminal stenosis of cervical spine 03/21/2022 Mod-sever on the left Neutropenia, drug-induced (HCC) 08/11/2011 Obesity Plantar fasciitis 11/24/2013 Primary insomnia 07/06/2021 Right-sided chest wall pain 10/05/2017 Secondary to breast cancer radiation. RSD (reflex sympathetic dystrophy) Sebaceous cyst 01/20/2014 Spinal stenosis, unspecified region other than cervical 03/02/2006 Tear of left glenoid labrum 04/16/2023 Trigger ring finger of right hand 06/23/2014 Vitamin D deficiency 09/15/2019 Previous Surgical History PAST SURGICAL HISTORY Procedure Laterality Date ADENOIDECTOMY PRIMARY <AGE 14 Adenoidectomy BREAST BIOPSY CORE 04/11/2011 right breast 2:00, 4:00 and 10:00 BREAST BIOPSY INCISIONAL 14 years ago right and left breast- benign BREAST RECONSTRUC W FREE FLAP 12/13/2012 bilateral breast BREAST RECONSTRUC W TISS EXPANDR 05/25/2011 right breast with elevation of the serratus flap CARDIAC CATH 03/20/2017 normal, by Dr. Colvin COLONOSCOPY FLX DX W/COLLJ SPEC WHEN PFRMD 04/08/2007 COLONOSCOPY FLX DX W/COLLJ SPEC WHEN PFRMD N/A 09/06/2016 MAC COLONOSCOPY FLX DX W/COLLJ SPEC WHEN PFRMD 02/10/2019 Colonoscopy INSJ TUNNELED CTR VAD W/SUBQ PORT AGE 5 YR/> 07/06/2011 left IJ MASTECTOMY, SIMPLE, COMPLETE 05/25/2011 right breast skin-sparing with SLND/level 1 LND MASTECTOMY, SIMPLE, COMPLETE 12/13/2012 prophylactic left breast PAST SURGICAL HISTORY OF squamous cell skin ca nose, lips, face PAST SURGICAL HISTORY OF 1972 removal of sweat glands (bilateral axilla (right x 2)and groin) PAST SURGICAL HISTORY OF 03/06/2016 removal of polyp at [facility] [employer] COVID-19 VACCINE, AGE 12+ YR (PURPLE TOP) 09/11/2020 first vaccine REM LESION TRUNK,ARM, LEG <0.5 CM 01/24/2014 Exc. 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 01/18/2012 Removal left IJ port RPR COMPLEX RETINA DETACH VITRECT &MEMBRANE PEEL 09/2014 left retina SIGMOIDOSCOPY FLX DX W/COLLJ SPEC BR/WA IF PFRMD 01/27/2002 Sigmoidoscopy TONSILLECTOMY PRIMARY/SECONDARY <AGE 12 Tonsillectomy Family History FAMILY HISTORY Problem Relation Age of Onset Breast Cancer Mother dx in her 50's other (uterine cancer) Mother dx before breast cancer Aneurysm Mother Brain Heart Father MT, valve disorder Headache Sister other (other cances) Sister no known family h/o: ovarian; prostate, colon, pancreatic, lung, thyroid, brain, melenoma, leukemia, sarcomas No Known Problems Maternal Grandmother Heart Attack Maternal Grandfather other (rectal cancer) Paternal Grandmother 95 No Known Problems Paternal Grandfather No Known Problems Daughter Heart Son Breast Cancer Maternal Aunt 1) details unknown Breast Cancer Maternal Aunt 2) details unknown Patient Allergies ALLERGIES Allergen Reactions Typhoid Vaccine Intolerance Adhesive Tape (Haley* Other: See Comments after 2 days area becomes red and itches Cats Intolerance Diclofenac Other: See Comments elevated liver enz Dogs Intolerance Dust Intolerance Meloxicam Other: See Comments Swollen eyelids Mold Intolerance Tegretol [Carb[place]aze* Intolerance blood problem Current Medications Current Outpatient Medications on File Prior to Visit Medication Sig atorvastatin (LIPITOR) 40 mg tablet take 1 tablet by mouth once daily amitriptyline (ELAVIL) 25 mg tablet Take 2 tablets by mouth daily at bedtime. ondansetron orally disintegrating (ZOFRAN ODT) 4 mg disintegrating tablet Take 1 tablet by mouth every 8 hours as needed for nausea/vomiting. docusate sodium (COLACE) 100 mg capsule Take 1 capsule by mouth two times a day. naproxen (NAPROSYN) 500 mg tablet Take 1 tablet by mouth two times a day as needed (for pain/inflammation). Take with food. (Patient not taking: Reported on 06/22/2023) levothyroxine (SYNTHROID) 100 mcg tablet Take 1 tablet by mouth daily before breakfast. ergocalciferol 50,000 unit capsule (VITAMIN D2, DRISDOL) Every other week pioglitazone (ACTOS) 30 mg tablet Take 1 tablet by mouth once daily. (Patient taking differently: Take 15 mg by mouth once daily.) fluticasone-salmeterol (ADVAIR, WIXELA) 250-50 mcg/dose inhaler Inhale 1 Puff as instructed two times a day. VENTOLIN HFA 90 mcg/actuation inhaler Inhale 2 Puffs as instructed every 4 hours as needed for wheezing/shortness of breath. sertraline (ZOLOFT) 100 mg tablet Take one tablet by mouth once a day. (Patient not taking: Reported on 06/22/2023) acetaminophen (TYLENOL) 500 mg tablet Take 1,000 mg by mouth at bedtime as needed. albuterol (PROVENTIL) 2.5 mg /3 mL (0.083 %) nebulizer solution inhale 3 milliliters in nebulizer every 4 hours if needed for wheezing /SHORTNESS OF BREATH. USE OVER 5 -15 MINUTES COMPOUNDED PRESCRIPTION NEBULIZER and supplies FOR HOME USE. DX: J45.30, J45.90. Length of need is life. This is a medically necessary devise for management of patients lung disease. Current machine recently stopped working. While trying to use it started to smoke and stopped. (Patient taking differently: NEBULIZER and supplies FOR HOME USE. DX: J45.30, J45.90. Length of need is life. This is a medically necessary devise for management of patients lung disease. Current machine recently stopped working. While trying to use it started to smoke and stopped. As needed) No current facility-administered medications on file prior to visit. Social History Social History Tobacco Use Smoking status: Former Packs/day: 2.00 Years: 12.00 Additional pack years: 0.00 Total pack years: 24.00 Types: Cigarettes Quit date: 06/25/1981 Years since quittin.3 Smokeless tobacco: Never Vaping Use Vaping Use: Never used Substance Use Topics Alcohol use: Yes Alcohol/week: 7.0 standard drinks of alcohol Types: 7 Glasses of wine per week Comment: wine with meals Drug use: No Review of Symptoms REVIEW OF SYSTEMS GENERAL: No malaise or fevers. See HPI HEENT: Negative for frequent or significant headaches, No changes in hearing or vision, no nose bleeds or other nasal problems. Just her allergies. NECK: Negative for lumps, goiter, pain and significant neck swelling RESPIRATORY: Negative for cough, hemoptysis, wheezing, COPD, dyspnea or shortness of breath CARDIOVASCULAR: Negative for chest pain, leg swelling, hypertension, CHF or palpitations GI: No nausea, vomiting, or diarrhea, No heartburn or reflux symptoms, and no blood : No history of dysuria, frequency or incontinence MUSCULOSKELETAL: Negative for new or changes in her typical joint pain or swelling, back pain or muscle pain SKIN: Negative for lesions, rash, and itching PSYCH: Negative for sleep disturbance, mood disorder and recent psychosocial stressors HEMATOLOGY/LYMPHOLOGY: Negative for prolonged bleeding, bruising easily or swollen nodes ENDOCRINE: Negative for cold or heat intolerance, polyuria, polydipsia and goiter NEURO: No history of headaches, syncope, paralysis, seizures or tremors EXAM: BP 118/70 (BP Site: Left Arm, BP Position: Sitting, BP Cuff Size: Large Adult) Pulse 84 Resp 16 Ht 172.7 cm (5' 8) Wt 88.9 kg (196 lb) LMP 01/06/2009 BMI 29.80 kg/m Last 15 Encounter Wt Readings: Date: Wt: 10/17/2023 88.9 kg (196 lb) 06/22/2023 89.4 kg (197 lb) 06/15/2023 92.1 kg (203 lb) 06/13/2023 92.1 kg (203 lb) 04/17/2023 94.3 kg (208 lb) 04/06/2023 93 kg (205 lb) 02/10/2023 95.7 kg (211 lb) 01/03/2023 97.4 kg (214 lb 12.8 oz) 10/25/2022 98.4 kg (217 lb) 09/22/2022 98.4 kg (217 lb) 09/15/2022 0 kg () 09/09/2022 99.8 kg (220 lb) 08/16/2022 101.5 kg (223 lb 12.8 oz) 05/24/2022 97.1 kg (214 lb) 03/21/2022 0 kg () General Appearance: Well appearing, alert, in no acute distress, well-hydrated, well nourished.. Skin: Skin color, texture, turgor normal, no suspicious rashes or lesions. Head: Normocephalic, no masses, lesions, tenderness or abnormalities. Eyes: Anicteric sclera. Pupils are equally round and reactive to light. Extraocular movements are intact. . Ears: External ears, TM's normal, canals clear. Nose/Sinuses: Nares normal, septum midline, mucosa normal, no drainage or sinus tenderness. Oropharynx: Lips, mucosa, and tongue normal, teeth and gums normal, oropharynx normal. Neck: Supple, no adenopathy; thyroid symmetric, normal size, no bruits. Lungs: Lungs clear to auscultation. No wheezing, rhonchi, rales.. Heart: RRR without murmur, gallop, or rubs. No ectopy. Abdomen: Normal abdominal exam, Abdomen soft, non-tender. Bowel sounds normal. No masses, organomegaly. Extremities: No deformities, edema, skin discoloration, Good capillary refill. . Musculoskeletal: Muscular strength intact, No joint swelling, deformity, or tenderness. Peripheral Pulses: Normal. Neurologic: Gait normal. Reflexes normal and symmetric. Sensation to light touch and crainal nerves 2-12 intact.. Health Maintenance List Covid-19 Vaccine( season) due on 04/21/2023 Advance Directive Discussion due on 06/25/2023 Behavioral Health Screening Never done Colorectal Cancer Screening due on 02/11/2024 Annual PCP Team Chronic Disease Visit due on 06/15/2024 Diabetes Screening due on 10/03/2026 Lipid Screening due on 10/03/2028 DTaP,Tdap,Td Vaccine(4 - Td or Tdap) due on 06/10/2030 Bone Density Screening Completed Influenza Vaccine Completed RSV Vaccine Completed Hepatitis C Screening Completed Shingrix Vaccine Completed Pneumococcal Vaccine: 65+ Completed HPV Vaccine Aged Out Mammogram Screening Discontinued Spirometry Discontinued Data reviewed Latest Ref Rng 08/29/2022 03/26/2023 10/04/2023 WBC 3.70 - 11.00 k/uL 5.29 6.00 RBC 3.90 - 5.20 m/uL 4.61 4.39 Hemoglobin 11.5 - 15.5 g/dL 13.5 13.1 Hematocrit 36.0 - 46.0 % 41.7 41.1 MCV 80.0 - 100.0 fL 90.5 93.6 MCH 26.0 - 34.0 pg 29.3 29.8 MCHC 30.5 - 36.0 g/dL 32.4 31.9 RDW-CV 11.5 - 15.0 % 13.0 13.4 Platelet Count 150 - 400 k/uL 254 289 MPV 9.0 - 12.7 fL 10.1 9.9 Neut% % 67.4 58.2 Abs Neut (ANC) 1.45 - 7.50 k/uL 3.57 3.49 Lymph% % 18.9 27.0 Abs Lymph 1.00 - 4.00 k/uL 1.00 1.62 Mcdowell% % 7.6 8.0 Abs [place] <0.87 k/uL 0.40 0.48 Eosin% % 4.9 6.0 Abs Eosin <0.46 k/uL 0.26 0.36 Baso% % 0.6 0.5 Abs Baso <0.11 k/uL 0.03 0.03 Immature Gran % % 0.6 0.3 IMMATURE GRANS (ABS) <0.10 k/uL 0.03 <0.03 NRBC /100 WBC 0.0 0.0 Absolute nRBC <0.01 k/uL <0.01 <0.01 DTYPE Auto Auto Color Yellow Yellow Yellow Clarity Clear Clear Clear Glucose, Urine Negative Negative Negative Bilirubin, Urine Negative Negative Negative Ketones, Urine Negative Negative Negative Specific [place], Ur 1.005 - 1.030 1.019 1.006 Hemoglobin/Blood,Ur Negative Negative Negative pH, Urine <8.5 6.0 7.5 Protein, Urine Negative Trace Negative Urobilinogen 0.2-1.0 EU/dL Negative 0.2 EU/dL Nitrites Negative Negative Negative Leukest Negative 500 Aaliyah/uL ! Trace ! WBC, Urine 0-5 /HPF 6-10 /HPF ! 0-5 /HPF RBC, Urine 0-2 /HPF 0-3 /HPF 0-2 /HPF Bacteria Negative /HPF Negative Epithelial Cells /HPF Few None Seen Hyaline Cast 0 /LPF 0 /LPF Protein, Total 6.3 - 8.0 g/dL 7.1 6.9 Albumin 3.9 - 4.9 g/dL 4.3 4.4 Calcium 8.5 - 10.2 mg/dL 9.5 9.5 Bilirubin, Total 0.2 - 1.3 mg/dL 0.5 0.4 Alkaline Phosphatase 34 - 123 U/L 86 80 AST 13 - 35 U/L 26 26 ALT 7 - 38 U/L 24 19 Glucose 74 - 99 mg/dL 117 (H) 90 BUN 7 - 21 mg/dL 8 11 Creatinine 0.58 - 0.96 mg/dL 0.76 0.63 Sodium 136 - 144 mmol/L 138 140 Potassium 3.7 - 5.1 mmol/L 4.1 4.5 Chloride 97 - 105 mmol/L 104 103 CO2 22 - 30 mmol/L 25 28 Anion Gap 9 - 18 mmol/L 9 9 eGFR >=60 mL/min/1.73m 84 95 Non-Squamous Epithelial Cells None Seen /HPF Few ! Total Cholesterol, Nonfasting <200 mg/dL 207 (H) 195 174 Triglycerides, Nonfasting <150 mg/dL 100 65 90 HDL Cholesterol, Nonfasting >39 mg/dL 78 94 71 LDL Cholesterol, Nonfasting <100 mg/dL 109 (H) 88 85 Non HDL Cholesterol, Nonfasting <130 mg/dL 129 101 103 VLDL Cholesterol, Nonfasting <30 mg/dL 20 13 18 Total Chol/HDL Ratio, Nonfasting <5.10 mg/dL 2.65 2.07 2.45 LDL/HDL Ratio, Nonfasting <2.54 mg/dL 1.40 0.94 1.20 Hemoglobin A1C 4.3 - 5.6 % 5.7 (H) 5.9 (H) 5.3 Estimated Average Glucose mg/dL 117 123 105 Vitamin D 25 Hydroxy 31.0 - 80.0 ng/mL 74.5 69.6 91.5 (H) TSH 0.270 - 4.200 mIU/L 1.230 0.705 1.030 A/P ASSESSMENT/PLAN: 1. Well adult exam - ICD9: V70.0, ICD10: Z00.00 (primary diagnosis) - Counseled on healthy diet and regular exercise - Discussed need and benefit for weight loss. BMI 29.80 kg/(m^2) - Patient was counseled [id number] by myself (the billing provider) for the following immunizations and vaccine components, including side effects: COVID-19. Patient consents for immunization and understands risks and benefits. A VIS sheet on each immunization was given to the patient. - Follow up for annual exam in one year 2. Mixed hyperlipidemia - ICD9: 272.2, ICD10: E78.2 - Controlled - Continue current medications - Counseled on healthy diet and regular exercise - Discussed need for and benefit of weight loss. BMI 29.80 kg/(m^2) 3. Elevated hemoglobin A1c - ICD9: 790.29, ICD10: R73.09 - much improved with life style changes. 4. Bilateral carotid artery stenosis - ICD9: 433.10, 433.30, ICD10: I65.23 - 5. Acquired hypothyroidism - ICD9: 244.9, ICD10: E03.9 - Instructed patient on importance of taking on an empty stomach either first thing in the morning or at bedtime. - continue current dose of Synthroid 6. Mild persistent asthma without complication - ICD9: 493.90, ICD10: J45.30 - Mild persistent asthma stable - Continue current medications - Avoidance of triggers recommended 7. Gastroesophageal reflux disease without esophagitis - ICD9: 530.81, ICD10: K21.9 - controlled with diet. 8. Neutropenia, drug-induced (HCC) - ICD9: 288.03, E980.5, ICD10: D70.2 - recent lab was normal and will monitor 9. Vitamin D deficiency - ICD9: 268.9, ICD10: E55.9 Patient to stay off the 50,000 international unit(s) 's and cont the centrum. In a month check - VITAMIN D 25 HYDROXY 10. RSD (reflex sympathetic dystrophy) - ICD9: 337.20, ICD10: G90.50 - stable with Elavil 11. Over weight - ICD9: 278.02, ICD10: E66.3 - patient to continue to work on weight loss. 12. 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, right (HCC) - ICD9: 174.9, ICD10: C50.911 - needs to make an appt 13. Irritable bowel syndrome with both constipation and diarrhea - ICD9: 564.1, ICD10: K58.2 - stable on Elavil 14. Fatty liver - ICD9: 571.8, ICD10: K76.0 - improved labs FIB-4 Calculation: 1.47 at 10/04/2023 8:03 AM Calculated from: SGOT/AST: 26 U/L at 10/04/2023 8:03 AM SGPT/ALT: 19 U/L at 10/04/2023 8:03 AM Platelets: 289 k/uL at 10/04/2023 8:03 AM Age: 73 years 15. Incomplete tear of left rotator cuff, unspecified whether traumatic - ICD9: 840.4, ICD10: M75.112 - patient to reach out to her ortho physician 16. Encounter for immunization - ICD9: V03.89, ICD10: Z23 - [employer] COVID-19 VACCINE ( SE[place]) AGE 12+ YR given F/u 6 months routine check A1c, TSH Lipid Liam Wilkins MD documented in this encounter [facility] 10-10-2023 History of Present illness Narrative Episode Visit Count: 13 Therapist That Will Accept/Oversee The Plan Of Care: Alex Mendenhall Start of Care Date: 07/09/23 Onset Date: 07/02/23 Plan of Care Certification Date: 02/20/23 Next Certification Due Date: 03/26/23 [facility] PHYSICAL THERAPY TREATMENT NOTE ASSESSMENT: Montserrat Aguayo tolerated the session with no issues. She demonstrated difficulty with active use of LUE and trigger points creating referred pain. The patient will continue to benefit from ongoing skilled physical therapy to progress toward set goals and to continue with post-operative protocol. PLAN FOR NEXT VISIT: Continue manual as tolerated, great candidate for further needling SUBJECTIVE: Patient had ~2 days of increased soreness following the dry needling. Notes that arm is better but still has overall soreness with ocassional referral down to mid brachium. Pain: Pain Pain Level: 3 Pain Location: Shoulder - Left Description: Sore Frequency: Continuous OBJECTIVE MEASURES WITH LEVEL OF FUNCTION: Palpation to supraspinatus and infraspinatus refer pain down arm and into shoulder joint TREATMENT: Therapeutic Exercise: 1: Wall slides in FF and scaption w/ towel x10 ea 2: Shoulder pulleys 2x20 3: PROM shoulder flexion, abduction 2x20 each 4: PROM functional IR 2x10 5: PROM wand ER 2x10 Skilled Intervention: Patient was educated in proper exercise technique and purpose for exercises. Skilled judgment was used in selection of appropriate interventions. Provided written instruction for home exercise program to facilitate proper performance and compliance. Correct performance of therapeutic exercises was facilitated with verbal, visual, and tactile cuing. Manual Therapy: 1: STM and stripping to supraspinatus, infraspinatus Skilled Intervention: Manual skills to improve joint mobility, ROM, and decrease pain. Utilized anatomy knowledge of the therapist, and assessment of patient's response to intervention. Billing Therapeutic Exercise Treatment Minutes: 25 Manual TherapyTreatment Minutes: 15 Skilled Treatment Time Minutes (timed and untimed codes): 40 Total Session Time (minutes): 40 Session Start Time : 1548 Session Stop Time : 1628 Alex Mendenhall PT Program_ID:[id number] Access Code: [email or web address] URL: [email or web address] Date: 10-09-2023 Prepared By: Sherry Bruce Program Notes Exercises - Seated Shoulder Flexion AAROM with Julio Behind - 1 x daily - 7 x weekly - 3 sets - 10 reps - Seated Shoulder Abduction AAROM with Julio Behind - 1 x daily - 7 x weekly - 3 sets - 10 reps - Supine Shoulder External Rotation in 45 Degrees Abduction AAROM with Dowel - 1 x daily - 7 x weekly - 3 sets - 10 reps - Standing Shoulder Internal Rotation AAROM with Dowel - 1 x daily - 7 x weekly - 3 sets - 10 reps documented in this encounter [facility] 10-03-2023 History of Present illness Narrative Episode Visit Count: 12 Therapist That Will Accept/Oversee The Plan Of Care: Alex Mendenhall Start of Care Date: 07/09/23 Onset Date: 07/02/23 Plan of Care Certification Date: 02/20/23 Next Certification Due Date: 03/26/23 REHABILITATION AND SPORTS THERAPY PHYSICAL THERAPY TREATMENT NOTE ASSESSMENT: Montserrat Aguayo tolerated the session with decreased symptoms. She demonstrated difficulty with referred pain down LUE, which was reproduced today with needling to the L supraspinatus. The patient will continue to benefit from ongoing skilled physical therapy to progress toward set goals. PLAN FOR NEXT VISIT: Assess carry over from needling SUBJECTIVE: Pt presents to clinic w/ L shoulder pain, as soreness, in supraspinatus region. Pain: Pain Pain Level: 5 Pain Location: Shoulder - Left Description: Sore Frequency: Continuous OBJECTIVE MEASURES WITH LEVEL OF FUNCTION: TREATMENT: Therapeutic Exercise: 1: Wall slides in FF and scaption w/ towel x10 ea 2: wall wash ccw/cw x10 ea 3: Shoulder pulleys 2x20 4: PROM shoulder flexion 5: Post scapular tilt during wall slides Skilled Intervention: Patient was educated in proper exercise technique and purpose for exercises. Skilled judgment was used in selection of appropriate interventions. Provided written instruction for home exercise program to facilitate proper performance and compliance. Correct performance of therapeutic exercises was facilitated with verbal, visual, and tactile cuing. Manual Therapy: 1: STM and stripping to supraspinatus/spine of scapula area. 2: MWM L shoulder FF faclilitating posterior tilt of scapula x15 3: STM and stripping to pec minor Dry Needling: (1) 50 mm needle to L upper trap with pistoning and fanning to pt tolerance (patient consent gained. (1) needle in (1) needle out) Skilled Intervention: Manual skills to improve joint mobility, ROM, and decrease pain. Utilized anatomy knowledge of the therapist, and assessment of patient's response to intervention. Billing Therapeutic Exercise Treatment Minutes: 20 Manual TherapyTreatment Minutes: 34 Skilled Treatment Time Minutes (timed and untimed codes): 54 Total Session Time (minutes): 54 Session Start Time : 1346 Session Stop Time : 1440 Alex Mendenhall PT documented in this encounter [facility] 09-28-2023 History of Present illness Narrative Megha Seymour PA-C Department of Orthopaedics September 28, 2023 SURGERY: Left shoulder arthroscopic biceps tenodesis SUBJECTIVE: Returns to clinic now 3 months status post the above procedure. Progressing with PT. Still having pain in the anterior and posterior shoulder. Exam: Examination of shoulder reveals active forward elevation to 150. ER to 30 Difficulty with IR to side pocket. Normal biceps contour. ASSESSMENT: Z98.890 S/P shoulder surgery (primary encounter diagnosis) SUMMARY/PLAN: Patient is improving but still having pain and stiffness. Recommend she continue daily stretching and plan recheck in 8-12 weeks to ensure improvement. Megha Seymour PA-C documented in this encounter [facility] 09-26-2023 History of Present illness Narrative Episode Visit Count: 11 Therapist That Will Accept/Oversee The Plan Of Care: Alex Mendenhall Start of Care Date: 07/09/23 Onset Date: 07/02/23 Plan of Care Certification Date: 02/20/23 Next Certification Due Date: 03/26/23 REHABILITATION AND SPORTS THERAPY PHYSICAL THERAPY TREATMENT NOTE ASSESSMENT: Montserrat Aguayo tolerated the session with expected muscle soreness. She demonstrated difficulty with symptom modulation and improvements in LUE AROM quality of motion. The patient will continue to benefit from ongoing skilled physical therapy to progress toward set goals. Patient's pain continues to be mechanical, and can be resolved with improved form. PLAN FOR NEXT VISIT: Assess tolerance and adherence to HEP additions, begin more AAROM eccentric exercise if needed. SUBJECTIVE: Pt presents to clinic w/ L shoulder pain and tightness, reports that motion feels better but pain does not. Pain: Pain Pain Level: 1 Pain Location: Shoulder - Left Description: Tightness Frequency: Intermittent OBJECTIVE MEASURES WITH LEVEL OF FUNCTION: Pt was able to complete LUE FF w/ decreased pain after exercise and manuals TREATMENT: Therapeutic Exercise: 1: Shoulder julio x 3min 2: ABC's x1 3: Shoulder FF w/ lift off 4: Shoulder scaption partial AAROM eccentric, 1# x10 3 count eccentric Skilled Intervention: Patient was educated in proper exercise technique and purpose for exercises. Skilled judgment was used in selection of appropriate interventions. Educated patient on rationale for performing exercises in regards to increase ease of ADL and ROM and function . Patient education as noted. Manual Therapy: 1: STM and push to tolerance on supraspinatus, infraspinatus, teres minor, and muscle belly of biceps brachii. 2: STM and CFM to anterior deltoid, use of skin distraction w/ rolling Skilled Intervention: Manual skills to improve joint mobility, ROM, and decrease pain. Utilized anatomy knowledge of the therapist, and assessment of patient's response to intervention. Billing Therapeutic Exercise Treatment Minutes: 26 Manual TherapyTreatment Minutes: 32 Skilled Treatment Time Minutes (timed and untimed codes): 58 Total Session Time (minutes): 58 Session Start Time : 1348 Session Stop Time : 1446 EDSON Torre Supervising therapist was present and guided the care of the patient for the entire session on this date. All documentation was reviewed and agreed upon. Alex Mendenhall PT Program_ID:[id number] Access Code: [email or web address] URL: [email or web address] Date: 09-26-2023 Prepared By: Sherry Bruce Program Notes Exercises - Standing Circular Shoulder Pendulum Supported with Arm Bent - 1 x daily - 7 x weekly - 3 sets - 10 reps - Seated Shoulder Flexion Table Top Stretch - 1 x daily - 7 x weekly - 3 sets - 10 reps - Supine Shoulder External Rotation with Dowel - 1 x daily - 7 x weekly - 3 sets - 10 reps - Isometric Shoulder Flexion at Wall - 1 x daily - 7 x weekly - 3 sets - 10 reps - Standing Isometric Shoulder Internal Rotation at Doorway - 1 x daily - 7 x weekly - 3 sets - 10 reps - Isometric Shoulder Abduction at Wall - 1 x daily - 7 x weekly - 3 sets - 10 reps - Standing Isometric Shoulder External Rotation with Doorway - 1 x daily - 7 x weekly - 3 sets - 10 reps - Standing Wall Ball Circles with Mini French Ball - 1 x daily - 7 x weekly - 3 sets - 10 reps - Single Arm Serratus Punches in Supine with Dumbbell - 1 x daily - 7 x weekly - 3 sets - 10 reps - Standing Eccentric Shoulder Flexion at Wall - 1 x daily - 7 x weekly - 2 sets - 10 reps documented in this encounter [facility] 09-19-2023 History of Present illness Narrative Program_ID:[id number] Access Code: [email or web address] URL: [email or web address] Date: 09-19-2023 Prepared By: Sherry Bruce Program Notes Exercises - Standing Circular Shoulder Pendulum Supported with Arm Bent - 1 x daily - 7 x weekly - 3 sets - 10 reps - Seated Shoulder Flexion Table Top Stretch - 1 x daily - 7 x weekly - 3 sets - 10 reps - Supine Shoulder External Rotation with Dowel - 1 x daily - 7 x weekly - 3 sets - 10 reps - Isometric Shoulder Flexion at Wall - 1 x daily - 7 x weekly - 3 sets - 10 reps - Standing Isometric Shoulder Internal Rotation at Doorway - 1 x daily - 7 x weekly - 3 sets - 10 reps - Isometric Shoulder Abduction at Wall - 1 x daily - 7 x weekly - 3 sets - 10 reps - Standing Isometric Shoulder External Rotation with Doorway - 1 x daily - 7 x weekly - 3 sets - 10 reps - Standing Wall Ball Circles with Mini French Ball - 1 x daily - 7 x weekly - 3 sets - 10 reps - Single Arm Serratus Punches in Supine with Dumbbell - 1 x daily - 7 x weekly - 3 sets - 10 reps Images from the original note were not included. Episode Visit Count: 10 Therapist That Will Accept/Oversee The Plan Of Care: Alex Mendenhall Start of Care Date: 07/09/23 Onset Date: 07/02/23 Plan of Care Certification Date: 02/20/23 Next Certification Due Date: 03/26/23 REHABILITATION AND SPORTS THERAPY PHYSICAL THERAPY PROGRESS REPORT PLAN OF CARE UPDATE: Assessment: Montserrat Aguayo demonstrates difficulty with heavy exertion, lifting, physical activities, recreational activities, working, cleaning, cooking, dressing, and grooming and improvements in physical activities and recreational activities. She has progressed toward goals. Patient continues to present with impairments in ADL's, posture, range of motion, and strength that interfere with heavy exertion, lifting, physical activities, recreational activities, working, cleaning, cooking, dressing, driving, grooming, reaching overhead, reaching behind back . Current prognosis is Good due to: current objective clinical presentation, good overall health status, positive past response to therapy, within-session changes . She will benefit from continued skilled therapy services to meet the updated goals for this plan of care as noted below. Goals updated on 09/18/2023. Goals for Episode of Care: created on 07/09/23 through 10/08/23 Stuart in home exercise program. Met Patient will decrease pain rating by 2 points to meet minimal clinical important difference for numeric pain rating scale. Met Patient will increase active ROM of L elbow and shoulder to WNL to allow pt to to improve performance of ADLs. Progressing towards Patient will demonstrate increase in L shoulder strength to 4+/5 during manual muscle testing in order to improve function for basic self-care tasks, home management tasks, leisure / recreation skills, and prior functional tasks. Progressing Perform reaching, lifting, work tasks with decreased report of symptoms/pain in 8-12 weeks. Progressing Perform self care and sleeping without pain. Progressing towards Patient Goals: gain full strength and have independence in functional ADLs Planned Interventions, Frequency, and Duration: 1x/week, 4 weeks Total Number of Visits Planned: 4 Patient to be seen for Therapeutic exercise (02584), Neuromuscular re-education (36194), Manual therapy (59030), Self-retirement management (30377), Body Mechanics Training PLAN FOR NEXT VISIT: Assess tolerance and adherence to new HEP changes; as well as tolerance to previous session. SUBJECTIVE: Pt presents to clinic w/ tightness in L shoulder following biceps tenodesis. Pt reports overall improvements in care. Pt reports clinically important difference in pain ratings. Pt is in good mood and motivated for skilled PT.. Patient Goals: gain full strength and have independence in functional ADLs Functional Limitations: heavy exertion, lifting, physical activities, recreational activities, working, cleaning, cooking, dressing, driving, grooming, reaching overhead, reaching behind back Pain: Pain Pain Level: 1 Pain Location: Shoulder - Left Description: Aching, Sore Frequency: Intermittent PROMIS Scales 09/11/2023 09/04/2023 07/08/2023 Higher is Better Phys Func - Score 33 (moderate dysfunction) 35 (moderate dysfunction) Phys Func - Percentile 4 7 Self-Eff Symptom - Score 41 (Average) 50 (Average) Self-Eff Symptom - Percentile 18 50 T-scores: mean of general population = 50. 5 points is clinically meaningfully difference Percentiles provide an indication of how the patient's score ranks in relation to the general population. Higher percentile rankings indicate better function/quality of life. 50th percentile is the average of the general population and indicates half of respondents had a worse score. OBJECTIVE MEASURES WITH LEVEL OF FUNCTION: UE AROM L Shoulder Flex: 140 Degrees L Shoulder ABduction: 132 Degrees L Shoulder External Rotation: 65 Degrees UE and Cervical Strength Strength Tested: Shoulder Dynamometer Testing Dynamometer Strength R Shoulder Standing Scaption (lbs): 9.5 ft/lbs R Shoulder Standing Abduction (lbs): 8.4 ft/lbs R Shoulder Standing External Rotation (lbs): 10.8 ft/lbs L Shoulder Standing Scaption (lbs): 6.7 ft/lbs L Shoulder Standing Abduction (lbs): 5.5 ft/lbs L Shoulder Standing External Rotation (lbs): 7.3 ft/lbs TREATMENT: Therapeutic Exercise: 1: Shoulder julio x3 min 2: wall wash ccw/cw x10; in scaption x10 ccw/cw 3: shoulder FF w/ towel and lift off x5 4: Wand ER 2x10 5: Scapular protraction/retraction supine 2x10 6: PTB supraspinatus pulses x10 Skilled Intervention: Patient was educated in proper exercise technique and purpose for exercises. Skilled judgment was used in selection of appropriate interventions. Educated patient on rationale for performing exercises in regards to increase ease of ADL and ROM and function . Manual Therapy: 1: STM to supraspinatus w/ push to tolerance Skilled Intervention: Manual skills to improve joint mobility, ROM, and decrease pain. Utilized anatomy knowledge of the therapist, and assessment of patient's response to intervention. Billing Therapeutic Exercise Treatment Minutes: 30 Manual TherapyTreatment Minutes: 8 Skilled Treatment Time Minutes (timed and untimed codes): 38 Total Session Time (minutes): 38 Session Start Time : 1550 Session Stop Time : 1628 EDSON Torre Supervising therapist was present and guided the care of the patient for the entire session on this date. All documentation was reviewed and agreed upon. Alex Mendenhall PT documented in this encounter [facility] 09-11-2023 History of Present illness Narrative Episode Visit Count: 9 Therapist That Will Accept/Oversee The Plan Of Care: Alex Mendenhall Start of Care Date: 07/09/23 Onset Date: 07/02/23 Plan of Care Certification Date: 02/20/23 Next Certification Due Date: 03/26/23 REHABILITATION AND SPORTS THERAPY PHYSICAL THERAPY TREATMENT NOTE ASSESSMENT: Montserrat Aguayo tolerated the session with decreased symptoms. She demonstrated improvements in ROM, biomechanics of LUE shoulder girdle and symprom modulation. The patient will continue to benefit from ongoing skilled physical therapy to improve ROM and gain functional ind in overhead ADLS. PLAN FOR NEXT VISIT: Cont plan of care as noted; w/ progress/regress dependent on Pt tolerance. SUBJECTIVE: Pt presents to clinic w/ LUE pain in shoulder; Pt is hesitant for ADLs. Pt. is in good mood to cont skilled PT and gain ind in ADLs. Pain: Pain Pain Level: 3 Pain Location: Shoulder - Left Description: Sore, Aching Frequency: Intermittent OBJECTIVE MEASURES WITH LEVEL OF FUNCTION: UE AROM L Shoulder External Rotation: 60 Degrees (70 after 10 reps of AAROM w/ 3 second holds) TREATMENT: Therapeutic Exercise: 1: Shoulder julio x 3min 2: shoulder flexion w/ towel on wall/door; x10 3: scapular protraction/retraction supine x10 4: Wand ER 2x10 5: door wash ccw/cw x10 Skilled Intervention: Patient was educated in proper exercise technique and purpose for exercises. Skilled judgment was used in selection of appropriate interventions. Educated patient on rationale for performing exercises in regards to ROM and function . Manual Therapy: 1: STM to L biceps; lateral deltoid push to tolerance into ischemic hold. STM and CFM to pec minor. Skilled Intervention: Manual skills to improve joint mobility, ROM, and decrease pain. Utilized anatomy knowledge of the therapist, and assessment of patient's response to intervention. Billing Therapeutic Exercise Treatment Minutes: 29 Manual TherapyTreatment Minutes: 10 Skilled Treatment Time Minutes (timed and untimed codes): 39 Total Session Time (minutes): 39 Session Start Time : 1549 Session Stop Time : 1628 EDSON Torre Supervising therapist was present and guided the care of the patient for the entire session on this date. All documentation was reviewed and agreed upon. Alex Mendenhall PT Program_ID:[id number] Access Code: [email or web address] URL: [email or web address] Date: 09-11-2023 Prepared By: Sherry Bruce Program Notes Exercises - Standing Circular Shoulder Pendulum Supported with Arm Bent - 1 x daily - 7 x weekly - 3 sets - 10 reps - Seated Shoulder Flexion Table Top Stretch - 1 x daily - 7 x weekly - 3 sets - 10 reps - Supine Shoulder External Rotation with Dowel - 1 x daily - 7 x weekly - 3 sets - 10 reps - Isometric Shoulder Flexion at Wall - 1 x daily - 7 x weekly - 3 sets - 10 reps - Standing Isometric Shoulder Internal Rotation at Doorway - 1 x daily - 7 x weekly - 3 sets - 10 reps - Isometric Shoulder Abduction at Wall - 1 x daily - 7 x weekly - 3 sets - 10 reps - Standing Isometric Shoulder External Rotation with Doorway - 1 x daily - 7 x weekly - 3 sets - 10 reps - Standing Wall Ball Circles with Mini French Ball - 1 x daily - 7 x weekly - 3 sets - 10 reps - Single Arm Serratus Punches in Supine with Dumbbell - 1 x daily - 7 x weekly - 3 sets - 10 reps documented in this encounter [facility] 09-04-2023 History of Present illness Narrative Episode Visit Count: 8 Therapist That Will Accept/Oversee The Plan Of Care: Alex Mendenhall Start of Care Date: 07/09/23 Onset Date: 07/02/23 Plan of Care Certification Date: 02/20/23 Next Certification Due Date: 03/26/23 REHABILITATION AND SPORTS THERAPY PHYSICAL THERAPY TREATMENT NOTE ASSESSMENT: Montserrat Aguayo tolerated the session with decreased symptoms and expected muscle soreness. She demonstrated improvements in ROM and quality of scapulohumeral rhythm. The patient will continue to benefit from ongoing skilled physical therapy to progress toward set goals. PLAN FOR NEXT VISIT: Possibly progress Pt. Exercises, as per tolerance. SUBJECTIVE: Pt. presents to clinic w/ L shoulder pain, appears to have reduced frustration with progress of shoulder. Pain: Pain Pain Level: 3 Pain Location: Shoulder - Left Description: Sore, Aching Frequency: Intermittent OBJECTIVE MEASURES WITH LEVEL OF FUNCTION: Poor rotator cuff timing with perturbations today, specifically in elevation and external rotation TREATMENT: Therapeutic Exercise: 1: Shoudler pulleys 2x20 2: shoulder flexion w/ towel on wall/door; x10 3: Supine perturbations x1 min Skilled Intervention: Patient was educated in proper exercise technique and purpose for exercises. Reviewed and educated patient on additions/changes for home exercise program as above (*). Skilled judgment was used in selection of appropriate interventions. Manual Therapy: 1: STM to L biceps; anterior deltoid push to tolerance into ischemic hold. Skilled Intervention: Manual skills to improve joint mobility, ROM, and decrease pain. Utilized anatomy knowledge of the therapist, and assessment of patient's response to intervention. Billing Therapeutic Exercise Treatment Minutes: 17 Manual TherapyTreatment Minutes: 8 Skilled Treatment Time Minutes (timed and untimed codes): 25 Total Session Time (minutes): 25 Session Start Time : 1553 Session Stop Time : 1618 Alex Mendenhall PT documented in this encounter [facility] 09-03-2023 Miscellaneous Notes Patient has been identified by name and date of : Yes, Provider Dr [email or web address] Date 09/03/23 Time 11:18 am Patient phones for refill(s): Requested Prescriptions Pending Prescriptions Disp Refills amitriptyline (ELAVIL) 25 mg tablet 180 tablet 1 Sig: Take 2 tablets by mouth daily at bedtime. Date of last office visit in primary care: 06/15/2023 Date of next office visit in primary care: 10/17/2023 Please advise. Thank you. Sabas Peacock LPN. Patient has been identified by name and date of : Patient phones for refill(s): Requested Prescriptions Pending Prescriptions Disp Refills amitriptyline (ELAVIL) 25 mg tablet 180 tablet 1 Sig: Take 2 tablets by mouth daily at bedtime. Date of last office visit in primary care: 06/15/2023 Date of next office visit in primary care: 10/17/2023 Please advise. Thank you. Patricia Condon. documented in this encounter [facility] 08-23-2023 History of Present illness Narrative Episode Visit Count: 7 Therapist That Will Accept/Oversee The Plan Of Care: Alex Mendenhall Start of Care Date: 07/09/23 Onset Date: 07/02/23 Plan of Care Certification Date: 02/20/23 Next Certification Due Date: 03/26/23 REHABILITATION AND SPORTS THERAPY PHYSICAL THERAPY TREATMENT NOTE ASSESSMENT: Montserrat Aguayo tolerated the session with decreased symptoms. She demonstrated improvements in shoulder motion and decreased pain with improved scapulohumeral rhythm. The patient will continue to benefit from ongoing skilled physical therapy to progress toward set goals. PLAN FOR NEXT VISIT: Continue manual work for decreased pain and improve quality of motion. Progress to AROM if symptoms allow SUBJECTIVE: Patient getting frustrated that she still has pain with certain motions, afraid she isn't progressing well enough Pain: Pain Pain Level: 3 Pain Location: Shoulder - Left Description: Sore, Aching Frequency: Intermittent OBJECTIVE MEASURES WITH LEVEL OF FUNCTION: UE PROM L Shoulder External Rotation: 52 Degrees TREATMENT: Therapeutic Exercise: 1: Shoulder pulleys 2x20 2: Wand ER 2x15 3: *Wall slides 3x3 4: Side lying shoulder elevation with hand on wedge, manual assist for scapular updward rotation 2x10 Skilled Intervention: Patient was educated in proper exercise technique and purpose for exercises. Skilled judgment was used in selection of appropriate interventions. Provided written instruction for home exercise program to facilitate proper performance and compliance. Correct performance of therapeutic exercises was facilitated with verbal, visual, and tactile cuing. Manual Therapy: 1: STM to L biceps, infraspinatus with push to tolerance 2: Shoulder PROM ER and flexion 2x30 reps each in tolerated range Skilled Intervention: Manual skills to improve joint mobility, ROM, and decrease pain. Utilized anatomy knowledge of the therapist, and assessment of patient's response to intervention. Billing Therapeutic Exercise Treatment Minutes: 25 Manual TherapyTreatment Minutes: 14 Skilled Treatment Time Minutes (timed and untimed codes): 39 Total Session Time (minutes): 39 Session Start Time : 1800 Session Stop Time : 183 Alex Mendenhall PT documented in this encounter [facility] 08-16-2023 History of Present illness Narrative Scan on 08/15/2023 2:12 PM by Provider, RHIANNA Thompson: Consultation - Ophthalmology documented in this encounter [facility] 08-14-2023 History of Present illness Narrative Episode Visit Count: 6 Therapist That Will Accept/Oversee The Plan Of Care: Alex Mendenhall Start of Care Date: 07/09/23 Onset Date: 07/02/23 Plan of Care Certification Date: 02/20/23 Next Certification Due Date: 03/26/23 REHABILITATION AND SPORTS THERAPY PHYSICAL THERAPY PROGRESS REPORT PLAN OF CARE UPDATE: Assessment: Montserrat Aguayo demonstrates minimal improvement in working and sleeping. She has progressed toward goals. Patient continues to present with impairments in ADL's, overall function, range of motion, strength, symptom management, and tissue tenderness that interfere with heavy exertion, lifting, physical activities, recreational activities, working, sleeping, reaching behind back, reaching overhead, use hand with arm at shoulder level, cleaning, cooking, dressing, grooming . Current prognosis is Good due to: current objective clinical presentation, good overall health status, acuteness of condition, good support system/ coping skills . She will benefit from continued skilled therapy services to meet the updated goals for this plan of care as noted below. Goals updated on 08/14/2023. Goals for Episode of Care: created on 07/09/23 through 10/08/23 Stuart in home exercise program. Met Patient will decrease pain rating by 2 points to meet minimal clinical important difference for numeric pain rating scale. Partially met Patient will increase active ROM of L elbow and shoulder to WNL to allow pt to to improve performance of ADLs. Progressing towards Patient will demonstrate increase in L shoulder strength to 4+/5 during manual muscle testing in order to improve function for basic self-care tasks, home management tasks, leisure / recreation skills, and prior functional tasks. Not met Perform reaching, lifting, work tasks with decreased report of symptoms/pain in 8-12 weeks. Not met Perform self care and sleeping without pain. Progressing towards Planned Interventions, Frequency, and Duration: 1x/week, 8 weeks Total Number of Visits Planned: 8 Patient to be seen for Therapeutic exercise (65724), Neuromuscular re-education (69899), Manual therapy (57691), Therapeutic activities (96031), Self-retirement management (98306), Patient/Family/Caregiver Education, Body Mechanics Training PLAN FOR NEXT VISIT: May revisit AAROM exercises SUBJECTIVE: Patient a little sore. She tried sliding her arm up the shower wall and this caused some sharp pain, so she stopped. Overall pain is improving, but still bothered by pain and difficulty using the arm activiely. Functional Limitations: heavy exertion, lifting, physical activities, recreational activities, working, sleeping, reaching behind back, reaching overhead, use hand with arm at shoulder level, cleaning, cooking, dressing, grooming Pain: Pain Pain Level: 3 Pain Location: Shoulder - Left Description: Sore, Aching Frequency: Intermittent PROMIS Scales Higher is Better 07/08/2023 03/13/2023 11/10/2021 Phys Func - Score 35 (moderate dysfunction) 41 (mild dysfunction) 48 (within normal limits) Phys Func - Percentile 7% 18% 42% Self-Eff Symptom - Score 50 (Average) 38 (Low) 56 (Average) Self-Eff Symptom - Percentile 50% 12% 73% T-scores: mean of general population = 50. 5 points is clinically meaningfully difference Percentiles provide an indication of how the patient's score ranks in relation to the general population. Higher percentile rankings indicate better function/quality of life. 50th percentile is the average of the general population and indicates half of respondents had a worse score. OBJECTIVE MEASURES WITH LEVEL OF FUNCTION: UE PROM L Shoulder Flex: 135 Degrees L Shoulder External Rotation: 50 Degrees TREATMENT: Therapeutic Exercise: 1: Attempted shoulder pulleys- pain, ceased after 5 reps (patient still compensating with shoulder shrug causing pain) 2: *Shoulder isometrics into flexion, abduction, ER, IR 3x10, 5 sec holds 3: Wall slides at doorway x3 reps (painful, ceased) Skilled Intervention: Patient was educated in proper exercise technique and purpose for exercises. Skilled judgment was used in selection of appropriate interventions. Provided written instruction for home exercise program to facilitate proper performance and compliance. Correct performance of therapeutic exercises was facilitated with verbal, visual, and tactile cuing. Manual Therapy: 1: STM to L biceps, infraspinatus with push to tolerance 2: Shoulder PROM ER and flexion 2x30 reps each in tolerated range Skilled Intervention: Manual skills to improve joint mobility, ROM, and decrease pain. Utilized anatomy knowledge of the therapist, and assessment of patient's response to intervention. Billing Therapeutic Exercise Treatment Minutes: 18 Manual TherapyTreatment Minutes: 25 Skilled Treatment Time Minutes (timed and untimed codes): 43 Total Session Time (minutes): 43 Session Start Time : 1316 Session Stop Time : 1359 Alex Mendenhall PT Program_ID:[id number] Access Code: [email or web address] URL: [email or web address] Date: 08-14-2023 Prepared By: Sherry Bruce Program Notes Exercises - Standing Circular Shoulder Pendulum Supported with Arm Bent - 1 x daily - 7 x weekly - 3 sets - 10 reps - Seated Shoulder Flexion Table Top Stretch - 1 x daily - 7 x weekly - 3 sets - 10 reps - Supine Shoulder External Rotation with Dowel - 1 x daily - 7 x weekly - 3 sets - 10 reps - Isometric Shoulder Flexion at Wall - 1 x daily - 7 x weekly - 3 sets - 10 reps - Standing Isometric Shoulder Internal Rotation at Doorway - 1 x daily - 7 x weekly - 3 sets - 10 reps - Isometric Shoulder Abduction at Wall - 1 x daily - 7 x weekly - 3 sets - 10 reps - Standing Isometric Shoulder External Rotation with Doorway - 1 x daily - 7 x weekly - 3 sets - 10 reps documented in this encounter [facility] 08-10-2023 History of Present illness Narrative Megha Seymour PA-C Department of Orthopaedics August 10, 2023 SURGERY: Left shoulder arthroscopic biceps tenodesis SUBJECTIVE: Patient returns to clinic now 6 weeks status post the above procedure. Has been progressing with PT. Having some pain up around her shoulder joint. Exam: Well healed portal sites. Normal biceps contour. Active forward elevation to 90, passive to 130. ER 30. ASSESSMENT: Z98.890 S/P shoulder surgery (primary encounter diagnosis) M25.612 Stiffness of left shoulder joint SUMMARY/PLAN: Continue PT, continue with daily stretching and okay to begin strengthening. Wean off pain medication as able. Continue to ice as needed. Return to clinic in 6 weeks for repeat examination. Megha Seymour PA-C documented in this encounter [facility] 08-09-2023 History of Present illness Narrative Episode Visit Count: 5 Therapist That Will Accept/Oversee The Plan Of Care: Alex Mendenhall Start of Care Date: 07/09/23 Onset Date: 07/02/23 Plan of Care Certification Date: 02/20/23 Next Certification Due Date: 03/26/23 REHABILITATION AND SPORTS THERAPY PHYSICAL THERAPY TREATMENT NOTE ASSESSMENT: Montserrat Aguayo tolerated the session with decreased symptoms and no issues. She demonstrated improvements in shoulder PROM. The patient will continue to benefit from ongoing skilled physical therapy to progress toward set goals. PLAN FOR NEXT VISIT: Continue PROM and manual as needed, may try light isometrics into shoulder ER, flexion. Scap retractions SUBJECTIVE: Patient continues to feel less pain, but has difficulty with prolonged computer work Pain: Pain Pain Level: 3 Pain Location: Shoulder - Left Description: Sore, Aching Frequency: Continuous OBJECTIVE MEASURES WITH LEVEL OF FUNCTION: UE PROM L Shoulder Flex: 125 Degrees L Shoulder External Rotation: 46 Degrees TREATMENT: Therapeutic Exercise: 1: Table slides into flexion 2: PROM shoulder flexion table slides 3x10 3: Wand ER 3x10 Skilled Intervention: Patient was educated in proper exercise technique and purpose for exercises. Skilled judgment was used in selection of appropriate interventions. Provided written instruction for home exercise program to facilitate proper performance and compliance. Correct performance of therapeutic exercises was facilitated with verbal, visual, and tactile cuing. Manual Therapy: 1: Gentle STM to L biceps, deltoid, upper trap, infraspinatus with push to tolerance 2: Shoulder PROM curcumduction, flexion, ER x20 each Skilled Intervention: Manual skills to improve joint mobility, ROM, and decrease pain. Utilized anatomy knowledge of the therapist, and assessment of patient's response to intervention. Billing Therapeutic Exercise Treatment Minutes: 15 Manual TherapyTreatment Minutes: 24 Skilled Treatment Time Minutes (timed and untimed codes): 39 Total Session Time (minutes): 39 Session Start Time : 1556 Session Stop Time : 1635 Alex Mendenhall PT documented in this encounter [facility] 08-06-2023 History of Present illness Narrative Episode Visit Count: 4 Therapist That Will Accept/Oversee The Plan Of Care: Alex Mendenhall Start of Care Date: 07/09/23 Onset Date: 07/02/23 Plan of Care Certification Date: 02/20/23 Next Certification Due Date: 03/26/23 REHABILITATION AND SPORTS THERAPY PHYSICAL THERAPY TREATMENT NOTE ASSESSMENT: Montserrat Aguayo tolerated the session with decreased symptoms. She demonstrated improvements in shoulder PROM. The patient will continue to benefit from ongoing skilled physical therapy to progress toward set goals. PLAN FOR NEXT VISIT: May try wall slides if symptoms allow SUBJECTIVE: Patient doing ok tonight, some new pain into the forearm lately. Pain: Pain Pain Level: 2 Pain Location: Shoulder - Left Description: Sore, Aching Frequency: Continuous OBJECTIVE MEASURES WITH LEVEL OF FUNCTION: UE PROM L Shoulder Flex: 112 Degrees L Shoulder External Rotation: 32 Degrees TREATMENT: Therapeutic Exercise: 1: Table slides into flexion 2: PROM shoulder flexion table slides 3x10 3: *Wand ER 3x10 Skilled Intervention: Patient was educated in proper exercise technique and purpose for exercises. Skilled judgment was used in selection of appropriate interventions. Provided written instruction for home exercise program to facilitate proper performance and compliance. Correct performance of therapeutic exercises was facilitated with verbal, visual, and tactile cuing. Manual Therapy: 1: Gentle STM to L biceps, deltoid, upper trap, infraspinatus with push to tolerance 2: Shoulder PROM curcumduction, flexion, ER x20 each Skilled Intervention: Manual skills to improve joint mobility, ROM, and decrease pain. Utilized anatomy knowledge of the therapist, and assessment of patient's response to intervention. Billing Therapeutic Exercise Treatment Minutes: 16 Manual TherapyTreatment Minutes: 23 Skilled Treatment Time Minutes (timed and untimed codes): 39 Total Session Time (minutes): 39 Session Start Time : 1547 Session Stop Time : 1626 Alex Mendenhall PT Program_ID:[id number] Access Code: [email or web address] URL: [email or web address] Date: 07-31-2023 Prepared By: Sherry Bruce Program Notes Exercises - Supported Elbow Flexion Extension PROM - 1 x daily - 7 x weekly - 3 sets - 10 reps - Standing Circular Shoulder Pendulum Supported with Arm Bent - 1 x daily - 7 x weekly - 3 sets - 10 reps - Wrist AROM Flexion Extension - 1 x daily - 7 x weekly - 3 sets - 10 reps - Wrist Circumduction AROM - 1 x daily - 7 x weekly - 3 sets - 10 reps - Seated Shoulder Flexion Table Top Stretch - 1 x daily - 7 x weekly - 3 sets - 10 reps - Supine Shoulder External Rotation with Dowel - 1 x daily - 7 x weekly - 3 sets - 10 reps documented in this encounter [facility] 07-26-2023 History of Present illness Narrative Episode Visit Count: 3 Therapist That Will Accept/Oversee The Plan Of Care: Alex Mendenhall Start of Care Date: 07/09/23 Onset Date: 07/02/23 Plan of Care Certification Date: 02/20/23 Next Certification Due Date: 03/26/23 REHABILITATION AND SPORTS THERAPY PHYSICAL THERAPY TREATMENT NOTE ASSESSMENT: Montserrat Aguayo tolerated the session with decreased symptoms. She demonstrated improvements in shoulder motion and tolerance for PROM. The patient will continue to benefit from ongoing skilled physical therapy to progress toward set goals. PLAN FOR NEXT VISIT: Continue gentle PROM, may add in wand ER SUBJECTIVE: patient doing better today, pain easing some. Pain: Pain Pain Level: 3 Pain Location: Shoulder - Left Description: Sore, Aching Frequency: Continuous OBJECTIVE MEASURES WITH LEVEL OF FUNCTION: UE PROM L Shoulder Flex: 95 Degrees L Shoulder External Rotation: 25 Degrees TREATMENT: Therapeutic Exercise: 1: Attempted shoulder pulleys but ceased after 4 reps due to pain 2: *PROM shoulder flexion table slides 3x10 Skilled Intervention: Patient was educated in proper exercise technique and purpose for exercises. Skilled judgment was used in selection of appropriate interventions. Provided written instruction for home exercise program to facilitate proper performance and compliance. Correct performance of therapeutic exercises was facilitated with verbal, visual, and tactile cuing. Manual Therapy: 1: Gentle STM to L biceps, deltoid, upper trap, infraspinatus with push to tolerance 2: Shoulder PROM curcumduction, flexion, ER x20 each Skilled Intervention: Manual skills to improve joint mobility, ROM, and decrease pain. Utilized anatomy knowledge of the therapist, and assessment of patient's response to intervention. Billing Therapeutic Exercise Treatment Minutes: 10 Manual TherapyTreatment Minutes: 30 Skilled Treatment Time Minutes (timed and untimed codes): 40 Total Session Time (minutes): 40 Session Start Time : 1714 Session Stop Time : 175 Alex Mendenhall PT Program_ID:[id number] Access Code: [email or web address] URL: [email or web address] Date: 07-24-2023 Prepared By: Sherry Bruce Program Notes Exercises - Supported Elbow Flexion Extension PROM - 1 x daily - 7 x weekly - 3 sets - 10 reps - Standing Circular Shoulder Pendulum Supported with Arm Bent - 1 x daily - 7 x weekly - 3 sets - 10 reps - Wrist AROM Flexion Extension - 1 x daily - 7 x weekly - 3 sets - 10 reps - Wrist Circumduction AROM - 1 x daily - 7 x weekly - 3 sets - 10 reps - Seated Shoulder Flexion Table Top Stretch - 1 x daily - 7 x weekly - 3 sets - 10 reps documented in this encounter [facility] 06-13-2023 History and physical note HISTORY AND PHYSICAL EXAMINATION SERVICE DATE: 06/13/2023 SERVICE TIME: 10:32 AM PRIMARY CARE PHYSICIAN: Liam Wilkins MD Assessment Patient has the following medical conditions which may affect juan-operative course: Acquired hypothyroidism Assessment: stable on rx Bilateral carotid artery stenosis Assessment: under surveillance, US 06/2021 20-40% bilateral 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 Elevated hemoglobin A1c Assessment: controlled on oral agent Hemoglobin A1C (%) Date Value 03/26/2023 5.9 07/04/2021 5.9 History of skin cancer Assessment: SCC s/p excision Irritable bowel syndrome with both constipation and diarrhea Assessment: taking Zoloft for this per documentation Mild persistent asthma Assessment: controlled on rx and as needed Mitral valve disorders(424.0) Assessment: trivial MR 2008, asymptomatic 2008 Echo CONCLUSIONS: - Exam indication: Chemotherapy baseline/progress - The left ventricle is normal in size. There is mild concentric left ventricular hypertrophy. Left ventricular systolic function is normal. EF = 60 5% (visual est.) Stage I diastolic dysfunction. - The right ventricle is normal in size. Right ventricular systolic function is normal. - Trivial MR. No evidence of mitral valve prolapse. - Trivial TR. RVSP 31mmHg. - No valvular stenosis. - Trivial PI. - There is no previous echo for comparison. Mixed hyperlipidemia Assessment: c/w statin RSD (reflex sympathetic dystrophy) Assessment: controlled on rx, RLE [place] Activity Status Index: METS: Climb a flight of stairs or walk up a hill (5.50 METs) DASI Score: 5.5 Patient denies any chest pain or undue shortness of breath with the above physical activity. Clinical Frailty Scale: 3. Well, with treated comorbid disease STOP-Bang Score: Patient over 50 years old Denies snoring loudly Denies feeling tired, fatigued, or sleepy during the daytime Has not been observed to stop breathing or choking/gasping during sleep Denies having high blood pressure BMI less than or equal to 35 kg/m^2 Does not have a large neck Non-male patient STOP-Bang Score: 1 [id number] Score: Age: 65-74 Sex: female CHF history: No Hypertension history: No Stroke/TIA/thromboembolism history: No Vascular disease history: No Diabetes history: No [id number] Score: 2 ARISCAT Score: Age: 51-80 Preoperative SpO2: >=96% Respiratory infection in the last month: No Preoperative anemia: No Surgical incision: peripheral Duration of surgery: <2 hrs Emergency procedure: No ARISCAT Score: 3 ANESTHESIA FINDINGS: Intubation History: No history of difficult intubation Significant Anesthesia Considerations: none Airway History: No history of difficult airway I - PHYSICAL EVALUATION AIRWAY Patient intubated: No. Tracheostomy tube not present Mallampati: I. TM distance: >3 FB. Neck ROM: full ROM without neurological symptoms. Mouth opening: adequate. Short neck: no. Thick neck: no Kline present: no Lip Bite Test: I Microretrognathia/Micronagthia/Rec essed Chin: No DENTAL Dental findings: teeth intact. Additional comments: +crowns/back. II - ANESTHESIA PLAN Anesthetic Plan: other Beta Del Monitoring Plan Post Procedure Analgesic Plan Informed Consent Anesthetic risks, benefits, alternatives, personnel and consent discussed: yes. Patient / Responsible Constitution Party agrees to proceed: yes Patient / Surrogate agrees to blood products: blood products not planned Discussed the possibility of lip / dental damage: yes REASON FOR VISIT: Montserrat Aguayo is a 73 year old female who is scheduled for Procedure(s): ARTHROSCOPY SHOULDER BICEPS TENODESIS (Left) at the request of Dr. Regina Mcpherson for consultation. My final recommendation will be communicated back to the requesting physician by way of shared medical record or letter. Subjective The patient has the following: ACTIVE PROBLEM LIST Acquired Hypothyroidism Mixed Hyperlipidemia Spinal stenosis, unspecified region other than cervical Rsd (Reflex Sympathetic Dystrophy) Mitral valve disorders(424.0) Neck Pain Neutropenia, drug-induced (HCC) Mild Persistent Asthma Plantar Fasciitis Sebaceous Cyst Ganglion and Cyst of Synovium, Tendon and Bursa Trigger Ring Finger of Right Hand Fatty Liver Metabolic Syndrome Gastroesophageal Reflux Disease Without Esophagitis Diverticulosis of Large Intestine Internal Hemorrhoids Without Mention of Complication History of Detached Retina Repair Cataracts, Bilateral Well Adult Exam Elevated Hemoglobin A1c Carcinoma of Female Breast, Right (Hcc) Right-Sided Chest Wall Pain Class 1 Obesity Due to Excess Calories Without Serious Comorbidity With Body Mass Index (Bmi) of 30.0 to 30.9 in Adult Mass of Left Lower Leg Ex-Smoker History of Skin Cancer History of Colonic Polyps Vitamin D Deficiency Irritable Bowel Syndrome With Both Constipation and Diarrhea Bilateral Carotid Artery Stenosis Living Will in Place Advance Directive Discussed With Patient Medication Management Neural Foraminal Stenosis of Cervical Spine Acute Pain of Left Shoulder Tear of Left Glenoid Labrum Incomplete Tear of Left Rotator Cuff Labral Tear of Long Head of Left Biceps Tendon COVID-19 Immunization Status Overdue - Covid-19 Vaccine (2022-) Overdue since 04/21/2023 02/24/2023 Imm Admin: COVID-19 vaccine, age 12+ yr, bivalent (PFIZER-BIONTECH) 03/31/2022 Imm Admin: COVID-19 vaccine, age 12+ yr, bivalent (PFIZER-BIONTECH) 11/05/2021 Imm Admin: COVID-19 original vaccine, age 12+ yr, monovalent (PFIZER-BIONTECH - ESPINO TOP) Only the first 3 history entries have been loaded, but more history exists. CHIEF COMPLAINT: Pre-op exam HPI: Montserrat Aguayo is a 73 year old seen for PAC due to scheduled above surgery because of left glenoid labrum tear. 05/11/2023, Dr. Mcpherson Montserrat Aguayo is a 73 year old woman referred for evaluation of pain in the left shoulder. This has been an ongoing problem for several months and not responsive to treatment including physical therapy and corticosteroid injection. Relevant history of the current condition includes atraumatic onset with gradual worsening. Examination of the left shoulder demonstrates difficulty with lifting and rotating the arm due to pain. There is painful weakness in elevation and rotation. Positive provocative testing includes [place], [place], [place], [place]. IMAGING: I personally reviewed the MRI of the left shoulder in the office today, and I am in agreement with the radiologist's interpretation with the following modifications: None IMPRESSION: ARTICULAR SURFACE PARTIAL-THICKNESS TEARS OF THE SUPRASPINATUS AND INFRASPINATUS TENDONS. SUBSCAPULARIS TENDINOSIS. MILD SUPRASPINATUS AND INFRASPINATUS MUSCLE ATROPHY. HYPERTROPHIC AC JOINT ARTHROSIS WITH SUPRASPINATUS EFFACEMENT. LONGITUDINAL SPLIT TEAR OF THE EXTRACAPSULAR LONG HEAD BICEPS TENDON. TEAR OF THE SUPERIOR LABRUM. MILD GLENOHUMERAL JOINT ARTHROSIS WITH SMALL EFFUSION. REVIEW OF SYSTEMS: General: No weight loss, malaise or fevers. Neurological: No history of TIA's, stroke, MOTION STUDY ANALYST tumor, impaired sensorium, hemiplegia, paraplegia or quadraplegia. No neurological symptoms or problems. Respiratory: Positive for: asthma (rx as needed). Negative for: COPD, pneumonia within 6 weeks, tobacco use, URI < 2 weeks and obstructive sleep apnea. Cardiovascular: +carotid artery stenosis, under surveillance Positive for: hyperlipidemia (on rx) and murmur/valvular heart disease Negative for: anticoagulation therapy, arrhythmia, atrial fibrillation, CAD, chest pain, CHF, congenital heart defect, DVT/PE, hypertension, recent MT, PVD, open heart surgery and valve surgery. GI: Positive for: GERD (hx, denies any current issues or tx), irritable bowel syndrome (on rx) and liver disease (hx fatty liver) Negative for: abdominal pain, dysphagia, hepatitis, inflammatory bowel disease, nausea, pancreatitis, vomiting and ETOH >2 drinks/day. : No history of dysuria, frequency or incontinence, stones or chronic kidney disease. No difficulty urinating, nocturia > 1 time per night or hematuria. CONVEYOR SYSTEM DISPATCHER: Negative for abnormal vaginal bleeding, abnormal vaginal discharge. Endocrine: Positive for: hypothyroidism (on rx). Negative for: diabetes mellitus. Hematology: Negative for: anemia, bruises/bleeds easily, transfusion of at least 4 units within 72 hours prior to surgery and chronic anti-coagulation/platelet meds. Oncology: +SCC s/p excision +breast cancer b/l mastectomy followed by chemo and XRT Musculoskeletal: See HPI. +chronic neck pain, s/p injection +RDS, on rx Skin: Negative for lesions, rash and itching. PAST MEDICAL HISTORY Diagnosis Date Acquired hypothyroidism 11/29/2005 Bilateral carotid artery stenosis 07/13/2021 US: 06/2021: Stephen 20-40% 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, right (HCC) 10/05/2017 Cataracts, bilateral 12/20/2016 Some relation to steroids with her asthma. 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 Incomplete tear of left rotator cuff 04/16/2023 Internal hemorrhoids without mention of complication Irritable bowel syndrome with both constipation and diarrhea 07/28/2020 Labral tear of long head of left biceps tendon 04/16/[address] 01/04/2022 DPA: Deshawn () Mass of left lower leg 07/03/2018 Benign w/u Metabolic syndrome 04/19/2016 Mild persistent asthma 09/07/2011 Mitral valve disorders(424.0) Mixed hyperlipidemia 11/29/2005 Neural foraminal stenosis of cervical spine 03/21/2022 Mod-sever on the left Neutropenia, drug-induced (HCC) 08/11/2011 Obesity Plantar fasciitis 11/24/2013 Primary insomnia 07/06/2021 Right-sided chest wall pain 10/05/2017 Secondary to breast cancer radiation. RSD (reflex sympathetic dystrophy) Sebaceous cyst 01/20/2014 Spinal stenosis, unspecified region other than cervical 03/02/2006 Tear of left glenoid labrum 04/16/2023 Trigger ring finger of right hand 06/23/2014 Vitamin D deficiency 09/15/2019 PAST SURGICAL HISTORY Procedure Laterality Date ADENOIDECTOMY PRIMARY <AGE 12 Adenoidectomy BREAST BIOPSY CORE 04/11/2011 right breast 2:00, 4:00 and 10:00 BREAST BIOPSY INCISIONAL 14 years ago right and left breast- benign BREAST RECONSTRUC W FREE FLAP 12/13/2012 bilateral breast BREAST RECONSTRUC W TISS EXPANDR 05/25/2011 right breast with elevation of the serratus flap CARDIAC CATH 03/20/2017 normal, by Dr. Colvin COLONOSCOPY FLX DX W/COLLJ SPEC WHEN PFRMD 04/08/2007 COLONOSCOPY FLX DX W/COLLJ SPEC WHEN PFRMD N/A 09/06/2016 MAC COLONOSCOPY FLX DX W/COLLJ SPEC WHEN PFRMD 02/10/2019 Colonoscopy INSJ TUNNELED CTR VAD W/SUBQ PORT AGE 5 YR/> 07/06/2011 left IJ MASTECTOMY, SIMPLE, COMPLETE 05/25/2011 right breast skin-sparing with SLND/level 1 LND MASTECTOMY, SIMPLE, COMPLETE 12/13/2012 prophylactic left breast PAST SURGICAL HISTORY OF squamous cell skin ca nose, lips, face PAST SURGICAL HISTORY OF 1972 removal of sweat glands (bilateral axilla (right x 2)and groin) PAST SURGICAL HISTORY OF 03/06/2016 removal of polyp at [facility] COVID-19 VACCINE, AGE 12+ YR (PURPLE TOP) 09/11/2020 first vaccine REM LESION TRUNK,ARM, LEG <0.5 CM 01/24/2014 Exc. 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 01/18/2012 Removal left IJ port RPR COMPLEX RETINA DETACH VITRECT &MEMBRANE PEEL 09/2014 left retina SIGMOIDOSCOPY FLX DX W/COLLJ SPEC BR/WA IF PFRMD 01/27/2002 Sigmoidoscopy TONSILLECTOMY PRIMARY/SECONDARY <AGE 12 Tonsillectomy FAMILY HISTORY Problem Relation Age of Onset Breast Cancer Mother dx in her 50's other (uterine cancer) Mother dx before breast cancer Heart Father [place] Headache Sister other (other cances) Sister no known family h/o: ovarian; prostate, colon, pancreatic, lung, thyroid, brain, melenoma, leukemia, sarcomas other (rectal cancer) Paternal Grandmother 95 Breast Cancer Maternal Aunt 1) details unknown Breast Cancer Maternal Aunt 2) details unknown Social History Tobacco Use Smoking status: Former Packs/day: 2.00 Years: 12.00 Additional pack years: 0.00 Total pack years: 24.00 Types: Cigarettes Quit date: 06/25/1981 Years since quittin.9 Smokeless tobacco: Never Vaping Use Vaping Use: Never used Substance Use Topics Alcohol use: Yes Comment: wine with meals Drug use: No Prior to Admission medications as of 06/13/23 0926 Medication Sig Last Dose Taking naproxen (NAPROSYN) 500 mg tablet Take 1 tablet by mouth two times a day as needed (for pain/inflammation). Take with food. Taking Yes levothyroxine (SYNTHROID) 100 mcg tablet Take 1 tablet by mouth daily before breakfast. Taking Yes ergocalciferol 50,000 unit capsule (VITAMIN D2, DRISDOL) Every other week Taking Yes pioglitazone (ACTOS) 30 mg tablet Take 1 tablet by mouth once daily. Taking Yes fluticasone-salmeterol (ADVAIR, WIXELA) 250-50 mcg/dose inhaler Inhale 1 Puff as instructed two times a day. Taking Yes atorvastatin (LIPITOR) 40 mg tablet take 1 tablet by mouth once daily Taking Yes amitriptyline (ELAVIL) 25 mg tablet take 2 tablets by mouth at bedtime Taking Yes VENTOLIN HFA 90 mcg/actuation inhaler Inhale 2 Puffs as instructed every 4 hours as needed for wheezing/shortness of breath. Taking Yes sertraline (ZOLOFT) 100 mg tablet Take one tablet by mouth once a day. Taking Yes acetaminophen (TYLENOL) 500 mg tablet Take 1,000 mg by mouth at bedtime as needed. Taking Yes albuterol (PROVENTIL) 2.5 mg /3 mL (0.083 %) nebulizer solution inhale 3 milliliters in nebulizer every 4 hours if needed for wheezing /SHORTNESS OF BREATH. USE OVER 5 -15 MINUTES Taking Yes COMPOUNDED PRESCRIPTION NEBULIZER and supplies FOR HOME USE. DX: J45.30, J45.90. Length of need is life. This is a medically necessary devise for management of patients lung disease. Current machine recently stopped working. While trying to use it started to smoke and stopped. Taking Yes No medication comments found. ALLERGIES Allergen Reactions Typhoid Vaccine Intolerance Adhesive Tape (Haley* Other: See Comments after 2 days area becomes red and itches Cats Intolerance Diclofenac Other: See Comments elevated liver enz Dogs Intolerance Dust Intolerance Environmental [Othe* Other: See Comments sneezing Meloxicam Other: See Comments Swollen eyelids Mold Intolerance Tegretol [Carbamaze* Intolerance blood problem Objective PHYSICAL EXAM: General: alert and oriented (x3), healthy appearance and obese. Pertinent negatives noted - not distressed. Skin: normal color, no rash or lesions. HEENT: EOM intact and pupils equal round. Pertinent negatives noted - no carotid bruit. Cardiovascular: regular rate and rhythm, normal S1 and S2, no rub, murmurs, or gallop. Respiratory: normal breath sounds, no wheezes or crackles. No chest wall deformity or tenderness. Abdomen: soft. Pertinent negatives noted - not tender. Extremities: no deformity, no edema or tenderness, no joint swelling or clubbing. Neurological: normal cognition and motor skills. Gait normal. No weakness or sensory deficit. PAIN ASSESSMENT: Pain Pain Level: 6 Pain Location: Shoulder-Left Description: Radiating, Aching Duration Amount of Time: 3 Duration Units: Months Frequency: Intermittent Intervention/Comfort measure: Medication, Heat, Cold VITALS: BP 122/88 Pulse 80 Temp (Src) 97.7 (Temporal) Resp 16 Ht 5' 8 (1.73m) Wt 203 lb (92.1kg) SpO2 96% LMP 01/06/2009 BMI 30.87 kg/(m^2). Diagnostic tests reviewed for today's visit: Lab Value Units Date High Low HB No results within date range. HCT No results within date range. WBC No results within date range. PLT No results within date range. NA No results within date range. K No results within date range. GLUC No results within date range. BUN No results within date range. CREAT No results within date range. PTSEC No results within date range. INR No results within date range. APTT No results within date range. ALT No results within date range. AST No results within date range. TBILI No results within date range. TSH 0.705 mIU/L 03/26/2023 4.200 0.270 Lab Value Units Date High Low HCGQT No results within date range. UHCG No results within date range. HCG, BODY* No results within date range. Lab Value Units Date High Low ABORHD No results within date range. ABSCREEN No results within date range. Hemoglobin A1C (%) Date Value 03/26/2023 5.9 08/29/2022 5.7 12/30/2021 5.9 07/04/2021 5.9 12/14/2020 5.8 06/04/2020 6.0 12/01/2019 6.0 12/31/2018 5.8 No results found for this or any previous visit (from the past 8760 hour(s)). No results found for this or any previous visit (from the past 83089 hour(s)). Prepared for Surgery: optimally prepared for surgery. CONSULTS: Patient does not require consults for optimization at this time Planned Anesthetic: other anesthesia choice The Following Tests/Procedures Have Been Initiated: No orders of the defined types were placed in this encounter. Instructions Given to Patient: Instructions located in the after visit summary. Patient given verbal and written preop instructions and voices comprehension and compliance. SIGNATURE: Lian Duran APRN.CNP PATIENT NAME: Montserrat Aguayo DATE: June 13, 2023 TIME: 9:28 AM PAGER/CONTACT #: documented in this encounter [facility] 06-13-2023 Instructions Lian Duran APRN.CNP - 06/13/2023 9:26 AM EST PATIENT PREOPERATIVE INSTRUCTIONS Regina Mcpherson,* has scheduled you for your procedure at this surgery center: [facility]: [phone] -- [address] [place] [id number]. Please read below carefully for your personalized instructions. Dietary Restrictions: - No solid food after midnight. - You may have 12 ounces of clear liquids (water, clear juices such as apple juice or gatorade, carbonated beverages, clear tea, black coffee, jello) until 2 hours before scheduled arrival at facility. No red/purple coloring and no creamer/sugar Medications: Unless instructed differently below, stay on all of your medications until your surgery. If you start any new medications after today's visit, please contact your surgeon. Pre-Surgery Med Instructions Medication Instructions naproxen (NAPROSYN) 500 mg tablet Stop 7 days before surgery levothyroxine (SYNTHROID) 100 mcg tablet Take the day of surgery with a small sip of water ergocalciferol 50,000 unit capsule (VITAMIN D2, DRISDOL) Stop 7 days before surgery pioglitazone (ACTOS) 30 mg tablet Do not take the day of surgery fluticasone-salmeterol (ADVAIR, WIXELA) 250-50 mcg/dose inhaler Take the day of surgery with a small sip of water atorvastatin (LIPITOR) 40 mg tablet Take the day of surgery with a small sip of water amitriptyline (ELAVIL) 25 mg tablet Take the day of surgery with a small sip of water VENTOLIN HFA 90 mcg/actuation inhaler Take the day of surgery with a small sip of water sertraline (ZOLOFT) 100 mg tablet Take the day of surgery with a small sip of water acetaminophen (TYLENOL) 500 mg tablet IF needed albuterol (PROVENTIL) 2.5 mg /3 mL (0.083 %) nebulizer solution Take the day of surgery with a small sip of water COMPOUNDED PRESCRIPTION If you start any new medications after today's visit, please contact the surgeon's office. Blood Thinning Medications: - Stop NSAIDS (Ibuprofen, Advil, Aleve, Motrin, Celebrex, Mobic, etc.) 7 days before surgery, as directed by your surgeon. - Stop Aspirin 7 days before surgery, as directed by your surgeon. - Stop Vitamin E, ALL multi-vitamins, herbals and dietary supplements 7 days before surgery. - You may take Tylenol (Acetaminophen) or any of your pain medications that do not contain aspirin or NSAIDS as needed. Important Reminders: - Candy, mints, and tobacco products are NOT permitted the morning of surgery. - Hearing aids, dentures and glasses may be worn the morning of surgery. - NO jewelry, body piercings, makeup, hairpins or contacts are to be worn the day of surgery. If you develop symptoms such as a fever, cold, or flu, or have other changes to your health within TWO DAYS of scheduled surgery or the morning of surgery, please contact the surgery center above. Personal Belongings: -Please have photo ID and insurance cards. -If you do not have a copy of advance directives on file with us, please bring a copy with you on the day of surgery. - Leave ALL valuables and money at home or with family members. For Outpatient Procedures: - YOU MUST HAVE A RESPONSIBLE EXECUTIVE LEGAL SECRETARY TAKE YOU HOME. A MAINTENANCE ASSOCIATE OR AUTOMATIC MOUNTER CANNOT BE MADE A RESPONSIBLE EXECUTIVE LEGAL SECRETARY. - We recommend that a responsible person stays with you overnight to take care of you. - You cannot stay in a hotel alone after outpatient surgery. You will not be permitted to have your surgery, if you do not have someone to take care of you. Arrival Time for Surgery: - The Surgery Center or hospital where you are having surgery will call the afternoon before surgery (or Sunday for Sunday surgery) with a scheduled arrival time. - If you have not heard by 4 pm, please contact the surgery center above. Please be aware that emergency situations arise, which may delay or change your surgical time. If this happens, we will notify you as soon as possible and regret any inconvenience. If you already have an Advance Directive, please fax a copy to [phone] or email to for it to be added to your chart. If you do not have an Advance Directive, you can find the appropriate form and more information at [email or web address]. We recommend that you complete the Advance Directive form found on the website and bring it with you the day of your surgery. It can be witnessed and scanned into your chart that day. Lian Duran APRN.CNP documented in this encounter [facility] 05-30-2023 Miscellaneous Notes Called patient and scheduled PT evaluation for 07/09/23, in [place], per patients request. Patient is scheduled for surgery on 07-02-2023. Please reach out and schedule physical therapy for approximately 1 week post-op. Thank you. Zita Arroyo documented in this encounter [facility] 05-18-2023 Miscellaneous Notes The following approved medication requests have been transmitted electronically. Requested Prescriptions Signed Prescriptions Disp Refills naproxen (NAPROSYN) 500 mg tablet 60 tablet 1 Sig: Take 1 tablet by mouth two times a day as needed (for pain/inflammation). Take with food. Liam Wilkins MD documented in this encounter [facility] 05-14-2023 Miscellaneous Notes Addended by: MEGHA SEYMOUR on: 05/14/2023 12:14 PM Modules accepted: Orders documented in this encounter [facility] 04-17-2023 Miscellaneous Notes Appointment with Brandie Thompson PA-C cancelled. Please assist patient with appointment to see Dr. Jose Mcpherson. Thank you. Patient was seen in Dr. Wilkins's office today. Patient indicated that she is scheduled for 04/23/2023 with Brandie for cortisone injection. Patient indicated that she cannot make that appointment. Update patient did have cortisone injection on 02/10/[address] Wilkins. Patient would like to proceed with Dr. Mcpherson. Please contact patient. Namrata Clifford MA Patient notified. She would like to see Brandie for an injection. Please contact patient to schedule, thank you! Carole Wilson MA Spoke with ortho nursing, patient can see [facility] for a cortisone injection if she would like, if that doesn't work, we would refer her to Dr. Mcpherson at [facility]. Will contact patient this morning to inform. Carole Wilson MA Consult order placed. Patient notified and verbalized understanding. Asking to see [facility] in [place] if possible, sooner than later d/t the pain. Consult pended, once filed will connect with ortho nursing to see what is available. Carole Wilson MA Let patient know the MRI shows several tendon/ligament tears in the left shoulder. Will need to see ortho. Options are with us or [facility]? documented in this encounter [facility] 04-17-2023 Instructions Liam Wilkins MD - 04/17/2023 12:17 PM EDT Please get labs and urine test done on or after 10/05/2023 prior to your next visit. documented in this encounter [facility] 04-17-2023 History of Present illness Narrative Chief Complaint No chief complaint on file. HPI Montserrat Aguayo is a 73 year old female who presents here today for 6 month follow up. Patient is here today with hx of Hypothyroidism, elevated A1c, GERD, hyperlipidemia, RSD, Vit D def, mild persistent asthma, Hx of breast cancer on the right side, obisity as well as those reviewed and addressed below Any concerns today? None Patient indicated that she got the tramodol but has not taken it. Patient is to [facility] for a cortisone injection on April 23. We see if this helps, if that doesn't work, they will refer her to Dr. Mcpherson at [facility]. Past medical history, appointments, medications, allergies reviewed. Previous Medical History PAST MEDICAL HISTORY Diagnosis Date Acquired hypothyroidism 11/29/2005 Bilateral carotid artery stenosis 07/13/2021 US: 06/2021: [place] 20-40% 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, right (HCC) 10/05/2017 Cataracts, bilateral 12/20/2016 Some relation to steroids with her asthma. 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 Incomplete tear of left rotator cuff 04/16/2023 Internal hemorrhoids without mention of complication Irritable bowel syndrome with both constipation and diarrhea 07/28/2020 Labral tear of long head of left biceps tendon 04/16/[address] 01/04/2022 DPA: Deshawn () Mass of left lower leg 07/03/2018 Benign w/u Metabolic syndrome 04/19/2016 Mild persistent asthma 09/07/2011 Mitral valve disorders(424.0) Mixed hyperlipidemia 11/29/2005 Neural foraminal stenosis of cervical spine 03/21/2022 Mod-sever on the left Neutropenia, drug-induced (HCC) 08/11/2011 Obesity Plantar fasciitis 11/24/2013 Primary insomnia 07/06/2021 Right-sided chest wall pain 10/05/2017 Secondary to breast cancer radiation. RSD (reflex sympathetic dystrophy) Sebaceous cyst 01/20/2014 Spinal stenosis, unspecified region other than cervical 03/02/2006 Tear of left glenoid labrum 04/16/2023 Trigger ring finger of right hand 06/23/2014 Vitamin D deficiency 09/15/2019 Previous Surgical History PAST SURGICAL HISTORY Procedure Laterality Date ADENOIDECTOMY PRIMARY <AGE 14 Adenoidectomy BREAST BIOPSY CORE 04/11/2011 right breast 2:00, 4:00 and 10:00 BREAST BIOPSY INCISIONAL 14 years ago right and left breast- benign BREAST RECONSTRUC W FREE FLAP 12/13/2012 bilateral breast BREAST RECONSTRUC W TISS EXPANDR 05/25/2011 right breast with elevation of the serratus flap CARDIAC CATH 03/20/2017 normal, by Dr. Colvin COLONOSCOPY FLX DX W/COLLJ SPEC WHEN PFRMD 04/08/2007 COLONOSCOPY FLX DX W/COLLJ SPEC WHEN PFRMD N/A 09/06/2016 MAC COLONOSCOPY FLX DX W/COLLJ SPEC WHEN PFRMD 02/10/2019 Colonoscopy INSJ TUNNELED CTR VAD W/SUBQ PORT AGE 5 YR/> 07/06/2011 left IJ MASTECTOMY, SIMPLE, COMPLETE 05/25/2011 right breast skin-sparing with SLND/level 1 LND MASTECTOMY, SIMPLE, COMPLETE 12/13/2012 prophylactic left breast PAST SURGICAL HISTORY OF squamous cell skin ca nose, lips, face PAST SURGICAL HISTORY OF 1972 removal of sweat glands (bilateral axilla (right x 2)and groin) PAST SURGICAL HISTORY OF 03/06/2016 removal of polyp at [facility] COVID-19 VACCINE, AGE 12+ YR (PURPLE TOP) 09/11/2020 first vaccine REM LESION TRUNK,ARM, LEG <0.5 CM 01/24/2014 Exc. 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 01/18/2012 Removal left IJ port RPR COMPLEX RETINA DETACH VITRECT &MEMBRANE PEEL 09/2014 left retina SIGMOIDOSCOPY FLX DX W/COLLJ SPEC BR/WA IF PFRMD 01/27/2002 Sigmoidoscopy TONSILLECTOMY PRIMARY/SECONDARY <AGE 14 Tonsillectomy Family History FAMILY HISTORY Problem Relation Age of Onset Breast Cancer Mother dx in her 50's other (uterine cancer) Mother dx before breast cancer Heart Father MT Headache Sister other (other cances) Sister no known family h/o: ovarian; prostate, colon, pancreatic, lung, thyroid, brain, melenoma, leukemia, sarcomas other (rectal cancer) Paternal Grandmother 95 Breast Cancer Maternal Aunt 1) details unknown Breast Cancer Maternal Aunt 2) details unknown Patient Allergies ALLERGIES Allergen Reactions Typhoid Vaccine Intolerance Adhesive Tape (Haley* Other: See Comments after 2 days area becomes red and itches Cats Intolerance Diclofenac Other: See Comments elevated liver enz Dogs Intolerance Dust Intolerance Environmental [Othe* Other: See Comments sneezing Meloxicam Other: See Comments Swollen eyelids Mold Intolerance Tegretol [Carbamaze* Intolerance blood problem Current Medications Current Outpatient Medications on File Prior to Visit Medication Sig traMADol (ULTRAM) 50 mg tablet Take 1 tablet by mouth two times a day as needed for pain. fluticasone-salmeterol (ADVAIR, WIXELA) 250-50 mcg/dose inhaler Inhale 1 Puff as instructed two times a day. naproxen (NAPROSYN) 500 mg tablet Take 1 tablet by mouth two times a day as needed (for pain/inflammation). Take with food. atorvastatin (LIPITOR) 40 mg tablet take 1 tablet by mouth once daily amitriptyline (ELAVIL) 25 mg tablet take 2 tablets by mouth at bedtime levothyroxine (SYNTHROID) 100 mcg tablet take 1 tablet by mouth EVERY MORNING BEFORE BREAKFAST VENTOLIN HFA 90 mcg/actuation inhaler Inhale 2 Puffs as instructed every 4 hours as needed for wheezing/shortness of breath. sertraline (ZOLOFT) 100 mg tablet Take one tablet by mouth once a day. (Patient taking differently: Take half tablet by mouth once a day.) pioglitazone (ACTOS) 15 mg tablet Take 1 tablet by mouth once daily. acetaminophen (TYLENOL) 500 mg tablet Take 1,000 mg by mouth at bedtime as needed. ergocalciferol 50,000 unit capsule (VITAMIN D2, DRISDOL) Take 1 capsule by mouth one time a week. (Patient taking differently: Take 50,000 Units by mouth. Every other week) albuterol (PROVENTIL) 2.5 mg /3 mL (0.083 %) nebulizer solution inhale 3 milliliters in nebulizer every 4 hours if needed for wheezing /SHORTNESS OF BREATH. USE OVER 5 -15 MINUTES COMPOUNDED PRESCRIPTION NEBULIZER and supplies FOR HOME USE. DX: J45.30, J45.90. Length of need is life. This is a medically necessary devise for management of patients lung disease. Current machine recently stopped working. While trying to use it started to smoke and stopped. No current facility-administered medications on file prior to visit. Social History Social History Tobacco Use Smoking status: Former Packs/day: 2.00 Years: 12.00 Additional pack years: 0.00 Total pack years: 24.00 Types: Cigarettes Quit date: 06/25/1981 Years since quittin.8 Smokeless tobacco: Never Vaping Use Vaping Use: Never used Substance Use Topics Alcohol use: Yes Comment: wine with meals Drug use: No Review of Symptoms REVIEW OF SYSTEMS GENERAL: No weight loss, malaise or fevers NECK: Negative for lumps, goiter, pain and significant neck swelling RESPIRATORY: Negative for cough, hemoptysis, wheezing, COPD, dyspnea or shortness of breath CARDIOVASCULAR: Negative for chest pain, leg swelling, hypertension, CHF or palpitations GI: No nausea, vomiting, or diarrhea and No heartburn or reflux symptoms PSYCH: Negative for sleep disturbance, mood disorder and recent psychosocial stressors ENDOCRINE: Negative for cold or heat intolerance, polyuria, polydipsia and goiter NEURO: No history of headaches, syncope, paralysis, seizures or tremors EXAM: BP 122/60 (BP Site: Left Arm, BP Position: Sitting, BP Cuff Size: Regular Adult) Pulse (!) 54 Resp 16 Wt 94.3 kg (208 lb) LMP 01/06/2009 BMI 32.34 kg/m Last 5 Encounter Wt Readings: Date: Wt: 04/17/2023 94.3 kg (208 lb) 04/06/2023 93 kg (205 lb) 02/10/2023 95.7 kg (211 lb)1 01/03/2023 97.4 kg (214 lb 12.8 oz) 10/25/2022 98.4 kg (217 lb) General Appearance: Well appearing, alert, in no acute distress, well-hydrated, well nourished. and Obese. Neck: Supple, no adenopathy; thyroid symmetric, normal size, no bruits. Lungs: Lungs clear to auscultation. No wheezing, rhonchi, rales.. Heart: RRR without murmur, gallop, or rubs. No ectopy. Abdomen: Normal abdominal exam, Abdomen soft, non-tender. Bowel sounds normal. No masses, organomegaly. Extremities: No deformities, edema, skin discoloration, Peripheral Pulses: Normal. Neurologic: Gait normal. Sensation to light touch intact.. Health Maintenance List Covid-19 Vaccine( season) due on 04/21/2023 Colorectal Cancer Screening due on 02/11/2024 Annual PCP Team Chronic Disease Visit due on 04/06/2024 Diabetes Screening due on 03/26/2026 Lipid Screening due on 03/26/2028 DTaP,Tdap,Td Vaccine(4 - Td or Tdap) due on 06/10/2030 Bone Density Screening Completed Influenza Vaccine Completed Advance Directive Discussion Completed Depression Assessment Completed RSV Vaccine Completed Hepatitis C Screening Completed Shingrix Vaccine Completed Pneumococcal Vaccine: 65+ Completed HPV Vaccine Aged Out Mammogram Screening Discontinued Spirometry Discontinued Data reviewed Component Latest Ref Rng & Units 12/30/2021 08/29/2022 03/26/2023 Protein, Total 6.3 - 8.0 g/dL 7.1 Albumin 3.9 - 4.9 g/dL 4.3 Calcium 8.5 - 10.2 mg/dL 9.5 Bilirubin, Total 0.2 - 1.3 mg/dL 0.5 Alkaline Phosphatase 34 - 123 U/L 86 AST 13 - 35 U/L 26 ALT 7 - 38 U/L 24 Glucose 74 - 99 mg/dL 117 (H) BUN 7 - 21 mg/dL 8 Creatinine 0.58 - 0.96 mg/dL 0.76 Sodium 136 - 144 mmol/L 138 Potassium 3.7 - 5.1 mmol/L 4.1 Chloride 97 - 105 mmol/L 104 CO2 22 - 30 mmol/L 25 Anion Gap 9 - 18 mmol/L 9 eGFR >=60 mL/min/1.73m 84 Total Cholesterol, Nonfasting <200 mg/dL 195 Triglycerides, Nonfasting <150 mg/dL 65 HDL Cholesterol, Nonfasting >39 mg/dL 94 LDL Cholesterol, Nonfasting <100 mg/dL 88 Non HDL Cholesterol, Nonfasting <130 mg/dL 101 VLDL Cholesterol, Nonfasting <30 mg/dL 13 Total Chol/HDL Ratio, Nonfasting <5.10 mg/dL 2.07 LDL/HDL Ratio, Nonfasting <2.54 mg/dL 0.94 Hemoglobin A1C 4.3 - 5.6 % 5.7 (H) 5.9 (H) Estimated Average Glucose mg/dL 117 123 Vitamin D 25 Hydroxy 31.0 - 80.0 ng/mL 64.5 74.5 69.6 TSH 0.270 - 4.200 mIU/L 1.230 0.705 A/P ASSESSMENT/PLAN: 1. Mixed hyperlipidemia - ICD9: 272.2, ICD10: E78.2 (primary diagnosis) - Controlled - Continue current medications - Counseled on healthy diet and regular exercise 2. Acquired hypothyroidism - ICD9: 244.9, ICD10: E03.9 - Instructed patient on importance of taking on an empty stomach either first thing in the morning or at bedtime. - continue current dose of Synthroid. 3. Elevated hemoglobin A1c - ICD9: 790.29, ICD10: R73.09 - will increase Actos to 30 mg a day. 4. Gastroesophageal reflux disease without esophagitis - ICD9: 530.81, ICD10: K21.9 - managed with diet. 5. Mild persistent asthma without complication - ICD9: 493.90, ICD10: J45.30 - Mild persistent asthma stable - Continue current medications - Avoidance of triggers recommended 6. Bilateral carotid artery stenosis - ICD9: 433.10, 433.30, ICD10: I65.23 - cont current Tx and get a US in 2023 7. 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, right (HCC) - ICD9: 174.9, ICD10: C50.911 - follows with [facility] 8. Class 1 obesity due to excess calories without serious comorbidity with body mass index (BMI) of 33.0 to 33.9 in adult - ICD9: 278.00, V85.33, ICD10: E66.09, Z68.33 Stable - Behavioral intervention 9. Neutropenia, drug-induced (HCC) - ICD9: 288.03, E980.5, ICD10: D70.2 - last few labs have been normal. Will monitor 10. RSD (reflex sympathetic dystrophy) - ICD9: 337.20, ICD10: G90.50 - stable no changes. 11. Vitamin D deficiency - ICD9: 268.9, ICD10: E55.9 - cont replacement 12. Acute pain of left shoulder - ICD9: 719.41, ICD10: M25.512 - will be seeing ortho. Requested Prescriptions Signed Prescriptions Disp Refills levothyroxine (SYNTHROID) 100 mcg tablet 90 tablet 1 Sig: Take 1 tablet by mouth daily before breakfast. ergocalciferol 50,000 unit capsule (VITAMIN D2, DRISDOL) 6 capsule 3 Sig: Every other week pioglitazone (ACTOS) 30 mg tablet 90 tablet 1 Sig: Take 1 tablet by mouth once daily. F/u 6 months extensive check CMP, lipid, UA, TSH, CBC and Vit D prior Patient was asked at end of visit if they had any questions or input regarding the plan of care we had discussed. Liam Wilkins MD documented in this encounter [facility] 04-11-2023 History of Present illness Narrative Radiology Service Progress Note PATIENT NAME: Montserrat Aguayo DATE OF SERVICE: April 11, 2023 TIME: 9:54 AM PATIENT IDENTITY VERIFICATION COMPLETED USING TWO (2) IDENTIFIERS: Name and Date of confirmed by patient verbally. FALL SCREENING: Has the patient had 2 falls in the last year or 1 fall with injury or currently using an Ambulatory Assistive Device (Walker, Cane, Wheelchair, Crutches, etc.)? No PATIENT GENDER DATA: Female. status: : No status: NO. PATIENT RELEVANT IMPLANT DATA REVIEWED: Yes RADIOLOGY DEPARTMENT: MR; Exam(s) Completed: Upper MSK: Shoulder, left PERIPHERAL IV DATA: Not applicable SIGNED BY: Shelley Pike RDMS, RVT- [place] ([facility]) April 11, 2023 9:54 AM documented in this encounter [facility] 04-06-2023 History of Present illness Narrative Radiology Service Progress Note PATIENT NAME: Montserrat Aguayo DATE OF SERVICE: April 06, 2023 TIME: 4:13 PM PATIENT IDENTITY VERIFICATION COMPLETED USING TWO (2) IDENTIFIERS: Name and Date of confirmed by patient verbally. FALL SCREENING: Has the patient had 2 falls in the last year or 1 fall with injury or currently using an Ambulatory Assistive Device (Walker, Cane, Wheelchair, Crutches, etc.)? No PATIENT GENDER DATA: Female. status: : No status: NO. PATIENT RELEVANT IMPLANT DATA REVIEWED: Not Applicable RADIOLOGY DEPARTMENT: General X-ray: Exam(s) Completed: Upper Extremity X-Ray(s): Shoulder, AP / TRUE AP / SUPRA OUTLET left PERIPHERAL IV DATA: Not applicable SIGNED BY: RT Patrick(R) April 06, 2023 4:13 PM documented in this encounter [facility] 04-06-2023 History of Present illness Narrative Chief Complaint Patient presents with: Pain: LT shoulder HPI Montserrat Aguayo is a 73 year old female who presents here today for Above Complaints.. Patient was seen for left shoulder pain back on 02/10/2023. She has been doing PHYSICAL THERAPY. She has had 6 sessions and though originally she was making improvement she then had a minor set back with an injury ( dog pulled her arm with the leash) and now the pain is worse and has not improved any with further PHYSICAL THERAPY. Last PHYSICAL THERAPY note : Montserrat Aguayo demonstrates difficulty with lifting, physical activities, recreational activities, working, sleeping, reaching behind back, reaching overhead, and use hand with arm at shoulder level. She has new pain/symptoms that require follow up with PCP to update plan of care. Patient continues to present with impairments in ADL's, overall function, range of motion, strength, symptom management, and tissue tenderness that interfere with heavy exertion, lifting, physical activities, recreational activities, working, sleeping, reaching behind back, reaching overhead, use hand with arm at shoulder level . Current prognosis is Fair due to: clinical presentation, chronic nature of impairments, limited tolerance to activity . She will benefit from continued skilled therapy services to meet the updated goals for this plan of care as noted below. Pt continues to have increased and severe pain. To the point where she struggles to even let the arm sway with normal gait. Sleeping is miserable, and really unable to use the arm at all at this point. Functional Limitations: heavy exertion, lifting, physical activities, recreational activities, working, sleeping, reaching behind back, reaching overhead, use hand with arm at shoulder level Patient had her HEP reduced by PHYSICAL THERAPY and is trying to do them but not making any progress and very painful. Can not put her left arm behind her back. Hurts to use to pen a door and to even lay on it. We did do a steroid injection back on 02/10/2023 with no improvement. Past medical history, appointments, medications, allergies reviewed. Previous Medical History PAST MEDICAL HISTORY Diagnosis Date Acquired hypothyroidism 11/29/2005 Bilateral carotid artery stenosis 07/13/2021 US: 06/2021: Stephen 20-40% 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, right (HCC) 10/05/2017 Cataracts, bilateral 12/20/2016 Some relation to steroids with her asthma. 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 Internal hemorrhoids without mention of complication Irritable bowel syndrome with both constipation and diarrhea 07/28/[address] 01/04/2022 DPA: Deshawn () Mass of left lower leg 07/03/2018 Benign w/u Metabolic syndrome 04/19/2016 Mild persistent asthma 09/07/2011 Mitral valve disorders(424.0) Mixed hyperlipidemia 11/29/2005 Neural foraminal stenosis of cervical spine 03/21/2022 Mod-sever on the left Neutropenia, drug-induced (HCC) 08/11/2011 Obesity Plantar fasciitis 11/24/2013 Primary insomnia 07/06/2021 Right-sided chest wall pain 10/05/2017 Secondary to breast cancer radiation. RSD (reflex sympathetic dystrophy) Sebaceous cyst 01/20/2014 Spinal stenosis, unspecified region other than cervical 03/02/2006 Trigger ring finger of right hand 06/23/2014 Vitamin D deficiency 09/15/2019 Previous Surgical History PAST SURGICAL HISTORY Procedure Laterality Date ADENOIDECTOMY PRIMARY <AGE 14 Adenoidectomy BREAST BIOPSY CORE 04/11/2011 right breast 2:00, 4:00 and 10:00 BREAST BIOPSY INCISIONAL 14 years ago right and left breast- benign BREAST RECONSTRUC W FREE FLAP 12/13/2012 bilateral breast BREAST RECONSTRUC W TISS EXPANDR 05/25/2011 right breast with elevation of the serratus flap CARDIAC CATH 03/20/2017 normal, by Dr. Colvin COLONOSCOPY FLX DX W/COLLJ SPEC WHEN PFRMD 04/08/2007 COLONOSCOPY FLX DX W/COLLJ SPEC WHEN PFRMD N/A 09/06/2016 MAC COLONOSCOPY FLX DX W/COLLJ SPEC WHEN PFRMD 02/10/2019 Colonoscopy INSJ TUNNELED CTR VAD W/SUBQ PORT AGE 5 YR/> 07/06/2011 left IJ MASTECTOMY, SIMPLE, COMPLETE 05/25/2011 right breast skin-sparing with SLND/level 1 LND MASTECTOMY, SIMPLE, COMPLETE 12/13/2012 prophylactic left breast PAST SURGICAL HISTORY OF squamous cell skin ca nose, lips, face PAST SURGICAL HISTORY OF 1972 removal of sweat glands (bilateral axilla (right x 2)and groin) PAST SURGICAL HISTORY OF 03/06/2016 removal of polyp at [facility] COVID-19 VACCINE, AGE 12+ YR (PURPLE TOP) 09/11/2020 first vaccine REM LESION TRUNK,ARM, LEG <0.5 CM 01/24/2014 Exc. 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 01/18/2012 Removal left IJ port RPR COMPLEX RETINA DETACH VITRECT &MEMBRANE PEEL 09/2014 left retina SIGMOIDOSCOPY FLX DX W/COLLJ SPEC BR/WA IF PFRMD 01/27/2002 Sigmoidoscopy TONSILLECTOMY PRIMARY/SECONDARY <AGE 12 Tonsillectomy Family History FAMILY HISTORY Problem Relation Age of Onset Breast Cancer Mother dx in her 50's other (uterine cancer) Mother dx before breast cancer Heart Father MT Headache Sister other (other cances) Sister no known family h/o: ovarian; prostate, colon, pancreatic, lung, thyroid, brain, melenoma, leukemia, sarcomas other (rectal cancer) Paternal Grandmother 95 Breast Cancer Maternal Aunt 1) details unknown Breast Cancer Maternal Aunt 2) details unknown Patient Allergies ALLERGIES Allergen Reactions Typhoid Vaccine Intolerance Adhesive Tape (Haley* Other: See Comments after 2 days area becomes red and itches Cats Intolerance Diclofenac Other: See Comments elevated liver enz Dogs Intolerance Dust Intolerance Environmental [Othe* Other: See Comments sneezing Meloxicam Other: See Comments Swollen eyelids Mold Intolerance Tegretol [Carbamaze* Intolerance blood problem Current Medications Current Outpatient Medications on File Prior to Visit Medication Sig acetaminophen (TYLENOL) 500 mg tablet Take 1,000 mg by mouth at bedtime as needed. albuterol (PROVENTIL) 2.5 mg /3 mL (0.083 %) nebulizer solution inhale 3 milliliters in nebulizer every 4 hours if needed for wheezing /SHORTNESS OF BREATH. USE OVER 5 -15 MINUTES amitriptyline (ELAVIL) 25 mg tablet take 2 tablets by mouth at bedtime atorvastatin (LIPITOR) 40 mg tablet take 1 tablet by mouth once daily COMPOUNDED PRESCRIPTION NEBULIZER and supplies FOR HOME USE. DX: J45.30, J45.90. Length of need is life. This is a medically necessary devise for management of patients lung disease. Current machine recently stopped working. While trying to use it started to smoke and stopped. ergocalciferol 50,000 unit capsule (VITAMIN D2, DRISDOL) Take 1 capsule by mouth one time a week. (Patient taking differently: Take 50,000 Units by mouth. Every other week) fluticasone-salmeterol (ADVAIR, WIXELA) 250-50 mcg/dose inhaler Inhale 1 Puff as instructed twice daily. levothyroxine (SYNTHROID) 100 mcg tablet take 1 tablet by mouth EVERY MORNING BEFORE BREAKFAST naproxen (NAPROSYN) 500 mg tablet Take 1 tablet by mouth two times a day as needed (for pain/inflammation). Take with food. pioglitazone (ACTOS) 15 mg tablet Take 1 tablet by mouth once daily. sertraline (ZOLOFT) 100 mg tablet Take one tablet by mouth once a day. (Patient taking differently: Take half tablet by mouth once a day.) VENTOLIN HFA 90 mcg/actuation inhaler Inhale 2 Puffs as instructed every 4 hours as needed for wheezing/shortness of breath. No current facility-administered medications on file prior to visit. Social History Social History Tobacco Use Smoking status: Former Packs/day: 2.00 Years: 12.00 Additional pack years: 0.00 Total pack years: 24.00 Types: Cigarettes Quit date: 06/25/1981 Years since quittin.8 Smokeless tobacco: Never Vaping Use Vaping Use: Never used Substance Use Topics Alcohol use: Yes Comment: wine with meals Drug use: No Review of Symptoms REVIEW OF SYSTEMS See HPI EXAM: BP 132/76 Pulse 80 Resp 14 Wt 93 kg (205 lb) LMP 01/06/2009 BMI 31.87 kg/m General Appearance: Well appearing, alert, in no acute distress, well-hydrated, well nourished.. Musculoskeletal: left shoulder: has pain to palpation of the lateral part of the supraspinatus muscle and anterior portion of the shoulder. Hawken's, Nears, and empty can tests were all positive. Patient can not internally rotate. Health Maintenance List Covid-19 Vaccine( season) due on 04/21/2023 Colorectal Cancer Screening due on 02/11/2024 Annual PCP Team Chronic Disease Visit due on 02/11/2024 Diabetes Screening due on 03/26/2026 Lipid Screening due on 03/26/2028 DTaP,Tdap,Td Vaccine(4 - Td or Tdap) due on 06/10/2030 Bone Density Screening Completed Influenza Vaccine Completed Advance Directive Discussion Completed Depression Assessment Completed Hepatitis C Screening Completed Shingrix Vaccine Completed Pneumococcal Vaccine: 65+ Completed HPV Vaccine Aged Out Mammogram Screening Discontinued Spirometry Discontinued Data reviewed A/P ASSESSMENT/PLAN: 1. Left shoulder pain, unspecified chronicity - ICD9: 719.41, ICD10: M25.512 (primary diagnosis) Will get - XR SHOULDER GENERAL 3V OR MORE AP/TRUE AP/OTHER LEFT However, Patient has had a steroid injection and doing PHYSICAL THERAPY with no improvement in symptoms. ROM has become worse and strongly suspect a rotator cuff tear. - MRI SHOULDER WO IVCON LEFT 2. Mild intermittent asthma with exacerbation - ICD9: 493.92, ICD10: J45.21 Cont - FLUTICASONE 250 MCG-SALMETEROL 50 MCG/DOSE BLISTR POWDR FOR INHALATION Patient to keep routine appt next week. Liam Wilkins MD documented in this encounter [facility] 04-05-2023 History of Present illness Narrative Episode Visit Count: 6 Therapist That Will Accept/Oversee The Plan Of Care: Alex Mendenhall Start of Care Date: 02/20/23 Onset Date: 01/23/23 Plan of Care Certification Date: 02/20/23 Next Certification Due Date: 03/26/23 REHABILITATION AND SPORTS THERAPY PHYSICAL THERAPY PROGRESS REPORT PLAN OF CARE UPDATE: Assessment: Montserrat Aguayo demonstrates difficulty with lifting, physical activities, recreational activities, working, sleeping, reaching behind back, reaching overhead, and use hand with arm at shoulder level. She has new pain/symptoms that require follow up with PCP to update plan of care. Patient continues to present with impairments in ADL's, overall function, range of motion, strength, symptom management, and tissue tenderness that interfere with heavy exertion, lifting, physical activities, recreational activities, working, sleeping, reaching behind back, reaching overhead, use hand with arm at shoulder level . Current prognosis is Fair due to: clinical presentation, chronic nature of impairments, limited tolerance to activity . She will benefit from continued skilled therapy services to meet the updated goals for this plan of care as noted below. Goals for Episode of Care: created on 02/20/23 through 05/03/23 [place] in home exercise program. Met Patient will decrease pain rating by 2 points to meet minimal clinical important difference for numeric pain rating scale. Not met Perform exercise program at [facility] with decreased report of symptoms/pain in 6 weeks. Not met Perform AROM flexion and abduction to 120 or greater of L shoulder without pain. Improve postural awareness while seated or standing. Not met Patient Goals: Pt. 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 To the point where she struggles to even let the arm sway with normal gait. Sleeping is miserable, and really unable to use the arm at all at this point. Functional Limitations: heavy exertion, lifting, physical activities, recreational activities, working, sleeping, reaching behind back, reaching overhead, use hand with arm at shoulder level Pain: Pain Pain Level: 9 Pain Location: Shoulder - Left Description: Sharp Frequency: Continuous PROMIS Scales Higher is Better 03/13/2023 11/10/2021 Phys Func - Score 41 (mild dysfunction) 48 (within normal limits) Phys Func - Percentile 18 % 42 % Self-Eff Symptom - Score 38 (Low) 56 (Average) Self-Eff Symptom - Percentile 12 % 73 % T-scores: mean of general population = 50. 5 points is clinically meaningfully difference Percentiles provide an indication of how the patient's score ranks in relation to the general population. Higher percentile rankings indicate better function/quality of life. 50th percentile is the average of the general population and indicates half of respondents had a worse score. OBJECTIVE MEASURES WITH LEVEL OF FUNCTION: UE AROM L Shoulder Flex: 60 Degrees L Shoulder ABduction: 30 Degrees L Shoulder Internal Rotation (Functional): greater trochanter L Shoulder External Rotation (Functional): Has to move head to hand to compensate TREATMENT: Therapeutic Exercise: 1: Shoulder pulleys x20 into flexion 2: Shoulder isometrics 4 ways- IR, ER, flexion, abduction 3x10, 5 sec holds Skilled Intervention: Patient was educated in proper exercise technique and purpose for exercises. Skilled judgment was used in selection of appropriate interventions. Provided written instruction for home exercise program to facilitate proper performance and compliance. Correct performance of therapeutic exercises was facilitated with verbal, visual, and tactile cuing. Manual Therapy: 1: PROM shoulder flexion, scaption, and ER at side to tolerance 2: Gentle STM to L deltoid, infraspinatus, upper trap with push to tolerance Skilled Intervention: Manual skills to improve joint mobility, ROM, and decrease pain. Utilized anatomy knowledge of the therapist, and assessment of patient's response to intervention. Billing Therapeutic Exercise Treatment Minutes: 10 Manual TherapyTreatment Minutes: 30 Skilled Treatment Time Minutes (timed and untimed codes): 40 Total Session Time (minutes): 40 Session Start Time : 1529 Session Stop Time : 1609 Alex Mendenhall PT documented in this encounter [facility] 04-04-2023 Miscellaneous Notes Patient scheduled. Namrata Clifford MA Left msg for pt to return call. See if patient can see me this Sunday Afternoon for persistent left shoulder pain. documented in this encounter [facility] 03-27-2023 Miscellaneous Notes Left detailed message for patient. Namrata Clifford MA I will send a med for her to take as needed. She can also take tylenol arthritis OTC. Cont with Physical Therapy and follow up with Dr. Wilkins if still not improving. Obdulia Rowley PA-C Pt called and she saw her physical therapist and pt is not getting better and he recommended she contact her pcp for an anti inflammatory medication. Pt reports if she needs to be seen for this [facility] . Please advise pt. Antionette Loo LPN documented in this encounter [facility] 03-27-2023 History of Present illness Narrative Episode Visit Count: 5 Therapist That Will Accept/Oversee The Plan Of Care: Alex Mendenhall Start of Care Date: 02/20/23 Onset Date: 01/23/23 Plan of Care Certification Date: 02/20/23 Next Certification Due Date: 03/26/23 REHABILITATION AND SPORTS THERAPY PHYSICAL THERAPY TREATMENT NOTE ASSESSMENT: Montserrat Aguayo tolerated the session with decreased symptoms. She demonstrated difficulty with L shoulder pain with all ADLs and movements. The patient will continue to benefit from ongoing skilled physical therapy to progress toward set goals and for reassessment by supervising therapist. PLAN FOR NEXT VISIT: [place] SUBJECTIVE: Pt having horrible pain today. Any and all movements hurt. She had to walk dogs and mow the lawn at the end of last week and feels this may have flared things up Pain: Pain Pain Level: 9 Pain Location: Shoulder - Left Description: Sharp Frequency: Continuous OBJECTIVE MEASURES WITH LEVEL OF FUNCTION: Sharp anterolateral shoulder pain with palpation and all movements TREATMENT: Therapeutic Exercise: 1: Shoulder pulleys x20 into flexion 2: Shoulder isometrics 4 ways- IR, ER, flexion, abduction 3x10, 5 sec holds Skilled Intervention: Patient was educated in proper exercise technique and purpose for exercises. Skilled judgment was provided in selection of appropriate interventions. Manual Therapy: 1: PROM shoulder flexion, scaption, and ER at side to tolerance 2: Vibration of LUE in tolerable positions and then working deeper into PROM in above ntoed ranges Skilled Intervention: Manual skills to improve joint mobility, ROM, and decrease pain. Utilized anatomy knowledge of the therapist, and assessment of patient's response to intervention. Billing Therapeutic Exercise Treatment Minutes: 10 Manual TherapyTreatment Minutes: 28 Skilled Treatment Time Minutes (timed and untimed codes): 38 Total Session Time (minutes): 38 Session Start Time : 1532 Session Stop Time : 1610 Alex Mendenhall PT documented in this encounter [facility] 03-16-2023 History of Present illness Narrative Episode Visit Count: 3 Therapist That Will Accept/Oversee The Plan Of Care: Alex Mendenhall Start of Care Date: 02/20/23 Onset Date: 01/23/23 Plan of Care Certification Date: 02/20/23 Next Certification Due Date: 03/26/23 REHABILITATION AND SPORTS THERAPY PHYSICAL THERAPY TREATMENT NOTE ASSESSMENT: Montserrat Aguayo tolerated the session with decreased symptoms and no issues. She demonstrated improvements in tolerance for shoulder strengthening. The patient will continue to benefit from ongoing skilled physical therapy to progress toward set goals. PLAN FOR NEXT VISIT: Continue manual as needed, progress to periscapular strengthening SUBJECTIVE: Pt doing better tonight, but still weak and painful at times Pain: Pain Pain Level: 4 Pain Location: Shoulder - Left Description: Aching OBJECTIVE MEASURES WITH LEVEL OF FUNCTION: Tenderness to below noted mm TREATMENT: Therapeutic Exercise: 1: *Full can 2x10, 1-2# 2: Shoulder pulleys into flexion [id number] 3: PiTB ER 2x10 4: Flexion isometrics 2x10, 5 sec holds 5: SL ER 2# 2x10 Skilled Intervention: Patient was educated in proper exercise technique and purpose for exercises. Skilled judgment was provided in selection of appropriate interventions. Provided written instruction for home exercise program to facilitate proper performance and compliance. Correct performance of therapeutic exercises was facilitated with verbal, visual, and tactile cuing. Manual Therapy: 1: Assisted shoulder motion 2: STM to Infra, supra, levator Skilled Intervention: Manual skills to improve joint mobility, ROM, and decrease pain. Utilized anatomy knowledge of the therapist, and assessment of patient's response to intervention. Billing Therapeutic Exercise Treatment Minutes: 30 Manual TherapyTreatment Minutes: 10 Skilled Treatment Time Minutes (timed and untimed codes): 40 Total Session Time (minutes): 40 Session Start Time : 1634 Session Stop Time : 1714 Alex Mendenhall PT documented in this encounter [facility] 03-01-2023 Miscellaneous Notes Patient has been identified by name and date of : Yes Patient phones for refill(s): Requested Prescriptions Pending Prescriptions Disp Refills atorvastatin (LIPITOR) 40 mg tablet [Pharmacy Med Name: ATORVASTATIN 40 MG TABLET] 90 tablet 1 Sig: take 1 tablet by mouth once daily Date of last office visit in primary care: 02/10/2023 Next appointment scheduled 03/13/2023 Please advise. Thank you. Candice Toney LPN documented in this encounter [facility] 02-20-2023 History of Present illness Narrative Episode Visit Count: 1 Therapist That Will Accept/Oversee The Plan Of Care: Sherry Bruce Start of Care Date: 02/20/23 Onset Date: 01/23/23 Plan of Care Certification Date: 02/20/23 Next Certification Due Date: 03/26/23 Patient Identified by Name and Date of : Yes REHABILITATION AND SPORTS THERAPY PHYSICAL THERAPY EVALUATION PLAN OF CARE: Assessment: Montserrat Aguayo presents with diagnosis of acute pain of the L shoulder that interferes with reaching behind back, reaching overhead, use hand with arm at shoulder level, dressing, grooming . She presents with impairments in ADL's, independence in exercise, overall function, posture, range of motion, and symptom management. PROMIS (Patient-Reported Outcomes Measurement Information System) scores were reviewed and all domains identified as within normal limits. Prognosis for therapy is Fair due to: chronic nature of impairments, advanced age, limited tolerance to activity, clinical presentation . She will benefit from skilled therapy services to meet the goals established for this plan of care as noted below. Goals for Episode of Care: created on 02/20/23 through 04/02/23 Stuart in home exercise program. Patient will decrease pain rating by 2 points to meet minimal clinical important difference for numeric pain rating scale. Perform exercise program at [facility] with decreased report of symptoms/pain in 6 weeks. Perform AROM of L shoulder without pain. Improve postural awareness. Patient Goals: Pt. wants to return to working out at [facility] Planned Interventions, Frequency, and Duration: Current Frequency: 2x/week Duration: 6 weeks Total Number of Visits Planned: 12 Planned Treatment Interventions: Therapeutic exercise (87620), Manual therapy ([id number]), Self-retirement management ([id number]), Neuromuscular re-education (43258) PLAN FOR NEXT VISIT: Assess repsonse to median nerve glides and add postural exercises in the supine position Patient demonstrates good understanding of plan of care and treatment. The above goals and plan of care were discussed and agreed upon by patient/family. SUBJECTIVE: pt. presents with left shoulder pain. recieved Steroid injection 02/10 and states it did not do much. Still does neck exercises that she was given last time she saw PT for her neck. Feels shoulder pain is related to increased work aorund the house. Pt. has diagnosis of stenosis in neckand has used some ice for pain managment. Pt. bought a new mattress to improve sleep. Has been very compliant with previous HEP program. Side bending neck to the left decreases shoulder pain. Any active movement of the shoulder is painful. Patient Goals: Pt. 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 Cervical Arterial Dysfunction Clinical Reasoning: No identified risk factors Cervical Myelopathy: Age > 45 yo Cervical Myelopathy Diagnostic Rule: Proceed with caution Red Flags - Cervical Cancer Red Flags: History of Cancer, Age >50 or <20 Cancer Clinical Reasoning: Proceed with caution Infection Clinical Reasoning: No identified risk factors. Cervical Arterial Dysfunction Clinical Reasoning: No identified risk factors Cervical Myelopathy: Age > 45 yo Cervical Myelopathy Diagnostic Rule: Proceed with caution Spine History Symptoms Location at Onset: Neck, Arm Symptoms Since Onset: Worsening Pain is Worse Always: On the Move Pain is Better Always: Rest Sleeping Position: Side lying left, Side lying right (has switched to sleeping on back to reliev pain) Sleep Affected by Pain: Pain keeps from falling asleep, Pain awakens Pain: Pain Pain Level: 3 (Pain is relieved in supine position.) Pain Location: Shoulder - Left Description: Aching Frequency: With movement Post Treatment Pain Post Treatment Pain Level: 5 Post Treatment Pain Location: Shoulder - Left Post Treatment Pain Description: (with movement) PROMIS Scales Higher is Better 11/10/2021 Phys Func - Score 48 (within normal limits) Phys Func - Percentile 42 % Self-Eff Symptom - Score 56 (Average) Self-Eff Symptom - Percentile 73 % T-scores: mean of general population = 50. 5 points is clinically meaningfully difference Percentiles provide an indication of how the patient's score ranks in relation to the general population. Higher percentile rankings indicate better function/quality of life. 50th percentile is the average of the general population and indicates half of respondents had a worse score. OBJECTIVE MEASURES WITH LEVEL OF FUNCTION: Posture / Alignment Posture: Rounded shoulders, Increased thoracic kyphosis, Forward head Cervical Spine ROM Cervical ROM : Limitation AROM Cervical Retraction AROM: Minimal limitation (combined with retraction sends pain bilaterally. concordant symptoms) Cervical Flexion AROM: Normal Cervical Extension AROM: Moderate limitation (concordant symptoms) Cervical Side-Bend Right AROM: Minimal limitation (concordant symptoms) Cervical Side-Bend Left AROM: Normal Cervical Rotation Right AROM: Normal (no symptoms) Cervical Rotation Left AROM: Normal (no symptoms) Repeated Test Movements - Cervical Cervical RET - Symptoms During: increases Cervical RET - Symptoms After: worse (pt. reports the makes it worse. - during active movement) Cervical Pretest Symptoms Lying: No symptoms in supine - resolved Static Testing - Cervical Sustained Cervical Flexion: no effect Sustained Cervical Retraction: worse (Combined with shoulder retraction caused increased pain.) Sustained Cervical Extension: worse UE AROM L UE AROM: Impaired L Shoulder Flex: (Limited. Imrpoved ROM when eblow is flexed) L Shoulder ABduction: (Limited. Imrpoved ROM when eblow is flexed) L Shoulder External Rotation (Functional): Normal UE PROM L Shoulder Flex: (supine, limited due to pain. improved motion with elbow flexion) L Shoulder ABduction: (supine, limited due to pain. improved motion with elbow flexion) Special Tests - Cervical Cervical Special Tests: Cervical Compression, Cervical Distraction, Median Nerve, Radial Nerve, Ulnar Nerve Cervical Compression: Negative (pt. experiences no pain in the supine position) Cervical Distraction: Negative Median Nerve: Left Positive (reduced symptoms with ipsilateral cervical side flexion -- >90 active L shoulder abd well tolerated with elbow flexed) Ulnar Nerve: Left Negative Radial Nerve: Left Negative Education: Education Learning Preferences: Explanation, Demonstration, Performance Barriers: None Learning/educational needs: Home exercise program, Plan of Care, Posture Education Provided: Yes, see treatment interventions for education provided Education Provided To: Patient Education Mode/Type: Literature/Printed Materials Response to Education/Teach Back: States/Identifies TREATMENT: PT Treatment Interventions: Therapeutic Exercise, Self-[facility] Management Evaluation Therapeutic Exercise: 1: Chin tucks with scapular retraction 1x10 DC due to increase in symptoms 2: *Seated Median nerve glides at 45 degrees abduction 3x10 reps (improves concordant symptoms) 3: seated scapular retraction 1x15 DC due to pain (cues for performing without neck movement and before the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 10/05/2017 Secondary to breast cancer radiation. RSD (reflex sympathetic dystrophy) Sebaceous cyst 01/20/2014 Spinal stenosis, unspecified region other than cervical 03/02/2006 Trigger ring finger of right hand 06/23/2014 Vitamin D deficiency 09/15/2019 Previous Surgical History PAST SURGICAL HISTORY Procedure Laterality Date ADENOIDECTOMY PRIMARY <AGE 14 Adenoidectomy BREAST BIOPSY CORE 04/11/2011 right breast 2:00, 4:00 and 10:00 BREAST BIOPSY INCISIONAL 14 years ago right and left breast- benign BREAST RECONSTRUC W FREE FLAP 12/13/2012 bilateral breast BREAST RECONSTRUC W TISS EXPANDR 05/25/2011 right breast with elevation of the serratus flap CARDIAC CATH 03/20/2017 normal, by Dr. Colvin COLONOSCOPY FLX DX W/COLLJ SPEC WHEN PFRMD 04/08/2007 COLONOSCOPY FLX DX W/COLLJ SPEC WHEN PFRMD N/A 09/06/2016 MAC COLONOSCOPY FLX DX W/COLLJ SPEC WHEN PFRMD 02/10/2019 Colonoscopy INSJ TUNNELED CTR VAD W/SUBQ PORT AGE 5 YR/> 07/06/2011 left IJ MASTECTOMY, SIMPLE, COMPLETE 05/25/2011 right breast skin-sparing with SLND/level 1 LND MASTECTOMY, SIMPLE, COMPLETE 12/13/2012 prophylactic left breast PAST SURGICAL HISTORY OF squamous cell skin ca nose, lips, face PAST SURGICAL HISTORY OF 1972 removal of sweat glands (bilateral axilla (right x 2)and groin) PAST SURGICAL HISTORY OF 03/06/2016 removal of polyp at [facility] [employer] COVID-19 VACCINE, AGE 12+ YR (PURPLE TOP) 09/11/2020 first vaccine REM LESION TRUNK,ARM, LEG <0.5 CM 01/24/2014 Exc. 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 01/18/2012 Removal left IJ port RPR COMPLEX RETINA DETACH VITRECT &MEMBRANE PEEL 09/2014 left retina SIGMOIDOSCOPY FLX DX W/COLLJ SPEC BR/WA IF PFRMD 01/27/2002 Sigmoidoscopy TONSILLECTOMY PRIMARY/SECONDARY <AGE 14 Tonsillectomy Family History FAMILY HISTORY Problem Relation Age of Onset Breast Cancer Mother dx in her 50's other (uterine cancer) Mother dx before breast cancer Heart Father [place] Headache Sister other (other cances) Sister no known family h/o: ovarian; prostate, colon, pancreatic, lung, thyroid, brain, melenoma, leukemia, sarcomas other (rectal cancer) Paternal Grandmother 95 Breast Cancer Maternal Aunt 1) details unknown Breast Cancer Maternal Aunt 2) details unknown Patient Allergies ALLERGIES Allergen Reactions Typhoid Vaccine Intolerance Adhesive Tape (Haley* Other: See Comments after 2 days area becomes red and itches Cats Intolerance Diclofenac Other: See Comments elevated liver enz Dogs Intolerance Dust Intolerance Environmental [Othe* Other: See Comments sneezing Meloxicam Other: See Comments Swollen eyelids Mold Intolerance Tegretol [Carbamaze* Intolerance blood problem Current Medications Current Outpatient Medications on File Prior to Visit Medication Sig sertraline (ZOLOFT) 100 mg tablet Take one tablet by mouth once a day. pioglitazone (ACTOS) 15 mg tablet Take 1 tablet by mouth once daily. amitriptyline (ELAVIL) 25 mg tablet Take 2 tablets by mouth daily at bedtime. atorvastatin (LIPITOR) 40 mg tablet Take 1 tablet by mouth once daily. levothyroxine (SYNTHROID) 100 mcg tablet Take 1 tablet by mouth daily before breakfast. acetaminophen (TYLENOL) 500 mg tablet Take 1,000 mg by mouth at bedtime as needed. ergocalciferol 50,000 unit capsule (VITAMIN D2, DRISDOL) Take 1 capsule by mouth one time a week. (Patient taking differently: Take 50,000 Units by mouth. Every other week) fluticasone-salmeterol (ADVAIR, WIXELA) 250-50 mcg/dose inhaler Inhale 1 Puff as instructed twice daily. VENTOLIN HFA 90 mcg/actuation inhaler Inhale 2 Puffs as instructed every 4 hours as needed for wheezing/shortness of breath. albuterol (PROVENTIL) 2.5 mg /3 mL (0.083 %) nebulizer solution inhale 3 milliliters in nebulizer every 4 hours if needed for wheezing /SHORTNESS OF BREATH. USE OVER 5 -15 MINUTES clobetasol (TEMOVATE) 0.05 % ointment Apply 1 application to affected area twice daily. TO AFFECTED AREA for 2 weeks. COMPOUNDED PRESCRIPTION NEBULIZER and supplies FOR HOME USE. DX: J45.30, J45.90. Length of need is life. This is a medically necessary devise for management of patients lung disease. Current machine recently stopped working. While trying to use it started to smoke and stopped. No current facility-administered medications on file prior to visit. Social History Social History Tobacco Use Smoking status: Former Packs/day: 2.00 Years: 12.00 Pack years: 24.00 Types: Cigarettes Quit date: 06/25/1981 Years since quittin.3 Smokeless tobacco: Never Vaping Use Vaping Use: Never used Substance Use Topics Alcohol use: Yes Comment: wine with meals Drug use: No Review of Symptoms REVIEW OF SYSTEMS See HPI EXAM: Wt 98.4 kg (217 lb) LMP 01/06/2009 BMI 33.73 kg/m General Appearance: Well appearing, alert, in no acute distress, well-hydrated, well nourished.. Abdomen: Normal abdominal exam, Abdomen soft, non-tender. Bowel sounds normal. No masses, organomegaly. Musculoskeletal: there is pain to palpation of the right lateral lower ribs but no nodular abnormalities palpated or step offs. . Health Maintenance List ANNUAL PCP TEAM CHRONIC DISEASE VISIT due on 09/23/2023 COLORECTAL CANCER SCREENING due on 02/11/2024 DIABETES SCREEN due on 08/29/2025 LIPID SCREEN due on 08/30/2027 DTAP,TDAP,TD(4 - Td or Tdap) due on 06/10/2030 BONE DENSITY Completed INFLUENZA Completed ADVANCE DIRECTIVE DISCUSSION Completed DEPRESSION ASSESSMENT Completed HEPATITIS C SCREENING Completed SHINGRIX VACCINE Completed COVID-19 VACCINE Completed PNEUMOCOCCAL: 65+ Completed MAMMOGRAM Discontinued SPIROMETRY Discontinued Data reviewed Rib x-rays shows there may be some arthritic changes in the area of pain. A/P ASSESSMENT/PLAN: 1. Rib pain on right side - ICD9: 786.50, ICD10: R07.81 Check - NM BONE WHOLE BODY: if normal will proceed with PHYSICAL THERAPY. Liam Wilkins MD documented in this encounter [facility] 10-16-2022 Miscellaneous Notes Patient contacted and scheduled with Dr. Wilkins. 10/25. Patient ok with waiting until 10/25. Let her know if things become worse reach out. Namrata Clifford MA Left message for pt to call back and schedule in 1 pm spot if she is able. Please make her a 40 min appointment. Sabas Peacock LPN Ask her schedule follow up for us to re-evaluate and discuss next steps. TC to patient who verbalizes understanding of results. Pt states she is still having pain and is finding it very difficult to sleep. Patient states the pain is worse when she is sitting or laying down and is less noticeable when up and moving around. Please advise. Thank you. JUAREZ Toribio Left message for pt to contact office. Sabas Peacock LPN Let patient know that her CT scan was normal. There was a small nodule/splenule noted but when compared to CT from 2006 this is stable. How is patient feeling? Obdulia Rowley PA-C documented in this encounter [facility] 10-06-2022 History of Present illness Narrative Radiology Service Progress Note PATIENT NAME: Montserrat Aguayo DATE OF SERVICE: October 06, 2022 TIME: 3:44 PM PATIENT IDENTITY VERIFICATION COMPLETED USING TWO (2) IDENTIFIERS: Name and Date of confirmed by patient verbally. FALL SCREENING: Has the patient had 2 falls in the last year or 1 fall with injury or currently using an Ambulatory Assistive Device (Walker, Cane, Wheelchair, Crutches, etc.)? No PATIENT GENDER DATA: Female. status: : No status: NO. PATIENT RELEVANT IMPLANT DATA REVIEWED: Yes RADIOLOGY DEPARTMENT: CT; Exam(s) Completed: Abdomen/Pelvis PERIPHERAL IV DATA: Not applicable SIGNED BY: RT Patricia(R) October 06, 2022 3:44 PM documented in this encounter [facility] 09-26-2022 Miscellaneous Notes Noted. Agree. Pt notified of results. States constipation is notmal for her. Gets this when she doesn't stay hydrated. Pt reports she is still having pain right side in rib area. States it is a little better than it was. Rates it as 2 on pain scale of 1-10. Does want to proceed with CT scan scheduled on 10/06 wants to make sure everything is ok. States in the past she had a normal mammogram then 2 wks later had a cyst in her breast and was diagnosed with stage 4 breast cancer so she wants to r/o kidney stone or cancer. Advised pt would contact her if any further instructions from Obdulia. Sabas Peacock LPN Let patient know that overall her xrays were okay. Abdomen xray does show moderate amount of stool burden (constipation). Is she still having the abdominal pain? Obdulia Rowley PA-C documented in this encounter [facility] 09-26-2022 Miscellaneous Notes Pt notified of results, verbalizes understanding. Sabas Peacock LPN Let patient know her neck CT showed no masses. documented in this encounter [facility] 09-25-2022 History of Present illness Narrative Radiology Service Progress Note DATE OF SERVICE: September 25, 2022 TIME: 3:21 PM PATIENT IDENTITY VERIFICATION COMPLETED USING TWO (2) STANDARD IDENTIFIERS: Name and Date of confirmed by patient verbally. FALL SCREENING: Has the patient had 2 falls in the last year or 1 fall with injury or currently using an Ambulatory Assistive Device (Walker, Cane, Wheelchair, Crutches, etc.)? No PATIENT GENDER DATA: Female. status: : No status: NO. PATIENT RELEVANT IMPLANT DATA REVIEWED: Yes ALLERGIES: Reviewed and unchanged CONTRAST ALLERGY: NO. EXAM: CT -CONTRAST INDUCED NEPHROPATHY RISK FACTORS: Patient age > 60 years CREATININE: Creatinine Date Value Ref Range Status 08/29/2022 0.76 0.58 - 0.96 mg/dL Final 07/04/2021 0.83 0.58 - 0.96 mg/dL Final 06/04/2020 0.75 0.58 - 0.96 mg/dL Final Estimated Glomerular Filtration Rate Date Value Ref Range Status 08/29/2022 84 >=60 mL/min/1.73m Final Comment: Estimated Glomerular Filtration Rate (eGFR) is calculated using the 2020 CKD-EPI creatinine equation. This equation utilizes serum creatinine, sex, and age as parameters. The creatinine assay has traceable calibration to isotope dilution-mass spectrometry. Refer to KDIGO guidelines for clinical interpretation. In patients with unstable renal function, e.g. those with acute kidney injury, the eGFR may not accurately reflect actual GFR. eGFR- Date Value Ref Range Status 07/04/2021 >60 Final P.O.C.T. RESULTS: POC done: Yes, See Lab Tab September 25, 2022 TREATMENT: N/A PERIPHERAL IV DATA: Ambulatory: A peripheral IV was started in the Left antecubital site with a Angio cath: 22 gauge. RADIOLOGY DEPARTMENT: CT; Exam(s) Completed: Neck SIGNATURE: RT Patricia(R) PATIENT NAME: Montserrat Aguayo DATE: September 25, 2022 TIME: 3:21 PM documented in this encounter [facility] 09-25-2022 Miscellaneous Notes Noted Pt notified of results. Pt verbalizes understanding. Pt states you had advised ER if not feeling better or sx worsen. Pt states she is not feeling better but is going to try to wait on x-ray results. Sabas Peacock LPN Let patient know that urine and culture were negative. Xray report has not been read by radiology yet. Will call back once I have the radiologist read available documented in this encounter [facility] 09-22-2022 History of Present illness Narrative Radiology Service Progress Note PATIENT NAME: Montserrat Aguayo DATE OF SERVICE: September 22, 2022 TIME: 11:39 AM PATIENT IDENTITY VERIFICATION COMPLETED USING TWO (2) IDENTIFIERS: Name and Date of confirmed by patient verbally. FALL SCREENING: Has the patient had 2 falls in the last year or 1 fall with injury or currently using an Ambulatory Assistive Device (Walker, Cane, Wheelchair, Crutches, etc.)? No PATIENT GENDER DATA: Female. status: : No status: NO. PATIENT RELEVANT IMPLANT DATA REVIEWED: Yes RADIOLOGY DEPARTMENT: General X-ray: Exam(s) Completed: Rib X-Ray: Right Abdomen X-Ray: Abdomen PERIPHERAL IV DATA: Not applicable SIGNED BY: RT Roseline(R) September 22, 2022 11:39 AM documented in this encounter [facility] 09-22-2022 Instructions Obdulia Rowley PA-C - 09/22/2022 10:59 AM EDT Don't hesitate to go to ER if worsening over the weekend. documented in this encounter [facility] 09-22-2022 History of Present illness Narrative Chief Complaint Patient presents with: Recheck: Was seen in [facility] for hematuria. Having lower right sided pain HPI Montserrat Aguayo is a 72 year old female who presents here today for Above Complaints.. Patient was seen in [facility] on 09/15 for flank pain. She was started on atb and culture only showed mixed bacteria. UA dip did show trace hemoglobin and leuks. Pain started around the . She continues to have R flank pain. No dysuria. Some frequency, but this is overall stable for her. Temp is slightly elevated for patient's norm. Last 5 Encounter Temp Readings: Date: Temp: Temp Src: 09/22/2022 37.6 C (99.6 F) 09/15/2022 36.5 C (97.7 F) Tympanic 03/21/2022 36.2 C (97.2 F) 02/22/2022 36.1 C (96.9 F) 11/02/2021 36.6 C (97.9 F) Past medical history, appointments, medications, allergies reviewed. Previous Medical History PAST MEDICAL HISTORY Diagnosis Date Acquired hypothyroidism 11/29/2005 Bilateral carotid artery stenosis 07/13/2021 US: 06/2021: Stephen 20-40% 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, right (HCC) 10/05/2017 Cataracts, bilateral 12/20/2016 Some relation to steroids with her asthma. 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 Internal hemorrhoids without mention of complication Irritable bowel syndrome with both constipation and diarrhea 07/28/[address] 01/04/2022 DPA: Deshwan () Mass of left lower leg 07/03/2018 Benign w/u Metabolic syndrome 04/19/2016 Mild persistent asthma 09/07/2011 Mitral valve disorders(424.0) Mixed hyperlipidemia 11/29/2005 Neural foraminal stenosis of cervical spine 03/21/2022 Mod-sever on the left Neutropenia, drug-induced (HCC) 08/11/2011 Obesity Plantar fasciitis 11/24/2013 Primary insomnia 07/06/2021 Right-sided chest wall pain 10/05/2017 Secondary to breast cancer radiation. RSD (reflex sympathetic dystrophy) Sebaceous cyst 01/20/2014 Spinal stenosis, unspecified region other than cervical 03/02/2006 Trigger ring finger of right hand 06/23/2014 Vitamin D deficiency 09/15/2019 Previous Surgical History PAST SURGICAL HISTORY Procedure Laterality Date ADENOIDECTOMY PRIMARY <AGE 14 Adenoidectomy BREAST BIOPSY CORE 04/11/2011 right breast 2:00, 4:00 and 10:00 BREAST BIOPSY INCISIONAL 14 years ago right and left breast- benign BREAST RECONSTRUC W FREE FLAP 12/13/2012 bilateral breast BREAST RECONSTRUC W TISS EXPANDR 05/25/2011 right breast with elevation of the serratus flap CARDIAC CATH 03/20/2017 normal, by Dr. Colvin COLONOSCOPY FLX DX W/COLLJ SPEC WHEN PFRMD 04/08/2007 COLONOSCOPY FLX DX W/COLLJ SPEC WHEN PFRMD N/A 09/06/2016 MAC COLONOSCOPY FLX DX W/COLLJ SPEC WHEN PFRMD 02/10/2019 Colonoscopy INSJ TUNNELED CTR VAD W/SUBQ PORT AGE 5 YR/> 07/06/2011 left IJ MASTECTOMY, SIMPLE, COMPLETE 05/25/2011 right breast skin-sparing with SLND/level 1 LND MASTECTOMY, SIMPLE, COMPLETE 12/13/2012 prophylactic left breast PAST SURGICAL HISTORY OF squamous cell skin ca nose, lips, face PAST SURGICAL HISTORY OF 1972 removal of sweat glands (bilateral axilla (right x 2)and groin) PAST SURGICAL HISTORY OF 03/06/2016 removal of polyp at [facility] [employer] COVID-19 VACCINE, AGE 12+ YR (PURPLE TOP) 09/11/2020 first vaccine REM LESION TRUNK,ARM, LEG <0.5 CM 01/24/2014 Exc. 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 01/18/2012 Removal left IJ port RPR COMPLEX RETINA DETACH VITRECT &MEMBRANE PEEL 09/2014 left retina SIGMOIDOSCOPY FLX DX W/COLLJ SPEC BR/WA IF PFRMD 01/27/2002 Sigmoidoscopy TONSILLECTOMY PRIMARY/SECONDARY <AGE 14 Tonsillectomy Family History FAMILY HISTORY Problem Relation Age of Onset Breast Cancer Mother dx in her 50's other (uterine cancer) Mother dx before breast cancer Heart Father [place] Headache Sister other (other cances) Sister no known family h/o: ovarian; prostate, colon, pancreatic, lung, thyroid, brain, melenoma, leukemia, sarcomas other (rectal cancer) Paternal Grandmother 95 Breast Cancer Maternal Aunt 1) details unknown Breast Cancer Maternal Aunt 2) details unknown Patient Allergies ALLERGIES Allergen Reactions Typhoid Vaccine Intolerance Adhesive Tape (Haley* Other: See Comments after 2 days area becomes red and itches Cats Intolerance Diclofenac Other: See Comments elevated liver enz Dogs Intolerance Dust Intolerance Environmental [Othe* Other: See Comments sneezing Meloxicam Other: See Comments Swollen eyelids Mold Intolerance Tegretol [Carbamaze* Intolerance blood problem Current Medications Current Outpatient Medications on File Prior to Visit Medication Sig cephALEXin (KEFLEX) 500 mg capsule Take 1 capsule by mouth twice daily for 7 days. sertraline (ZOLOFT) 100 mg tablet Take one tablet by mouth once a day. pioglitazone (ACTOS) 15 mg tablet Take 1 tablet by mouth once daily. amitriptyline (ELAVIL) 25 mg tablet Take 2 tablets by mouth daily at bedtime. atorvastatin (LIPITOR) 40 mg tablet Take 1 tablet by mouth once daily. levothyroxine (SYNTHROID) 100 mcg tablet Take 1 tablet by mouth daily before breakfast. acetaminophen (TYLENOL) 500 mg tablet Take 1,000 mg by mouth at bedtime as needed. ergocalciferol 50,000 unit capsule (VITAMIN D2, DRISDOL) Take 1 capsule by mouth one time a week. (Patient taking differently: Take 50,000 Units by mouth. Every other week) fluticasone-salmeterol (ADVAIR, WIXELA) 250-50 mcg/dose inhaler Inhale 1 Puff as instructed twice daily. VENTOLIN HFA 90 mcg/actuation inhaler Inhale 2 Puffs as instructed every 4 hours as needed for wheezing/shortness of breath. albuterol (PROVENTIL) 2.5 mg /3 mL (0.083 %) nebulizer solution inhale 3 milliliters in nebulizer every 4 hours if needed for wheezing /SHORTNESS OF BREATH. USE OVER 5 -15 MINUTES clobetasol (TEMOVATE) 0.05 % ointment Apply 1 application to affected area twice daily. TO AFFECTED AREA for 2 weeks. COMPOUNDED PRESCRIPTION NEBULIZER and supplies FOR HOME USE. DX: J45.30, J45.90. Length of need is life. This is a medically necessary devise for management of patients lung disease. Current machine recently stopped working. While trying to use it started to smoke and stopped. No current facility-administered medications on file prior to visit. Social History Social History Tobacco Use Smoking status: Former Packs/day: 2.00 Years: 12.00 Pack years: 24.00 Types: Cigarettes Quit date: 06/25/1981 Years since quittin.2 Smokeless tobacco: Never Vaping Use Vaping Use: Never used Substance Use Topics Alcohol use: Yes Comment: wine with meals Drug use: No Review of Symptoms REVIEW OF SYSTEMS See hpi EXAM: BP 132/82 (BP Site: Left Arm, BP Position: Sitting, BP Cuff Size: Large Adult) Pulse 60 Temp 37.6 C (99.6 F) Resp 18 Wt 98.4 kg (217 lb) LMP 01/06/2009 BMI 33.73 kg/m General Appearance: Well appearing, alert, in no acute distress, well-hydrated, well nourished.. Lungs: Lungs clear to auscultation. No wheezing, rhonchi, rales.. Heart: RRR without murmur, gallop, or rubs. No ectopy. Abdomen: Abdomen soft. Bowel sounds normal. No masses, organomegaly, Negative CVA tenderness, deep flank pain to palp on right side.. Musculoskeletal: +pain to palp over right lateral distal rib cage. No bruising on skin noted. +pain with twisting motion. No pain with flexion, extension, or lateral flexion. . Neurologic: Gait normal. Reflexes normal and symmetric. Sensation grossly intact.. Health Maintenance List ANNUAL PCP TEAM CHRONIC DISEASE VISIT due on 09/10/2023 COLORECTAL CANCER SCREENING due on 02/11/2024 DIABETES SCREEN due on 08/29/2025 LIPID SCREEN due on 08/30/2027 DTAP,TDAP,TD(4 - Td or Tdap) due on 06/10/2030 BONE DENSITY Completed INFLUENZA Completed ADVANCE DIRECTIVE DISCUSSION Completed DEPRESSION ASSESSMENT Completed HEPATITIS C SCREENING Completed SHINGRIX VACCINE Completed COVID-19 VACCINE Completed PNEUMOCOCCAL: 65+ Completed MAMMOGRAM Discontinued SPIROMETRY Discontinued Data reviewed Component Latest Ref Rng & Units 09/15/2022 GLUCOSE UA (POCT) Negative mg/dL Negative BILIRUBIN UA (POCT) Negative Negative KETONE UA (POCT) Negative mg/dL Negative SPECIFIC GRAVITY UA (POCT) 1.005 - 1.030 1.010 HEMOGLOBIN/BLOOD UA (POCT) Negative Trace-intact (A) PH UA (POCT) 4.5 - 8.0 7.0 PROTEIN UA (POCT) Negative mg/dL Negative UROBILINOGEN UA (POCT) Normal E.U./dL 0.2 NITRITE UA (POCT) Negative Negative LEUKOCYTES UA (POCT) Negative Trace (A) COLOR UA (POCT) Other CLARITY UA (POCT) Slightly Cloudy Culture 10,000 -<50,000 CFU/ml Mixed microbiota (A) ASSESSMENT/PLAN: 1. Flank pain - ICD9: 789.09, ICD10: R10.9 (primary diagnosis) Recheck UA and culture. Check xrays. Will schedule for CT flank. Discussed possible red flags and when to seek medical attention. - URINALYSIS, WITH MICROSCOPIC - URINE CULTURE - XR ABDOMEN 1V SUPINE - XR RIBS/CHEST 3V AP RIB/OBLS/CXR RIGHT - CT FLANK WO IVCON 2. Rib pain on right side - ICD9: 786.50, ICD10: R07.81 As above - XR RIBS/CHEST 3V AP RIB/OBLS/CXR RIGHT Obdulia Rowley PA-C documented in this encounter [facility] 09-16-2022 Miscellaneous Notes Patient given results and verbalized understanding of instructions given. Rosi Adams Patient urine culture did not show significant infection. If antibiotics are helping can finish those otherwise follow-up with PCP with continued symptoms and for the blood in urine.. documented in this encounter [facility] 09-15-2022 History of Present illness Narrative Images from the original note were not included. Subjective HPI A nontoxic appearing female presents to urgent care with chief complaint of possible UTI. Duration of symptoms 2 days. Associated symptoms frequency, and urgency. Patient states she has had transient back pain. Has been more present to the last few days. Patient denies the use of any [id number] medications or home remedies for symptom management. Patient states pain is a 3/10. Patient denies any fevers, abdominal pain, vomiting, vaginal discharge. Past medical history prescription medication use allergies reviewed. .Patient presents with: Urinary Problem: Pt reported urinary frequency, mid back pain. PAST MEDICAL HISTORY Diagnosis Date Acquired hypothyroidism 11/29/2005 Bilateral carotid artery stenosis 07/13/2021 US: 06/2021: Stephen 20-40% 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, right (HCC) 10/05/2017 Cataracts, bilateral 12/20/2016 Some relation to steroids with her asthma. 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 Internal hemorrhoids without mention of complication Irritable bowel syndrome with both constipation and diarrhea 07/28/[address] 01/04/2022 DPA: Deshawn () Mass of left lower leg 07/03/2018 Benign w/u Metabolic syndrome 04/19/2016 Mild persistent asthma 09/07/2011 Mitral valve disorders(424.0) Mixed hyperlipidemia 11/29/2005 Neural foraminal stenosis of cervical spine 03/21/2022 Mod-sever on the left Neutropenia, drug-induced (HCC) 08/11/2011 Obesity Plantar fasciitis 11/24/2013 Primary insomnia 07/06/2021 Right-sided chest wall pain 10/05/2017 Secondary to breast cancer radiation. RSD (reflex sympathetic dystrophy) Sebaceous cyst 01/20/2014 Spinal stenosis, unspecified region other than cervical 03/02/2006 Trigger ring finger of right hand 06/23/2014 Vitamin D deficiency 09/15/2019 PAST SURGICAL HISTORY Procedure Laterality Date ADENOIDECTOMY PRIMARY <AGE 14 Adenoidectomy BREAST BIOPSY CORE 04/11/2011 right breast 2:00, 4:00 and 10:00 BREAST BIOPSY INCISIONAL 14 years ago right and left breast- benign BREAST RECONSTRUC W FREE FLAP 12/13/2012 bilateral breast BREAST RECONSTRUC W TISS EXPANDR 05/25/2011 right breast with elevation of the serratus flap CARDIAC CATH 03/20/2017 normal, by Dr. Colvin COLONOSCOPY FLX DX W/COLLJ SPEC WHEN PFRMD 04/08/2007 COLONOSCOPY FLX DX W/COLLJ SPEC WHEN PFRMD N/A 09/06/2016 MAC COLONOSCOPY FLX DX W/COLLJ SPEC WHEN PFRMD 02/10/2019 Colonoscopy INSJ TUNNELED CTR VAD W/SUBQ PORT AGE 5 YR/> 07/06/2011 left IJ MASTECTOMY, SIMPLE, COMPLETE 05/25/2011 right breast skin-sparing with SLND/level 1 LND MASTECTOMY, SIMPLE, COMPLETE 12/13/2012 prophylactic left breast PAST SURGICAL HISTORY OF squamous cell skin ca nose, lips, face PAST SURGICAL HISTORY OF 1972 removal of sweat glands (bilateral axilla (right x 2)and groin) PAST SURGICAL HISTORY OF 03/06/2016 removal of polyp at [facility] [employer] COVID-19 VACCINE, AGE 12+ YR (PURPLE TOP) 09/11/2020 first vaccine REM LESION TRUNK,ARM, LEG <0.5 CM 01/24/2014 Exc. 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 pioglitazone (ACTOS) 15 mg tablet Take 1 tablet by mouth once daily. amitriptyline (ELAVIL) 25 mg tablet Take 2 tablets by mouth daily at bedtime. atorvastatin (LIPITOR) 40 mg tablet Take 1 tablet by mouth once daily. levothyroxine (SYNTHROID) 100 mcg tablet Take 1 tablet by mouth daily before breakfast. acetaminophen (TYLENOL) 500 mg tablet Take 1,000 mg by mouth at bedtime as needed. ergocalciferol 50,000 unit capsule (VITAMIN D2, DRISDOL) Take 1 capsule by mouth one time a week. (Patient taking differently: Take 50,000 Units by mouth. Every other week) VENTOLIN HFA 90 mcg/actuation inhaler Inhale 2 Puffs as instructed every 4 hours as needed for wheezing/shortness of breath. albuterol (PROVENTIL) 2.5 mg /3 mL (0.083 %) nebulizer solution inhale 3 milliliters in nebulizer every 4 hours if needed for wheezing /SHORTNESS OF BREATH. USE OVER 5 -15 MINUTES clobetasol (TEMOVATE) 0.05 % ointment Apply 1 application to affected area twice daily. TO AFFECTED AREA for 2 weeks. COMPOUNDED PRESCRIPTION NEBULIZER and supplies FOR HOME USE. DX: J45.30, J45.90. Length of need is life. This is a medically necessary devise for management of patients lung disease. Current machine recently stopped working. While trying to use it started to smoke and stopped. fluticasone-salmeterol (ADVAIR, WIXELA) 250-50 mcg/dose inhaler Inhale 1 Puff as instructed twice daily. FAMILY HISTORY Problem Relation Age of Onset Breast Cancer Mother dx in her 50's other (uterine cancer) Mother dx before breast cancer Heart Father [place] Headache Sister other (other cances) Sister no known family h/o: ovarian; prostate, colon, pancreatic, lung, thyroid, brain, melenoma, leukemia, sarcomas other (rectal cancer) Paternal Grandmother 95 Breast Cancer Maternal Aunt 1) details unknown Breast Cancer Maternal Aunt 2) details unknown Social History Tobacco Use Smoking status: Former Packs/day: 2.00 Years: 12.00 Pack years: 24.00 Types: Cigarettes Quit date: 06/25/1981 Years since quittin.2 Smokeless tobacco: Never Vaping Use Vaping Use: Never used Substance Use Topics Alcohol use: Yes Comment: wine with meals Drug use: No BP 148/82 Pulse 110 Temp 36.5 C (97.7 F) (Tympanic) Resp 18 LMP 01/06/2009 SpO2 97% Hr 89 Review of Systems Constitutional: Negative for chills, fever and malaise/fatigue. HENT: Negative for congestion, ear discharge, ear pain, sinus pain and sore throat. Eyes: Negative for blurred vision, pain, discharge and redness. Respiratory: Negative for cough, hemoptysis, sputum production, shortness of breath, wheezing and stridor. Cardiovascular: Negative for chest pain. Gastrointestinal: Negative for abdominal pain, diarrhea, nausea and vomiting. Genitourinary: Positive for frequency. Negative for dysuria, flank pain, hematuria and urgency. Musculoskeletal: Negative for myalgias. Skin: Negative for itching and rash. Neurological: Negative for dizziness and headaches. Objective Physical Exam Constitutional: General: She is not in acute distress. Appearance: She is not diaphoretic. HENT: Head: Normocephalic. Eyes: Conjunctiva/sclera: Conjunctivae normal. Pupils: Pupils are equal, round, and reactive to light. Cardiovascular: Rate and Rhythm: Normal rate and regular rhythm. Heart sounds: Normal heart sounds. Pulmonary: Effort: Pulmonary effort is normal. No tachypnea, accessory muscle usage or respiratory distress. Breath sounds: Normal breath sounds. No stridor. No wheezing, rhonchi or rales. Abdominal: Palpations: Abdomen is soft. Tenderness: There is no abdominal tenderness. There is no right CVA tenderness, left CVA tenderness, guarding or rebound. Musculoskeletal: Cervical back: No tenderness. Back: Comments: Tenderness noted to highlighted area. No erythema edema. No spinal tenderness. Able to rock on heels stand on toes. Negative straight leg test. No evidence of trauma. Full range of motion. Skin: General: Skin is warm and dry. Neurological: Mental Status: She is alert and oriented to person, place, and time. ASSESSMENT/PLAN: 1. Urinary frequency - ICD9: 788.41, ICD10: R35.0 - UA DIP, URINE (POC) - URINE CULTURE Trace amount leukocytes blood noted on urine dip. Patient placed on Keflex. Will discontinue antibiotics if culture is negative. Follow-up with PCP as scheduled. Red flags prompt reevaluation discussed. Patient was instructed to immediately proceed to emergency room for any new, worsening, or symptoms lasting longer than anticipated. The patient's clinical presentation is otherwise unremarkable at this time. Based on exam and clinical finding, the patient is stable for discharge. Plan of care was discussed with patient. Patient verbalizes understanding and agrees to plan of care. This note was generated using [employer] software. It may contain errors in wording, punctuation, or spelling. Liam Gonzales APRN.INTEL RECRUITER documented in this encounter [facility] 09-09-2022 Instructions Liam Wilkins MD - 09/09/2022 10:10 AM EDT Please get labs done on or after 02/23/2023 prior to your next visit. documented in this encounter [facility] 09-09-2022 History of Present illness Narrative Chief Complaint Patient presents with: Physical HPI Montserrat Aguayo is a 72 year old female who presents here today for Physical. Patient with hx of Hypothyroidism, elevated A1c, GERD, hyperlipidemia, RSD, Vit D def, mild persistent asthma, Hx of breast cancer on the right side, obisity as well as those reviewed and addressed below. Patient has been doing ok. Diet has not been as good as of late but plans on changing this. Has been under increased stress due to sons mental health issues. 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 Past medical history, appointments, medications, allergies reviewed. Previous Medical History PAST MEDICAL HISTORY Diagnosis Date Acquired hypothyroidism 11/29/2005 Bilateral carotid artery stenosis 07/13/2021 US: 06/2021: Stephen 20-40% 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, right (HCC) 10/05/2017 Cataracts, bilateral 12/20/2016 Some relation to steroids with her asthma. 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 Internal hemorrhoids without mention of complication Irritable bowel syndrome with both constipation and diarrhea 07/28/[address] 01/04/2022 DPA: Deshawn () Mass of left lower leg 07/03/2018 Benign w/u Metabolic syndrome 04/19/2016 Mild persistent asthma 09/07/2011 Mitral valve disorders(424.0) Mixed hyperlipidemia 11/29/2005 Neural foraminal stenosis of cervical spine 03/21/2022 Mod-sever on the left Neutropenia, drug-induced (HCC) 08/11/2011 Obesity Plantar fasciitis 11/24/2013 Primary insomnia 07/06/2021 Right-sided chest wall pain 10/05/2017 Secondary to breast cancer radiation. RSD (reflex sympathetic dystrophy) Sebaceous cyst 01/20/2014 Spinal stenosis, unspecified region other than cervical 03/02/2006 Trigger ring finger of right hand 06/23/2014 Vitamin D deficiency 09/15/2019 Previous Surgical History PAST SURGICAL HISTORY Procedure Laterality Date ADENOIDECTOMY PRIMARY <AGE 14 Adenoidectomy BREAST BIOPSY CORE 04/11/2011 right breast 2:00, 4:00 and 10:00 BREAST BIOPSY INCISIONAL 14 years ago right and left breast- benign BREAST RECONSTRUC W FREE FLAP 12/13/2012 bilateral breast BREAST RECONSTRUC W TISS EXPANDR 05/25/2011 right breast with elevation of the serratus flap CARDIAC CATH 03/20/2017 normal, by Dr. Colvin COLONOSCOPY FLX DX W/COLLJ SPEC WHEN PFRMD 04/08/2007 COLONOSCOPY FLX DX W/COLLJ SPEC WHEN PFRMD N/A 09/06/2016 MAC COLONOSCOPY FLX DX W/COLLJ SPEC WHEN PFRMD 02/10/2019 Colonoscopy INSJ TUNNELED CTR VAD W/SUBQ PORT AGE 5 YR/> 07/06/2011 left IJ MASTECTOMY, SIMPLE, COMPLETE 05/25/2011 right breast skin-sparing with SLND/level 1 LND MASTECTOMY, SIMPLE, COMPLETE 12/13/2012 prophylactic left breast PAST SURGICAL HISTORY OF squamous cell skin ca nose, lips, face PAST SURGICAL HISTORY OF 1972 removal of sweat glands (bilateral axilla (right x 2)and groin) PAST SURGICAL HISTORY OF 03/06/2016 removal of polyp at [facility] [employer] COVID-19 VACCINE, AGE 12+ YR (PURPLE TOP) 09/11/2020 first vaccine REM LESION TRUNK,ARM, LEG <0.5 CM 01/24/2014 Exc. 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 01/18/2012 Removal left IJ port RPR COMPLEX RETINA DETACH VITRECT &MEMBRANE PEEL 09/2014 left retina SIGMOIDOSCOPY FLX DX W/COLLJ SPEC BR/WA IF PFRMD 01/27/2002 Sigmoidoscopy TONSILLECTOMY PRIMARY/SECONDARY <AGE 14 Tonsillectomy Family History FAMILY HISTORY Problem Relation Age of Onset Breast Cancer Mother dx in her 50's other (uterine cancer) Mother dx before breast cancer Heart Father [place] Headache Sister other (other cances) Sister no known family h/o: ovarian; prostate, colon, pancreatic, lung, thyroid, brain, melenoma, leukemia, sarcomas other (rectal cancer) Paternal Grandmother 95 Breast Cancer Maternal Aunt 1) details unknown Breast Cancer Maternal Aunt 2) details unknown Patient Allergies ALLERGIES Allergen Reactions Typhoid Vaccine Intolerance Adhesive Tape (Haley* Other: See Comments after 2 days area becomes red and itches Cats Intolerance Diclofenac Other: See Comments elevated liver enz Dogs Intolerance Dust Intolerance Environmental [Othe* Other: See Comments sneezing Meloxicam Other: See Comments Swollen eyelids Mold Intolerance Tegretol [Carbamaze* Intolerance blood problem Current Medications Current Outpatient Medications on File Prior to Visit Medication Sig amitriptyline (ELAVIL) 25 mg tablet Take 2 tablets by mouth daily at bedtime. atorvastatin (LIPITOR) 40 mg tablet Take 1 tablet by mouth once daily. levothyroxine (SYNTHROID) 100 mcg tablet Take 1 tablet by mouth daily before breakfast. acetaminophen (TYLENOL) 500 mg tablet Take 1,000 mg by mouth at bedtime as needed. ergocalciferol 50,000 unit capsule (VITAMIN D2, DRISDOL) Take 1 capsule by mouth one time a week. (Patient taking differently: Take 50,000 Units by mouth. Every other week) sertraline (ZOLOFT) 50 mg tablet 1/2 a tablet by mouth once a day for 10 days then go to one tablet daily pioglitazone (ACTOS) 15 mg tablet Take 1 tablet by mouth once daily. VENTOLIN HFA 90 mcg/actuation inhaler Inhale 2 Puffs as instructed every 4 hours as needed for wheezing/shortness of breath. albuterol (PROVENTIL) 2.5 mg /3 mL (0.083 %) nebulizer solution inhale 3 milliliters in nebulizer every 4 hours if needed for wheezing /SHORTNESS OF BREATH. USE OVER 5 -15 MINUTES clobetasol (TEMOVATE) 0.05 % ointment Apply 1 application to affected area twice daily. TO AFFECTED AREA for 2 weeks. fluticasone-salmeterol (ADVAIR, WIXELA) 250-50 mcg/dose inhaler Inhale 1 Puff as instructed twice daily. aspirin, enteric coated (ASPIRIN, ENTERIC COATED) 81 mg EC tablet Take 1 tablet by mouth once daily. (Patient not taking: Reported on 09/09/2022) COMPOUNDED PRESCRIPTION NEBULIZER and supplies FOR HOME USE. DX: J45.30, J45.90. Length of need is life. This is a medically necessary devise for management of patients lung disease. Current machine recently stopped working. While trying to use it started to smoke and stopped. No current facility-administered medications on file prior to visit. Social History Social History Tobacco Use Smoking status: Former Packs/day: 2.00 Years: 12.00 Pack years: 24.00 Types: Cigarettes Quit date: 06/25/1981 Years since quittin.2 Smokeless tobacco: Never Vaping Use Vaping Use: Never used Substance Use Topics Alcohol use: Yes Comment: wine with meals Drug use: No Review of Symptoms REVIEW OF SYSTEMS GENERAL: No weight loss, malaise or fevers HEENT: Negative for frequent or significant headaches, No changes in hearing or vision, no nose bleeds or other nasal problems NECK: patient has noticed lumps on the both sides of her neck. They seem slightly larger over the past 6 months and have been tender. She has noticed increased allergy issues during this time as well. RESPIRATORY: Negative for hemoptysis, wheezing, COPD, dyspnea or shortness of breath. Has been bringing up mucus with her allergies. CARDIOVASCULAR: Negative for chest pain, leg swelling, hypertension, CHF or palpitations GI: No nausea, vomiting, or diarrhea and No heartburn or reflux symptoms. No blood : No history of dysuria, blood MUSCULOSKELETAL: still dealing with the neck pain. SKIN: Negative for lesions, rash, and itching PSYCH: See HPI HEMATOLOGY/LYMPHOLOGY: Negative for prolonged bleeding, bruising easily or swollen nodes ENDOCRINE: Negative for cold or heat intolerance, polyuria, polydipsia and goiter NEURO: No history of headaches, syncope, paralysis, seizures or tremors EXAM: BP 138/82 (BP Site: Left Arm, BP Position: Sitting, BP Cuff Size: Large Adult) Pulse 70 Resp 16 Ht 170.8 cm (5' 7.25) Wt 99.8 kg (220 lb) LMP 01/06/2009 BMI 34.20 kg/m Last 5 Encounter Wt Readings: Date: Wt: 09/09/2022 99.8 kg (220 lb) 08/16/2022 101.5 kg (223 lb 12.8 oz) 05/24/2022 97.1 kg (214 lb) 03/21/2022 0 kg () 03/03/2022 97.1 kg (214 lb) General Appearance: Well appearing, alert, in no acute distress, well-hydrated, well nourished.. Skin: Skin color, texture, turgor normal, no suspicious rashes or lesions. Head: Normocephalic, no masses, lesions, tenderness or abnormalities. Eyes: Anicteric sclera. Pupils are equally round and reactive to light. Extraocular movements are intact. . Ears: External ears normal, canals clear. Neck: Supple, no adenopathy; thyroid symmetric, normal size, no bruits. There is a small tender palpable mass on the right side of neck in the lateral area of the larynx. Lungs: Lungs clear to auscultation. No wheezing, rhonchi, rales.. Heart: RRR without murmur, gallop, or rubs. No ectopy. Abdomen: Normal abdominal exam, Abdomen soft, non-tender. Bowel sounds normal. No masses, organomegaly. Extremities: No deformities, edema, skin discoloration, clubbing or cyanosis. Good capillary refill. . Musculoskeletal: Spine range of motion normal. Muscular strength intact, No joint swelling, deformity, or tenderness. Peripheral Pulses: Normal. Neurologic: Gait normal. Reflexes normal and symmetric. Sensation to light touch and crainal nerves 2-12 intact.. Health Maintenance List ADVANCE DIRECTIVE DISCUSSION due on 06/25/2022 DEPRESSION ASSESSMENT Never done ANNUAL PCP TEAM CHRONIC DISEASE VISIT due on 03/03/2023 COLORECTAL CANCER SCREENING due on 02/11/2024 DIABETES SCREEN due on 08/29/2025 LIPID SCREEN due on 08/30/2027 DTAP,TDAP,TD(4 - Td or Tdap) due on 06/10/2030 BONE DENSITY Completed INFLUENZA Completed HEPATITIS C SCREENING Completed SHINGRIX VACCINE Completed COVID-19 VACCINE Completed PNEUMOCOCCAL: 65+ Completed MAMMOGRAM Discontinued SPIROMETRY Discontinued Data reviewed Component Latest Ref Rng & Units 07/04/2021 12/30/2021 08/29/2022 WBC 3.70 - 11.00 k/uL 5.46 5.29 RBC 3.90 - 5.20 m/uL 4.81 4.61 Hemoglobin 11.5 - 15.5 g/dL 14.1 13.5 Hematocrit 36.0 - 46.0 % 44.8 41.7 MCV 80.0 - 100.0 fL 93.1 90.5 MCH 26.0 - 34.0 pg 29.3 29.3 MCHC 30.5 - 36.0 g/dL 31.5 32.4 RDW-CV 11.5 - 15.0 % 12.8 13.0 Platelet Count 150 - 400 k/uL 298 254 MPV 9.0 - 12.7 fL 10.1 10.1 Neut% % 53.0 67.4 Abs Neut (ANC) 1.45 - 7.50 k/uL 2.87 3.57 Lymph% % 34.8 18.9 Abs Lymph 1.00 - 4.00 k/uL 1.90 1.00 Mcdowell% % 6.4 7.6 Abs Mcdowell <0.87 k/uL 0.35 0.40 Eosin% % 4.9 4.9 Abs Eosin <0.46 k/uL 0.27 0.26 Baso% % 0.9 0.6 Abs Baso <0.11 k/uL 0.05 0.03 Immature Gran % % 0.6 IMMATURE GRANS (ABS) <0.10 k/uL 0.03 NRBC /100 WBC 0.0 Absolute nRBC <0.01 k/uL <0.01 <0.01 DTYPE Auto Nucleated Reds 0 /100 WBC 0.0 Diff Type Auto Diff Protein, Total 6.3 - 8.0 g/dL 6.9 7.1 Albumin 3.9 - 4.9 g/dL 4.6 4.3 Calcium 8.5 - 10.2 mg/dL 9.7 9.5 Bilirubin, Total 0.2 - 1.3 mg/dL 0.4 0.5 Alkaline Phosphatase 34 - 123 U/L 102 86 AST 13 - 35 U/L 26 26 Glucose 74 - 99 mg/dL 100 (H) 117 (H) BUN 7 - 21 mg/dL 8 8 Creatinine 0.58 - 0.96 mg/dL 0.83 0.76 Sodium 136 - 144 mmol/L 143 138 Potassium 3.7 - 5.1 mmol/L 4.6 4.1 Chloride 97 - 105 mmol/L 104 104 CO2 22 - 30 mmol/L 25 25 Anion Gap 9 - 18 mmol/L 14 9 ALT 7 - 38 U/L 21 24 eGFR- >60 eGFR-All Other Races . >60 eGFR >=60 mL/min/1.73m 84 Color Yellow Yellow Clarity Clear Clear Glucose, Urine Trace, Negative Negative Bilirubin, Urine Negative Negative Ketones, Urine Trace, Negative Negative Specific [place], Ur 1.005 - 1.030 1.019 Hemoglobin/Blood,Ur Negative, Trace Negative pH, Urine 5.0 - 8.0 6.0 Protein, Urine Trace, Negative Trace Urobilinogen Negative Negative Nitrites Negative Negative Leukest Negative, 25 Aaliyah/uL 500 Aaliyah/uL (A) WBC, Urine 0-5 /HPF 6-10 /HPF (A) RBC, Urine 0-3 /HPF 0-3 /HPF Epithelial Cells /HPF Few Non-Squamous Epithelial Cells None Seen /HPF Few (A) Total Cholesterol, Nonfasting <200 mg/dL 176 204 (H) 207 (H) Triglycerides, Nonfasting <150 mg/dL 94 148 100 HDL Cholesterol, Nonfasting >39 mg/dL 63 63 78 LDL Cholesterol, Nonfasting <100 mg/dL 94 111 (H) 109 (H) Non HDL Cholesterol, Nonfasting <130 mg/dL 113 141 (H) 129 VLDL Cholesterol, Nonfasting <30 mg/dL 19 30 (H) 20 Total Chol/HDL Ratio, Nonfasting <5.10 mg/dL 2.79 3.24 2.65 LDL/HDL Ratio, Nonfasting <2.54 mg/dL 1.49 1.76 1.40 Hemoglobin A1C 4.3 - 5.6 % 5.9 (H) 5.9 (H) 5.7 (H) Estimated Average Glucose mg/dL 123 123 117 Vitamin D 25 Hydroxy 31.0 - 80.0 ng/mL 80.7 (H) 64.5 74.5 TSH 0.270 - 4.200 mIU/L 2.580 0.665 1.230 A/P ASSESSMENT/PLAN: 1. Well adult exam - ICD9: V70.0, ICD10: Z00.00 (primary diagnosis) - Counseled on healthy diet and regular exercise - Calcium intake with supplements or by diet of 1000 mg/day for under 50, 7363-6331 mg/day for 50+ - Follow up for annual exam in one year 2. Acquired hypothyroidism - ICD9: 244.9, ICD10: E03.9 - Instructed patient on importance of taking on an empty stomach either first thing in the morning or at bedtime. - continue current dose of Synthroid 3. Mixed hyperlipidemia - ICD9: 272.2, ICD10: E78.2 - good control - Encouraged following a low fat, low cholesterol diet. - Discussed the benefits of regular aerobic exercise and weight loss. - Encouraged following a low carbohydrate, healthy oil intake diet. - Continue current therapy. 4. Mild persistent asthma without complication - ICD9: 493.90, ICD10: J45.30 Mild persistent Asthma stable - Continue current meds - Avoidance of triggers recommended 5. Gastroesophageal reflux disease without esophagitis - ICD9: 530.81, ICD10: K21.9 - managed per diet. 6. Elevated hemoglobin A1c - ICD9: 790.29, ICD10: R73.09 - improved control with life style changes. 7. Bilateral carotid artery stenosis - ICD9: 433.10, 433.30, ICD10: I65.23 - cont current Tx and monitor. 8. RSD (reflex sympathetic dystrophy) - ICD9: 337.20, ICD10: G90.50 - clinically stable 9. Neutropenia, drug-induced (HCC) - ICD9: 288.03, E980.5, ICD10: D70.2 - recent labs ok. 10. 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, right (HCC) - ICD9: 174.9, ICD10: C50.911 - cont management with oncology. 11. Class 1 obesity due to excess calories without serious comorbidity with body mass index (BMI) of 33.0 to 33.9 in adult - ICD9: 278.00, V85.33, ICD10: E66.09, Z68.33 Weight decreasing - Behavioral intervention 12. Vitamin D deficiency - ICD9: 268.9, ICD10: E55.9 - cont replacement 13. Mass of soft tissue of neck - ICD9: 729.99, ICD10: M79.89 Check - CT NECK SOFT TISSUE W IVCON 14. Advance directive discussed with patient - ICD9: V65.49, ICD10: Z71.89 - up to date. Requested Prescriptions Signed Prescriptions Disp Refills sertraline (ZOLOFT) 100 mg tablet 90 tablet 1 Sig: Take one tablet by mouth once a day. pioglitazone (ACTOS) 15 mg tablet 90 tablet 1 Sig: Take 1 tablet by mouth once daily. iv contrast (will be provided with radiology test) 1 Each 0 Sig: Inject 1 Each intravenously one time only for [address] Neck W IVCON No IV access, insert saline lock prior to the sedation, infusion, injection for imaging exam. Discontinue saline lock post exam. If Pt. has a central line or IVAD, may access for administration according to line specific nursing protocol. Once exam is complete flush line and de-access according to line specific nursing protocol in the CT contrast administration guidelines link. F/u 6 months routine check A1c, TSH, Vit D and Lipid Liam Wilkins MD documented in this encounter [facility] 09-04-2022 Miscellaneous Notes Last OV: 03/03/22 - Next scheduled appt: 09/09/22 Component Latest Ref Rng & Units 08/29/2022 TSH 0.270 - 4.200 mIU/L 1.230 Patient has been identified by name and date of : Yes Requested Prescriptions Pending Prescriptions Disp Refills amitriptyline (ELAVIL) 25 mg tablet 180 tablet 1 Sig: Take 2 tablets by mouth daily at bedtime. atorvastatin (LIPITOR) 40 mg tablet 90 tablet 1 Sig: Take 1 tablet by mouth once daily. levothyroxine (SYNTHROID) 100 mcg tablet 90 tablet 1 Sig: Take 1 tablet by mouth daily before breakfast. RX INSTRUCTIONS: Patient aware RX will be sent to pharmacy. No need to notify patient. Lina Pleitez LPN documented in this encounter [facility] 09-04-2022 Miscellaneous Notes Patient notified and voiced understanding. She is currently not having any UTI sx. Namrata Clifford MA Left message to call office. 09/01/2022 12:20 PM. Jayda Gaona LPN Left message for patient to contact office. Namrata Clifford MA Labs will be discussed during upcoming visit with dr. Wilkins. However, any s/s of UTI. If yes, I will tx. if no, she is to monitor. documented in this encounter [facility] 08-29-2022 Miscellaneous Notes Patient came in to complete lab work but . Please pend and will let front office representative know when ordered Laura Garzon Ma documented in this encounter [facility] 08-16-2022 Instructions Leslie Brewster PA-C - 08/16/2022 9:12 AM EST 1. Imaging/Diagnostic Tests: None 2. Physical Therapy: Continue with physical therapy 3. Medication: Continue with Tylenol Patient states unable to take NSAIDS 4. Referrals: back to PM 5. Considerations: none 6. Follow up: PRN documented in this encounter [facility] 08-16-2022 History of Present illness Narrative Spine Care Path Neck Pain - Chronic (> 12 weeks) Initial Exam SUBJECTIVE HISTORY OF PRESENT ILLNESS: Montserrat Aguayo is a 72 year old female who presents with a chief complaint of neck pain and is seen in consultation requested by Dr. Liam Wilkins for an opinion regarding chronic neck pain. My final recommendations will be communicated back to the requesting physician by way of shared medical record or letter via US mail. Patient presents with chronic neck pain and bilateral shoulder pain X 1 year Denies accident/injury Pain localized to neck and bilateral shoulder pain Pain described as achy, stiffness Radiation: neck to based of skull Neck to the shoulders bilaterally Denies symptoms in arms Numbness/Tingling: none Denies bowel or bladder incontinence, denies saddle anesthesia Denies instability with gait or balance concerns Right handed Denies difficulty with fine motor skills Pain rated 2/10 100% neck pain, Pain worse with movement of cervical spine, Pain improved with rest Denies ice or heat Medications: Tylenol 1000 mg at night, Elavil 50 mg QHS Unable to take NSAIDS secondary to history of Breast Cancer 11/10/2021 - 05/2022 - Physical therapy x 17 sessions Denies chiropractor manipulation, acupuncture, or massage Treating Providers: Dr. 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 Activity: Walks mile a day, strength training 3x/week ACTIVE PROBLEM LIST Acquired Hypothyroidism Mixed Hyperlipidemia Spinal stenosis, unspecified region other than cervical Rsd (Reflex Sympathetic Dystrophy) Mitral valve disorders(424.0) Neck Pain Neutropenia, drug-induced (HCC) Mild Persistent Asthma Plantar Fasciitis Sebaceous Cyst Ganglion and Cyst of Synovium, Tendon and Bursa Trigger Ring Finger of Right Hand Fatty Liver Metabolic Syndrome Gastroesophageal Reflux Disease Without Esophagitis Diverticulosis of Large Intestine Internal Hemorrhoids Without Mention of Complication History of Detached Retina Repair Cataracts, Bilateral Well Adult Exam Elevated Hemoglobin A1c Carcinoma of Female Breast, Right (Hcc) Right-Sided Chest Wall Pain Class 1 Obesity Due to Excess Calories Without Serious Comorbidity With Body Mass Index (Bmi) of 33.0 to 33.9 in Adult Mass of Left Lower Leg Ex-Smoker History of Skin Cancer History of Colonic Polyps Vitamin D Deficiency Irritable Bowel Syndrome With Both Constipation and Diarrhea Bilateral Carotid Artery Stenosis Dizziness Living Will in Place Advance Directive Discussed With Patient Medication Management Neural Foraminal Stenosis of Cervical Spine PAST MEDICAL HISTORY Diagnosis Date Acquired hypothyroidism 11/29/2005 Bilateral carotid artery stenosis 07/13/2021 [place]: 06/2021: Stephen 20-40% 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, right (HCC) 10/05/2017 Cataracts, bilateral 12/20/2016 Some relation to steroids with her asthma. 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 Internal hemorrhoids without mention of complication Irritable bowel syndrome with both constipation and diarrhea 07/28/[address] 01/04/2022 DPA: Deshawn () Mass of left lower leg 07/03/2018 Benign w/u Metabolic syndrome 04/19/2016 Mild persistent asthma 09/07/2011 Mitral valve disorders(424.0) Mixed hyperlipidemia 11/29/2005 Neural foraminal stenosis of cervical spine 03/21/2022 Mod-sever on the left Neutropenia, drug-induced (HCC) 08/11/2011 Obesity Plantar fasciitis 11/24/2013 Primary insomnia 07/06/2021 Right-sided chest wall pain 10/05/2017 Secondary to breast cancer radiation. RSD (reflex sympathetic dystrophy) Sebaceous cyst 01/20/2014 Spinal stenosis, unspecified region other than cervical 03/02/2006 Trigger ring finger of right hand 06/23/2014 Vitamin D deficiency 09/15/2019 PAST SURGICAL HISTORY Procedure Laterality Date ADENOIDECTOMY PRIMARY <AGE 12 Adenoidectomy BREAST BIOPSY CORE 04/11/2011 right breast 2:00, 4:00 and 10:00 BREAST BIOPSY INCISIONAL 14 years ago right and left breast- benign BREAST RECONSTRUC W FREE FLAP 12/13/2012 bilateral breast BREAST RECONSTRUC W TISS EXPANDR 05/25/2011 right breast with elevation of the serratus flap CARDIAC CATH 03/20/2017 normal, by Dr. Colvin COLONOSCOPY FLX DX W/COLLJ SPEC WHEN PFRMD 04/08/2007 COLONOSCOPY FLX DX W/COLLJ SPEC WHEN PFRMD N/A 09/06/2016 MAC COLONOSCOPY FLX DX W/COLLJ SPEC WHEN PFRMD 02/10/2019 Colonoscopy INSJ TUNNELED CTR VAD W/SUBQ PORT AGE 5 YR/> 07/06/2011 left IJ MASTECTOMY, SIMPLE, COMPLETE 05/25/2011 right breast skin-sparing with SLND/level 1 LND MASTECTOMY, SIMPLE, COMPLETE 12/13/2012 prophylactic left breast PAST SURGICAL HISTORY OF squamous cell skin ca nose, lips, face PAST SURGICAL HISTORY OF 1972 removal of sweat glands (bilateral axilla (right x 2)and groin) PAST SURGICAL HISTORY OF 03/06/2016 removal of polyp at [facility] COVID-19 VACCINE, AGE 12+ YR (PURPLE TOP) 09/11/2020 first vaccine REM LESION TRUNK,ARM, LEG <0.5 CM 01/24/2014 Exc. 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 01/18/2012 Removal left IJ port RPR COMPLEX RETINA DETACH VITRECT &MEMBRANE PEEL 09/2014 left retina SIGMOIDOSCOPY FLX DX W/COLLJ SPEC BR/WA IF PFRMD 01/27/2002 Sigmoidoscopy TONSILLECTOMY PRIMARY/SECONDARY <AGE 12 Tonsillectomy Social History Tobacco Use Smoking status: Former Packs/day: 2.00 Years: 12.00 Pack years: 24.00 Types: Cigarettes Quit date: 06/25/1981 Years since quittin.1 Smokeless tobacco: Never Vaping Use Vaping Use: Never used Substance Use Topics Alcohol use: Yes Comment: wine with meals Drug use: No FAMILY HISTORY Problem Relation Age of Onset Breast Cancer Mother dx in her 50's other (uterine cancer) Mother dx before breast cancer Heart Father [place] Headache Sister other (other cances) Sister no known family h/o: ovarian; prostate, colon, pancreatic, lung, thyroid, brain, melenoma, leukemia, sarcomas other (rectal cancer) Paternal Grandmother 95 Breast Cancer Maternal Aunt 1) details unknown Breast Cancer Maternal Aunt 2) details unknown ALLERGIES Allergen Reactions Typhoid Vaccine Intolerance Adhesive Tape (Haley* Other: See Comments after 2 days area becomes red and itches Cats Intolerance Diclofenac Other: See Comments elevated liver enz Dogs Intolerance Dust Intolerance Environmental [Othe* Other: See Comments sneezing Meloxicam Other: See Comments Swollen eyelids Mold Intolerance Tegretol [Carbamaze* Intolerance blood problem CURRENT MEDICATIONS: acetaminophen (TYLENOL) 500 mg tablet Take 1,000 mg by mouth at bedtime as needed. ergocalciferol 50,000 unit capsule (VITAMIN D2, DRISDOL) Take 1 capsule by mouth one time a week. sertraline (ZOLOFT) 50 mg tablet 1/2 a tablet by mouth once a day for 10 days then go to one tablet daily pioglitazone (ACTOS) 15 mg tablet Take 1 tablet by mouth once daily. amitriptyline (ELAVIL) 25 mg tablet Take 2 tablets by mouth daily at bedtime. atorvastatin (LIPITOR) 40 mg tablet Take 1 tablet by mouth once daily. levothyroxine (SYNTHROID) 100 mcg tablet Take 1 tablet by mouth daily before breakfast. VENTOLIN HFA 90 mcg/actuation inhaler Inhale 2 Puffs as instructed every 4 hours as needed for wheezing/shortness of breath. albuterol (PROVENTIL) 2.5 mg /3 mL (0.083 %) nebulizer solution inhale 3 milliliters in nebulizer every 4 hours if needed for wheezing /SHORTNESS OF BREATH. USE OVER 5 -15 MINUTES aspirin, enteric coated (ASPIRIN, ENTERIC COATED) 81 mg EC tablet Take 1 tablet by mouth once daily. clobetasol (TEMOVATE) 0.05 % ointment Apply 1 application to affected area twice daily. TO AFFECTED AREA for 2 weeks. COMPOUNDED PRESCRIPTION NEBULIZER and supplies FOR HOME USE. DX: J45.30, J45.90. Length of need is life. This is a medically necessary devise for management of patients lung disease. Current machine recently stopped working. While trying to use it started to smoke and stopped. fluticasone-salmeterol (ADVAIR, WIXELA) 250-50 mcg/dose inhaler Inhale 1 Puff as instructed twice daily. REVIEW OF SYSTEMS: PAIN ASSESSMENT: See HPI. GENERAL: Denies fever, chills malaise and weight loss. HEENT: No recent change in vision or hearing. CARDIOVASCULAR: Bilateral Carotid Artery stenonis RESPIRATORY: Smoked 10 years 2 ppd. GI: Denies GI ulcers, inflammatory disease, or liver disease. : Denies change in frequency or urgency, kidney disease, and burning with urination. MUSCULOSKELETAL: Neck pain SKIN: Denies rash or itching. PSYCHOLOGICAL: Anxiety NEURO: Denies CVA, seizures, headaches. ENDOCRINE: Hypothyroid HEMATOLOGY/LYMPHOLOGY: Breast Cancer 2012 - Bilateral mastectomy with chemo and radiation - currently in remission ALLERGIC/IMMUNOLOGICAL: Denies risks for infection, or recent MRSA infections. OBJECTIVE: PHYSICAL EXAM BP 146/72 Pulse 85 Resp 18 Ht 172.7 cm (5' 8) Wt 101.5 kg (223 lb 12.8 oz) LMP 01/06/2009 BMI 34.03 kg/m GENERAL APPEARANCE: Well appearing, well-hydrated, well nourished and alert SKIN: Head, neck, trunk, and extremities dry, intact and without lesions NEURO/PSYCH: oriented to time, place, and person, speech normal, mental status intact GAIT: normal, toe walking normal, heel walking normal, able to tandem gait POSTURE: Posture and spinal curves are normal PALPATION: no palpable masses, tenderness, or spasm, no palpable subluxation or step-off, no point tenderness over the spine MUSCULOSKELETAL: @[id number]@ Cervical Range of Motion Flexion Normal Extension Normal RIGHT LEFT Rotation Full ROM without pain Full ROM without pain Lateral Bend Full ROM without pain Full ROM without pain Upper Body Reflex Exam RIGHT LEFT Reflex Status Reflex Status Biceps 2+ Normal 2+ Normal Triceps 2+ Normal 2+ Normal Brachioradialis 2+ Normal 2+ Normal Inverted Radial 2+ Normal 2+ Normal Richardson's Sign absent absent Upper Extremity Strength RIGHT LEFT Strength (MMT) Strength (MMT) Shoulder Abduction 5/5 5/5 Biceps 5/5 5/5 Triceps 5/5 5/5 Resisted Suppination 5/5 5/5 Wrist Extension 5/5 5/5 Interossei 5/5 5/5 Shoulder Range of Motion RIGHT LEFT Flexion Normal Normal Extension Normal Normal Abduction Normal Normal Adduction Normal Normal Internal Rotation Normal Normal External Rotation Normal Normal Shoulder Tests N/A NEUROSENSORY: Differentiation of sharp and light touch; Within Normal Limits Neuro Tests: None Data Review: [facility] records independently reviewed Images independently reviewed with the patient 03/21/2022 - MRI of cervical spine: Cervical degenerative disease with no more than mild canal stenosis. Severe multilevel neural foraminal narrowing ASSESSMENT/PLAN Degenerative disc disease, cervical (primary encounter diagnosis) Osseous and subluxation stenosis of intervertebral foramina of cervical region Muscle spasms of neck 1. Imaging/Diagnostic Tests: None 2. Physical Therapy: Continue with physical therapy 3. Medication: Continue with Tylenol Patient states unable to take NSAIDS secondary to history of breast cancer 4. Referrals: back to PM 5. Considerations: none 6. Follow up: PRN The patient agrees with the recommendations and plan listed above and has no further questions at this time. Medical Decision Making: Problems: Low: Stable chronic illness Data: Unique test result(s) reviewed: 1 Independent interpretation of test from other physician/QHCP Risk: Moderate: Drug management and Moderate risk from testing/treatment Medical Decision Making Level: 4 - Moderate SIGNATURE: Leslie Brewster PA-C PATIENT NAME: Montserrat Aguayo DATE: August 16, 2022 TIME: 8:47 AM documented in this encounter [facility] 07-24-2022 Miscellaneous Notes Summary: Consult to Spine [facility] 1st Attempt: Called PT to schedule consult to spine [facility], LVM for PT to call back and ask for a laborer tin can. Thanks, Shelley Faria, PSS Consult to see spine med. Please help with appt. Pt calls to report she would like to go to a medical logistics specialist for neck issues. Pt reports she has tried PT and Pain Management and feels it would be better to talk to a specialist . Pt reports Dr. Barnett was supposed to do a procedure to help and did a different procedure that did not help with pain. Pt reports it is very hard to contact Dr. Barnett's office and the wrong procedure was billed. Pt also reports that she feels PT did not help and might have made things worse. Pt reports she wants to see someone who specializes in the neck who can actually tell her what would help with the type of pain she is having. Pt was scheduled for physical with pcp this week but had to cancel for mandatory meeting at work. Pt is rescheduled for August. Please review and advise. Lina Pleitez LPN documented in this encounter [facility] 06-23-2022 Miscellaneous Notes ----- Message from Delaney Rivera sent at 06/22/2022 4:42 PM EST ----- Regarding: Spine/Tony Barnett)/Appointment Request Subject Line Format: Medicine / [Provider Name] / [Issue] Patient has been identified by name and Date of (Y/N): Y Patient: Montserrat Aguayo Date of : 1950 Provider for this encounter: Ramiro Barnett MD Reason for the call/escalation: Patient called to schedule Provider Phone Call to follow up after 07/20/22 injection appointment. Patient would like to be contacted. Was Patient Referred to 1/Seek Emergency Treatment (Y/N): N Did Patient Agree (Y/N): na Was An Attempt Made To Transfer The Patient To The Office (Y/N): N Were You Able To Reach Someone At The Office (Y/N): na If Yes - Patient Was Transferred To (Caregivers Name): na If No - Which [facility] Leadership Research [employer] Insights Executive Did You Speak With Regarding This Patient: na Was an appointment scheduled (Y/N): N Reason patient was requesting visit (RFV/signs and symptoms/diagnosis) : Appointment Request Person calling if other than patient: Patient Return call to if other than patient: na Best contact number: [phone] Thank you, Delaney Rivera June 22, 2022 4:42 PM documented in this encounter [facility] 06-22-2022 Miscellaneous Notes POPULATION HEALTH NAVIGATION OUTREACH Action/FYI LVM and [employer] message regarding Pain Management consult. Pt identified by name and : NO Outreach Outcome/Action Unable to reach patient: Left message [employer] message sent Did you use a PCP flex slot to schedule this appointment? No Reason for Outreach Care Gap or Scheduling/Wellness visits Payer: Payor: RUPERT / Plan: BLUE ACCESS PPO / Product Type: PPO / Care Gap Reviewed:: Specialty Scheduling Reminder: Reminder note to check Health Maintenance for items below Health Maintenance items due: DEPRESSION ASSESSMENT Never done Navigation Signature: Azeb Holder June 22, 2022 3:51 PM documented in this encounter [facility] 06-15-2022 History of Present illness Narrative Episode Visit Count: 17 Therapist That Will Accept/Oversee The Plan Of Care: Alex Mendenhall Start of Care Date: 11/10/21 Onset Date: 10/11/21 REHABILITATION AND SPORTS THERAPY PHYSICAL THERAPY TREATMENT NOTE ASSESSMENT: Montserrat Rod Aguayo tolerated the session with decreased symptoms and no issues. She demonstrated improvements in neck pain post session with added manual work to B levators. The patient will continue to benefit from ongoing skilled physical therapy to progress toward set goals. 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 Feels a more intense pulling sensation down into her shoulder blades now. Pain: Pain Pain Level: 5 Pain Location: Neck Description: Tightness;Sore;Aching Frequency: Continuous OBJECTIVE MEASURES WITH LEVEL OF FUNCTION: B levators recreate pain today TREATMENT: Manual Therapy: 1: STM to B Levators, SCM, upper traps, cervical paraspinals 2: Manual cervical traction x10 min total between 2 bouts Skilled Intervention: Manual skills to improve joint mobility, ROM, and decrease pain. Utilized anatomy knowledge of the therapist, and assessment of patient's response to intervention. Billing Manual TherapyTreatment Minutes: 39 Total Treatment Time Minutes (timed/untimed): 39 Alex Mendenhall PT documented in this encounter [facility] 06-05-2022 History of Present illness Narrative Episode Visit Count: 16 Therapist That Will Accept/Oversee The Plan Of Care: Alex Mendenhall Start of Care Date: 11/10/21 Onset Date: 10/11/21 REHABILITATION AND SPORTS THERAPY PHYSICAL THERAPY TREATMENT NOTE ASSESSMENT: Montserrat Aguayo tolerated the session with decreased symptoms. She demonstrated difficulty with neck pain and stiffness. The patient will continue to benefit from ongoing skilled physical therapy to progress toward set goals. PLAN FOR NEXT VISIT: If no change with needling, could try facet opening technique SUBJECTIVE: Patient Reason for Visit: Pt pretty painful today. Notes the right side of the neck is really bothering her. Both sides start in the crook of the neck and radiate up the neck and out to the shoulder Pain: Pain Pain Level: 6 Pain Location: Neck Description: Tightness;Sore Frequency: Continuous OBJECTIVE MEASURES WITH LEVEL OF FUNCTION: Trigger point in B upper traps noted TREATMENT: Manual Therapy: 1: STM to B SCM, upper traps, cervical paraspinals 2: Manual cervical traction x10 min total between 2 bouts Dry Needling: (1) 50mm needle to R upper trap with pistoning and fanning Skilled Intervention: Manual skills to improve joint mobility, ROM, and decrease pain. Utilized anatomy knowledge of the therapist, and assessment of patient's response to intervention. Billing Manual TherapyTreatment Minutes: 40 Total Treatment Time Minutes (timed/untimed): 40 Alex Mendenhall PT documented in this encounter [facility] 05-30-2022 History of Present illness Narrative Episode Visit Count: 15 Therapist That Will Accept/Oversee The Plan Of Care: Alex Mendenhall Start of Care Date: 11/10/21 Onset Date: 10/11/21 REHABILITATION AND SPORTS THERAPY PHYSICAL THERAPY PROGRESS REPORT PLAN OF CARE UPDATE: Assessment: Montserrat Aguayo demonstrates minimal improvement in working and sleeping. She hasprogressed toward goals. Patient continues to present with impairments in ADL's, range of motion, symptom management, and tissue tenderness that interfere with driving;working;sleeping turning. Current prognosis is Fair due to: clinical presentation;chronic nature of impairments;limited tolerance to activity;occupational demands . She will benefit from continued skilled therapy services to meet the updated goals for this plan of care as noted below. Goals updated on 05/30/2022. Goals for Episode of Care: created on 04/25/22 through 07/26/22 Independent in a Home Exercise Program. Currently met, continuing Patient will decrease pain rating by 2 points to meet minimal clinical important difference for numeric pain rating scale. Not met Restore pain free cervical ROM to WNL to allow for improved functional mobility and decreased pain. Not met Drive with no aggravation of pain/symptoms. Not met Sleep throughout the night without pain/symptoms. Not met Maintain proper sitting posture throughout the session to allow for decreased pain. Progressing towards. 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 May consider dry needling SUBJECTIVE: Patient Reason for Visit: Pt had the facet joint blocks. Notes no improvement in symptoms. She gets a day or two of relief following therapy, and then pain slowly returns. It is helping to maintain her current level of pain, as when she stopped therapy the pain severely worsened. Functional Limitations: driving;working;sleeping Functional Limitation Comments: turning Pain: Pain Pain Level: 5 Pain Location: Neck Description: Tightness;Sore;Aching Frequency: Continuous Post Treatment Pain Post Treatment Symptoms: Much better PROMIS Scales Higher is Better 12/04/2019 06/03/2020 11/10/2021 Phys Func - Score - - 48 (within normal limits) Phys Func - Percentile - - 42 % Social Roles - Score - - 59 (within normal limits) Social Role - Percentile - - 82 % GH Physical - Score 50.8 50.8 54.1 (Very Good) GH Physical - Percentile 53 % 53 % 66 % GH Mental - Score 59 59 50.8 (Very Good) GH Mental - Percentile 82 % 82 % 53 % Self-Eff Symptom - Score - - 56 (Average) Self-Eff Symptom - Percentile - - 73 % T-scores: mean of general population = 50. 5 points is clinically meaningfully difference Percentiles provide an indication of how the patient's score ranks in relation to the general population. Higher percentile rankings indicate better function/quality of life. 50th percentile is the average of the general population and indicates half of respondents had a worse score. Lower is Better 11/10/2021 Fatigue - Score 42 (within normal limits) Fatigue - Percentile 79 % T-scores: mean of general population = 50. 5 points is clinically meaningfully difference Percentiles provide an indication of how the patient's score ranks in relation to the general population. Higher percentile rankings indicate better function/quality of life. 50th percentile is the average of the general population and indicates half of respondents had a worse score. OBJECTIVE MEASURES WITH LEVEL OF FUNCTION: Spine Observations R Cervical Spine Palpation Tenderness: Upper trapezius;Paraspinals L Cervical Spine Palpation Tenderness: Upper trapezius;Paraspinals Cervical Spine ROM Cervical Flexion AROM: Normal Cervical Extension AROM: Minimal limitation Cervical Side-Bend Right AROM: Moderate limitation Cervical Side-Bend Left AROM: Moderate limitation Cervical Rotation Right AROM: Moderate limitation Cervical Rotation Left AROM: Moderate limitation TREATMENT: Manual Therapy: 1: STM to B SCM, upper traps, cervical paraspinals 2: Manual cervical traction x10 min Skilled Intervention: Manual skills to improve joint mobility, ROM, and decrease pain. Utilized anatomy knowledge of the therapist, and assessment of patient's response to intervention. [facility] Management: 1: Spent significant time discussing plan of care, answering pt questions about therapy, injections, and validity of imaging and other interventions Skilled Intervention: Skilled judgment in the selection of proper modification for activity of daily living/home management based on clinical presentation, deficits, and needs. Reviewed patient specific diagnosis in relation to activities of daily living/home management. Billing Therapeutic Exercise Treatment Minutes: 40 Self-Care/Home Management Treatment Minutes: 15 Total Treatment Time Minutes (timed/untimed): 55 Alex Mendenhall PT documented in this encounter [facility] 05-23-2022 Instructions Deandra Grande LPN - 05/23/2022 10:44 AM EST PROCEDURE DISCHARGE INSTRUCTIONS 05/23/2022 Montserrat Aguayo 1950 Physician: Ramiro Barnett MD Procedure: Facet Joint Injection/Medial Branch Block Post Procedure Instructions: If sedation not given, no driving for 3 hours after the procedure., Perform activities that typically make you have pain and monitor your pain level during these activities for the next 3-4 hours., Apply cold compresses to injection site if needed., If medically acceptable, take over the counter anti-inflammatories such as ibuprofen or Aleve if needed for post procedure discomfort., No hot baths, hot tubs or hot compresses for 24 hours., and Increased pain the day after the procedure may occur. If you have any of the following signs or symptoms, please call our office at Fever and/or chills Swelling and/or drainage from injection site New pain that is different than your normal pain (other than soreness at the site of the procedure) Stiff neck Shortness of breath Severe increase in pain Motor dysfunctions, such as difficulty walking, bowel or bladder dysfunction and/or incontinence Headache that is severe, light sensitive or develops when changing positions (positional headache) Nausea and/or vomiting accompanied by headache that started 24-48 hours after the procedure If you have any emergent concerns, please call 911 or go to your local emergency room. Please also contact our office to let us know you will be seeking emergency care and why. documented in this encounter [facility] 05-23-2022 Nurse Note Order has been placed in the patient's chart with the following parameters for discharge from the physician: Patient is alert and oriented Vitals: Diastolic/Systolic +/- 20mmHg Respirations: 12-18 Pulse: 60-100 SpO2 is greater than or equal to 90% Patient has no nausea or vomiting Patient has no dizziness Pain level is +/- 2 from initial evaluation Dressing, dry and intact with no evidence of bleeding Criteria has been met, patient is okay to be discharged per the physician. Physician has gone in and evaluated the patient. Dressing dry and intact. No drainage noted. The patient denies nausea, numbness, tingling, weakness, shortness of breath, dizziness, or headache. Pain level 3/10. Vital signs within normal limits. Patient denied needing walked out by clinical staff and denied needing a wheelchair. Patient given discharge instructions and sent to transportation via ambulatory method. Patient left in good condition. Procedure to be performed: Bilateral C4/5, C5/6 Cervical Medial Branch Block Patient was wheeled on stretcher from pre op bay to procedure room and assisted onto the procedure tablePatient s procedure was performed in an [facility] Procedure room. Pause completed at each level by provider to verify correct level and laterality placement Pressure was applied to patient s injection site(s) and bleeding was minimal. Patient had no complaint of shortness of breath, dizziness, headache, numbness, tingling, weakness or complications from procedure. Patient was assisted from the procedure table onto the stretcher and wheeled into a post op bay. Patient was advised a clinician will be to obtain another set of vitals. Time Out: 1014 Confirmed patient name, date of , procedure site, laterality, and allergies Procedure Start: 1017 Procedure End: 1028 Blocker And Cutter Contact Lens's Name: Apolinar Are you on a blood thinner: n If yes, is a hold required: n Last dose of blood thinner: n INR Result today: n Do you require a Lovenox bridge:n Are you a diabetic:n Are you/or could you be : n Are you taking Xanax for the procedure: n Are you currently on a steroid? n Are you currently on an antibiotic: n Have you had a COVID-19 vaccine in the last 14 days Or are you scheduled to receive one? n documented in this encounter [facility] 05-23-2022 History of Present illness Narrative Review of Systems Constitutional: Negative for activity change, chills, fever and unexpected weight change. Genitourinary: Negative for difficulty urinating. Musculoskeletal: Positive for arthralgias, neck pain and neck stiffness. Negative for back pain, gait problem, joint swelling and myalgias. Neurological: Negative for weakness, numbness and headaches. Psychiatric/Behavioral: Positive for dysphoric mood. Negative for sleep disturbance and suicidal ideas. The patient is not nervous/anxious. [facility] Patient name: Montserrat Aguayo Date of : 1950 Today's Date: 05/23/2022 Physician performing procedure: Ramiro Barnett M.D., M.B.A. Procedure: Facets Medial Branch (aka Facet Joint Nerve) Blocks under fluoroscopic guidance Levels Treated: Bilateral Cervical C4-C5 and C5-C6 Facet Joint Nerves, aka Medial Branch(es) Approach: Bilateral Oblique Injectate: A total of 3cc, consisting of 3cc of 0.5% Bupivacaine Improvement after today's procedure: as per nursing report Diagnosis: (M47.812) Cervical spondylosis without myelopathy (primary encounter diagnosis) Comments: None HPI: Montserrat Aguayo is an 72 year old FEMALE who presents today, in pain, for the procedure noted above. Data Reviewed: Current Medications, Past Medical History, Past Surgical History, Family History, Social History and Review of Systems: On Today's date, noted in the attribution, I have confirmed and edited as necessary, the PFSH and ROS obtained by others. Nursing note and vitals reviewed. Additional imaging reviewed as appropriate Review of Systems: Pertinent Positives: MSK: pain in the region being treated Neuro: no weakness or numbness in the region being treated Skin: Negative (No itching) Eyes: Negative (No blurred or double vision) Respiratory: Negative (No Cough, [id number], Dyspnea on exertion, wheezing) Cardiovascular: Negative (No Chest Pain, Tightness, Pressure, Palpitations) Gastrointestinal: Negative (No Abdominal pain, Nausea, Vomiting, Constipation, Diarrhea) Genitourinary: Negative (No dysuria) Hematologic: Negative (No bleeding, bruising) OB: is Denied or Not Applicable Endocrine: Negative (No hot/cold intolerance) Psychiatric: Negative (No depression, anxiety or suicidal ideation) PAST MEDICAL HISTORY Diagnosis Date Acquired hypothyroidism 11/29/2005 Bilateral carotid artery stenosis 07/13/2021 US: 06/2021: Stephen 20-40% 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, right (HCC) 10/05/2017 Cataracts, bilateral 12/20/2016 Some relation to steroids with her asthma. 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 Internal hemorrhoids without mention of complication Irritable bowel syndrome with both constipation and diarrhea 07/28/[address] 01/04/2022 DPA: Deshawn () Mass of left lower leg 07/03/2018 Benign w/u Metabolic syndrome 04/19/2016 Mild persistent asthma 09/07/2011 Mitral valve disorders(424.0) Mixed hyperlipidemia 11/29/2005 Neural foraminal stenosis of cervical spine 03/21/2022 Mod-sever on the left Neutropenia, drug-induced (HCC) 08/11/2011 Obesity Plantar fasciitis 11/24/2013 Primary insomnia 07/06/2021 Right-sided chest wall pain 10/05/2017 Secondary to breast cancer radiation. RSD (reflex sympathetic dystrophy) Sebaceous cyst 01/20/2014 Spinal stenosis, unspecified region other than cervical 03/02/2006 Trigger ring finger of right hand 06/23/2014 Vitamin D deficiency 09/15/2019 PAST SURGICAL HISTORY Procedure Laterality Date ADENOIDECTOMY PRIMARY <AGE 12 Adenoidectomy BREAST BIOPSY CORE 04/11/2011 right breast 2:00, 4:00 and 10:00 BREAST BIOPSY INCISIONAL 14 years ago right and left breast- benign BREAST RECONSTRUC W FREE FLAP 12/13/2012 bilateral breast BREAST RECONSTRUC W TISS EXPANDR 05/25/2011 right breast with elevation of the serratus flap CARDIAC CATH 03/20/2017 normal, by Dr. Colvin COLONOSCOPY FLX DX W/COLLJ SPEC WHEN PFRMD 04/08/2007 COLONOSCOPY FLX DX W/COLLJ SPEC WHEN PFRMD N/A 09/06/2016 MAC COLONOSCOPY FLX DX W/COLLJ SPEC WHEN PFRMD 02/10/2019 Colonoscopy INSJ TUNNELED CTR VAD W/SUBQ PORT AGE 5 YR/> 07/06/2011 left IJ MASTECTOMY, SIMPLE, COMPLETE 05/25/2011 right breast skin-sparing with SLND/level 1 LND MASTECTOMY, SIMPLE, COMPLETE 12/13/2012 prophylactic left breast PAST SURGICAL HISTORY OF squamous cell skin ca nose, lips, face PAST SURGICAL HISTORY OF 1972 removal of sweat glands (bilateral axilla (right x 2)and groin) PAST SURGICAL HISTORY OF 03/06/2016 removal of polyp at [facility] [employer] COVID-19 VACCINE, AGE 12+ YR (PURPLE TOP) 09/11/2020 first vaccine REM LESION TRUNK,ARM, LEG <0.5 CM 01/24/2014 Exc. 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 01/18/2012 Removal left IJ port RPR COMPLEX RETINA DETACH VITRECT &MEMBRANE PEEL 09/2014 left retina SIGMOIDOSCOPY FLX DX W/COLLJ SPEC BR/WA IF PFRMD 01/27/2002 Sigmoidoscopy TONSILLECTOMY PRIMARY/SECONDARY <AGE 12 Tonsillectomy FAMILY HISTORY Problem Relation Age of Onset Breast Cancer Mother dx in her 50's other (uterine cancer) Mother dx before breast cancer Heart Father [place] Headache Sister other (other cances) Sister no known family h/o: ovarian; prostate, colon, pancreatic, lung, thyroid, brain, melenoma, leukemia, sarcomas other (rectal cancer) Paternal Grandmother 95 Breast Cancer Maternal Aunt 1) details unknown Breast Cancer Maternal Aunt 2) details unknown Social History Tobacco Use Smoking status: Former Packs/day: 2.00 Years: 12.00 Pack years: 24.00 Types: Cigarettes Quit date: 06/25/1981 Years since quittin.9 Smokeless tobacco: Never Vaping Use Vaping Use: Never used Substance Use Topics Alcohol use: Yes Comment: wine with meals Drug use: No Current Outpatient Medications on File Prior to Visit Medication Sig ergocalciferol 50,000 unit capsule (VITAMIN D2, DRISDOL) Take 1 capsule by mouth one time a week. sertraline (ZOLOFT) 50 mg tablet 1/2 a tablet by mouth once a day for 10 days then go to one tablet daily pioglitazone (ACTOS) 15 mg tablet Take 1 tablet by mouth once daily. fluticasone-salmeterol (ADVAIR, WIXELA) 250-50 mcg/dose inhaler Inhale 1 Puff as instructed twice daily. amitriptyline (ELAVIL) 25 mg tablet Take 2 tablets by mouth daily at bedtime. atorvastatin (LIPITOR) 40 mg tablet Take 1 tablet by mouth once daily. levothyroxine (SYNTHROID) 100 mcg tablet Take 1 tablet by mouth daily before breakfast. VENTOLIN HFA 90 mcg/actuation inhaler Inhale 2 Puffs as instructed every 4 hours as needed for wheezing/shortness of breath. albuterol (PROVENTIL) 2.5 mg /3 mL (0.083 %) nebulizer solution inhale 3 milliliters in nebulizer every 4 hours if needed for wheezing /SHORTNESS OF BREATH. USE OVER 5 -15 MINUTES aspirin, enteric coated (ASPIRIN, ENTERIC COATED) 81 mg EC tablet Take 1 tablet by mouth once daily. clobetasol (TEMOVATE) 0.05 % ointment Apply 1 application to affected area twice daily. TO AFFECTED AREA for 2 weeks. COMPOUNDED PRESCRIPTION NEBULIZER and supplies FOR HOME USE. DX: J45.30, J45.90. Length of need is life. This is a medically necessary devise for management of patients lung disease. Current machine recently stopped working. While trying to use it started to smoke and stopped. No current facility-administered medications on file prior to visit. ALLERGIES Allergen Reactions Typhoid Vaccine Intolerance Adhesive Tape (Haley* Other: See Comments after 2 days area becomes red and itches Cats Intolerance Diclofenac Other: See Comments elevated liver enz Dogs Intolerance Dust Intolerance Environmental [Othe* Other: See Comments sneezing Meloxicam Other: See Comments Swollen eyelids Mold Intolerance Tegretol [Carbamaze* Intolerance blood problem Objective Exam: Vitals: As per nursing documentation Constitutional: Normal Appearance, Oriented to Time, Place and Person Head: No lacerations, no external signs of trauma Eyes: Conjunctiva clear. No discharge from the eyes Cardiovascular: Appears well-perfused Pulmonary: Non-labored respirations Abdominal: Non-distended Skin: No visible rashes or ecchymosis Psychiatric: Mood appropriate for given condition Neurological: Gross movements are limited by pain, but otherwise unremarkable Assessment and Plan: As noted above UNIVERSAL PROTOCOL / SAFETY CHECKLIST * Procedure to be Performed: as noted above Sign In: A Moment of CARE was completed. Personnel directly involved with the procedure wore the appropriate PPE (Personal Protective Equipment). Patient/Surrogate Stated/Verified: PATIENT VERIFIED(optional for EMERGENT procedures): Patient name, Date of , Relevant allergies and The intended procedure Time Out Communication: Intended patient and procedure match the source documents. Consent documented and matches the intended procedure. Obtained in writing prior to procedure I had a nice discussion with the patient today about their current pain and the pathology that could be causing it We discussed different treatment options, including risks, benefits and alternatives. We agreed to proceed as previously discussed, or the plan was modified in accordance with the comments noted above Unless stated otherwise in the procedure note, the risks include but are not limited to infection, allergic reaction, increased pain, lack of therapeutic benefit, steroid reaction, nerve damage, paralysis, stroke, epidural hematoma, syncope, headache, respiratory or cardiac arrest, pneumothorax, and scar formation Once the plan was agreed upon, the patient gave written consent to proceed and was transported into the procedure room Sign Out: SIGN OUT (optional for EMERGENT procedures): No specimen collected. Post-procedure follow-up management communicated and Plan of Care Visit completed when applicable. Time Out was led by the physician in the procedure room, with the patient and all staff present and participating The following information was verified during the Time Out process: Patient name, patient date of , procedure site (marked), laterality, anticoagulants and allergies Procedure: The patient was prepped and draped in a sterile fashion in the prone position after informed consent was signed and all patient questions were answered including the risks, benefits, alternative treatment options, and prognosis. The risks are as mentioned above. To block the facet joint nerves from C4 through C6, the lateral masses of these respective levels were localized under fluoroscopic visualization. A spinal needle was inserted down to the waist at the above-mentioned cervical levels. Using biplanar imaging, the needle was then walked off until it rested just lateral to the trough of the lateral mass of the medial branch nerve lies, which innervates the cervical facet joint. After contact with periosteum and negative aspirate for blood and CSF, correct placement of each needle without intravascular or epidural spread was confirmed by injecting 0.2cc of Omnipaque 300. A spot radiograph was obtained of this image. Next, a 0.5cc volume of the injectate noted above was then injected. Please see the nursing note for exact times (time out, procedure start, procedure end). After careful removal of the needle, there was minimal bleeding. The injection site was covered with appropriate sterile dressing. The patient was noted to have tolerated the procedure well and was discharged after an appropriate period of post-procedure observation. The patient was instructed to contact us if there were any complications. The patient was advised to follow-up with the requesting physician within one to two weeks or as per their requested follow-up plan. Post procedure visit summary with written instructions was offered to the patient. Ramiro Barnett MD, MBA Pain Management [facility] documented in this encounter [facility] 05-17-2022 History of Present illness Narrative AMBULATORY TELEPHONE VISIT Montserrat Rod Aguayo has consented to this telephone encounter. Persons Present: patient Chief Complaint/Reason: Neck pain, pain score 3-4/10 HPI: She had a cervical medial branch blocks on 05/23/[address] Barnett that is helped the pain here by 0%. She had numbness in the back of the neck, but the sides of her neck are the most painful. During this time she didn't notice any changes in her ROM or pain. She has been in PT and this is helping short term. She finds when she has the hands on therapy along with dry needling help the most.. The worst of the pain is on the right. Dr Barnett did note she had TPs on exam. Ht 170.2 cm (5' 7) Wt 97.1 kg (214 lb) LMP 01/06/2009 BMI 33.52 kg/m GENERAL: No weight loss, malaise or fevers HEENT: nasal congestion NECK: See HPI RESPIRATORY: Negative for cough, hemoptysis, wheezing, COPD, dyspnea or shortness of breath CARDIOVASCULAR: Negative for chest pain, leg swelling, hypertension, CHF or palpitations GI: No nausea, vomiting, or diarrhea : No history of dysuria, frequency or incontinence MUSCULOSKELETAL: see HPI SKIN: Negative for lesions, rash, and itching PSYCH: Negative for sleep disturbance, mood disorder and recent psychosocial stressors HEMATOLOGY/LYMPHOLOGY: Negative for prolonged bleeding, bruising easily or swollen nodes ENDOCRINE: Negative for cold or heat intolerance, polyuria, polydipsia and goiter NEURO: negative NT or weakness, some radiation of pain to the bilateral scapular region with ROM Data Reviewed: most recent imaging 03/21/2022 10:52 AM - Radiology, [place] Impression IMPRESSION: Cervical degenerative disease with no more than mild canal stenosis. Severe multilevel neural foraminal narrowing. Anatomic Variant: None. Assume 7 cervical vertebrae with counting from the craniocervical junction. Photographs Curator: DON Transcribe Date/Time: Mar 21 2022 10:43A Dictated by : JULIANO MARK MD This examination was interpreted and the report reviewed and electronically signed by: JULIANO MARK MD on Mar 21 2022 10:50AM EST Results-Findings * * *Final Report* * * DATE OF EXAM: Mar 21 2022 10:10AM [facility] 0297 - MRI CERVICAL SPINE WO IVCON / PROCEDURE REASON: Cervicalgia * * * * Physician Interpretation * * * * EXAMINATION: MRI CERVICAL SPINE WO IVCON CLINICAL HISTORY: Cervicalgia Family medicine Epic (electronic medical record) Encounter (USING CUT AND PASTE FEATURE) 03/03/2022: Cervicalgia - ICD9: 723.1, ICD10: M54.2 Patient has had over 6-8 weeks of PHYSICAL THERAPY with no improvement and now has pain on both sides of neck. ?Need to eval central canal and discs. ?Cervical x-ray showed foraminal stenosis and MRI would also provide more detailed info. Need to determine if surgical issue or next step being pain management.? ? Check? - ?MRI CERVICAL SPINE WO IVCON NOTE: CUTTING AND PASTING from [facility] to the dictation system appears to introduce QUESTION PONCE after report finalization not visible during the dictation/within the dictation system itself even if reloaded for an addendum. Presumably a glitch in coding between the systems. Inappropriateness of the QUESTION PONCE usually clear from the context. If indeterminate, please refer to the original report in Epic. Additionally, not responsible for any errors in the PASTED INFORMATION whether historical, contextual, typographical, grammatical, or otherwise. For REFERENCE PURPOSES only and any concerns regarding the content should be raised with the actual provider for the given [facility] encounter. TECHNIQUE: Routine cervical spine MR protocol without gadolinium. MQ: [id number] COMPARISON: Head CT/CTA head and neck 08/30/2021. MRI brain 07/15/2021. Cervical radiographs 11/08/2021. RESULT: Counting reference: Craniocervical junction. Anatomic Variants: None. Localizer images: No additional findings. Grossly unremarkable visualized intracranial contents and soft tissues. Straightening of the normal cervical lordosis. Mild dextrocurvature of the cervicothoracic junction and levocurvature of the upper thoracic spine. Preservation of vertebral body height. Multilevel degenerative disc disease and facet arthrosis with up to mild endplate changes minimal articulating pillar changes. No concerning marrow signal. Correlating closely with CTA of the neck, following degrees of canal compromise from posterior disc osteophyte complex formation and neural foraminal narrowing from loss of disc height, uncovertebral hypertrophy, and facet arthrosis: C2/3: Patent. C3/4: Mild spinal canal and left neural foramen and moderate right neural foramen. C4/5: Minimal spinal canal and severe neural foramina. C5/6: Mild spinal canal and severe neural foramina. C6/7: Mild spinal canal and severe left neural foramen. C7/T1: Mild left neural foramen. Trace degenerative disease related ventral indentation of the spinal cord with no abnormal cord signal, volume loss, or swelling. Assessment: (M47.812) Cervical spondylosis without myelopathy (primary encounter diagnosis) Myalgia - ICD9: 729.1, ICD10: M79.10 Plan: Risks, benefits, and alternatives to the procedure were discussed with the patient. The patient was educated about special protocols to mitigate any exposure or infection risk in our facility and patient wishes to proceed with the procedure. H&P done 05/24/2022 She appears to have more myofascial related pain versus the facet pain. I speculate her facets are causing issues referring pain to the muscle her biggest issue is not over the facets. I am going to place an order for trigger points to be done in the bilateral trapezius and scapular border instead of the next diagnostic medial branch block. When Dr. Barnett sees her the day of the injection he may choose to do the trigger point versus the diagnostic medial branch block. She had 0% relief with this injection so I think we may need to change our approach. We could even consider a C6/7 interlaminar epidural instead of the MBB. The stenosis here may be contributing to the ongoing myofascial dysfunction and pain that she is experiencing in the trapezius and scapular region Total Time Spent: 14 minutes Margarita Traylor APRN.CNP documented in this encounter [facility] 05-17-2022 Instructions Margarita Traylor APRN.CNP - 05/17/2022 7:25 AM EST Ice and heat as tolerated Activity as tolerated documented in this encounter [facility] 05-16-2022 History of Present illness Narrative Episode Visit Count: 14 Therapist That Will Accept/Oversee The Plan Of Care: Alex Mendenhall Start of Care Date: 11/10/21 Onset Date: 10/11/21 REHABILITATION AND SPORTS THERAPY PHYSICAL THERAPY TREATMENT NOTE ASSESSMENT: Montserrat Aguayo tolerated the session with no issues. She demonstrated difficulty with more constant neck pain. The patient will continue to benefit from ongoing skilled physical therapy to progress toward set goals. PLAN FOR NEXT VISIT: Continue manual for symptom relief SUBJECTIVE: Patient Reason for Visit: Neck pain has become more constant, is on both sides. Pt getting hot needle procedure next week. Pain: Pain Pain Level: 5 Pain Location: Neck Description: Tightness;Sore;Aching Frequency: Continuous OBJECTIVE MEASURES WITH LEVEL OF FUNCTION: Traction improves symptoms TREATMENT: Therapeutic Exercise: 1: *Upper trap stretch 3x30 sec/side 2: *Levator stretch 3x30 sec/side Skilled Intervention: Patient was educated in proper exercise technique and purpose for exercises. Skilled judgment was provided in selection of appropriate interventions. Provided written instruction for home exercise program to facilitate proper performance and compliance. Correct performance of therapeutic exercises was facilitated with verbal, visual, and tactile cuing. Manual Therapy: 1: STM to B SCM, upper traps, cervical paraspinals 2: Manual cervical traction x18 min 3: Suboccipital release multiple spots bilaterally 4: Upper trap stripping B Skilled Intervention: Manual skills to improve joint mobility, ROM, and decrease pain. Utilized anatomy knowledge of the therapist, and assessment of patient's response to intervention. Billing Therapeutic Exercise Treatment Minutes: 5 Manual TherapyTreatment Minutes: 25 Total Treatment Time Minutes (timed/untimed): 30 Alex Mendenhall PT documented in this encounter [facility] 05-02-2022 History of Present illness Narrative Episode Visit Count: 13 Therapist That Will Accept/Oversee The Plan Of Care: Alex Mendenhall Start of Care Date: 11/10/21 Onset Date: 10/11/21 REHABILITATION AND SPORTS THERAPY PHYSICAL THERAPY TREATMENT NOTE ASSESSMENT: Montserrat Aguayo tolerated the session with decreased symptoms. She demonstrated improvements in neck pain and cervical rotation range of motion. The patient will continue to benefit from ongoing skilled physical therapy to progress toward set goals. PLAN FOR NEXT VISIT: Continue manual per tolerance, progress exercises as able SUBJECTIVE: Patient Reason for Visit: Pt about 50% better compared to last week and this has stuck. encouraged by improvements Pain: Pain Pain Level: 3 Pain Location: Neck Description: Tightness;Sore Frequency: Continuous OBJECTIVE MEASURES WITH LEVEL OF FUNCTION: Cervical Spine ROM Cervical Side-Bend Left AROM (degrees) : 63 Degrees Cervical Rotation Right AROM (degrees) : 63 Degrees TREATMENT: Manual Therapy: 1: STM to B SCM, upper traps, cervical paraspinals 2: Manual cervical traction x18 min 3: Suboccipital release multiple spots bilaterally 4: Upper trap stripping B Skilled Intervention: Manual skills to improve joint mobility, ROM, and decrease pain. Utilized anatomy knowledge of the therapist, and assessment of patient's response to intervention. Billing Manual TherapyTreatment Minutes: 39 Total Treatment Time Minutes (timed/untimed): 39 Alex Mendenhall PT documented in this encounter [facility] 05-01-2022 Miscellaneous Notes The following approved medication requests have been transmitted electronically. Requested Prescriptions Signed Prescriptions Disp Refills ergocalciferol 50,000 unit capsule (VITAMIN D2, DRISDOL) 12 capsule 3 Sig: Take 1 capsule by mouth one time a week. Authorizing Provider: LIAM WILKINS MD Patient has been identified by name and date of : Yes Requested Prescriptions Pending Prescriptions Disp Refills ergocalciferol 50,000 unit capsule (VITAMIN D2, DRISDOL) 12 capsule 3 Sig: Take 1 capsule by mouth one time a week. RX INSTRUCTIONS: Patient aware RX will be sent to pharmacy. No need to notify patient. Namrata Clifford MA Lambert: 12/2021 Nov: 07/2022 Last refill: 03/2021 Patient has been identified by name and date of : Yes Requested Prescriptions Pending Prescriptions Disp Refills ergocalciferol 50,000 unit capsule (VITAMIN D2, DRISDOL) 12 capsule 3 Sig: Take 1 capsule by mouth one time a week. RX INSTRUCTIONS: Patient aware RX will be sent to pharmacy. No need to notify patient. Patricia Condon documented in this encounter [facility] 04-25-2022 History of Present illness Narrative Episode Visit Count: 12 Therapist That Will Accept/Oversee The Plan Of Care: Alex Mendenhall Start of Care Date: 11/10/21 Onset Date: 10/11/21 REHABILITATION AND SPORTS THERAPY PHYSICAL THERAPY RE-EVALUATION PLAN OF CARE UPDATE: Assessment: Montserrat Aguayo demonstrates difficulty with neck pain, especially with turning activities/motions. She is appropriate to continue with previously established goals. Patient continues to present with impairments in ADL's, overall function, range of motion, strength , and symptom management that interfere with driving;sleeping Turning. Current prognosis is Good due to: current objective clinical presentation;positive past response to therapy;within-session changes;good support system/ coping skills . She will benefit from continued skilled therapy services to meet the updated goals for this plan of care as noted below. Goals updated on 04/25/2022. Goals for Episode of Care: created on 04/25/22 through 07/26/22 Independent in a Home Exercise Program. Currently met, continuing Patient will decrease pain rating by 2 points to meet minimal clinical important difference for numeric pain rating scale. Not met Restore pain free cervical ROM to WNL to allow for improved functional mobility and decreased pain. Not met Drive with no aggravation of pain/symptoms. Not met Sleep throughout the night without pain/symptoms. Not met Maintain proper sitting posture throughout the session to allow for decreased pain. Progressing towards. Planned Interventions, Frequency, and Duration: 1x/week, 12 weeks Total Number of Visits Planned: 12 Patient to be seen for Therapeutic exercise (26450);Neuromuscular re-education (08452);Manual therapy (05603);Therapeutic activities (57423);Self-retirement management (54402);Gait Training (77807);Patient/Family/Caregiver Education;Body Mechanics Training PLAN FOR NEXT VISIT: Continue traction and manual per symptoms, exercises as pain eases SUBJECTIVE: Patient Reason for Visit: Pt had been trying to self manage symptoms for the last 2+ months, but pain has gradually built up and gotten worse. She notes that pain is mostly in the enck and a little into the shoulders, no numbness or weakness noted. She continues the stretches but finds no lasting relief. Functional Limitations: driving;sleeping Functional Limitation Comments: Turning Pain: Pain Pain Level: 6 Pain Location: Neck Description: Tightness;Sore;Aching Frequency: Continuous PROMIS Scales Higher is Better 12/04/2019 06/03/2020 11/10/2021 Phys Func - Score - - 48 (within normal limits) Phys Func - Percentile - - 42 % Social Roles - Score - - 59 (within normal limits) Social Role - Percentile - - 82 % GH Physical - Score 50.8 50.8 54.1 (Very Good) GH Physical - Percentile 53 % 53 % 66 % GH Mental - Score 59 59 50.8 (Very Good) GH Mental - Percentile 82 % 82 % 53 % Self-Eff Symptom - Score - - 56 (Average) Self-Eff Symptom - Percentile - - 73 % T-scores: mean of general population = 50. 5 points is clinically meaningfully difference Percentiles provide an indication of how the patient's score ranks in relation to the general population. Higher percentile rankings indicate better function/quality of life. 50th percentile is the average of the general population and indicates half of respondents had a worse score. Lower is Better 11/10/2021 Fatigue - Score 42 (within normal limits) Fatigue - Percentile 79 % T-scores: mean of general population = 50. 5 points is clinically meaningfully difference Percentiles provide an indication of how the patient's score ranks in relation to the general population. Higher percentile rankings indicate better function/quality of life. 50th percentile is the average of the general population and indicates half of respondents had a worse score. OBJECTIVE MEASURES WITH LEVEL OF FUNCTION: Spine Observations R Cervical Spine Palpation Tenderness: Upper trapezius;Paraspinals;Sternocleido mastoid L Cervical Spine Palpation Tenderness: Upper trapezius;Paraspinals;Sternocleido mastoid Cervical Spine ROM Cervical Flexion AROM: Normal Cervical Extension AROM: Minimal limitation Cervical Side-Bend Right AROM: Moderate limitation Cervical Side-Bend Left AROM: Moderate limitation Cervical Rotation Right AROM: Moderate limitation Cervical Rotation Left AROM: Moderate limitation TREATMENT: Therapeutic Exercise: 1: Re-issued HEP handout from last visit and cued for proper form/performance Skilled Intervention: Patient education as noted. Manual Therapy: 1: STM to B SCM, upper traps, cervical paraspinals 2: Manual cervical traction x18 min 4: Suboccipital release multiple spots bilaterally Skilled Intervention: Manual skills to improve joint mobility, ROM, and decrease pain. Utilized anatomy knowledge of the therapist, and assessment of patient's response to intervention. Billing * Re-Evaluation Complexity: 1 Unit Therapeutic Exercise Treatment Minutes: 4 Manual TherapyTreatment Minutes: 30 Total Treatment Time Minutes (timed/untimed): 44 Alex Mendenhall, PT documented in this encounter [facility] 04-24-2022 Miscellaneous Notes Patient was notified and voiced understanding. Please schedule patient for PT. Namrata Clifford MA PHYSICAL THERAPY order placed. Help set up appt. Patient will be having dry needling, however it is not scheduled until mid April. Is asking for a PT order/massage to get her through until that appointment. Therapy was effective until she stopped and neck pain is worse again. documented in this encounter [facility] 04-20-2022 Miscellaneous Notes 1.Are you diabetic No 2. Are you on any blood thinners? No 3. Are you taking any aspirin? No 4. Have you had any recent imaging done on your body part that's being injected? Yes MRI 5. Do you have any allergies to latex? No 6. Do you have any allergies to seafood? No 7. Do you have any allergies to shellfish? No 8. Do you have any allergies to x-ray dye? No 9. Are you taking Xanax for the procedure? No 10. Have you done physical therapy in the last year? Yes If yes, When and Where? [facility] (Medical Records Release needs to be signed.) 11. Were the pre-procedure instructions explained to the patient? Yes, explained to patient and printed. 12. Do you have a pacemaker? No 13. Do you have an internal stimulator of any kind? No If yes, please bring the remote with you to your procedure visit. 14. Have you received the COVID-19 Vaccine? Yes. If yes, date(s) received: explained and printed for patient. (Patient should not receive a procedure including steroids 14 days prior to their first dose of the COVID vaccine. They should not receive any procedure containing steroids in the time frame between their 1st and 2nd doses of the COVID vaccine. They should not receive a procedure containing steroids 14 days after their 2nd dose of the COVID vaccine.) Loni Andrews documented in this encounter [facility] 04-20-2022 History of Present illness Narrative Review of Systems Constitutional: Negative for activity change, chills, fever and unexpected weight change. Gastrointestinal: Negative for bowel retention or incontinence Genitourinary: Negative for difficulty urinating. Negative for bladder retention or incontinence Musculoskeletal: Positive for arthralgias, back pain, joint swelling, myalgias, neck pain and neck stiffness. Negative for gait problem. Neurological: Negative for weakness, numbness and headaches. Psychiatric/Behavioral: Negative for dysphoric mood, sleep disturbance and suicidal ideas. The patient is not nervous/anxious. Images from the original note were not included. [facility] Today's Date: 04/20/2022 Last Visit: N/A Name: Montserrat Aguayo : 1950 Purpose: New Patient Consultation Chief complaint: Neck Pain Thank you, Dr. Mendoza Wilkins MD, for referring Montserrat Aguayo for evaluation and management options for the chief complaint(s) noted below. Initial HPI: (Obtained on 04/20/2022) Montserrat Aguayo is a 72 year old female, who presents having been referred by Dr. Mendoza Wilkins MD, for evaluation and management of the above-mentioned chief complaint. This has been present for the past seven months. The onset of symptoms was not sudden and was without associated trauma. She started experiencing left-sided neck pain, no trauma. She had a course of PT (13 visits between 11/10 and 03/07/2022), had some dry needling. Continues to do stretches daily, but unfortunately, pain is now on both sides of her neck. Treatments prior to initial presentation include the following: Medications (See below), Modalities (eg. Heat, Ice), Physical Therapy , Home Exercise Program , and Activity Modification. Pain Description: Timing: constant Character: deep aching Primary Location: axial neck, left > right Radiation: upper traps (occasional headaches after exercises; no limb symptoms) Exacerbating factors: unable to pinpoint exacerbating factors/positions Relieving factors: unable to pinpoint positions/factors that are mitigating Interferes with: nothing The patient denies difficulty with bowel or bladder control, unintentional weight loss, and fevers, chills, or night sweats. Current Status: INTAKE PAIN ASSESSMENT 03/21/2022 04/20/2022 Are you having pain associated with your visit today? Yes, Provider notified Yes, Provider notified Pain Scales Verbal (Numeric Rating or Visual Analog Scale) Verbal (Numeric Rating or Visual Analog Scale) Pain Level - 5 Pain Location Throat Neck-Posterior Description Aching Tightness;Stiffness Duration Amount of Time 5 - Duration Units Days Months Frequency Continuous Continuous Intervention/Comfort measure Medication Reposition;Relaxation;Positioning Comments - - Pain Assessment - - Medications: CURRENT Pain Medications: Opioid Pain Medications: None Date last filled: N/A Quantity filled: N/A How many left: N/A Time most recent dose taken: N/A Non-Opioid Pain Medications: Elavil 50mg qHS (PCP) - takes for CRPS type 2 right lower limb, injury in 1980, stable on current medications Ivtc-pbs-fhulzhs (OTC) Pain Meds: Ibuprofen OTC at night Compliance: PDMP website checked and validated. All prescriptions have been APPROPRIATELY filled. No suspicious activity was identified. 04/20/2022 by Ramiro Barnett MD Last Drug screen: Not Applicable Risk Assessment: BEE-7: BEE - 7 SCORES 04/20/2022 BEE-7 Score 0 (0-4) minimal anxiety, (5-9) mild anxiety, (10-14) moderate anxiety, (15-21) severe anxiety PHQ-9: PHQ-9 11/15/2011 04/20/2022 Score 1 0 (0-4) minimal depression, (5-9) mild depression, (10-14) moderate depression, (15-19) moderately severe depression, (20-27) severe depression Opioid Risk Tool: Family History of Substance Abuse: 0 - No Personal History of Substance Abuse: 0 - No Age between 16-45: 0 - No History of Pre-Adolescence Sexual Abuse: 0 - No Psychological Disease: 0 - No Risk Total: 0 Total Score Risk Category: Low Risk 0-3 (0-3, low risk or no risk; 4-7, moderate risk, 8+, high risk) Safety Checklist: Are you taking proper precautions to safe guard your medication? Yes Taking the medications as prescribed? Yes Getting pain medications from another physician? No Obtaining pain medication from another source? No Sharing medications with friends/family? No Quality of life improved as a result of taking these medications? Yes Any side effect with this medication? No Justification for Continued Opioid Care: Adequate analgesia? Yes Aberrant drug seeking behavior? No Adverse reactions? No Medications improve quality of life? Yes Pain Medications Taken TO DATE (for the chief complaint(s)): Membrane Stabilizers: Elavil (Amitriptyline) NSAIDS: Motrin (Ibuprofen), Voltaren (Diclofenac), Mobic (Meloxicam), and Relafen (Nabumetone) Opioids: Vicodin or Tilden (Hydrocodone) and Percocet (Oxycodone) Muscle Relaxants: Flexeril (Cyclobenzaprine) Topicals: CBD - uses for peripheral joint OA pain, did not help on neck Other Prescription or OTC Pain Medications: none Anti-depressants: Zoloft Non-Pain Meds of Note: None Allergies: ALLERGIES Allergen Reactions Typhoid Vaccine Intolerance Adhesive Tape (Haley* Other: See Comments after 2 days area becomes red and itches Cats Intolerance Diclofenac Other: See Comments elevated liver enz Dogs Intolerance Dust Intolerance Environmental [Othe* Other: See Comments sneezing Meloxicam Other: See Comments Swollen eyelids Mold Intolerance Tegretol [Carbamaze* Intolerance blood problem Diagnostic Studies: Relevant Imaging: Reviewed Personally on today's date, noted above MRI Spine Report MRI CERVICAL SPINE WO IVCON Exam End: 03/21/2022 10:19 AM (Final result) Narrative: * * *Final Report* * * DATE OF EXAM: Mar 21 2022 10:10AM [facility] 0297 - MRI CERVICAL SPINE WO IVCON / PROCEDURE REASON: Cervicalgia * * * * Physician Interpretation * * * * EXAMINATION: MRI CERVICAL SPINE WO IVCON CLINICAL HISTORY: Cervicalgia Family medicine Epic (electronic medical record) Encounter (USING CUT AND PASTE FEATURE) 03/03/2022: Cervicalgia - ICD9: 723.1, ICD10: M54.2 Patient has had over 6-8 weeks of PHYSICAL THERAPY with no improvement and now has pain on both sides of neck. ?Need to eval central canal and discs. ?Cervical x-ray showed foraminal stenosis and MRI would also provide more detailed info. Need to determine if surgical issue or next step being pain management.? ? Check? - ?MRI CERVICAL SPINE WO IVCON NOTE: CUTTING AND PASTING from [facility] to the dictation system appears to introduce QUESTION PONCE after report finalization not visible during the dictation/within the dictation system itself even if reloaded for an addendum. Presumably a glitch in coding between the systems. Inappropriateness of the QUESTION PONCE usually clear from the context. If indeterminate, please refer to the original report in Epic. Additionally, not responsible for any errors in the PASTED INFORMATION whether historical, contextual, typographical, grammatical, or otherwise. For REFERENCE PURPOSES only and any concerns regarding the content should be raised with the actual provider for the given Epic encounter. TECHNIQUE: Routine cervical spine MR protocol without gadolinium. MQ: [id number] COMPARISON: Head CT/CTA head and neck 08/30/2021. MRI brain 07/15/2021. Cervical radiographs 11/08/2021. RESULT: Counting reference: Craniocervical junction. Anatomic Variants: None. Localizer images: No additional findings. Grossly unremarkable visualized intracranial contents and soft tissues. Straightening of the normal cervical lordosis. Mild dextrocurvature of the cervicothoracic junction and levocurvature of the upper thoracic spine. Preservation of vertebral body height. Multilevel degenerative disc disease and facet arthrosis with up to mild endplate changes minimal articulating pillar changes. No concerning marrow signal. Correlating closely with CTA of the neck, following degrees of canal compromise from posterior disc osteophyte complex formation and neural foraminal narrowing from loss of disc height, uncovertebral hypertrophy, and facet arthrosis: C2/3: Patent. C3/4: Mild spinal canal and left neural foramen and moderate right neural foramen. C4/5: Minimal spinal canal and severe neural foramina. C5/6: Mild spinal canal and severe neural foramina. C6/7: Mild spinal canal and severe left neural foramen. C7/T1: Mild left neural foramen. Trace degenerative disease related ventral indentation of the spinal cord with no abnormal cord signal, volume loss, or swelling. Impression: IMPRESSION: Cervical degenerative disease with no more than mild canal stenosis. Severe multilevel neural foraminal narrowing. Anatomic Variant: None. Assume 7 cervical vertebrae with counting from the craniocervical junction. Photographs Curator: DON Transcribe Date/Time: Mar 21 2022 10:43A Dictated by : JULIANO MARK MD This examination was interpreted and the report reviewed and electronically signed by: JULIANO MARK MD on Mar 21 2022 10:50AM EST Electrodiagnostic Study (EMG): None Pain Procedures: DATE PROCEDURE IMPROVEMENT None to date at this practice Current Medications, Past Medical History, Past Surgical History, Family History, Social History and Review of Systems: On today's date, noted above, I have confirmed and edited as necessary, the PFSH and ROS obtained by others. Physical Exam: 04/20/22 0831 Pulse: 84 Resp: 16 SpO2: 97% Constitutional:overweight Eyes: Conjunctiva clear. No discharge from eyes Cardiovascular: Appears well perfused Lymphatic: No visible regional lymphadenopathy Skin: No visible rashes or ecchymosis Psychiatric: Full affect, Alert, Pleasant Neuro-Upper: Sensation: Grossly intact to light touch in both upper limbs (C5-T1) dermatomes Strength: Deltoid (C5): 5 left, 5 Right Biceps (C6): 5 left, 5 Right Triceps (C7): 5 left, 5 Right Wrist Extensors (C8): 5 left, 5 Right Abduct. Pollicis Brevis (T1): 5 left, 5 Right Muscle Tone: Normal and symmetric throughout, without clonus Reflexes: Normal 2+ and symmetric biceps, triceps, brachioradialis Richardson: Negative (Normal) bilaterally Musculoskeletal-Upper: Inspection: Symmetric without atrophy Palpation: Cervical Paraspinal Tenderness: Concordant Triggering: bilateral upper traps Greater Occipital Nerves: no tenderness in overlying tissue Paraspinal spasm: Moderate Range of Motion: Flexion/Extension: Normal Without end range pain Lateral Bending: Decreased 50% With end range pain Lateral Rotation: Decreased 25% With end range pain Diagnoses: (M47.812) Cervical spondylosis without myelopathy (primary encounter diagnosis) (M48.02) Cervical stenosis of spinal canal Impression: 72 year old female with significant past medical history for CRPS type 2 right lower limb, HLD, GERD, IBS, Breast Cancer (In Remission), Obesity, Carotid Stenosis, Mitral Valve Disorder, Cervical Stenosis, who presents with complaint(s) of left > right-sided neck pain, facet-mediated, mild central canal stenosis at C5-6 and C6-7, associated facet arthropathy. Plan: Montserrat Aguayo would benefit from the following to reach personal goals for decreasing pain, improving function and work participation, and/or improving quality of life: -Interventional Procedure: Medial branch blocks bilateral C4-5 and C5-6 under fluoroscopic guidance x 2, RFA if positive The risks, benefits, alternative treatment options and prognosis of the procedure were discussed and all of the patient's questions/concerns were addressed to the patient s satisfaction. Patient was advised that they will need a livery car driver for after the procedure and that if no livery car driver is available and on site at the time of the procedure, the procedure will be cancelled. For any anticoagulants, the patient was advised on whether to continue or hold for this procedure. The patient expressed understanding and gave verbal consent to proceed. Medication(s): Continue Elavil 50 qHS Additional Studies: None Referrals: No additional considerations at present Functional Muslim: No changes-continue current regimen Depending on response to the above plan, consider: RFA; MBB C6-7 -Follow-up: 3 months Attribution: In addition to reviewing the information noted above, some elements copied from my most recent clinical note(s), including the physical exam (completed in entirety today), and the impression and plan sections, have been updated where appropriate. All reflect current medical decision making from today's date. Ramiro Barnett MD, [facility] documented in this encounter [facility] 03-23-2022 Miscellaneous Notes Patient notified and voiced understanding. Leave note open as Dr. Barnett's office is to be scheduling. Namrata Clifford MA Let patient know it's ok to do the PHYSICAL THERAPY exercises as long as they don't cause increased pain. Pt called in and wanted to ask provider if she should keep doing the exorcizes provided to her by PT, or if they would be doing harm. Gave Pt phone number to Pt for Dr Barnett's office at [facility]. Please call and advise. Pt called and notified of message below and verbalized understanding. Made pt aware that Dr. Barnett's office will be contacting her to schedule. Tanya Daley Ma Routed to Dr. Barnett's office to assist in scheduling. Let patient know MRI of neck shows no significant narrowing of the spinal canal. There is Mod to sever narrowing on the left where the nerve roots come out and suspect this is the source of her pain. My advise would be for her to see Dr. Barnett inn Pain management from [facility]. Order placed documented in this encounter [facility] 03-21-2022 History of Present illness Narrative This note was created using [employer]. Subjective Montserrat Aguayo is a 72 year old female. HPI Patient presents with fatigue, congestion, body aches over the past 5 days. She has had minimal cough. She did take a home COVID test the first day of symptoms and was negative. 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 No diarrhea or vomiting. Review of Systems Constitutional: Positive for chills and fatigue. Negative for fever. HENT: Positive for congestion and sore throat. Respiratory: Positive for cough. Cardiovascular: Negative. Gastrointestinal: Negative. Genitourinary: Negative. Musculoskeletal: Positive for myalgias. Neurological: Positive for headaches. All other systems reviewed and are negative. PAST MEDICAL HISTORY Diagnosis Date Acquired hypothyroidism 11/29/2005 Bilateral carotid artery stenosis 07/13/2021 US: 06/2021: Stephen 20-40% 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, right (HCC) 10/05/2017 Cataracts, bilateral 12/20/2016 Some relation to steroids with her asthma. 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 RSD (reflex sympathetic dystrophy) Sebaceous cyst 01/20/2014 Spinal stenosis, unspecified region other than cervical 03/02/2006 Trigger ring finger of right hand 06/23/2014 Vitamin D deficiency 09/15/2019 Current Outpatient Medications Medication Sig Dispense Refill sertraline (ZOLOFT) 50 mg tablet 1/2 a tablet by mouth once a day for 10 days then go to one tablet daily 30 tablet 5 pioglitazone (ACTOS) 15 mg tablet Take 1 tablet by mouth once daily. 90 tablet 1 predniSONE (DELTASONE) 10 mg tablet Take 4 tabs daily for 3 days, then 2 tabs daily for 3 days, then 1 tab daily for 3 days with food. 21 tablet 0 fluticasone-salmeterol (ADVAIR, WIXELA) 250-50 mcg/dose inhaler Inhale 1 Puff as instructed twice daily. 180 Each 1 amitriptyline (ELAVIL) 25 mg tablet Take 2 tablets by mouth daily at bedtime. 180 tablet 1 atorvastatin (LIPITOR) 40 mg tablet Take 1 tablet by mouth once daily. 90 tablet 1 levothyroxine (SYNTHROID) 100 mcg tablet Take 1 tablet by mouth daily before breakfast. 90 tablet 1 VENTOLIN HFA 90 mcg/actuation inhaler Inhale 2 Puffs as instructed every 4 hours as needed for wheezing/shortness of breath. 18 g 11 albuterol (PROVENTIL) 2.5 mg /3 mL (0.083 %) nebulizer solution inhale 3 milliliters in nebulizer every 4 hours if needed for wheezing /SHORTNESS OF BREATH. USE OVER 5 -15 MINUTES 150 mL 2 ergocalciferol 50,000 unit capsule (VITAMIN D2, DRISDOL) Take 1 capsule by mouth one time a week. (Patient taking differently: Take 50,000 Units by mouth. takes every 2 weeks) 12 capsule 3 clobetasol (TEMOVATE) 0.05 % ointment Apply 1 application to affected area twice daily. TO AFFECTED AREA for 2 weeks. 60 g 2 COMPOUNDED PRESCRIPTION NEBULIZER and supplies FOR HOME USE. DX: J45.30, J45.90. Length of need is life. This is a medically necessary devise for management of patients lung disease. Current machine recently stopped working. While trying to use it started to smoke and stopped. 1 Each 0 aspirin, enteric coated (ASPIRIN, ENTERIC COATED) 81 mg EC tablet Take 1 tablet by mouth once daily. (Patient not taking: Reported on 03/03/2022) No current facility-administered medications for this visit. PAST SURGICAL HISTORY Procedure Laterality Date ADENOIDECTOMY PRIMARY <AGE 14 Adenoidectomy BREAST BIOPSY CORE 04/11/2011 right breast 2:00, 4:00 and 10:00 BREAST BIOPSY INCISIONAL 14 years ago right and left breast- benign BREAST RECONSTRUC W FREE FLAP 12/13/2012 bilateral breast BREAST RECONSTRUC W TISS EXPANDR 05/25/2011 right breast with elevation of the serratus flap CARDIAC CATH 03/20/2017 normal, by Dr. Colvin COLONOSCOPY FLX DX W/COLLJ SPEC WHEN PFRMD 04/08/2007 COLONOSCOPY FLX DX W/COLLJ SPEC WHEN PFRMD N/A 09/06/2016 MAC COLONOSCOPY FLX DX W/COLLJ SPEC WHEN PFRMD 02/10/2019 Colonoscopy INSJ TUNNELED CTR VAD W/SUBQ PORT AGE 5 YR/> 07/06/2011 left IJ MASTECTOMY, SIMPLE, COMPLETE 05/25/2011 right breast skin-sparing with SLND/level 1 LND MASTECTOMY, SIMPLE, COMPLETE 12/13/2012 prophylactic left breast PAST SURGICAL HISTORY OF squamous cell skin ca nose, lips, face PAST SURGICAL HISTORY OF 1972 removal of sweat glands (bilateral axilla (right x 2)and groin) PAST SURGICAL HISTORY OF 03/06/2016 removal of polyp at [facility] [employer] COVID-19 VACCINE, AGE 12+ YR (PURPLE TOP) 09/11/2020 first vaccine REM LESION TRUNK,ARM, LEG <0.5 CM 01/24/2014 Exc. 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 01/18/2012 Removal left IJ port RPR COMPLEX RETINA DETACH VITRECT &MEMBRANE PEEL 09/2014 left retina SIGMOIDOSCOPY FLX DX W/COLLJ SPEC BR/WA IF PFRMD 01/27/2002 Sigmoidoscopy TONSILLECTOMY PRIMARY/SECONDARY <AGE 14 Tonsillectomy FAMILY HISTORY Problem Relation Age of Onset Breast Cancer Mother dx in her 50's other (uterine cancer) Mother dx before breast cancer Heart Father [place] Headache Sister other (other cances) Sister no known family h/o: ovarian; prostate, colon, pancreatic, lung, thyroid, brain, melenoma, leukemia, sarcomas other (rectal cancer) Paternal Grandmother 95 Breast Cancer Maternal Aunt 1) details unknown Breast Cancer Maternal Aunt 2) details unknown Social History Tobacco Use Smoking status: Former Packs/day: 2.00 Years: 12.00 Pack years: 24.00 Types: Cigarettes Quit date: 06/25/1981 Years since quittin.7 Smokeless tobacco: Never Vaping Use Vaping Use: Never used Substance Use Topics Alcohol use: Yes Comment: wine with meals Drug use: No Objective BP 126/84 Pulse 82 Temp 36.2 C (97.2 F) Resp 18 LMP 01/06/2009 SpO2 99% Physical Exam Vitals reviewed. Constitutional: Appearance: Normal appearance. HENT: Head: Normocephalic and atraumatic. Right Ear: Tympanic membrane, ear canal and external ear normal. Left Ear: Tympanic membrane, ear canal and external ear normal. Nose: Congestion present. Mouth/Throat: Mouth: Mucous membranes are moist. Pharynx: Oropharynx is clear. Cardiovascular: Rate and Rhythm: Normal rate and regular rhythm. Heart sounds: Normal heart sounds. Pulmonary: Effort: Pulmonary effort is normal. Breath sounds: Normal breath sounds. Musculoskeletal: Cervical back: Neck supple. Skin: General: Skin is warm and dry. Neurological: General: No focal deficit present. Mental Status: She is alert and oriented to person, place, and time. Assessment and Plan ASSESSMENT/PLAN: 1. Suspected COVID-19 virus infection - ICD9: V01.79, ICD10: Z20.822 COVID testing pending. Discussed supportive care. Discussed red flag symptoms. Discussed quarantine. Patient agreeable - COVID WITH FLUA+B, ROUTINE Jeny Don PA-C documented in this encounter [facility] 03-21-2022 History of Present illness Narrative Radiology Service Progress Note PATIENT NAME: Montserrat Aguayo DATE OF SERVICE: March 21, 2022 TIME: 10:00 AM PATIENT IDENTITY VERIFICATION COMPLETED USING TWO (2) IDENTIFIERS: Name and Date of confirmed by patient verbally. FALL SCREENING: Has the patient had 2 falls in the last year or 1 fall with injury or currently using an Ambulatory Assistive Device (Walker, Cane, Wheelchair, Crutches, etc.)? No PATIENT GENDER DATA: Female. status: : No status: NO. PATIENT RELEVANT IMPLANT DATA REVIEWED: Yes RADIOLOGY DEPARTMENT: MR; Exam(s) Completed: Spine: Cervical spine PERIPHERAL IV DATA: Not applicable SIGNED BY: RT Aly(R) March 21, 2022 10:00 AM documented in this encounter [facility] 03-16-2022 Miscellaneous Notes Patient has been identified by name and date of : Yes Requested Prescriptions Pending Prescriptions Disp Refills sertraline (ZOLOFT) 50 mg tablet 30 tablet 5 Si/2 a tablet by mouth once a day for 10 days then go to one tablet daily pioglitazone (ACTOS) 15 mg tablet 90 tablet 1 Sig: Take 1 tablet by mouth once daily. RX INSTRUCTIONS: Patient aware RX will be sent to pharmacy. No need to notify patient. [facility] 03-03-2022 History of Present illness Narrative Chief Complaint Patient presents with: Pain, Neck HPI Montserrat Aguayo is a 72 year old female who presents here today for follow up on neck pain. Patient was seen in office 11/08/2021 with c/o left neck pain. It had started about 1-2 months prior to the appt and she had been doing HEP with minimal improvement . PE was only positive for left sided paraspinal muscle pain. A CT of the neck done 08/30/2021 showed mild arthritic changes in the cervical spine. Neck x-ray done 11/08/2021 showed multi level degenerative changes with osteophytosis, bilateral foraminal narrowing at C3-T1. Patient has completed 6-8 weeks of PHYSICAL THERAPY and has slight improvement but then symptoms return and over all has not benefited from PHYSICAL THERAPY over all. Also she now has pain on both sides. Past medical history, appointments, medications, allergies reviewed. Previous Medical History PAST MEDICAL HISTORY Diagnosis Date Acquired hypothyroidism 11/29/2005 Bilateral carotid artery stenosis 07/13/2021 US: 06/2021: Stephen 20-40% 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, right (HCC) 10/05/2017 Cataracts, bilateral 12/20/2016 Some relation to steroids with her asthma. 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 RSD (reflex sympathetic dystrophy) Sebaceous cyst 01/20/2014 Spinal stenosis, unspecified region other than cervical 03/02/2006 Trigger ring finger of right hand 06/23/2014 Vitamin D deficiency 09/15/2019 Previous Surgical History PAST SURGICAL HISTORY Procedure Laterality Date ADENOIDECTOMY PRIMARY <AGE 14 Adenoidectomy BREAST BIOPSY CORE 04/11/2011 right breast 2:00, 4:00 and 10:00 BREAST BIOPSY INCISIONAL 14 years ago right and left breast- benign BREAST RECONSTRUC W FREE FLAP 12/13/2012 bilateral breast BREAST RECONSTRUC W TISS EXPANDR 05/25/2011 right breast with elevation of the serratus flap CARDIAC CATH 03/20/2017 normal, by Dr. Colvin COLONOSCOPY FLX DX W/COLLJ SPEC WHEN PFRMD 04/08/2007 COLONOSCOPY FLX DX W/COLLJ SPEC WHEN PFRMD N/A 09/06/2016 MAC COLONOSCOPY FLX DX W/COLLJ SPEC WHEN PFRMD 02/10/2019 Colonoscopy INSJ TUNNELED CTR VAD W/SUBQ PORT AGE 5 YR/> 07/06/2011 left IJ MASTECTOMY, SIMPLE, COMPLETE 05/25/2011 right breast skin-sparing with SLND/level 1 LND MASTECTOMY, SIMPLE, COMPLETE 12/13/2012 prophylactic left breast PAST SURGICAL HISTORY OF squamous cell skin ca nose, lips, face PAST SURGICAL HISTORY OF 1972 removal of sweat glands (bilateral axilla (right x 2)and groin) PAST SURGICAL HISTORY OF 03/06/2016 removal of polyp at [facility] [employer] COVID-19 VACCINE, AGE 12+ YR (PURPLE TOP) 09/11/2020 first vaccine REM LESION TRUNK,ARM, LEG <0.5 CM 01/24/2014 Exc. 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 01/18/2012 Removal left IJ port RPR COMPLEX RETINA DETACH VITRECT &MEMBRANE PEEL 09/2014 left retina SIGMOIDOSCOPY FLX DX W/COLLJ SPEC BR/WA IF PFRMD 01/27/2002 Sigmoidoscopy TONSILLECTOMY PRIMARY/SECONDARY <AGE 14 Tonsillectomy Family History FAMILY HISTORY Problem Relation Age of Onset Breast Cancer Mother dx in her 50's other (uterine cancer) Mother dx before breast cancer Heart Father [place] Headache Sister other (other cances) Sister no known family h/o: ovarian; prostate, colon, pancreatic, lung, thyroid, brain, melenoma, leukemia, sarcomas other (rectal cancer) Paternal Grandmother 95 Breast Cancer Maternal Aunt 1) details unknown Breast Cancer Maternal Aunt 2) details unknown Patient Allergies ALLERGIES Allergen Reactions Typhoid Vaccine Intolerance Adhesive Tape (Haley* Other: See Comments after 2 days area becomes red and itches Cats Intolerance Diclofenac Other: See Comments elevated liver enz Dogs Intolerance Dust Intolerance Environmental [Othe* Other: See Comments sneezing Meloxicam Other: See Comments Swollen eyelids Mold Intolerance Tegretol [Carbamaze* Intolerance blood problem Current Medications Current Outpatient Medications on File Prior to Visit Medication Sig predniSONE (DELTASONE) 10 mg tablet Take 4 tabs daily for 3 days, then 2 tabs daily for 3 days, then 1 tab daily for 3 days with food. fluticasone-salmeterol (ADVAIR, WIXELA) 250-50 mcg/dose inhaler Inhale 1 Puff as instructed twice daily. amitriptyline (ELAVIL) 25 mg tablet Take 2 tablets by mouth daily at bedtime. atorvastatin (LIPITOR) 40 mg tablet Take 1 tablet by mouth once daily. levothyroxine (SYNTHROID) 100 mcg tablet Take 1 tablet by mouth daily before breakfast. pioglitazone (ACTOS) 15 mg tablet Take 1 tablet by mouth once daily. VENTOLIN HFA 90 mcg/actuation inhaler Inhale 2 Puffs as instructed every 4 hours as needed for wheezing/shortness of breath. albuterol (PROVENTIL) 2.5 mg /3 mL (0.083 %) nebulizer solution inhale 3 milliliters in nebulizer every 4 hours if needed for wheezing /SHORTNESS OF BREATH. USE OVER 5 -15 MINUTES sertraline (ZOLOFT) 50 mg tablet 1/2 a tablet by mouth once a day for 10 days then go to one tablet daily aspirin, enteric coated (ASPIRIN, ENTERIC COATED) 81 mg EC tablet Take 1 tablet by mouth once daily. ergocalciferol 50,000 unit capsule (VITAMIN D2, DRISDOL) Take 1 capsule by mouth one time a week. (Patient taking differently: Take 50,000 Units by mouth. takes every 2 weeks) clobetasol (TEMOVATE) 0.05 % ointment Apply 1 application to affected area twice daily. TO AFFECTED AREA for 2 weeks. COMPOUNDED PRESCRIPTION NEBULIZER and supplies FOR HOME USE. DX: J45.30, J45.90. Length of need is life. This is a medically necessary devise for management of patients lung disease. Current machine recently stopped working. While trying to use it started to smoke and stopped. No current facility-administered medications on file prior to visit. Social History Social History Tobacco Use Smoking status: Former Packs/day: 2.00 Years: 12.00 Pack years: 24.00 Types: Cigarettes Quit date: 06/25/1981 Years since quittin.7 Smokeless tobacco: Never Vaping Use Vaping Use: Never used Substance Use Topics Alcohol use: Yes Comment: wine with meals Drug use: No Review of Symptoms REVIEW OF SYSTEMS See HPI EXAM: BP 138/80 (BP Site: Left Arm, BP Position: Sitting, BP Cuff Size: Large Adult) Pulse 72 Resp 16 Wt 97.1 kg (214 lb) LMP 01/06/2009 BMI 33.20 kg/m Last 5 Encounter Wt Readings: Date: Wt: 03/03/2022 97.1 kg (214 lb) 02/22/2022 98.4 kg (217 lb) 01/04/2022 99.8 kg (220 lb) 11/08/2021 100.2 kg (221 lb) 11/02/2021 100.2 kg (221 lb) General Appearance: Well appearing, alert, in no acute distress, well-hydrated, well nourished.. Musculoskeletal: Spine range of motion normal. Muscular strength intact, No joint swelling, deformity, or tenderness. With rotation to the left against resistance she has pain in the left side of the neck. Axial compression test was negative on both sides for pain or radicular symptoms. Peripheral Pulses: Normal. Neurologic: Gait normal. Reflexes normal and symmetric in the upper extremities at the elbows and wrists.. Sensation to light touch symmetrical and intact in the upper extremities. .. Health Maintenance List INFLUENZA(1) due on 02/23/2022 COVID-19 VACCINE(5 - Booster for Pfizer series) due on 03/08/2022 ANNUAL PCP TEAM CHRONIC DISEASE VISIT due on 01/04/2023 DEPRESSION SCREENING due on 01/04/2023 COLORECTAL CANCER SCREENING due on 02/11/2024 DIABETES SCREEN due on 12/30/2024 LIPID SCREEN due on 12/30/2026 DTAP,TDAP,TD(4 - Td or Tdap) due on 06/10/2030 BONE DENSITY Completed ADVANCE DIRECTIVE DISCUSSION Completed HEPATITIS C SCREENING Completed SHINGRIX VACCINE Completed PNEUMOCOCCAL: 65+ Completed MAMMOGRAM Discontinued SPIROMETRY Discontinued Data reviewed 08/30/2021 3:01 PM - Radiology, [place] In Impression IMPRESSION: Mild supratentorial microvascular ischemic changes. Otherwise normal brain. No evidence of an acute intracranial process. No significant stenosis in either carotid bifurcation by NASCET criteria. Patent cervical vertebral arteries. Mild stenosis in the proximal cervical right vertebral artery. Mild distal left vertebral artery stenosis. Otherwise no evidence of significant large vessel intracranial occlusive disease. Arterial blood flow was measured to detect acute large vessel occlusion by computer aided detection software: Not Performed. Concordance between software and imaging review: Not Applicable. Photographs Curator: PSCB Transcribe Date/Time: Aug 30 2021 1:55P Dictated by : BALA CEBALLOS MD This examination was interpreted and the report reviewed and electronically signed by: BALA CEBALLOS MD on Aug 30 2021 2:58PM EST Results-Findings * * *Final Report* * * DATE OF EXAM: Aug 30 2021 1:43PM [facility] 0024 - CTA NECK W IVCON / PROCEDURE REASON: multiple diagnoses * * * * Physician Interpretation * * * * EXAMINATION: CTA HEAD WO/W IVCON, CTA NECK W IVCON HISTORY: Hypothyroidism, breast cancer, mixed hyperlipidemia and dizziness. TECHNIQUE: Routine CT of the brain without IV contrast. Next, high resolution axial images were obtained through the head, neck and superior mediastinum following bolus administration of intravenous contrast for CT angiography. 3D maximum intensity projection images were created, reviewed and archived . MQ: [id number] Contrast: 80 mL Omnipaque [address] Radiation dose: Integrated Dose-Length Product (DLP) for this visit = 1516 mGy*cm. CT Dose Reduction Employed: Automated exposure control(AEC) and iterative recon COMPARISON: 07/15/2021. RESULT: BRAIN: Acute change: No evidence of an acute infarct or other acute parenchymal process. ASPECT Score = 10 Hemorrhage: No evidence of acute intracranial hemorrhage. ECASS hemorrhagic transformation score: Not Applicable Mass Lesion / Mass Effect: There is no evidence of an intracranial mass or extra-axial fluid collection. No significant mass effect. Chronic change: A few subtle patchy foci of low attenuation are noted in the supratentorial white matter which are nonspecific but likely represent mild microvascular ischemia in view of the patient's chronologic age. Parenchyma: There is no significant volume loss. The brain parenchyma is otherwise within normal limits for age. Ventricles: The ventricles are within normal limits of size and configuration for age. Other: Incidentally noted is prior right cataract surgery. NECK: Soft tissues: The soft tissue planes are maintained throughout. No evidence of a soft tissue mass in the neck or superior mediastinum. No significant lymphadenopathy is seen. Spine: Alignment is normal. Mild degenerative changes are present. Lung apices: The visualized lung apices are clear. CT ARTERIOGRAM: Extracranial Circulation: Aortic Arch: There is a normal branching pattern from the aortic arch.. There is no significant stenosis in the proximal brachiocephalic vessels. Carotid Stenosis: Right Common: No significant stenosis. Right Internal Carotid Plaque: Small focal eccentric calcified plaque in the proximal right ICA. Right Internal Carotid Stenosis (% by NASCET Criteria): 21 Left Common: No significant stenosis. Left Internal Carotid Plaque: Small eccentric calcified plaques in the LICA origin and proximal LICA Left Internal Carotid Stenosis (% by NASCET Criteria): 0 Cervical Vertebral Arteries: Patency: Bilateral Dominance: Right. Short segment mild stenosis in the proximal right V1 segment Intracranial Circulation: Spot Sign Presence: Not Applicable Spot Sign Number: Not Applicable Anterior Circulation: Distal ICAs are patent. Minimal calcified plaque is noted in the right carotid siphon without significant luminal narrowing. Proximal ACAs and MCAs are patent. A1 segments are essentially codominant. No evidence of focal significant stenosis, intraluminal filling defect, abrupt vessel occlusion, or aneurysm in the anterior intracranial circulation. Vertebrobasilar Circulation: The distal vertebral arteries are patent. Left vertebral artery is dominant. Long segment mild smooth stenosis is noted in the proximal V4 segments of the left vertebral artery. No significant stenosis in the distal right vertebral or basilar arteries. The proximal PICAs, right AICA and both SCA's are patent. Each PCOM is patent but the left PCOM is diminutive in caliber. Proximal business representative are patent and within normal limits of caliber and configuration. There is uniform enhancement of the superior sagittal, inferior sagittal, straight, and both transverse and both sigmoid sinuses. Customs Appraiser (topogram) images: No additional findings. 11/08/2021 11:38 AM - Radiology, [facility] In Impression IMPRESSION: Degenerative changes as detailed in report. Photographs Curator: PSCB Transcribe Date/Time: Nov 08 2021 11:33A Dictated by : ELIZ TOLEDO MD This examination was interpreted and the report reviewed and electronically signed by: ELIZ TOLEDO MD on Nov 08 2021 11:35AM EST Results-Findings * * *Final Report* * * DATE OF EXAM: Nov 08 2021 10:09AM [facility] [id number] - XR CERVICAL 4V AP/LAT/OBL / PROCEDURE REASON: Neck pain * * * * Physician Interpretation * * * * EXAMINATION: XR CERVICAL 4V AP/LAT/OBL HISTORY: Neck pain in upper cervical region on both sides for a month. Negative injury. TECHNIQUE: XR CERVICAL 4V AP/LAT/OBL Laterality: NOT APPLICABLE Number of different views (projections): 4 M: XB_1 COMPARISON: Comparison is made to prior cervical spine dated 01/20/2011 RESULT: 4 views of the cervical spine demonstrate multilevel degenerative change with vertebral body osteophytosis and disc space narrowing, greatest at C5-6, C6-7 and C7-T1. There are no vertebral body compression deformities and alignment is well maintained. Bilateral obliques demonstrate moderate to severe foraminal narrowing bilaterally from C3 through T1. The atlantoaxial interval and craniocervical junction are intact. There is no prevertebral soft tissue abnormality. A/P ASSESSMENT/PLAN: 1. Cervicalgia - ICD9: 723.1, ICD10: M54.2 Patient has had over 6-8 weeks of PHYSICAL THERAPY with no improvement and now has pain on both sides of neck. Need to eval central canal and discs. Cervical x-ray showed foraminal stenosis and MRI would also provide more detailed info. Need to determine if surgical issue or next step being pain management. Check - MRI CERVICAL SPINE WO RIKKI Wilkins MD documented in this encounter [facility] 02-22-2022 Instructions Liam Gonzales APRN.[facility] - 02/22/2022 7:42 AM EDT [facility] PATIENT INFO POISON RAMONA INTRODUCTION When the skin comes in direct contact with an irritating or allergy-causing substance, contact dermatitis can develop. Exposure to poison ramona, poison oak, and poison sumac cause more cases of allergic contact dermatitis than all other plant families combined. People of all ethnicities and skin types are at risk for developing poison ramona dermatitis. The severity of the reaction tends to decrease with age, especially in people who have had mild reactions in the past. People in occupations such as firefighting, forestry, and farming are at a higher risk of poison ramona dermatitis because of repeated exposure to toxic plants. POISON RAMONA CAUSES Poison ramona, poison oak, and poison sumac plants all contain a compound called urushiol, which is a light, colorless oil that is found on the fruit, leaves, stem, root, and sap of the plant. When urushiol is exposed to air, it turns brown and the plant leaves develop small black spots. There are several ways that you can be exposed to urushiol: By touching the sap or rubbing against the leaves of the toxic plant By touching something that has urushiol on it, such as animal fur or garden tools By breathing in smoke when toxic plants are burned Ginkgo fruit and the skin of mangoes also contain urushiol and can produce symptoms similar to poison ramona dermatitis. IDENTIFYING POISON RAMONA Leaves of three, let them be is a phrase often used to identify plants that cause poison ramona dermatitis. Generally, poison ramona and poison oak have three leaves with flowering branches on a single stem. Poison sumac has five, seven, or more leaves that angle upward toward the top of the stem. Some types of poison ramona produce a green or off-white fruit in deidra, and in some cases, black dots form on the plants' leaves. It is not always possible to identify the plant by the leaves alone since the appearance can vary depending upon the season, growth cycle, region, and climate. Poison ramona, oak, and sumac plants grow in many areas across the [facility] and throughout the world. [place] of the [facility], poison ramona commonly grows as a climbing vine. In the [place] area and west, poison ramona tends to grow low to the ground as a shrub. Poison oak most often grows west of the [facility], and poison sumac inhabits boggy areas in the southeastern part of the [facility]. The plants are not usually found in areas at high elevations or in desert climates. POISON RAMONA SIGNS AND SYMPTOMS After contact with urushiol, approximately 50 percent of people develop signs and symptoms of poison ramona dermatitis. The symptoms and severity differ from person to person. The most common signs and symptoms of poison ramona dermatitis are: Intense itching Skin swelling Skin redness These symptoms usually develop within four hours to four days after exposure to the urushiol. After the initial symptoms, you will develop fluid-filled blisters in a line or streak-like pattern. The symptoms are worst within 1 to 14 days after touching the plant, but can develop up to 21 days later if you have never been exposed to urushiol before. The blisters can occur at different times in different people; blisters can develop on the arms several days after blisters on the hands developed. This does not mean that the reaction is spreading from one area of the body to the other. The fluid that leaks from blisters does not cause symptoms. Poison ramona dermatitis is not contagious and cannot be passed from person to person. However, urushiol can be carried under fingernails and on clothes; if another person comes in contact with the urushiol, they can develop poison ramona dermatitis. POISON RAMONA DIAGNOSIS Poison ramona is usually diagnosed based upon how your skin looks. Further testing is not usually necessary. POISON RAMONA TREATMENT Poison ramona dermatitis usually resolves within one to three weeks without treatment. Treatments that may help relieve the itching, soreness, and discomfort caused by poison ramona dermatitis include: Skin treatments -- For some people, adding oatmeal to a bath, applying cool wet compresses, and applying calamine lotion may help to relieve itching. Once the blisters begin weeping fluid, astringents containing aluminum acetate (Tyler's solution) and Domeboro may help to relieve the rash. Antihistamines -- Antihistamines may help to relieve itching caused by poison ramona dermatitis. Some antihistamines make you sleepy while others do not. Antihistamines that make you sleepy (eg, diphenhydramine [Benadryl ]) may be helpful if you have trouble sleeping due to itching. Other formulas (eg, loratadine [Claritin ], cetirizine [Zyrtec ]) may be preferable for daytime. Steroid creams -- Steroid creams may be helpful if they are used during the first few days after symptoms develop. Low potency steroid creams, such as 1 percent hydrocortisone (available in the [place] without prescription) are not usually helpful. A stronger prescription formula may be helpful. Steroids -- If you develop severe symptoms or the rash covers a large area (especially on the face or genitals), you may need steroid pills or injections (eg, prednisone) to help relieve itching and swelling. Pills are usually given for 14 to 21 days, with the dosage slowly decreased over time. Antibiotics -- Skin infections are a potential complication of poison ramona, especially if you scratch your skin. If you develop a skin infection because of poison ramona dermatitis, you may need antibiotics to treat the infection. Other treatments -- An herbal therapy called jewelweed extract has been used to treat poison ramona dermatitis, although it has not been proven effective. You should not use antihistamine creams or lotions, anesthetic creams containing benzocaine, or antibiotic creams containing neomycin or bacitracin to the skin. These creams or ointments could make the rash worse. POISON RAMONA PREVENTION The best way to prevent poison ramona dermatitis is to identify and avoid the plants that cause it. These plants can irritate the skin year round, even during the winter months, and can still cause a reaction years after the plant dies. Wear protective clothing, including long sleeves and pants when working in areas where toxic plants may be found. Keep in mind that the resin and oils from the toxic plants can be carried on clothing, pets, and under fingernails. Wear heavy-duty vinyl gloves when doing yard work or gardening. The oils from toxic plants can seep through latex or rubber gloves. After coming in contact with poison ramona, remove any contaminated clothing and gently wash (do not scrub or rub) you skin and under the fingernails with mild soap and water as soon as possible. Washing within two hours after exposure can reduce the likelihood and severity of symptoms; washing the skin after you have symptoms will not help. Creams and ointments that create a barrier between the skin and the urushiol oil may be somewhat effective for people who are frequently exposed to poison ramona. Bentoquatam (Ramona Block ) is one type of barrier cream that may prevent poison ramona dermatitis. It must be reapplied every four hours and it leaves a manoj residue on the skin. Avoid burning poisonous vegetation, which can disperse the plant particles in the smoke, irritate the skin, and cause poison ramona dermatitis. documented in this encounter [facility] 02-22-2022 History of Present illness Narrative Images from the original note were not included. Subjective HPI Nontoxic-appearing female presents urgent care chief complaint rash and itching. Duration of symptoms 2 weeks. Associated symptoms pruritic erythematous rash. Patient states first noticed this on her right arm has since spread to the left arm and face in the side. Patient states she has been doing a lot of gardening over the last few weeks and was in contact with poison ramona. Has not use any OTC medications. Has had poison in the past this feels similar. Denies any recent lifestyle or medication changes. No recent antibiotic use. Denies any pain. Denies any fever body aches chills nausea vomiting abdominal pain change in bowel or bladder habits. Past medical history prescription medication use allergies reviewed. .Patient presents with: Rash: itching x 2 weeks PAST MEDICAL HISTORY Diagnosis Date Acquired hypothyroidism 11/29/2005 Bilateral carotid artery stenosis 07/13/2021 [place]: 06/2021: Stephen 20-40% 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, right (HCC) 10/05/2017 Cataracts, bilateral 12/20/2016 Some relation to steroids with her asthma. 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 RSD (reflex sympathetic dystrophy) Sebaceous cyst 01/20/2014 Spinal stenosis, unspecified region other than cervical 03/02/2006 Trigger ring finger of right hand 06/23/2014 Vitamin D deficiency 09/15/2019 PAST SURGICAL HISTORY Procedure Laterality Date ADENOIDECTOMY PRIMARY <AGE 12 Adenoidectomy BREAST BIOPSY CORE 04/11/2011 right breast 2:00, 4:00 and 10:00 BREAST BIOPSY INCISIONAL 14 years ago right and left breast- benign BREAST RECONSTRUC W FREE FLAP 12/13/2012 bilateral breast BREAST RECONSTRUC W TISS EXPANDR 05/25/2011 right breast with elevation of the serratus flap CARDIAC CATH 03/20/2017 normal, by Dr. Colvin COLONOSCOPY FLX DX W/COLLJ SPEC WHEN PFRMD 04/08/2007 COLONOSCOPY FLX DX W/COLLJ SPEC WHEN PFRMD N/A 09/06/2016 MAC COLONOSCOPY FLX DX W/COLLJ SPEC WHEN PFRMD 02/10/2019 Colonoscopy INSJ TUNNELED CTR VAD W/SUBQ PORT AGE 5 YR/> 07/06/2011 left IJ MASTECTOMY, SIMPLE, COMPLETE 05/25/2011 right breast skin-sparing with SLND/level 1 LND MASTECTOMY, SIMPLE, COMPLETE 12/13/2012 prophylactic left breast PAST SURGICAL HISTORY OF squamous cell skin ca nose, lips, face PAST SURGICAL HISTORY OF 1972 removal of sweat glands (bilateral axilla (right x 2)and groin) PAST SURGICAL HISTORY OF 03/06/2016 removal of polyp at [facility] COVID-19 VACCINE, AGE 12+ YR (PURPLE TOP) 09/11/2020 first vaccine REM LESION TRUNK,ARM, LEG <0.5 CM 01/24/2014 Exc. 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 01/18/2012 Removal left IJ port RPR COMPLEX RETINA DETACH VITRECT &MEMBRANE PEEL 09/2014 left retina SIGMOIDOSCOPY FLX DX W/COLLJ SPEC BR/WA IF PFRMD 01/27/2002 Sigmoidoscopy TONSILLECTOMY PRIMARY/SECONDARY <AGE 12 Tonsillectomy ALLERGIES Typhoid Vaccine, Adhesive Tape (Rosins), Cats, Diclofenac, Dogs, Dust, Environmental [Other], Meloxicam, Mold, and Tegretol [Carbamazepine Analogues] MEDICATIONS fluticasone-salmeterol (ADVAIR, WIXELA) 250-50 mcg/dose inhaler Inhale 1 Puff as instructed twice daily. amitriptyline (ELAVIL) 25 mg tablet Take 2 tablets by mouth daily at bedtime. atorvastatin (LIPITOR) 40 mg tablet Take 1 tablet by mouth once daily. levothyroxine (SYNTHROID) 100 mcg tablet Take 1 tablet by mouth daily before breakfast. pioglitazone (ACTOS) 15 mg tablet Take 1 tablet by mouth once daily. VENTOLIN HFA 90 mcg/actuation inhaler Inhale 2 Puffs as instructed every 4 hours as needed for wheezing/shortness of breath. albuterol (PROVENTIL) 2.5 mg /3 mL (0.083 %) nebulizer solution inhale 3 milliliters in nebulizer every 4 hours if needed for wheezing /SHORTNESS OF BREATH. USE OVER 5 -15 MINUTES sertraline (ZOLOFT) 50 mg tablet 1/2 a tablet by mouth once a day for 10 days then go to one tablet daily aspirin, enteric coated (ASPIRIN, ENTERIC COATED) 81 mg EC tablet Take 1 tablet by mouth once daily. ergocalciferol 50,000 unit capsule (VITAMIN D2, DRISDOL) Take 1 capsule by mouth one time a week. (Patient taking differently: Take 50,000 Units by mouth. takes every 2 weeks) clobetasol (TEMOVATE) 0.05 % ointment Apply 1 application to affected area twice daily. TO AFFECTED AREA for 2 weeks. COMPOUNDED PRESCRIPTION NEBULIZER and supplies FOR HOME USE. DX: J45.30, J45.90. Length of need is life. This is a medically necessary devise for management of patients lung disease. Current machine recently stopped working. While trying to use it started to smoke and stopped. FAMILY HISTORY Problem Relation Age of Onset Breast Cancer Mother dx in her 50's other (uterine cancer) Mother dx before breast cancer Heart Father [place] Headache Sister other (other cances) Sister no known family h/o: ovarian; prostate, colon, pancreatic, lung, thyroid, brain, melenoma, leukemia, sarcomas other (rectal cancer) Paternal Grandmother 95 Breast Cancer Maternal Aunt 1) details unknown Breast Cancer Maternal Aunt 2) details unknown Social History Tobacco Use Smoking status: Former Packs/day: 2.00 Years: 12.00 Pack years: 24.00 Types: Cigarettes Quit date: 06/25/1981 Years since quittin.6 Smokeless tobacco: Never Vaping Use Vaping Use: Never used Substance Use Topics Alcohol use: Yes Comment: wine with meals Drug use: No BP 122/80 Pulse 90 Temp 36.1 C (96.9 F) Resp 16 Wt 98.4 kg (217 lb) LMP 01/06/2009 SpO2 97% BMI 33.66 kg/m Review of Systems Constitutional: Negative for chills, fever and malaise/fatigue. HENT: Negative for congestion, ear discharge, ear pain, sinus pain and sore throat. Eyes: Negative for blurred vision, pain, discharge and redness. Respiratory: Negative for cough, hemoptysis, sputum production, shortness of breath, wheezing and stridor. Cardiovascular: Negative for chest pain. Gastrointestinal: Negative for abdominal pain, diarrhea, nausea and vomiting. Musculoskeletal: Negative for myalgias. Skin: Positive for itching and rash. Neurological: Negative for dizziness and headaches. Objective Physical Exam Constitutional: General: She is not in acute distress. Appearance: She is not diaphoretic. HENT: Head: Normocephalic. Mouth/Throat: Mouth: Mucous membranes are moist. Pharynx: Oropharynx is clear. No oropharyngeal exudate or posterior oropharyngeal erythema. Eyes: Conjunctiva/sclera: Conjunctivae normal. Pupils: Pupils are equal, round, and reactive to light. Cardiovascular: Rate and Rhythm: Normal rate and regular rhythm. Heart sounds: Normal heart sounds. Pulmonary: Effort: Pulmonary effort is normal. No tachypnea, accessory muscle usage or respiratory distress. Breath sounds: Normal breath sounds. No stridor. Abdominal: Palpations: Abdomen is soft. Tenderness: There is no abdominal tenderness. Musculoskeletal: Cervical back: Normal range of motion and neck supple. No rigidity or tenderness. Lymphadenopathy: Cervical: No cervical adenopathy. Skin: General: Skin is warm and dry. Comments: Maculopapular rash fluid-filled vesicles linear pattern noted. No mucosal membrane involvement. No desquamation of skin. Neurological: Mental Status: She is alert and oriented to person, place, and time. .ASSESSMENT/PLAN: 1. Rash - ICD9: 782.1, ICD10: R21 Patient diagnosis rash. Suspicious of contact dermatitis. Will be placed on prednisone taper. Will not use with NSAIDs. Patient was educated on supportive therapies. Patient will follow up with primary care provider as needed. Patient was instructed to immediately proceed to emergency room for any new, worsening, or symptoms lasting longer than anticipated. The patient's clinical presentation is otherwise unremarkable at this time. Based on exam and clinical finding, the patient is stable for discharge. Plan of care was discussed with patient. Patient verbalizes understanding and agrees to plan of care. This note was generated using [employer] software. It may contain errors in wording, punctuation, or spelling. Liam Gonzales APRN.[facility] documented in this encounter [facility] 02-10-2022 Miscellaneous Notes Patient has been identified by name and date of : Yes Requested Prescriptions Pending Prescriptions Disp Refills fluticasone-salmeterol (ADVAIR, WIXELA) 250-50 mcg/dose inhaler 3 Each 1 Sig: Inhale 1 Puff as instructed twice daily. RX INSTRUCTIONS: Patient aware RX will be sent to pharmacy. No need to notify patient. Geovanna Crum documented in this encounter [facility] 02-10-2022 History of Present illness Narrative Episode Visit Count: 10 Therapist That Will Oversee The Plan Of Care: Alex Mendenhall Start of Care Date: 11/10/21 Onset Date: 10/11/21 REHABILITATION AND SPORTS THERAPY PHYSICAL THERAPY TREATMENT NOTE ASSESSMENT: Montserrat Aguayo tolerated the session with decreased symptoms and no issues. She demonstrated improvements in neck range of motion and decreasing pain. The patient will continue to benefit from ongoing skilled physical therapy to progress toward set goals. PLAN FOR NEXT VISIT: SUBJECTIVE: Patient Reason for Visit: Overall pt continues to be better, not sure if she has plateaued or still improving Pain: Pain Pain Level: 3 Pain Location: Head - Left Description: Aching;Sore Frequency: Intermittent OBJECTIVE MEASURES WITH LEVEL OF FUNCTION: Spine Observations L Cervical Spine Palpation Tenderness: Sternocleidomastoid;Upper trapezius;Suboccipitals Cervical Spine ROM Cervical ROM : Measurement AROM Cervical Side-Bend Left AROM (degrees) : 54 Degrees Cervical Rotation Right AROM (degrees) : 58 Degrees TREATMENT: Manual Therapy: 1: STM to B SCM, upper traps, cervical paraspinals 2: Manual cervical traction x15 min 3: B upper trap stripping x5 min/side 4: Suboccipital release multiple spots bilaterally Skilled Intervention: Manual skills to improve joint mobility, ROM, and decrease pain. Utilized anatomy knowledge of the therapist, and assessment of patient's response to intervention. Billing Manual TherapyTreatment Minutes: 42 Total Treatment Time Minutes (timed/untimed): 42 Alex Mendenhall PT documented in this encounter [facility] 01-18-2022 History of Present illness Narrative Episode Visit Count: 8 Therapist That Will Oversee The Plan Of Care: Alex Mendenhall Start of Care Date: 11/10/21 Onset Date: 10/11/21 REHABILITATION AND SPORTS THERAPY PHYSICAL THERAPY TREATMENT NOTE ASSESSMENT: Montserrat Aguayo tolerated the session with decreased symptoms. She demonstrated improvements in neck pain and range of motion. The patient will continue to benefit from ongoing skilled physical therapy to progress toward set goals. PLAN FOR NEXT VISIT: Needling prn, continue with manual SUBJECTIVE: Patient Reason for Visit: Pt did better after the needling last session. Still notes some pain, but higher up in the neck now Pain: Pain Pain Level: 3 Pain Location: Head - Left Description: Aching;Sore Frequency: Intermittent OBJECTIVE MEASURES WITH LEVEL OF FUNCTION: Suboccipitals and SCM reproduce headache TREATMENT: Manual Therapy: 1: STM to B SCM, upper traps, cervical paraspinals 2: Manual cervical traction x15 min 3: B upper trap stripping x5 min/side 4: C1 rotation mobs to the left x10 5: Suboccipital release multiple spots bilaterally Skilled Intervention: Manual skills to improve joint mobility, ROM, and decrease pain. Utilized anatomy knowledge of the therapist, and assessment of patient's response to intervention. Billing Manual TherapyTreatment Minutes: 40 Total Treatment Time Minutes (timed/untimed): 40 Alex Mendenhall PT documented in this encounter [facility] 01-10-2022 History of Present illness Narrative Episode Visit Count: 7 Therapist That Will Oversee The Plan Of Care: Alex Mendenhall Start of Care Date: 11/10/21 Onset Date: 10/11/21 REHABILITATION AND SPORTS THERAPY PHYSICAL THERAPY TREATMENT NOTE ASSESSMENT: Montserrat Aguayo tolerated the session with decreased symptoms and no issues. She demonstrated improvements in L sided neck pain with addition of dry needling today. The patient will continue to benefit from ongoing skilled physical therapy to progress toward set goals. PLAN FOR NEXT VISIT: needling per symptoms, possibly suboccipitals SUBJECTIVE: Patient Reason for Visit: Pt still has pain, but feels exercises are helping. She feels different muscles now compared to when she started Pain: Pain Pain Level: 4 Pain Location: Neck Description: Aching;Sore;Tightness Frequency: Intermittent OBJECTIVE MEASURES WITH LEVEL OF FUNCTION: L sided upper trap trigger point noted TREATMENT: Manual Therapy: 1: STM to B levators, upper traps, cervical paraspinals 2: Manual cervical traction x10 min 3: B upper trap stripping x5 min/side 4: C1 rotation mobs to the left x10 5: Suboccipital release multiple spots bilaterally Dry Needling: (1) 40 mm needle to L upper trap with pistoning and fanning Skilled Intervention: Manual skills to improve joint mobility, ROM, and decrease pain. Utilized anatomy knowledge of the therapist, and assessment of patient's response to intervention. Billing Manual TherapyTreatment Minutes: 40 Total Treatment Time Minutes (timed/untimed): 40 Alex Mendenhall PT documented in this encounter [facility] 01-04-2022 Instructions Liam Wilkins MD - 01/04/2022 11:11 AM EDT Please get labs and urine test done on or after 06/23/2022 prior to your next visit. documented in this encounter [facility] 01-04-2022 History of Present illness Narrative Chief Complaint Patient presents with: F/U 6 months HPI Montserrat Aguayo is a 71 year old female who presents here today for 6 month follow up. Patient with hx of Hypothyroidism, elevated A1c, GERD, hyperlipidemia, RSD, Vit D def, mild persistent asthma, Hx of breast cancer on the right side, obisity as well as those reviewed and addressed below Patient has been doing ok. Diet has not been as good as of late but plans on changing this. Patient is doing PHYSICAL THERAPY for her neck pain. Seems to be improving. Past medical history, appointments, medications, allergies reviewed. Previous Medical History PAST MEDICAL HISTORY Diagnosis Date Acquired hypothyroidism 11/29/2005 Bilateral carotid artery stenosis 07/13/2021 US: 06/2021: Stephen 20-40% 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, right (HCC) 10/05/2017 Cataracts, bilateral 12/20/2016 Some relation to steroids with her asthma. Cervicalgia 01/27/2011 Class 1 obesity due to excess calories without serious comorbidity with body mass index (BMI) of 33.0 to 33.9 in adult 12/31/2017 Diverticulosis of large intestine Elevated hemoglobin A1c 09/10/2017 Ex-smoker Fatty liver 04/19/2016 Ganglion and cyst of synovium, tendon and bursa 06/23/2014 Gastroesophageal reflux disease without esophagitis 08/21/2016 Hidradenitis History of colonic polyps 01/06/2019 History of detached retina repair 12/20/2016 left History of skin cancer Face and lips - SCCIS Internal hemorrhoids without mention of complication Irritable bowel syndrome with both constipation and diarrhea 07/28/2020 Mass of left lower leg 07/03/2018 Benign w/u Metabolic syndrome 04/19/2016 Mild persistent asthma 09/07/2011 Mitral valve disorders(424.0) Mixed hyperlipidemia 11/29/2005 Neutropenia, drug-induced (HCC) 08/11/2011 Obesity Plantar fasciitis 11/24/2013 Primary insomnia 07/06/2021 Right-sided chest wall pain 10/05/2017 Secondary to breast cancer radiation. RSD (reflex sympathetic dystrophy) Sebaceous cyst 01/20/2014 Spinal stenosis, unspecified region other than cervical 03/02/2006 Trigger ring finger of right hand 06/23/2014 Vitamin D deficiency 09/15/2019 Previous Surgical History PAST SURGICAL HISTORY Procedure Laterality Date ADENOIDECTOMY PRIMARY <AGE 12 Adenoidectomy BREAST BIOPSY CORE 04/11/2011 right breast 2:00, 4:00 and 10:00 BREAST BIOPSY INCISIONAL 14 years ago right and left breast- benign BREAST RECONSTRUC W FREE FLAP 12/13/2012 bilateral breast BREAST RECONSTRUC W TISS EXPANDR 05/25/2011 right breast with elevation of the serratus flap CARDIAC CATH 03/20/2017 normal, by Dr. Colvin COLONOSCOPY FLX DX W/COLLJ SPEC WHEN PFRMD 04/08/2007 COLONOSCOPY FLX DX W/COLLJ SPEC WHEN PFRMD N/A 09/06/2016 MAC COLONOSCOPY FLX DX W/COLLJ SPEC WHEN PFRMD 02/10/2019 Colonoscopy INSJ TUNNELED CTR VAD W/SUBQ PORT AGE 5 YR/> 07/06/2011 left IJ MASTECTOMY, SIMPLE, COMPLETE 05/25/2011 right breast skin-sparing with SLND/level 1 LND MASTECTOMY, SIMPLE, COMPLETE 12/13/2012 prophylactic left breast PAST SURGICAL HISTORY OF squamous cell skin ca nose, lips, face PAST SURGICAL HISTORY OF 1972 removal of sweat glands (bilateral axilla (right x 2)and groin) PAST SURGICAL HISTORY OF 03/06/2016 removal of polyp at [facility] COVID-19 VACCINE, AGE 12+ YR (PURPLE TOP) 09/11/2020 first vaccine REM LESION TRUNK,ARM, LEG <0.5 CM 01/24/2014 Exc. 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 01/18/2012 Removal left IJ port RPR COMPLEX RETINA DETACH VITRECT &MEMBRANE PEEL 09/2014 left retina SIGMOIDOSCOPY FLX DX W/COLLJ SPEC BR/WA IF PFRMD 01/27/2002 Sigmoidoscopy TONSILLECTOMY PRIMARY/SECONDARY <AGE 12 Tonsillectomy Family History FAMILY HISTORY Problem Relation Age of Onset Breast Cancer Mother dx in her 50's other (uterine cancer) Mother dx before breast cancer Heart Father [place] Headache Sister other (other cances) Sister no known family h/o: ovarian; prostate, colon, pancreatic, lung, thyroid, brain, melenoma, leukemia, sarcomas other (rectal cancer) Paternal Grandmother 95 Breast Cancer Maternal Aunt 1) details unknown Breast Cancer Maternal Aunt 2) details unknown Patient Allergies ALLERGIES Allergen Reactions Typhoid Vaccine Intolerance Adhesive Tape (Haley* Other: See Comments after 2 days area becomes red and itches Cats Intolerance Diclofenac Other: See Comments elevated liver enz Dogs Intolerance Dust Intolerance Environmental [Othe* Other: See Comments sneezing Meloxicam Other: See Comments Swollen eyelids Mold Intolerance Tegretol [Carbamaze* Intolerance blood problem Current Medications Current Outpatient Medications on File Prior to Visit Medication Sig VENTOLIN HFA 90 mcg/actuation inhaler Inhale 2 Puffs as instructed every 4 hours as needed for wheezing/shortness of breath. albuterol (PROVENTIL) 2.5 mg /3 mL (0.083 %) nebulizer solution inhale 3 milliliters in nebulizer every 4 hours if needed for wheezing /SHORTNESS OF BREATH. USE OVER 5 -15 MINUTES letrozole (FEMARA) 2.5 mg tablet Take 1 tablet by mouth once daily. sertraline (ZOLOFT) 50 mg tablet 1/2 a tablet by mouth once a day for 10 days then go to one tablet daily cefADROxil (DURICEF) 500 mg capsule Take 1 capsule by mouth twice daily. aspirin, enteric coated (ASPIRIN, ENTERIC COATED) 81 mg EC tablet Take 1 tablet by mouth once daily. amitriptyline (ELAVIL) 25 mg tablet Take 2 tablets by mouth daily at bedtime. atorvastatin (LIPITOR) 40 mg tablet Take 1 tablet by mouth once daily. fluticasone-salmeterol (ADVAIR, WIXELA) 250-50 mcg/dose inhaler Inhale 1 Puff as instructed twice daily. levothyroxine (SYNTHROID) 100 mcg tablet Take 1 tablet by mouth daily before breakfast. pioglitazone (ACTOS) 15 mg tablet Take 1 tablet by mouth once daily. ergocalciferol 50,000 unit capsule (VITAMIN D2, DRISDOL) Take 1 capsule by mouth one time a week. (Patient taking differently: Take 50,000 Units by mouth. takes every 2 weeks ) clobetasol (TEMOVATE) 0.05 % ointment Apply 1 application to affected area twice daily. TO AFFECTED AREA for 2 weeks. psyllium (METAMUCIL) 3.4 gram packet Take 2 Packets by mouth once daily. calcipotriene (DOVONEX) 0.005 % oint Apply 1 application to affected area twice daily. For affected area on the lip. COMPOUNDED PRESCRIPTION NEBULIZER and supplies FOR HOME USE. DX: J45.30, J45.90. Length of need is life. This is a medically necessary devise for management of patients lung disease. Current machine recently stopped working. While trying to use it started to smoke and stopped. No current facility-administered medications on file prior to visit. Social History Social History Tobacco Use Smoking status: Former Smoker Packs/day: 2.00 Years: 12.00 Pack years: 24.00 Types: Cigarettes Quit date: 06/25/1981 Years since quittin.5 Smokeless tobacco: Never Used Vaping Use Vaping Use: Never used Substance Use Topics Alcohol use: Yes Comment: wine with meals Drug use: No Review of Symptoms REVIEW OF SYSTEMS GENERAL: No weight loss, malaise or fevers NECK: Negative for lumps, goiter, pain and significant neck swelling RESPIRATORY: Negative for cough, hemoptysis, wheezing, COPD, dyspnea or shortness of breath CARDIOVASCULAR: Negative for chest pain, leg swelling, hypertension, CHF or palpitations GI: No nausea, vomiting, or diarrhea and No heartburn or reflux symptoms MUSCULOSKELETAL: see HPI ENDOCRINE: Negative for cold or heat intolerance, polyuria, polydipsia and goiter NEURO: No history of headaches, syncope, paralysis, seizures or tremors EXAM: BP 126/76 (BP Site: Left Arm, BP Position: Sitting, BP Cuff Size: Large Adult) Pulse 68 Resp 16 Wt 99.8 kg (220 lb) LMP 01/06/2009 BMI 34.13 kg/m Last 4 Encounter Wt Readings: Date: Wt: 01/04/2022 99.8 kg (220 lb) 11/08/2021 100.2 kg (221 lb) 11/02/2021 100.2 kg (221 lb) 07/06/2021 101.2 kg (223 lb) General Appearance: Well appearing, alert, in no acute distress, well-hydrated, well nourished. and Obese. Neck: Supple, no adenopathy; thyroid symmetric, normal size, no bruits. Lungs: Lungs clear to auscultation. No wheezing, rhonchi, rales.. Heart: RRR without murmur, gallop, or rubs. No ectopy. Abdomen: Normal abdominal exam, Abdomen soft, non-tender. Bowel sounds normal. No masses, organomegaly. Extremities: No deformities, edema, skin discoloration, . Musculoskeletal: Muscular strength intact, No joint swelling, deformity, or tenderness. Peripheral Pulses: Normal. Neurologic: Gait normal. Sensation to light touch intact.. Health Maintenance List ADVANCE DIRECTIVE DISCUSSION Never done DEPRESSION SCREENING due on 12/15/2021 INFLUENZA(1) due on 02/23/2022 COVID-19 VACCINE(5 - Booster for Pfizer series) due on 03/08/2022 ANNUAL PCP TEAM CHRONIC DISEASE VISIT due on 11/08/2022 COLORECTAL CANCER SCREENING due on 02/11/2024 DIABETES SCREEN due on 12/30/2024 LIPID SCREEN due on 12/30/2026 DTAP,TDAP,TD(4 - Td or Tdap) due on 06/10/2030 BONE DENSITY Completed HEPATITIS C SCREENING Completed SHINGRIX VACCINE Completed PNEUMOCOCCAL: 65+ Completed MAMMOGRAM Discontinued SPIROMETRY Discontinued Data reviewed Component Latest Ref Rng & Units 07/04/2021 12/30/2021 Protein, Total 6.3 - 8.0 g/dL 6.9 Albumin 3.9 - 4.9 g/dL 4.6 Calcium 8.5 - 10.2 mg/dL 9.7 Bilirubin, Total 0.2 - 1.3 mg/dL 0.4 Alkaline Phosphatase 34 - 123 U/L 102 AST 13 - 35 U/L 26 Glucose 74 - 99 mg/dL 100 (H) BUN 7 - 21 mg/dL 8 Creatinine 0.58 - 0.96 mg/dL 0.83 Sodium 136 - 144 mmol/L 143 Potassium 3.7 - 5.1 mmol/L 4.6 Chloride 97 - 105 mmol/L 104 CO2 22 - 30 mmol/L 25 Anion Gap 9 - 18 mmol/L 14 ALT 7 - 38 U/L 21 eGFR- >60 eGFR-All Other Races . >60 Total Cholesterol, Nonfasting <200 mg/dL 176 204 (H) Triglycerides, Nonfasting <150 mg/dL 94 148 HDL Cholesterol, Nonfasting >39 mg/dL 63 63 LDL Cholesterol, Nonfasting <100 mg/dL 94 111 (H) Non HDL Cholesterol, Nonfasting <130 mg/dL 113 141 (H) VLDL Cholesterol, Nonfasting <30 mg/dL 19 30 (H) Total Chol/HDL Ratio, Nonfasting <5.10 mg/dL 2.79 3.24 LDL/HDL Ratio, Nonfasting <2.54 mg/dL 1.49 1.76 Hemoglobin A1C 4.3 - 5.6 % 5.9 (H) 5.9 (H) Estimated Average Glucose mg/dL 123 123 Vitamin D 25 Hydroxy 31.0 - 80.0 ng/mL 80.7 (H) 64.5 TSH 0.270 - 4.200 mIU/L 2.580 0.665 A/P ASSESSMENT/PLAN: 1. Mixed hyperlipidemia - ICD9: 272.2, ICD10: E78.2 (primary diagnosis) - good control - Encouraged following a low fat, low cholesterol diet. - Discussed the benefits of regular aerobic exercise and weight loss. - Encouraged following a low carbohydrate, healthy oil intake diet. - Continue current therapy. 2. Acquired hypothyroidism - ICD9: 244.9, ICD10: E03.9 - Instructed patient on importance of taking on an empty stomach either first thing in the morning or at bedtime. - continue current dose of Synthroid 3. Elevated hemoglobin A1c - ICD9: 790.29, ICD10: R73.09 - Stable no changes except continued dietary changes. 4. Gastroesophageal reflux disease without esophagitis - ICD9: 530.81, ICD10: K21.9 - Controlled with diet. 5. Mild persistent asthma without complication - ICD9: 493.90, ICD10: J45.30 Mild persistent Asthma stable - Continue current meds - Avoidance of triggers recommended 6. Bilateral carotid artery stenosis - ICD9: 433.10, 433.30, ICD10: I65.23 - Cont current Tx. 7. 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, right (HCC) - ICD9: 174.9, ICD10: C50.911 - Seeing oncology 8. Class 1 obesity due to excess calories without serious comorbidity with body mass index (BMI) of 33.0 to 33.9 in adult - ICD9: 278.00, V85.33, ICD10: E66.09, Z68.33 Stable - Behavioral intervention 9. Neutropenia, drug-induced (HCC) - ICD9: 288.03, E980.5, ICD10: D70.2 - Seeing oncology 10. RSD (reflex sympathetic dystrophy) - ICD9: 337.20, ICD10: G90.50 - Stable with Tx. 11. Vitamin D deficiency - ICD9: 268.9, ICD10: E55.9 - Cont replacement 12. Living will in place - ICD9: V49.89, ICD10: Z78.9 - Copies in chart 13. Advance directive discussed with patient - ICD9: V65.49, ICD10: Z71.89 - As per #12 14. Screening for osteoporosis - ICD9: V82.81, ICD10: Z13.820 Check - DXA-AXIAL SKELETON 15. Primary ovarian failure - ICD9: 256.39, ICD10: E28.39 Check - DXA-AXIAL SKELETON Signed Prescriptions Disp Refills amitriptyline (ELAVIL) 25 mg tablet 180 tablet 1 Sig: Take 2 tablets by mouth daily at bedtime. ISAAC: No atorvastatin (LIPITOR) 40 mg tablet 90 tablet 1 Sig: Take 1 tablet by mouth once daily. ISAAC: No levothyroxine (SYNTHROID) 100 mcg tablet 90 tablet 1 Sig: Take 1 tablet by mouth daily before breakfast. ISAAC: No pioglitazone (ACTOS) 15 mg tablet 90 tablet 1 Sig: Take 1 tablet by mouth once daily. ISAAC: No F/u 6 months extensive: Check CMP, Lipid, UA, A1c, CBC, TSH, Vit D. Liam Wilkins MD documented in this encounter [facility] 01-02-2022 History of Present illness Narrative Episode Visit Count: 6 Therapist That Will Oversee The Plan Of Care: Alex Mendenhall Start of Care Date: 11/10/21 Onset Date: 10/11/21 REHABILITATION AND SPORTS THERAPY PHYSICAL THERAPY TREATMENT NOTE ASSESSMENT: Montserrat Aguayo tolerated the session with decreased symptoms and no issues. She demonstrated improvements in neck pain and tolerance for activities and ADLs. The patient will continue to benefit from ongoing skilled physical therapy to progress toward set goals. PLAN FOR NEXT VISIT: May look at C1 further next session SUBJECTIVE: Patient Reason for Visit: Pt doing well, continues to feel things are progressing in the right direction. Has been planting grass, no issues from this. Also new pillow seems to be helping Pain: Pain Pain Level: 4 Pain Location: Neck Description: Aching;Sore Frequency: Intermittent OBJECTIVE MEASURES WITH LEVEL OF FUNCTION: Tenderness to L>R upper traps, levator TREATMENT: Manual Therapy: 1: STM to B levators, upper traps, cervical paraspinals 2: Manual cervical traction x7 min 3: B upper trap stripping x5 min/side 4: C1 rotation mobs to the left x10 5: Active cervical L rotation with pin and strethc to upper trap, levator, and suboccipitals x10 each Skilled Intervention: Manual skills to improve joint mobility, ROM, and decrease pain. Utilized anatomy knowledge of the therapist, and assessment of patient's response to intervention. Billing Manual TherapyTreatment Minutes: 44 Total Treatment Time Minutes (timed/untimed): 44 Alex Mendenhall PT documented in this encounter [facility] 12-19-2021 History of Present illness Narrative Episode Visit Count: 5 Therapist That Will Oversee The Plan Of Care: Alex Mendenhall Start of Care Date: 11/10/21 Onset Date: 10/11/21 REHABILITATION AND SPORTS THERAPY PHYSICAL THERAPY PROGRESS REPORT PLAN OF CARE UPDATE: Assessment: Montserrat Aguayo demonstrates minimal improvement in physical activities, working, sleeping and driving. She has progressed toward goals. Patient continues to present with impairments in ADL's, overall function, posture, range of motion and symptom management that interfere with sitting;bending;heavy exertion;working;Comments Turning/driving. Current prognosis is Good due to: current objective clinical presentation;good overall health status;positive past response to therapy;within-session changes;good support system/ coping skills . She will benefit from continued skilled therapy services to meet the updated goals for this plan of care as noted below. Goals updated on 12/16/2021. Goals for Episode of Care: created on 11/10/21 through 01/11/22 Independent in a Home Exercise Program. Currently met, continuing Patient will decrease pain rating by 2 points to meet minimal clinical important difference for numeric pain rating scale. Partially met Restore pain free cervical ROM to WNL to allow for improved functional mobility and decreased pain. Not met Drive with no aggravation of pain/symptoms. Not met Sleep throughout the night without pain/symptoms. Progressing towards Maintain proper sitting posture throughout the session to allow for decreased pain. Progressing towards. Planned Interventions, Frequency, and Duration: 1x/week, 6 weeks Total Number of Visits Planned: 6 Patient to be seen for Therapeutic exercise ([id number]);Neuromuscular re-education ([id number]);Manual therapy ([id number]);Therapeutic activities ([id number]);Self-retirement management ([id number]);Patient/Family/Caregiver Education;Body Mechanics Training PLAN FOR NEXT VISIT: May be a needling candidate. May also try more active release SUBJECTIVE: Patient Reason for Visit: Pt still has pain, especially when turning, but overall feels better. Exercises do seem to help, but the pain returns later in the day most times. She feels the hands on manual work is very helpful as well, as that usually last a couple of days (the benefits). She did get a new pillow and has been much better when she wakes up in the morning Functional Limitations: sitting;bending;heavy exertion;working;Comments Functional Limitation Comments: Turning/driving Pain: Pain Pain Level: 7 Pain Location: Neck Description: Aching;Sore Frequency: Intermittent PROMIS Scales Higher is Better 12/04/2019 06/03/2020 11/10/2021 Phys Func - Score - - 48 (within normal limits) Phys Func - Percentile - - 42 % Social Roles - Score - - 59 (within normal limits) Social Role - Percentile - - 82 % GH Physical - Score 50.8 50.8 54.1 (Very Good) GH Physical - Percentile 53 % 53 % 66 % GH Mental - Score 59 59 50.8 (Very Good) GH Mental - Percentile 82 % 82 % 53 % Self-Eff Symptom - Score - - 56 (Average) Self-Eff Symptom - Percentile - - 73 % T-scores: mean of general population = 50. 5 points is clinically meaningfully difference Percentiles provide an indication of how the patient's score ranks in relation to the general population. Higher percentile rankings indicate better function/quality of life. 50th percentile is the average of the general population and indicates half of respondents had a worse score. Lower is Better 11/10/2021 Fatigue - Score 42 (within normal limits) Fatigue - Percentile 79 % T-scores: mean of general population = 50. 5 points is clinically meaningfully difference Percentiles provide an indication of how the patient's score ranks in relation to the general population. Higher percentile rankings indicate better function/quality of life. 50th percentile is the average of the general population and indicates half of respondents had a worse score. OBJECTIVE MEASURES WITH LEVEL OF FUNCTION: Spine Observations R Cervical Spine Palpation Tenderness: Upper trapezius;Paraspinals L Cervical Spine Palpation Tenderness: Upper trapezius;Paraspinals Cervical Spine ROM Cervical Flexion AROM: Normal Cervical Extension AROM: Normal Cervical Side-Bend Right AROM: Minimal limitation Cervical Side-Bend Left AROM: Moderate limitation Cervical Rotation Right AROM: Minimal limitation Cervical Rotation Left AROM: Moderate limitation;End range pain TREATMENT: Manual Therapy: 1: STM to B levators, upper traps, cervical paraspinals 2: Manual cervical traction x7 min 3: Recheck all objective measures Skilled Intervention: Manual skills to improve joint mobility, ROM, and decrease pain. Utilized anatomy knowledge of the therapist, and assessment of patient's response to intervention. Billing Manual TherapyTreatment Minutes: 41 Total Treatment Time Minutes (timed/untimed): 41 Alex Mendenhall PT documented in this encounter [facility] 12-05-2021 History of Present illness Narrative Episode Visit Count: 4 Therapist That Will Oversee The Plan Of Care: Alex Mendenhall Start of Care Date: 11/10/21 Onset Date: 10/11/21 REHABILITATION AND SPORTS THERAPY PHYSICAL THERAPY TREATMENT NOTE ASSESSMENT: Montserrat Aguayo tolerated the session with decreased symptoms. She demonstrated improvements in neck pain and range of motion. The patient will continue to benefit from ongoing skilled physical therapy for reassessment by supervising therapist. PLAN FOR NEXT VISIT: [place] SUBJECTIVE: Patient Reason for Visit: Pt 15 min late today. Notes neck pain slightly improving, but still there- especially with turning Pain: Pain Pain Level: 3 Pain Location: Neck Description: Tightness;Sore Frequency: Continuous OBJECTIVE MEASURES WITH LEVEL OF FUNCTION: Tenderness to L cervical paraspinals and UT, R SCM TREATMENT: Manual Therapy: 1: STM to B levators, upper traps, cervical paraspinals 2: Manual cervical traction x7 min Skilled Intervention: Manual skills to improve joint mobility, ROM, and decrease pain. Utilized anatomy knowledge of the therapist, and assessment of patient's response to intervention. Billing Manual TherapyTreatment Minutes: 25 Total Treatment Time Minutes (timed/untimed): 25 Alex Mendenhall PT documented in this encounter [facility] 12-01-2021 History of Present illness Narrative Episode Visit Count: 3 Therapist That Will Oversee The Plan Of Care: Alex Mendenhall Start of Care Date: 11/10/21 Onset Date: 10/11/21 REHABILITATION AND SPORTS THERAPY PHYSICAL THERAPY TREATMENT NOTE ASSESSMENT: Montserrat Aguayo tolerated the session with decreased symptoms. She demonstrated improvements in neck pain and tissue tenderness. The patient will continue to benefit from ongoing skilled physical therapy to progress toward set goals. PLAN FOR NEXT VISIT: continue manual, adjust exercises per tolerance SUBJECTIVE: Patient Reason for Visit: Pt needs to leave early today for a meeting, but doing slightly better Pain: Pain Pain Level: 3 Pain Location: Neck Description: Tightness Frequency: Continuous OBJECTIVE MEASURES WITH LEVEL OF FUNCTION: Tenderness to below noted muscles TREATMENT: Manual Therapy: 1: STM to B levators, upper traps, cervical paraspinals 2: Manual cervical traction x7 min Skilled Intervention: Manual skills to improve joint mobility, ROM, and decrease pain. Utilized anatomy knowledge of the therapist, and assessment of patient's response to intervention. Billing Manual TherapyTreatment Minutes: 26 Total Treatment Time Minutes (timed/untimed): 26 Alex Mendenhall PT documented in this encounter [facility] 11-14-2021 History of Present illness Narrative Episode Visit Count: 2 Therapist That Will Oversee The Plan Of Care: Alex Mendenhall Start of Care Date: 11/10/21 Onset Date: 10/11/21 REHABILITATION AND SPORTS THERAPY PHYSICAL THERAPY TREATMENT NOTE ASSESSMENT: Montserrat Aguayo tolerated the session with decreased pain. She demonstrated improvements in left rotation pain and range of motion post session. The patient will continue to benefit from ongoing skilled physical therapy to progress toward set goals. PLAN FOR NEXT VISIT: continue manual as needed. May add in cervical strengthening SUBJECTIVE: Patient Reason for Visit: Pt gardened a lot over the weekend. Neck is slightly better, but possibly sore from the gardening Pain: Pain Pain Level: 3 Pain Location: Neck Description: Tightness Frequency: Continuous OBJECTIVE MEASURES WITH LEVEL OF FUNCTION: Tenderness to B cervical paraspinals, levator, upper trap TREATMENT: Manual Therapy: 1: STM to B levators, upper traps, cervical paraspinals 2: Suboccipital release on L x2 min 3: Manual cervical traction x7 min 4: C1 manual rotations facilitating left rotation 3x10, grade 3-4 mobs Skilled Intervention: Manual skills to improve joint mobility, ROM, and decrease pain. Utilized anatomy knowledge of the therapist, and assessment of patient's response to intervention. Billing Manual TherapyTreatment Minutes: 40 Total Treatment Time Minutes (timed/untimed): 40 Alex Mendenhall PT documented in this encounter [facility] 11-11-2021 History of Present illness Narrative Episode Visit Count: 1 Therapist That Will Oversee The Plan Of Care: Alex Mendenhall Start of Care Date: 11/10/21 Onset Date: 10/11/21 Patient Identified by Name and Date of : Yes REHABILITATION AND SPORTS THERAPY PHYSICAL THERAPY EVALUATION PLAN OF CARE: Assessment: Montserrat Aguayo presents with chief complaint of neck pain that interferes with nothing . She presents with impairments in range of motion, strength and tissue tenderness. PROMIS (Patient-Reported Outcomes Measurement Information System) scores were reviewed and all domains identified as within normal limits. Prognosis for therapy is Good due to: current objective clinical presentation;good overall health status;positive past response to therapy;within-session changes;good support system/ coping skills . She will benefit from skilled therapy services to meet the goals established for this plan of care as noted below. Goals for Episode of Care: created on 11/10/21 through 01/11/22 Independent in a Home Exercise Program. Patient will decrease pain rating by 2 points to meet minimal clinical important difference for numeric pain rating scale. Restore pain free cervical ROM to WNL to allow for improved functional mobility and decreased pain. Drive with no aggravation of pain/symptoms. Sleep throughout the night without pain/symptoms. Maintain proper sitting posture throughout the session to allow for decreased pain Planned Interventions, Frequency, and Duration: Current Frequency: 1x/week Duration: 6 weeks Total Number of Visits Planned: 6 Planned Treatment Interventions: Therapeutic exercise (30885);Neuromuscular re-education (72208);Manual therapy (10761);Therapeutic activities (78993);Self-retirement management (39791);Patient/Family/Caregiver Education;Body Mechanics Training PLAN FOR NEXT VISIT: Manual to cervical mm, progress stretches to post chain strengthening Patient demonstrates good understanding of plan of care and treatment. The above goals and plan of care were discussed and agreed upon by patient/family. SUBJECTIVE: Montserrat Aguayo is a 71 year old female seen today for L>R neck pain for ~ a month. Pt notes turning to the left hurts most. ocassional headaches, byut hard to say if related to the neck pain. Functional Limitations: nothing Intake Information: Prescription present Pain: Pain Pain Level: 3 Pain Location: Neck Description: Tightness Frequency: Continuous Post Treatment Pain Post Treatment Symptoms: Much better, I can turn my head now PROMIS Scales Higher is Better 12/04/2019 06/03/2020 11/10/2021 Phys Func - Score - - 48 (within normal limits) Phys Func - Percentile - - 42 % Social Roles - Score - - 59 (within normal limits) Social Role - Percentile - - 82 % GH Physical - Score 50.8 50.8 54.1 (Very Good) GH Physical - Percentile 53 % 53 % 66 % GH Mental - Score 59 59 50.8 (Very Good) GH Mental - Percentile 82 % 82 % 53 % Self-Eff Symptom - Score - - 56 (Average) Self-Eff Symptom - Percentile - - 73 % T-scores: mean of general population = 50. 5 points is clinically meaningfully difference Percentiles provide an indication of how the patient's score ranks in relation to the general population. Higher percentile rankings indicate better function/quality of life. 50th percentile is the average of the general population and indicates half of respondents had a worse score. Lower is Better 11/10/2021 Fatigue - Score 42 (within normal limits) Fatigue - Percentile 79 % T-scores: mean of general population = 50. 5 points is clinically meaningfully difference Percentiles provide an indication of how the patient's score ranks in relation to the general population. Higher percentile rankings indicate better function/quality of life. 50th percentile is the average of the general population and indicates half of respondents had a worse score. OBJECTIVE MEASURES WITH LEVEL OF FUNCTION: Spine Observations R Cervical Spine Palpation Tenderness: Paraspinals;Upper trapezius L Cervical Spine Palpation Tenderness: Paraspinals;Upper trapezius;Suboccipitals Cervical Spine ROM Cervical ROM : Limitation AROM Cervical Flexion AROM: Normal Cervical Extension AROM: Normal Cervical Side-Bend Right AROM: Minimal limitation Cervical Side-Bend Left AROM: Moderate limitation Cervical Rotation Right AROM: Minimal limitation Cervical Rotation Left AROM: Moderate limitation Education: Education Learning/educational needs: Home exercise program;Plan of Care;Changes in Plan of Care;Body Mechanics TREATMENT: PT Treatment Interventions: Manual Therapy;Therapeutic Exercise Evaluation Therapeutic Exercise: 1: *C1 rotation mobs 3x10, 5 sec holds 2: *Upper trap stretch 3x30 sec/side 3: *Levator stretch 3x30 sec/side 4: *Cervical retractions 3x10 5: *DNF in supine 3x10, 5-10 sec holds Skilled Intervention: Patient was educated in proper exercise technique and purpose for exercises. Skilled judgment was provided in selection of appropriate interventions. Provided written instruction for home exercise program to facilitate proper performance and compliance. Correct performance of therapeutic exercises was facilitated with verbal, visual and tactile cuing. Manual Therapy: 1: STM to B upper traps, cervical paraspinals 2: Suboccipital release on L x3 min 3: Manual cervical traction x5 min Skilled Intervention: Manual skills to improve joint mobility, ROM, and decrease pain. Utilized anatomy knowledge of the therapist, and assessment of patient's response to intervention. Billing * Evaluation Low Complexity: 1 Unit Therapeutic Exercise Treatment Minutes: 10 Manual TherapyTreatment Minutes: 18 Total Treatment Time Minutes (timed/untimed): 45 Alex Mendenhall PT documented in this encounter [facility] 11-09-2021 History of Present illness Narrative Radiology Service Progress Note PATIENT NAME: Montserrat Aguayo DATE OF SERVICE: November 09, 2021 TIME: 11:57 AM PATIENT IDENTITY VERIFICATION COMPLETED USING TWO (2) IDENTIFIERS: Name and Date of confirmed by patient verbally. FALL SCREENING: Has the patient had 2 falls in the last year or 1 fall with injury or currently using an Ambulatory Assistive Device (Walker, Cane, Wheelchair, Crutches, etc.)? No PATIENT GENDER DATA: Female. status: : No status: N/A PATIENT RELEVANT IMPLANT DATA REVIEWED: Not Applicable RADIOLOGY DEPARTMENT: Ultrasound PERIPHERAL IV DATA: Not applicable SIGNED BY: Sherry Hooks RDMS RVT November 09, 2021 11:57 AM documented in this encounter [facility] 11-09-2021 History of Present illness Narrative Radiology Service Progress Note PATIENT NAME: Montserrat Aguayo DATE OF SERVICE: November 09, 2021 TIME: 11:35 AM PATIENT IDENTITY VERIFICATION COMPLETED USING TWO (2) IDENTIFIERS: Name and Date of confirmed by patient verbally. FALL SCREENING: Has the patient had 2 falls in the last year or 1 fall with injury or currently using an Ambulatory Assistive Device (Walker, Cane, Wheelchair, Crutches, etc.)? No PATIENT GENDER DATA: Female. status: : No status: NO. PATIENT RELEVANT IMPLANT DATA REVIEWED: Not Applicable RADIOLOGY DEPARTMENT: Mammography PERIPHERAL IV DATA: Not applicable SIGNED BY: Romina Doyle November 09, 2021 11:35 AM documented in this encounter [facility] 11-08-2021 Miscellaneous Notes Patient notified of results, verbalizes understanding of instructions. Jenna Betancourt LPN Let patient know the neck x-ray shows significant arthritic changes in the neck. No concerning findings in the bone to indicate any metastatic cancer. documented in this encounter [facility] 11-08-2021 History of Present illness Narrative Radiology Service Progress Note PATIENT NAME: Montserrat Aguayo DATE OF SERVICE: November 08, 2021 TIME: 10:00 AM PATIENT IDENTITY VERIFICATION COMPLETED USING TWO (2) IDENTIFIERS: Name and Date of confirmed by patient verbally. FALL SCREENING: Has the patient had 2 falls in the last year or 1 fall with injury or currently using an Ambulatory Assistive Device (Walker, Cane, Wheelchair, Crutches, etc.)? No PATIENT GENDER DATA: Female. status: : No status: NO. PATIENT RELEVANT IMPLANT DATA REVIEWED: Not Applicable RADIOLOGY DEPARTMENT: General X-ray: Exam(s) Completed: Spine X-Ray(s): Cervical AP / LAT / OBL PERIPHERAL IV DATA: Not applicable SIGNED BY: RT Patrick(R) November 08, 2021 10:00 AM documented in this encounter [facility] 11-08-2021 History of Present illness Narrative Chief Complaint Patient presents with: Mass: LT and Rt neck x 1 month HPI Montserrat Aguayo is a 71 year old female who presents here today for Above Complaints.. Pain in the cinnamon grinder left neck started about 1-2 months ago. The pain has not increased but not improving. Has been doing HEP we had discussed in the past. Patient with hx of right breast CA and drug induced neutropenia. No known family Hx of lymphoma of leukemia. No night sweats, daytime fevers or unintentional weight loss. Past medical history, appointments, medications, allergies reviewed. Previous Medical History PAST MEDICAL HISTORY Diagnosis Date Acquired hypothyroidism 11/29/2005 Bilateral carotid artery stenosis 07/13/2021 US: 06/2021: Stephen 20-40% 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, right (HCC) 10/05/2017 Cataracts, bilateral 12/20/2016 Some relation to steroids with her asthma. Cervicalgia 01/27/2011 Class 1 obesity due to excess calories without serious comorbidity with body mass index (BMI) of 33.0 to 33.9 in adult 12/31/2017 Diverticulosis of large intestine Elevated hemoglobin A1c 09/10/2017 Ex-smoker Fatty liver 04/19/2016 Ganglion and cyst of synovium, tendon and bursa 06/23/2014 Gastroesophageal reflux disease without esophagitis 08/21/2016 Hidradenitis History of colonic polyps 01/06/2019 History of detached retina repair 12/20/2016 left History of skin cancer Face and lips - SCCIS Internal hemorrhoids without mention of complication Irritable bowel syndrome with both constipation and diarrhea 07/28/2020 Mass of left lower leg 07/03/2018 Benign w/u Metabolic syndrome 04/19/2016 Mild persistent asthma 09/07/2011 Mitral valve disorders(424.0) Mixed hyperlipidemia 11/29/2005 Neutropenia, drug-induced (HCC) 08/11/2011 Obesity Plantar fasciitis 11/24/2013 Primary insomnia 07/06/2021 Right-sided chest wall pain 10/05/2017 Secondary to breast cancer radiation. RSD (reflex sympathetic dystrophy) Sebaceous cyst 01/20/2014 Spinal stenosis, unspecified region other than cervical 03/02/2006 Trigger ring finger of right hand 06/23/2014 Vitamin D deficiency 09/15/2019 Previous Surgical History PAST SURGICAL HISTORY Procedure Laterality Date ADENOIDECTOMY PRIMARY <AGE 12 Adenoidectomy BREAST BIOPSY CORE 04/11/2011 right breast 2:00, 4:00 and 10:00 BREAST BIOPSY INCISIONAL 14 years ago right and left breast- benign BREAST RECONSTRUC W FREE FLAP 12/13/2012 bilateral breast BREAST RECONSTRUC W TISS EXPANDR 05/25/2011 right breast with elevation of the serratus flap CARDIAC CATH 03/20/2017 normal, by Dr. Colvin COLONOSCOPY FLX DX W/COLLJ SPEC WHEN PFRMD 04/08/2007 COLONOSCOPY FLX DX W/COLLJ SPEC WHEN PFRMD N/A 09/06/2016 MAC COLONOSCOPY FLX DX W/COLLJ SPEC WHEN PFRMD 02/10/2019 Colonoscopy INSJ TUNNELED CTR VAD W/SUBQ PORT AGE 5 YR/> 07/06/2011 left IJ MASTECTOMY, SIMPLE, COMPLETE 05/25/2011 right breast skin-sparing with SLND/level 1 LND MASTECTOMY, SIMPLE, COMPLETE 12/13/2012 prophylactic left breast PAST SURGICAL HISTORY OF squamous cell skin ca nose, lips, face PAST SURGICAL HISTORY OF 1972 removal of sweat glands (bilateral axilla (right x 2)and groin) PAST SURGICAL HISTORY OF 03/06/2016 removal of polyp at [facility] COVID-19 VACCINE, AGE 12+ YR (PURPLE TOP) 09/11/2020 first vaccine REM LESION TRUNK,ARM, LEG <0.5 CM 01/24/2014 Exc. 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 01/18/2012 Removal left IJ port RPR COMPLEX RETINA DETACH VITRECT &MEMBRANE PEEL 09/2014 left retina SIGMOIDOSCOPY FLX DX W/COLLJ SPEC BR/WA IF PFRMD 01/27/2002 Sigmoidoscopy TONSILLECTOMY PRIMARY/SECONDARY <AGE 12 Tonsillectomy Family History FAMILY HISTORY Problem Relation Age of Onset Breast Cancer Mother dx in her 50's other (uterine cancer) Mother dx before breast cancer Heart Father [place] Headache Sister other (other cances) Sister no known family h/o: ovarian; prostate, colon, pancreatic, lung, thyroid, brain, melenoma, leukemia, sarcomas other (rectal cancer) Paternal Grandmother 95 Breast Cancer Maternal Aunt 1) details unknown Breast Cancer Maternal Aunt 2) details unknown Patient Allergies ALLERGIES Allergen Reactions Typhoid Vaccine Intolerance Adhesive Tape (Haley* Other: See Comments after 2 days area becomes red and itches Cats Intolerance Diclofenac Other: See Comments elevated liver enz Dogs Intolerance Dust Intolerance Environmental [Othe* Other: See Comments sneezing Meloxicam Other: See Comments Swollen eyelids Mold Intolerance Tegretol [Carbamaze* Intolerance blood problem Current Medications Current Outpatient Medications on File Prior to Visit Medication Sig VENTOLIN HFA 90 mcg/actuation inhaler Inhale 2 Puffs as instructed every 4 hours as needed for wheezing/shortness of breath. albuterol (PROVENTIL) 2.5 mg /3 mL (0.083 %) nebulizer solution inhale 3 milliliters in nebulizer every 4 hours if needed for wheezing /SHORTNESS OF BREATH. USE OVER 5 -15 MINUTES letrozole (FEMARA) 2.5 mg tablet Take 1 tablet by mouth once daily. sertraline (ZOLOFT) 50 mg tablet 1/2 a tablet by mouth once a day for 10 days then go to one tablet daily cefADROxil (DURICEF) 500 mg capsule Take 1 capsule by mouth twice daily. aspirin, enteric coated (ASPIRIN, ENTERIC COATED) 81 mg EC tablet Take 1 tablet by mouth once daily. amitriptyline (ELAVIL) 25 mg tablet Take 2 tablets by mouth daily at bedtime. atorvastatin (LIPITOR) 40 mg tablet Take 1 tablet by mouth once daily. fluticasone-salmeterol (ADVAIR, WIXELA) 250-50 mcg/dose inhaler Inhale 1 Puff as instructed twice daily. levothyroxine (SYNTHROID) 100 mcg tablet Take 1 tablet by mouth daily before breakfast. pioglitazone (ACTOS) 15 mg tablet Take 1 tablet by mouth once daily. ergocalciferol 50,000 unit capsule (VITAMIN D2, DRISDOL) Take 1 capsule by mouth one time a week. (Patient taking differently: Take 50,000 Units by mouth. takes every 2 weeks ) clobetasol (TEMOVATE) 0.05 % ointment Apply 1 application to affected area twice daily. TO AFFECTED AREA for 2 weeks. psyllium (METAMUCIL) 3.4 gram packet Take 2 Packets by mouth once daily. calcipotriene (DOVONEX) 0.005 % oint Apply 1 application to affected area twice daily. For affected area on the lip. COMPOUNDED PRESCRIPTION NEBULIZER and supplies FOR HOME USE. DX: J45.30, J45.90. Length of need is life. This is a medically necessary devise for management of patients lung disease. Current machine recently stopped working. While trying to use it started to smoke and stopped. No current facility-administered medications on file prior to visit. Social History Social History Tobacco Use Smoking status: Former Smoker Packs/day: 2.00 Years: 12.00 Pack years: 24.00 Types: Cigarettes Quit date: 06/25/1981 Years since quittin.4 Smokeless tobacco: Never Used Vaping Use Vaping Use: Never used Substance Use Topics Alcohol use: Yes Comment: wine with meals Drug use: No Review of Symptoms REVIEW OF SYSTEMS See HPI EXAM: BP 130/78 Pulse 78 Resp 14 Wt 100.2 kg (221 lb) LMP 01/06/2009 BMI 34.28 kg/m General Appearance: Well appearing, alert, in no acute distress, well-hydrated, well nourished.. Neck: Supple, no adenopathy; thyroid symmetric, normal size, no bruits, no masses palpated on the left posterior or right posterior neck. There is pain with palpation to the left posterior paraspinal muscles. Health Maintenance List ADVANCE DIRECTIVE DISCUSSION Never done COVID-19 VACCINE(4 - Booster for Pfizer series) due on 07/31/2021 DEPRESSION SCREENING due on 12/15/2021 ANNUAL PCP TEAM CHRONIC DISEASE VISIT due on 11/08/2022 COLORECTAL CANCER SCREENING due on 02/11/2024 DIABETES SCREEN due on 07/04/2024 LIPID SCREEN due on 07/04/2026 DTAP,TDAP,TD(4 - Td or Tdap) due on 06/10/2030 BONE DENSITY Completed INFLUENZA Completed HEPATITIS C SCREENING Completed PNEUMOVAX AGE 65 AND OVER WITH 5YR LOOKBACK Completed SHINGRIX VACCINE Completed MENINGOCOCCAL CONJUGATE Aged Out MAMMOGRAM Discontinued SPIROMETRY Discontinued Data reviewed 08/30/2021 3:01 PM - Radiology, [place] In Impression IMPRESSION: Mild supratentorial microvascular ischemic changes. Otherwise normal brain. No evidence of an acute intracranial process. No significant stenosis in either carotid bifurcation by NASCET criteria. Patent cervical vertebral arteries. Mild stenosis in the proximal cervical right vertebral artery. Mild distal left vertebral artery stenosis. Otherwise no evidence of significant large vessel intracranial occlusive disease. Arterial blood flow was measured to detect acute large vessel occlusion by computer aided detection software: Not Performed. Concordance between software and imaging review: Not Applicable. Photographs Curator: PSCB Transcribe Date/Time: Aug 30 2021 1:55P Dictated by : BALA CEBALLOS MD This examination was interpreted and the report reviewed and electronically signed by: BALA CEBALLOS MD on Aug 30 2021 2:58PM EST Results-Findings * * *Final Report* * * DATE OF EXAM: Aug 30 2021 1:43PM [facility] 0023 - CTA HEAD WO/W IVCON / PROCEDURE REASON: multiple diagnoses * * * * Physician Interpretation * * * * EXAMINATION: CTA HEAD WO/W IVCON, CTA NECK W IVCON HISTORY: Hypothyroidism, breast cancer, mixed hyperlipidemia and dizziness. TECHNIQUE: Routine CT of the brain without IV contrast. Next, high resolution axial images were obtained through the head, neck and superior mediastinum following bolus administration of intravenous contrast for CT angiography. 3D maximum intensity projection images were created, reviewed and archived . MQ: [id number] Contrast: 80 mL Omnipaque [address] Radiation dose: Integrated Dose-Length Product (DLP) for this visit = 1516 mGy*cm. CT Dose Reduction Employed: Automated exposure control(AEC) and iterative recon COMPARISON: 07/15/2021. RESULT: BRAIN: Acute change: No evidence of an acute infarct or other acute parenchymal process. ASPECT Score = 10 Hemorrhage: No evidence of acute intracranial hemorrhage. ECASS hemorrhagic transformation score: Not Applicable Mass Lesion / Mass Effect: There is no evidence of an intracranial mass or extra-axial fluid collection. No significant mass effect. Chronic change: A few subtle patchy foci of low attenuation are noted in the supratentorial white matter which are nonspecific but likely represent mild microvascular ischemia in view of the patient's chronologic age. Parenchyma: There is no significant volume loss. The brain parenchyma is otherwise within normal limits for age. Ventricles: The ventricles are within normal limits of size and configuration for age. Other: Incidentally noted is prior right cataract surgery. NECK: Soft tissues: The soft tissue planes are maintained throughout. No evidence of a soft tissue mass in the neck or superior mediastinum. No significant lymphadenopathy is seen. Spine: Alignment is normal. Mild degenerative changes are present. Lung apices: The visualized lung apices are clear. CT ARTERIOGRAM: Extracranial Circulation: Aortic Arch: There is a normal branching pattern from the aortic arch.. There is no significant stenosis in the proximal brachiocephalic vessels. Carotid Stenosis: Right Common: No significant stenosis. Right Internal Carotid Plaque: Small focal eccentric calcified plaque in the proximal right ICA. Right Internal Carotid Stenosis (% by NASCET Criteria): 21 Left Common: No significant stenosis. Left Internal Carotid Plaque: Small eccentric calcified plaques in the LICA origin and proximal LICA Left Internal Carotid Stenosis (% by NASCET Criteria): 0 Cervical Vertebral Arteries: Patency: Bilateral Dominance: Right. Short segment mild stenosis in the proximal right V1 segment Intracranial Circulation: Spot Sign Presence: Not Applicable Spot Sign Number: Not Applicable Anterior Circulation: Distal ICAs are patent. Minimal calcified plaque is noted in the right carotid siphon without significant luminal narrowing. Proximal ACAs and MCAs are patent. A1 segments are essentially codominant. No evidence of focal significant stenosis, intraluminal filling defect, abrupt vessel occlusion, or aneurysm in the anterior intracranial circulation. Vertebrobasilar Circulation: The distal vertebral arteries are patent. Left vertebral artery is dominant. Long segment mild smooth stenosis is noted in the proximal V4 segments of the left vertebral artery. No significant stenosis in the distal right vertebral or basilar arteries. The proximal PICAs, right AICA and both SCA's are patent. Each PCOM is patent but the left PCOM is diminutive in caliber. Proximal business representative are patent and within normal limits of caliber and configuration. There is uniform enhancement of the superior sagittal, inferior sagittal, straight, and both transverse and both sigmoid sinuses. A/P ASSESSMENT/PLAN: 1. Neck pain - ICD9: 723.1, ICD10: M54.2 Check - XR CERV OTHER 4V AP/LAT/OBL - With CT of the neck normal in early August and no masses palpated on PE I do not feel this is any type of cancer related issue. Will try some - CONSULT TO PHYSICAL THERAPY F/u routine Liam Wilkins MD documented in this encounter [facility] 11-07-2021 Miscellaneous Notes Please aliyah patient to set up a visit with me for neck pain. You can use a walk in spot if needed. Appt scheduled with Dr. Wilkins on 11/08/21. Diana Bradley RN Please see pt's concerns. I did advise her to schedule an office visit for evaluation. Sabas Peacock LPN documented in this encounter [facility] 11-02-2021 History of Present illness Narrative Diagnosis: 1) Breast cancer. HPI: The patient is a 71 yo female with a past medical history significant for RSD, mixed hyperlipidemia, mild persistent asthma, GERD, fatty liver, hypothyroidism, spinal cervical stenosis and bilateral carotid artery stenosis. Originally appreciated a mass in the right breast in the fall of 2010. Diagnostic mammogram and US 03/20/11: 1. On the mammogram, there are a number of scattered areas of asymmetric density and scattered calcifications. No focal area of asymmetric density was identified in the area of the markers for the two palpable abnormalities as described above. 2. On ultrasound, there are some prominent ducts at 5 o'clock in the retroareolar region of the right breast. There is also a 1.3 x 1.1 x 0.7 cm mildly complex cyst in that area. It is not certain if that complex cyst represents the palpable lesion. 3. No solid or cystic lesion is noted in the right axilla in the area of the other palpable finding. Patient was sent for MRI-- There are multiple 8.2 cm x 1.5 cm x 2.3 cm clumped segmental areas in the right breast inferior medial quadrant anterior depth. These correlate with ultrasound findings. There are no abnormalities seen in the axillary nodes region. IMPRESSION: HIGHLY SUGGESTIVE OF MALIGNANCY The multiple 8.2 cm x 1.5 cm x 2.3 cm clumped segmental areas in the right breast resemble DCIS and are highly suggestive of malignancy. An ultrasound guided biopsy is recommended. Underwent US guided biopsies 04/11/11-- Pathology c/w: 1. Right breast, 4:00, ultrasound guided core needle biopsy (A) - Invasiveductal carcinoma, nuclear grade 2 (see comment). 2. Right breast, 2:00, ultrasound guided core needle biopsy (B) - Invasiveductal carcinoma, nuclear grade 2. 3. Right breast, 10:00, ultrasound guided core needle biopsy (C) - Invasiveductal carcinoma, nuclear grade 2. Estrogen receptor: Positive (>95%) Stain intensity: Strong Progesterone receptor: Positive (>95%) Stain intensity: Strong FISH for HER2 Procedure Results and Interpretation HER2 Gene Amplification: NOT AMPLIFIED Underwent right skin sparing mastectomy, lymphatic mapping, sentinel node biopsy x2, and level 1 axillary node dissection as well as right breast reconstruction with tissue button sewer hand and elevation of the serratus flap 07/26/10. Pathology: A. & B. Right and left sentinal lymph nodes #1 and #2, resection -No tumor seen in two lymph nodes (0/2). - Pending immunohistochemical stains for cytokeratin AE1/3. C. Right breast axillary contents - Micrometastatic carcinoma present in one of five lymph nodes (1/5). - The tumor is identified on H&E stain and measures approximately 1 mm. D. Right breast, mastectomy - Moderately differentiated infiltrating ductal carcinoma, multifocal. - Nipple with no significant findings. AED/ps/05/30/11 COMMENT Specimen Laterality: Right Specimen: Total breast (including nipple and skin) Procedure : Mastectomy Specimen size: Not applicable Specimen Integrity: Single intact specimen (margins can be evaluated) Lymph Node Sampling: [place] lymph node(s) Axillary dissection (partial or complete dissection) Tumor Size: Largest tumor 8 cm. Satellite masses 0.2 to 0.6 cm Tumor Focality: Multifocal Extent of Tumor: Skin: Not involved Nipple: Not involved Chest wall: Skeletal muscle absent, margin not involved Margins: Close, infiltrating ductal carcinoma comes to within <1 mm of theradial margin of the lower inner quadrant. Histologic Type of Invasive Carcinoma: Ductal Histologic Grade: Glandular (Acinar)/Tubular Differentiation: 3 Nuclear Grade: 2 Mitotic Count: 2 Overall Lopez Chu Grade: II Lymph-Vascular Invasion: Not identified Ductal Carcinoma In Situ (DCIS): DCIS solid type intermediate grade Lobular Carcinoma In Situ (LCIS): Not identified Lymph Nodes: (required only if lymph nodes are present in the specimen) Number of sentinel lymph nodes examined: 2 Total number of lymph nodes examined (sentinel and nonsentinel): 7 Number of lymph nodes with macrometastases (>0.2 cm): 0 Number of lymph nodes with micrometastases (>0.2 mm to 0.2 cm and/or >200cells):1 Number of lymph nodes with isolated tumor cells (less than or equal to 0.2 mm and less than or equal to 200 cells): 0 Size of largest metastatic deposit (if present): 1 mm Pathologic Staging(AJCC 7th Edition): pT3 pN1MI pM unknown Previous therapy: 1) AC followed by paclitaxel 10/26/11. Cycle #2 was delayed one week due to significant sensory neuropathy symptoms she had with cycle #1. 2) Adjuvant RT. 3) Anastrozole x5 years. Current therapy: 1) Letrozole. Presents for ongoing oncologic management. Interim history: She has been on letrozole 6 years. Found a tender lump in upper central left breast this morning. No other complaints. PMH, medications and allergies personally reviewed by me today. Any changes documented in appropriate section. ROS: Constitutional: Denies episodes of fever and night sweats. Not significantly fatigued. Neuro: Denies MASTERS. Fingertip and toe numbness. Not interfering with fine motor tasks. Resp: Using nebulizer BID. Still coughing up thick phlegm--mostly when lying down. GI: Denies nausea, change in bowel habits and abdominal pain. Endo: No hot flashes. Musculoskeletal: Denies bone, back, joint and muscular pain. Derm: No rash or jaundice. Heme: No unusual bleeding or bruising. PHYSICAL EXAM: Vitals: Blood pressure 133/88, pulse 72, temperature 36.6 C (97.9 F), height 171 cm (5' 7.32), weight 100.2 kg (221 lb), last menstrual period 01/06/2009, SpO2 95 %. Well-appearing and in no acute distress. EYES: Sclerae are anicteric bilaterally. LYMPHATIC: There is no palpable cervical, supraclavicular or axillary adenopathy. Scars in both axillae from previous hidradenitis suppurativa surgery. RESPIRATORY: Inspiratory breath sounds are of diminished intensity in all freeman.. CARDIOVASCULAR: Rhythm is regular. BREAST: Declined statistician mathematical. Right--implant--no surrounding nodule. There is a firm tender mobile mass in the far upper central portion of the left breast measuring about 3 cm in width. Difficult to tell craniocaudal dimension. ABDOMEN: The abdomen is nondistended. Extremities: Free of edema. ASSESSMENT/PLAN: (C50.911) 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, right (HCC) (primary encounter diagnosis) Assessment: -pT3 (m) pN1mi multifocal invasive ductal carcinoma of the right breast. ER/[place] positive (both greater than 95%). HER-2 nonamplified by FISH testing. -She has been on aromatase inhibitor for nearly 10 years. -Latest bone density testing 2011. -New left breast mass. Plan: -Advised her to stop letrozole. -Bilateral diagnostic mammogram and left-sided ultrasound as soon as able. -Recommend bone density testing. Her PCP can order. Portions of this documentation were copied and pasted from previous office visit notes in order to provide a cohesive continuity of the history. The note has been reviewed and edited and updated as necessary. I spent a total of 30 minutes on the date of the service which included preparing to see the patient, [id number] patient care, completing clinical documentation, performing a medically appropriate examination, ordering medications, tests, or procedures, communicating results to the patient/family/caregiver and care coordination (not separately reported). Bala Wolf DO documented in this encounter [facility] 10-20-2021 Miscellaneous Notes Pt has appt 01/04/22 Sabas Peacock LPN Pharmacy verified in [facility] Patient has been identified by name and date of : Yes Patient aware RX will be sent to pharmacy. No need to notify patient. Patient phones for refill(s): Pending Prescriptions Disp Refills VENTOLIN HFA 90 MCG/ACTUATION AEROSOL INHALER 18 g 11 Sig: Inhale 2 Puffs as instructed every 4 hours as needed for wheezing/shortness of breath. ISAAC: Yes ALBUTEROL SULFATE 2.5 MG/3 ML (0.083 %) SOLUTION FOR NEBULIZATION 150 mL 2 Sig: inhale 3 milliliters in nebulizer every 4 hours if needed for wheezing /SHORTNESS OF BREATH. USE OVER 5 -15 MINUTES ISAAC: No Date of last office visit : 07/06/2021 Date of next office visit : 01/04/2022 Last 2 Encounter Wt Readings: Date: Wt: 07/06/2021 101.2 kg (223 lb) 12/22/2020 102.2 kg (225 lb 6.4 oz) Please advise. Sangeetha Galeano Pss documented in this encounter [facility] 09-27-2021 Miscellaneous Notes The patient was called multiple times but was unable to reach her to schedule an appointment. The patient's phone voice mail messages are full and cannot take messages. Instructed the patient to call [phone] to schedule an appointment. Sent a [employer] message for the patient to schedule an appointment. Patient was notified Laura Garzon Ma Let patient know I sent a message to Dr. Martel to see if he would see her for this issue. Also I already treated her for the sinus infection and she noted no change. Patient reports she saw ENT last week, for dizziness and gave ENT the CT and MRI results. They called her today and informed her it is not crystals in her ears, she does have a sinus infection and they prescribed AB for it. They referred her to neurologist at [facility] for dizziness. Patient states she prefers to stay with [facility] if she doesn't have to travel to see one. Asking pcp if you think she could see [facility] neurologist in [place], or do you think she should see the neurologist at [facility]. Please phone patient with reply. documented in this encounter [facility] 09-23-2021 Miscellaneous Notes The following approved medication requests have been transmitted electronically. Signed Prescriptions Disp Refills letrozole (FEMARA) 2.5 mg tablet 90 tablet 1 Sig: Take 1 tablet by mouth once daily. ISAAC: No Authorizing Provider: LIAM WILKINS MD LAMBERT 07/06/21 NOV 01/04/22 Carmel Turcios Ma Patient has been identified by name and date of : Yes Pending Prescriptions Disp Refills LETROZOLE 2.5 MG TABLET 90 tablet 1 Sig: Take 1 tablet by mouth once daily. ISAAC: No RX INSTRUCTIONS: Patient aware RX will be sent to pharmacy. No need to notify patient. Patricia Condon documented in this encounter [facility] 09-08-2021 Miscellaneous Notes CD READY FOR WIRELESS CONSULTANT AT [facility] [place] [place] [facility] Pt knows to come and get cd Patient requesting disk of MRI and CT SCAN done on 07/15/21 and 08/30/21 Please call when ready. Thank you Jenna Haynes documented in this encounter [facility] 12-22-2020 History of Present illness Narrative Radiology Service Progress Note PATIENT NAME: Montserrat Aguayo DATE OF SERVICE: December 22, 2020 TIME: 8:53 AM PATIENT IDENTITY VERIFICATION COMPLETED USING TWO (2) IDENTIFIERS: Name and Date of confirmed by patient verbally. FALL SCREENING: Has the patient had 2 falls in the last year or 1 fall with injury or currently using an Ambulatory Assistive Device (Walker, Cane, Wheelchair, Crutches, etc.)? No PATIENT GENDER DATA: Female. status: : No status: NO. PATIENT RELEVANT IMPLANT DATA REVIEWED: Not Applicable RADIOLOGY DEPARTMENT: General X-ray: Exam(s) Completed: Chest X-Ray PERIPHERAL IV DATA: Not applicable SIGNED BY: RT Patrick(R) December 22, 2020 8:53 AM documented in this encounter [facility] 11-24-2013 History of Past i llness Narrative Problem Noted Date Resolved Date Wrist pain 11/24/2013 06/08/2014 Cellulitis 06/21/2011 06/08/2014 Abdominal pain, unspecified site 01/22/2007 09/10/2013 documented as of this encounter (statuses as of 09/23/2021) [facility] History of Past illness Narrative* Problem Noted Date Resolved Date Wrist pain 11/24/2013 06/08/2014 Cellulitis 06/21/2011 06/08/2014 Abdominal pain, unspecified site 01/22/2007 09/10/2013 documented as of this encounter (statuses as of 09/27/2021) [facility] of Past illness Narrative* Problem Noted Date Resolved Date Wrist pain 11/24/2013 06/08/2014 Cellulitis 06/21/2011 06/08/2014 Abdominal pain, unspecified site 01/22/2007 09/10/2013 documented as of this encounter (statuses as of 09/27/2021) [facility] of Past illness Narrative* Problem Noted Date Resolved Date Wrist pain 11/24/2013 06/08/2014 Cellulitis 06/21/2011 06/08/2014 Abdominal pain, unspecified site 01/22/2007 09/10/2013 documented as of this encounter (statuses as of 10/20/2021) [facility] Narrative* Problem Noted Date Resolved Date Wrist pain 11/24/2013 06/08/2014 Cellulitis 06/21/2011 06/08/2014 Abdominal pain, unspecified site 01/22/2007 09/10/2013 documented as of this encounter (statuses as of 11/02/2021) [facility] Narrative* Problem Noted Date Resolved Date Wrist pain 11/24/2013 06/08/2014 Cellulitis 06/21/2011 06/08/2014 Abdominal pain, unspecified site 01/22/2007 09/10/2013 documented as of this encounter (statuses as of 11/07/2021) [facility] Narrative* Problem Noted Date Resolved Date Wrist pain 11/24/2013 06/08/2014 Cellulitis 06/21/2011 06/08/2014 Abdominal pain, unspecified site 01/22/2007 09/10/2013 documented as of this encounter (statuses as of 11/08/2021) [facility] Narrative* Problem Noted Date Resolved Date Wrist pain 11/24/2013 06/08/2014 Cellulitis 06/21/2011 06/08/2014 Abdominal pain, unspecified site 01/22/2007 09/10/2013 documented as of this encounter (statuses as of 11/08/2021) [facility] Narrative* Problem Noted Date Resolved Date Wrist pain 11/24/2013 06/08/2014 Cellulitis 06/21/2011 06/08/2014 Abdominal pain, unspecified site 01/22/2007 09/10/2013 documented as of this encounter (statuses as of 11/10/2021) [facility] Narrative* Problem Noted Date Resolved Date Wrist pain 11/24/2013 06/08/2014 Cellulitis 06/21/2011 06/08/2014 Abdominal pain, unspecified site 01/22/2007 09/10/2013 documented as of this encounter (statuses as of 11/11/2021) [facility] Narrative* Problem Noted Date Resolved Date Wrist pain 11/24/2013 06/08/2014 Cellulitis 06/21/2011 06/08/2014 Abdominal pain, unspecified site 01/22/2007 09/10/2013 documented as of this encounter (statuses as of 11/14/2021) [facility] N[facility]ative* Problem Noted Date Resolved Date Wrist pain 11/24/2013 06/08/2014 Cellulitis 06/21/2011 06/08/2014 Abdominal pain, unspecified site 01/22/2007 09/10/2013 documented as of this encounter (statuses as of 12/01/2021) [facility] N[facility]* Problem Noted Date Resolved Date Wrist pain 11/24/2013 06/08/2014 Cellulitis 06/21/2011 06/08/2014 Abdominal pain, unspecified site 01/22/2007 09/10/2013 documented as of this encounter (statuses as of 12/05/2021) [facility] N[facility]ative* Problem Noted Date Resolved Date Wrist pain 11/24/2013 06/08/2014 Cellulitis 06/21/2011 06/08/2014 Abdominal pain, unspecified site 01/22/2007 09/10/2013 documented as of this encounter (statuses as of 12/19/2021) [facility]* Problem Noted Date Resolved Date Wrist pain 11/24/2013 06/08/2014 Cellulitis 06/21/2011 06/08/2014 Abdominal pain, unspecified site 01/22/2007 09/10/2013 documented as of this encounter (statuses as of 01/02/2022) [facility]* Problem Noted Date Resolved Date Wrist pain 11/24/2013 06/08/2014 Cellulitis 06/21/2011 06/08/2014 Abdominal pain, unspecified site 01/22/2007 09/10/2013 documented as of this encounter (statuses as of 01/05/2022) [facility]* Problem Noted Date Resolved Date Wrist pain 11/24/2013 06/08/2014 Cellulitis 06/21/2011 06/08/2014 Abdominal pain, unspecified site 01/22/2007 09/10/2013 documented as of this encounter (statuses as of 01/10/2022) [facility]* Problem Noted Date Resolved Date Wrist pain 11/24/2013 06/08/2014 Cellulitis 06/21/2011 06/08/2014 Abdominal pain, unspecified site 01/22/2007 09/10/2013 documented as of this encounter (statuses as of 01/18/2022) [facility]* Problem Noted Date Resolved Date Wrist pain 11/24/2013 06/08/2014 Cellulitis 06/21/2011 06/08/2014 Abdominal pain, unspecified site 01/22/2007 09/10/2013 documented as of this encounter (statuses as of 02/10/2022) [facility]* Problem Noted Date Resolved Date Wrist pain 11/24/2013 06/08/2014 Cellulitis 06/21/2011 06/08/2014 Abdominal pain, unspecified site 01/22/2007 09/10/2013 documented as of this encounter (statuses as of 02/10/2022) [facility]* Problem Noted Date Resolved Date Wrist pain 11/24/2013 06/08/2014 Cellulitis 06/21/2011 06/08/2014 Abdominal pain, unspecified site 01/22/2007 09/10/2013 documented as of this encounter (statuses as of 02/22/2022) [facility]* Problem Noted Date Resolved Date Wrist pain 11/24/2013 06/08/2014 Cellulitis 06/21/2011 06/08/2014 Abdominal pain, unspecified site 01/22/2007 09/10/2013 documented as of this encounter (statuses as of 03/05/2022) [facility]* Problem Noted Date Resolved Date Wrist pain 11/24/2013 06/08/2014 Cellulitis 06/21/2011 06/08/2014 Abdominal pain, unspecified site 01/22/2007 09/10/2013 documented as of this encounter (statuses as of 03/17/2022) [facility]* Problem Noted Date Resolved Date Wrist pain 11/24/2013 06/08/2014 Cellulitis 06/21/2011 06/08/2014 Abdominal pain, unspecified site 01/22/2007 09/10/2013 documented as of this encounter (statuses as of 03/21/2022) [facility]* Problem Noted Date Resolved Date Wrist pain 11/24/2013 06/08/2014 Cellulitis 06/21/2011 06/08/2014 Abdominal pain, unspecified site 01/22/2007 09/10/2013 documented as of this encounter (statuses as of 03/22/2022) [facility]* Problem Noted Date Resolved Date Wrist pain 11/24/2013 06/08/2014 Cellulitis 06/21/2011 06/08/2014 Abdominal pain, unspecified site 01/22/2007 09/10/2013 documented as of this encounter (statuses as of 04/20/2022) [facility]* Problem Noted Date Resolved Date Wrist pain 11/24/2013 06/08/2014 Cellulitis 06/21/2011 06/08/2014 Abdominal pain, unspecified site 01/22/2007 09/10/2013 documented as of this encounter (statuses as of 04/20/2022) [facility]* Problem Noted Date Resolved Date Wrist pain 11/24/2013 06/08/2014 Cellulitis 06/21/2011 06/08/2014 Abdominal pain, unspecified site 01/22/2007 09/10/2013 documented as of this encounter (statuses as of 04/25/2022) [facility]* Problem Noted Date Resolved Date Wrist pain 11/24/2013 06/08/2014 Cellulitis 06/21/2011 06/08/2014 Abdominal pain, unspecified site 01/22/2007 09/10/2013 documented as of this encounter (statuses as of 05/01/2022) [facility]* Problem Noted Date Resolved Date Wrist pain 11/24/2013 06/08/2014 Cellulitis 06/21/2011 06/08/2014 Abdominal pain, unspecified site 01/22/2007 09/10/2013 documented as of this encounter (statuses as of 05/03/2022) [facility]* Problem Noted Date Resolved Date Wrist pain 11/24/2013 06/08/2014 Cellulitis 06/21/2011 06/08/2014 Abdominal pain, unspecified site 01/22/2007 09/10/2013 documented as of this encounter (statuses as of 05/09/2022) [facility]* Problem Noted Date Resolved Date Wrist pain 11/24/2013 06/08/2014 Cellulitis 06/21/2011 06/08/2014 Abdominal pain, unspecified site 01/22/2007 09/10/2013 documented as of this encounter (statuses as of 05/09/2022) [facility]* Problem Noted Date Resolved Date Wrist pain 11/24/2013 06/08/2014 Cellulitis 06/21/2011 06/08/2014 Abdominal pain, unspecified site 01/22/2007 09/10/2013 documented as of this encounter (statuses as of 05/16/2022) [facility]* Problem Noted Date Resolved Date Wrist pain 11/24/2013 06/08/2014 Cellulitis 06/21/2011 06/08/2014 Abdominal pain, unspecified site 01/22/2007 09/10/2013 documented as of this encounter (statuses as of 05/23/2022) [facility]* Problem Noted Date Resolved Date Wrist pain 11/24/2013 06/08/2014 Cellulitis 06/21/2011 06/08/2014 Abdominal pain, unspecified site 01/22/2007 09/10/2013 documented as of this encounter (statuses as of 05/24/2022) [facility]* Problem Noted Date Resolved Date Wrist pain 11/24/2013 06/08/2014 Cellulitis 06/21/2011 06/08/2014 Abdominal pain, unspecified site 01/22/2007 09/10/2013 documented as of this encounter (statuses as of 05/30/2022) [facility]* Problem Noted Date Resolved Date Wrist pain 11/24/2013 06/08/2014 Cellulitis 06/21/2011 06/08/2014 Abdominal pain, unspecified site 01/22/2007 09/10/2013 documented as of this encounter (statuses as of 06/05/2022) [facility]* Problem Noted Date Resolved Date Wrist pain 11/24/2013 06/08/2014 Cellulitis 06/21/2011 06/08/2014 Abdominal pain, unspecified site 01/22/2007 09/10/2013 documented as of this encounter (statuses as of 06/16/2022) [facility]* Problem Noted Date Resolved Date Wrist pain 11/24/2013 06/08/2014 Cellulitis 06/21/2011 06/08/2014 Abdominal pain, unspecified site 01/22/2007 09/10/2013 documented as of this encounter (statuses as of 06/28/2022) [facility]* Problem Noted Date Resolved Date Wrist pain 11/24/2013 06/08/2014 Cellulitis 06/21/2011 06/08/2014 Abdominal pain, unspecified site 01/22/2007 09/10/2013 documented as of this encounter (statuses as of 07/24/2022) [facility]* Problem Noted Date Resolved Date Wrist pain 11/24/2013 06/08/2014 Cellulitis 06/21/2011 06/08/2014 Abdominal pain, unspecified site 01/22/2007 09/10/2013 documented as of this encounter (statuses as of 08/16/2022) [facility] History of Past illness Narrative* Problem Noted Date Resolved Date Wrist pain 11/24/2013 06/08/2014 Cellulitis 06/21/2011 06/08/2014 Abdominal pain, unspecified site 01/22/2007 09/10/2013 documented as of this encounter (statuses as of 08/29/2022) [facility] History of Past illness Narrative* Problem Noted Date Resolved Date Wrist pain 11/24/2013 06/08/2014 Cellulitis 06/21/2011 06/08/2014 Abdominal pain, unspecified site 01/22/2007 09/10/2013 documented as of this encounter (statuses as of 09/04/2022) [facility] History of Past illness Narrative* Problem Noted Date Resolved Date Wrist pain 11/24/2013 06/08/2014 Cellulitis 06/21/2011 06/08/2014 Abdominal pain, unspecified site 01/22/2007 09/10/2013 documented as of this encounter (statuses as of 09/04/2022) [facility] History of Past illness Narrative* Problem Noted Date Resolved Date Wrist pain 11/24/2013 06/08/2014 Cellulitis 06/21/2011 06/08/2014 Abdominal pain, unspecified site 01/22/2007 09/10/2013 documented as of this encounter (statuses as of 09/09/2022) [facility] History of Past illness Narrative* Problem Noted Date Resolved Date Wrist pain 11/24/2013 06/08/2014 Cellulitis 06/21/2011 06/08/2014 Abdominal pain, unspecified site 01/22/2007 09/10/2013 documented as of this encounter (statuses as of 09/15/2022) [facility] History of Past illness Narrative* Problem Noted Date Resolved Date Wrist pain 11/24/2013 06/08/2014 Cellulitis 06/21/2011 06/08/2014 Abdominal pain, unspecified site 01/22/2007 09/10/2013 documented as of this encounter (statuses as of 09/16/2022) [facility] History of Past illness Narrative* Problem Noted Date Resolved Date Wrist pain 11/24/2013 06/08/2014 Cellulitis 06/21/2011 06/08/2014 Abdominal pain, unspecified site 01/22/2007 09/10/2013 documented as of this encounter (statuses as of 09/22/2022) [facility] History of Past illness Narrative* Problem Noted Date Resolved Date Wrist pain 11/24/2013 06/08/2014 Cellulitis 06/21/2011 06/08/2014 Abdominal pain, unspecified site 01/22/2007 09/10/2013 documented as of this encounter (statuses as of 09/25/2022) [facility] History of Past illness Narrative* Problem Noted Date Resolved Date Wrist pain 11/24/2013 06/08/2014 Cellulitis 06/21/2011 06/08/2014 Abdominal pain, unspecified site 01/22/2007 09/10/2013 documented as of this encounter (statuses as of 09/26/2022) [facility] History of Past illness Narrative* Problem Noted Date Resolved Date Wrist pain 11/24/2013 06/08/2014 Cellulitis 06/21/2011 06/08/2014 Abdominal pain, unspecified site 01/22/2007 09/10/2013 documented as of this encounter (statuses as of 10/16/2022) [facility] History of Past illness Narrative* Problem Noted Date Resolved Date Wrist pain 11/24/2013 06/08/2014 Cellulitis 06/21/2011 06/08/2014 Abdominal pain, unspecified site 01/22/2007 09/10/2013 documented as of this encounter (statuses as of 10/26/2022) [facility] History of Past illness Narrative* Problem Noted Date Diagnosed Date Resolved Date Wrist pain 11/24/2013 06/08/2014 Cellulitis 06/21/2011 06/08/2014 Abdominal pain, unspecified site 01/22/2007 09/10/2013 documented as of this encounter (statuses as of 01/04/2023) [facility] History of Past illness Narrative* Problem Noted Date Diagnosed Date Resolved Date Wrist pain 11/24/2013 06/08/2014 Cellulitis 06/21/2011 06/08/2014 Abdominal pain, unspecified site 01/22/2007 09/10/2013 documented as of this encounter (statuses as of 02/10/2023) [facility] History of Past illness Narrative* Problem Noted Date Diagnosed Date Resolved Date Wrist pain 11/24/2013 06/08/2014 Cellulitis 06/21/2011 06/08/2014 Abdominal pain, unspecified site 01/22/2007 09/10/2013 documented as of this encounter (statuses as of 02/20/2023) [facility] History of Past illness Narrative* Problem Noted Date Diagnosed Date Resolved Date Wrist pain 11/24/2013 06/08/2014 Cellulitis 06/21/2011 06/08/2014 Abdominal pain, unspecified site 01/22/2007 09/10/2013 documented as of this encounter (statuses as of 03/01/2023) [facility] History of Past illness Narrative* Problem Noted Date Diagnosed Date Resolved Date Wrist pain 11/24/2013 06/08/2014 Cellulitis 06/21/2011 06/08/2014 Abdominal pain, unspecified site 01/22/2007 09/10/2013 documented as of this encounter (statuses as of 03/17/2023) [facility] History of Past illness Narrative* Problem Noted Date Diagnosed Date Resolved Date Wrist pain 11/24/2013 06/08/2014 Cellulitis 06/21/2011 06/08/2014 Abdominal pain, unspecified site 01/22/2007 09/10/2013 documented as of this encounter (statuses as of 03/28/2023) [facility] History of Past illness Narrative* Problem Noted Date Diagnosed Date Resolved Date Wrist pain 11/24/2013 06/08/2014 Cellulitis 06/21/2011 06/08/2014 Abdominal pain, unspecified site 01/22/2007 09/10/2013 documented as of this encounter (statuses as of 03/28/2023) [facility] History of Past illness Narrative* Problem Noted Date Diagnosed Date Resolved Date Wrist pain 11/24/2013 06/08/2014 Cellulitis 06/21/2011 06/08/2014 Abdominal pain, unspecified site 01/22/2007 09/10/2013 documented as of this encounter (statuses as of 04/04/2023) [facility] History of Past illness Narrative* Problem Noted Date Diagnosed Date Resolved Date Wrist pain 11/24/2013 06/08/2014 Cellulitis 06/21/2011 06/08/2014 Abdominal pain, unspecified site 01/22/2007 09/10/2013 documented as of this encounter (statuses as of 04/05/2023) [facility] History of Past illness Narrative* Problem Noted Date Diagnosed Date Resolved Date Wrist pain 11/24/2013 06/08/2014 Cellulitis 06/21/2011 06/08/2014 Abdominal pain, unspecified site 01/22/2007 09/10/2013 documented as of this encounter (statuses as of 04/06/2023) [facility] History of Past illness Narrative* Problem Noted Date Diagnosed Date Resolved Date Wrist pain 11/24/2013 06/08/2014 Cellulitis 06/21/2011 06/08/2014 Abdominal pain, unspecified site 01/22/2007 09/10/2013 documented as of this encounter (statuses as of 04/12/2023) [facility] History of Past illness Narrative* Problem Noted Date Diagnosed Date Resolved Date Wrist pain 11/24/2013 06/08/2014 Cellulitis 06/21/2011 06/08/2014 Abdominal pain, unspecified site 01/22/2007 09/10/2013 documented as of this encounter (statuses as of 04/17/2023) [facility] History of Past illness Narrative* Problem Noted Date Diagnosed Date Resolved Date Wrist pain 11/24/2013 06/08/2014 Cellulitis 06/21/2011 06/08/2014 Abdominal pain, unspecified site 01/22/2007 09/10/2013 documented as of this encounter (statuses as of 04/23/2023) [facility] History of Past illness Narrative* Problem Noted Date Diagnosed Date Resolved Date Wrist pain 11/24/2013 06/08/2014 Cellulitis 06/21/2011 06/08/2014 Abdominal pain, unspecified site 01/22/2007 09/10/2013 documented as of this encounter (statuses as of 04/28/2023) [facility] History of Past illness Narrative* Problem Noted Date Diagnosed Date Resolved Date Wrist pain 11/24/2013 06/08/2014 Cellulitis 06/21/2011 06/08/2014 Abdominal pain, unspecified site 01/22/2007 09/10/2013 documented as of this encounter (statuses as of 04/28/2023) [facility] History of Past illness Narrative* Problem Noted Date Diagnosed Date Resolved Date Wrist pain 11/24/2013 06/08/2014 Cellulitis 06/21/2011 06/08/2014 Abdominal pain, unspecified site 01/22/2007 09/10/2013 documented as of this encounter (statuses as of 04/28/2023) [facility] History of Past illness Narrative* Problem Noted Date Diagnosed Date Resolved Date Wrist pain 11/24/2013 06/08/2014 Cellulitis 06/21/2011 06/08/2014 Abdominal pain, unspecified site 01/22/2007 09/10/2013 documented as of this encounter (statuses as of 05/14/2023) [facility] History of Past illness Narrative* Problem Noted Date Diagnosed Date Resolved Date Wrist pain 11/24/2013 06/08/2014 Cellulitis 06/21/2011 06/08/2014 Abdominal pain, unspecified site 01/22/2007 09/10/2013 documented as of this encounter (statuses as of 05/18/2023) [facility] History of Past illness Narrative* Problem Noted Date Diagnosed Date Resolved Date Wrist pain 11/24/2013 06/08/2014 Cellulitis 06/21/2011 06/08/2014 Abdominal pain, unspecified site 01/22/2007 09/10/2013 documented as of this encounter (statuses as of 05/31/2023) [facility] History of Past illness Narrative* Problem Noted Date Diagnosed Date Resolved Date Wrist pain 11/24/2013 06/08/2014 Cellulitis 06/21/2011 06/08/2014 Abdominal pain, unspecified site 01/22/2007 09/10/2013 documented as of this encounter (statuses as of 06/14/2023) [facility] History of Past illness Narrative* Problem Noted Date Diagnosed Date Resolved Date Wrist pain 11/24/2013 06/08/2014 Cellulitis 06/21/2011 06/08/2014 Abdominal pain, unspecified site 01/22/2007 09/10/2013 documented as of this encounter (statuses as of 07/27/2023) [facility] History of Past illness Narrative* Problem Noted Date Diagnosed Date Resolved Date Wrist pain 11/24/2013 06/08/2014 Cellulitis 06/21/2011 06/08/2014 Abdominal pain, unspecified site 01/22/2007 09/10/2013 documented as of this encounter (statuses as of 08/06/2023) [facility] History of Past illness Narrative* Problem Noted Date Diagnosed Date Resolved Date Wrist pain 11/24/2013 06/08/2014 Cellulitis 06/21/2011 06/08/2014 Abdominal pain, unspecified site 01/22/2007 09/10/2013 documented as of this encounter (statuses as of 08/09/2023) [facility] History of Past illness Narrative* Problem Noted Date Diagnosed Date Resolved Date Wrist pain 11/24/2013 06/08/2014 Cellulitis 06/21/2011 06/08/2014 Abdominal pain, unspecified site 01/22/2007 09/10/2013 documented as of this encounter (statuses as of 08/10/2023) [facility] History of Past illness Narrative* Problem Noted Date Diagnosed Date Resolved Date Wrist pain 11/24/2013 06/08/2014 Cellulitis 06/21/2011 06/08/2014 Abdominal pain, unspecified site 01/22/2007 09/10/2013 documented as of this encounter (statuses as of 08/14/2023) [facility] History of Past illness Narrative* Problem Noted Date Diagnosed Date Resolved Date Wrist pain 11/24/2013 06/08/2014 Cellulitis 06/21/2011 06/08/2014 Abdominal pain, unspecified site 01/22/2007 09/10/2013 documented as of this encounter (statuses as of 08/16/2023) [facility] History of Past illness Narrative* Problem Noted Date Diagnosed Date Resolved Date Wrist pain 11/24/2013 06/08/2014 Cellulitis 06/21/2011 06/08/2014 Abdominal pain, unspecified site 01/22/2007 09/10/2013 documented as of this encounter (statuses as of 08/23/2023) [facility] History of Past illness Narrative* Problem Noted Date Diagnosed Date Resolved Date Wrist pain 11/24/2013 06/08/2014 Cellulitis 06/21/2011 06/08/2014 Abdominal pain, unspecified site 01/22/2007 09/10/2013 documented as of this encounter (statuses as of 09/03/2023) [facility] History of Past illness Narrative* Problem Noted Date Diagnosed Date Resolved Date Wrist pain 11/24/2013 06/08/2014 Cellulitis 06/21/2011 06/08/2014 Abdominal pain, unspecified site 01/22/2007 09/10/2013 documented as of this encounter (statuses as of 09/05/2023) [facility] History of Past illness Narrative* Problem Noted Date Diagnosed Date Resolved Date Wrist pain 11/24/2013 06/08/2014 Cellulitis 06/21/2011 06/08/2014 Abdominal pain, unspecified site 01/22/2007 09/10/2013 documented as of this encounter (statuses as of 09/12/2023) [facility] History of Past illness Narrative* Problem Noted Date Diagnosed Date Resolved Date Wrist pain 11/24/2013 06/08/2014 Cellulitis 06/21/2011 06/08/2014 Abdominal pain, unspecified site 01/22/2007 09/10/2013 documented as of this encounter (statuses as of 09/19/2023) [facility] History of Past illness Narrative* Problem Noted Date Diagnosed Date Resolved Date Wrist pain 11/24/2013 06/08/2014 Cellulitis 06/21/2011 06/08/2014 Abdominal pain, unspecified site 01/22/2007 09/10/2013 documented as of this encounter (statuses as of 09/27/2023) [facility] History of Past illness Narrative* Problem Noted Date Diagnosed Date Resolved Date Wrist pain 11/24/2013 06/08/2014 Cellulitis 06/21/2011 06/08/2014 Abdominal pain, unspecified site 01/22/2007 09/10/2013 documented as of this encounter (statuses as of 10/04/2023) [facility] History of Past illness Narrative* Problem Noted Date Diagnosed Date Resolved Date Wrist pain 11/24/2013 06/08/2014 Cellulitis 06/21/2011 06/08/2014 Abdominal pain, unspecified site 01/22/2007 09/10/2013 documented as of this encounter (statuses as of 10/11/2023) [facility] of Past illness Narrative* Problem Noted Date Diagnosed Date Resolved Date Wrist pain 11/24/2013 06/08/2014 Cellulitis 06/21/2011 06/08/2014 Abdominal pain, unspecified site 01/22/2007 09/10/2013 documented as of this encounter (statuses as of 09/28/2023) [facility] Diagnosis 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, right (HCC)- Primary Mass of upper outer quadrant of left breast Breast cancer screening, high risk patient Screening mammogram for high-risk patient [facility] Diagnosis Neck pain- Primary Cervicalgia [facility] [place] [facility] Diagnosis Mass of upper outer quadrant of left breast Breast cancer screening, high risk patient Screening mammogram for high-risk patient [facility] Diagnosis Dizziness- Primary Dizziness and giddiness documented [facility] [place] Diagnosis Dizziness- Primary Dizziness and giddiness [facility] Diagnosis Dizziness- Primary Dizziness and giddiness [facility] Dizziness- Primary Dizziness and giddiness [facility] Diagnosis Dizziness- Primary Dizziness and giddiness [facility] Diagnosis Dizziness- Primary Dizziness and giddiness [facility]* Diagnosis Mixed hyperlipidemia- Primary Acquired hypothyroidism Unspecified hypothyroidism Elevated hemoglobin A1c Other abnormal blood chemistry Gastroesophageal reflux disease without esophagitis Esophageal reflux Mild persistent asthma without complication Unspecified asthma Bilateral carotid artery stenosis Occlusion and stenosis of carotid artery without mention of cerebral infarction 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, right (HCC) Class 1 obesity due to excess calories without serious comorbidity with body mass index (BMI) of 33.0 to 33.9 in adult Neutropenia, drug-induced (HCC) Drug induced neutropenia RSD (reflex sympathetic dystrophy) Reflex sympathetic dystrophy, unspecified Vitamin D deficiency Unspecified vitamin D deficiency Living will in place Advance directive discussed with patient Other specified counseling Screening for osteoporosis Special screening for osteoporosis Primary ovarian failure Other ovarian failure Medication management Encounter for long-term (current) use of other medications [facility] Diagnosis Dizziness- Primary Dizziness and giddiness [facility] Dizziness- Primary Dizziness and giddiness documented [facility] Diagnosis Mild intermittent asthma with exacerbation Unspecified asthma, with exacerbation [facility] Diagnosis Rash- Primary Rash and other nonspecific skin eruption [facility] Diagnosis Cervicalgia- Primary [facility] Diagnosis Suspected COVID-19 virus infection- Primary [facility] Diagnosis Cervicalgia [facility] Diagnosis Cervical spondylosis without myelopathy- Primary Cervical stenosis of spinal canal Spinal stenosis in cervical region [facility] Diagnosis Dizziness- Primary Dizziness and giddiness Neck pain Cervicalgia [facility] Diagnosis Neck pain- Primary Cervicalgia Dizziness Dizziness and giddiness documented [facility] Diagnosis Neck pain- Primary Cervicalgia Neural foraminal stenosis of cervical spine Spinal stenosis in cervical region Cervicalgia [facility] Diagnosis Neck pain- Primary Cervicalgia [facility] Diagnosis Neck pain- Primary Cervicalgia Dizziness Dizziness and giddiness documented [facility] Diagnosis Cervical spondylosis without myelopathy- Primary Cervical spondylosis without myelopathy- Primary [facility] Diagnosis Cervical spondylosis without myelopathy- Primary Myalgia Mylagia and myositis, unspecified [facility] Diagnosis Neck pain- Primary Cervicalgia Dizziness Dizziness and giddiness Cervical spondylosis without myelopathy- Primary Myalgia Mylagia and myositis, unspecified [facility] Diagnosis Neck pain- Primary Cervicalgia Dizziness Dizziness and giddiness Cervical spondylosis without myelopathy- Primary Myalgia Mylagia and myositis, unspecified [facility] Diagnosis Neck pain- Primary Cervicalgia Dizziness Dizziness and giddiness documented [facility] Diagnosis Neural foraminal stenosis of cervical spine- Primary Spinal stenosis in cervical region Neck pain Cervicalgia [facility] Diagnosis Degenerative disc disease, cervical- Primary Degeneration of cervical intervertebral disc Osseous and subluxation stenosis of intervertebral foramina of cervical region Spinal stenosis in cervical region Muscle spasms of neck Spasm of muscle Neural foraminal stenosis of cervical spine Spinal stenosis in cervical region Neck pain Cervicalgia [facility] Diagnosis Acquired hypothyroidism- Primary Unspecified hypothyroidism Elevated hemoglobin A1c Other abnormal blood chemistry Gastroesophageal reflux disease without esophagitis Esophageal reflux Mixed hyperlipidemia Vitamin D deficiency Unspecified vitamin D deficiency Medication management Encounter for long-term (current) use of other medications [facility]* Diagnosis Well adult exam- Primary Routine general medical examination at a [facility] Acquired hypothyroidism Unspecified hypothyroidism Mixed hyperlipidemia Mild persistent asthma without complication Unspecified asthma Gastroesophageal reflux disease without esophagitis Esophageal reflux Elevated hemoglobin A1c Other abnormal blood chemistry Bilateral carotid artery stenosis Occlusion and stenosis of carotid artery without mention of cerebral infarction RSD (reflex sympathetic dystrophy) Reflex sympathetic dystrophy, unspecified Neutropenia, drug-induced (HCC) Drug induced neutropenia 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, right (HCC) Class 1 obesity due to excess calories without serious comorbidity with body mass index (BMI) of 33.0 to 33.9 in adult Vitamin D deficiency Unspecified vitamin D deficiency Mass of soft tissue of neck Advance directive discussed with patient Other specified counseling [facility] Urinary frequency- Primary [facility] Diagnosis Flank pain- Primary Abdominal pain, unspecified site Rib pain on right side Chest pain, unspecified [facility] Diagnosis Rib pain on right side- Primary Chest pain, unspecified [facility] Diagnosis Infected wound- Primary Posttraumatic wound infection not elsewhere classified [facility] Diagnosis Acute pain of left shoulder- Primary [facility] Diagnosis Acute pain of left shoulder- Primary [facility] Diagnosis Acute pain of left shoulder- Primary [facility] Diagnosis Acute pain of left shoulder- Primary [facility] Diagnosis Left shoulder pain, unspecified chronicity- Primary Mild intermittent asthma with exacerbation Unspecified asthma, with exacerbation [facility] Diagnosis Left shoulder pain, unspecified chronicity [facility] Diagnosis Mixed hyperlipidemia- Primary Acquired hypothyroidism Unspecified hypothyroidism Elevated hemoglobin A1c Other abnormal blood chemistry Gastroesophageal reflux disease without esophagitis Esophageal reflux Mild persistent asthma without complication Unspecified asthma Bilateral carotid artery stenosis Occlusion and stenosis of carotid artery without mention of cerebral infarction 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, right (HCC) Class 1 obesity due to excess calories without serious comorbidity with body mass index (BMI) of 33.0 to 33.9 in adult Neutropenia, drug-induced (HCC) Drug induced neutropenia RSD (reflex sympathetic dystrophy) Reflex sympathetic dystrophy, unspecified Vitamin D deficiency Unspecified vitamin D deficiency Acute pain of left shoulder [facility] Diagnosis Tear of left glenoid labrum, initial encounter Incomplete tear of left rotator cuff, unspecified whether traumatic Labral tear of long head of left biceps tendon, initial encounter [facility] Diagnosis Rib pain on right side Chest pain, unspecified [facility] Diagnosis Flank pain Abdominal pain, unspecified site [facility] Diagnosis Mass of soft tissue of neck [facility]* Diagnosis Tear of left glenoid labrum, initial encounter- Primary Incomplete tear of left rotator cuff, unspecified whether traumatic Labral tear of long head of left biceps tendon, initial encounter Tear of left glenoid labrum, initial encounter Incomplete tear of left rotator cuff, unspecified whether traumatic Labral tear of long head of left biceps tendon, initial encounter [facility]* Diagnosis Pre-operative examination- Primary Preoperative examination, unspecified Acquired hypothyroidism Unspecified hypothyroidism Bilateral carotid artery stenosis Occlusion and stenosis of carotid artery without mention of cerebral infarction 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, right (HCC) Elevated hemoglobin A1c Other abnormal blood chemistry History of skin cancer Personal history of other malignant neoplasm of skin Irritable bowel syndrome with both constipation and diarrhea Mild persistent asthma without complication Unspecified asthma Mixed hyperlipidemia RSD (reflex sympathetic dystrophy) Reflex sympathetic dystrophy, unspecified Class 1 obesity due to excess calories without serious comorbidity with body mass index (BMI) of 30.0 to 30.9 in adult Tear of left glenoid labrum, initial encounter Incomplete tear of left rotator cuff, unspecified whether traumatic Labral tear of long head of left biceps tendon, initial encounter [facility] Diagnosis Tear of left glenoid labrum, initial encounter- Primary Labral tear of long head of left biceps tendon, initial encounter [facility] Diagnosis Tear of left glenoid labrum, initial encounter- Primary Labral tear of long head of left biceps tendon, initial encounter [facility] Diagnosis Tear of left glenoid labrum, initial encounter- Primary Labral tear of long head of left biceps tendon, initial encounter [facility] Diagnosis S/P shoulder surgery- Primary Other postprocedural status Stiffness of left shoulder joint [facility]* Diagnosis Tear of left glenoid labrum, initial encounter- Primary Labral tear of long head of left biceps tendon, initial encounter [facility] Diagnosis Tear of left glenoid labrum, initial encounter- Primary Labral tear of long head of left biceps tendon, initial encounter [facility] Diagnosis Tear of left glenoid labrum, subsequent encounter- Primary Labral tear of long head of left biceps tendon, initial encounter [facility] Diagnosis Tear of left glenoid labrum, subsequent encounter- Primary Labral tear of long head of left biceps tendon, initial encounter [facility] Diagnosis Tear of left glenoid labrum, subsequent encounter- Primary Labral tear of long head of left biceps tendon, initial encounter [facility] Diagnosis Tear of left glenoid labrum, subsequent encounter- Primary Labral tear of long head of left biceps tendon, initial encounter [facility]* Diagnosis Well adult exam- Primary Routine general medical examination at a health care facility Mixed hyperlipidemia Elevated hemoglobin A1c Other abnormal blood chemistry Bilateral carotid artery stenosis Occlusion and stenosis of carotid artery without mention of cerebral infarction Acquired hypothyroidism Unspecified hypothyroidism Mild persistent asthma without complication Unspecified asthma Gastroesophageal reflux disease without esophagitis Esophageal reflux Neutropenia, drug-induced (HCC) Drug induced neutropenia Vitamin D deficiency Unspecified vitamin D deficiency RSD (reflex sympathetic dystrophy) Reflex sympathetic dystrophy, unspecified Over weight Overweight 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, right (HCC) Irritable bowel syndrome with both constipation and diarrhea Fatty liver Other chronic nonalcoholic liver disease Incomplete tear of left rotator cuff, unspecified whether traumatic Encounter for immunization Need for other specified prophylactic vaccination against single bacterial disease [facility] Diagnosis Lichen sclerosus- Primary Circumscribed scleroderma History of right breast cancer H/O bilateral mastectomy Acquired absence of breast and nipple [facility]* Diagnosis Colon cancer screening Special screening for malignant neoplasms, colon Altered bowel habits Other symptoms involving digestive system [facility] Diagnosis Encounter for gynecological examination (general) (routine) without abnormal findings- Primary Encounter for screening mammogram for breast cancer Lichen sclerosus Circumscribed scleroderma [facility] Diagnosis Osteoarthritis of shoulder, unspecified laterality, unspecified osteoarthritis type- Primary S/P shoulder surgery Other postprocedural status [facility] Diagnosis Bilateral carotid artery stenosis- Primary Occlusion and stenosis of carotid artery without mention of cerebral infarction [facility] Diagnosis Osteoarthritis of shoulder, unspecified laterality, unspecified osteoarthritis type- Primary [facility] Diagnosis Colon cancer screening- Primary Special screening for malignant neoplasms, colon [facility]* Diagnosis Elevated hemoglobin A1c- Primary Other abnormal blood chemistry Mixed hyperlipidemia [facility] Diagnosis Abnormal mammogram of left breast [facility]* Diagnosis Abnormal mammogram of left breast [facility] Diagnosis Pre-operative examination- Primary Preoperative examination, unspecified Acquired hypothyroidism Unspecified hypothyroidism Bilateral carotid artery stenosis Occlusion and stenosis of carotid artery without mention of cerebral infarction 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, right (HCC) Elevated hemoglobin A1c Other abnormal blood chemistry History of skin cancer Personal history of other malignant neoplasm of skin Irritable bowel syndrome with both constipation and diarrhea Mild persistent asthma without complication Unspecified asthma Mixed hyperlipidemia RSD (reflex sympathetic dystrophy) Reflex sympathetic dystrophy, unspecified Class 1 obesity due to excess calories without serious comorbidity with body mass index (BMI) of 30.0 to 30.9 in adult Aortic valve stenosis, etiology of cardiac valve disease unspecified- Primary Bilateral carotid artery stenosis Occlusion and stenosis of carotid artery without mention of cerebral infarction [facility] Diagnosis Pre-operative examination- Primary Preoperative examination, unspecified Acquired hypothyroidism Unspecified hypothyroidism Bilateral carotid artery stenosis Occlusion and stenosis of carotid artery without mention of cerebral infarction 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, right (HCC) Elevated hemoglobin A1c Other abnormal blood chemistry History of skin cancer Personal history of other malignant neoplasm of skin Irritable bowel syndrome with both constipation and diarrhea Mild persistent asthma without complication Unspecified asthma Mixed hyperlipidemia RSD (reflex sympathetic dystrophy) Reflex sympathetic dystrophy, unspecified Class 1 obesity due to excess calories without serious comorbidity with body mass index (BMI) of 30.0 to 30.9 in adult Left shoulder pain, unspecified chronicity- Primary S/P shoulder surgery Other postprocedural status [facility] Diagnosis Left shoulder pain, unspecified chronicity Pre-operative examination- Primary Preoperative examination, unspecified Acquired hypothyroidism Unspecified hypothyroidism Bilateral carotid artery stenosis Occlusion and stenosis of carotid artery without mention of cerebral infarction 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, right (HCC) Elevated hemoglobin A1c Other abnormal blood chemistry History of skin cancer Personal history of other malignant neoplasm of skin Irritable bowel syndrome with both constipation and diarrhea Mild persistent asthma without complication Unspecified asthma Mixed hyperlipidemia RSD (reflex sympathetic dystrophy) Reflex sympathetic dystrophy, unspecified Class 1 obesity due to excess calories without serious comorbidity with body mass index (BMI) of 30.0 to 30.9 in adult [facility] Diagnosis Flank pain Abdominal pain, unspecified site Rib pain on right side Chest pain, unspecified Pre-operative examination- Primary Preoperative examination, unspecified Acquired hypothyroidism Unspecified hypothyroidism Bilateral carotid artery stenosis Occlusion and stenosis of carotid artery without mention of cerebral infarction 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, right (HCC) Elevated hemoglobin A1c Other abnormal blood chemistry History of skin cancer Personal history of other malignant neoplasm of skin Irritable bowel syndrome with both constipation and diarrhea Mild persistent asthma without complication Unspecified asthma Mixed hyperlipidemia RSD (reflex sympathetic dystrophy) Reflex sympathetic dystrophy, unspecified Class 1 obesity due to excess calories without serious comorbidity with body mass index (BMI) of 30.0 to 30.9 in adult documented [facility]* Diagnosis Neck pain Cervicalgia Pre-operative examination- Primary Preoperative examination, unspecified Acquired hypothyroidism Unspecified hypothyroidism Bilateral carotid artery stenosis Occlusion and stenosis of carotid artery without mention of cerebral infarction 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, right (HCC) Elevated hemoglobin A1c Other abnormal blood chemistry History of skin cancer Personal history of other malignant neoplasm of skin Irritable bowel syndrome with both constipation and diarrhea Mild persistent asthma without complication Unspecified asthma Mixed hyperlipidemia RSD (reflex sympathetic dystrophy) Reflex sympathetic dystrophy, unspecified Class 1 obesity due to excess calories without serious comorbidity with body mass index (BMI) of 30.0 to 30.9 in adult documented [facility] Diagnosis Cough Pre-operative examination- Primary Preoperative examination, unspecified Acquired hypothyroidism Unspecified hypothyroidism Bilateral carotid artery stenosis Occlusion and stenosis of carotid artery without mention of cerebral infarction 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, right (HCC) Elevated hemoglobin A1c Other abnormal blood chemistry History of skin cancer Personal history of other malignant neoplasm of skin Irritable bowel syndrome with both constipation and diarrhea Mild persistent asthma without complication Unspecified asthma Mixed hyperlipidemia RSD (reflex sympathetic dystrophy) Reflex sympathetic dystrophy, unspecified Class 1 obesity due to excess calories without serious comorbidity with body mass index (BMI) of 30.0 to 30.9 in adult [facility] Diagnosis S/P shoulder surgery- Primary Other postprocedural status documented [facility] Diagnosis Pre-operative examination- Primary Preoperative examination, unspecified Acquired hypothyroidism Unspecified hypothyroidism Bilateral carotid artery stenosis Occlusion and stenosis of carotid artery without mention of cerebral infarction 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, right (HCC) Elevated hemoglobin A1c Other abnormal blood chemistry History of skin cancer Personal history of other malignant neoplasm of skin Irritable bowel syndrome with both constipation and diarrhea Mild persistent asthma without complication Unspecified asthma Mixed hyperlipidemia RSD (reflex sympathetic dystrophy) Reflex sympathetic dystrophy, unspecified Class 1 obesity due to excess calories without serious comorbidity with body mass index (BMI) of 30.0 to 30.9 in adult Mixed hyperlipidemia- Primary Acquired hypothyroidism Unspecified hypothyroidism Elevated hemoglobin A1c Other abnormal blood chemistry Gastroesophageal reflux disease without esophagitis Esophageal reflux Bilateral carotid artery stenosis Occlusion and stenosis of carotid artery without mention of cerebral infarction Mild persistent asthma without complication Unspecified asthma 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, right (HCC) Neutropenia, drug-induced (HCC) Drug induced neutropenia Vitamin D deficiency Unspecified vitamin D deficiency Fatty liver Other chronic nonalcoholic liver disease Skin lesions [facility] Diagnosis Pre-operative examination- Primary Preoperative examination, unspecified Acquired hypothyroidism Unspecified hypothyroidism Bilateral carotid artery stenosis Occlusion and stenosis of carotid artery without mention of cerebral infarction 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, right (HCC) Elevated hemoglobin A1c Other abnormal blood chemistry History of skin cancer Personal history of other malignant neoplasm of skin Irritable bowel syndrome with both constipation and diarrhea Mild persistent asthma without complication Unspecified asthma Mixed hyperlipidemia RSD (reflex sympathetic dystrophy) Reflex sympathetic dystrophy, unspecified Class 1 obesity due to excess calories without serious comorbidity with body mass index (BMI) of 30.0 to 30.9 in adult Acquired hypothyroidism- Primary Unspecified hypothyroidism Elevated hemoglobin A1c Other abnormal blood chemistry Dizziness Dizziness and giddiness PVC (premature ventricular contraction) Other premature beats [facility] Diagnosis Pre-operative examination- Primary Preoperative examination, unspecified Acquired hypothyroidism Unspecified hypothyroidism Bilateral carotid artery stenosis Occlusion and stenosis of carotid artery without mention of cerebral infarction 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, right (HCC) Elevated hemoglobin A1c Other abnormal blood chemistry History of skin cancer Personal history of other malignant neoplasm of skin Irritable bowel syndrome with both constipation and diarrhea Mild persistent asthma without complication Unspecified asthma Mixed hyperlipidemia RSD (reflex sympathetic dystrophy) Reflex sympathetic dystrophy, unspecified Class 1 obesity due to excess calories without serious comorbidity with body mass index (BMI) of 30.0 to 30.9 in adult Dizziness- Primary Dizziness and giddiness PVC (premature ventricular contraction) Other premature beats [facility] Diagnosis Pre-operative examination- Primary Preoperative examination, unspecified Acquired hypothyroidism Unspecified hypothyroidism Bilateral carotid artery stenosis Occlusion and stenosis of carotid artery without mention of cerebral infarction 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, right (HCC) Elevated hemoglobin A1c Other abnormal blood chemistry History of skin cancer Personal history of other malignant neoplasm of skin Irritable bowel syndrome with both constipation and diarrhea Mild persistent asthma without complication Unspecified asthma Mixed hyperlipidemia RSD (reflex sympathetic dystrophy) Reflex sympathetic dystrophy, unspecified Class 1 obesity due to excess calories without serious comorbidity with body mass index (BMI) of 30.0 to 30.9 in adult Vertigo- Primary Dizziness and giddiness [facility] Diagnosis Pre-operative examination- Primary Preoperative examination, unspecified Acquired hypothyroidism Unspecified hypothyroidism Bilateral carotid artery stenosis Occlusion and stenosis of carotid artery without mention of cerebral infarction 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, right (HCC) Elevated hemoglobin A1c Other abnormal blood chemistry History of skin cancer Personal history of other malignant neoplasm of skin Irritable bowel syndrome with both constipation and diarrhea Mild persistent asthma without complication Unspecified asthma Mixed hyperlipidemia RSD (reflex sympathetic dystrophy) Reflex sympathetic dystrophy, unspecified Class 1 obesity due to excess calories without serious comorbidity with body mass index (BMI) of 30.0 to 30.9 in adult Left shoulder pain, unspecified chronicity- Primary S/P shoulder surgery Other postprocedural status documented [facility] Diagnosis Pre-operative examination- Primary Preoperative examination, unspecified Acquired hypothyroidism Unspecified hypothyroidism Bilateral carotid artery stenosis Occlusion and stenosis of carotid artery without mention of cerebral infarction 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, right (HCC) Elevated hemoglobin A1c Other abnormal blood chemistry History of skin cancer Personal history of other malignant neoplasm of skin Irritable bowel syndrome with both constipation and diarrhea Mild persistent asthma without complication Unspecified asthma Mixed hyperlipidemia RSD (reflex sympathetic dystrophy) Reflex sympathetic dystrophy, unspecified Class 1 obesity due to excess calories without serious comorbidity with body mass index (BMI) of 30.0 to 30.9 in adult Vertigo- Primary Dizziness and giddiness PVC (premature ventricular contraction) Other premature beats [facility] Diagnosis Pre-operative examination- Primary Preoperative examination, unspecified Acquired hypothyroidism Unspecified hypothyroidism Bilateral carotid artery stenosis Occlusion and stenosis of carotid artery without mention of cerebral infarction 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, right (HCC) Elevated hemoglobin A1c Other abnormal blood chemistry History of skin cancer Personal history of other malignant neoplasm of skin Irritable bowel syndrome with both constipation and diarrhea Mild persistent asthma without complication (HCC) Unspecified asthma Mixed hyperlipidemia RSD (reflex sympathetic dystrophy) Reflex sympathetic dystrophy, unspecified Class 1 obesity due to excess calories without serious comorbidity with body mass index (BMI) of 30.0 to 30.9 in adult PVC (premature ventricular contraction) Other premature beats documented in this encounter [facility]* Diagnosis Pre-operative examination- Primary Preoperative examination, unspecified Acquired hypothyroidism Unspecified hypothyroidism Bilateral carotid artery stenosis Occlusion and stenosis of carotid artery without mention of cerebral infarction 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, right (HCC) Elevated hemoglobin A1c Other abnormal blood chemistry History of skin cancer Personal history of other malignant neoplasm of skin Irritable bowel syndrome with both constipation and diarrhea Mild persistent asthma without complication (HCC) Unspecified asthma Mixed hyperlipidemia RSD (reflex sympathetic dystrophy) Reflex sympathetic dystrophy, unspecified Class 1 obesity due to excess calories without serious comorbidity with body mass index (BMI) of 30.0 to 30.9 in adult Well adult exam- Primary Routine general medical examination at a health care facility Mixed hyperlipidemia Acquired hypothyroidism Unspecified hypothyroidism Elevated hemoglobin A1c Other abnormal blood chemistry Gastroesophageal reflux disease without esophagitis Esophageal reflux Mild persistent asthma without complication (HCC) Unspecified asthma Nonrheumatic aortic valve stenosis Aortic valve disorders 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, right (HCC) Neutropenia, drug-induced (HCC) Drug induced neutropenia RSD (reflex sympathetic dystrophy) Reflex sympathetic dystrophy, unspecified Fatty liver Other chronic nonalcoholic liver disease Irritable bowel syndrome with both constipation and diarrhea Advance directive discussed with patient Other specified counseling Encounter for immunization Need for other specified prophylactic vaccination against single bacterial disease Skin cancer screening Screening for malignant neoplasm of the skin Screening for depression [facility] Diagnosis Pre-operative examination- Primary Preoperative examination, unspecified Acquired hypothyroidism Unspecified hypothyroidism Bilateral carotid artery stenosis Occlusion and stenosis of carotid artery without mention of cerebral infarction 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, right (HCC) Elevated hemoglobin A1c Other abnormal blood chemistry History of skin cancer Personal history of other malignant neoplasm of skin Irritable bowel syndrome with both constipation and diarrhea Mild persistent asthma without complication (HCC) Unspecified asthma Mixed hyperlipidemia RSD (reflex sympathetic dystrophy) Reflex sympathetic dystrophy, unspecified Class 1 obesity due to excess calories without serious comorbidity with body mass index (BMI) of 30.0 to 30.9 in adult Mild intermittent asthma with acute exacerbation (HCC)- Primary Unspecified asthma, with exacerbation documented in this encounter [facility]* Diagnosis Pre-operative examination- Primary Preoperative examination, unspecified Acquired hypothyroidism Unspecified hypothyroidism Bilateral carotid artery stenosis Occlusion and stenosis of carotid artery without mention of cerebral infarction 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, right (HCC) Elevated hemoglobin A1c Other abnormal blood chemistry History of skin cancer Personal history of other malignant neoplasm of skin Irritable bowel syndrome with both constipation and diarrhea Mild persistent asthma without complication (HCC) Unspecified asthma Mixed hyperlipidemia RSD (reflex sympathetic dystrophy) Reflex sympathetic dystrophy, unspecified Class 1 obesity due to excess calories without serious comorbidity with body mass index (BMI) of 30.0 to 30.9 in adult URI, acute- Primary Acute upper respiratory infections of unspecified site Mild intermittent asthma with acute exacerbation (HCC) Unspecified asthma, with exacerbation URI, acute Acute upper respiratory infections of unspecified site documented in this encounter [facility] note* Diagnosis Pre-operative examination- Primary Preoperative examination, unspecified Acquired hypothyroidism Unspecified hypothyroidism Bilateral carotid artery stenosis Occlusion and stenosis of carotid artery without mention of cerebral infarction 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, right (HCC) Elevated hemoglobin A1c Other abnormal blood chemistry History of skin cancer Personal history of other malignant neoplasm of skin Irritable bowel syndrome with both constipation and diarrhea Mild persistent asthma without complication (HCC) Unspecified asthma Mixed hyperlipidemia RSD (reflex sympathetic dystrophy) Reflex sympathetic dystrophy, unspecified Class 1 obesity due to excess calories without serious comorbidity with body mass index (BMI) of 30.0 to 30.9 in adult URI, acute Acute upper respiratory infections of unspecified site documented in this encounter [facility] note* Diagnosis Pre-operative examination- Primary Preoperative examination, unspecified Acquired hypothyroidism Unspecified hypothyroidism Bilateral carotid artery stenosis Occlusion and stenosis of carotid artery without mention of cerebral infarction 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, right (HCC) Elevated hemoglobin A1c Other abnormal blood chemistry History of skin cancer Personal history of other malignant neoplasm of skin Irritable bowel syndrome with both constipation and diarrhea Mild persistent asthma without complication (HCC) Unspecified asthma Mixed hyperlipidemia RSD (reflex sympathetic dystrophy) Reflex sympathetic dystrophy, unspecified Class 1 obesity due to excess calories without serious comorbidity with body mass index (BMI) of 30.0 to 30.9 in adult Encounter for screening for osteoporosis Special screening for osteoporosis documented in this encounter [facility] note* Diagnosis Pre-operative examination- Primary Preoperative examination, unspecified Acquired hypothyroidism Unspecified hypothyroidism Bilateral carotid artery stenosis Occlusion and stenosis of carotid artery without mention of cerebral infarction 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, right (HCC) Elevated hemoglobin A1c Other abnormal blood chemistry History of skin cancer Personal history of other malignant neoplasm of skin Irritable bowel syndrome with both constipation and diarrhea Mild persistent asthma without complication (HCC) Unspecified asthma Mixed hyperlipidemia RSD (reflex sympathetic dystrophy) Reflex sympathetic dystrophy, unspecified Class 1 obesity due to excess calories without serious comorbidity with body mass index (BMI) of 30.0 to 30.9 in adult PVC (premature ventricular contraction) Other premature beats documented in this encounter [facility] note* Diagnosis Pre-operative examination- Primary Preoperative examination, unspecified Acquired hypothyroidism Unspecified hypothyroidism Bilateral carotid artery stenosis Occlusion and stenosis of carotid artery without mention of cerebral infarction 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, right (HCC) Elevated hemoglobin A1c Other abnormal blood chemistry History of skin cancer Personal history of other malignant neoplasm of skin Irritable bowel syndrome with both constipation and diarrhea Mild persistent asthma without complication (HCC) Unspecified asthma Mixed hyperlipidemia RSD (reflex sympathetic dystrophy) Reflex sympathetic dystrophy, unspecified Class 1 obesity due to excess calories without serious comorbidity with body mass index (BMI) of 30.0 to 30.9 in adult Acute right eye pain- Primary Pain in or around eye Pain of right eye Pain in or around eye Medication management Encounter for long-term (current) use of other medications Acute right eye pain Pain in or around eye Pain of right eye Pain in or around eye documented in this encounter [facility] note* Diagnosis Pre-operative examination- Primary Preoperative examination, unspecified Acquired hypothyroidism Unspecified hypothyroidism Bilateral carotid artery stenosis Occlusion and stenosis of carotid artery without mention of cerebral infarction 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, right (HCC) Elevated hemoglobin A1c Other abnormal blood chemistry History of skin cancer Personal history of other malignant neoplasm of skin Irritable bowel syndrome with both constipation and diarrhea Mild persistent asthma without complication (HCC) Unspecified asthma Mixed hyperlipidemia RSD (reflex sympathetic dystrophy) Reflex sympathetic dystrophy, unspecified Class 1 obesity due to excess calories without serious comorbidity with body mass index (BMI) of 30.0 to 30.9 in adult Acute right eye pain Pain in or around eye Pain of right eye Pain in or around eye documented in this encounter [facility] note* Diagnosis Pre-operative examination- Primary Preoperative examination, unspecified Acquired hypothyroidism Unspecified hypothyroidism Bilateral carotid artery stenosis Occlusion and stenosis of carotid artery without mention of cerebral infarction 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, right (HCC) Elevated hemoglobin A1c Other abnormal blood chemistry History of skin cancer Personal history of other malignant neoplasm of skin Irritable bowel syndrome with both constipation and diarrhea Mild persistent asthma without complication (HCC) Unspecified asthma Mixed hyperlipidemia RSD (reflex sympathetic dystrophy) Reflex sympathetic dystrophy, unspecified Class 1 obesity due to excess calories without serious comorbidity with body mass index (BMI) of 30.0 to 30.9 in adult Encounter for gynecological examination (general) (routine) without abnormal findings Encounter for screening mammogram for breast cancer documented in this encounter [facility] note* Diagnosis Pre-operative examination- Primary Preoperative examination, unspecified Acquired hypothyroidism Unspecified hypothyroidism Bilateral carotid artery stenosis Occlusion and stenosis of carotid artery without mention of cerebral infarction 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, right (HCC) Elevated hemoglobin A1c Other abnormal blood chemistry History of skin cancer Personal history of other malignant neoplasm of skin Irritable bowel syndrome with both constipation and diarrhea Mild persistent asthma without complication (HCC) Unspecified asthma Mixed hyperlipidemia RSD (reflex sympathetic dystrophy) Reflex sympathetic dystrophy, unspecified Class 1 obesity due to excess calories without serious comorbidity with body mass index (BMI) of 30.0 to 30.9 in adult Constipation, unspecified constipation type- Primary documented in this encounter [facility] note* Diagnosis Pre-operative examination- Primary Preoperative examination, unspecified Acquired hypothyroidism Unspecified hypothyroidism Bilateral carotid artery stenosis Occlusion and stenosis of carotid artery without mention of cerebral infarction 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, right (HCC) Elevated hemoglobin A1c Other abnormal blood chemistry History of skin cancer Personal history of other malignant neoplasm of skin Irritable bowel syndrome with both constipation and diarrhea Mild persistent asthma without complication (HCC) Unspecified asthma Mixed hyperlipidemia RSD (reflex sympathetic dystrophy) Reflex sympathetic dystrophy, unspecified Class 1 obesity due to excess calories without serious comorbidity with body mass index (BMI) of 30.0 to 30.9 in adult Foot pain, left- Primary Pain in limb Fall, initial encounter [facility] Diagnosis Pre-operative examination- Primary Preoperative examination, unspecified Acquired hypothyroidism Unspecified hypothyroidism Bilateral carotid artery stenosis Occlusion and stenosis of carotid artery without mention of cerebral infarction 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, right (HCC) Elevated hemoglobin A1c Other abnormal blood chemistry History of skin cancer Personal history of other malignant neoplasm of skin Irritable bowel syndrome with both constipation and diarrhea Mild persistent asthma without complication (HCC) Unspecified asthma Mixed hyperlipidemia RSD (reflex sympathetic dystrophy) Reflex sympathetic dystrophy, unspecified Class 1 obesity due to excess calories without serious comorbidity with body mass index (BMI) of 30.0 to 30.9 in adult Family history of brain aneurysm Family history of stroke (cerebrovascular) 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, unspecified site documented in this encounter [facility] note* Diagnosis Pre-operative examination- Primary Preoperative examination, unspecified Acquired hypothyroidism Unspecified hypothyroidism Bilateral carotid artery stenosis Occlusion and stenosis of carotid artery without mention of cerebral infarction 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, right (HCC) Elevated hemoglobin A1c Other abnormal blood chemistry History of skin cancer Personal history of other malignant neoplasm of skin Irritable bowel syndrome with both constipation and diarrhea Mild persistent asthma without complication (HCC) Unspecified asthma Mixed hyperlipidemia RSD (reflex sympathetic dystrophy) Reflex sympathetic dystrophy, unspecified Class 1 obesity due to excess calories without serious comorbidity with body mass index (BMI) of 30.0 to 30.9 in adult Brain aneurysm (HCC)- Primary Cerebral aneurysm, nonruptured [facility]* Diagnosis Pre-operative examination- Primary Preoperative examination, unspecified Acquired hypothyroidism Unspecified hypothyroidism Bilateral carotid artery stenosis Occlusion and stenosis of carotid artery without mention of cerebral infarction 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, right (HCC) Elevated hemoglobin A1c Other abnormal blood chemistry History of skin cancer Personal history of other malignant neoplasm of skin Irritable bowel syndrome with both constipation and diarrhea Mild persistent asthma without complication (HCC) Unspecified asthma Mixed hyperlipidemia RSD (reflex sympathetic dystrophy) Reflex sympathetic dystrophy, unspecified Class 1 obesity due to excess calories without serious comorbidity with body mass index (BMI) of 30.0 to 30.9 in adult Brain aneurysm (HCC)- Primary Cerebral aneurysm, nonruptured Family history of brain aneurysm Family history of stroke (cerebrovascular) documented in this encounter [facility] note* Diagnosis Pre-operative examination- Primary Preoperative examination, unspecified Acquired hypothyroidism Unspecified hypothyroidism Bilateral carotid artery stenosis Occlusion and stenosis of carotid artery without mention of cerebral infarction 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, right (HCC) Elevated hemoglobin A1c Other abnormal blood chemistry History of skin cancer Personal history of other malignant neoplasm of skin Irritable bowel syndrome with both constipation and diarrhea Mild persistent asthma without complication (HCC) Unspecified asthma Mixed hyperlipidemia RSD (reflex sympathetic dystrophy) Reflex sympathetic dystrophy, unspecified Class 1 obesity due to excess calories without serious comorbidity with body mass index (BMI) of 30.0 to 30.9 in adult Family history of brain aneurysm- Primary Family history of stroke (cerebrovascular) 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, unspecified site Family history of brain aneurysm Family history of stroke (cerebrovascular) 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, unspecified site [facility] Diagnosis Pre-operative examination- Primary Preoperative examination, unspecified Acquired hypothyroidism Unspecified hypothyroidism Bilateral carotid artery stenosis Occlusion and stenosis of carotid artery without mention of cerebral infarction 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, right (HCC) Elevated hemoglobin A1c Other abnormal blood chemistry History of skin cancer Personal history of other malignant neoplasm of skin Irritable bowel syndrome with both constipation and diarrhea Mild persistent asthma without complication (HCC) Unspecified asthma Mixed hyperlipidemia RSD (reflex sympathetic dystrophy) Reflex sympathetic dystrophy, unspecified Class 1 obesity due to excess calories without serious comorbidity with body mass index (BMI) of 30.0 to 30.9 in adult Palpitations- Primary Hyperlipidemia, unspecified hyperlipidemia type documented in this encounter [facility] for referral (narrative)* Diagnostic Procedure Only (Routine) - Authorized Specialty Diagnoses / Procedures Referred By Orion t Referred To Contact BR IMAGING Diagnoses Mass of upper outer quadrant of left breast Breast cancer screening, high risk patient Procedures US BREAST LTD LT US BREAST UNI REAL TIME WITH IMAGE LIMITED Bala Wolf, [address] [place] [address] Br Imaging [address] [place] [address] Referral ID Status Reason Start Date Expiration Date Visits Requested Visits Authorized [id number] Authorized Auto-Generat ed Referral 11/02/2021 12/02/2022 1 1 * Diagnostic Procedure Only (Routine) - Authorized Specialty Diagnoses / Procedures Referred By Contac t Referred To Contact BR IMAGING Diagnoses Mass of upper outer quadrant of left breast Breast cancer screening, high risk patient Procedures YAQUELIN DIAGNOSTIC BILAT DIAGNOSTIC MAMMOGRAPHY COMPUTER-AIDED DETCJ BI Bala Wolf, DO [address] [place] [address] [facility] Imaging [address] [place] [address] Referral ID Status Reason Start Date Expiration Date Visits Requested Visits Authorized [id number] Authorized Auto-Generat ed Referral 11/02/2021 12/02/2022 1 1 [facility] for referral (narrative)* Diagnostic Procedure Only (Routine) - Closed Specialty Diagnoses / Procedures Referred By Contac t Referred To Contact BR IMAGING Diagnoses Mass of upper outer quadrant of left breast Breast cancer screening, high risk patient Procedures YAQUELIN DIAGNOSTIC BILAT DIAGNOSTIC MAMMOGRAPHY COMPUTER-AIDED DETCJ BI Bala Wolf, DO [address] [place] [address] Br Imaging [address] [place] [address] Referral ID Status Reason Start Date Expiration Date V isits Requested Visits Authorized [id number] Closed Auto-Generate d Referral 11/02/2021 12/02/2022 1 1 [facility] for referral (narrative)* Diagnostic Procedure Only (Routine) - Closed Specialty Diagnoses / Procedures Referred By Contac t Referred To Contact BR IMAGING Diagnoses Mass of upper outer quadrant of left breast Breast cancer screening, high risk patient Procedures US BREAST LTD LT US BREAST UNI REAL TIME WITH IMAGE LIMITED Bala Wolf, DO [address] [place] [address] [facility] [address] [place] [address] Referral ID Status Reason Start Date Expiration Date V isits Requested Visits Authorized [id number] Closed Auto-Generate d Referral 11/02/2021 12/02/2022 1 1 [facility] for referral (narrative)* Diagnostic Procedure Only (Routine) - Authorized Specialty Diagnoses / Procedures [facility] MOLECULAR & FUNCTIONAL IMAGING Diagnoses Rib pain on right side Procedures NM BONE WHOLE BODY BONE &/JOINT IMAGING WHOLE BODY Liam Wilkins MD [address] [place] [address] Molecular & Functional Imaging [address] [place] [address] Referral ID Status Reason Start Date Expiration Date Visits Requested Visits Authorized [id number] Authorized Auto-Generat ed Referral 10/25/2022 11/24/2023 1 1 [facility] for referral (narrative)* Diagnostic Procedure Only (Urgent) - Closed Specialty Diagnoses / Procedures Referred By [facility] Referred To Contact XR IMAGING Diagnoses Left shoulder pain, unspecified chronicity Procedures XR SHOULDER GENERAL 3V OR MORE AP/TRUE AP/OTHER LEFT RADEX SHOULDER COMPLETE MINIMUM 2 VIEWS Liam Wilkins MD [address] [place] [address] [place] [address] Referral ID Status Reason Start Date Expiration Date V isits Requested Visits Authorized [id number] Closed Auto-Generate d Referral 04/06/2023 05/05/2024 1 1 * MRI/CT (Routine) - Authorized Specialty Diagnoses / Procedures [facility] Ref[facility] To Contact MR IMAGING Diagnoses Left shoulder pain, unspecified chronicity Procedures MRI SHOULDER WO IVCON LEFT MRI ANY JT UPPER EXTREMITY W/O CONTRAST MATRL Liam Wilkins MD [address] [place] [address] Mr Imaging [facility]95 Referral ID Status Reason Start Date Expiration Date Visits Requested Visits Authorized [id number] Authorized Auto-Generat ed Referral 05/05/2024 1 1 [facility] for referral (narrative)* Diagnostic Procedure Only (Routine) - Closed Specialty Diagnoses / Procedures [facility] To Contact MOLECULAR & FUNCTIONAL IMAGING Diagnoses Rib pain on right side Procedures NM BONE WHOLE BODY BONE &/JOINT IMAGING WHOLE BODY Liam Wilkins MD [facility] [place] [address] Molecular & Functional Imaging [address] [place] [address] Referral ID Status Reason Start Date Expiration Date V isits Requested Visits Authorized [id number] Closed Auto-Generate d Referral 10/25/2022 11/24/2023 1 1 [facility] for referral (narrative)* Outpatient Procedure (Routine) - Authorized Specialty Diagnoses / Procedures [facility] Diagnoses Bilateral carotid artery stenosis Procedures US CAROTID ARTERIES STEPHEN [facility] DUPLEX SCAN EXTRACRANIAL ART COMPL BI STUDY Liam Wilkins MD [address] [place] [address] [facility] [place] [address] [place] [address] Referral ID Status Reason Start Date Expiration Date Visits Requested Visits Authorized [id number] Authorized Auto-Generat ed Referral 10/17/2023 10/16/2024 1 1 [facility] for referral (narrative)* Outpatient Procedure (Routine) - Authorized Specialty Diagnoses / Procedures [facility] Ref[facility] To [facility] Diagnoses Altered bowel habits Procedures COLONOSCOPY DIAGNOSTIC COLONOSCOPY FLX DX W/COLLJ SPEC WHEN PFDianna Aguirre, MD [address] [place] [address] [facility] [place] [address] [place] [address] Referral ID Status Reason Start Date Expiration Date Visits Requested Visits Authorized [id number] Authorized Auto-Generat ed Referral 11/09/2023 11/08/2024 1 1 [facility] for referral (narrative)* Diagnostic Procedure Only (Routine) - Pending Review Specialty Diagnoses / Procedures Referred By Contac t Referred To Contact BR IMAGING Diagnoses Encounter for screening mammogram for breast cancer Procedures YAQUELIN SCREENING W SHAGGY SCREENING DIGITAL BREAST TOMOSYNTHESIS BI SCREENING MAMMOGRAPHY BI 2-VIEW BREAST INC CAD Sangeetha South MD [address] [place] [address] Br Imaging [address] [place] [address] Referral ID Status Reason Start Date Expiration Date Visits Requested Visits Authorized [id number] Pending Review Auto-Generat ed Referral 11/13/2023 12/12/2024 1 1 [facility] for referral (narrative)* Diagnostic Procedure Only (Routine) - Closed Specialty Diagnoses / Procedures Referred By Contac t Referred To Contact BR IMAGING Diagnoses Abnormal mammogram of left breast Procedures YAQUELIN DIAGNOSTIC LEFT DIAGNOSTIC MAMMOGRAPHY COMPUTER-AIDED DETCJ [facility] Sangeetha South MD [address] [place] [address] Br Imaging [address] [place] [address] Referral ID Status Reason Start Date Expiration Date V isits Requested Visits Authorized [id number] Closed Auto-Generate d Referral 12/04/2023 01/02/2025 1 1 T [facility] for referral (narrative)* Diagnostic Procedure Only (Urgent) - Closed Specialty Diagnoses / Procedures Referred By Contac t Referred To Contact XR IMAGING Diagnoses Left shoulder pain, unspecified chronicity Procedures XR SHOULDER GENERAL 3V OR MORE AP/TRUE AP/OTHER LEFT RADEX SHOULDER COMPLETE MINIMUM 2 VIEWS Liam Wilkins MD [address] [place] [address] [place] [address] Referral ID Status Reason Start Date Expiration Date V isits Requested Visits Authorized [id number] Closed Auto-Generate d Referral 04/06/2023 05/05/2024 1 1 [facility] for referral (narrative)* Diagnostic Procedure Only (Routine) - Closed Specialty Diagnoses / Procedures Referred By Contac t Referred To Contact XR IMAGING Diagnoses Flank pain Rib pain on right side Procedures XR RIBS/CHEST 3V AP RIB/OBLS/CXR RIGHT RADEX RIBS UNI W/POSTEROANT CH MINIMUM 3 VIEWS Obdulia Rowley PA-C [address] [place] [id number] [place] [address] Referral ID Status Reason Start Date Expiration Date V isits Requested Visits Authorized [id number] Closed Auto-Generate d Referral 09/22/2022 10/22/2023 1 1 * Diagnostic Procedure Only (Routine) - Closed Specialty Diagnoses / Procedures Referred By Contac t Referred To Contact XR IMAGING Diagnoses Flank pain Procedures XR ABDOMEN 1V SUPINE RADIOLOGIC EXAM ABDOMEN 1 VIEW Obdulia Rowley PA-C [address] [place] [address] [place] [address] Referral ID Status Reason Start Date Expiration Date V isits Requested Visits Authorized [id number] Closed Auto-Generate d Referral 09/22/2022 10/22/2023 1 1 [facility] for referral (narrative)* Diagnostic Procedure Only (Routine) - Closed Specialty Diagnoses / Procedures Referred By Contac t Referred To Contact XR IMAGING Diagnoses Neck pain Procedures XR CERV OTHER 4V AP/LAT/OBL RADEX SPINE CERVICAL 4 OR 5 VIEWS Liam Wilkins MD [address] [place] [address] Xr Imaging [facility]95 Referral ID Status Reason Start Date Expiration Date V isits Requested Visits Authorized [id number] Closed Auto-Generate d Referral 11/08/2021 12/08/2022 1 1 [facility] for referral (narrative)* Outpatient Procedure (Routine) - New Request Specialty Diagnoses / Procedures Referred By Contac t Referred To Contact [facility] Diagnoses Dizziness PVC (premature ventricular contraction) Procedures ECG COMPLETE ECG ROUTINE ECG W/LEAST 12 LDS W/I&R Jojo Anderson APRN.CNP [address] [place] [address] [facility] [place] [address] [place], [place] [id number] Referral ID Status Reason Start Date Expiration Date Visits Requested Visits Authorized [id number] New Request Auto-Generat ed Referral 06/16/2025 1 1 [facility] for visit Narrative* Diagnostic Procedure Only (Routine) - Closed Specialty Diagnoses / Procedures [facility] Ref[facility] To Contact MOLECULAR & FUNCTIONAL IMAGING Diagnoses Rib pain on right side Procedures NM BONE WHOLE BODY BONE &/JOINT IMAGING WHOLE BODY Liam Wilkins MD [address] [place] [address] Molecular & Functional Imaging [address] [place] [address] Referral ID Status Reason Start Date Expiration Date V isits Requested Visits Authorized [id number] Closed Auto-Generate d Referral 10/25/2022 11/24/2023 1 1 [facility] for visit Narrative* Diagnostic Procedure Only (Routine) - Authorized Specialty Diagnoses / Procedures Referred By Contac t Referred To Contact BR IMAGING Diagnoses Abnormal mammogram of left breast Procedures US BREAST LTD LEFT US BREAST UNI REAL TIME WITH IMAGE LIMITED Sangeetha South MD [address] [place] [address] Br Imaging [address] [place] [address] Referral ID Status Reason Start Date Expiration Date Visits Requested Visits Authorized [id number] Authorized Auto-Generat ed Referral 12/04/2023 01/02/2025 1 1 [facility] for visit Narrative* Diagnostic Procedure Only (Routine) - Closed Specialty Diagnoses / Procedures Referred By Contac t Referred To Contact BR IMAGING Diagnoses Abnormal mammogram of left breast Procedures YAQUELIN DIAGNOSTIC LEFT DIAGNOSTIC MAMMOGRAPHY COMPUTER-AIDED DETCJ [facility] Sangeetha South MD [address] [place] [address] Br Imaging [address] [place] [address] Referral ID Status Reason Start Date Expiration Date V isits Requested Visits Authorized [id number] Closed Auto-Generate d Referral 12/04/2023 01/02/2025 1 1 [facility] for visit Narrative* Diagnostic Procedure Only (Urgent) - Closed Specialty Diagnoses / Procedures Referred By Contac t Referred To Contact XR IMAGING Diagnoses Left shoulder pain, unspecified chronicity Procedures XR SHOULDER GENERAL 3V OR MORE AP/TRUE AP/OTHER LEFT RADEX SHOULDER COMPLETE MINIMUM 2 VIEWS Liam Wilkins MD [address] [place] [address] [place] [address] Referral ID Status Reason Start Date Expiration Date V isits Requested Visits Authorized [id number] Closed Auto-Generate d Referral 04/06/2023 05/05/2024 1 1 [facility] for visit Narrative* Diagnostic Procedure Only (Routine) - Closed Specialty Diagnoses / Procedures Referred By Contac t Referred To Contact XR IMAGING Diagnoses Flank pain Rib pain on right side Procedures XR RIBS/CHEST 3V AP RIB/OBLS/CXR RIGHT RADEX RIBS UNI W/POSTEROANT CH MINIMUM 3 VIEWS Obdulia Rowley PA-C [address] [place] [address] [place] [address] Referral ID Status Reason Start Date Expiration Date V isits Requested Visits Authorized [id number] Closed Auto-Generate d Referral 09/22/2022 10/22/2023 1 1 [facility] for visit Narrative* Diagnostic Procedure Only (Routine) - Closed Specialty Diagnoses / Procedures Referred By Contac t Referred To Contact XR IMAGING Diagnoses Neck pain Procedures XR CERV OTHER 4V AP/LAT/OBL RADEX SPINE CERVICAL 4 OR 5 VIEWS Liam Wilkins MD [address] [place] [address] [place] [address] Referral ID Status Reason Start Date Expiration Date V isits Requested Visits Authorized [id number] Closed Auto-Generate d Referral 11/08/2021 12/08/2022 1 1 [facility] for visit Narrative* Diagnostic Procedure Only (Routine) - Closed Specialty Diagnoses / Procedures Referred By Contac t Referred To Contact XR IMAGING Diagnoses Encounter for screening for osteoporosis Procedures DXA-AXIAL SKELETON DXA BONE DENSITY STUDY SITES AXIAL Raman Brooks, LARGE ENGINE ASSEMBLER.INTEL RECRUITER [address] [place] [address] Phone: tel: fax: [place] [address] Referral ID Status Reason Start Date Expiration Date V isits Requested Visits Authorized [id number] Closed Auto-Generate d Referral 11/12/2024 12/12/2025 1 1 [facility] for visit Narrative* MRI/CT (Urgent) - Closed Specialty Diagnoses / Procedures Referred By Contac t Referred To Contact CT IMAGING Diagnoses Acute right eye pain Pain of right eye Procedures CT ORBITS W IVCON CT ORBIT SELLA/POST FOSSA/EAR W/CONTRAST MATRL Liam Wilkins MD [address] [place] [address] Phone: tel: fax: [place] [address] Referral ID Status Reason Start Date Expiration Date V isits Requested Visits Authorized [id number] Closed Auto-Generate d Referral 12/31/2024 01/30/2026 1 1 [facility] for visit Narrative* Diagnostic Procedure Only (Routine) - Closed Specialty Diagnoses / Procedures Referred By Contac t Referred To Contact BR IMAGING Diagnoses Encounter for gynecological examination (general) (routine) without abnormal findings Encounter for screening mammogram for breast cancer Procedures YAQUELIN SCREENING W SHAGGY SCREENING DIGITAL BREAST TOMOSYNTHESIS BI SCREENING MAMMOGRAPHY BI 2-VIEW BREAST INC CAD Raman Maciel APRN.INTEL RECRUITER [address] [place] [address] Phone: tel: fax: [facility] [address] [place] [address] Referral ID Status Reason Start Date Expiration Date V isits Requested Visits Authorized [id number] Closed Auto-Generate d Referral 11/12/2024 12/12/2025 1 1 [facility] for visit Narrative* Diagnostic Procedure Only (Routine) - Closed Specialty Diagnoses / Procedures Referred By Orion aguilar Referred To Contact [facility] Diagnoses Constipation, unspecified constipation type Procedures PELVIC US WHI US PELVIC NONOBSTETRIC REAL-TIME IMAGE COMPLETE Raman Maciel APRN.INTEL RECRUITER [address] [place] [address] Phone: tel: fax: [facility] [address] [place] [address] Referral ID Status Reason Start Date Expiration Date V isits Requested Visits Authorized [id number] Closed Auto-Generate d Referral 11/12/2024 11/12/2025 1 1 [facility] for visit Narrative* Diagnostic Procedure Only (Urgent) - Closed Specialty Diagnoses / Procedures Referred By Orion aguilar Referred To Contact XR IMAGING Diagnoses Foot pain, left Fall, initial encounter Procedures XR FOOT GENERAL 3V AP/LAT/OBL LEFT RADEX FOOT COMPLETE MINIMUM 3 VIEWS Obdulia Rowley PA-C [address] [place] [address] Phone: tel: fax: [place] [address] Referral ID Status Reason Start Date Expiration Date V isits Requested Visits Authorized [id number] Closed Auto-Generate d Referral 01/21/2025 02/20/2026 1 1 [facility] for visit Narrative* MRI/CT (Routine) - Closed Specialty Diagnoses / Procedures Referred By Orion aguilar Referred To Contact MR IMAGING Diagnoses Family history of brain aneurysm Vascular anomaly (HCC) Procedures MRA BRAIN WO/W IVCON MRA; HEAD W & WO CONTRAST Liam Wilkins MD [address] [place] [address] Phone: tel: fax: [place] [address] Referral ID Status Reason Start Date Expiration Date V isits Requested Visits Authorized [id number] Closed Auto-Generate d Referral 12/31/2024 01/30/2026 1 1 [facility] Advance Directives Documents on File Type Date Recorded Patient Dealer Compliance Representative Expl anation Advance Directive(s) 02/10/2019 9:48 AM Advance Directive(s) 09/06/2016 6:43 AM Advance Directive(s) 01/06/2016 10:46 AM Advance Directive(s) 12/28/2015 12:45 PM Advance Directive(s) 05/25/2011 6:49 AM Documents on File Type Date Recorded Patient Dealer Compliance Representative Expl anation Advance Directive(s) 02/10/2019 9:48 AM Advance Directive(s) 09/06/2016 6:43 AM Advance Directive(s) 01/06/2016 10:46 AM Advance Directive(s) 12/28/2015 12:45 PM Advance Directive(s) 05/25/2011 6:49 AM Documents on File Type Date Recorded 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 Dealer Compliance Representative Expl anation Advance Directive(s) 05/25/2011 6:49 AM Documents on File Type Date Recorded Patient Dealer Compliance Representative Expl anation Advance Directive(s) 05/25/2011 6:49 AM Reason for Referral Specialty Diagnoses / Procedures Referred By Contac t Referred To Contact [facility] Diagnoses Neck pain Procedures CONSULT TO PHYSICAL THERAPY PHYSICAL THERAPY EVALUATION HIGH COMPLEX 45 MINS Liam Wilkins MD [address] [place] [address] [facility] [place] [address] [place] [address] Referral ID Status Reason Start Date Expiration Date Visits Requested Visits Authorized [id number] Pending Review Auto-Generat ed Referral 11/08/2021 11/08/2022 1 1 Specialty Diagnoses / Procedures Referred By Contac t Referred To Contact XR IMAGING Diagnoses Neck pain Procedures XR CERV OTHER 4V AP/LAT/OBL RADEX SPINE CERVICAL 4 OR 5 VIEWS Liam Wilkins MD [address] [place] [address] Xr Imaging Referral ID Status Reason Start Date Expiration Date V isits Requested Visits Authorized [id number] Closed Auto-Generate d Referral 11/08/2021 12/08/2022 1 1 Specialty Diagnoses / Procedures Referred By Contac t Referred To Contact [facility] Diagnoses Dizziness Procedures PT REHAB FOLLOW UP ORDER THERAPEUTIC EXERCISES RE, EA 15 MIN. Alex Mendenhall, PT [address] [place] [address] [facility] [address] [address] Referral ID Status Reason Start Date Expiration Date V isits Requested Visits Authorized [id number] Closed PCP Requested Referral Auto-Generated Referral 06/25/2021 11/22/2021 0 0 Specialty Diagnoses / Procedures Referred By Contac t Referred To Contact [facility] Diagnoses Dizziness Procedures PT REHAB FOLLOW UP ORDER THERAPEUTIC EXERCISES RE, EA 15 MIN. Alex Mendenhall, PT [facility] [place] [address] [place] [address] Referral ID Status Reason Start Date Expiration Date V isits Requested Visits Authorized [id number] Closed PCP Requested Referral Auto-Generated Referral 12/16/2021 03/16/2022 1 1 Specialty Diagnoses / Procedures Referred By Contac t Referred To Contact MR IMAGING Diagnoses Cervicalgia Procedures MRI CERVICAL SPINE WO IVCON MRI SPINAL CANAL CERVICAL W/O CONTRAST MATRL Liam Wilkins MD [address] [place] [address] Mr Imaging Referral ID Status Reason Start Date Expiration Date Visits Requested Visits Authorized [id number] Authorized Auto-Generat ed Referral 03/03/2022 04/02/2023 1 1 Referral ID Status Reason Start Date Expiration Date V isits Requested Visits Authorized [id number] Closed Auto-Generate d Referral 03/03/2022 04/02/2023 1 1 Referral ID Status Reason Start Date Expiration Date Visits Requested Visits Authorized [id number] Pending Review PCP Requested Referral Auto-Generate d Referral 04/25/2022 07/24/2022 1 1 Specialty Diagnoses / Procedures Referred By Contac t Referred To Contact Pain Management Diagnoses Neural foraminal stenosis of cervical spine Cervicalgia Procedures CONSULT TO PAIN MGT OFFICE/OUTPATIENT [facility] 60-74 MINUTES Liam Wilkins MD [address] [place] [address] Referral ID Status Reason Start Date Expiration Date Visits Requested Visits Authorized [id number] Authorized PCP Requested Referral 03/21/2022 03/21/2023 1 1 Referral ID Status Reason Start Date Expiration Date Visits Requested Visits Authorized [id number] Authorized Auto-Generat ed Referral 06/25/2021 06/24/2022 20 20 Specialty Diagnoses / Procedures Referred By Contac t Referred To Contact [facility] Diagnoses Neck pain Dizziness Procedures PT REHAB FOLLOW UP ORDER THERAPEUTIC EXERCISES RE, EA 15 MIN. Alex Mendenhall, PT [facility] [place] [address] [place] [address] Referral ID Status Reason Start Date Expiration Date Visits Requested Visits Authorized [id number] Pending Review PCP Requested Referral Auto-Generate d Referral 05/30/2022 08/28/2022 1 1 Specialty Diagnoses / Procedures Referred By Contac t Referred To Contact [facility] [place] Diagnoses Neural foraminal stenosis of cervical spine Neck pain Procedures CONSULT TO [facility] OFFICE/OUTPATIENT [facility] 60-74 MINUTES Liam Wilkins MD [address] [place] [address] Referral ID Status Reason Start Date Expiration Date Visits Requested Visits Authorized [id number] Authorized PCP Requested Referral 07/24/2022 07/24/2023 1 1 Specialty Diagnoses / Procedures Referred By Contac t Referred To Contact CT IMAGING Diagnoses Mass of soft tissue of neck Procedures CT NECK SOFT TISSUE W IVCON CT SOFT TISSUE NECK W/CONTRAST MATERIAL Liam Wilkins MD [address] [place] [address] Ct Imaging Referral ID Status Reason Start Date Expiration Date Visits Requested Visits Authorized [id number] Authorized Auto-Generat ed Referral 09/09/2022 10/09/2023 1 1 Specialty Diagnoses / Procedures Referred By Contac t Referred To Contact CT IMAGING Diagnoses Flank pain Procedures CT FLANK WO IVCON CT ABD & PELVIS W/O CONTRAST Obdulia Rowley PA-C [address] [place] [address] Ct Imaging Referral ID Status Reason Start Date Expiration Date Visits Requested Visits Authorized [id number] Authorized Auto-Generat ed Referral 09/22/2022 10/22/2023 1 1 Specialty Diagnoses / Procedures Referred By Contac t Referred To Contact XR IMAGING Diagnoses Flank pain Rib pain on right side Procedures XR RIBS/CHEST 3V AP RIB/OBLS/CXR RIGHT RADEX RIBS UNI W/POSTEROANT CH MINIMUM 3 VIEWS Obdulia Rowley PA-C [address] [place] [address] Xr Imaging Referral ID Status Reason Start Date Expiration Date V isits Requested Visits Authorized [id number] Closed Auto-Generate d Referral 09/22/2022 10/22/2023 1 1 Specialty Diagnoses / Procedures Referred By Contac t Referred To Contact XR IMAGING Diagnoses Flank pain Procedures XR ABDOMEN 1V SUPINE RADIOLOGIC EXAM ABDOMEN 1 VIEW Obdulia Rowley PA-C [address] [place] [address] Xr Imaging Referral ID Status Reason Start Date Expiration Date V isits Requested Visits Authorized [id number] Closed Auto-Generate d Referral 09/22/2022 10/22/2023 1 1 Specialty Diagnoses / Procedures Referred By Contac t Referred To Contact [facility] Diagnoses Acute pain of left shoulder Procedures CONSULT TO PHYSICAL THERAPY PHYSICAL THERAPY EVALUATION HIGH COMPLEX 45 MINS Liam Wilkins MD [address] [place] [address] [facility] [place] [address] [place] [address] Referral ID Status Reason Start Date Expiration Date Visits Requested Visits Authorized [id number] Pending Review Auto-Generat ed Referral 02/10/2023 02/10/2024 1 1 Specialty Diagnoses / Procedures Referred By Contac t Referred To Contact Orthopedics Diagnoses Tear of left glenoid labrum, initial encounter Incomplete tear of left rotator cuff, unspecified whether traumatic Labral tear of long head of left biceps tendon, initial encounter Procedures CONSULT TO ORTHOPAEDICS OFFICE/OUTPATIENT [facility] MDM 60-74 MINUTES Liam Wilkins MD [address] [place] [address] Referral ID Status Reason Start Date Expiration Date Visits Requested Visits Authorized [id number] Authorized PCP Requested Referral 04/15/2024 1 1 Specialty Diagnoses / Procedures Referred By Contac t Referred To Contact CT IMAGING Diagnoses Flank pain Procedures CT FLANK WO IVCON CT ABD & PELVIS W/O CONTRAST Obdulia Rowley PA-C [address] [place] [address] [place] [address] Referral ID Status Reason Start Date Expiration Date V isits Requested Visits Authorized [id number] Closed Auto-Generate d Referral 09/22/2022 10/22/2023 1 1 Specialty Diagnoses / Procedures Referred By Contac t Referred To Contact CT IMAGING Diagnoses Mass of soft tissue of neck Procedures CT NECK SOFT TISSUE W IVCON CT SOFT TISSUE NECK W/CONTRAST MATERIAL Liam Wilkins MD [address] [place] [address] [place] [address] Referral ID Status Reason Start Date Expiration Date V isits Requested Visits Authorized [id number] Closed Auto-Generate d Referral 09/09/2022 10/09/2023 1 1 Specialty Diagnoses / Procedures Referred By Contac t Referred To Contact [facility] Diagnoses Incomplete tear of left rotator cuff, unspecified whether traumatic Labral tear of long head of left biceps tendon, initial encounter Procedures CONSULT TO PHYSICAL THERAPY PHYSICAL THERAPY EVALUATION HIGH COMPLEX 45 MINS Megha Seymour PA-C [address] [place] [address] [facility] [place] [address] [place] [address] Referral ID Status Reason Start Date Expiration Date Visits Requested Visits Authorized [id number] Pending Review Auto-Generat ed Referral 3 05/13/2024 1 1 Specialty Diagnoses / Procedures Referred By Contac t Referred To Contact General Surgery Diagnoses Colon cancer screening Procedures CONSULT TO GENERAL SURGERY OFFICE/OUTPATIENT [facility] MDM 60 MINUTES Liam Wilkins MD [address] [place] [address] Referral ID Status Reason Start Date Expiration Date V isits Requested Visits Authorized [id number] Closed PCP Requested Referral 10/31/2023 10/30/2024 1 1 Health Concerns Infection Onset Date Last Indicated Resolved Time COVID-19 Rule-Out 03/21/2022 03/21/2022 03/21/2022 10:32 PM EDT Medications Administered Section Inactive Administered Medications - up to 3 most recent administrations Medication Order MAR Action Action Date Dose Rate Site bupivacaine (PF) 0.5 % (5 mg/mL) 20 mg injection 20 mg (4 mL), OTHER, ONCE, 1 dose, On Sun05/23/22 at 1030 Given by [facility] 05/23/2022 10:20 AM EST 20 mg iohexol 300 mg IV injection (OMNIPAQUE 300) 300 mg, OTHER, ONCE, 1 dose, On Sun05/23/22 at 1030 Given by [facility] 05/23/2022 10:20 AM EST 300 mg lidocaine 10 mg/mL (1 %) 100 mg injection (XYLOCAINE) 100 mg, OTHER, ONCE, 1 dose, On Sun05/23/22 at 1030 Given by [facility] 05/23/2022 10:20 AM EST 100 mg Inactive Administered Medications - up to 3 most recent administrations Medication Order MAR Action Action Date Dose Rate Site lidocaine (PF) 10 mg/mL (1 %) 15 mg, triamcinolone acetonide 60 mg OTHER, ONCE, 1 dose, On 02/10/23 at 1200, EXP: Given 02/10/2023 11:42 AM EDT Shoulder, Left Summary Purpose Family History No Family History Records FoundNo Family History Records FoundNo Family History Records FoundNo Family History Records FoundNo Family History Records Found Additional Source Comments Source Comments (unrecognize d section and content) In the event this informatio n is protected by the Federal Confidentiality of Alcohol and Drug Abuse Patient Records regulations: The Federal rules restrict any use of the information to criminally investigate or prosecute any alcohol or drug abuse patient.[facility] the event this information is protected by the Federal Confidentiality of Alcohol and Drug Abuse Patient Records regulations: The Federal rules restrict any use of the information to criminally investigate or prosecute any alcohol or drug abuse patient.[facility] the event this information is protected by the Federal Confidentiality of Alcohol and Drug Abuse Patient Records regulations: The Federal rules restrict any use of the information to criminally investigate or prosecute any alcohol or drug abuse patient.[facility] the event this information is protected by the Federal Confidentiality of Alcohol and Drug Abuse Patient Records regulations: The Federal rules restrict any use of the information to criminally investigate or prosecute any alcohol or drug abuse patient.[facility] the event this information is protected by the Federal Confidentiality of Alcohol and Drug Abuse Patient Records regulations: The Federal rules restrict any use of the information to criminally investigate or prosecute any alcohol or drug abuse patient.[facility] the event this information is protected by the Federal Confidentiality of Alcohol and Drug Abuse Patient Records regulations: The Federal rules restrict any use of the information to criminally investigate or prosecute any alcohol or drug abuse patient.[facility] the event this information is protected by the Federal Confidentiality of Alcohol and Drug Abuse Patient Records regulations: The Federal rules restrict any use of the information to criminally investigate or prosecute any alcohol or drug abuse patient.[facility] the event this information is protected by the Federal Confidentiality of Alcohol and Drug Abuse Patient Records regulations: The Federal rules restrict any use of the information to criminally investigate or prosecute any alcohol or drug abuse patient.[facility] the event this information is protected by the Federal Confidentiality of Alcohol and Drug Abuse Patient Records regulations: The Federal rules restrict any use of the information to criminally investigate or prosecute any alcohol or drug abuse patient.[facility] the event this information is protected by the Federal Confidentiality of Alcohol and Drug Abuse Patient Records regulations: The Federal rules restrict any use of the information to criminally investigate or prosecute any alcohol or drug abuse patient.[facility] the event this information is protected by the Federal Confidentiality of Alcohol and Drug Abuse Patient Records regulations: The Federal rules restrict any use of the information to criminally investigate or prosecute any alcohol or drug abuse patient.[facility] Hospital[facility] the event this information is protected by the Federal Confidentiality of Alcohol and Drug Abuse Patient Records regulations: The Federal rules restrict any use of the information to criminally investigate or prosecute any alcohol or drug abuse patient.[facility] Hospital[facility] the event this information is protected by the Federal Confidentiality of Alcohol and Drug Abuse Patient Records regulations: The Federal rules restrict any use of the information to criminally investigate or prosecute any alcohol or drug abuse patient.[facility] HospitalIn the event this information is protected by the Federal Confidentiality of Alcohol and Drug Abuse Patient Records regulations: The Federal rules restrict any use of the information to criminally investigate or prosecute any alcohol or drug abuse patient.[facility] HospitalIn the event this information is protected by the Federal Confidentiality of Alcohol and Drug Abuse Patient Records regulations: The Federal rules restrict any use of the information to criminally investigate or prosecute any alcohol or drug abuse patient.[facility] Hospital[facility] the event this information is protected by the Federal Confidentiality of Alcohol and Drug Abuse Patient Records regulations: The Federal rules restrict any use of the information to criminally investigate or prosecute any alcohol or drug abuse patient.[facility] HospitalIn the event this information is protected by the Federal Confidentiality of Alcohol and Drug Abuse Patient Records regulations: The Federal rules restrict any use of the information to criminally investigate or prosecute any alcohol or drug abuse patient.[facility] HospitalIn the event this information is protected by the Federal Confidentiality of Alcohol and Drug Abuse Patient Records regulations: The Federal rules restrict any use of the information to criminally investigate or prosecute any alcohol or drug abuse patient.[facility] HospitalIn the event this information is protected by the Federal Confidentiality of Alcohol and Drug Abuse Patient Records regulations: The Federal rules restrict any use of the information to criminally investigate or prosecute any alcohol or drug abuse patient.[facility] HospitalIn the event this information is protected by the Federal Confidentiality of Alcohol and Drug Abuse Patient Records regulations: The Federal rules restrict any use of the information to criminally investigate or prosecute any alcohol or drug abuse patient.[facility] HospitalIn the event this information is protected by the Federal Confidentiality of Alcohol and Drug Abuse Patient Records regulations: The Federal rules restrict any use of the information to criminally investigate or prosecute any alcohol or drug abuse patient.[facility] HospitalIn the event this information is protected by the Federal Confidentiality of Alcohol and Drug Abuse Patient Records regulations: The Federal rules restrict any use of the information to criminally investigate or prosecute any alcohol or drug abuse patient.[facility] HospitalIn the event this information is protected by the Federal Confidentiality of Alcohol and Drug Abuse Patient Records regulations: The Federal rules restrict any use of the information to criminally investigate or prosecute any alcohol or drug abuse patient.[facility] HospitalIn the event this information is protected by the Federal Confidentiality of Alcohol and Drug Abuse Patient Records regulations: The Federal rules restrict any use of the information to criminally investigate or prosecute any alcohol or drug abuse patient.[facility] HospitalIn the event this information is protected by the Federal Confidentiality of Alcohol and Drug Abuse Patient Records regulations: The Federal rules restrict any use of the information to criminally investigate or prosecute any alcohol or drug abuse patient.[facility] HospitalIn the event this information is protected by the Federal Confidentiality of Alcohol and Drug Abuse Patient Records regulations: The Federal rules restrict any use of the information to criminally investigate or prosecute any alcohol or drug abuse patient.[facility] HospitalIn the event this information is protected by the Federal Confidentiality of Alcohol and Drug Abuse Patient Records regulations: The Federal rules restrict any use of the information to criminally investigate or prosecute any alcohol or drug abuse patient.[facility] HospitalIn the event this information is protected by the Federal Confidentiality of Alcohol and Drug Abuse Patient Records regulations: The Federal rules restrict any use of the information to criminally investigate or prosecute any alcohol or drug abuse patient.[facility] HospitalIn the event this information is protected by the Federal Confidentiality of Alcohol and Drug Abuse Patient Records regulations: The Federal rules restrict any use of the information to criminally investigate or prosecute any alcohol or drug abuse patient.[facility] HospitalIn the event this information is protected by the Federal Confidentiality of Alcohol and Drug Abuse Patient Records regulations: The Federal rules restrict any use of the information to criminally investigate or prosecute any alcohol or drug abuse patient.[facility]In the event this information is protected by the Federal Confidentiality of Alcohol and Drug Abuse Patient Records regulations: The Federal rules restrict any use of the information to criminally investigate or prosecute any alcohol or drug abuse patient.[facility]In the event this information is protected by the Federal Confidentiality of Alcohol and Drug Abuse Patient Records regulations: The Federal rules restrict any use of the information to criminally investigate or prosecute any alcohol or drug abuse patient.[facility] HospitalIn the event this information is protected by the Federal Confidentiality of Alcohol and Drug Abuse Patient Records regulations: The Federal rules restrict any use of the information to criminally investigate or prosecute any alcohol or drug abuse patient.[facility] HospitalIn the event this information is protected by the Federal Confidentiality of Alcohol and Drug Abuse Patient Records regulations: The Federal rules restrict any use of the information to criminally investigate or prosecute any alcohol or drug abuse patient.[facility] HospitalIn the event this information is protected by the Federal Confidentiality of Alcohol and Drug Abuse Patient Records regulations: The Federal rules restrict any use of the information to criminally investigate or prosecute any alcohol or drug abuse patient.[facility] HospitalIn the event this information is protected by the Federal Confidentiality of Alcohol and Drug Abuse Patient Records regulations: The Federal rules restrict any use of the information to criminally investigate or prosecute any alcohol or drug abuse patient.[facility] HospitalIn the event this information is protected by the Federal Confidentiality of Alcohol and Drug Abuse Patient Records regulations: The Federal rules restrict any use of the information to criminally investigate or prosecute any alcohol or drug abuse patient.[facility] HospitalIn the event this information is protected by the Federal Confidentiality of Alcohol and Drug Abuse Patient Records regulations: The Federal rules restrict any use of the information to criminally investigate or prosecute any alcohol or drug abuse patient.[facility] HospitalIn the event this information is protected by the Federal Confidentiality of Alcohol and Drug Abuse Patient Records regulations: The Federal rules restrict any use of the information to criminally investigate or prosecute any alcohol or drug abuse patient.[facility] HospitalIn the event this information is protected by the Federal Confidentiality of Alcohol and Drug Abuse Patient Records regulations: The Federal rules restrict any use of the information to criminally investigate or prosecute any alcohol or drug abuse patient.[facility] HospitalIn the event this information is protected by the Federal Confidentiality of Alcohol and Drug Abuse Patient Records regulations: The Federal rules restrict any use of the information to criminally investigate or prosecute any alcohol or drug abuse patient.[facility] HospitalIn the event this information is protected by the Federal Confidentiality of Alcohol and Drug Abuse Patient Records regulations: The Federal rules restrict any use of the information to criminally investigate or prosecute any alcohol or drug abuse patient.[facility] HospitalIn the event this information is protected by the Federal Confidentiality of Alcohol and Drug Abuse Patient Records regulations: The Federal rules restrict any use of the information to criminally investigate or prosecute any alcohol or drug abuse patient.[facility] HospitalIn the event this information is protected by the Federal Confidentiality of Alcohol and Drug Abuse Patient Records regulations: The Federal rules restrict any use of the information to criminally investigate or prosecute any alcohol or drug abuse patient.[facility] HospitalIn the event this information is protected by the Federal Confidentiality of Alcohol and Drug Abuse Patient Records regulations: The Federal rules restrict any use of the information to criminally investigate or prosecute any alcohol or drug abuse patient.[facility] HospitalIn the event this information is protected by the Federal Confidentiality of Alcohol and Drug Abuse Patient Records regulations: The Federal rules restrict any use of the information to criminally investigate or prosecute any alcohol or drug abuse patient.[facility] HospitalIn the event this information is protected by the Federal Confidentiality of Alcohol and Drug Abuse Patient Records regulations: The Federal rules restrict any use of the information to criminally investigate or prosecute any alcohol or drug abuse patient.[facility] HospitalIn the event this information is protected by the Federal Confidentiality of Alcohol and Drug Abuse Patient Records regulations: The Federal rules restrict any use of the information to criminally investigate or prosecute any alcohol or drug abuse patient.[facility] HospitalIn the event this information is protected by the Federal Confidentiality of Alcohol and Drug Abuse Patient Records regulations: The Federal rules restrict any use of the information to criminally investigate or prosecute any alcohol or drug abuse patient.[facility] HospitalIn the event this information is protected by the Federal Confidentiality of Alcohol and Drug Abuse Patient Records regulations: The Federal rules restrict any use of the information to criminally investigate or prosecute any alcohol or drug abuse patient.[facility] HospitalIn the event this information is protected by the Federal Confidentiality of Alcohol and Drug Abuse Patient Records regulations: The Federal rules restrict any use of the information to criminally investigate or prosecute any alcohol or drug abuse patient.[facility] HospitalIn the event this information is protected by the Federal Confidentiality of Alcohol and Drug Abuse Patient Records regulations: The Federal rules restrict any use of the information to criminally investigate or prosecute any alcohol or drug abuse patient.[facility] HospitalIn the event this information is protected by the Federal Confidentiality of Alcohol and Drug Abuse Patient Records regulations: The Federal rules restrict any use of the information to criminally investigate or prosecute any alcohol or drug abuse patient.[facility] HospitalIn the event this information is protected by the Federal Confidentiality of Alcohol and Drug Abuse Patient Records regulations: The Federal rules restrict any use of the information to criminally investigate or prosecute any alcohol or drug abuse patient.[facility] HospitalIn the event this information is protected by the Federal Confidentiality of Alcohol and Drug Abuse Patient Records regulations: The Federal rules restrict any use of the information to criminally investigate or prosecute any alcohol or drug abuse patient.[facility] HospitalIn the event this information is protected by the Federal Confidentiality of Alcohol and Drug Abuse Patient Records regulations: The Federal rules restrict any use of the information to criminally investigate or prosecute any alcohol or drug abuse patient.[facility] HospitalIn the event this information is protected by the Federal Confidentiality of Alcohol and Drug Abuse Patient Records regulations: The Federal rules restrict any use of the information to criminally investigate or prosecute any alcohol or drug abuse patient.[facility] HospitalIn the event this information is protected by the Federal Confidentiality of Alcohol and Drug Abuse Patient Records regulations: The Federal rules restrict any use of the information to criminally investigate or prosecute any alcohol or drug abuse patient.[facility] HospitalIn the event this information is protected by the Federal Confidentiality of Alcohol and Drug Abuse Patient Records regulations: The Federal rules restrict any use of the information to criminally investigate or prosecute any alcohol or drug abuse patient.[facility] HospitalIn the event this information is protected by the Federal Confidentiality of Alcohol and Drug Abuse Patient Records regulations: The Federal rules restrict any use of the information to criminally investigate or prosecute any alcohol or drug abuse patient.[facility] HospitalIn the event this information is protected by the Federal Confidentiality of Alcohol and Drug Abuse Patient Records regulations: The Federal rules restrict any use of the information to criminally investigate or prosecute any alcohol or drug abuse patient.[facility] HospitalIn the event this information is protected by the Federal Confidentiality of Alcohol and Drug Abuse Patient Records regulations: The Federal rules restrict any use of the information to criminally investigate or prosecute any alcohol or drug abuse patient.[facility] HospitalIn the event this information is protected by the Federal Confidentiality of Alcohol and Drug Abuse Patient Records regulations: The Federal rules restrict any use of the information to criminally investigate or prosecute any alcohol or drug abuse patient.[facility] HospitalIn the event this information is protected by the Federal Confidentiality of Alcohol and Drug Abuse Patient Records regulations: The Federal rules restrict any use of the information to criminally investigate or prosecute any alcohol or drug abuse patient.[facility] HospitalIn the event this information is protected by the Federal Confidentiality of Alcohol and Drug Abuse Patient Records regulations: The Federal rules restrict any use of the information to criminally investigate or prosecute any alcohol or drug abuse patient.[facility] HospitalIn the event this information is protected by the Federal Confidentiality of Alcohol and Drug Abuse Patient Records regulations: The Federal rules restrict any use of the information to criminally investigate or prosecute any alcohol or drug abuse patient.[facility] HospitalIn the event this information is protected by the Federal Confidentiality of Alcohol and Drug Abuse Patient Records regulations: The Federal rules restrict any use of the information to criminally investigate or prosecute any alcohol or drug abuse patient.[facility] HospitalIn the event this information is protected by the Federal Confidentiality of Alcohol and Drug Abuse Patient Records regulations: The Federal rules restrict any use of the information to criminally investigate or prosecute any alcohol or drug abuse patient.[facility] HospitalIn the event this information is protected by the Federal Confidentiality of Alcohol and Drug Abuse Patient Records regulations: The Federal rules restrict any use of the information to criminally investigate or prosecute any alcohol or drug abuse patient.[facility] HospitalIn the event this information is protected by the Federal Confidentiality of Alcohol and Drug Abuse Patient Records regulations: The Federal rules restrict any use of the information to criminally investigate or prosecute any alcohol or drug abuse patient.[facility] HospitalIn the event this information is protected by the Federal Confidentiality of Alcohol and Drug Abuse Patient Records regulations: The Federal rules restrict any use of the information to criminally investigate or prosecute any alcohol or drug abuse patient.[facility] HospitalIn the event this information is protected by the Federal Confidentiality of Alcohol and Drug Abuse Patient Records regulations: The Federal rules restrict any use of the information to criminally investigate or prosecute any alcohol or drug abuse patient.[facility] HospitalIn the event this information is protected by the Federal Confidentiality of Alcohol and Drug Abuse Patient Records regulations: The Federal rules restrict any use of the information to criminally investigate or prosecute any alcohol or drug abuse patient.[facility] HospitalIn the event this information is protected by the Federal Confidentiality of Alcohol and Drug Abuse Patient Records regulations: The Federal rules restrict any use of the information to criminally investigate or prosecute any alcohol or drug abuse patient.[facility] HospitalIn the event this information is protected by the Federal Confidentiality of Alcohol and Drug Abuse Patient Records regulations: The Federal rules restrict any use of the information to criminally investigate or prosecute any alcohol or drug abuse patient.[facility] HospitalIn the event this information is protected by the Federal Confidentiality of Alcohol and Drug Abuse Patient Records regulations: The Federal rules restrict any use of the information to criminally investigate or prosecute any alcohol or drug abuse patient.[facility] HospitalIn the event this information is protected by the Federal Confidentiality of Alcohol and Drug Abuse Patient Records regulations: The Federal rules restrict any use of the information to criminally investigate or prosecute any alcohol or drug abuse patient.[facility] HospitalIn the event this information is protected by the Federal Confidentiality of Alcohol and Drug Abuse Patient Records regulations: The Federal rules restrict any use of the information to criminally investigate or prosecute any alcohol or drug abuse patient.[facility] HospitalIn the event this information is protected by the Federal Confidentiality of Alcohol and Drug Abuse Patient Records regulations: The Federal rules restrict any use of the information to criminally investigate or prosecute any alcohol or drug abuse patient.[facility] HospitalIn the event this information is protected by the Federal Confidentiality of Alcohol and Drug Abuse Patient Records regulations: The Federal rules restrict any use of the information to criminally investigate or prosecute any alcohol or drug abuse patient.[facility] HospitalIn the event this information is protected by the Federal Confidentiality of Alcohol and Drug Abuse Patient Records regulations: The Federal rules restrict any use of the information to criminally investigate or prosecute any alcohol or drug abuse patient.[facility] HospitalIn the event this information is protected by the Federal Confidentiality of Alcohol and Drug Abuse Patient Records regulations: The Federal rules restrict any use of the information to criminally investigate or prosecute any alcohol or drug abuse patient.[facility] HospitalIn the event this information is protected by the Federal Confidentiality of Alcohol and Drug Abuse Patient Records regulations: The Federal rules restrict any use of the information to criminally investigate or prosecute any alcohol or drug abuse patient.[facility] HospitalIn the event this information is protected by the Federal Confidentiality of Alcohol and Drug Abuse Patient Records regulations: The Federal rules restrict any use of the information to criminally investigate or prosecute any alcohol or drug abuse patient.[facility] HospitalIn the event this information is protected by the Federal Confidentiality of Alcohol and Drug Abuse Patient Records regulations: The Federal rules restrict any use of the information to criminally investigate or prosecute any alcohol or drug abuse patient.[facility] HospitalIn the event this information is protected by the Federal Confidentiality of Alcohol and Drug Abuse Patient Records regulations: The Federal rules restrict any use of the information to criminally investigate or prosecute any alcohol or drug abuse patient.[facility] HospitalIn the event this information is protected by the Federal Confidentiality of Alcohol and Drug Abuse Patient Records regulations: The Federal rules restrict any use of the information to criminally investigate or prosecute any alcohol or drug abuse patient.[facility] HospitalIn the event this information is protected by the Federal Confidentiality of Alcohol and Drug Abuse Patient Records regulations: The Federal rules restrict any use of the information to criminally investigate or prosecute any alcohol or drug abuse patient.[facility] HospitalIn the event this information is protected by the Federal Confidentiality of Alcohol and Drug Abuse Patient Records regulations: The Federal rules restrict any use of the information to criminally investigate or prosecute any alcohol or drug abuse patient.[facility] HospitalIn the event this information is protected by the Federal Confidentiality of Alcohol and Drug Abuse Patient Records regulations: The Federal rules restrict any use of the information to criminally investigate or prosecute any alcohol or drug abuse patient.[facility] HospitalIn the event this information is protected by the Federal Confidentiality of Alcohol and Drug Abuse Patient Records regulations: The Federal rules restrict any use of the information to criminally investigate or prosecute any alcohol or drug abuse patient.[facility] HospitalIn the event this information is protected by the Federal Confidentiality of Alcohol and Drug Abuse Patient Records regulations: The Federal rules restrict any use of the information to criminally investigate or prosecute any alcohol or drug abuse patient.[facility] HospitalIn the event this information is protected by the Federal Confidentiality of Alcohol and Drug Abuse Patient Records regulations: The Federal rules restrict any use of the information to criminally investigate or prosecute any alcohol or drug abuse patient.[facility] HospitalIn the event this information is protected by the Federal Confidentiality of Alcohol and Drug Abuse Patient Records regulations: The Federal rules restrict any use of the information to criminally investigate or prosecute any alcohol or drug abuse patient.[facility] HospitalIn the event this information is protected by the Federal Confidentiality of Alcohol and Drug Abuse Patient Records regulations: The Federal rules restrict any use of the information to criminally investigate or prosecute any alcohol or drug abuse patient.[facility] HospitalIn the event this information is protected by the Federal Confidentiality of Alcohol and Drug Abuse Patient Records regulations: The Federal rules restrict any use of the information to criminally investigate or prosecute any alcohol or drug abuse patient.[facility] HospitalIn the event this information is protected by the Federal Confidentiality of Alcohol and Drug Abuse Patient Records regulations: The Federal rules restrict any use of the information to criminally investigate or prosecute any alcohol or drug abuse patient.[facility] HospitalIn the event this information is protected by the Federal Confidentiality of Alcohol and Drug Abuse Patient Records regulations: The Federal rules restrict any use of the information to criminally investigate or prosecute any alcohol or drug abuse patient.[facility] HospitalIn the event this information is protected by the Federal Confidentiality of Alcohol and Drug Abuse Patient Records regulations: The Federal rules restrict any use of the information to criminally investigate or prosecute any alcohol or drug abuse patient.[facility] HospitalIn the event this information is protected by the Federal Confidentiality of Alcohol and Drug Abuse Patient Records regulations: The Federal rules restrict any use of the information to criminally investigate or prosecute any alcohol or drug abuse patient.[facility] HospitalIn the event this information is protected by the Federal Confidentiality of Alcohol and Drug Abuse Patient Records regulations: The Federal rules restrict any use of the information to criminally investigate or prosecute any alcohol or drug abuse patient.[facility] HospitalIn the event this information is protected by the Federal Confidentiality of Alcohol and Drug Abuse Patient Records regulations: The Federal rules restrict any use of the information to criminally investigate or prosecute any alcohol or drug abuse patient.[facility] HospitalIn the event this information is protected by the Federal Confidentiality of Alcohol and Drug Abuse Patient Records regulations: The Federal rules restrict any use of the information to criminally investigate or prosecute any alcohol or drug abuse patient.[facility] HospitalIn the event this information is protected by the Federal Confidentiality of Alcohol and Drug Abuse Patient Records regulations: The Federal rules restrict any use of the information to criminally investigate or prosecute any alcohol or drug abuse patient.[facility] HospitalIn the event this information is protected by the Federal Confidentiality of Alcohol and Drug Abuse Patient Records regulations: The Federal rules restrict any use of the information to criminally investigate or prosecute any alcohol or drug abuse patient.[facility] HospitalIn the event this information is protected by the Federal Confidentiality of Alcohol and Drug Abuse Patient Records regulations: The Federal rules restrict any use of the information to criminally investigate or prosecute any alcohol or drug abuse patient.[facility] HospitalIn the event this information is protected by the Federal Confidentiality of Alcohol and Drug Abuse Patient Records regulations: The Federal rules restrict any use of the information to criminally investigate or prosecute any alcohol or drug abuse patient.[facility] HospitalIn the event this information is protected by the Federal Confidentiality of Alcohol and Drug Abuse Patient Records regulations: The Federal rules restrict any use of the information to criminally investigate or prosecute any alcohol or drug abuse patient.[facility] HospitalIn the event this information is protected by the Federal Confidentiality of Alcohol and Drug Abuse Patient Records regulations: The Federal rules restrict any use of the information to criminally investigate or prosecute any alcohol or drug abuse patient.[facility] HospitalIn the event this information is protected by the Federal Confidentiality of Alcohol and Drug Abuse Patient Records regulations: The Federal rules restrict any use of the information to criminally investigate or prosecute any alcohol or drug abuse patient.[facility] HospitalIn the event this information is protected by the Federal Confidentiality of Alcohol and Drug Abuse Patient Records regulations: The Federal rules restrict any use of the information to criminally investigate or prosecute any alcohol or drug abuse patient.[facility] HospitalIn the event this information is protected by the Federal Confidentiality of Alcohol and Drug Abuse Patient Records regulations: The Federal rules restrict any use of the information to criminally investigate or prosecute any alcohol or drug abuse patient.[facility] HospitalIn the event this information is protected by the Federal Confidentiality of Alcohol and Drug Abuse Patient Records regulations: The Federal rules restrict any use of the information to criminally investigate or prosecute any alcohol or drug abuse patient.[facility] HospitalIn the event this information is protected by the Federal Confidentiality of Alcohol and Drug Abuse Patient Records regulations: The Federal rules restrict any use of the information to criminally investigate or prosecute any alcohol or drug abuse patient.[facility] HospitalIn the event this information is protected by the Federal Confidentiality of Alcohol and Drug Abuse Patient Records regulations: The Federal rules restrict any use of the information to criminally investigate or prosecute any alcohol or drug abuse patient.[facility] HospitalIn the event this information is protected by the Federal Confidentiality of Alcohol and Drug Abuse Patient Records regulations: The Federal rules restrict any use of the information to criminally investigate or prosecute any alcohol or drug abuse patient.[facility] HospitalIn the event this information is protected by the Federal Confidentiality of Alcohol and Drug Abuse Patient Records regulations: The Federal rules restrict any use of the information to criminally investigate or prosecute any alcohol or drug abuse patient.[facility] HospitalIn the event this information is protected by the Federal Confidentiality of Alcohol and Drug Abuse Patient Records regulations: The Federal rules restrict any use of the information to criminally investigate or prosecute any alcohol or drug abuse patient.[facility] HospitalIn the event this information is protected by the Federal Confidentiality of Alcohol and Drug Abuse Patient Records regulations: The Federal rules restrict any use of the information to criminally investigate or prosecute any alcohol or drug abuse patient.[facility] HospitalIn the event this information is protected by the Federal Confidentiality of Alcohol and Drug Abuse Patient Records regulations: The Federal rules restrict any use of the information to criminally investigate or prosecute any alcohol or drug abuse patient.[facility] HospitalIn the event this information is protected by the Federal Confidentiality of Alcohol and Drug Abuse Patient Records regulations: The Federal rules restrict any use of the information to criminally investigate or prosecute any alcohol or drug abuse patient.[facility] HospitalIn the event this information is protected by the Federal Confidentiality of Alcohol and Drug Abuse Patient Records regulations: The Federal rules restrict any use of the information to criminally investigate or prosecute any alcohol or drug abuse patient.[facility] HospitalIn the event this information is protected by the Federal Confidentiality of Alcohol and Drug Abuse Patient Records regulations: The Federal rules restrict any use of the information to criminally investigate or prosecute any alcohol or drug abuse patient.[facility] HospitalIn the event this information is protected by the Federal Confidentiality of Alcohol and Drug Abuse Patient Records regulations: The Federal rules restrict any use of the information to criminally investigate or prosecute any alcohol or drug abuse patient.[facility] HospitalIn the event this information is protected by the Federal Confidentiality of Alcohol and Drug Abuse Patient Records regulations: The Federal rules restrict any use of the information to criminally investigate or prosecute any alcohol or drug abuse patient.[facility] HospitalIn the event this information is protected by the Federal Confidentiality of Alcohol and Drug Abuse Patient Records regulations: The Federal rules restrict any use of the information to criminally investigate or prosecute any alcohol or drug abuse patient.[facility] HospitalIn the event this information is protected by the Federal Confidentiality of Alcohol and Drug Abuse Patient Records regulations: The Federal rules restrict any use of the information to criminally investigate or prosecute any alcohol or drug abuse patient.[facility] HospitalIn the event this information is protected by the Federal Confidentiality of Alcohol and Drug Abuse Patient Records regulations: The Federal rules restrict any use of the information to criminally investigate or prosecute any alcohol or drug abuse patient.[facility] HospitalIn the event this information is protected by the Federal Confidentiality of Alcohol and Drug Abuse Patient Records regulations: The Federal rules restrict any use of the information to criminally investigate or prosecute any alcohol or drug abuse patient.[facility] HospitalIn the event this information is protected by the Federal Confidentiality of Alcohol and Drug Abuse Patient Records regulations: The Federal rules restrict any use of the information to criminally investigate or prosecute any alcohol or drug abuse patient.[facility] HospitalIn the event this information is protected by the Federal Confidentiality of Alcohol and Drug Abuse Patient Records regulations: The Federal rules restrict any use of the information to criminally investigate or prosecute any alcohol or drug abuse patient.[facility] HospitalIn the event this information is protected by the Federal Confidentiality of Alcohol and Drug Abuse Patient Records regulations: The Federal rules restrict any use of the information to criminally investigate or prosecute any alcohol or drug abuse patient.[facility] HospitalIn the event this information is protected by the Federal Confidentiality of Alcohol and Drug Abuse Patient Records regulations: The Federal rules restrict any use of the information to criminally investigate or prosecute any alcohol or drug abuse patient.[facility] HospitalIn the event this information is protected by the Federal Confidentiality of Alcohol and Drug Abuse Patient Records regulations: The Federal rules restrict any use of the information to criminally investigate or prosecute any alcohol or drug abuse patient.[facility] HospitalIn the event this information is protected by the Federal Confidentiality of Alcohol and Drug Abuse Patient Records regulations: The Federal rules restrict any use of the information to criminally investigate or prosecute any alcohol or drug abuse patient.[facility] HospitalIn the event this information is protected by the Federal Confidentiality of Alcohol and Drug Abuse Patient Records regulations: The Federal rules restrict any use of the information to criminally investigate or prosecute any alcohol or drug abuse patient.[facility] HospitalIn the event this information is protected by the Federal Confidentiality of Alcohol and Drug Abuse Patient Records regulations: The Federal rules restrict any use of the information to criminally investigate or prosecute any alcohol or drug abuse patient.[facility] HospitalIn the event this information is protected by the Federal Confidentiality of Alcohol and Drug Abuse Patient Records regulations: The Federal rules restrict any use of the information to criminally investigate or prosecute any alcohol or drug abuse patient.[facility] HospitalIn the event this information is protected by the Federal Confidentiality of Alcohol and Drug Abuse Patient Records regulations: The Federal rules restrict any use of the information to criminally investigate or prosecute any alcohol or drug abuse patient.[facility] HospitalIn the event this information is protected by the Federal Confidentiality of Alcohol and Drug Abuse Patient Records regulations: The Federal rules restrict any use of the information to criminally investigate or prosecute any alcohol or drug abuse patient.[facility] HospitalIn the event this information is protected by the Federal Confidentiality of Alcohol and Drug Abuse Patient Records regulations: The Federal rules restrict any use of the information to criminally investigate or prosecute any alcohol or drug abuse patient.[facility] HospitalIn the event this information is protected by the Federal Confidentiality of Alcohol and Drug Abuse Patient Records regulations: The Federal rules restrict any use of the information to criminally investigate or prosecute any alcohol or drug abuse patient.[facility] HospitalIn the event this information is protected by the Federal Confidentiality of Alcohol and Drug Abuse Patient Records regulations: The Federal rules restrict any use of the information to criminally investigate or prosecute any alcohol or drug abuse patient.[facility] HospitalIn the event this information is protected by the Federal Confidentiality of Alcohol and Drug Abuse Patient Records regulations: The Federal rules restrict any use of the information to criminally investigate or prosecute any alcohol or drug abuse patient.[facility] HospitalIn the event this information is protected by the Federal Confidentiality of Alcohol and Drug Abuse Patient Records regulations: The Federal rules restrict any use of the information to criminally investigate or prosecute any alcohol or drug abuse patient.[facility] HospitalIn the event this information is protected by the Federal Confidentiality of Alcohol and Drug Abuse Patient Records regulations: The Federal rules restrict any use of the information to criminally investigate or prosecute any alcohol or drug abuse patient.[facility] HospitalIn the event this information is protected by the Federal Confidentiality of Alcohol and Drug Abuse Patient Records regulations: The Federal rules restrict any use of the information to criminally investigate or prosecute any alcohol or drug abuse patient.[facility] HospitalIn the event this information is protected by the Federal Confidentiality of Alcohol and Drug Abuse Patient Records regulations: The Federal rules restrict any use of the information to criminally investigate or prosecute any alcohol or drug abuse patient.[facility] HospitalIn the event this information is protected by the Federal Confidentiality of Alcohol and Drug Abuse Patient Records regulations: The Federal rules restrict any use of the information to criminally investigate or prosecute any alcohol or drug abuse patient.[facility] HospitalIn the event this information is protected by the Federal Confidentiality of Alcohol and Drug Abuse Patient Records regulations: The Federal rules restrict any use of the information to criminally investigate or prosecute any alcohol or drug abuse patient.[facility] HospitalIn the event this information is protected by the Federal Confidentiality of Alcohol and Drug Abuse Patient Records regulations: The Federal rules restrict any use of the information to criminally investigate or prosecute any alcohol or drug abuse patient.[facility] HospitalIn the event this information is protected by the Federal Confidentiality of Alcohol and Drug Abuse Patient Records regulations: The Federal rules restrict any use of the information to criminally investigate or prosecute any alcohol or drug abuse patient.[facility] HospitalIn the event this information is protected by the Federal Confidentiality of Alcohol and Drug Abuse Patient Records regulations: The Federal rules restrict any use of the information to criminally investigate or prosecute any alcohol or drug abuse patient.[facility] HospitalIn the event this information is protected by the Federal Confidentiality of Alcohol and Drug Abuse Patient Records regulations: The Federal rules restrict any use of the information to criminally investigate or prosecute any alcohol or drug abuse patient.[facility] HospitalIn the event this information is protected by the Federal Confidentiality of Alcohol and Drug Abuse Patient Records regulations: The Federal rules restrict any use of the information to criminally investigate or prosecute any alcohol or drug abuse patient.[facility] HospitalIn the event this information is protected by the Federal Confidentiality of Alcohol and Drug Abuse Patient Records regulations: The Federal rules restrict any use of the information to criminally investigate or prosecute any alcohol or drug abuse patient.[facility] HospitalIn the event this information is protected by the Federal Confidentiality of Alcohol and Drug Abuse Patient Records regulations: The Federal rules restrict any use of the information to criminally investigate or prosecute any alcohol or drug abuse patient.[facility] HospitalIn the event this information is protected by the Federal Confidentiality of Alcohol and Drug Abuse Patient Records regulations: The Federal rules restrict any use of the information to criminally investigate or prosecute any alcohol or drug abuse patient.[facility] HospitalIn the event this information is protected by the Federal Confidentiality of Alcohol and Drug Abuse Patient Records regulations: The Federal rules restrict any use of the information to criminally investigate or prosecute any alcohol or drug abuse patient.[facility] HospitalIn the event this information is protected by the Federal Confidentiality of Alcohol and Drug Abuse Patient Records regulations: The Federal rules restrict any use of the information to criminally investigate or prosecute any alcohol or drug abuse patient.[facility] HospitalIn the event this information is protected by the Federal Confidentiality of Alcohol and Drug Abuse Patient Records regulations: The Federal rules restrict any use of the information to criminally investigate or prosecute any alcohol or drug abuse patient.[facility] HospitalIn the event this information is protected by the Federal Confidentiality of Alcohol and Drug Abuse Patient Records regulations: The Federal rules restrict any use of the information to criminally investigate or prosecute any alcohol or drug abuse patient.[facility] HospitalIn the event this information is protected by the Federal Confidentiality of Alcohol and Drug Abuse Patient Records regulations: The Federal rules restrict any use of the information to criminally investigate or prosecute any alcohol or drug abuse patient.[facility] HospitalIn the event this information is protected by the Federal Confidentiality of Alcohol and Drug Abuse Patient Records regulations: The Federal rules restrict any use of the information to criminally investigate or prosecute any alcohol or drug abuse patient.[facility] HospitalIn the event this information is protected by the Federal Confidentiality of Alcohol and Drug Abuse Patient Records regulations: The Federal rules restrict any use of the information to criminally investigate or prosecute any alcohol or drug abuse patient.[facility] HospitalIn the event this information is protected by the Federal Confidentiality of Alcohol and Drug Abuse Patient Records regulations: The Federal rules restrict any use of the information to criminally investigate or prosecute any alcohol or drug abuse patient.[facility] HospitalIn the event this information is protected by the Federal Confidentiality of Alcohol and Drug Abuse Patient Records regulations: The Federal rules restrict any use of the information to criminally investigate or prosecute any alcohol or drug abuse patient.[facility] Reason for Visit (unrecogniz ed section and content) Reason Comments New Patient Specialty Diagnoses / Procedures Referred By Contac t Referred To Contact Neurosurgery Diagnoses Brain aneurysm (HCC) Procedures OFFICE/OUTPATIENT NEW HIGH MDM 60 MINUTES Liam Wilkins MD [address] [place] [address] Phone: tel: fax: Referral ID Status Reason Start Date Expiration Date V isits Requested Visits Authorized [id number] Closed PCP Requested Referral 02/02/2025 02/02/2026 1 1 Reason Comments PT Progress Note Specialty Diagnoses / Procedures Referred By Contac t Referred To Contact Physical Therapy / PHYSICAL THERAPY Diagnoses M75.112 (ICD-10-CM) - Incomplete tear of left rotator cuff, unspecified whether traumatic S46.112A (ICD-10-CM) - Labral tear of long head of left biceps tendon, initial encounter Procedures EST RS PT ORTH MSK Liam Wilkins MD [address] [place] [address] Alex Mendenhall PT Referral ID Status Reason Start Date Expiration Date V isits Requested Visits Authorized [id number] Authorized 06/25/2023 06/24/2024 20 20 Reason Comments Physical Therapy Specialty Diagnoses / Procedures Referred By Contac t Referred To Contact [facility] [place] Diagnoses Neural foraminal stenosis of cervical spine Neck pain Procedures CONSULT [facility] OFFICE/OUTPATIENT [facility] MDM 60-74 MINUTES Liam Wilkins MD [address] [place] [address] Referral ID Status Reason Start Date Expiration Date V isits Requested Visits Authorized [id number] Closed PCP Requested Referral 07/24/2022 07/24/2023 1 1 Reason Comments PT Progress Note Specialty Diagnoses / Procedures Referred By Contac t Referred To Contact [facility] Diagnoses Neck pain Procedures CONSULT TO PHYSICAL THERAPY PHYSICAL THERAPY EVALUATION HIGH COMPLEX 45 MINS Liam Wilkins MD [address] [place] [address] [place] [phone] Referral ID Status Reason Start Date Expiration Date Visits Requested Visits Authorized [id number] Authorized Auto-Generat ed Referral 06/25/2021 06/24/2022 20 20 Specialty Diagnoses / Procedures Referred By Contac t Referred To Contact [facility] Diagnoses Neck pain Procedures CONSULT TO PHYSICAL THERAPY PHYSICAL THERAPY EVALUATION HIGH COMPLEX 45 MINS Liam Wilkins MD [address] [place] [address] [address] Specialty Diagnoses / Procedures Referred By Contac t Referred To Contact PHYSICAL THERAPY Diagnoses Dizziness Procedures CONSULT TO PHYSICAL THERAPY PHYSICAL THERAPY EVALUATION HIGH COMPLEX 45 MINS THERAPEUTIC EXERCISES RE, EA 15 MIN. Liam Wilkins MD [facility] [place] [address] [address] Referral ID Status Reason Start Date Expiration Date Visits Requested Visits Authorized [id number] Authorized Auto-Generat ed Referral 09/16/2021 06/24/2022 99 99 Reason Onset Date Comments Refill Request 09/23/2021 Reason Comments Patient Update Reason Comments Appointment Reason Onset Date Comments Refill Request 10/20/2021 Reason Comments New Patient Reason Comments Mass LT and Rt neck x 1 m onth Reason Comments Results Reason Comments Radiology Mammogram Specialty Diagnoses / Procedures Referred By Contac t Referred To Contact [facility] Diagnoses Mass of upper outer quadrant of left breast Breast cancer screening, high risk patient Procedures YAQUELIN DIAGNOSTIC BILAT DIAGNOSTIC MAMMOGRAPHY COMPUTER-AIDED DETCJ BI Bala Wolf, DO [address] [place] [address] [facility] [address] [place] [address] Referral ID Status Reason Start Date Expiration Date V isits Requested Visits Authorized [id number] Closed Auto-Generate d Referral 11/02/2021 12/02/2022 1 1 Reason Comments Radiology US Specialty Diagnoses / Procedures Referred By Contac t Referred To Contact [facility] Diagnoses Mass of upper outer quadrant of left breast Breast cancer screening, high risk patient Procedures US BREAST LTD LT US BREAST UNI REAL TIME WITH IMAGE LIMITED Bala Wolf, DO [address] [place] [address] [facility] [address] [place] [address] Referral ID Status Reason Start Date Expiration Date V isits Requested Visits Authorized [id number] Closed Auto-Generate d Referral 11/02/2021 12/02/2022 1 1 Reason Comments PT Eval Specialty Diagnoses / Procedures Referred By Contac t Referred To Contact PHYSICAL THERAPY Diagnoses Dizziness Procedures CONSULT TO PHYSICAL THERAPY PHYSICAL THERAPY EVALUATION HIGH COMPLEX 45 MINS THERAPEUTIC EXERCISES RE, EA 15 MIN. Liam Wilkins MD [address] [place] [address] [address] Reason Comments F/U 6 months Reason Onset Date Comments Refill Request 02/10/2022 Reason Comments Rash itching x 2 weeks Reason Comments Pain, Neck Reason Comments Refill Request Reason Comments Sore Throat Masters, fatigue, x5 days . Specialty Diagnoses / Procedures Referred By Contac t Referred To Contact [facility] Diagnoses Cervicalgia Procedures MRI CERVICAL SPINE WO IVCON MRI SPINAL CANAL CERVICAL W/O CONTRAST MATRL Liam Wilkins MD [address] [place] [address] Mr Imaging Referral ID Status Reason Start Date Expiration Date V isits Requested Visits Authorized [id number] Closed Auto-Generate d Referral 03/03/2022 04/02/2023 1 1 Reason Comments Patient Update Injection questions Reason Comments PT Re-eval Reason Onset Date Comments Refill Request 05/01/2022 Reason Comments Results Reason Comments Physical Therapy Reason Comments Procedure Specialty Diagnoses / Procedures Referred By Contac t Referred To Contact Pain Management / PAIN MANAGEMENT Diagnoses Spondylosis without myelopathy or radiculopathy, cervical region Medial branch blocks bilateral C4-5 and C5-6 under fluoroscopic guidance Procedures NJX DX/THER AGT PVRT FACET JT CRV/THRC 1 LEVEL NJX DX/THER AGT PVRT FACET JT CRV/THRC 2ND LEVEL PROCEDURE 20 Ramiro Barnett MD [address] [address] Ramiro Barnett MD [address] [place] [address] Referral ID Status Reason Start Date Expiration Date Visits Re quested Visits Authorized [id number] Closed 05/23/2022 08/21/2022 1 1 Reason Comments Neck Pain Follow Up Cervical medial bran ch blocks Specialty Diagnoses / Procedures Referred By Contac t Referred To Contact Pain Management / PAIN MANAGEMENT Diagnoses Routine check-up follow up from mbb Procedures PHYS/QHP TELEPHONE EVALUATION 5-10 MIN PROVIDER SPECIALTY PHONE CALL Ramiro Barnett MD [address] [address] Margarita Traylor, LARGE ENGINE ASSEMBLER.[facility] [address] [place] [address] Referral ID Status Reason Start Date Expiration Date Visits Re quested Visits Authorized [id number] Closed 06/25/2021 06/24/2022 1 1 Reason Comments Referral Request Reason Comments Orders Reason Onset Date Comments Refill Request 09/04/2022 Reason Comments Physical Specialty Diagnoses / Procedures Referred By Contac t Referred To Contact Family Medicine / FAMILY MEDICINE Diagnoses Follow-up exam Physical Procedures OFFICE/OUTPATIENT ESTABLISHED MOD MDM 30-39 MIN 4C EST WELL Liam Wilkins MD [address] [place] [address] Liam Wilkins MD [address] [place] [address] Referral ID Status Reason Start Date Expiration Date Visits Re quested Visits Authorized [id number] Closed 06/25/2022 10/25/2022 1 1 Reason Comments Urinary Problem Pt reported urinary frequency, mid back pain. Reason Comments Recheck Was seen in [facility] for hematuria. Having lower right sided pain Reason Comments Pain Reason Comments Wound Check Wound on diez of lef t leg x 3 days Reason Comments Pain Left arm Reason Comments PT Eval Specialty Diagnoses / Procedures Referred By Orion aguilar Referred To Contact [facility] Diagnoses Acute pain of left shoulder Procedures CONSULT TO PHYSICAL THERAPY PHYSICAL THERAPY EVALUATION HIGH COMPLEX 45 MINS Liam Wilkins MD [address] [place] [address] [facility] [place] [address] [place] [phone] Referral ID Status Reason Start Date Expiration Date Visits Requested Visits Authorized [id number] Authorized Auto-Generat ed Referral 06/25/2022 06/24/2023 20 20 Reason Comments requesting medication Reason Comments Pain LT shoulder Specialty Diagnoses / Procedures Referred By Orion aguilar Referred To Contact MR IMAGING Diagnoses Left shoulder pain, unspecified chronicity Procedures MRI SHOULDER WO IVCON LEFT MRI ANY JT UPPER EXTREMITY W/O CONTRAST MATRL Liam Wilkins MD [address] [place] [address] Mr Imaging [facility] Referral ID Status Reason Start Date Expiration Date V isits Requested Visits Authorized [id number] Closed Auto-Generate d Referral 04/06/2023 05/05/2024 [address] Specialty Diagnoses / Procedures Referred By Orion aguilar Referred To Contact CT IMAGING Diagnoses Flank pain Procedures CT FLANK WO IVCON CT ABD & PELVIS W/O CONTRAST Obdulia Rowley PA-C [address] [place] [address] Ct Imaging [facility] Referral ID Status Reason Start Date Expiration Date V isits Requested Visits Authorized [id number] Closed Auto-Generate d Referral 09/22/2022 10/22/2023 1 1 Reason Comments Radiology [place] Specialty Diagnoses / Procedures Referred By Jeac t Referred To Contact [facility]LECULAR [facility] FUNCTIONAL IMAGING Diagnoses Rib pain on right side Procedures NM BONE WHOLE BODY BONE &/JOINT IMAGING WHOLE BODY Liam Wilkins MD [address] [place] [address] Molecular [facility] Functional [facility] [address] [place] [phone] Referral ID Status Reason Start Date Expiration Date V isits Requested Visits Authorized [id number] Closed Auto-Generate d Referral 10/25/2022 11/24/2023 1 1 Specialty Diagnoses / Procedures Referred By Orion t Referred To Contact CT IMAGING Diagnoses Mass of soft tissue of neck Procedures CT NECK SOFT TISSUE W IVCON CT SOFT TISSUE NECK W/CONTRAST MATERIAL Liam Wilkins MD [facility] [place] [address] Ct Imaging [place] [address] Referral ID Status Reason Start Date Expiration Date V isits Requested Visits Authorized [id number] Closed Auto-Generate d Referral 09/09/2022 10/09/2023 1 1 Reason Comments Appointment Post-op physical the rapy appointment Reason Comments Consult Specialty Diagnoses / Procedures Referred By Orion t Referred To Contact [facility] Diagnoses Incomplete tear of left rotator cuff, unspecified whether traumatic Labral tear of long head of left biceps tendon, initial encounter Procedures CONSULT TO PHYSICAL THERAPY PHYSICAL THERAPY EVALUATION HIGH COMPLEX 45 MINS Megha Seymour PA-C [address] [place] [address] [facility] [place] [address] [place] [address] Referral ID Status Reason Start Date Expiration Date Visits Requested Visits Authorized [id number] Authorized Auto-Generat ed Referral 06/25/2023 06/24/2024 10 10 Reason Comments Established Patient Follow Up Post Op Reason Comments Outside Diabetic Eye Exam Reason Onset Date Comments Refill Request 09/03/2023 Reason Comments Physical Therapy Referral ID Status Reason Start Date Expiration Date V isits Requested Visits Authorized [id number] Closed Auto-Generate d Referral 06/25/2023 06/24/2024 10 10 Reason Comments lichen scerosis Reason Comments colon consult Specialty Diagnoses / Procedures Referred By Orion t Referred To Contact General Surgery Diagnoses Colon cancer screening Procedures CONSULT TO GENERAL SURGERY OFFICE/OUTPATIENT NEW HIGH MDM 60 MINUTES Liam Wilkins MD [address] [place] [address] Referral ID Status Reason Start Date Expiration Date V isits Requested Visits Authorized [id number] Closed PCP Requested Referral 10/31/2023 10/30/2024 1 1 Reason Comments Yearly Exam Reason Comments Patient Question Reason Comments Patient Question Reason Onset Date Comments Refill Request 12/20/2023 Reason Onset Date Comments Refill Request 12/31/2023 Reason Comments medication issue/question regarding pap Reason Comments New Patient New Pt: PCP consult for aortic stenosisPt reports pounding heart rate in times of stress. Specialty Diagnoses / Procedures Referred By Orion t Referred To Contact Procedures CARDIOVASCULAR MEDICINE OP FOLLOW UP APPT ORDER Deng Joe MD [address] [place] [address] Referral ID Status Reason Start Date Expiration Date Visits Requested Visits Authorized [id number] Ref Not Required PCP Requested Referral 3 06/21/2024 1 1 Reason Onset Date Comments Refill Request 03/07/2024 Reason Comments ER F/U Reason Comments [facility] ER visit Reason Comments Patient Question Appointment Reason Comments event monitor Specialty Diagnoses / Procedures Referred By Orion aguilar Referred To Contact PHYSICAL THERAPY Diagnoses Vertigo Procedures CONSULT TO PHYSICAL THERAPY PHYSICAL THERAPY EVALUATION HIGH COMPLEX 45 MINS Liam Wilkins MD [address] [place] [address] Phone: tel: fax: [facility] [address] [place] [address] Phone: tel: fax: Referral ID Status Reason Start Date Expiration Date Visits Requested Visits Authorized [id number] Authorized Auto-Generat ed Referral 06/25/2024 06/24/2025 99 99 Reason Comments Established Patient Follow Up Reason Comments Rx Refills Reason Onset Date Comments Refill Request 09/25/2024 Reason Onset Date Comments Refill Request 10/06/2024 Reason Comments Medicare Wellness Exam Reason Comments Cough Chest congestion, sn eezing, runny nose, sore throat, productive cough, yellow mucous, wheeze and rattling in chest, tightness in chest x 3 days Reason Onset Date Comments Refill Request 11/21/2024 Reason Comments Follow Up Was seen in and i s not feeling any better Reason Comments Insurance Authorization Reason Onset Date Comments Refill Request 12/15/2024 Reason Onset Date Comments Refill Request 12/31/2024 Reason Comments Eye Pain Right Eye Reason Comments Eye Pain Reason Comments Foot Pain Reason Comments left foot pain X 2 weeks Reason Comments MRA brain results Reason Comments Future Appointment New [place] Any Reason Onset Date Comments Results 12/31/2024 Reason Onset Date Comments Refill Request 03/02/2025 Reason Comments Follow Up Care Teams (unrecognized sec tion and content) [employer] Ins[employer] Executive Relationship Specialty Start Date End Date Liam Wilkins MD [address] [place] [address] PCP - General Family Practice 01/05/17 Research & Insights Executive Relationship Specialty Start Date End Date Liam Wilkins MD [address] [place] [address] PCP - General Family Practice 01/05/17 Research & Insights Executive Relationship Specialty Start Date End Date Liam Wilkins MD [address] [place] [address] PCP - General Family Practice 01/05/17 Research & Insights Executive Relationship Specialty Start Date End Date Liam Wilkins MD [address] [place] [address] PCP - General Family Practice 01/05/17 Research & Insights Executive Relationship Specialty Start Date End Date Liam Wilkins MD [address] [place] [address] PCP - General Family Practice 01/05/17 Research & Insights Executive Relationship Specialty Start Date End Date Liam Wilkins MD [address] [place] [address] PCP - General Family Practice 01/05/17 Research & Insights Executive Relationship Specialty Start Date End Date Liam Wilkins MD [address] [place] [address] PCP - General Family Practice 01/05/17 Research & Insights Executive Relationship Specialty Start Date End Date Liam Wilkins MD [address] [place] [address] PCP - General Family Practice 01/05/17 Research & Insights Executive Relationship Specialty Start Date End Date Liam Wilkins MD [facility] [place] [address] PCP - General Family Practice 01/05/17 Research & Insights Executive Relationship Specialty Start Date End Date Liam Wilkins MD [facility] [place] [address] PCP - General Family Practice 01/05/17 Research & Insights Executive Relationship Specialty Start Date End Date Liam Wilkins MD [facility] [place] [address] PCP - General Family Practice 01/05/17 Research & Insights Executive Relationship Specialty Start Date End Date Liam Wilkins MD [facility] [place] [address] PCP - General Family Practice 01/05/17 Research & Insights Executive Relationship Specialty Start Date End Date Liam Wilkins MD [facility] [place] [address] PCP - General Family Practice 01/05/17 Research & Insights Executive Relationship Specialty Start Date End Date Liam Wilkins MD [facility] [place] [address] PCP - General Family Practice 01/05/17 Research & Insights Executive Relationship Specialty Start Date End Date Liam Wilkins MD [address] [place] [address] PCP - General Family Practice 01/05/17 Research & Insights Executive Relationship Specialty Start Date End Date Liam Wilkins MD [address] [place] [address] PCP - General Family Medicine 01/05/17 Research & Insights Executive Relationship Specialty Start Date End Date Liam Wilkins MD [facility] [place] [address] PCP - General Family Medicine 01/05/17 Research & Insights Executive Relationship Specialty Start Date End Date Liam Wilkins MD [address] [place] [address], [place] [address] PCP - General Family Medicine 01/05/17 Research & Insights Executive Relationship Specialty Start Date End Date Liam Wilkins MD [facility] [place] [address] PCP - General Family Medicine 01/05/17 Research & Insights Executive Relationship Specialty Start Date End Date Liam Wilkins MD [facility] [place] [address] PCP - General Family Medicine 01/05/17 Research & Insights Executive Relationship Specialty Start Date End Date Liam Wilkins MD [facility] [place] [address] PCP - General Family Medicine 01/05/17 Research & Insights Executive Relationship Specialty Start Date End Date Liam Wilkins MD [facility] [place] [address] PCP - General Family Medicine 01/05/17 Research & Insights Executive Relationship Specialty Start Date End Date Liam Wilkins MD [facility] [place] [address] PCP - General Family Medicine 01/05/17 Research & Insights Executive Relationship Specialty Start Date End Date Liam Wilkins MD [address] [place] [address] PCP - General Family Medicine 01/05/17 Research & Insights Executive Relationship Specialty Start Date End Date Liam Wilkins MD [address] [place] [address] PCP - General Family Medicine 01/05/17 Research & Insights Executive Relationship Specialty Start Date End Date Liam Wilkins MD [address] [place] [address] PCP - General Family Medicine 01/05/17 Research & Insights Executive Relationship Specialty Start Date End Date Liam Wilkins MD [facility] [place] [address] PCP - General Family Medicine 01/05/17 Research & Insights Executive Relationship Specialty Start Date End Date Liam Wilkins MD [address] [place] [address] PCP - General Family Medicine 01/05/17 Research & Insights Executive Relationship Specialty Start Date End Date Liam Wilkins MD [address] [place] [address] PCP - General Family Medicine 01/05/17 Research & Insights Executive Relationship Specialty Start Date End Date Liam Wilkins MD [address] [place] [address] PCP - General Family Medicine 01/05/17 Research & Insights Executive Relationship Specialty Start Date End Date Liam Wilkins MD [facility] [place] [address] PCP - General Family Medicine 01/05/17 Research & Insights Executive Relationship Specialty Start Date End Date Liam Wilkins MD [facility] [place] [address] PCP - General Family Medicine 01/05/17 Research & Insights Executive Relationship Specialty Start Date End Date Liam Wilkins MD [address] [place] [address] PCP - General Family Medicine 01/05/17 Research & Insights Executive Relationship Specialty Start Date End Date Liam Wilkins MD [address] [place] [address] PCP - General Family Medicine 01/05/17 Research & Insights Executive Relationship Specialty Start Date End Date Liam Wilkins MD [address] [place] [address] PCP - General Family Medicine 01/05/17 Research & Insights Executive Relationship Specialty Start Date End Date Liam Wilkins MD [address] [place] [address] PCP - General Family Medicine 01/05/17 Research & Insights Executive Relationship Specialty Start Date End Date Liam Wilkins MD [address] [place] [address] PCP - General Family Medicine 01/05/17 Research & Insights Executive Relationship Specialty Start Date End Date Liam Wilkins MD [address] [place] [address] PCP - General Family Medicine 01/05/17 Research & Insights Executive Relationship Specialty Start Date End Date Liam Wilkins MD [address] [place] [address] PCP - General Family Medicine 01/05/17 Research & Insights Executive Relationship Specialty Start Date End Date Liam Wilkins MD [address] [place] [address] PCP - General Family Medicine 01/05/17 Research & Insights Executive Relationship Specialty Start Date End Date Liam Wilkins MD [address] [place] [address] PCP - General Family Medicine 01/05/17 Research & Insights Executive Relationship Specialty Start Date End Date Liam Wilkins MD [address] [place] [address] PCP - General Family Medicine 01/05/17 Research & Insights Executive Relationship Specialty Start Date End Date Liam Wilkins MD [address] [place] [address] PCP - General Family Medicine 01/05/17 Research & Insights Executive Relationship Specialty Start Date End Date Liam Wilkins MD [address] [place] [address] PCP - General Family Medicine 01/05/17 Research & Insights Executive Relationship Specialty Start Date End Date Liam Wilkins MD [address] [place] [address] PCP - General Family Medicine 01/05/17 Research & Insights Executive Relationship Specialty Start Date End Date Liam Wilkins MD [address] [place] [address] PCP - General Family Medicine 01/05/17 Research & Insights Executive Relationship Specialty Start Date End Date Liam Wilkins MD [address] [place] [address] PCP - General Family Medicine 01/05/17 Research & Insights Executive Relationship Specialty Start Date End Date Liam Wilkins MD [address] [place] [address] PCP - General Family Medicine 01/05/17 Research & Insights Executive Relationship Specialty Start Date End Date Liam Wilkins MD [address] [place] [address] PCP - General Family Medicine 01/05/17 Research & Insights Executive Relationship Specialty Start Date End Date Liam Wilkins MD [address] [place] [address] PCP - General Family Medicine 01/05/17 Research & Insights Executive Relationship Specialty Start Date End Date Liam Wilkins MD [address] [place] [address] PCP - General Family Medicine 01/05/17 Research & Insights Executive Relationship Specialty Start Date End Date Liam Wilkins MD [address] [place] [address] PCP - General Family Medicine 01/05/17 Research & Insights Executive Relationship Specialty Start Date End Date Liam Wilkins MD [address] [place] [address] PCP - General Family Medicine 01/05/17 Research & Insights Executive Relationship Specialty Start Date End Date Liam Wilkins MD [address] [place] [address] PCP - General Family Medicine 01/05/17 Research & Insights Executive Relationship Specialty Start Date End Date Liam Wilkins MD [address] [place] [address] PCP - General Family Medicine 01/05/17 Research & Insights Executive Relationship Specialty Start Date End Date Liam Wilkins MD [address] [place] [address] PCP - General Family Medicine 01/05/17 Research & Insights Executive Relationship Specialty Start Date End Date Liam Wilkins MD [address] [place] [address] PCP - General Family Medicine 01/05/17 Research & Insights Executive Relationship Specialty Start Date End Date Liam Wilkins MD [address] [place] [address] PCP - General Family Medicine 01/05/17 Research & Insights Executive Relationship Specialty Start Date End Date Liam Wilkins MD [address] [place] [address] PCP - General Family Medicine 01/05/17 Research & Insights Executive Relationship Specialty Start Date End Date Liam Wilkins MD [address] [place] [address] PCP - General Family Medicine 01/05/17 Research & Insights Executive Relationship Specialty Start Date End Date Liam Wilkins MD [address] [place] [address] PCP - General Family Medicine 01/05/17 Research & Insights Executive Relationship Specialty Start Date End Date Liam Wilkins MD [address] [place] [address] PCP - General Family Medicine 01/05/17 Research & Insights Executive Relationship Specialty Start Date End Date Liam Wilkins MD [address] [place] [address] PCP - General Family Medicine 01/05/17 Research & Insights Executive Relationship Specialty Start Date End Date Liam Wilkins MD [address] [place] [address] PCP - General Family Medicine 01/05/17 Research & Insights Executive Relationship Specialty Start Date End Date Liam Wilkins MD [address] [place] [address] PCP - General Family Medicine 01/05/17 Research & Insights Executive Relationship Specialty Start Date End Date Liam Wilkins MD [address] [place] [address] PCP - General Family Medicine 01/05/17 Research & Insights Executive Relationship Specialty Start Date End Date Liam Wilkins MD [address] [place] [address] PCP - General Family Medicine 01/05/17 Research & Insights Executive Relationship Specialty Start Date End Date Liam Wilkins MD [address] [place] [address] PCP - General Family Medicine 01/05/17 Research & Insights Executive Relationship Specialty Start Date End Date Liam Wilkins MD [address] [place] [address] PCP - General Family Medicine 01/05/17 Research & Insights Executive Relationship Specialty Start Date End Date Liam Wilkins MD [address] [place] [address] PCP - General Family Medicine 01/05/17 Research & Insights Executive Relationship Specialty Start Date End Date Liam Wilkins MD [address] [place] [address] PCP - General Family Medicine 01/05/17 Research & Insights Executive Relationship Specialty Start Date End Date Liam Wilkins MD [address] [place] [address] PCP - General Family Medicine 01/05/17 Research & Insights Executive Relationship Specialty Start Date End Date Liam Wilkins MD [address] [place] [address] PCP - General Family Medicine 01/05/17 Research & Insights Executive Relationship Specialty Start Date End Date Liam Wilkins MD [address] [place] [address] PCP - General Family Medicine 01/05/17 Research & Insights Executive Relationship Specialty Start Date End Date Liam Wilkins MD [address] [place] [address] PCP - General Family Medicine 01/05/17 Research & Insights Executive Relationship Specialty Start Date End Date Liam Wilkins MD [address] [place] [address] PCP - General Family Medicine 01/05/17 Jojo Anderson APRN.CNP [address] [place] [address] [facility] 05/31/24 Obdulia Rowley PA-C [address] [place] [address] [facility] 05/31/24 Research & Insights Executive Relationship Specialty Start Date End Date Liam Wilkins MD [address] [place] [address] PCP - General Family Medicine 01/05/17 Jojo Anderson, LYNN.INTEL RECRUITER [address] [facility] [place] [address] [facility] 05/31/24 Obdulia Rowley PA-C [address] [place] [address] [facility] 05/31/24 Research & Insights Executive Relationship Specialty Start Date End Date Liam Wilkins MD [address] [place] [address] PCP - General Family Medicine 01/05/17 Jojo Anderson, LYNN.INTEL RECRUITER [address] [place] [address] [facility] 05/31/24 Obdulia Rowley PA-C [address] [place] [address] [facility] 05/31/24 Research & Insights Executive Relationship Specialty Start Date End Date Liam Wilkins MD [address] [place] [address] PCP - General Family Medicine 01/05/17 Jojo Anderson, LYNN.INTEL RECRUITER [address] [place] [address] [facility] 05/31/24 Obdulia Rowley PA-C [address] [place] [address] [facility] 05/31/24 Research & Insights Executive Relationship Specialty Start Date End Date Liam Wilkins MD [address] [place] [address] PCP - General Family Medicine 01/05/17 Jojo Anderson, LYNN.INTEL RECRUITER [address] [place] [address] [facility] 05/31/24 Obdulia Rowley PA-C [address] [place] [address] [facility] 05/31/24 Research & Insights Executive Relationship Specialty Start Date End Date Liam Wilkins MD [address] [place] [address] PCP - General Family Medicine 01/05/17 Jojo Anderson, LARGE ENGINE ASSEMBLER.INTEL RECRUITER [address] [place] [address] [facility] 05/31/24 Obdulia Rowley PA-C [address] [place] [address] [facility] 05/31/24 Research & Insights Executive Relationship Specialty Start Date End Date Liam Wilkins MD [address] [place] [address] PCP - General Family Medicine 01/05/17 Jojo Anderson, LARGE ENGINE ASSEMBLER.INTEL RECRUITER [address] [place] [address] [facility] 05/31/24 Obdulia Rowley PA-C [address] [place] [address] [facility] 05/31/24 Research & Insights Executive Relationship Specialty Start Date End Date Liam Wilkins MD [address] [place] [address] PCP - General Family Medicine 01/05/17 Jojo Anderson APRN.INTEL RECRUITER [address] [place] [address] [facility] 05/31/24 Obdulia Rowley PA-C [address] [place] [address] [facility] 05/31/24 Research & Insights Executive Relationship Specialty Start Date End Date Liam Wilkins MD [address] [place] [address] PCP - General Family Medicine 01/05/17 Jojo Anderson, LYNN.INTEL RECRUITER [address] [place] [address] [facility] 05/31/24 Obdulia Rowley PA-C [address] [place] [address] [facility] 05/31/24 Research & Insights Executive Relationship Specialty Start Date End Date Liam Wilkins MD [address] [place] [address] PCP - General Family Medicine 01/05/17 Jojo Anderson APRN.INTEL RECRUITER [address] [place] [address] [facility] 05/31/24 Obdulia Rowley PA-C [address] [place] [address] [facility] 05/31/24 Research & Insights Executive Relationship Specialty Start Date End Date Liam Wilkins MD [address] [place] [address] PCP - General Family Medicine 01/05/17 Jojo Anderson APRN.INTEL RECRUITER [address] [place] [address] [facility] 05/31/24 Obdulia Rowley PA-C [address] [place] [address] [facility] 05/31/24 Research & Insights Executive Relationship Specialty Start Date End Date Liam Wilkins MD [address] [place] [address] PCP - General Family Medicine 09/29/24 Jojo Anderson APRN.INTEL RECRUITER [address] [place] [address] [facility] 05/31/24 Obdulia Rowley PA-C [address] [place] [address] [facility] 05/31/24 Research & Insights Executive Relationship Specialty Start Date End Date Liam Wilkins MD [address] [place], [place] [address] PCP - General Family Medicine 09/29/24 Jojo Anderson, LYNN.INTEL RECRUITER [facility] [place] [address] [facility] 05/31/24 Obdulia Rowley PA-C [address] [place] [address] [facility] 05/31/24 Research & Insights Executive Relationship Specialty Start Date End Date Liam Wilkins MD [address] [place] [address] PCP - General Family Medicine 09/29/24 Obdulia Rowley PA-C [address] [place] [address] [facility] Research & Insights Executive Relationship Specialty Start Date End Date Liam Wilkins MD [address] [place] [address] PCP - General Family Medicine 09/29/24 Obdulia Rowley PA-C [address] [place] [address] [facility] 05/31/24 Research & Insights Executive Relationship Specialty Start Date End Date Liam Wilkins MD [address] [place] [address] PCP - General Family Medicine 09/29/24 Jojo Anderson APRN.CNP [address] [place] [address] [facility] 11/24/24 Obdulia Rowley PA-C [address] [place] [address] [facility] 11/24/24 Research & Insights Executive Relationship Specialty Start Date End Date Liam Wilkins MD [address] [place] [address] PCP - General Family Medicine 09/29/24 Jojo Anderson APRN.INTEL RECRUITER [address] [place] [address] [facility] 11/24/24 Obdulia Rowley PA-C [address] [place] [address] [facility] 11/24/24 Research & Insights Executive Relationship Specialty Start Date End Date Liam Wilkins MD [address] [place] [address] PCP - General Family Medicine 09/29/24 Jojo Anderson APRN.INTEL RECRUITER [address] [place] [address] [facility] 11/24/24 Obdulia Rowley PA-C [facility] [place] [address] [facility] 11/24/24 Research & Insights Executive Relationship Specialty Start Date End Date Liam Wilkins MD [address] [place] [address] PCP - General Family Medicine 09/29/24 Jojo Anderson APRN.INTEL RECRUITER [facility] [place] [address] [facility] 11/24/24 Obdulia Rowley PA-C [address] [place] [address] [facility] 11/24/24 Research & Insights Executive Relationship Specialty Start Date End Date iLam Wilkins MD [address] [place] [address] PCP - General Family Medicine 09/29/24 Jojo Anderson, LYNN.INTEL RECRUITER [address] [place] [address] [facility] 11/24/24 Obdulia Rowley PA-C [address] [place] [address] [facility] 11/24/24 Research & Insights Executive Relationship Specialty Start Date End Date Liam Wilkins MD [address] [place] [address] PCP - General Family Medicine 09/29/24 Jojo Anderson, LARGE ENGINE ASSEMBLER.INTEL RECRUITER [address] [place] [address] [facility] 11/24/24 Obdulia Rowley PA-C [address] [place] [address] [facility] 11/24/24 Research & Insights Executive Relationship Specialty Start Date End Date Liam Wilkins MD [address] [place] [address] PCP - General Family Medicine 09/29/24 Jojo Anderson, LARGE ENGINE ASSEMBLER.INTEL RECRUITER [address] [place] [address] [facility] 11/24/24 Obdulia Rowley PA-C [address] [place] [address] [facility] 11/24/24 Research & Insights Executive Relationship Specialty Start Date End Date Liam Wilkins MD [address] [place] [address] PCP - General Family Medicine 09/29/24 Jojo Anderson APRN.INTEL RECRUITER [address] [place] [id number] [facility] 11/24/24 Obdulia Rowley PA-C [facility] [place] [address] [facility] 11/24/24 Research & Insights Executive Relationship Specialty Start Date End Date Liam Wilkins MD [address] [place] [id number] PCP - General Family Medicine 09/29/24 Jojo Anderson APRN.INTEL RECRUITER [address] [place] [address] [facility] 11/24/24 Obdulia Rowley PA-C [facility] [place] [address] [facility] 11/24/24 Research & Insights Executive Relationship Specialty Start Date End Date Liam Wilkins MD [address] [place] [address] PCP - General Family Medicine 09/29/24 Jojo Anderson APRN.INTEL RECRUITER [facility] [place] [address] [facility] 11/24/24 Obdulia Rowley PA-C [address] [place] [address] [facility] 11/24/24 Research & Insights Executive Relationship Specialty Start Date End Date Liam Wilkins MD [address] [place] [address] PCP - General Family Medicine 09/29/24 Jojo Anderson APRN.INTEL RECRUITER [address] [place] [address] [facility] 11/24/24 Obdulia Rowley PA-C [address] [place] [address] [facility] 11/24/24 Research & Insights Executive Relationship Specialty Start Date End Date Liam Wilkins MD [address] [place] [address] PCP - General Family Medicine 09/29/24 Jojo Anderson APRN.INTEL RECRUITER [address] [place] [address] [facility] 11/24/24 Obdulia Rowley PA-C [address] [place] [address] [facility] 11/24/24 Research & Insights Executive Relationship Specialty Start Date End Date Liam Wilkins MD [address] [place] [address] PCP - General Family Medicine 09/29/24 Jojo Anderson APRN.INTEL RECRUITER [address] [place] [address] [facility] 11/24/24 Obdulia Rowley PA-C [address] [place] [address] [facility] 11/24/24 Research & Insights Executive Relationship Specialty Start Date End Date Liam Wilkins MD [address] [place] [address] PCP - General Family Medicine 09/29/24 Jojo Anderson APRN.INTEL RECRUITER [address] [place] [address] [facility] 11/24/24 Obdulia Rowley PA-C [facility] [place] [address] [facility] 11/24/24 Research & Insights Executive Relationship Specialty Start Date End Date Liam Wilkins MD [address] [place] [address] PCP - General Family Medicine 09/29/24 Jojo Anderson APRN.INTEL RECRUITER [facility] [place] [address] [facility] 11/24/24 Obdulia Rowley PA-C [address] [place] [address] [facility] 11/24/24 Research & Insights Executive Relationship Specialty Start Date End Date Liam Wilkins MD [address], [place] [id number] PCP - General Family Medicine 09/29/24 Jojo Anderson, LARGE ENGINE ASSEMBLER.INTEL RECRUITER [address] [place] [address] [facility] 11/24/24 Obdulia Rowley PA-C [address] [place] [address] [facility] 11/24/24 Research & Insights Executive Relationship Specialty Start Date End Date Liam Wilkins MD [address] [place] [address] PCP - General Family Medicine 09/29/24 Jojo Anderson, LARGE ENGINE ASSEMBLER.INTEL RECRUITER [address] [place] [address] [facility] 11/24/24 Obdulia Rowley PA-C [address] [place] [address] [facility] 11/24/24 Research & Insights Executive Relationship Specialty Start Date End Date Liam Wilkins MD [address] [place] [address] PCP - General Family Medicine 09/29/24 Jojo Anderson, LARGE ENGINE ASSEMBLER.INTEL RECRUITER [facility] [place] [address] [facility] 11/24/24 Obdulia Rowley PA-C [address] [place] [address] [facility] 11/24/24 Research & Insights Executive Relationship Specialty Start Date End Date Liam Wilkins MD [address], [place] [id number] PCP - General Family Medicine 09/29/24 Jojo Anderson APRN.CNP [address] [place] [address] [facility] 11/24/24 Obdulia Rowley PA-C [address] [place] [address] [facility] 11/24/24 INFORMATION SOURCE (unrecogn ized section and content) DATE CREATED AUTHOR 02/02/2025 [facility] DATE CREATED AUTHOR AUTHOR'S ORGANIZ ATION 02/15/2025 [facility] DATE CREATED AUTHOR AUTHOR'S ORGANIZ ATION 02/25/2025 [facility] DATE CREATED AUTHOR AUTHOR'S ORGANIZ ATION 02/28/2025 [facility] DATE CREATED AUTHOR AUTHOR'S ORGANIZ ATION 03/01/2025 [facility] FOR RECORDS PERTAINING TO PATIENTS WHO ARE OR HAVE BEEN ENROLLED IN A CHEMICAL DEPENDENCY/SUBSTANCEABUSE PROGRAM, SOME INFORMATION MAY BE OMITTED. This clinical summary was aggregated from multiple sources. Caution should be exercised in using it in the provision of clinical care. This summary normalizes information from multiple sources, and as a consequence, information in this document may materially change the coding, format and clinical context of patient data. In addition, data may be omitted in some cases. CLINICAL DECISIONS SHOULD BE BASED ON THE PRIMARY CLINICAL RECORDS. [employer] provides no warranty or guarantee of the accuracy or completeness of information in this document.
== END | disposition home or self-care (01) ==
LOC: OPMRI 16:13
PROVIDERS: PCP Family Medicine; Referring Provider Podiatrist; Visit Provider Podiatrist
DX: M84.375A Stress fracture, left foot, initial encounter for fracture (principal); M19.072 Primary osteoarthritis, left ankle and foot; M79.672 Pain in left foot
CPT/HCPCS: 73718

== ENCOUNTER 2025-03-16 13:57 | Emergency (ER) | payer BC, SELFPAY ==
[2025-03-16 14:00] VITALS: BP 128/63; PULSE 89; RESP 17; TEMP 36.4; O2SAT 100
--- NOTE | 2025-03-16 15:35 | EX.ED.GENINJ ---
HPI History of Present Illness Chief Complaint: Fall [facility] Medical History Hypothyroidism History of cancer chemotherapy Home Medications ?Medication ?Instructions ?Recorded ?Last Taken ?Type Amitriptyline HCl 25 mg PO QHS 12/13/15 03/18/17 20:00 History Lipitor 40 mg PO QHS 12/13/15 03/18/17 20:00 History Synthroid 100 mcg PO DAILY 12/13/15 03/18/17 07:00 History albuterol sulfate 90 mcg/actuation 1 puff inhalation DAILY PRN PRN 12/26/15 12/26/15 History aerosol inhaler (Ventolin HFA) Shortness Of Breath guaifenesin 1,200 mg tablet, 1,200 mg PO BID 12/26/15 03/18/17 20:00 History extended release 12 hr (Mucus Relief ER) albuterol sulfate 2.5 mg/3 mL 2.5 mg inhalation Q4H PRN PRN 03/19/17 03/18/17 07:00 History (0.083 %) solution for nebulization Shortness Of Breath metoprolol succinate 25 mg 25 mg PO DAILY #30 tabs 06/12/24 Unknown Rx tablet,extended release 24 hr Allergy/AdvReac Type Severity Reaction Status Date / Time typhoid 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 Anaphylaxis Verified 03/16/25 14:01 Surgical History (Updated 06/11/24 @ 21:49 by Suad Fragoso) History of tonsillectomy Hx of mastectomy Social History Smoking Status: Never smoker EXAM Physical Exam Const Vital Signs: 03/16/25 14:00 Temperature 97.6 F L Temperature Source Temporal Pulse Rate 89 Respiratory Rate 17 Blood Pressure 128/63 H Blood Pressure Mean 84 Pulse Ox 100 Oxygen Delivery Method Room Air MDM MDM MDM Narrative Medical decision making narrative: HISTORY OF PRESENT ILLNESS: Chief complaint: Fall 75-year-old female history of type 2 diabetes, hyperlipidemia, asthma, breast cancer presents with left hand injury after fall. The patient states that she was outside at her PCPs office when she suffered a mechanical fall. She denies head trauma or loss of consciousness. REVIEW OF SYSTEMS: Pertinent positives: Hand pain, wound Pertinent negatives: Elbow pain, shoulder pain, LOC PHYSICAL EXAM: Nursing triage notes reviewed, Vital signs reviewed Primary Survey Airway: Intact Breathing: Bilateral breath sounds Circulation: Palpable bilateral femorals, Palpable bilateral radial, Palpable bilateral DP and Palpable bilateral PT Disability / Spine precautions GCS Score: Eye Openin Verbal Response: 5 Motor Response: 6 Secondary Survey Constitutional: Please see MDM Head: Atraumatic, Midface stable, NO jaw malocclusion, No Cephalohematoma, and No Lacerations noted Eye: Pupils equal round and reactive to light, Extraocular muscles intact and No periorbital ecchymosis or stepoff, no evidence of entrapment ENT: Oropharynx clear, no lacerations, no hemotympanum, no raccoon eyes or vyas sign Cervical spine / Neck: No cervical spine bony tenderness, crepitance, or stepoff deformity Trachea midline Lungs: Clear to auscultation, No asymmetric rise and No crepitus, no flail chest Cardiac: Regular rate and rhythm and No murmurs Abdomen: Soft, Nontender and No rebound Pelvis: Pelvis stable to compression : No evidence of genital injury Back: No midline bony tenderness to thoracic/lumbar/sacral spines Neuro: At baseline, intact strength and sensation in bilateral upper and lower extremities. 2+ patellar reflexes bilaterally. Extremities: NO gross Deformities Psych: Normal affect Skin: Proximal 3 x 3 cm area of skin tear noted to the dorsal surface of the distal left wrist. There is a little bit of mild oozing but no active bleeding noted. No lacerations noted Nursing triage notes reviewed, Vital signs reviewed MEDICAL DECISION MAKING: Chief Complaint: please see HPI External records reviewed: Reviewed prior imaging studies. No recent advanced imaging noted of the hand Factors affecting care: none Social determinants of health: none History obtained from others: none Consults: none [facility] Narrative: The patient was initially hemodynamically stable, afebrile and nontoxic-appearing. Primary secondary trauma surveys concerning for the following differential Exam consistent with skin tear. No laceration to repair. Tetanus will be updated. Wound will be cleansed. Bacitracin will be applied. Surgicel hemostatic dressing will be applied. Wound will be dressed. Discussed return precautions, wound care instructions and infection signs The patient and/or family, caregivers express understanding. The patient and/or family, caregivers agrees with the plan. Shared decision making: I will have a discussion with the patient and or visitors regarding risk/benefits of further testing or admission. They will be made aware of of the risk/benefits inherent in this decision they will be given the opportunity to voice understanding. Total critical care time today provided was at least 0 minutes. This excludes separately billable procedures. Critical care time (if documented) is secondary to the patient having high probability of clinically significant/life threatening deterioration in the patient's condition which required my urgent intervention. Impression: 1. Skin tear 2. Left upper extremity contusion Dispo: Discharge home This note was generated with [employer] dictation software. It may contain incorrect words, spelling, and punctuation that were not noted in review of the chart prior to signing. Discharge Plan Triage Chief Complaint: Fall ED Provider: Austin Pérez Dx/Rx/DC Orders Prescriptions: No Action Amitriptyline HCl 25 mg PO QHS Patient Comments: sleep/mental health Lipitor 40 mg PO QHS Patient Comments: cholesterol Synthroid 100 mcg PO DAILY Patient Comments: thyroid albuterol sulfate [Ventolin HFA] 1 INHALER inhaler 1 puff inhalation DAILY PRN PRN (Reason: Shortness Of Breath) Patient Comments: breathing guaifenesin [Mucus Relief ER] 1,200 MG tablet 1,200 mg PO BID Patient Comments: cough albuterol sulfate 2.5 MG/3 ML solution for nebulization 2.5 mg inhalation Q4H PRN PRN (Reason: Shortness Of Breath) Patient Comments: breathing metoprolol succinate 25 mg tablet extended release 24 hr 25 mg PO DAILY Qty: 30 0RF Primary Care Provider: Liam Solano Referrals: Liam Solano MD [Primary Care Provider, Family Practice] Print Language: Colombian
== END 2025-03-16 16:29 | disposition home or self-care (01) ==
PROVIDERS: Emergency Provider Emergency Medicine; PCP Family Medicine; Visit Provider Emergency Medicine
DX: S61.512A Laceration without foreign body of left wrist, initial encounter (principal); E11.9 Type 2 diabetes mellitus without complications; S40.022A Contusion of left upper arm, initial encounter; W19.XXXA Unspecified fall, initial encounter; E03.9 Hypothyroidism, unspecified; E78.5 Hyperlipidemia, unspecified; Z23 Encounter for immunization; J45.909 Unspecified asthma, uncomplicated; Z85.3 Personal history of malignant neoplasm of breast; Z92.21 Personal history of antineoplastic chemotherapy; Z79.890 Hormone replacement therapy; Z79.899 Other long term (current) drug therapy
CPT/HCPCS: 90471; 90715; 99282